=== PATIENT | male | born 1950 | race Caucasian/White ===

== ENCOUNTER 2018-02-01 22:50 | Inpatient (IN) | payer OTHER ==
[~2018-02-01] VITALS: Ht 185.4 cm; Wt 146.1 kg
[~2018-02-01 22:50] MED LIST: ACT/45 PO; ALLO100T57 PO; AMLO10TA3 PO; ATOR-24 PO; BTP80 PO; CLON0.3T PO; DABI150C3 PO; HYDR25TA4 PO; LISI40TA PO; LSX40 PO; LVMI SC; MAGN400T6 PO; METF1000 PO; NRN100 PO; PANT40TA PO; POTA-639 PO; REPA1TAB40 PO; TERA1CAP38 PO; ZOLP10TA PO
[2018-02-01 23:18] LABS: BASO % 0.3 %; BASO ABS # 0.02 K/uL (0-0.2); EOS % 2.6 %; EOS ABS # 0.18 K/uL (0-0.5); HEMATOCRIT 48.7 % (42-52); HEMOGLOBIN 16.2 g/dL (14.0-18.0); IG# 0.02 K/uL (0.00-0.02); LYMPH % 28.5 %; LYMPH ABS # 1.97 K/uL (1.2-3.4); MEAN CELL VOLUME 91.2 fL (80-100); MEAN CORPUSCULAR HEMOGLOBIN 30.3 pg (25-34); MEAN CORPUSCULAR HGB CONC 33.3 g/dl (32-36); MEAN PLATELET VOLUME 9.3 fL (7.4-10.4); MONO % 11.7 %; MONO ABS # 0.81 K/uL (0.11-0.59); NEUT % 56.6 %; NEUT ABS # 3.92 K/uL (1.4-6.5); PLATELET COUNT 168 K/uL (130-400); RED CELL DISTRIBUTION WIDTH CV 15.1 % (11.5-14.5); RED CELL DISTRIBUTION WIDTH SD 49.9 fL (36.4-46.3); WHITE BLOOD COUNT 6.92 K/uL (4.8-10.8)
[2018-02-01] MEDS ORDERED: SODIUM CHLORIDE 0.9% 500ML 500 ML IV STA (23:20)
--- NOTE | 2018-02-01 23:29 | EMERGENCY ROOM VISIT NOTE ---
History Report prepared by Nikolai: Franny Bella Under the Supervision of: Dr. Ja Kilgore M.D. First contact with patient: 22:56 Chief Complaint: CARDIAC ASSESSMENT Stated Complaint: A FIB History of Present Illness The patient is a 67 year old male who presents to the Emergency Room with complaints of an intermittent "racing" heart that began at 2200, one hour ago. He states that he did previously feel nauseous, but denies any vomiting. The patient also denies being lightheaded and being out in the heat today. He has been here several times before for afib and aflutter. He states that the first few times he came here for these symptoms he was given medication that took him out of his aflutter, but more recently, he goes out of this flutter on his own. He was admitted two years ago to be put on sotalol, which worked for his symptoms up until 2 months ago. He also reports being on perdaxa, but denies being on coumadin. The patient states that he follows with Dr. Blankenship who recently put him on a heart monitor for 2 weeks and got off of it on the 18 of January. He states that he has previously had low magnesium and takes 4 tablets to keep his magnesium regular. He denies any previous thyroid issues. 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 A total of 10 systems reviewed and were otherwise negative. Past Medical & Surgical Medical Problems: (1) AA (alcohol abuse) (2) Atrial fibrillation with rapid ventricular response (3) Cerebral aneurysm (4) DM (diabetes mellitus) (5) Encounter for monitoring anti-arrhythmic therapy (6) GERD (gastroesophageal reflux disease) (7) Gout (8) HTN (hypertension) (9) Hyperlipemia Surgical Problems: (1) H/O removal of cyst (2) History of inguinal hernia repair (3) History of repair of anterior cruciate ligament of right knee Family History Diabetes mellitus MOTHER FH: cancer FATHER (Liver) FH: heart disease MOTHER Social History Smoking Status: Never Smoker Drug Use: none Marital Status: Housing Status: lives with family Occupation Status: retired Current/Historical Medications Scheduled Amlodipine (Norvasc), 10 MG PO DAILY Atorvastatin (Lipitor), 40 MG PO DAILY Clonidine Hcl (Catapres), 0.3 MG PO BID Dabigatran Elexilate (Pradaxa), 150 MG PO BID Furosemide (Furosemide), 20 MG PO DAILY Gabapentin (Gabapentin), 100 MG PO TID Hydrochlorothiazide (Hctz), 12.5 MG PO DAILY Insulin Detemir (Levemir), 80 UNITS SC HS Lisinopril (Zestril), 40 MG PO QAM Magnesium Oxide (Mag-Ox), 800 MG PO BID Metformin Hcl (Glucophage), 1,000 MG PO BID Pantoprazole (Protonix), 40 MG PO BID Pioglitazone Hcl (Actos), 45 MG PO DAILY Potassium Ext Rel (Klor-Con), 20 MEQ PO DAILY Repaglinide (Prandin), 1 MG PO DAILY Sotalol HCl (Sotalol HCl), 80 MG PO BID Sucralfate (Sucralfate), 1 TAB PO ACHS Terazosin HCl (Terazosin HCl), 1 MG PO DAILY Scheduled PRN Allopurinol (Zyloprim), 200 MG PO DAILY PRN for GOUT Zolpidem Tartrate (Ambien), 10 MG PO HS PRN for Sleep Allergies Coded Allergies: Simvastatin (Verified Allergy, Intermediate, myalgias, 02/02/18) Sildenafil (Verified Allergy, Unknown, severe headache, 02/02/18) Physical Exam Vital Signs Date Time Temp Pulse Resp B/P (MAP) Pulse Ox O2 Delivery O2 Flow Rate FiO2 02/02/18 00:38 106 18 136/84 96 Room Air 02/01/18 23:49 101 18 136/81 95 Room Air 02/01/18 23:34 106 02/01/18 23:07 107 02/01/18 22:53 36.7 108 18 159/98 100 Room Air Physical Exam GENERAL: Patient is well appearing and in no acute distress. EYES: No scleral icterus, unremarkable pupils. ENT: Mucous membranes moist, no nasal congestion. NECK: No masses appreciated, no meningismus, trachea is midline. RESPIRATORY: No dyspnea. Clear to auscultation and equal bilaterally. No wheeze , no rhonchi. CARDIOVASCULAR: Tachycardic and steady. No murmurs, rubs, gallops appreciated. GASTROINTESTINAL: Abdomen soft, nontender, no peritonitis. Bowel sounds positive. No masses appreciated. BACK: No midline tenderness, no CVA tenderness EXTREMITIES: Normal motion all extremities, no cyanosis, no edema. NEUROLOGIC: Alert and oriented, no acute motor or sensory deficits, no focal weakness, cranial nerves grossly intact. SKIN: No rash, no jaundice, no diaphoresis. Medical Decision & Procedures Laboratory Results 02/01/18 23:05 Red Blood Count 5.34, Mean Corpuscular Volume 91.2, Mean Corpuscular Hemoglobin 30.3, Mean Corpuscular Hemoglobin Concent 33.3, Mean Platelet Volume 9.3, Neutrophils (%) (Auto) 56.6, Lymphocytes (%) (Auto) 28.5, Monocytes (%) (Auto) 11.7, Eosinophils (%) (Auto) 2.6, Basophils (%) (Auto) 0.3, Neutrophils # (Auto ) 3.92, Lymphocytes # (Auto) 1.97, Monocytes # (Auto) 0.81, Eosinophils # (Auto ) 0.18, Basophils # (Auto) 0.02 02/01/18 23:05 Test 02/01/18 23:05 02/02/18 00:58 White Blood Count 6.92 K/uL (4.8-10.8) Red Blood Count 5.34 M/uL (4.7-6.1) Hemoglobin 16.2 g/dL (14.0-18.0) Hematocrit 48.7 % (42-52) Mean Corpuscular Volume 91.2 fL (80-100) Mean Corpuscular Hemoglobin 30.3 pg (25-34) Mean Corpuscular Hemoglobin Concent 33.3 g/dl (32-36) Platelet Count 168 K/uL (130-400) Mean Platelet Volume 9.3 fL (7.4-10.4) Neutrophils (%) (Auto) 56.6 % Lymphocytes (%) (Auto) 28.5 % Monocytes (%) (Auto) 11.7 % Eosinophils (%) (Auto) 2.6 % Basophils (%) (Auto) 0.3 % Neutrophils # (Auto) 3.92 K/uL (1.4-6.5) Lymphocytes # (Auto) 1.97 K/uL (1.2-3.4) Monocytes # (Auto) 0.81 K/uL (0.11-0.59) Eosinophils # (Auto) 0.18 K/uL (0-0.5) Basophils # (Auto) 0.02 K/uL (0-0.2) RDW Standard Deviation 49.9 fL (36.4-46.3) RDW Coefficient of Variation 15.1 % (11.5-14.5) Immature Granulocyte % (Auto) 0.3 % Immature Granulocyte # (Auto) 0.02 K/uL (0.00-0.02) Anion Gap 6.0 mmol/L (3-11) Est Creatinine Clear Calc Drug Dose 76.7 ml/min Estimated GFR () 60.6 Estimated GFR (Non- 52.3 BUN/Creatinine Ratio 12.8 (10-20) Calcium Level 9.6 mg/dl (8.5-10.1) Magnesium Level 1.7 mg/dl (1.8-2.4) Total Creatine Kinase 235 U/L (39-308) Troponin I < 0.015 ng/ml (0-0.045) Bedside Glucose 146 mg/dl (70-99) Laboratory results as reviewed by me. Medications Administered Medications (Trade) Dose Ordered Sig/Abimael Route Start Time Stop Time Status Last Admin Dose Admin Sodium Chloride 500 ml @ 999 mls/hr Q31M STAT IV 02/01/18 23:20 02/01/18 23:50 DC 02/01/18 23:25 999 MLS/HR Magnesium Sulfate (Magnesium Sulfate 1gm / D5W) 1 gm NOW STAT IV 02/01/18 23:41 02/01/18 23:42 DC 02/01/18 23:49 1 GM Clonidine HCl (Catapres Tab) 0.2 mg NOW ONCE PO 02/02/18 01:00 02/02/18 01:01 DC 02/02/18 00:59 0.2 MG Lisinopril (Zestril Tab) 40 mg NOW PO 02/02/18 01:00 02/02/18 02:00 DC 02/02/18 01:36 40 MG Amlodipine Besylate (Norvasc Tab) 10 mg NOW ONCE PO 02/02/18 01:00 02/02/18 01:01 DC 02/02/18 00:59 10 MG ECG Per My Interpretation Indication: palpitations Rate (beats per minute): 106 Rhythm: atrial flutter (with RVR) Change: no significant change Change: Similar to ECG from 12/27/2017. ED Course 2257: The patient was evaluated in room A11B. A complete history and physical exam was performed. 2315: I spoke with Dr. Blankenship-Cardiology and he advises holding any IV medications. He also advises to give the patient fluids and monitor for a few hours. If the patient doesn't convert, Dr. Blankenship advises to admit the patient to the hospital for cardioversion. 2325: I checked on the patient. He is comfortable with a heart rate of 106 and agrees to monitoring. 2343: I checked on the patient and he is stable. 0047: The patient's heart rate is still at 106. He asked me to order his nighttime medications for him when I checked on him. 0052: The patient confirms his evening medications. He is still in aflutter. 0133: I checked on the patient and he is still in aflutter. 0139: I discussed the case with Dr. [facility] Hospitalist and he agreed to evaluate the patient further. Medical Decision Differential: NSR, SVT, PACs, PVCs, Cardiac Dysrhythmia, Endocrine Dysfunction, Electrolyte/Metabolic Abnormality, Pulmonary Embolism, Infectious, GI, amongst other pathologies entertained. Pleasant 67 yr old male with paroxysmal Aflutter with a few visits that last few months for it that always either break just prior or while here. Previously started on Sotalol and has never required electrocardioversion previously. Recently Holter monitor without catching this. Tonight sudden onset palpitations. EKG is consistent with Aflutter RVR at only 106 bpm similar to previous episodes. Hold on Lopressor/Cardizem as he goes very benita after this brakes. No cp, sob, nor hypotension nor other severe symptoms thus no emergent cardioversion. Reviewed with Cards who notes replete Mag and if HR doesn't normalize will need to be admitted to have Cardioversion in AM. Made NPO, given IV mag and IV Fluids. Watched over 3 hours without conversion. Hospitalists consulted for further management. Patient stable without complaints while in bed throughout. I did opt to give him some of his BP meds given he gets out of control quite quickly and he is currently stable. Medication Reconcilliation Current Medication List: was personally reviewed by me Blood Pressure Screening Patient's blood pressure: Elevated blood pressure Referred to Cardiology. Consults Time Called: 2314 Consulting Physician: Dr. Blankenship-Cardiology Returned Call: [phone] Blankenship-Cardiology and he advises holding any IV medications. He also advises to give the patient fluids and monitor for a few hours. If the patient doesn't convert, Dr. Blankenship advises to admit the patient to the hospital for cardioversion. Additional Consults: Time Called: 135 Consulted Physician: Dr. Lawrence Hospitalist Returned Call: 138 Additional Comments: I discussed the case with Dr. Lawrence Hospitalist and he agreed to evaluate the patient further. Impression Primary Impression: Atrial flutter with rapid ventricular response Additional Impression: Hypomagnesemia Scribe Attestation The scribe's documentation has been prepared under my direction and personally reviewed by me in its entirety. I confirm that the note above accurately reflects all work, treatment, procedures, and medical decision making performed by me. Departure Information Prescriptions Sucralfate (Sucralfate) 1 Gm Tab 1 TAB PO ACHS for 30 Days, TAB 3 Refills Prov: Magan Gray MD 02/02/18 Furosemide (Furosemide) 40 Mg Tab 20 MG PO DAILY, #14 Prov: Magan Gray MD 02/02/18 Magnesium Oxide (Mag-Ox) 400 Mg Tab 800 MG PO BID, #20 Prov: Magan Gray MD 02/02/18 Referrals Vishnu Allison M.D. (PCP) Patient Instructions My [facility] Problem Qualifiers
[2018-02-01 23:39] LABS: BLOOD UREA NITROGEN 18 mg/dl (7-18); CALCIUM 9.6 mg/dl (8.5-10.1); CARBON DIOXIDE 29 mmol/L (21-32); CREATININE 1.37 mg/dl (0.60-1.40); GLUCOSE 149 mg/dl (70-99); SODIUM 139 mmol/L (136-145)
[2018-02-01] MEDS ORDERED: MAGNESIUM SULFATE 1GM / D5W 1 GM BAG IV STA (23:41)
[2018-02-02] VITALS (14 sets, daily range): BP systolic 93–149; BP diastolic 62–91; PULSE 50–113; TEMP 36.4–36.7; O2SAT 93–98; Ht 185.4 cm; Wt 146.1 kg
[2018-02-02] MEDS ORDERED: LISINOPRIL 40 MG TAB PO SCH ×2 (01:00→09:00)
[2018-02-02] MEDS ORDERED: CLONIDINE HCL 0.1 MG TAB PO ONE (01:00)
[2018-02-02] MEDS ORDERED: AMLODIPINE BESYLATE 5 MG TAB PO ONE (01:00)
[2018-02-02] MEDS ORDERED: ACETAMINOPHEN 325 MG TAB PO PRN (02:30)
[2018-02-02] MEDS ORDERED: NITROGLYCERIN 0.4 MG SL PER TAB CHARGE SL PRN (02:30)
[2018-02-02] MEDS ORDERED: ZOLPIDEM TARTRATE 10 MG TAB PO PRN (02:30)
[2018-02-02] MEDS ORDERED: POLYETHYLENE (MIRALAX) 17 GM PACK PO PRN (02:30)
[2018-02-02] MEDS ORDERED: ONDANSETRON INJ 2 MG/ML 2 ML VIAL IV PRN (02:30)
[2018-02-02] MEDS ORDERED: ALLOPURINOL 100 MG TAB PO PRN (02:30)
[2018-02-02] MEDS ORDERED: ALUMINUM/MAGNESIUM/SIMETH (MAALOX MAX) 30 ML UDC PO PRN (02:30)
[2018-02-02] MEDS ORDERED: MAGN400T6 PO (02:40)
[2018-02-02] MEDS ORDERED: SUCR1TAB PO (02:40)
[2018-02-02] MEDS ORDERED: LSX40 PO (02:40)
[2018-02-02] MEDS ORDERED: CARBOHYDRATES FOR HYPOGLYCEMIA PO PRN (03:00)
[2018-02-02] MEDS ORDERED: GLUCAGON FOR INJ 1 MG VIAL IM PRN (03:00)
[2018-02-02] MEDS ORDERED: GLUCOSE 40% GEL 15 GM TUBE PO PRN (03:00)
[2018-02-02] MEDS ORDERED: DEXTROSE 50% 50 ML SYR IV PRN (03:00)
[2018-02-02] MEDS ORDERED: GLUCOSE 10 TABS/TUBE PO PRN (03:00)
--- NOTE | 2018-02-02 04:40 | HISTORY & PHYSICAL EXAMINATION ---
DATE OF ADMISSION: 02/02/2018 CHIEF COMPLAINT: Rapid atrial fibrillation, atrial flutter. HISTORY OF PRESENT ILLNESS: This is a 67-year-old male with past medical history significant for hyperlipidemia, diabetes, history of subarachnoid hemorrhage, history of GERD, hypertension, paroxysmal atrial fibrillation, obstructive sleep apnea, morbid obesity, gout. Presents with rapid AFib. The patient says last time he was in the ER with rapid atrial fibrillation, atrial flutter, and it spontaneously converted back to sinus rhythm. He is on sotalol since 2016. He was doing okay until the past few months. The patient is on Pradaxa for anticoagulation. Most of the times when he is in AFib and atrial flutter, when he checks his blood pressure his monitor notifies him, but today he was lying on the bed when he heard his heart was beating irregular and fast and checked his pulse, it was irregular and maximum it went was 109 and he came to the ER. In the ER, he was given his home medications and waited for 2-3 hours to see if he spontaneously converts back, but it did not happen. 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 if patient does not convert spontaneously meanwhile and not to give any IV medications at this time. Patient is currently resting comfortably and hemodynamically stable. No headaches, no dizziness, no blurred vision, no earache, no runny nose, no sore throat, no difficulty swallowing. No cough, no chest pain, no shortness of breath, no fever, no chills, no sweating, no nausea, no abdominal pain. He had a couple of episodes of blood in the stools couple of days ago probably from his hemorrhoids, but this is resolved now. Normal bladder movements. Has chronic lower extremity edema. ALLERGIES: VIAGRA AND ZOCOR. PAST MEDICAL HISTORY: As mentioned above. PAST SURGICAL HISTORY: Colonoscopy, catheter placement brachiocephalic third order branching, Inguinal hernia repair, removal of the Khan cyst, cruciate ligament repair, right eyelid surgery. MEDICATIONS: The patient is currently on Levemir 80 subcutaneously at bedtime, Ambien 10 mg at bedtime p.r.n., lisinopril 40 mg p.o. daily, metformin 1000 mg p.o. b.i.d., Protonix 40 mg p.o. b.i.d., Actos 45 mg p.o. daily, terazosin 1 mg p.o. at bedtime, magnesium oxide 800 mg p.o. b.i.d., hydrochlorothiazide 12.5 mg p.o. daily, clonidine 0.3 mg p.o. b.i.d., sotalol 80 mg p.o. b.i.d., amlodipine 10 mg p.o. daily, allopurinol 200 mg p.o. daily, Klor-Con 20 mEq p.o. daily, Prandin 1 mg p.o. daily 15 minutes before the largest meal, gabapentin 100 mg p.o. daily, Pradaxa 150 mg p.o. b.i.d., sucralfate 1 gram p.o. a.c. and at bedtime, Lipitor 40 mg p.o. daily, Flonase 2 sprays into each nostril daily, Lasix 20 mg p.o. daily, Imitrex p.r.n. FAMILY HISTORY: Significant for father had liver cancer, mother had diabetes and heart disorder. SOCIAL HISTORY: . No smoking history. History of alcoholism present. Currently, no drug use. REVIEW OF SYMPTOMS: As per HPI. Rest of review of symptoms negative. PHYSICAL EXAMINATION: GENERAL: Patient is morbidly obese, not in distress. VITAL SIGNS: Temperature 36.7, pulse 106, respiratory rate 18, blood pressure 136/84, oxygen 96% room air. HEENT: No pallor, no icterus. Pupils equal, round, reactive. NECK: No JVD, no neck masses, no carotid bruits. CARDIOVASCULAR: S1, S2 heard. Irregular rhythm, no murmur, no gallop. RESPIRATORY SYSTEM: Normal AP diameter. No accessory muscle use. No wheezing, no crackles. ABDOMEN: Soft, bowel sounds present. Nontender. No distention. CENTRAL NERVOUS SYSTEM: Cranial nerves II-XII grossly intact. Nonfocal. EXTREMITIES: Chronic lower extremity edema present. No erythema seen. LABORATORY DATA: WBC 6.9, hemoglobin 16.2, hematocrit 48.7, platelets 168. Sodium 139, potassium 4, chloride 104, bicarbonate 29, BUN 18, creatinine 1.3, serum glucose 149, calcium 9.6, magnesium 1.7, total creatine kinase 235. Troponin I less than 0.015. EKG: Shows sinus tachycardia with rate of 106, nonspecific ST changes. ASSESSMENT AND PLAN: This is a 67-year-old male who presents with atrial fibrillation and atrial flutter. 1. Atrial fibrillation and atrial flutter. EKG shows sinus tachycardia. On sotalol. We will monitor in tele floor. Plan for cardioversion in the a.m. if continue to be in a fib/flutter Not to give any IV medication currently. Currently the patient is hemodynamically stable. The patient says he is also noncompliant with CPAP machine for the last 2 months as he is trying to get new filters. Magnesium is low at 1.7. Received iv magnesium in ER. The patient is on magnesium supplements at home which will be continued. Potassium seems okay. We will update the echo. Cardiology was noted by the ER and plan for cardioversion in the a.m. if he is still in atrial fibrillation, atrial flutter. Continue Pradaxa and sotalol. 2. History of diabetes. Continue his Levemir 80 units at bedtime. If he still NPO, we will cut back to 40 at bedtime. Hold his home p.o. medications. Place him on insulin sliding scale. Follow HbA1c levels. 3. History of hypertension. Continue lisinopril, terazosin, hydrochlorothiazide, Lasix, amlodipine, clonidine. We will monitor the blood pressure. 4. History of hyperlipidemia, continue statin. 5. Chronic lower extremity edema. Continue his hydrochlorothiazide and Lasix. 6. Gastroesophageal reflux disease, continue his PPI. 7. Obstructive sleep apnea. The patient says not using CPAP for last 2 months . CPAP q hs in hospital. 8. Morbid obesity, needs counseling. 9. Deep venous thrombosis prophylaxis, on Pradaxa. DISPOSITION: Admit to tele floor. Expect to discharge home and follow with family doctor and cardiology. Level 1 full code. MTDD
[2018-02-02] MEDS: INSULIN ASPART 100 UNITS/ML 3 ML PEN SC SCH ×2 (06:00→13:00)
[2018-02-02] MEDS ORDERED: PERFLUTREN LIPID MICROSPHERE (DEFINITY) IV ONE (06:58)
[2018-02-02 07:44] LABS: CREATININE 1.05 mg/dl (0.60-1.40); POTASSIUM 3.7 mmol/L (3.5-5.1)
[2018-02-02] MEDS: SUCRALFATE 1 GM TAB PO SCH ×3 (08:01→15:51)
[2018-02-02 08:03] LABS: HEMOGLOBIN A1C 6.5 % (4.5-5.6)
[2018-02-02] MEDS: GABAPENTIN 100 MG CAP PO SCH ×2 (08:07→14:04)
--- NOTE | 2018-02-02 08:35 | ECHOCARDIOGRAM REPORT ---
*NOTICE TO RECEIVING CONSTITUTION PARTY AGENCY This information is strictly Confidential and protected under [place] law. [place] law prohibits you from making any further disclosure of this information unless further disclosure is expressly permitted by the written consent of the person to whom it pertains or is authorized by law. A general authorization for the release of medical or other information is not sufficient for this purpose. Hospital accepts no responsibility if the information is made available to any other person, INCLUDING THE PATIENT. Interpretation Summary * Name: DARLENE DUNNE Study Date: 02/02/2018 06:33 AM BP: 149/91 mmHg * Patient Location: C.2T\S\S241\S\2 HR: 107 * : 1950 (M/d/yyyy) Gender: Male Height: 73 in * Age: 67 yrs Ethnicity: CA Weight: 323 lb * Ordering Physician: Magan Gray * Referring Physician: Self, Referred * Performed By: Estephania Andrews RCS * * Reason For Study: A-FIB * BSA: 2.6 m2 * -- Conclusions -- * Normal LV chamber size with moderate concentric LVH. * Normal LV systolic function, EF 55-60%. * No segmental left ventricular wall motion abnormalities are noted. * No significant valvular pathology. Procedure Details * A complete two-dimensional transthoracic echocardiogram was performed (2D, M-mode, Doppler and color flow Doppler). * The study was technically difficult. * A contrast injection of Definity was performed to improve assessment of LV function. * Contrast was injected into an intravenous site in the right arm. * One vial of Definity ultrasound contrast was diluted in normal saline to a total volume of 10 ml. A total of '2' ml of solution was administered during imaging. * Lot # [id number] of Definity utilized for procedure. * Expiration date JAN 07. * The attending nurse who injected the contrast agent was TANMAY BRENNAN, [place]. Left Ventricle * The left ventricle is normal in size. * There is moderate concentric left ventricular hypertrophy. * Left ventricular systolic function is normal. * No segmental left ventricular wall motion abnormalities are noted. * Ejection Fraction = 55-60%. * The left ventricular wall motion is normal. Right Ventricle * The right ventricular cavity size is normal (basal dimension <4.2 cm in right ventricular apical 4-chamber view). * The right ventricular systolic function is normal as assessed by tricuspid annular plane systolic excursion (TAPSE) (normal >1.5 cm). Atria * The left atrial size is normal. * Right atrial size is normal. * No ASD detected; PFO is not assessed. Mitral Valve * The mitral valve is normal in structure and function. Tricuspid Valve * The tricuspid valve is normal in structure and function. Aortic Valve * The aortic valve is normal in structure and function. Pulmonic Valve * The pulmonary valve is not well seen, but the Doppler examination is normal without significant regurgitation or stenosis. Great Vessels * The aortic root is normal size. Pericardium/Pleural * There is no pericardial effusion. MMode 2D Measurements and Calculations IVSd 1.6 cm IVSs 1.5 cm LVIDd 3.3 cm LVIDs 2.5 cm LVPWd 1.5 cm LVPWs 1.6 cm IVS/LVPW 1.0 FS 22.4 % EDV(Teich) 43.6 ml ESV(Teich) 23.4 ml EF(Teich) 46.3 % EDV(cubed) 35.4 ml ESV(cubed) 16.5 ml EF(cubed) 53.2 % % IVS thick -5.84 % % LVPW thick 4.4 % LV mass(C)d 185.8 grams LV mass(C)dI 70.4 grams/m\S\2 LV mass(C)s 133.5 grams LV mass(C)sI 50.6 grams/m\S\2 SV(Teich) 20.2 ml SI(Teich) 7.6 ml/m\S\2 SV(cubed) 18.8 ml SI(cubed) 7.1 ml/m\S\2 Ao root diam 3.8 cm Ao root area 11.4 cm\S\2 ACS 2.5 cm LA dimension 3.2 cm LA/Ao 0.84 LVOT diam 2.0 cm LVOT area 3.2 cm\S\2 LVAd ap4 40.2 cm\S\2 LVLd ap4 8.6 cm EDV(MOD-sp4) 154.7 ml EDV(sp4-el) 160.0 ml LVAs ap4 29.2 cm\S\2 LVLs ap4 7.8 cm ESV(MOD-sp4) 92.0 ml ESV(sp4-el) 93.3 ml EF(MOD-sp4) 40.6 % EF(sp4-el) 41.7 % LVAd ap2 34.7 cm\S\2 LVLd ap2 8.5 cm EDV(MOD-sp2) 117.6 ml EDV(sp2-el) 119.8 ml LVAs ap2 21.4 cm\S\2 LVLs ap2 7.0 cm ESV(MOD-sp2) 57.0 ml ESV(sp2-el) 55.1 ml EF(MOD-sp2) 51.5 % EF(sp2-el) 54.0 % LVLd %diff -0.31 % EDV(MOD-bp) 135.2 ml LVLs %diff -10.65 % ESV(MOD-bp) 75.4 ml EF(MOD-bp) 44.2 % SV(MOD-sp4) 62.8 ml SI(MOD-sp4) 23.8 ml/m\S\2 SV(MOD-sp2) 60.5 ml SI(MOD-sp2) 23.0 ml/m\S\2 SV(MOD-bp) 59.7 ml SI(MOD-bp) 22.6 ml/m\S\2 SV(sp4-el) 66.7 ml SI(sp4-el) 25.3 ml/m\S\2 SV(sp2-el) 64.7 ml SI(sp2-el) 24.5 ml/m\S\2 Doppler Measurements and Calculations MV E max lorelei 88.3 cm/sec MV P1/2t max olrelei 97.7 cm/sec MV P1/2t 60.5 msec MVA(P1/2t) 3.6 cm\S\2 MV dec slope 473.4 cm/sec\S\2 MV dec time 0.20 sec Ao V2 max 122.2 cm/sec Ao max PG 6.0 mmHg Ao max PG (full) 3.2 mmHg GUALBERTO(V,A) 2.2 cm\S\2 GUALBERTO(V,D) 2.2 cm\S\2 AI max lorelei 352.9 cm/sec AI max PG 49.8 mmHg AI dec slope 127.4 cm/sec\S\2 AI P1/2t 811.5 msec LV V1 max PG 2.8 mmHg LV V1 max 83.9 cm/sec PA V2 max 97.7 cm/sec PA max PG 3.8 mmHg TR max lorelei 187.3 cm/sec
[2018-02-02] MEDS ORDERED: FENTANYL CITRATE INJ 50 MCG/1 ML 2 ML VIAL ONE ×2 (08:52)
[2018-02-02] MEDS ORDERED: MIDAZOLAM HCL 5 MG/ML 1 ML VIAL ONE (08:55)
--- NOTE | 2018-02-02 08:57 | Pre Sedation Assessment ---
Pre Sedation Assessment General Date of Sedation: Feb 02, 2018. Vital Signs Past 12 Hours Date Time Temp Pulse Resp B/P (MAP) Pulse Ox O2 Delivery O2 Flow Rate FiO2 02/02/18 07:50 36.7 90 18 120/82 (95) 94 Room Air 02/02/18 02:50 36.7 113 18 149/91 98 Room Air 02/02/18 02:40 102 18 128/84 95 02/02/18 00:38 106 18 136/84 96 Room Air 02/01/18 23:49 101 18 136/81 95 Room Air 02/01/18 23:34 106 02/01/18 23:07 107 02/01/18 22:53 36.7 108 18 159/98 100 Room Air Review Cardiovascular: no edema, no gallop, no JVD, no murmur, normal peripheral pulses, + irregularly irregular Lungs: chest non-tender, lungs clear, normal breath sounds, no respiratory distress, no accessory muscle use Pre-Sedation Airway Assessment Smoking Status: Never Smoker Hx of Sleep Apnea: Yes Short Thick Neck: Yes Thyro-mental Distance: < or =3 Finger Breadths Oral Cavity: WNL Mallampati Classification: Class III ASA Classification: Class II Procedure Planning Contraindications for Sedation: None Current Medications Reviewed: Yes Notes The planned sedation has been discussed with the patient. Informed Consent was obtained. I have identified the patient, determined the appropriateness of sedation and have assessed the patient immediately prior to the procedure. All medicine(s) and interventions are by my order.
--- NOTE | 2018-02-02 08:58 | History & Physical Bridge Note ---
H&P Re-Evaluation Bridge Note: I have examined the patient, reviewed the History & Physical and in the interval since the performance of the History & Physical I have noted the following changes of clinical significance: No changes noted
[2018-02-02] MEDS ORDERED: HYDROCHLOROTHIAZIDE 25 MG TAB PO SCH (09:00)
[2018-02-02] MEDS ORDERED: FUROSEMIDE 20 MG TAB PO SCH (09:00)
[2018-02-02] MEDS ORDERED: ATORVASTATIN 40 MG TAB PO SCH (09:00)
[2018-02-02] MEDS ORDERED: SOTALOL HCL 80 MG TAB PO SCH (09:00)
[2018-02-02] MEDS ORDERED: DABIGATRAN ELEXILATE 75 MG CAP PO SCH (09:00)
[2018-02-02] MEDS ORDERED: PANTOprazole SOD 40 MG TAB PO SCH (09:00)
[2018-02-02] MEDS ORDERED: MAGNESIUM OXIDE 400 MG TAB PO SCH (09:00)
[2018-02-02] MEDS ORDERED: AMLODIPINE BESYLATE 5 MG TAB PO SCH (09:00)
[2018-02-02] MEDS ORDERED: CLONIDINE HCL 0.3 MG TAB PO SCH (09:00)
[2018-02-02] MEDS ORDERED: POTASSIUM CHLORIDE 20 MEQ TABCR PO SCH (09:00)
--- NOTE | 2018-02-02 09:24 | Post Sedation Assessment ---
Post Sedation Assessment General Date of Sedation Feb 02, 2018. Vital Signs: Vital Signs Past 12 Hours Date Time Temp Pulse Resp B/P (MAP) Pulse Ox O2 Delivery O2 Flow Rate FiO2 02/02/18 07:50 36.7 90 18 120/82 (95) 94 Room Air 02/02/18 02:50 36.7 113 18 149/91 98 Room Air 02/02/18 02:40 102 18 128/84 95 02/02/18 00:38 106 18 136/84 96 Room Air 02/01/18 23:49 101 18 136/81 95 Room Air 02/01/18 23:34 106 02/01/18 23:07 107 02/01/18 22:53 36.7 108 18 159/98 100 Room Air Post Procedure Recovery Score Activity: (2) Moves 4 extremities * Respiration: (2) Deep breath/cough Circulation: (2) +/-20% PreAnes Value Consciousness: (2) Fully Awake Oxygen Saturation: (2) > 92% On Room Air Discharge Sedation Level of Care: Higher Level of Care Post Sedation Plan On clinical assessment, the patient appears to have tolerated the sedation without complications. Patient is recovering as anticipated. Patient will continue to be monitored by nursing and may be discharged when sedation discharge criteria are met per below protocol. Upon Completions of procedure and additional 15 minutes continue every 5 minute vital signs and the P.A.R. score; then discharge to a Phase I or Fast Track to Phase II per the following guidelines: * Discharge Patient to appropriate Phase II area if PAR is 8 or greater or return to pre- procedure baseline. The post - procedure orders will be as directed. * If PAR score is less than 8 or not return to pre-procedure baseline then patient will follow Phase I monitoring till PAR is reached for Phase II. The Phase I may be done in procedure room or may call to secure a Phase I area. * If naloxone or flumazenil are used for reversal, hold in Phase I for an additional 60 -120 minutes before discharge to Phase II. Please call the Sedation Physician to re-evaluate and complete post-note for discharge to Phase II area. Do NOT discharge from procedure sedation or Phase 1 until post- sedation evaluation note is complete by procedure /sedation MD Sedation Discharge Instructions to be given to the patient at discharge to home.
--- NOTE | 2018-02-02 09:26 | [facility] Post Operative Brief Note ---
Immediate Operative Summary Operative Date Feb 02, 2018. Pre-Operative Diagnosis paroxysmal atrial fibrillation Post-Operative Diagnosis same Procedure(s) Performed DC cardioversion Start time: 910 Stop time: 919 Surgeon Krzysztof Fire Protection Designer Surgeon(s) Sil WALLACE Estimated Blood Loss none Findings Consistent with Post-Op Diagnosis Specimens none Drains None Anesthesia Type IV Sedat Cons RN Only Complication(s) none Disposition Accompanied Pt To Recover: yes Disposition: PCU Overlapping Procedure I was present for: the critical portions of procedure. I was immediately available: during the entire case
--- NOTE | 2018-02-02 09:28 | Procedure Note ---
Procedure Note Date of Service Feb 02, 2018. Procedure Note Informed consent obtained. Benefits, risks and alternatives to cardioversion discussed with patient and , agree to proceed Pt prepped Conscious sedation achieved with a total of 3mg Versed and 50mcg of Fentanyl 360J of synchronized, direct current energy delivered with successful cardioversion to sinus bradycardia pt tolerated well no complications Plan: Recover in PCU cont sotalol and pradaxa uninterrupted ok for d/c this PM my office will call to arrange outpatient EP evaluation
[2018-02-02] MEDS ORDERED: POTASSIUM CHLORIDE 10 MEQ TABCR PO STA (09:30)
--- NOTE | 2018-02-02 09:36 | CARDIOLOGY CONSULTATION ---
DATE OF CONSULTATION: 02/02/2018 CONSULTATION REQUESTED BY: Dr. Kilgore. REASON FOR CONSULTATION: Recurrent atrial fibrillation with rapid ventricular response. HISTORY OF PRESENT ILLNESS: Mr. Harris is a very pleasant 67-year-old gentleman who follows with myself as an outpatient for his history of paroxysmal atrial fibrillation. The patient presented to [facility] late in the p.m. of 02/02/2018 with a recurrent episode of palpitations. The patient states that this is the normal presentation for his atrial fibrillation. He states it started last evening when he was sitting, watching television. Again, he just started feeling his heart racing in his chest. He denied any associated shortness of breath, chest pain, lightheadedness, dizziness, or syncope. He waited a few minutes, but the symptoms persisted, so he came into the Emergency Department. He states he has been compliant with medications and has not missed any doses of his Pradaxa or sotalol. In the past, the patient normally goes into atrial fibrillation in the setting of hypo-magnesium; however, we discontinue his hydrochlorothiazide as an outpatient and have him on copious magnesium supplementation; however, upon presentation in the ER, it was only 1.7. It was repleted. His magnesium level was 2.0 this a.m. However, he continued to be in atrial fibrillation. However, his rates have improved. He states currently at rest, he still feels his heart beating a little faster in his chest than normal, but not aggressively so. Otherwise, he states he has been fine lately. PAST SURGICAL HISTORY: 1. Knee surgery x2. 2. Hernia repair. 3. Eyelid surgery. 4. Colonoscopy. MEDICAL ILLNESSES: 1. Paroxysmal atrial fibrillation on chronic sotalol and Pradaxa therapy with a CHARLOTTE score of 2. 2. Hypertension. 3. Diabetes. 4. History of subarachnoid hemorrhage that was cleared for anticoagulation. 5. Obstructive sleep apnea, nocturnal CPAP. 6. Elevated BMI. 7. Remote history of alcohol dependence. 8. Dyslipidemia. FAMILY HISTORY: Noncontributory. SOCIAL HISTORY: The patient denies any tobacco use, has remote alcoholism history, does not drink in some time. Denies any recreational drug use. He is . He lives at home with his . 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 REVIEW OF SYSTEMS: As per HPI, all other review of systems reviewed and negative at this time. ALLERGIES: 1. VIAGRA. 2. ZOCOR. MEDICATIONS AN OUTPATIENT: 1. Sotalol 80 mg b.i.d. 2. Pradaxa 150 mg b.i.d. 3. Lisinopril 40 mg daily. 4. Terazosin 2 mg at bedtime. 5. Magnesium oxide 800 mg b.i.d. 6. Clonidine 0.3 mg b.i.d. 7. Amlodipine 10 mg daily. 8. Atorvastatin 40 mg daily. 9. Lasix 20 mg daily. 10. Insulin as directed. 11. Prandin daily. 12. Actos daily. 13. Protonix daily. PHYSICAL EXAMINATION: VITALS: Temperature 36.7, pulse 90, respiratory rate 12, blood pressure 120/82. GENERAL: Awake, alert, oriented x3, in no acute distress. HEENT: Normocephalic, atraumatic. Pupils equal, round, reactive to light and accommodation. Extraocular muscles intact. Anicteric sclerae. Moist mucous membranes. NECK: No JVD, no bruit. CARDIOVASCULAR: Irregularly irregular, unable to appreciate any murmurs, rubs or gallops. PULMONARY: Clear to auscultation bilaterally. No rales, rhonchi, or wheezing. ABDOMEN: Bowel sounds x4, soft. No rebound, guarding, tenderness. No organomegaly. EXTREMITIES: No clubbing, cyanosis or edema. +2 pedal pulses bilaterally. SKIN: Warm and dry. TEST RESULTS: A 2D echocardiogram performed today was read as normal LV chamber size, mild concentric LVH, normal LV systolic function, EF 55-60%, no segmental left ventricle wall motion abnormalities were noted. No significant valvular pathology. A 12-lead EKG performed in the Emergency Department independently reviewed at this time shows a narrow complex tachycardia 106 beats per minute with P waves before every QRS. Repeat EKG today at a higher speed shows atrial fibrillation. IMPRESSION: 1. Paroxysmal atrial fibrillation, symptomatic with rapid ventricular response. 2. History of obstructive sleep apnea. 3. Hypertension. 4. Dyslipidemia. RECOMMENDATIONS: It was my pleasure to see Mr. Harris in consultation today. Once again, the patient has gone in atrial fibrillation which is a recurring issue for him. Luckily, he has never needed cardioversion in the past and has always spontaneously converted to sinus rhythm with electrolyte replacement. Unfortunately, his electrolytes are not significantly off at this time and he has remained in atrial fibrillation, so we will proceed with discontinue cardioversion. The procedure along with the risks and alternative therapies were discussed with the patient and his . They both state that they understand, they agree with proceeding with a cardioversion and are accepting of the risks. My ultimate plan would be to continue him on sotalol and Pradaxa afterwards. Hopefully, discharge him to home later on today and then followup with electrophysiology as an outpatient to discuss candidacy for atrial fibrillation ablation and again the patient and his are in agreement with this plan.
[2018-02-02] MEDS ORDERED: NURSING VERBAL MED ORDER ONE (09:45)
[2018-02-02] MEDS ORDERED: FENTANYL CITRATE INJ 50 MCG/1 ML 2 ML VIAL IV SCH (10:00)
[2018-02-02] MEDS ORDERED: MIDAZOLAM HCL 5 MG/ML 1 ML VIAL IV SCH (10:00)
[2018-02-02] MEDS ORDERED: NURSING DECISION MEDICATION ORDER SCH (15:45)
--- NOTE | 2018-02-02 16:03 | Progress Note ---
Medicine Progress Note Date & Time of Visit: Feb 02, 2018 at 16:03 . Subjective Admitted last night with recurrent atrial fibrillation / flutter. Successful cardioversion performed by Dr. Blankenship this morning. Feels well. No CP or SOB. Ambulating. . Objective Last 8 Hrs Date Time Temp Pulse Resp B/P (MAP) Pulse Ox O2 Delivery O2 Flow Rate FiO2 02/02/18 16:00 36.4 56 18 95 Room Air 02/02/18 15:26 36.4 56 18 133/81 (98) 95 Room Air 02/02/18 11:40 36.7 51 18 101/64 (76) 93 Room Air 02/02/18 09:40 53 16 101/65 95 Room Air 02/02/18 09:35 54 16 93/62 96 Room Air 2.0 02/02/18 09:30 50 18 106/69 95 Room Air 2.0 02/02/18 09:25 36.7 52 16 108/69 95 Room Air 2.0 02/02/18 09:20 55 18 121/75 98 Nasal Cannula 2.0 02/02/18 09:18 105 16 125/88 95 Nasal Cannula 2.0 02/02/18 09:13 103 136/89 98 Nasal Cannula 2.0 02/02/18 09:11 103 18 128/68 97 Nasal Cannula 2.0 Physical Exam: General- no distress Lungs- clear to auscultation; no respiratory distress Cardiovascular- RRR; no murmur or gallop appreciated; no JVD; chronic-appearing 1+ pretibial edema Abdomen- + bowel sounds, soft, nontender Extremities- no cyanosis; no calf tenderness Neuro- alert, oriented Skin- warm & dry . Laboratory Results: Last 24 Hours Test 02/01/18 23:05 02/02/18 00:58 02/02/18 06:11 02/02/18 06:53 White Blood Count 6.92 K/uL Red Blood Count 5.34 M/uL Hemoglobin 16.2 g/dL Hematocrit 48.7 % Mean Corpuscular Volume 91.2 fL Mean Corpuscular Hemoglobin 30.3 pg Mean Corpuscular Hemoglobin Concent 33.3 g/dl Platelet Count 168 K/uL Mean Platelet Volume 9.3 fL Neutrophils (%) (Auto) 56.6 % Lymphocytes (%) (Auto) 28.5 % Monocytes (%) (Auto) 11.7 % Eosinophils (%) (Auto) 2.6 % Basophils (%) (Auto) 0.3 % Neutrophils # (Auto) 3.92 K/uL Lymphocytes # (Auto) 1.97 K/uL Monocytes # (Auto) 0.81 K/uL Eosinophils # (Auto) 0.18 K/uL Basophils # (Auto) 0.02 K/uL RDW Standard Deviation 49.9 fL RDW Coefficient of Variation 15.1 % Immature Granulocyte % (Auto) 0.3 % Immature Granulocyte # (Auto) 0.02 K/uL Sodium Level 139 mmol/L 139 mmol/L Potassium Level 4.0 mmol/L 3.7 mmol/L Chloride Level 104 mmol/L 105 mmol/L Carbon Dioxide Level 29 mmol/L 27 mmol/L Anion Gap 6.0 mmol/L 7.0 mmol/L Blood Urea Nitrogen 18 mg/dl 15 mg/dl Creatinine 1.37 mg/dl 1.05 mg/dl Est Creatinine Clear Calc Drug Dose 76.7 ml/min 99.9 ml/min Estimated GFR () 60.6 83.5 Estimated GFR (Non- 52.3 72.1 BUN/Creatinine Ratio 12.8 14.1 Random Glucose 149 mg/dl 114 mg/dl Calcium Level 9.6 mg/dl 9.0 mg/dl Magnesium Level 1.7 mg/dl 2.0 mg/dl Total Creatine Kinase 235 U/L Troponin I < 0.015 ng/ml 0.017 ng/ml Bedside Glucose 146 mg/dl 111 mg/dl Estimated Average Glucose 140 mg/dl Hemoglobin A1c 6.5 % Test 02/02/18 07:24 02/02/18 11:36 Bedside Glucose 113 mg/dl 180 mg/dl Assessment & Plan RECURRENT ATRIAL FIB / FLUTTER Prior history of PAF. Presented to ED with atrial flutter. Serum magnesium slightly low at 1.7, but in persistent atrial flutter after correction. Serum potassium was normal. Cardiology consulted. Successfully cardioverted. Continue sotalol and dabigatran. EP referral anticipated. HYPERTENSION Continue HCTZ, sotalol, amlodipine, clonidine. DM TYPE 2 Hgb A1C 6.5. FBS 113. Discharge on usual regimen. VTE PROPHYLAXIS Dabigatran. DISPOSITION Discharge to home. Family Medicine follow-up with Dr. Alilson. Cardiology follow-up with Dr. Blankenship. Current Inpatient Medications: Current Inpatient Medications Medications (Trade) Dose Ordered Sig/Abimael Route Start Time Stop Time Status Last Admin Dose Admin Acetaminophen (Tylenol Tab) 650 mg Q4H PRN PO 02/02/18 02:30 03/04/18 02:29 Al Hydrox/Mg Hydrox/Simethicone (Maalox Max Susp) 15 ml Q4H PRN PO 02/02/18 02:30 03/04/18 02:29 Ondansetron HCl (Zofran Inj) 4 mg Q6H PRN IV 02/02/18 02:30 03/04/18 02:29 Nitroglycerin (Nitrostat Tab) 0.4 mg UD PRN SL 02/02/18 02:30 03/04/18 02:29 Polyethylene (Miralax Powder Packet) 17 gm DAILY PRN PO 02/02/18 02:30 03/04/18 02:29 Allopurinol (Zyloprim Tab) 200 mg DAILY PRN PO 02/02/18 02:30 03/04/18 02:29 Amlodipine Besylate (Norvasc Tab) 10 mg DAILY PO 02/02/18 09:00 03/04/18 08:59 02/02/18 08:03 10 MG Atorvastatin Calcium (Lipitor Tab) 40 mg DAILY PO 02/02/18 09:00 03/04/18 08:59 02/02/18 08:05 40 MG Clonidine HCl (Catapres Tab) 0.3 mg BID PO 02/02/18 09:00 03/04/18 08:59 02/02/18 08:05 0.3 MG Gabapentin (Neurontin Cap) 100 mg TID PO 02/02/18 09:00 03/04/18 08:59 02/02/18 14:04 100 MG Lisinopril (Zestril Tab) 40 mg QAM PO 02/02/18 09:00 03/04/18 08:59 02/02/18 08:04 40 MG Pantoprazole Sodium (Protonix Tab) 40 mg BID PO 02/02/18 09:00 03/04/18 08:59 02/02/18 08:04 40 MG Potassium Chloride (Klor-Con Tab) 20 meq DAILY PO 02/02/18 09:00 9/13/18 08:59 02/02/18 08:04 20 MEQ Sotalol HCl (Betapace Tab) 80 mg BID PO 02/02/18 09:00 03/04/18 08:59 02/02/18 08:02 80 MG Zolpidem Tartrate (Ambien Tab) 10 mg HS PRN PO 02/02/18 02:30 03/04/18 02:29 Dabigatran (Pradaxa Cap) 150 mg BID PO 02/02/18 09:00 03/04/18 08:59 02/02/18 08:06 150 MG Insulin Detemir (Levemir Flexpen/ FlexTouch) 80 units HS SC 02/02/18 21:00 03/04/18 20:59 Furosemide (Lasix Tab) 20 mg DAILY PO 02/02/18 09:00 03/04/18 08:59 02/02/18 08:05 20 MG Magnesium Oxide (Mag-Ox Tab) 800 mg BID PO 02/02/18 09:00 03/04/18 08:59 02/02/18 08:06 800 MG Sucralfate (Carafate Tab) 1 gm ACHS PO 02/02/18 07:00 03/04/18 06:59 02/02/18 15:51 1 GM Terazosin HCl (Hytrin Cap) 1 mg DAILY PO 02/02/18 09:00 03/04/18 08:59 02/02/18 08:02 1 MG Glucose (Glucose 40% Gel) 15-30 GRAMS 15 GRAMS... UD PRN PO 02/02/18 03:00 03/04/18 02:59 Glucose (Glucose Chew Tab) 4-8 Tablets 4 Tabl... UD PRN PO 02/02/18 03:00 03/04/18 02:59 Dextrose (Dextrose 50% 50ML Syringe) 25-50ML 25ML FOR ... UD PRN IV 02/02/18 03:00 03/04/18 02:59 Glucagon (Glucagon Inj) 1 mg UD PRN IM 02/02/18 03:00 03/04/18 02:59 Carbohydrates (Carbohydrates For Hypoglycemia) 15-30 GRAMS 15 grams if BSG 54-69... UD PRN PO 02/02/18 03:00 03/04/18 02:59 Insulin Aspart (novoLOG ASPART) SLIDING SCALE G... MAYELINS PR 02/02/18 16:15 03/04/18 16:14
[2018-02-02] MEDS ORDERED: HYT/2 PO (16:09)
[2018-02-02] MEDS ORDERED: INSULIN ASPART 100 UNITS/ML 3 ML PEN SC SCH (16:15)
--- NOTE | 2018-02-02 16:15 | Discharge Instructions ---
Discharge Instructions Date of Service Feb 02, 2018. Admission Reason for Admission: recurrent atrial fibrillation (irregular heart rhythm) . Discharge Discharge Diagnosis / Problem: recurrent atrial fibrillation (irregular heart rhythm) Discharge Goals Goal(s): Decrease discomfort, Improve disease control Activity Recommendations Activity Limitations: resume your previous activity . Instructions / Follow-Up Instructions / Follow-Up APPOINTMENTS: FAMILY MEDICINE 02/08/2018 11:20 AM Oleg Campo DO (covering for Dr. Allison) Family Practice [facility] CARDIOLOGY 02/11/2018 9:00 AM Mery Crowe PA-C Cardiology, [facility] OTHER INSTRUCTIONS: Cardioversion (shocking the heart) by Dr. Blankenship was successful. Your heart rhythm is regular again. Continue your usual heart medications. Seek medical attention if you have: * temperature above 101 * chest pain or trouble breathing * abdominal pain, nausea, vomiting * diarrhea, dark stools or bloody stools * any unanswered questions or concerns Call 911 if symptoms are severe. Call if you have any questions or problems. My cell # is [phone]. You can also reach a [facility] hospitalist on duty at [facility] 24 hours a day by calling [phone]. Please take good care of yourself. Austin Bee . Current Hospital Diet Patient's current hospital diet: Diabetes Type 2 Diet Discharge Diet Recommended Diet: AHA Diet (Heart Healthy), Diabetes Type 2 Diet Procedures Procedures Performed: DC cardioversion Start time: 910 Stop time: 919 Pending Studies Studies pending at discharge: no Laboratory Results Hemoglobin A1c Test 02/02/18 06:53 Range/Units Estimated Average Glucose 140 mg/dl Hemoglobin A1c 6.5 H 4.5-5.6 % Medical Emergencies . Who to Call and When: Medical Emergencies: If at any time you feel your situation is an emergency, please call 911 immediately. . Non-Emergent Contact Non-Emergency issues call your: Primary Care Provider, [employer] . . "Provider Documentation" section prepared by Austin Bee. .
[2018-02-02] MEDS ORDERED: INSULIN DETEMIR FLEXPEN/FLEX TOUCH 100 UNITS/ML 3ML SC SCH (21:00)
--- NOTE | 2018-02-02 23:37 | Discharge Summary ---
Discharge Summary Date of Service Feb 02, 2018. Discharge Summary Admission Date: Feb 02, 2018 at 02:27 Discharge Date: Feb 02, 2018 Discharge Disposition: Home Principal Diagnosis: atrial fibrillation / flutter (paroxysmal) . Secondary Diagnoses/Problems: Chronic and Resolved Medical Problems: (1) AA (alcohol abuse) Permanent Comment: Last drink 1990 Status: Resolved (2) Cerebral aneurysm Permanent Comment: SAH Non-aneurysmal SAH ([place] 3, H&H, 1, WFNS 1). No f/u needed 2012 Status: Resolved (3) DM (diabetes mellitus) Status: Chronic (4) GERD (gastroesophageal reflux disease) Status: Chronic (5) Gout Status: Chronic (6) HTN (hypertension) Status: Chronic (7) Hyperlipemia Status: Chronic Surgical Problems: (1) H/O removal of cyst Permanent Comment: knee-bakers cyst Status: Resolved (2) History of inguinal hernia repair Status: Resolved (3) History of repair of anterior cruciate ligament of right knee Status: Resolved . Procedures: cardiac monitoring echo DC cardioversion . Consultations: Cardiology . Medication Reconciliation Continued Medications: Allopurinol (Zyloprim) 100 Mg Tab 200 MG PO DAILY Amlodipine (Norvasc) 10 Mg Tab 10 MG PO HS Atorvastatin (Lipitor) 40 Mg Tab 40 MG PO DAILY, TAB Clonidine Hcl (Catapres) 0.3 Mg Tab 0.3 MG PO BID Dabigatran Elexilate (Pradaxa) 150 Mg Cap 150 MG PO BID, #60 Furosemide (Furosemide) 40 Mg Tab 20 MG PO DAILY, #14 Gabapentin (Gabapentin) 100 Mg Cap 100 MG PO TID Hydrochlorothiazide (Hctz) 25 Mg Tab 12.5 MG PO DAILY, TAB Insulin Detemir (Levemir) 100 Units/Ml Inj 80 UNITS SC HS Lisinopril (Zestril) 40 Mg Tab 40 MG PO QAM, TAB Magnesium Oxide (Mag-Ox) 400 Mg Tab 800 MG PO BID, #20 Metformin Hcl (Glucophage) 1,000 Mg Tab 1000 MG PO BID Pantoprazole (Protonix) 40 Mg Tab 40 MG PO BID, #30 TAB Pioglitazone Hcl (Actos) 45 Mg Tab 45 MG PO DAILY, TAB Potassium Ext Rel (Klor-Con) 20 Meq Tabcr 20 MEQ PO DAILY Repaglinide (Prandin) 1 Mg Tab 1 MG PO DAILY, TAB Before the largest meal of the day Sotalol HCl (Sotalol HCl) 80 Mg Tab 80 MG PO BID for 30 Days, #60 TAB 5 Refills Sucralfate (Sucralfate) 1 Gm Tab 1 TAB PO ACHS for 30 Days, TAB 3 Refills Terazosin Hcl (Hytrin) 2 Mg Cap 2 MG PO HS, CAP Zolpidem Tartrate (Ambien) 10 Mg Tab 10 MG PO HS PRN for Sleep, TAB Admission Information HPI (per Admitting provider): This is a 67-year-old male with past medical history significant for hyperlipidemia, diabetes, history of subarachnoid hemorrhage, history of GERD, hypertension, paroxysmal atrial fibrillation, obstructive sleep apnea, morbid obesity, gout. Presents with rapid AFib. The patient says last time he was in the ER with rapid atrial fibrillation, atrial flutter, and it spontaneously converted back to sinus rhythm. He is on sotalol since 2016. He was doing okay until the past few months. The patient is on Pradaxa for anticoagulation. Most of the times when he is in AFib and atrial flutter, when he checks his blood pressure his monitor notifies him, but today he was lying on the bed when he heard his heart was beating irregular and fast and checked his pulse, it was irregular and maximum it went was 109 and he came to the ER. In the ER, he was given his home medications and waited for 2-3 hours to see if he spontaneously converts back, but it did not happen. Magnesium was 1.7 and it was also replaced.ER physician discussed with his child support specialist and he was advised to admit to hospital for possible cardioversion in a.m. if patient does not convert spontaneously meanwhile and not to give any IV medications at this time. Patient is currently resting comfortably and hemodynamically stable. No headaches, no dizziness, no blurred vision, no earache, no runny nose, no sore throat, no difficulty swallowing. No cough, no chest pain, no shortness of breath, no fever, no chills, no sweating, no nausea, no abdominal pain. He had a couple of episodes of blood in the stools couple of days ago probably from his hemorrhoids, but this is resolved now. Normal bladder movements. Has chronic lower extremity edema. . Physical Exam (per Admitting): GENERAL: Patient is morbidly obese, not in distress. VITAL SIGNS: Temperature 36.7, pulse 106, respiratory rate 18, blood pressure 136/84, oxygen 96% room air. HEENT: No pallor, no icterus. Pupils equal, round, reactive. NECK: No JVD, no neck masses, no carotid bruits. CARDIOVASCULAR: S1, S2 heard. Irregular rhythm, no murmur, no gallop. RESPIRATORY SYSTEM: Normal AP diameter. No accessory muscle use. No wheezing, no crackles. ABDOMEN: Soft, bowel sounds present. Nontender. No distention. CENTRAL NERVOUS SYSTEM: Cranial nerves II-XII grossly intact. Nonfocal. EXTREMITIES: Chronic lower extremity edema present. No erythema seen . Hospital Course RECURRENT ATRIAL FIB / FLUTTER Prior history of PAF. Presented to ED with atrial flutter. Serum magnesium slightly low at 1.7, but in persistent atrial flutter after correction. Serum potassium was normal. Cardiology consulted. Successfully cardioverted. Continue sotalol and dabigatran. EP referral anticipated. HYPERTENSION Continue HCTZ, sotalol, amlodipine, clonidine. DM TYPE 2 Hgb A1C 6.5. FBS 113. Discharge on usual regimen. VTE PROPHYLAXIS Dabigatran. DISPOSITION Discharge to home. Family Medicine follow-up with Dr. Allison. Cardiology follow-up with Dr. Blankenship. Total time spent on discharge = 25 min. This includes examination of the patient, discharge planning, medication reconciliation, and communication with other providers. . Discharge Instructions Discharge Instructions Date of Service Feb 02, 2018. Admission Reason for Admission: recurrent atrial fibrillation (irregular heart rhythm) . Discharge Discharge Diagnosis / Problem: recurrent atrial fibrillation (irregular heart rhythm) Discharge Goals Goal(s): Decrease discomfort, Improve disease control Activity Recommendations Activity Limitations: resume your previous activity . Instructions / Follow-Up Instructions / Follow-Up APPOINTMENTS: FAMILY MEDICINE 02/08/2018 11:20 AM Oleg Campo DO (covering for Dr. Allison) Family Practice [facility] CARDIOLOGY 02/11/2018 9:00 AM Mery Crowe PA-C Cardiology, [facility] OTHER INSTRUCTIONS: Cardioversion (shocking the heart) by Dr. Blankenship was successful. Your heart rhythm is regular again. Continue your usual heart medications. Seek medical attention if you have: * temperature above 101 * chest pain or trouble breathing * abdominal pain, nausea, vomiting * diarrhea, dark stools or bloody stools * any unanswered questions or concerns Call 911 if symptoms are severe. Call if you have any questions or problems. My cell # is [phone]. You can also reach a [facility] hospitalist on duty at [facility] 24 hours a day by calling [phone]. Please take good care of yourself. Austin Bee . Current Hospital Diet Patient's current hospital diet: Diabetes Type 2 Diet Discharge Diet Recommended Diet: AHA Diet (Heart Healthy), Diabetes Type 2 Diet Procedures Procedures Performed: DC cardioversion Start time: 910 Stop time: 919 Pending Studies Studies pending at discharge: no Laboratory Results Hemoglobin A1c Test 02/02/18 06:53 Range/Units Estimated Average Glucose 140 mg/dl Hemoglobin A1c 6.5 H 4.5-5.6 % Medical Emergencies . Who to Call and When: Medical Emergencies: If at any time you feel your situation is an emergency, please call 911 immediately. . Non-Emergent Contact Non-Emergency issues call your: Primary Care Provider, Junior Account Manager . . "Provider Documentation" section prepared by Austin Bee. ..
== END 2018-02-02 17:11 | disposition home or self-care (01) | DRG 310 ==
LOC: C.EDB 22:51 → C.2T 02-02 02:27 → ENRESERV 02-02 02:30
PROVIDERS: ADMIT Internal Medicine; ATTEND Hospitalist
PROC: 5A2204Z Restoration of Cardiac Rhythm, Single (ICD-10-PCS; principal; 2018-02-02)
DX: I48.0 Paroxysmal atrial fibrillation (principal); I48.92 Unspecified atrial flutter; F10.10 Alcohol abuse, uncomplicated; E11.9 Type 2 diabetes mellitus without complications; K21.9 Gastro-esophageal reflux disease without esophagitis; M10.9 Gout, unspecified; I10 Essential (primary) hypertension; E78.5 Hyperlipidemia, unspecified; Z83.3 Family history of diabetes mellitus; Z82.49 Family history of ischemic heart disease and other diseases of the circulatory system; G47.33 Obstructive sleep apnea (adult) (pediatric); E66.01 Morbid (severe) obesity due to excess calories

== ENCOUNTER 2023-12-02 10:37 | Inpatient (IN) ==
--- NOTE | 2023-12-02 11:10 | Emergency Department Note ---
Impression & Plan Syncope and collapse, Bleeding, Elevated lactic acid level ED Provider Note HISTORY OF PRESENT ILLNESS: Patient is a 73-year-old male presenting with presumed rectal bleeding. Patient reports he had a procedure at [facility] with Dr. Dias this morning. He does not remember the name of the procedure. He states that he was doing well and got home, but started having gross bright red blood trailed down his bilateral legs and it would not stop. was able to get him into the car and got into the emergency department. In the waiting room, the patient passed out prior to getting into triage. He states he is on Pradaxa but has not taken it in 48 hours. He denies any chest pain or shortness of breath. He is currently feeling lightheaded. ROS: as above PHYSICAL EXAM: Constitutional: Patient appears in no acute distress. HENT: Head: Normocephalic and atraumatic. Eyes: EOMI, PERRL Mouth/Throat: Mucous membranes moist. Neck: Trachea midline. Neck supple. Cardiovascular: RRR, No murmurs, rubs or gallops. Intact distal pulses. Pulmonary/Chest: No respiratory distress. Breath sounds clear and equal bilaterally. No wheezes or rales. Abdominal: Abdomen soft, no tenderness, rebound or guarding. Rectal: No appreciable bleeding from rectum. Noted to have 4 cm gaping incision to right medial gluteus just lateral to gluteal fold. Noted to have bleeding from this. Underlying hematoma appreciated. Musculoskeletal: No edema, tenderness or deformity noted. Skin: Warm and dry. No rash, erythema, pallor or cyanosis Psychiatric: Appropriate mood and affect for situation. Neurological: Alert and keenly responsive. CN II-XII grossly intact, moving all extremities equally and fully. MDM: - Vitals signs showed tachycardia. Patient brought back to ER resuscitation bay after being recovered from the waiting room. He is answering questions appropriately. He was cleaned up and noted to have bleeding from the incision of his right gluteus. No appreciable rectal bleeding. Incision on right buttock was covered with quick clot, gauze and tape. - History obtained via patient. History as above. - Chronic conditions affecting care: DM-2; HLD; HTN; gout; obesity; paroxysmal Afib - Differential diagnoses include, but are not limited to: hemorrhoidal bleeding; post-operative complication; diverticular bleed; anemia; dysrhythmia; ACS - Order placed for continuous cardiac monitoring. At this time, monitor showed rate of 85 bpm with normal sinus rhythm, per my interpretation. - External medical records reviewed. Progress note from [facility] dated 12/02/2023 was reviewed. Patient was noted to have a deep hematoma to the buttock and had an abscess to this area which required drainage. They drained 5 cc of fluid from the area. - EKG interpreted by myself showed normal sinus rhythm. Rate 100 bpm. QT 364. No acute ischemic changes. - Laboratory workup interpreted by myself showed normal WBC; stable hemoglobin (17.4); normal TP/INR; stable electrolytes; CKD (Cr 1.53); elevated lactate (4.9); normal lipase; normal troponin; normal procalcitonin - COVID negative - Type and screen obtained. - QuikClot was placed on patient's incision and bleeding slowed. - Discussed case with Katie Pearson PA-C with [facility] general surgery at 13:30. Plans to come see patient. - Repeat H&H showed hemoglobin down to 15.3 - Patient given 1L NS in ER and repeat lactate is improved. - CT head wo contrast negative for acute pathology. - CT pelvis with IV contrast showed mild skin thickening around right medial gluteal fold representing possible cellulitis. - Surgery re-packed patient's gluteal wound. - Orthostatic vitals were positive. Patient's syncope likely secondary to patient's significant blood loss. However, will admit for observation for further monitoring and further trending of H&H. - Discussion was had with hospice case manager about patient's case and need for admission - Hospitalist consulted for admission - Patient admitted to [facility] hospitalist service for further evaluation and management. ASSESSMENT AND PLAN: Diagnosis: syncope and collapse; elevated lactic acid level; bleeding Plan: admit Past Med/Surg History Problem List (Updated 12/02/23 @ 14:58 by Maranda Chairez MD) Elevated lactic acid level (Acute) Bleeding (Acute) Syncope and collapse (Acute) Encounter for pre-operative examination HTN (hypertension) (Chronic) DM (diabetes mellitus) (Chronic) Hyperlipemia (Chronic) Gout (Chronic) GERD (gastroesophageal reflux disease) (Chronic) Encounter for monitoring anti-arrhythmic therapy Atrial fibrillation Atrial fibrillation with rapid ventricular response Atrial flutter, paroxysmal (Chronic) Paroxysmal a-fib (Chronic) Medical History (Updated 12/02/23 @ 14:58 by Maranda Chairez MD) Morbid obesity Family History Other Family history non-contributory Social History (Updated 04/17/18 @ 05:01 by Genesis Patel PA-C) Smoking Status: Never smoker Do You Dip or Chew Tobacco: No; Hx Alcohol Use: No Hx Substance Use: No Preferred Language: Kuwaiti Beliefs That Will Affect Care: None Current Living Situation: Spouse Feels Safe at Home: Yes Assistive Devices: CPAP and Glasses Allergies Allergies Allergy/AdvReac Type Severity Reaction Status Date / Time simvastatin Allergy Intermediate myalgias Verified 12/02/23 13:10 sildenafil Allergy Unknown severe Verified 12/02/23 13:10 headache Home Meds Home Medications Medication Instructions Recorded Confirmed allopurinol 100 mg tablet 200 mg PO DAILY 03/18/18 04/28/18 clonidine HCl 0.3 mg tablet 0.3 mg PO BID 03/18/18 12/02/23 dabigatran etexilate 150 mg capsule 150 mg PO BID 03/18/18 12/02/23 gabapentin 100 mg capsule 100 mg PO TID 03/18/18 12/02/23 zolpidem 10 mg tablet 10 mg PO HS Sleep 03/18/18 12/02/23 terazosin 2 mg capsule 2 mg PO HS 04/28/18 12/02/23 allopurinol 300 mg tablet 300 mg PO QAM 12/02/23 12/02/23 cholecalciferol (vitamin D3) 50 50 mcg PO QAM 12/02/23 12/02/23 mcg (2,000 unit) capsule empagliflozin 10 mg tablet 10 mg PO QAM 12/02/23 12/02/23 (Jardiance) ergocalciferol (vitamin D2) 1,250 1,250 mcg PO WK 12/02/23 12/02/23 mcg (50,000 unit) capsule insulin glargine 100 unit/mL (3 75 unit subcut HS 12/02/23 12/02/23 mL) subcutaneous pen (Lantus Solostar U-100 Insulin) levothyroxine 75 mcg tablet 75 mcg PO QAM 12/02/23 12/02/23 liraglutide 0.6 mg/0.1 mL (18 mg/3 1.8 mg subcut QAM 12/02/23 12/02/23 mL) subcutaneous pen injector ([employer]toza 3-Jak) lisinopril 20 mg tablet 20 mg PO QAM 12/02/23 12/02/23 metoprolol succinate 100 mg 100 mg PO QAM 12/02/23 12/02/23 tablet,extended release 24 hr metoprolol succinate 25 mg 12.5 mg PO QPM 12/02/23 12/02/23 tablet,extended release 24 hr metoprolol succinate 50 mg 50 mg PO HS 12/02/23 12/02/23 tablet,extended release 24 hr spironolactone 25 mg tablet 12.5 mg PO QAM 12/02/23 12/02/23 Results & Data (ED) Vital Signs Vital Signs - 24 hr 12/02/23 10:49 12/02/23 11:10 12/02/23 11:10 Temperature Temperature Source Pulse Rate - Lying Pulse Rate - Sitting Pulse Rate - Standing Pulse Rate 99 H Pulse Rate [Apical] 91 H Pulse Rhythm Regular Pulse Strength Normal Respiratory Rate 18 20 Respiratory Effort / Characteristics Non-Labored Spontaneous Labored Non-Labored Respiratory Depth Normal Normal Respiratory Pattern Blood Pressure - Lying Blood Pressure - Sitting Blood Pressure- Standing Blood Pressure [Right Arm] 97/67 L Blood Pressure Mean [Right Arm] 77 Blood Pressure Position [Right Arm] Pulse Oximetry 92 92 93 Oxygen Delivery Method Room Air Room Air Room Air Sepsis Recent Fever Within 48 Hours No Sepsis New/Unexplained Change in Mental Status No Sepsis Action Taken by Nursing No Action Required 12/02/23 11:40 12/02/23 12:18 12/02/23 12:30 Temperature Temperature Source Pulse Rate - Lying Pulse Rate - Sitting Pulse Rate - Standing Pulse Rate 86 Pulse Rate [Apical] 85 85 Pulse Rhythm Pulse Strength Respiratory Rate 13 18 Respiratory Effort / Characteristics Non-Labored Spontaneous Non-Labored Spontaneous Respiratory Depth Normal Normal Respiratory Pattern Regular Blood Pressure - Lying Blood Pressure - Sitting Blood Pressure- Standing Blood Pressure [Right Arm] 115/75 135/93 Blood Pressure Mean [Right Arm] 88 107 Blood Pressure Position [Right Arm] Lying Pulse Oximetry 93 96 Oxygen Delivery Method Room Air Room Air Sepsis Recent Fever Within 48 Hours Sepsis New/Unexplained Change in Mental Status Sepsis Action Taken by Nursing 12/02/23 14:23 12/02/23 14:23 Temperature 36.6 C Temperature Source Oral Pulse Rate - Lying 84 Pulse Rate - Sitting 96 H Pulse Rate - Standing 103 H Pulse Rate Pulse Rate [Apical] 84 Pulse Rhythm Pulse Strength Respiratory Rate 18 Respiratory Effort / Characteristics Non-Labored Spontaneous Respiratory Depth Normal Respiratory Pattern Regular Blood Pressure - Lying 118/74 Blood Pressure - Sitting 143/97 H Blood Pressure- Standing 118/82 Blood Pressure [Right Arm] 118/74 Blood Pressure Mean [Right Arm] 88 Blood Pressure Position [Right Arm] Lying Pulse Oximetry 98 Oxygen Delivery Method Room Air Sepsis Recent Fever Within 48 Hours Sepsis New/Unexplained Change in Mental Status Sepsis Action Taken by Nursing Laboratory Data 12/02/23 12:50 12/02/23 10:58 Lab Results 12/02/23 12/02/23 12/02/23 Range/Units 10:58 11:12 11:32 WBC 11.66 H (4.8-10.8) K/ul RBC 5.74 (4.70-6.10) M/uL Hgb 17.4 (14.0-18.0) g/dl Hct 52.8 H (42.0-52.0) % MCV 92.0 (80.0-100.0) fL MCH 30.3 (25.0-34.0) pg MCHC 33.0 (32.0-36.0) g/dL RDW Std Deviation 50.5 H (36.4-46.3) fL RDW Coeff of Gabriela 15.1 H (11.5-14.5) % Plt Count 212 (130-400) K/uL MPV 9.7 (9.4-12.4) fL Immature Gran % (Auto) 1.6 % Neut % (Auto) 59.9 % Lymph % (Auto) 27.7 % Sandoval % (Auto) 8.6 % Eos % (Auto) 1.7 % Baso % (Auto) 0.5 % Neut # (Auto) 6.98 H (1.40-6.50) K/uL Lymph # (Auto) 3.23 (1.20-3.40) K/uL Sandoval # (Auto) 1.00 H (0.11-0.59) K/uL Eos # (Auto) 0.20 (0.00-0.50) K/uL Baso # (Auto) 0.06 (0.00-0.20) K/uL Immature Gran # (Auto) 0.19 (0.01-0.20) K/uL PT 11.6 (9.0-12.0) Seconds INR 1.1 (0.9-1.1) APTT 38 H (21-31) Seconds PTT Ratio 1.4 Sodium 142 (136-145) mmol/L Potassium 3.5 (3.5-5.1) mmol/L Chloride 105 (98-107) mmol/L Carbon Dioxide 27 (21-32) mmol/L Anion Gap 10 (3-11) BUN 24 H (6-23) mg/dl Creatinine 1.53 H (0.6-1.4) mg/dl Est Cr Clr Drug Dosing Not Reportable Est GFR ( Amer) 50.8 ml/min Est GFR (Non-Af Amer) 43.8 ml/min BUN/Creatinine Ratio 15.7 (10-20) Glucose 130 H (70-99(Fasting)) mg/dl Lactate 4.9 H* (0.4-2.0) mmol/L Calcium 9.6 (8.6-10.3) mg/dl Total Bilirubin 0.9 (0.2-1.0) mg/dl AST 22 (13-39) U/L ALT 21 (7-52) U/L Alkaline Phosphatase 69 (34-104) U/L Troponin I High Sens 16.4 (0-20) pg/ml Total Protein 7.3 (6.0-8.3) gm/dl Albumin 4.0 (3.4-5.0) gm/dl Globulin 3.3 (2.5-4.0) gm/dl Albumin/Globulin Ratio 1.2 (0.9-2) Lipase 12 (11-82) U/L Procalcitonin 0.04 (0-0.5) ng/ml POC Stool Occult Blood Positive A (Negative) SARS-CoV-2 (PCR) NEGATIVE (Negative) Blood Type A Positive Antibody Screen NEGATIVE 12/02/23 12/02/23 Range/Units 12:39 12:50 WBC (4.8-10.8) K/ul RBC (4.70-6.10) M/uL Hgb 15.3 (14.0-18.0) g/dl Hct 46.3 (42.0-52.0) % MCV (80.0-100.0) fL MCH (25.0-34.0) pg MCHC (32.0-36.0) g/dL RDW Std Deviation (36.4-46.3) fL RDW Coeff of Gabriela (11.5-14.5) % Plt Count (130-400) K/uL MPV (9.4-12.4) fL Immature Gran % (Auto) % Neut % (Auto) % Lymph % (Auto) % Sandoval % (Auto) % Eos % (Auto) % Baso % (Auto) % Neut # (Auto) (1.40-6.50) K/uL Lymph # (Auto) (1.20-3.40) K/uL Sandoval # (Auto) (0.11-0.59) K/uL Eos # (Auto) (0.00-0.50) K/uL Baso # (Auto) (0.00-0.20) K/uL Immature Gran # (Auto) (0.01-0.20) K/uL PT (9.0-12.0) Seconds INR (0.9-1.1) APTT (21-31) Seconds PTT Ratio Sodium (136-145) mmol/L Potassium (3.5-5.1) mmol/L Chloride (98-107) mmol/L Carbon Dioxide (21-32) mmol/L Anion Gap (3-11) BUN (6-23) mg/dl Creatinine (0.6-1.4) mg/dl Est Cr Clr Drug Dosing Est GFR ( Amer) ml/min Est GFR (Non-Af Amer) ml/min BUN/Creatinine Ratio (10-20) Glucose (70-99(Fasting)) mg/dl Lactate 2.0 (0.4-2.0) mmol/L Calcium (8.6-10.3) mg/dl Total Bilirubin (0.2-1.0) mg/dl AST (13-39) U/L ALT (7-52) U/L Alkaline Phosphatase (34-104) U/L Troponin I High Sens (0-20) pg/ml Total Protein (6.0-8.3) gm/dl Albumin (3.4-5.0) gm/dl Globulin (2.5-4.0) gm/dl Albumin/Globulin Ratio (0.9-2) Lipase (11-82) U/L Procalcitonin (0-0.5) ng/ml POC Stool Occult Blood (Negative) SARS-CoV-2 (PCR) (Negative) Blood Type Antibody Screen Administered Medications Discontinued Medications Sodium Chloride (Nss) 1,000 mls @ 999 mls/hr IV .[id number] ONE Stop: 12/02/23 12:15 Last Infusion: 12/02/23 12:36 Dose: Infused Documented By: Admin: 12/02/23 11:16 Dose: 999 mls/hr Documented By: BRENDA Ioversol (Optiray 320 100ml) 93 ml IV ONCE ONE Stop: 12/02/23 13:48 Last Admin: 12/02/23 13:48 Dose: 93 ml Documented By: MARYLOU Imaging Data Radiologist's Impression: Head CT 12/02/23 11:10 CT head/brain wo con CLINICAL HISTORY: fall from standing; on thinner Technique: Contiguous axial CT images of the head were acquired from the base of the skull to the vertex without intravenous contrast administration. Images were viewed in brain, subdural and bone windows. Automated dose lowering techniques and/or adjustment according to patient size were utilized for this exam. Comparison: Comparison is made to CT head 10/26/2013 Findings: There is a chronic appearing lacunar infarct in the left internal capsule. No intracranial hemorrhage. Imaged portions of the paranasal sinuses and mastoid air cells are clear. The orbits appear normal. There are no acute fractures of the calvaria or scalp swelling. Impression: No acute intracranial hemorrhage, no evidence of acute territorial infarction or other acute intracranial disease process. ACT 112: Negative or not required by law. Electronically signed by: Mahesh Aguilar M.D. 12/02/2023 11:[address] 12/02/23 13:12 CT pelvis w/IV con only HISTORY: 73 years-old Male recent procedure to right glute with active hemorr acute right gluteal pain with recent procedure COMPARISON: None TECHNIQUE: Multiple axial CT images of the pelvis were obtained with IV contrast. A dose lowering technique was used consistent with the principals of AYAN. FINDINGS: Atherosclerosis of the abdominal aorta. There is uniform ectasia of the infrarenal abdominal aorta measuring 2.8 cm. Partially imaged probable cysts of the right kidney. Colonic diverticulosis. No bowel obstruction or bowel wall thickening identified. No intrapelvic fluid collections. Left inguinal surgical clips. Small fat filled umbilical hernia with diastases of 2.7 cm. Unremarkable appearance of the bilateral gluteal and upper thigh musculature. Nonenlarged bilateral inguinal chain lymph nodes. There is mild nonspecific skin thickening within the right medial gluteal fold tissues. No drainable fluid collections. No perianal fistulas identified. No acute fracture or destructive bone lesion. Mild osteoarthritis of the hips. IMPRESSION: 1. Mild nonspecific skin thickening within the right medial gluteal fold may represent a mild cellulitis. No abscess or fistula. 2. No acute intrapelvic abnormality. 3. Colonic diverticulosis. ACT 112: Negative or not required by law. The above report was generated using voice recognition software. It may contain grammatical, syntax or spelling errors. Electronically signed by: Pancho Lozada M.D. 12/02/2023 2:23 PM Discharge Plan Visit Data Chief Complaint: Rectal Bleed Stated Complaint: BLEEDING AFTER PROCEDURE ED Provider: Maranda Chairez Discharge Problem: Syncope and collapse, Bleeding, Elevated lactic acid level Forms Stand Alone Forms: My [facility] [place] [employer] Prescriptions Prescriptions: No Action terazosin 2 mg Capsule 2 mg PO HS clonidine HCl 0.3 mg tablet 0.3 mg PO BID allopurinol 100 mg tablet 200 mg PO DAILY gabapentin 100 mg capsule 100 mg PO TID zolpidem 10 mg tablet 10 mg PO HS dabigatran etexilate 150 mg capsule 150 mg PO BID metoprolol succinate 50 mg tablet extended release 24 hr 50 mg PO HS lisinopril 20 mg tablet 20 mg PO QAM metoprolol succinate 100 mg tablet extended release 24 hr 100 mg PO QAM Rx Instructions: 100qam, 50mg spironolactone 25 mg tablet 12.5 mg PO QAM levothyroxine 75 mcg tablet 75 mcg PO QAM allopurinol 300 mg tablet 300 mg PO QAM metoprolol succinate 25 mg tablet extended release 24 hr 12.5 mg PO QPM ergocalciferol (vitamin D2) 1,250 mcg (50,000 unit) capsule 1,250 mcg PO WK Rx Instructions: insulin glargine [Lantus Solostar U-100 Insulin] 100 unit/mL (3 mL) insulin pen 75 unit SUBCUT HS cholecalciferol (vitamin D3) 50 mcg (2,000 unit) capsule 50 mcg PO QAM Victoza 3-Jak 0.6 mg/0.1 mL (18 mg/3 mL) pen injector 1.8 mg SUBCUT QAM Jardiance 10 mg tablet 10 mg PO QAM Referrals Referrals: Vishnu Allison MD [Primary Care Provider] -
[2023-12-02] MEDS: SODIUM CHLORIDE 0.9% 1,000 ML IV ONE (11:16)
[2023-12-02 11:24] LABS: Basophils # (auto) 0.06 K/uL (0.00-0.20); Basophils % (auto) 0.5 %; Eosinophils % (auto) 1.7 %; Hematocrit (blood only) 52.8 % (42.0-52.0); Hemoglobin 17.4 g/dl (14.0-18.0); Immature Granulocytes # (auto) 0.19 K/uL (0.01-0.20); Immature Granulocytes % (auto) 1.6 %; Lymphocytes # (auto) 3.23 K/uL (1.20-3.40); Lymphocytes % (auto) 27.7 %; Mean Corpuscular Hemoglobin 30.3 pg (25.0-34.0); Mean Platelet Volume 9.7 fL (9.4-12.4); Monocytes % (auto) 8.6 %; Neutrophils # (auto) 6.98 K/uL (1.40-6.50); Neutrophils % (auto) 59.9 %; Platelet Count 212 K/uL (130-400); RDW Coefficient of Variation 15.1 % (11.5-14.5); RDW Standard Deviation 50.5 fL (36.4-46.3); Red Blood Count 5.74 M/uL (4.70-6.10); White Blood Count 11.66 K/ul (4.8-10.8)
[2023-12-02 11:30] LABS: Alanine Aminotransferase 21 U/L (7-52); Albumin Globulin Ratio 1.2 (0.9-2); Alkaline Phosphatase 69 U/L (34-104); Anion Gap 10 (3-11); Aspartate Aminotransferase 22 U/L (13-39); BUN Creatinine Ratio 15.7 (10-20); Bilirubin,Total 0.9 mg/dl (0.2-1.0); Blood Urea Nitrogen 24 mg/dl (6-23); Calcium 9.6 mg/dl (8.6-10.3); Carbon Dioxide 27 mmol/L (21-32); Chloride 105 mmol/L (98-107); Est GFR (African American) 50.8 ml/min; Est GFR (Non-African American) 43.8 ml/min; Globulin 3.3 gm/dl (2.5-4.0); Glucose 130 mg/dl (70-99(Fasting)); Lipase 12 U/L (11-82); Potassium 3.5 mmol/L (3.5-5.1); Sodium 142 mmol/L (136-145); Total Protein 7.3 gm/dl (6.0-8.3)
[2023-12-02 11:35] LABS: Troponin I High Sensitivity 16.4 pg/ml (0-20)
[2023-12-02 11:40] LABS: INR 1.1 (0.9-1.1); Partial Thromboplastin Ratio 1.4; Partial Thromboplastin Time 38 Seconds (21-31); Prothrombin Time 11.6 Seconds (9.0-12.0)
--- NOTE | 2023-12-02 11:55 | CT Scan Report ---
CT head/brain wo con CLINICAL HISTORY: fall from standing; on thinner Technique: Contiguous axial CT images of the head were acquired from the base of the skull to the joe nan without intravenous contrast administration. Images were viewed in brain, subdural and [facility]. Automated dose lowering techniques and/or adjustment according to patient size were utilized for this exam. Comparison: Comparison is made to CT head 10/26/2013 Findings: There is a chronic appearing lacunar infarct in the left internal capsule. No intracranial hemorrhage . Imaged portions of the paranasal sinuses and mastoid air cells are clear. The orbits appear normal. There are no acute fractures of the calvaria or scalp swelling. Impression: No acute intracranial hemorrhage, no evidence of acute territorial infarction or other acute intracra nial disease process. ACT 112: Negative or not required by law. Electronically signed by: Mahesh Aguilar M.D. 12/02/2023 11:53 AM
[2023-12-02 13:13] LABS: Hematocrit (blood only) 46.3 % (42.0-52.0); Hemoglobin 15.3 g/dl (14.0-18.0)
[2023-12-02] MEDS: OPTIRAY 320 100ml IV ONE (13:48)
--- NOTE | 2023-12-02 14:24 | CT Scan Report ---
CT pelvis w/IV con only HISTORY: 73 years-old Male recent procedure to right glute with active hemorr acute right gluteal pa in with recent procedure COMPARISON: None TECHNIQUE: Multiple axial CT images of the pelvis were obtained with IV contrast. A dose lowering nitish hnique was used consistent with the principals of AYAN. FINDINGS: Atherosclerosis of the abdominal aorta. There is uniform ectasia of the infrarenal abdominal aorta me asuring 2.8 cm. Partially imaged probable cysts of the right kidney. Colonic diverticulosis. No bowel obstruction or bowel wall thickening identified. No intrapelvic fluid collections. Left inguinal carmenza gical clips. Small fat filled umbilical hernia with diastases of 2.7 cm. Unremarkable appearance of the bilateral gluteal and upper thigh musculature. Nonenlarged bilateral i nguinal chain lymph nodes. There is mild nonspecific skin thickening within the right medial gluteal fold tissues. No drainable fluid collections. No perianal fistulas identified. No acute fracture or d estructive bone lesion. Mild osteoarthritis of the hips. IMPRESSION: 1. Mild nonspecific skin thickening within the right medial gluteal fold may represent a mild celluli tis. No abscess or fistula. 2. No acute intrapelvic abnormality. 3. Colonic diverticulosis. ACT 112: Negative or not required by law. The above report was generated using voice recognition software. It may contain grammatical, syntax o r spelling errors. Electronically signed by: Pancho Lozada M.D. 12/02/2023 2:23 PM
--- NOTE | 2023-12-02 15:40 | Surgery Consultation ---
Date of Consultation December 02, 2023 Assessment & Plan (1) Elevated lactic acid level: (2) Bleeding: (3) Syncope and collapse: 3 year-old male on Pradaxa underwent I&D of bilateral buttock hematomas in clinic today under local anesthesia with DR. iNño. Presented to ED with bleeding and had syncopal episode in ED triage. CT of pelvis showing no signs of fluid collection or cellulitis. Exam with an open bleeding wound of the right buttock about 4 cm in length and 0.5 cm in depth. Bleeding is coming from wound edges. Left buttock with small 0.5 cm incision from I&D, no packing present and almost healed but there is venous bleeding from the wound as well. Would recommend admit to hospital for observation, pressure dressings to bilateral buttocks with reinforcement as needed (unfortunately area of wounds are hard to keep dressings intact), hold anticoagulation, monitor labs. May need to consider hemostatic dressing to wound if bleeding not controlled with pressure dressings. consider consulting wound care. If bleeding becomes uncontrollable or hgb drops may need to consider CTA. Discussed with Dr. Rodriguez who agrees with above. Supervising Physician Co-Signing Physician Notes I have seen and examined the patient personally and agree with the above assessment and plan. In brief this 73-year-old gentleman on Pradaxa who presented to the outside clinic with hematoma of his buttock. This was incised and drained. He is continued to bleed, passed out, and was seen in the emergency department. I removed his dressing and looked at the wound. He has continuous oozing of venous blood from the skin edge. I refashioned a pressure dressing and held pressure for 5 minutes. We will continue with the pressure dressing and observe. He will be admitted to the hospital to the medicine service. Repeat labs. We will continue to follow. History of Present Illness Reason for Consultation: bleeding from wound Requesting Physician: Maranda Carpenter MD Attending Physician: Black Ratliff MD History of Present Illness Mr. Harris is a 73 year-old male who underwent I&D under local anesthetic of bilateral buttocks at [facility] with Dr. Niño this morning and then presented to emergency department due to bleeding from both wounds. He unfortunately became lightheaded in triage and passed out. He said there was not a lot of bleeding during the procedure. He denies of any significant pain. Has been holding is Pradaxa for 2 days as directed for the procedure today. labs showed initial hemoglobin of 17 down to 15 and lactic acid was elevated at 4.9 down to 2.0 on repeat. He is afebrile, hemodynamically stable. CT of pelvis showed no abscess or fluid collection. Allergies Allergy/AdvReac Type Severity Reaction Status Date / Time simvastatin Allergy Intermediate myalgias Verified 12/02/23 13:10 sildenafil Allergy Unknown severe Verified 12/02/23 13:10 headache Home Medications Medication Instructions Recorded Confirmed Type clonidine HCl 0.3 mg tablet 0.3 mg PO BID 03/18/18 12/02/23 History dabigatran etexilate 150 mg capsule 150 mg PO BID 03/18/18 12/02/23 History gabapentin 100 mg capsule 100 mg PO DAILY 03/18/18 12/02/23 History zolpidem 10 mg tablet 10 mg PO HS Sleep 03/18/18 12/02/23 History terazosin 2 mg capsule 2 mg PO HS 04/28/18 12/02/23 History atorvastatin 40 mg PO DAILY 12/02/23 12/02/23 History cholecalciferol (vitamin D3) 50 50 mcg PO DAILY 12/02/23 12/02/23 History mcg (2,000 unit) capsule empagliflozin 10 mg tablet 10 mg PO QAM 12/02/23 12/02/23 History (Jardiance) ergocalciferol (vitamin D2) 1,250 1,250 mcg PO WK 12/02/23 12/02/23 History mcg (50,000 unit) capsule insulin glargine 100 unit/mL (3 75 unit subcut HS 12/02/23 12/02/23 History mL) subcutaneous pen (Lantus Solostar U-100 Insulin) levothyroxine 75 mcg tablet 75 mcg PO QAM 12/02/23 12/02/23 History liraglutide 0.6 mg/0.1 mL (18 mg/3 1.8 mg subcut QAM 12/02/23 12/02/23 History mL) subcutaneous pen injector (Victoza 3-Jak) lisinopril 20 mg tablet 20 mg PO QAM 12/02/23 12/02/23 History magnesium oxide 750 mg PO DAILY 12/02/23 12/02/23 History metformin 500 mg PO BID 12/02/23 12/02/23 History metoprolol succinate 100 mg 100 mg PO QAM 12/02/23 12/02/23 History tablet,extended release 24 hr metoprolol succinate 25 mg 12.5 mg PO QPM 12/02/23 12/02/23 History tablet,extended release 24 hr metoprolol succinate 50 mg 50 mg PO HS 12/02/23 12/02/23 History tablet,extended release 24 hr pantoprazole 40 mg tablet,delayed 40 mg PO BID 12/02/23 12/02/23 History release spironolactone 25 mg tablet 12.5 mg PO QAM 12/02/23 12/02/23 History torsemide 20 mg tablet 40 mg PO BID 12/02/23 12/02/23 History Patient History Medical History Morbid obesity Family History Other Family history non-contributory Social History Smoking Status: Never smoker Do You Dip or Chew Tobacco: No; Hx Alcohol Use: No Hx Substance Use: No Preferred Language: Bruneian Beliefs That Will Affect Care: None Current Living Situation: Spouse Feels Safe at Home: Yes Assistive Devices: CPAP and Glasses Physical Exam Constitutional: WD/WN, vitals as above + obese, cooperative and comfortable; no acute distress and not ill appearing Respiratory: normal respiratory effort; no respiratory distress, no labored breathing and no retractions Gastrointestinal (Abdomen): External examination of bilateral buttocks. There is a 4 cm open wound of the right medial buttocks with active venous bleeding. Upon examination of wound, wound is only about 0.5 cm in depth , bleeding is from the wound edges with saline flushes. No active arterial bleeding noticed. The left buttocks as a small incision 0.5 cm with venous bleeding and ecchymosis present. There is no induration. No purulence. Minimal tenderness to palpation. Skin: no rashes, warm and dry Psychiatric: Orientation: alert and oriented x 3 Results & Data Vital Signs (Past 12 Hours) Vital Signs Temp Pulse Pulse Resp BP Pulse Ox O2 Del Method 12/02/23 14:23 36.6 C 84 18 118/74 98 Room Air 12/02/23 12:30 85 18 135/93 96 Room Air 12/02/23 12:18 86 12/02/23 11:40 85 13 115/75 93 Room Air 12/02/23 11:10 93 Room Air 12/02/23 11:10 91 H 20 97/67 L 92 Room Air 12/02/23 10:49 99 H 18 92 Room Air Laboratory Results 12/02/23 12/02/23 12/02/23 Range/Units 12:50 12:39 11:32 WBC (4.8-10.8) K/ul RBC (4.70-6.10) M/uL Hgb 15.3 (14.0-18.0) g/dl Hct 46.3 (42.0-52.0) % MCV (80.0-100.0) fL MCH (25.0-34.0) pg MCHC (32.0-36.0) g/dL RDW Std Deviation (36.4-46.3) fL RDW Coeff of Gabriela (11.5-14.5) % Plt Count (130-400) K/uL MPV (9.4-12.4) fL Immature Gran % (Auto) % Neut % (Auto) % Lymph % (Auto) % Sanborn % (Auto) % Eos % (Auto) % Baso % (Auto) % Neut # (Auto) (1.40-6.50) K/uL Lymph # (Auto) (1.20-3.40) K/uL Sanborn # (Auto) (0.11-0.59) K/uL Eos # (Auto) (0.00-0.50) K/uL Baso # (Auto) (0.00-0.20) K/uL Immature Gran # (Auto) (0.01-0.20) K/uL PT (9.0-12.0) Seconds INR (0.9-1.1) APTT (21-31) Seconds PTT Ratio Sodium (136-145) mmol/L Potassium (3.5-5.1) mmol/L Chloride (98-107) mmol/L Carbon Dioxide (21-32) mmol/L Anion Gap (3-11) BUN (6-23) mg/dl Creatinine (0.6-1.4) mg/dl Est Cr Clr Drug Dosing Est GFR ( Amer) ml/min Est GFR (Non-Af Amer) ml/min BUN/Creatinine Ratio (10-20) Glucose (70-99(Fasting)) mg/dl Lactate 2.0 (0.4-2.0) mmol/L Calcium (8.6-10.3) mg/dl Total Bilirubin (0.2-1.0) mg/dl AST (13-39) U/L ALT (7-52) U/L Alkaline Phosphatase (34-104) U/L Troponin I High Sens (0-20) pg/ml Total Protein (6.0-8.3) gm/dl Albumin (3.4-5.0) gm/dl Globulin (2.5-4.0) gm/dl Albumin/Globulin Ratio (0.9-2) Lipase (11-82) U/L Procalcitonin (0-0.5) ng/ml POC Stool Occult Blood (Negative) SARS-CoV-2 (PCR) NEGATIVE (Negative) Blood Type Antibody Screen 12/02/23 12/02/23 Range/Units 11:12 10:58 WBC 11.66 H (4.8-10.8) K/ul RBC 5.74 (4.70-6.10) M/uL Hgb 17.4 (14.0-18.0) g/dl Hct 52.8 H (42.0-52.0) % MCV 92.0 (80.0-100.0) fL MCH 30.3 (25.0-34.0) pg MCHC 33.0 (32.0-36.0) g/dL RDW Std Deviation 50.5 H (36.4-46.3) fL RDW Coeff of Gabriela 15.1 H (11.5-14.5) % Plt Count 212 (130-400) K/uL MPV 9.7 (9.4-12.4) fL Immature Gran % (Auto) 1.6 % Neut % (Auto) 59.9 % Lymph % (Auto) 27.7 % Sanborn % (Auto) 8.6 % Eos % (Auto) 1.7 % Baso % (Auto) 0.5 % Neut # (Auto) 6.98 H (1.40-6.50) K/uL Lymph # (Auto) 3.23 (1.20-3.40) K/uL Sanborn # (Auto) 1.00 H (0.11-0.59) K/uL Eos # (Auto) 0.20 (0.00-0.50) K/uL Baso # (Auto) 0.06 (0.00-0.20) K/uL Immature Gran # (Auto) 0.19 (0.01-0.20) K/uL PT 11.6 (9.0-12.0) Seconds INR 1.1 (0.9-1.1) APTT 38 H (21-31) Seconds PTT Ratio 1.4 Sodium 142 (136-145) mmol/L Potassium 3.5 (3.5-5.1) mmol/L Chloride 105 (98-107) mmol/L Carbon Dioxide 27 (21-32) mmol/L Anion Gap 10 (3-11) BUN 24 H (6-23) mg/dl Creatinine 1.53 H (0.6-1.4) mg/dl Est Cr Clr Drug Dosing Not Reportable Est GFR ( Amer) 50.8 ml/min Est GFR (Non-Af Amer) 43.8 ml/min BUN/Creatinine Ratio 15.7 (10-20) Glucose 130 H (70-99(Fasting)) mg/dl Lactate 4.9 H* (0.4-2.0) mmol/L Calcium 9.6 (8.6-10.3) mg/dl Total Bilirubin 0.9 (0.2-1.0) mg/dl AST 22 (13-39) U/L ALT 21 (7-52) U/L Alkaline Phosphatase 69 (34-104) U/L Troponin I High Sens 16.4 (0-20) pg/ml Total Protein 7.3 (6.0-8.3) gm/dl Albumin 4.0 (3.4-5.0) gm/dl Globulin 3.3 (2.5-4.0) gm/dl Albumin/Globulin Ratio 1.2 (0.9-2) Lipase 12 (11-82) U/L Procalcitonin 0.04 (0-0.5) ng/ml POC Stool Occult Blood Positive A (Negative) SARS-CoV-2 (PCR) (Negative) Blood Type A Positive Antibody Screen NEGATIVE Diagnostic Findings CT pelvis w/IV con only HISTORY: 73 years-old Male recent procedure to right glute with active hemorr acute right gluteal pain with recent procedure COMPARISON: None TECHNIQUE: Multiple axial CT images of the pelvis were obtained with IV contrast. A dose lowering technique was used consistent with the principals of AYAN. FINDINGS: Atherosclerosis of the abdominal aorta. There is uniform ectasia of the infrarenal abdominal aorta measuring 2.8 cm. Partially imaged probable cysts of the right kidney. Colonic diverticulosis. No bowel obstruction or bowel wall thickening identified. No intrapelvic fluid collections. Left inguinal surgical clips. Small fat filled umbilical hernia with diastases of 2.7 cm. Unremarkable appearance of the bilateral gluteal and upper thigh musculature. Nonenlarged bilateral inguinal chain lymph nodes. There is mild nonspecific skin thickening within the right medial gluteal fold tissues. No drainable fluid collections. No perianal fistulas identified. No acute fracture or destructive bone lesion. Mild osteoarthritis of the hips. IMPRESSION: 1. Mild nonspecific skin thickening within the right medial gluteal fold may represent a mild cellulitis. No abscess or fistula. 2. No acute intrapelvic abnormality. 3. Colonic diverticulosis.
--- NOTE | 2023-12-02 15:57 | History & Physical Report ---
Date of Service December 02, 2023 Assessment & Plan (1) Bleeding from wound: (2) Syncope and collapse: (3) Elevated lactic acid level: (4) Cellulitis of gluteal region: Plan Renan Harris is a 73y/o M with PMHx of DM type II [on basal insulin], peripheral neuropathy, dyslipidemia, gout, idiopathic hypothyroidism, HTN, permanent atrial fibrillation, venous stasis dermatitis of both lower extremities, non-ischemic cardiomyopathy, morbid obesity, GERD without esophagitis, CKD stage III, history of alcohol dependence [in remission], KARUNA and other problems listed below who presented to the ED for evaluation of incessant bleeding from his buttock region s/p I&D of b/l buttock hematomas by Dr. Niño at [facility]. Bleeding from wound Syncope and collapse Hx of persistent afib on chronic anticoagulation -Hgb 17.4 --> 15.3 on admission -Hemodynamically stable on admission -CT pelvis negative for any acute intrapelvic abnormality -Head CT negative -H/H Q6H, trend Hgb -Continuous cardiac monitoring, pulse ox -Fall precautions -Orthostatic BPs QS -Last took dabigatran Thursday morning -Hold dabigatran -Transfuse as needed -Blood consent obtained -Wound care consulted -General surgery consulted -Continue w/ pressure dressings --> Consider hemostatic dressings if bleeding not controlled -Monitor dressing -BMP, CBC in AM -Per surgery --> May need CTA pelvis if Hgb continues to drop and unable to stop the bleeding Elevated lactic acid --> ? more than likely d/t acute episode of bleeding ? -Lactate 4.9 on admission -Repeat normalized --> 2.0 Cellulitis of R gluteal region --> CT pelvis showed some potential mild cellulitis in R gluteal region. -WBC 11.66, elevated lactate on admission -Will start IV cefazolin -Repeat CBC in AM Skin tears --> Sustained skin tears to b/l dorsal forearm regions during fall. 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 --> 75 units insulin glargine HS -Hold NURSING SECRETARY insulin, Victoza, metformin and Jardiance -SSI and basal regimen ordered -Glycemic pharmacy consulted -Appreciate further recommendations/input -BSG checks ACHS -Carb consistent, HH diet -Continue gabapentin Hypertension (HTN) Hx of non-ischemic cardiomyopathy -Hemodynamically stable on admission -Echo done 07/23/23 --> EF=55-59%, was previously 45-49% (improved) -Continue metoprolol succinate regimen, lisinopril, clonidine -Continue torsemide, spironolactone -Follows w/ [facility] -Monitor I&O's -Daily weights -EKG as needed w/ chest pain Other chronic medical conditions/problems: Hyperlipidemia, GERD w/out es ophagitis, insomnia, BPH and hypothyroidism --> Can continue NURSING SECRETARY medications while admitted. * Can also continue magnesium and vit D supplementation, will get mag/phos in AM. DVT Prophylaxis: SCDs Code Status: Full Code PCP: Vishnu Allison MD Dispo: Admit to Med/Surg w/ Telemetry Patient seen in collaboration with Dr. Ratliff. Please see addendum. I spent a total of 75 minutes coordinating, documenting, and providing care for this patient excluding time spent in the performance of separately billed services. This included personally reviewing all current laboratories and imaging studies, medical reconciliation, outpatient chart review and discussion with specialists. This chart was completed in part utilizing Speech Voice Recognition Software. Grammatical errors, random word insertions, pronoun errors, and incomplete sentences are an occasional consequence of this system due to software limitations, ambient noise, and hardware issues. Any formal questions or concerns about the content, text, or information contained within the body of this dictation should be directly addressed to the provider for clarification. History of Present Illness Chief Complaint: Bleeding s/p I&D procedure of buttock hematomas, syncope/collapse Primary Care Provider: Vishnu Allison MD Renan Harris is a 73y/o M with PMHx of DM type II [on basal insulin], peripheral neuropathy, dyslipidemia, gout, idiopathic hypothyroidism, HTN, permanent atrial fibrillation, venous stasis dermatitis of both lower extremities, non-ischemic cardiomyopathy, morbid obesity, GERD without esophagitis, CKD stage III, history of alcohol dependence [in remission], KARUNA on CPAP and other problems listed below who presented to the ED for evaluation of incessant bleeding from his buttock region s/p I&D of b/l buttock hematomas. History obtained from patient, at bedside and chart review. Patient underwent I&D of b/l buttock hematomas this morning with Dr. Niño at [facility]. Patient states the bleeding from the I&D site started s ometime between leaving [facility] and returning home. He has not been able to stop the bleeding and subsequently came to the ED with his . Patient did have an episode in the waiting room where he collapsed/passed out. Patient states that before collapsing he suddenly came lightheaded and his vision went dark. states he never became unresponsive, and mentions the episode lasted only around 3 to 4 seconds. He did fall forward and hit his face off of the ground. He remembers doing so. He sustained two skin tears from the fall, one on each dorsal forearm region. Patient currently denies any headache, lightheadedness/dizziness or visual changes. States those symptoms have resolved. Denies any chest pain or SOB. No palpitations. Does report a bruise on his right knee from the fall. Not currently having a lot of pain. Last took his Pradaxa Thursday morning. No changes in bowel or urinary habits, denies any hematuria or blood in stool. Allergies Allergy/AdvReac Type Severity Reaction Status Date / Time simvastatin Allergy Intermediate myalgias Verified 12/02/23 13:10 sildenafil Allergy Unknown severe Verified 12/02/23 13:10 headache Home Medications Medication Instructions Recorded Confirmed Type clonidine HCl 0.3 mg tablet 0.3 mg PO BID 03/18/18 12/02/23 History dabigatran etexilate 150 mg capsule 150 mg PO BID 03/18/18 12/02/23 History gabapentin 100 mg capsule 100 mg PO DAILY 03/18/18 12/02/23 History zolpidem 10 mg tablet 10 mg PO HS Sleep 03/18/18 12/02/23 History terazosin 2 mg capsule 2 mg PO HS 04/28/18 12/02/23 History atorvastatin 40 mg PO DAILY 12/02/23 12/02/23 History cholecalciferol (vitamin D3) 50 50 mcg PO DAILY 12/02/23 12/02/23 History mcg (2,000 unit) capsule empagliflozin 10 mg tablet 10 mg PO QAM 12/02/23 12/02/23 History (Jardiance) ergocalciferol (vitamin D2) 1,250 1,250 mcg PO WK 12/02/23 12/02/23 History mcg (50,000 unit) capsule insulin glargine 100 unit/mL (3 75 unit subcut HS 12/02/23 12/02/23 History mL) subcutaneous pen (Lantus Solostar U-100 Insulin) levothyroxine 75 mcg tablet 75 mcg PO QAM 12/02/23 12/02/23 History liraglutide 0.6 mg/0.1 mL (18 mg/3 1.8 mg subcut QAM 12/02/23 12/02/23 History mL) subcutaneous pen injector (Victoza 3-Jak) lisinopril 20 mg tablet 20 mg PO QAM 12/02/23 12/02/23 History magnesium oxide 750 mg PO DAILY 12/02/23 12/02/23 History metformin 500 mg PO BID 12/02/23 12/02/23 History metoprolol succinate 100 mg 100 mg PO QAM 12/02/23 12/02/23 History tablet,extended release 24 hr metoprolol succinate 25 mg 12.5 mg PO QPM 12/02/23 12/02/23 History tablet,extended release 24 hr metoprolol succinate 50 mg 50 mg PO HS 12/02/23 12/02/23 History tablet,extended release 24 hr pantoprazole 40 mg tablet,delayed 40 mg PO BID 12/02/23 12/02/23 History release spironolactone 25 mg tablet 12.5 mg PO QAM 12/02/23 12/02/23 History torsemide 20 mg tablet 40 mg PO BID 12/02/23 12/02/23 History Past Med/Surg History Problem List Hyperlipidemia HTN (hypertension) DM (diabetes mellitus) Cellulitis of gluteal region Bleeding from wound Elevated lactic acid level (Acute) Syncope and collapse (Acute) GERD (gastroesophageal reflux disease) (Chronic) Paroxysmal a-fib (Chronic) Medical History Atrial flutter, paroxysmal Atrial fibrillation with rapid ventricular response Atrial fibrillation AA (alcohol abuse) "Last drink 1990 " Gout Cerebral aneurysm "SAH Non-aneurysmal SAH ([place] 3, H&H, 1, WFNS 1). No f/u needed 2012" On 09/17/15 12:09 Jennifer Falcon wrote "SAH" BPH (benign prostatic hyperplasia) Morbid obesity Surgical History (Updated 12/02/23 @ 18:46 by Vaishali Parkinson PA-C) H/O removal of cyst "knee-bakers cyst" History of repair of anterior cruciate ligament of right knee History of inguinal hernia repair Family History Other Family history non-contributory Social History Smoking Status: Never smoker Do You Dip or Chew Tobacco: No; Hx Alcohol Use: No Hx Substance Use: No Preferred Language: Divehi Communication Ability: Effective Movie Extra Required: No Beliefs That Will Affect Care: None Current Living Situation: Spouse Other Information That Helps Us Care for You: No Feels Safe at Home: Yes Safety Concerns: Feels Safe At This Time Assistive Devices: None Review of Systems Review of Systems: At least ten systems reviewed and negative, except as noted in the HPI. Physical Exam Physical Exam: General Appearance: Vitals as above. Resting comfortably in bed, no acute distress. Conversing appropriately. Head: Normocephalic, atraumatic. Eyes: Normal inspection, PERRL, conjunctivae normal, anicteric sclerae ENT: External ear and nose normal, oropharynx normal Neck: Normal visual inspection, trachea midline, no thyromegaly Respiratory: Normal respiratory effort, lungs clear to auscultation, no wheeze, rales, rhonchi. No accessory muscle use. Cardiovascular: Regular rate, rhythm, no murmur, normal peripheral pulses, no BLE edema. Vessels: No JVD. Chest: Normal inspection of chest. Abdomen/GI: Normal bowel sounds, soft, nontender, no hepatosplenomegaly. Extremities/Musculoskeletal: No cyanosis or clubbing, extremities motor strength 5/5. Neurologic: PERRL, EOMI, accommodation nl, no face palsy, no dysarthria, CN's II-XI not formally tested but appear grossly intact bilaterally. Moves all extremities w/o issue. Psychiatric: A+Ox3, euthymic affect. Skin: Chronic venous status changes of b/l LE, multiple calluses on both feet. Bandaging intact over buttock wounds, no blood is seeping through. Bandaging present on both forearms, skin tears from fall. Multiple firm, raised yellowish waxy-appearing lesions on b/l LE. Results & Data Results & Data Vital Signs (Past 12 Hours) Vital Signs Temp Pulse Pulse Resp BP Pulse Ox O2 Del Method 12/02/23 14:23 36.6 C 84 18 118/74 98 Room Air 12/02/23 12:30 85 18 135/93 96 Room Air 12/02/23 12:18 86 12/02/23 11:40 85 13 115/75 93 Room Air 12/02/23 11:10 93 Room Air 12/02/23 11:10 91 H 20 97/67 L 92 Room Air 12/02/23 10:49 99 H 18 92 Room Air Laboratory Results Short CBC 12/02/23 12/02/23 Range/Units 10:58 12:50 WBC 11.66 H (4.8-10.8) K/ul Hgb 17.4 15.3 (14.0-18.0) g/dl Hct 52.8 H 46.3 (42.0-52.0) % Plt Count 212 (130-400) K/uL BMP 12/02/23 10:58 Sodium 142 Potassium 3.5 Chloride 105 Carbon Dioxide 27 BUN 24 H Creatinine 1.53 H Glucose 130 H Calcium 9.6 Liver Function 12/02/23 Range/Units 10:58 Total Bilirubin 0.9 (0.2-1.0) mg/dl AST 22 (13-39) U/L ALT 21 (7-52) U/L Alkaline Phosphatase 69 (34-104) U/L Albumin 4.0 (3.4-5.0) gm/dl Diagnostic Findings Head CT 12/02/23 11:10 CT head/brain wo con CLINICAL HISTORY: fall from standing; on thinner Technique: Contiguous axial CT images of the head were acquired from the base of the skull to the vertex without intravenous contrast administration. Images were viewed in brain, subdural and bone windows. Automated dose lowering techniques and/or adjustment according to patient size were utilized for this exam. Comparison: Comparison is made to CT head 10/26/2013 Findings: There is a chronic appearing lacunar infarct in the left internal capsule. No intracranial hemorrhage. Imaged portions of the paranasal sinuses and mastoid air cells are clear. The orbits appear normal. There are no acute fractures of the calvaria or scalp swelling. Impression: No acute intracranial hemorrhage, no evidence of acute territorial infarction or other acute intracranial disease process. ACT 112: Negative or not required by law. Electronically signed by: Mahesh Aguilar M.D. 12/02/2023 11:[address] 12/02/23 13:12 CT pelvis w/IV con only HISTORY: 73 years-old Male recent procedure to right glute with active hemorr acute right gluteal pain with recent procedure COMPARISON: None TECHNIQUE: Multiple axial CT images of the pelvis were obtained with IV contrast. A dose lowering technique was used consistent with the principals of AYAN. FINDINGS: Atherosclerosis of the abdominal aorta. There is uniform ectasia of the infrarenal abdominal aorta measuring 2.8 cm. Partially imaged probable cysts of the right kidney. Colonic diverticulosis. No bowel obstruction or bowel wall thickening identified. No intrapelvic fluid collections. Left inguinal surgical clips. Small fat filled umbilical hernia with diastases of 2.7 cm. Unremarkable appearance of the bilateral gluteal and upper thigh musculature. Nonenlarged bilateral inguinal chain lymph nodes. There is mild nonspecific skin thickening within the right medial gluteal fold tissues. No drainable fluid collections. No perianal fistulas identified. No acute fracture or destructive bone lesion. Mild osteoarthritis of the hips. IMPRESSION: 1. Mild nonspecific skin thickening within the right medial gluteal fold may represent a mild cellulitis. No abscess or fistula. 2. No acute intrapelvic abnormality. 3. Colonic diverticulosis. ACT 112: Negative or not required by law. The above report was generated using voice recognition software. It may contain grammatical, syntax or spelling errors. Electronically signed by: Pancho Lozada M.D. 12/02/2023 2:23 PM Medications Administered Discontinued Medications Sodium Chloride (Nss) 1,000 mls @ 999 mls/hr IV .Q1H1M ONE Stop: 12/02/23 12:15 Last Infusion: 12/02/23 12:36 Dose: Infused Documented By: Admin: 12/02/23 11:16 Dose: 999 mls/hr Documented By: Ioversol (Optiray 320 100ml) 93 ml IV ONCE ONE Stop: 12/02/23 13:48 Last Admin: 12/02/23 13:48 Dose: 93 ml Documented By: MARYLOU ECG Additional Comments: EKG revealed sinus rhythm with first-degree AV block and PACs, HR 100bpm, poor R wave progression and QTc Int 469ms. Code Status & VTE Plan Code Status FULL CODE VTE Prophylaxis Plan VTE Prophylaxis will be ordered: Yes Supervising Physician Co-Signing Physician Notes 73-year-old with PMH of T2DM, HLD, CAD, idiopathic hypothyroidism, HTN, permanent A-fib, venous stasis dermatitis of BLE, nonischemic CM, morbid obesity, GERD, CKD stage III, alcohol dependence/in remission who had I&D of bilateral buttock hematoma today presented to the ED for evaluation of continued bleeding from the I&D site. Bleeding from wound: Status post I&D of bilateral buttock hematoma. Monitor H&H every 6 hours. Blood transfusion consent obtained, transfuse for hemoglobin less than 10 w/ active bleeding or for symptomatic anemia.General surgery consult, recommends CTA pelvis if hemoglobin continues to drop and unable to stop the bleeding. General surgery applied pressure dressing. WOCN consult. Hold blood thinner - last dose of dabigatran Thursday, SCDs only for dvt px. Syncope and collapse: Brief LOC while waiting at ED triage area, troponin negative, EKG with first-degree AV block. Orthostatic vitals positive. Telemetry monitoring, Zio patch monitor as an outpatient if no arrhythmia detected on lunchroom monitor. Concern cellulitis of right gluteal region on CT pelvis, IV antibiotic, transition to p.o. in next few days. On examination: GENERAL: Alert and oriented x3. NAD, on RA. HEENT: No pallor, no icterus. Pupils equal, round and reactive to light. Oral mucosa moist. NECK: No JVD, no neck masses. HEART: S1 and S2 heard. Regular rate and rhythm. No murmur, no gallop. RESPIRATORY SYSTEM: Normal AP diameter. No accessory muscle use. No wheezing, no crackles. ABDOMEN: Soft, bowel sounds present, nontender, no distention. CENTRAL NERVOUS SYSTEM: No facial droop. Speech is clear. Obeys simple commands. Moves extremities. EXTREMITIES: No edema, ble chronic venous stasis changes noted. gluteal pressure dressing noted. I have seen and examined the patient and have discussed the case with the provider above. I agree with the assessment and plan as stated.
[2023-12-02] MEDS: SILVER NITR/POTASSIUM NITRATE APPLICATOR ONE (17:25)
--- NOTE | 2023-12-02 17:42 | Electrocardiogram Report ---
Test Reason : Blood Pressure : / mmHG Vent. Rate : 100 BPM Atrial Rate : 258 BPM P-R Int : 000 ms QRS Dur : 098 ms QT Int : 364 ms P-R-T Axes : 000 014 083 degrees QTc Int : 469 ms Sinus rhythm with 1st degree AV block and PACs Poor R wave progression, consider anterior PR vs. lead placement vs. LVH Cannot rule out Inferior infarct , age undetermined Abnormal ECG When compared with ECG of 28-APR-2018 08:28, Nonspecific T wave abnormality no longer evident in Inferior leads Nonspecific T wave abnormality, improved in Lateral leads Confirmed by Moisés Condon ([id number]) on 12/02/2023 5:42:04 PM Referred By: Confirmed By:Marciano Condon
[2023-12-02] MEDS ORDERED: ALUMINUM/MAGNESIUM SUSP 30 ML UDC PO PRN (19:05)
[2023-12-02] MEDS ORDERED: GLUCOSE 10 TAB/TUBE PO PRN (19:05)
[2023-12-02] MEDS ORDERED: DEXTROSE 50% 50 ML SYRINGE IV PRN (19:05)
[2023-12-02] MEDS ORDERED: MAGNESIUM HYDROXIDE SUSP 30 ML UDC PO PRN (19:05)
[2023-12-02] MEDS ORDERED: ONDANSETRON INJ 2 MG/ML 2 ML VIAL IV PRN (19:05)
[2023-12-02] MEDS ORDERED: GLUCOSE 40% GEL 15 GM TUBE PO PRN (19:05)
[2023-12-02] MEDS ORDERED: PHARMACY GLYCEMIC MGMT CONSULT PRN (19:05)
[2023-12-02] MEDS ORDERED: GLUCAGON FOR INJ 1 MG VIAL SQ PRN (19:05)
[2023-12-02] MEDS ORDERED: CARBOHYDRATES FOR HYPOGLYCEMIA PO PRN (19:05)
[2023-12-02] MEDS ORDERED: POLYETHYLENE (MIRALAX) 17 GM PACK PO PRN (19:05)
[2023-12-02] MEDS ORDERED: ACETAMINOPHEN 325 MG TAB PO PRN (19:05)
[2023-12-02] MEDS: ceFAZolin 1000MG 1,000 MG/7.5 ML SYR IV SCH (20:33)
[2023-12-02] MEDS: TORSEMIDE 20 MG TAB PO SCH (20:49)
[2023-12-02] MEDS: PANTOprazole 40 MG TAB PO SCH (20:49)
[2023-12-02] MEDS: TERAZOSIN HCL 1 MG CAP PO SCH (20:50)
[2023-12-02] MEDS: METOPROLOL SUCC 50MG EXT REL TAB PO SCH (20:50)
[2023-12-02 20:51] LABS: Hematocrit (blood only) 45.1 % (42.0-52.0); Hemoglobin 15.3 g/dl (14.0-18.0)
[2023-12-02] MEDS: METOPROLOL SUCC 25MG EXT REL TAB PO SCH (20:51)
[2023-12-02] MEDS: cloNIDine HCL 0.3 MG TAB PO SCH (20:52)
[2023-12-02] MEDS: ZOLPIDEM TARTRATE 5 MG TAB PO SCH (22:34)
[2023-12-02] MEDS: INSULIN ASPART PER UNIT CHARGE SC SCH (22:51)
[2023-12-02] MEDS: LANTUS PER UNIT CHARGE SQ SCH (22:54)
[2023-12-03 01:22] LABS: Hematocrit (blood only) 44.4 % (42.0-52.0); Hemoglobin 14.9 g/dl (14.0-18.0)
[2023-12-03] MEDS: LEVOTHYROXINE SODIUM 75 MCG TABLET PO SCH (06:04)
[2023-12-03 07:28] LABS: Hemoglobin 14.3 g/dl (14.0-18.0); Mean Corpuscular Hemoglobin 30.8 pg (25.0-34.0); Mean Corpuscular Hgb Conc 33.3 g/dL (32.0-36.0); Mean Corpuscular Volume 92.5 fL (80.0-100.0); Mean Platelet Volume 9.7 fL (9.4-12.4); Platelet Count 152 K/uL (130-400); RDW Coefficient of Variation 15.2 % (11.5-14.5); RDW Standard Deviation 51.3 fL (36.4-46.3); Red Blood Count 4.65 M/uL (4.70-6.10); White Blood Count 10.02 K/ul (4.8-10.8)
[2023-12-03 07:37] LABS: Estimated Average Glucose 151 mg/dl; Hemoglobin A1C 6.9 % (4.5-5.6)
[2023-12-03 07:45] LABS: BUN Creatinine Ratio 17.9 (10-20); Calcium 8.9 mg/dl (8.6-10.3); Creatinine Clr Calc Pharmacy 67.7 ml/min; Est GFR (African American) 66.1 ml/min; Est GFR (Non-African American) 57.1 ml/min; Magnesium 1.9 mg/dl (1.7-2.4); Phosphorus 3.1 mg/dl (2.5-4.9); Potassium 3.6 mmol/L (3.5-5.1)
[2023-12-03] MEDS: METOPROLOL SUCC 50MG EXT REL TAB PO SCH (08:16)
[2023-12-03] MEDS: ERGOCALCIFEROL 1250 MCG (50,000 UNITS) CAP PO ONE (08:16)
[2023-12-03] MEDS: ATORVASTATIN 40 MG TAB PO SCH (08:17)
[2023-12-03] MEDS: GABAPENTIN 100 MG CAP PO SCH (08:17)
[2023-12-03] MEDS: lisinopril 20 MG TAB PO SCH (08:17)
[2023-12-03] MEDS: MAGNESIUM OXIDE 400 MG TAB PO SCH (08:17)
[2023-12-03] MEDS: SPIRONOLACTONE 12.5 MG TAB PO SCH (08:17)
[2023-12-03] MEDS: CHOLECALCIFEROL 25 MCG (1000 UNITS) TAB PO SCH (08:18)
--- NOTE | 2023-12-03 10:40 | Pharmacy Report ---
Pharmacy Glycemic Short Note 2 - Date of Service December 03, 2023 - Glycemic Short BSG Results (Last 24 hours): 12/02/23 12/02/23 12/03/23 10:58 22:50 06:57 Glucose 130 H 108 H POC Glucose 121 H 12/03/23 08:07 Glucose POC Glucose 102 H OUTPATIENT ANTIDIABETIC REGIMEN: * Lantus 75 units SC HS * Victoza 1. ASSESSMENT: * 73 y/o M admitted for cellulitis and hematomas on b/l buttocks. He has history of Type 2 diabetes managed on basal insulin, Jardiance and SC Victoza at home. * Last night, the home basal dose was reduced slightly and split up into BID doses. Patient received 35 units last night and this AM. * Today, Lantus BID dose reduced slightly again starting at HS to prevent fasting BSG from trending down further. * Novolog parameters based on stress of 2 started last night. Continued the same today. PLAN FOR INPATIENT GLYCEMIC CONTROL: * Hold outpatient oral diabetes medications * Basal insulin * Lantus 30 units SQ BID * Bolus insulin * NovoLog per scale ACHS or Q6hrs while NPO * Goal Range: Low 110 mg/dL - High 140 mg/dL * Correction Factor: 20 mg/dL/unit * Nutritional / Prandial insulin per carb ratio of 1 unit per 7 grams CHO consumed
--- OUTSIDE RECORDS SUMMARY | 2023-12-03 10:48 | External Medical Summary | Summary of Care ---
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 * Evaluate & Treat - Unlimited Visits (Within 10 days (routine)) - Pending Review Specialty Diagnoses / Procedures Referred By Lori norton Referred To Contact General Surgery Diagnoses AVM (arteriovenous malformation) Skin infection Tesfaye Solitario MD [address] [place] [id number] Referral ID Status Reason Start Date Expiration Date Visits Requested Visits Authorized [id number] Pending Review Specialty Services Required 11/20/[phone] Encounter Details Date Type Department Care Team (Late st Contact Info) Description 11/25/2023 9:15 AM EDT Office Visit General Surgery, [facility] [address] [place] [id number] David Niño MD [address] [place] [id number] Subcutaneous hematoma* Allergies Active Allergy Reactions Criticality Noted Date Comments Amiodarone Rash 10/08/2018 Sildenafil Citrate 06/20/2014 Severe SPAULDING, flushed feeling Simvastatin 12/05/2005 Myalgias arthralgias documented as of this encounter (statuses as of 11/25/2023) Medications Medication Sig Dispensed Refills Start Date End Date Status Insulin Syringe-Needle U-100 (BD INSULIN SYRINGE ULTRAFINE) 30G X 1/2" 1 ML MISC USE DIRECTED 1 Box Dosing Unit 5 7 Active Magnesium Oxide 400 MG TabletIndications: Paroxysmal atrial fibrillation (HCC) Take 750 mg by mouth daily. 180 Tab 1 8 Active Insulin Syringe-Needle U-100 (RELION INSULIN SYRINGE) 31G X 5/16" 1 ML MISCIndications:Ty pe 2 diabetes mellitus with hemoglobin A1c goal of less than 8.0% (HCC) Use daily with insulin. E11.9 100 Box Dosing Unit 3 9 Active diphenhydrAMINE HCl (BENADRYL ITCH STOPPING) 2 % GELIndications:Gael matitis due to drug reaction Apply topically to affected area 2 times a day as needed for Itching. Apply to arms. 1 Tube 1 9 Active SURGICAL COMPRESSION STOCKING Dispense velcro tightening compression wraps for knee to ankle. Please fit to patient. 2 Each 2 9 Active SUMAtriptan (IMITREX) 50 MG TabletIndications: Migraine variant Take 2 tablets at onset of migraine and one tablet every 2 hours as needed, not more than 4 tablets in 24 hours 12 Tab 5 0 Active Blood Glucose Monitoring Suppl (ACCU-CHEK JASKARAN PLUS) w/Device KIT TEST BLOOD SUGAR EVERY DAY 1 Kit 0 Active Glucose Blood (ACCU-CHEK JASKARAN PLUS) STRP Ck FS daily E 11.9 100 Strip 3 0 Active Prodigy Twist Top Lancets 28G CHECK FINGERSTICK BLOOD SUGAR THREE TIMES DAILY BEFORE MEALS 300 Each 3 0 Active Hydrocortisone Acetate 25 MG Rectal Suppository (Anusol-HC) Administer into the rectum 2 times a day in the morning and at bedtime as needed for Hemorrhoids. Up to 2 weeks. 24 Suppository 1 1 Active Additional Information Patient not taking.Reported on 08/18/2023 Triamcinolone Acetonide 0.1 % External Cream (Aristocort) APPLY CREAM EXTERNALLY TO AFFECTED AREA TWICE DAILY TO LEGS 80 g 1 Active Additional Information Patient not taking.Reported on 08/05/2023 Nystatin-Triamcino lone 161168-4.1 UNIT/GM-% External Cream (Mycolog)Indicatio ns:Cutaneous candidiasis APPLY CREAM TOPICALLY TO AFFECTED AREA TWICE DAILY FOR 2 WEEKS 60 g 2 1 Active Additional Information Patient not taking.Reported on 08/18/2023 Sucralfate 1 GM Oral Tablet (Carafate)Indicati ons:Dyspepsia,Ayaz roesophageal reflux disease with esophagitis TAKE 1 TABLET BY MOUTH 4 TIMES DAILY 30 MINUTES BEFORE MEALS AND AT BEDTIME 360 Tablet 1 1 Active Fluticasone Propionate 50 MCG/ACT Nasal SuspensionIndicati ons:Chronic rhinitis,Dysfuncti on of left eustachian tube Administer into each nostril 2 Sprays in the morning. 18 mL 11 2 Active Atorvastatin Calcium 40 MG Oral Tablet (Lipitor) Take 1 tablet by mouth once daily 90 Tablet 1 2 Active metFORMIN HCl 500 MG Oral Tablet (Glucophage) TAKE 1 TABLET BY MOUTH TWICE DAILY WITH MORNING MEAL AND WITH EVENING MEAL 180 Tablet 2 Active Gabapentin 100 MG Oral Capsule (Neurontin)Indicat ions:DM type 2 with diabetic peripheral neuropathy (HCC) TAKE 1 CAPSULE BY MOUTH THREE TIMES DAILY 270 Capsule 3 3 Active Lisinopril 20 MG Oral Tablet (Prinivil) Take 1 tablet by mouth once daily 90 Tablet 3 3 Active Additional Information Patient taking differently: Takes in evening, Reported on 08/18/2023 Jardiance 10 MG Oral Tablet (Empagliflozin) Take 1 tablet by mouth once daily 90 Tablet 3 3 Active Terazosin HCl 2 MG Oral CapsuleIndications :Paroxysmal atrial fibrillation (HCC),Atrial flutter (HCC),HTN, goal below 140/90 Take 1 capsule by mouth once daily at bedtime 90 Capsule 3 3 Active cloNIDine HCl 0.3 MG Oral TabletIndications: HTN, goal below 140/90,Essential hypertension, benign Take 1 tablet by mouth twice daily 180 Tablet 3 3 Active Additional Information Patient taking differently: Takes at 1200 at in evening, Reported on 08/18/2023 Dabigatran Etexilate Mesylate 150 MG Oral Capsule (Pradaxa)Indicatio ns:Paroxysmal atrial fibrillation (HCC) Take 1 capsule by mouth twice daily 180 Capsule 1 3 Active Victoza 18 MG/3ML Subcutaneous Solution Pen-injector (Liraglutide)Indic ations:Type 2 diabetes mellitus with hemoglobin A1c goal of less than 8.0% (HCC) INJECT 1.8 MG SUBCUTANEOUSLY ONCE DAILY 9 mL 3 3 Active Levothyroxine Sodium 75 MCG Oral Tablet (Levoxyl)Indicatio ns:Hypothyroidism, unspecified type TAKE 1 TABLET BY MOUTH IN THE MORNING (AT LEAST 30 MINUTES PRIOR TO BREAKFAST OR OTHER MEDS) 90 Tablet 3 4 Active Metoprolol Succinate ER 25 MG Oral Tablet Extended Release 24 Hour (toPROL XL)Indications:HTN , goal below 140/90,Permanent atrial fibrillation (HCC) Take 0.5 Tablets by mouth every evening. 90 Tablet 3 4 Active Metoprolol Succinate ER 100 MG Oral Tablet Extended Release 24 Hour (toPROL XL) TAKE 1 TABLET BY MOUTH ONCE DAILY IN THE MORNING 90 Tablet 3 4 Active Metoprolol Succinate ER 50 MG Oral Tablet Extended Release 24 Hour (toPROL XL) TAKE 1 TABLET BY MOUTH ONCE DAILY IN THE EVENING 90 Tablet 3 4 Active Vitamin D 50 MCG (2000 UT) Oral CapsuleIndications :Vitamin D deficiency Take 2,000 Units by mouth in the morning. 90 Capsule 4 Active Torsemide 20 MG Oral Tablet (Demadex)Indicatio ns:HTN, goal below 140/90,Permanent atrial fibrillation (HCC) Take 2 tablets by mouth twice daily 360 Tablet 3 4 Active Zolpidem Tartrate 10 MG Oral Tablet (Ambien) TAKE 1 TABLET BY MOUTH ONCE DAILY AT BEDTIME NEEDED FOR SLEEP 30 Tablet 5 4 Active Pantoprazole Sodium 40 MG Oral Tablet Delayed Release (Protonix) TAKE 1 TABLET BY MOUTH TWICE DAILY . DO NOT CUT, CRUSH OR CHEW 180 Tablet 2 4 Active Insulin Glargine Solostar 100 UNIT/ML Subcutaneous Solution Pen-injectorIndica tions:Type 2 diabetes mellitus with hemoglobin A1c goal of less than 8.0% (HCC) Inject 75 Units under the skin every night at bedtime. E11.9 60 mL 5 4 Active Zoster Vac Recomb Adjuvanted 50 MCG/0.5ML Intramuscular Suspension Reconstituted (Shingrix)Indicati ons:Need for vaccination for zoster Inject 0.5 mL into a large muscle now and repeat dose in 60 to 180 days 1 Each 1 4 Active Allopurinol 300 MG Oral Tablet (Zyloprim)Indicati ons:Chronic gout without tophus, unspecified cause, unspecified site Take 1 Tablet by mouth in the morning. 30 Tablet 1 4 Active Vitamin D (Ergocalciferol) 1.25 MG (81543 UT) Oral Capsule (Drisdol) Take 1 Capsule by mouth once a week. 6 Capsule 4 Active Spironolactone 25 MG Oral Tablet (Aldactone)Indicat ions:HTN, goal below 140/90 TAKE 1/2 (ONE-HALF) TABLET BY MOUTH IN THE MORNING 45 Tablet 3 4 Active Cephalexin 500 MG Oral Capsule (Keflex) Take 1 Capsule by mouth in the morning and 1 Capsule before bedtime. Do all this for 10 days. 20 Capsule 4 11/30/19 24 Active documented as of this encounter (statuses as of 11/25/2023) Active Problems Problem Noted Date Diagnosed Date Dyslipidemia, goal LDL below 70 01/20/2023 Other persistent atrial fibrillation 10/14/2022 Heart failure 09/09/2021 Chronic kidney disease, stage 3b 12/31/2020 Overview: Per CKD protocol Chronic insomnia 12/17/2020 Hypertensive kidney disease with stage 3b chronic kidney disease 12/04/2020 Overview: Per CKD protocol Idiopathic hypothyroidism 01/03/2020 Chronic edema 01/03/2020 Venous stasis dermatitis of both lower extremiti es 01/03/2020 Gastroesophageal reflux disease without esophagi tis 07/07/2019 DM type 2 with diabetic peripheral neuropathy Morbid obesity due to excess calories 2017 KARUNA (obstructive sleep apnea) 02/21/2016 Overview: 02/12/16 PSG: AHI 11.5/RDI 15.7, <89% 55 mins [facility] Permanent atrial fibrillation 09/17/2015 TMJ pain dysfunction syndrome 03/01/2014 HTN, goal below 130/80 06/10/2013 Routine general medical exam ination at a health care facility 01/12/2013 Overview: --Liz Need decrease dose ambien. 11/12 cologuard WNL sherly 3y 01/07 nuclear stress. Normal EF. 09/07 stop amiodarone. 11/07 TSH up, start synthroid 04/05 carotids WNL 08/05 inc atorvastatin to 40mg, add prandin. Repeat A1c & LDL at goal 04/03 colonoscopy-6mm tubular adenoma--sherly 5y 01/01 CV[facility] notes scanned. Gout 01/12/2013 Alcohol dependence in remission 09/17/2012 History of subarachnoid hemorrhage 09/14/2012 Overview: Non-aneurysmal SAH ([place] 3, H&H, 1, WFNS 1). No f/u needed Dyslipidemia 07/06/2002 Type 2 diabetes mellitus wit h hemoglobin A1c goal of less than 8.0% 07/06/2002 Overview: 6 <7. 2 a1c 8.2 06/03 a1c 7.7 02/01 a1c 7.5 on insulin ICD-10 update of inactive term documented as of this encounter (statuses as of 11/25/2023) Resolved Problems Problem Noted Date Diagnosed Date Resolved Date Body mass index (BMI) of 40. 0 to 44.9 in adult 10/01/2020 12/17/2020 Overview: Per Obesity protocol - Per Obesity protocol - Per Obesity protocol - Per Obesity protocol - Body mass index (BMI) of 45. 0 to 49.9 in adult 04/02/2020 10/04/2020 Overview: Per Obesity protocol - Per Obesity protocol - Per Obesity protocol - Body mass index (BMI) of 40. 0 to 44.9 in adult 02/28/2020 04/05/2020 Overview: Per Obesity protocol - Per Obesity protocol - Body mass index (BMI) of 45. 0 to 49.9 in adult 08/02/2019 03/01/2020 Overview: Per Obesity protocol - Hypertensive kidney disease with chronic kidney disease stage III 07/07/2019 07/07/2019 History of shingles 07/07/2019 12/18/19 Gastroesophageal reflux dise ase without esophagitis 07/01/2019 12/17/2020 Hypertensive kidney disease with chronic kidney disease stage III 07/01/2019 12/06/2020 Overview: Per CKD protocol Kidney disease, chronic, sta ge III (GFR 30-59 ml/min) 01/31/2019 07/07/2019 Overview: Per CKD protocol Body mass index (BMI) of 40. 0 to 44.9 in adult 09/29/2017 08/03/2019 Overview: Per Obesity protocol #1 Body mass index (BMI) of 45. 0 to 49.9 in adult 08/04/2017 10/02/2017 Overview: Per Obesity protocol #1 Body mass index (BMI) of 40. 0 to 44.9 in adult 03/23/2017 08/12/2017 Overview: Per Obesity protocol #1 Acute sinusitis 10/26/2013 10/23/2016 Overview: 11/02 CT sinus/brain at [facility] shows left maxillary sinusitis. S/p amox, given levaquin Lymphadenopathy 07/28/2013 01/03/2020 Otitis externa of left ear 07/28/2013 0 10/23/2016 GERD (gastroesophageal reflux disease) 05/06/2013 07/01/2019 Wrist pain, right 01/28/2013 10/23/2016 SAH (subarachnoid hemorrhage) 10/04/2012 01/28/2013 ADVANCE DIRECTIVE INFORMATION 02/14/2005 12/17/2020 Overview: No, Advance Directive brochure offered , patient declined. FAMILY HISTORY OF CORONARY DISEASE 07/06/2002 12/17/2020 documented as of this encounter (statuses as of 11/25/2023) Immunizations Name Administration Dates Next Due COVID-19 mRNA, LNP-s, No Pre serve, 2-Dose Series ([employer]) 10/10/2021,02/26/2021,09/10/2020,08/15 Covid-19, Mrna, Lnp-s, Pf, B ivalent, 30 Mcg, IM, 12 yrs and above (Pfizer) 03/13/2022 Hepatitis B, 20+ yrs 07/05/2015,01/16/2014,12/13 Pneumococcal Conjugate Vacc, 13 Valent (Prevnar) 09/27/2015 Pneumococcal Polysaccharide PPV23 (Pneumovax) 10/23/2016,12/05/2005 Seasonal Influenza, PF, 6 M & above, IM , (FluLaval or Fluzone) 05/06/2019,03/18/2018,03/12/2017 Seasonal Influenza, Quad, Na belinda (Flumist) 02/29/2020 Seasonal Influenza, Quadriva lent Hd (Fluzone Hd) 04/29/2023,02/21/2021 Seasonal Influenza, Quadriva lent Hd, 65+ Yrs 03/08/2022,02/29/2020 Seasonal Influenza, Quadriva lent, No Preserve, IM 04/01/2016 Seasonal Influenza, Split, I IV3, With Preserve, Inj 02/24/2015,03/01/2014,03/11/2013,03/21 Seasonal Influenza, Trivalen t, High Dose, No Preserve, IM 05/16/2019 TDAP (age 10 and older)(Boostrix) 03/11/2013 Varicella Zoster Vaccine (Adult) 05/30/2013 documented as of this encounter Social History Tobacco Use Types Packs/Day Years Used Date Smoking Tobacco: Never Smokeless Tobacco: Never Alcohol Use Standard Drinks/Week Comments No 0 (1 standard drink = 0.6 oz pur e alcohol) hx alcoholism PHQ-2 Answer Date Recorded PHQ Adult Total Score 0 10/14/2022 Hunger Vital Sign Answer Date Recorded Within the past 12 months, y ou worried that your food would run out before you got the money to buy more. Never true 10/15/19 23 Within the past 12 months, t he food you bought just didn't last and you didn't have money to get more. Never true 10/14/2022 Sex and Gender Information Value Date Recorded Sex Assigned at Male 01/03/2020 3:25 PM EDT Gender Identity Male 01/03/2020 3:25 PM EDT Sexual Orientation Straight 01/03/2020 3: 25 PM EDT Job Start Date Occupation Industry Not on file Not on file Not on file documented as of this encounter Last Filed Vital Signs Vital Sign Reading Time Taken Comments Blood Pressure 135/82 11/25/2023 8:54 AM EDT Pulse 125 11/25/2023 8:54 AM EDT Temperature - - Respiratory Rate - - Oxygen Saturation - - Inhaled Oxygen Concentration - - Weight 117.8 kg (259 lb 9.6 oz) 11/25/2023 8:54 AM EDT Height - - Body Mass Index 34.72 11/20/2023 10:01 AM EDT documented in this encounter Progress Notes * Davdi Niño MD - 11/25/2023 9:04 AM EDT [facility] [address] [place] [address] [facility] Chief Complaint: Pt. c/o HPI: Patient is seen in request of Tesfaye Solitario MD. Renan Harris is a 73 year old male who presents with buttock mass, hematoma, draining and painful. Past Surgical History: Procedure Laterality Date COLONOSCOPY, DIAGNOSTIC (RECTUM) 03/28/2013 hyperplastic, adenomatous polyps, and inflammatory polyps, repeat colonoscopy in 5 years EGD, FLEXIBLE, DIAGNOSTIC 09/17/2015 ESOPHAGOGASTRODUODENOSCOPY (EGD), FLEXIBLE, TRANSORAL, DIAGNOSTIC performed by Michael Emmanuel MD at ENDOSCOPY [facility] CATHETER IN ARTERIES 09/14/2012 CATHETER PLACEMENT, BRACHIOCEPHALIC, THIRD ORDER BRANCH performed by Dilip Feilz MD at OR [facility] CATHETER IN ARTERIES 09/23/2012 CATHETER PLACEMENT, BRACHIOCEPHALIC, THIRD ORDER BRANCH performed by Rola Escobedo MD at OR [facility] REMOVAL OF KNEE CYST (MARS'S) 1997 REPAIR INITIAL INGUINAL HERNIA REDUCIBLE AGE 5 OR MORE 1999 Inguinal Hernia Repair,5+Y/O,Reducibl REPAIR OF KNEE LIGAMENT/CAPSULE 1987 Knee Repair Cruciate Ligament REVISE UPPER EYELID/EXCESS SKIN Right 11/08/2014 Dr. Melvin Past Medical History: Diagnosis Date Benign neoplasm of colon 03/28/13 hyperplastic, adenomatous polyps, and inflammatory polyps, repeat colonoscopy in 5 years Chronic edema 01/03/2020 Chronic insomnia 12/17/2020 DM type 2, goal A1c below 7 Dyslipidemia 07/06/2002 Family history of premature CAD Gout 01/12/2013 History of shingles 07/07/2019 HTN, goal below 130/80 06/10/2013 HTN, goal below 140/90 Idiopathic hypothyroidism 01/03/2020 Mixed dyslipidemia Morbid obesity due to excess calories (HCC) 2017 Paroxysmal atrial fibrillation (HCC) 09/17/2015 Subarachnoid hemorrhage (HCC) 09/14/2012 Non-aneurysmal SAH (De [place] 3, H&H, 1, WFNS 1). No f/u needed TMJ pain dysfunction syndrome 03/01/2014 Venous stasis dermatitis of both lower extremities 01/03/2020 Current Outpatient Medications Medication Sig Dispense Refill Cephalexin 500 MG Oral Capsule (Keflex) Take 1 Capsule by mouth in the morning and 1 Capsule beforebedtime. Do all this for 10 days. 20 Capsule 0 Insulin Syringe-Needle U-100 (BD INSULIN SYRINGE ULTRAFINE) 30G X 1/2" 1 ML MISC USE DIRECTED 1 Box Dosing Unit 5 Magnesium Oxide 400 MG Tablet Take 750 mg by mouth daily. 180 Tab 1 Insulin Syringe-Needle U-100 (RELION INSULIN SYRINGE) 31G X 5/16" 1 ML MISC Use daily with insulin.E11.9 100 Box Dosing Unit 3 diphenhydrAMINE HCl (BENADRYL ITCH STOPPING) 2 % GEL Apply topically to affected area 2 times a dayas needed for Itching. Apply to arms. 1 Tube 1 SURGICAL COMPRESSION STOCKING Dispense velcro tightening compression wraps for knee to ankle. Please fit to patient. 2 Each 2 SUMAtriptan (IMITREX) 50 MG Tablet Take 2 tablets at onset of migraine and one tablet every 2 hoursas needed, not more than 4 tablets in 24 hours 12 Tab 5 Blood Glucose Monitoring Suppl (ACCU-CHEK JASKARAN PLUS) w/Device KIT TEST BLOOD SUGAR EVERY DAY 1 Kit0 Glucose Blood (ACCU-CHEK JASKARAN PLUS) STRP Ck FS daily E 11.9 100 Strip 3 Prodigy Twist Top Lancets 28G CHECK FINGERSTICK BLOOD SUGAR THREE TIMES DAILY BEFORE MEALS 300 Each3 Hydrocortisone Acetate 25 MG Rectal Suppository (Anusol-HC) Administer into the rectum 2 times a day in the morning and at bedtime as needed for Hemorrhoids. Up to 2 weeks. (Patient not taking: Reported on 08/18/2023) 24 Suppository 1 Triamcinolone Acetonide 0.1 % External Cream (Aristocort) APPLY CREAM EXTERNALLY TO AFFECTED AREA TWICE DAILY TO LEGS (Patient not taking: Reported on 08/05/2023) 80 g 0 Nystatin-Triamcinolone 415007-9.1 UNIT/GM-% External Cream (Mycolog) APPLY CREAM TOPICALLY TO AFFECTED AREA TWICE DAILY FOR 2 WEEKS (Patient not taking: Reported on 08/18/2023) 60 g 2 Sucralfate 1 GM Oral Tablet (Carafate) TAKE 1 TABLET BY MOUTH 4 TIMES DAILY 30 MINUTES BEFORE MEALSAND AT BEDTIME 360 Tablet 1 Fluticasone Propionate 50 MCG/ACT Nasal Suspension Administer into each nostril 2 Sprays in the morning. 18 mL 11 Atorvastatin Calcium 40 MG Oral Tablet (Lipitor) Take 1 tablet by mouth once daily 90 Tablet 1 metFORMIN HCl 500 MG Oral Tablet (Glucophage) TAKE 1 TABLET BY MOUTH TWICE DAILY WITH MORNING MEAL AND WITH EVENING MEAL 180 Tablet 0 Gabapentin 100 MG Oral Capsule (Neurontin) TAKE 1 CAPSULE BY MOUTH THREE TIMES DAILY 270 Capsule 3 Lisinopril 20 MG Oral Tablet (Prinivil) Take 1 tablet by mouth once daily (Patient taking differently: Takes in evening) 90 Tablet 3 Jardiance 10 MG Oral Tablet (Empagliflozin) Take 1 tablet by mouth once daily 90 Tablet 3 Terazosin HCl 2 MG Oral Capsule Take 1 capsule by mouth once daily at bedtime 90 Capsule 3 cloNIDine HCl 0.3 MG Oral Tablet Take 1 tablet by mouth twice daily (Patient taking differently: Takes at 1200 at in evening) 180 Tablet 3 Dabigatran Etexilate Mesylate 150 MG Oral Capsule (Pradaxa) Take 1 capsule by mouth twice daily 180Capsule 1 Victoza 18 MG/3ML Subcutaneous Solution Pen-injector (Liraglutide) INJECT 1.8 MG SUBCUTANEOUSLY ONCE DAILY 9 mL 3 Levothyroxine Sodium 75 MCG Oral Tablet (Levoxyl) TAKE 1 TABLET BY MOUTH IN THE MORNING (AT LEAST 30 MINUTES PRIOR TO BREAKFAST OR OTHER MEDS) 90 Tablet 3 Metoprolol Succinate ER 25 MG Oral Tablet Extended Release 24 Hour (toPROL XL) Take 0.5 Tablets by mouth every evening. 90 Tablet 3 Metoprolol Succinate ER 100 MG Oral Tablet Extended Release 24 Hour (toPROL XL) TAKE 1 TABLET BY MOUTH ONCE DAILY IN THE MORNING 90 Tablet 3 Metoprolol Succinate ER 50 MG Oral Tablet Extended Release 24 Hour (toPROL XL) TAKE 1 TABLET BY MOUTH ONCE DAILY IN THE EVENING 90 Tablet 3 Vitamin D 50 MCG (2000 UT) Oral Capsule Take 2,000 Units by mouth in the morning. 90 Capsule 0 Torsemide 20 MG Oral Tablet (Demadex) Take 2 tablets by mouth twice daily 360 Tablet 3 Zolpidem Tartrate 10 MG Oral Tablet (Ambien) TAKE 1 TABLET BY MOUTH ONCE DAILY AT BEDTIME NEEDEDFOR SLEEP 30 Tablet 5 Pantoprazole Sodium 40 MG Oral Tablet Delayed Release (Protonix) TAKE 1 TABLET BY MOUTH TWICE DAILY. DO NOT CUT, CRUSH OR CHEW 180 Tablet 2 Insulin Glargine Solostar 100 UNIT/ML Subcutaneous Solution Pen-injector Inject 75 Units under the skin every night at bedtime. E11.9 60 mL 5 Zoster Vac Recomb Adjuvanted 50 MCG/0.5ML Intramuscular Suspension Reconstituted (Shingrix) Inject 0.5 mL into a large muscle now and repeat dose in 60 to 180 days 1 Each 1 Allopurinol 300 MG Oral Tablet (Zyloprim) Take 1 Tablet by mouth in the morning. 30 Tablet 1 Vitamin D (Ergocalciferol) 1.25 MG (04886 UT) Oral Capsule (Drisdol) Take 1 Capsule by mouth once aweek. 6 Capsule 0 Spironolactone 25 MG Oral Tablet (Aldactone) TAKE 1/2 (ONE-HALF) TABLET BY MOUTH IN THE MORNING 45 Tablet 3 No current facility-administered medications for this visit. 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 ROS EXAM: CONSTITUTIONAL: No change in weight, No weakness, No fatigue, and No fevers, sweats, or chills NECK: No lumps or masses, No swollen glands, No recent swelling in thyroid area, No significant pain in neck, and No h/o goiter or thyroid disease PULMONARY: No cough, sputum, or hemoptysis, No wheezing, No rales, No shortness of breath, and No recent change in breathing CARDIOVASCULAR: No chest pain, No shortness of breath, No dyspnea on exertion, No orthopnea, No paroxysmal nocturnal dyspnea, No edema, No palpitations, and No syncope GASTROINTESTINAL: No abdominal pain, No change in bowel habits, No significant heartburn, No significant change in appetite, No nausea, vomiting, diarrhea, or constipation, No hematemesis, No blood in stools or black tarry stools, No abdominal bloating or early satiety, and No dysphagia HEMATOLOGIC: No anemia, No chills, No HIV risk factors, No night sweats, No swollen nodes, No weight loss, and No history of transfusion EXTREMITIES: No pain, redness or swelling on the joints SKIN/INTEGUMENTARY: No edema, No rash, and No itching NEUROLOGIC: Normal balance, No headaches, No seizures, and No weakness PSYCHIATRIC: No depression, No anxiety, and No psychosis Physical Exam: BP 135/82 | Pulse 125 | Wt 117.8 kg (259 lb 9.6 oz) | BMI 34.72 kg/m | BSA 2.46 m Constitutional: alert,healthy,well nourished Head: normocephalic,atraumatic Eyes: conjunctiva non-injected,sclera white,EOMI Ears: pinna normal shape and color Nose: no mucosal erythema,no mucosal edema,no purulent discharge Mouth: no exudate,no erythema,lips, mucosa, and tongue normal Neck: supple Lungs: clear to auscultation,breath sounds are equal and symmetric,no crepitus Heart: regular rate & rhythm,no murmur, gallops or rubs Abdomen: soft, non-tender, normal bowel sounds, + hernia (umbilical, reducible)Back: normal curvature,normal ROM,no CVA tenderness Extremities: no joint deformities, effusion, or inflammation,no edema,no skin discoloration Neuro: alert,gait normal,motor normal Skin: bilateral buttock masses, R >L hematomas, R draining and painful no obvious rashes or significant lesions,warm and dry with good turgor IMPRESSION: Bilateral buttock masses, R >L hematomas PLAN: Will drain right symptomatic hematoma in office next week, stop Pradaxa for 2 days. David Niño MD 11/25/2023 9:09 AM documented in this encounter Nursing Notes * Jim Jurado MED ASSIST - 11/25/2023 8:55 AM EDT Chief Complaint Patient presents with NEW PATIENT Patient with AV malformation occupying space in right buttock with bleeding. Verified patient. documented in this encounter Plan of Treatment Upcoming Encounters Date Type Department Care Team (Late st Contact Info) Description 12/02/2023 9:00 AM EDT Office Visit General Surgery, [facility] [address] [place] [address] David Niño MD [address] [facility] [place] [address] 02/29/2024 10:45 AM EDT Office Visit Dermatology [facility] [address] [facility] [place] [address] Adonis Kilgore MD [address] [facility] [place] [address] 04/22/2024 10:20 AM EDT Office Visit Family Practice [facility] [address] [place] [address] Yo Paulino CRNP [address] [place] [address] 10/26/2024 10:00 AM EDT Office Visit Family Practice [facility] [address] [place] [address] Vishnu Allison MD [address] [place] [id number] Scheduled Procedures Name Priority Associated Diagnoses Date/Ti me COLONOSCOPY FLEXIBLE PROXIMA L DIAGNOSTIC Recall History of colonic polyps Scheduled Referrals Name Type Priority Associated Diagnoses Orde r Schedule SURGERY REFERRAL OP Referral Within 10 da ys (routine) AVM (arteriovenous malformation) Skin infection Ordered: 11/20/2023 Health Maintenance Due Date Last Done Comments DXA Scan 1950 Zoster Vaccines (2 of 3) 07/25/2013 05/30/2013 COVID-19 Vaccine ( season) 2023 03/13/2022, 10/10/2021, 02/26/2021, Additional history exists DTaP,Tdap,and Td Vaccines (2 - Td or Tdap) 03/11/2023 03/11/2013 GFR 04/19/2024 10/19/2023, 07/24, 05/21/2023, Additional history exists HbA1c 04/19/2024 10/19/2023, 03/22, 09/12/2022, Additional history exists Diabetic Eye Exam 04/29/2024 04/29/2023, , 01/03/2020, Additional history exists Diabetic Foot Exam 04/29/2024 04/29/2023, 0 01/06/2022, 07/29/2017, Additional history exists CKD HGB USE SMARTSET 38282 05/21/202405/21, 09/12/2022, 02/06/2022, Additional history exists Albumin/Creatinine Ratio 10/18/2024 024, 09/12/2022, 02/06/2022, Additional history exists B-12 10/18/2024 10/19/2023, 08/21, 09/23/2021, Additional history exists CKD PHOS USE SMARTSET 47236 10/18/202409/21, 08/18/2023, 04/09/2023, Additional history exists TSH 10/18/2024 10/19/2023, 04/24, 09/12/2022, Additional history exists Depression Screening 11/19/2024 11/20/2023 Colonoscopy Discontinued 03/28/2013, 03/28/2013 RETIRED - COLONOSCOPY-EVERY 5 YRS AGES 18-100 Discontinued 03/29/2013, 03/28/2013, 03/28/2013 Hepatitis B Completed 07/05/2015, 12/21, 12/13/2013 Pneumococcal Vaccine: 65+ Years Completed 10/23/2016, 09/27/2015, 12/05/2005 Influenza Vaccine (FLU shot) Completed 04/29/2023, 03/08/2022, 02/21/2021, Additional history exists GARDASIL-HPV IMMUNIZATION SERIES Aged Out No longer eligible based on patient's age to complete this topic MENINGOCOCCAL (MENACTRA/MENVEO) Aged Out No longer eligible based on patient's age to complete this topic documented as of this encounter Medical Devices Not on filedocumented as of this encounter Visit Diagnoses Diagnosis Subcutaneous hematoma- Primary Contusion of unspecified site documented in this encounter Advance Directives * Full Code (Latest Code Status on File) Date Activated Date Inactivated Comments 09/14/2012 2:56 AM 09/24/2012 6:32 PM This order re flects the patients wishes and were consensually agreed upon. Question Answer Comments Discussion of Advance Directives occurred with: Not Discussed Does the patient have a Living Will? No Does the patient have Health Care Power of Attor neetu? No Care Teams Air Press Operator Relationship Specialty Start Date End Date Vishnu Allison MD [address] [place] [address] PCP - General Family Medicine 06/02/14 documented as of this encounter
--- OUTSIDE RECORDS SUMMARY | 2023-12-03 10:48 | External Medical Summary | Summary of Care ---
Author Name Unknown Organization [facility] Address [address] [place] [address] Phone [phone] Care Team Providers Care Cycle Touring Guide Name Role Phone Vishnu Allison MD Primary Care Provider + Reason for Referral * Evaluate & Treat - Unlimited Visits (Within 10 days (routine)) - Pending Review Specialty Diagnoses / Procedures Referred By Lori norton Referred To Contact General Surgery Diagnoses AVM (arteriovenous malformation) Skin infection Tesfaye Solitario MD [address] [employer] [place] [address] Referral ID Status Reason Start Date Expiration Date Visits Requested Visits Authorized [id number] Pending Review Specialty Services Required 11/20/[phone] Question Answer Referral Priority Within 10 days (routine) Where should this appointment be scheduled? [facility] What condition is the patient being seen for? General Surgery Conditions What condition is the patient being seen for? 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 Pt states that it has been there for about 30-45 days. Area was getting better but then got worse again. Pt states that it can be painful at times. Encounter Details Date Type Department Care Team (Late st Contact Info) Description 11/20/2023 10:20 AM EDT Office Visit Family [facility] [address] [facility] [address] Tesfaye Solitario MD [address] [place] [address] AVM (arteriovenous malformation)*; Skin infection; Permanent atrial fibrillation (HCC); Alcohol dependence in remission (HCC); Morbid obesity due to excess calories (HCC); Stage 3b chronic kidney disease (HCC) Allergies Active Allergy Reactions Criticality Noted Date Comments Amiodarone Rash 10/08/2018 Sildenafil Citrate 06/20/2014 Severe [place], flushed feeling Simvastatin 12/05/2005 Myalgias arthralgias documented as of this encounter (statuses as of 11/20/2023) Medications Medication Sig Dispensed Refills Start Date [...] hemoglobin A1c goal of less than 8.0% ([facility]) Use daily with insulin. E11.9 100 Box [...] Patient not taking.Reported on 08/05/2023 Nystatin-Triamcino lone 873599-4.1 UNIT/GM-% External Cream (Mycolog)Indicatio ns:Cutaneous candidiasis APPLY [...] 4 Active Vitamin D (Ergocalciferol) 1.25 MG (85993 UT) Oral Capsule (Drisdol) Take 1 Capsule [...] as of this encounter (statuses as of 11/20/2023) Active Problems Problem Noted Date Diagnosed Date [...] as of this encounter (statuses as of 11/20/2023) Resolved Problems Problem Noted Date Diagnosed Date [...] 10/26/2013 10/23/2016 Overview: 11/02 CT [facility] at [facility] shows left maxillary sinusitis. S/p amox, [...] as of this encounter (statuses as of 11/20/2023) Immunizations Name Administration Dates Next Due COVID-19 mRNA, LNP-s, No Pre serve, 2-Dose Series ([facility]) 10/10/2021,02/26/2021,09/10/2020,08/15 Covid-19, Mrna, Lnp-s, Pf, B ivalent, 30 Mcg, IM, 12 yrs and above ([facility]) 03/13/2022 Hepatitis B, 20+ yrs 07/05/2015,01/16/2014,12/13 Pneumococcal [...] Sign Reading Time Taken Comments Blood Pressure 118/72 11/20/2023 10:01 AM EDT Pulse 88 11/20/2023 10:01 AM EDT Temperature 36.3 C (97.4 F) 11/20/2023 1 0:01 AM EDT Respiratory Rate 16 11/20/2023 10:0 1 AM EDT Oxygen Saturation 98% 11/20/2023 10: 01 AM EDT Inhaled Oxygen Concentration - - Weight 116.7 kg (257 lb 3.2 oz) 024 10:01 AM EDT Height 184.2 cm (6' 0.5") 11/20/2023 10 :01 AM EDT Body Mass Index 34.4 11/20/2023 10:01 AM EDT documented in this encounter Progress Notes * Tesfaye Solitario MD - 11/20/2023 10:08 AM EDT Images from the original note were not included. History of Present Illness Renan Harris is a 73 year old male that presents for Acute (Pt here for a sore on his right buttocks. Pt states that it has been there for about 30-45 days. Area was getting better but then got worse again. Pt states that it can be painful at times. ) Physical Exam BP 118/72 (BP Site: Left Arm, BP Position: Sitting, BP Cuff Size: Large) | Pulse 88 | Temp 36.3 C(97.4 F) (Tympanic) | Resp 16 | Ht 1.842 m (6' 0.5") | Wt 116.7 kg (257 lb 3.2 oz) | SpO2 98% | BMI 34.40 kg/m | BSA 2.44 m AAOx3 Normal affect NCAT/ PERRL Neck supple Throat clear Irregularly irregular rhythm Lungs CTABL Abd soft +BS, obese Ext warm and well perfused No gross neuro deficits Slow and antalgic gait His left buttock has a large and protuberant ovoid discolored lesion with dried eschar on the superior aspect. It is non tender. The color of the lower, non eschar aspect has the appearance of varicosity/collection of blood vessels. There is dried blood at the top portion. There is so focal inflamma tion/irritation with scant drainage at the top portion. There is some pressure related skin thickening/scale of the left buttocks where the lesion has been rubbing against the buttock. I have reviewed most recent labs None Assessment and Plan AV malformation w/ infection - - there is some mild component of infection as well. I explained to the patient this is going to need to be removed or intervened upon. Will give a course of PO abx and he needs to pad/dress this daily to limit the rubbing - given a box of dressings. Referred to gen surg - this may be able to be done with laser or ablatively. I do not think he needs to see a colorectal surgeon at this is nowhere near the rectum. Permanent atrial fibrillation (HCC) - same, rate controlled, only bleeding is from this site. Alcohol dependence in remission (HCC) - same Morbid obesity due to excess calories (HCC) - unchanged Stage 3b chronic kidney disease (HCC) - reviewed recent labs and still in this range. Wrap-Up Prn/as needed after seeing surgery Time: I spent a total of 30-39 minutes (exact time 33 mins) on the date of service in preparation, delivery, and documentation of the care provided to Renan Harris excluding any time spent in the performance of separately billed services. documented in this encounter Plan of Treatment Upcoming Encounters Date Type Department Care Team (Late st Contact Info) Description 11/25/2023 9:15 AM EDT Office Visit General Surgery, [facility] [address] [place] [address] David Niño MD [address] [place] [address] 02/29/2024 10:45 AM EDT Office Visit Dermatology [facility] [address] [place] [address] Adonis Kilgore MD [address] [place] [address] 04/22/2024 10:20 AM EDT Office Visit [facility] [address] [place] [address] Yo Paulino CRNP [address] [place] [address] 10/26/2024 10:00 AM EDT Office Visit [facility] [address] [place] [address] Vishnu Allison MD [address] [place] [address] Scheduled Procedures Name Priority Associated Diagnoses Date/Ti me COLONOSCOPY FLEXIBLE PROXIMA L DIAGNOSTIC Recall History of colonic polyps Scheduled Referrals Name Type Priority Associated Diagnoses Orde r Schedule SURGERY REFERRAL OP Referral Within 10 da ys (routine) AVM (arteriovenous malformation) Skin infection Ordered: 11/20/2023 Health Maintenance Due Date Last Done Comments Zoster Vaccines (2 of 3) 07/25/2013 05/30/2013 COVID-19 Vaccine ( season) 2023 03/13/2022, 10/10/2021, 02/26/2021, Additional history exists Postponed from 02/20/2023 (Patient Declined After Education) DTaP,Tdap,and Td Vaccines (2 - Td or Tdap) 11/23/2023 03/11/2013 Postponed from 03/11/2023 (Other) DXA Scan 11/23/2023 Postponed from 1950 (Other) GFR 04/19/2024 10/19/2023, 07/24, 05/21/2023, Additional history exists HbA1c 04/19/2024 10/19/2023, 03/22, 09/12/2022, Additional history exists Diabetic Eye Exam 04/29/2024 04/29/2023, , 01/03/2020, Additional history exists Diabetic Foot Exam 04/29/2024 04/29/2023, 0 01/06/2022, 07/29/2017, Additional history exists CKD HGB USE SMARTSET 30832 05/21/202405/21, 09/12/2022, 02/06/2022, Additional history exists Albumin/Creatinine Ratio 10/18/2024 024, 09/12/2022, 02/06/2022, Additional history exists B-12 10/18/2024 10/19/2023, 08/21, 09/23/2021, Additional history exists CKD PHOS USE SMARTSET 14067 10/18/202409/21, 08/18/2023, 04/09/2023, Additional history exists TSH [...] as of this encounter Visit Diagnoses Diagnosis 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 No Care Teams Cycle Touring Guide Relationship Specialty Start Date End Date Vishnu Allison MD [address] [place] [address] PCP - General Family Medicine 06/02/14 documented as of this encounter
--- OUTSIDE RECORDS SUMMARY | 2023-12-03 10:49 | External Medical Summary | Summary of Care ---
Author Name Unknown Organization [facility] [address] [facility] [address] Phone [phone] Care Team Providers Care Director Of Construction Name Role Phone Vishnu Allison MD Primary Care Provider + Reason for Visit * Reason Onset Date Comments Test Results 08/21/2023 Encounter Details Date Type Department Care Team (Late st Contact Info) Description 08/21/2023 Telephone Nephrology, Guillermina Duque [address] [place] [address] ZemaitisNaomi PA-C [address] [place] [address] Test Results Allergies Active Allergy Reactions Criticality Noted Date Comments Amiodarone Rash 10/08/2018 Sildenafil Citrate 06/20/2014 Severe SPAULDING, flushed feeling Simvastatin 12/05/2005 Myalgias arthralgias documented as of this encounter (statuses as of 11/04/2023) Medications Medication Sig Dispensed Refills Start Date End Date Status Insulin Syringe-Needle U-100 (BD INSULIN SYRINGE ULTRAFINE) 30G X 1/2" 1 ML MISC USE DIRECTED 1 Box Dosing Unit 5 11/29/19 17 Active Magnesium Oxide 400 MG TabletIndication s:Paroxysmal atrial fibrillation (HCC) Take 750 mg by mouth daily. 180 Tab 1 12/15/19 18 Active Insulin Syringe-Needle U-100 (RELION INSULIN SYRINGE) 31G X 5/16" 1 ML MISCIndications: Type 2 diabetes mellitus with hemoglobin A1c goal of less than 8.0% (HCC) Use daily with insulin. E11.9 100 Box Dosing Unit 3 08/11/19 19 Active diphenhydrAMINE HCl (BENADRYL ITCH STOPPING) 2 % GELIndications:D ermatitis due to drug reaction Apply topically to affected area 2 times a day as needed for Itching. Apply to arms. 1 Tube 1 09/04/19 19 Active SURGICAL COMPRESSION STOCKING Dispense velcro tightening compression wraps for knee to ankle. Please fit to patient. 2 Each 2 09/30/19 19 Active SUMAtriptan (IMITREX) 50 MG TabletIndication s:Migraine variant Take 2 tablets at onset of migraine and one tablet every 2 hours as needed, not more than 4 tablets in 24 hours 12 Tab 5 07/04/19 20 Active Additional Information Patient not taking.Reported on 08/18/2023 Blood Glucose Monitoring Suppl (ACCU-CHEK JASKARAN PLUS) w/Device KIT TEST BLOOD SUGAR EVERY DAY 1 Kit 0 07/14/19 Active Glucose Blood (ACCU-CHEK JASKARAN PLUS) STRP Ck FS daily E 11.9 100 Strip 3 02/21/20 Active Prodigy Twist Top Lancets 28G CHECK FINGERSTICK BLOOD SUGAR THREE TIMES DAILY BEFORE MEALS 300 Each 3 05/11/20 20 Active Hydrocortisone Acetate 25 MG Rectal Suppository (Anusol-HC) Administer into the rectum 2 times a day in the morning and at bedtime as needed for Hemorrhoids. Up to 2 weeks. 24 Suppository 1 12/19/19 21 Active Additional Information Patient not taking.Reported on 08/18/2023 Triamcinolone Acetonide 0.1 % External Cream (Aristocort) APPLY CREAM EXTERNALLY TO AFFECTED AREA TWICE DAILY TO LEGS 80 g 0 02/01/20 21 Active Additional Information Patient not taking.Reported on 08/05/2023 Nystatin-Triamci nolone 781901-3.1 UNIT/GM-% External Cream (Mycolog)Indicat ions:Cutaneous candidiasis APPLY CREAM TOPICALLY TO AFFECTED AREA TWICE DAILY FOR 2 WEEKS 60 g 2 03/09/20 21 Active Additional Information Patient not taking.Reported on 08/18/2023 Sucralfate 1 GM Oral Tablet (Carafate)Indica tions:Dyspepsia, Gastroesophageal reflux disease with esophagitis TAKE 1 TABLET BY MOUTH 4 TIMES DAILY 30 MINUTES BEFORE MEALS AND AT BEDTIME 360 Tablet 1 06/12/20 21 Active Fluticasone Propionate 50 MCG/ACT Nasal SuspensionIndica tions:Chronic rhinitis,Dysfunc tion of left eustachian tube Administer into each nostril 2 Sprays in the morning. 18 mL 11 04/10/20 22 Active Atorvastatin Calcium 40 MG Oral Tablet (Lipitor) Take 1 tablet by mouth once daily 90 Tablet 1 05/30/20 22 Active metFORMIN HCl 500 MG Oral Tablet (Glucophage) TAKE 1 TABLET BY MOUTH TWICE DAILY WITH MORNING MEAL AND WITH EVENING MEAL 180 Tablet 0 05/30/20 22 Active Gabapentin 100 MG Oral Capsule (Neurontin)Indic ations:DM type 2 with diabetic peripheral neuropathy (HCC) TAKE 1 CAPSULE BY MOUTH THREE TIMES DAILY 270 Capsule 3 08/22/19 23 Active Lisinopril 20 MG Oral Tablet (Prinivil) Take 1 tablet by mouth once daily 90 Tablet 3 10/31/19 23 Active Additional Information Patient taking differently: Takes in evening, Reported on 08/18/2023 Spironolactone 25 MG Oral Tablet (Aldactone)Indic ations:HTN, goal below 140/90 Take 0.5 Tablets by mouth in the morning. 45 Tablet 3 11/26/19 23 Active Jardiance 10 MG Oral Tablet (Empagliflozin) Take 1 tablet by mouth once daily 90 Tablet 3 03/31/20 23 Active Terazosin HCl 2 MG Oral CapsuleIndicatio ns:Paroxysmal atrial fibrillation (HCC),Atrial flutter (HCC),HTN, goal below 140/90 Take 1 capsule by mouth once daily at bedtime 90 Capsule 3 05/22/20 23 Active cloNIDine HCl 0.3 MG Oral TabletIndication s:HTN, goal below 140/90,Essential hypertension, benign Take 1 tablet by mouth twice daily 180 Tablet 3 05/22/20 23 Active Additional Information Patient taking differently: Takes at 1200 at in evening, Reported on 08/18/2023 Dabigatran Etexilate Mesylate 150 MG Oral Capsule (Pradaxa)Indicat ions:Paroxysmal atrial fibrillation (HCC) Take 1 capsule by mouth twice daily 180 Capsule 1 06/01/20 23 Active Victoza 18 MG/3ML Subcutaneous Solution Pen-injector (Liraglutide)Ind ications:Type 2 diabetes mellitus with hemoglobin A1c goal of less than 8.0% (HCC) INJECT 1.8 MG SUBCUTANEOUSLY ONCE DAILY 9 mL 3 05/30/20 23 Active Levothyroxine Sodium 75 MCG Oral Tablet (Levoxyl)Indicat ions:Hypothyroid ism, unspecified type TAKE 1 TABLET BY MOUTH IN THE MORNING (AT LEAST 30 MINUTES PRIOR TO BREAKFAST OR OTHER MEDS) 90 Tablet 3 06/24/19 24 Active Metoprolol Succinate ER 25 MG Oral Tablet Extended Release 24 Hour (toPROL XL)Indications:H TN, goal below 140/90,Permanent atrial fibrillation (HCC) Take 0.5 Tablets by mouth every evening. 90 Tablet 3 08/05/19 24 Active Metoprolol Succinate ER 100 MG Oral Tablet Extended Release 24 Hour (toPROL XL) TAKE 1 TABLET BY MOUTH ONCE DAILY IN THE MORNING 90 Tablet 3 08/05/19 24 Active Metoprolol Succinate ER 50 MG Oral Tablet Extended Release 24 Hour (toPROL XL) TAKE 1 TABLET BY MOUTH ONCE DAILY IN THE EVENING 90 Tablet 3 08/05/19 24 Active Vitamin D 50 MCG (2000 UT) Oral CapsuleIndicatio ns:Vitamin D deficiency Take 2,000 Units by mouth in the morning. 90 Capsule 0 08/21/19 24 Active Vitamin D (Ergocalciferol) 1.25 MG (17023 UT) Oral Capsule (Drisdol) Take 1 Capsule by mouth once a week. 6 Capsule 0 11/04/19 24 Active Torsemide 20 MG Oral Tablet (Demadex) Take 2 tablets by mouth twice daily 360 Tablet 11 12/11/19 22 024 Discontinued(Re fill) Levemir 100 UNIT/ML Subcutaneous Solution (insulin Detemir)Indicati ons:Type 2 diabetes mellitus with hemoglobin A1c goal of less than 8.0% ([facility]) Inject 75 Units under the skin at bedtime. 80 mL 3 07/18/19 23 024 Discontinued Zolpidem Tartrate 10 MG Oral Tablet (Ambien) TAKE 1 TABLET BY MOUTH ONCE DAILY AT BEDTIME NEEDED FOR SLEEP 30 Tablet 5 03/17/20 23 024 Discontinued(Re fill) Pantoprazole Sodium 40 MG Oral Tablet Delayed Release (Protonix) TAKE 1 TABLET BY MOUTH TWICE DAILY DO NOT CUT, CRUSH OR CHEW 180 Tablet 1 03/16/20 23 024 Discontinued Allopurinol 300 MG Oral Tablet (Zyloprim)Indica tions:Gout Take 1 tablet by mouth once daily 30 Tablet 0 08/17/19 24 024 Discontinued documented as of this encounter (statuses as of 11/04/2023) Active Problems Problem Noted Date Diagnosed Date [...] Need decrease dose ambien. 11/12 cologuard WNL hserly 3y 01/07 nuclear stress. Normal EF. 09/07 [...] goal of less than 8.0% 07/06/2002 Overview: 6/14 <7. 2/14 a1c 8.2 06/03 a1c 7.7 02/01 a1c 7.5 on insulin ICD-10 update of inactive term documented as of this encounter (statuses as of 11/04/2023) Resolved Problems Problem Noted Date Diagnosed Date [...] 07/07/2019 07/07/2019 History of shingles 07/07/2019 12/18/19 21 Gastroesophageal reflux dise ase without esophagitis 07/01/2019 [...] 10/26/2013 10/23/2016 Overview: 11/02 CT sinus[facility] at [facility] shows left maxillary sinusitis. S/p amox, given [...] as of this encounter (statuses as of 11/04/2023) Immunizations Name Administration Dates Next Due COVID-19 mRNA, LNP-s, No Pre serve, 2-Dose Series (Besstech) 10/10/2021,02/26/2021,09/10/2020,08/15 Covid-19, Mrna, Lnp-s, Pf, B ivalent, 30 Mcg, IM, 12 yrs and above (Besstech) 03/13/2022 Hepatitis B, 20+ yrs 07/05/2015,01/16/2014,12/13 Pneumococcal [...] Influenza, Split, I IV3, With Preserve, Inj 02/24/2015,03/01/2014,03/11/2013,03/21,05/25/2001 Seasonal Influenza, Trivalen t, High Dose, No [...] on file documented as of this encounter Miscellaneous Notes * Addendum Note - Naomi Arcos PA-C - 11/04/2023 12:32 PM EDTAddended by: NAOMI ARCOS on: 11/04/2023 12:32 PM Modules accepted: Orders * Telephone Encounter - Naomi Arcos PA-C - 11/04/2023 12:31 PM EDT Please let patient know new script for weekly Vit D placed - repeat after 6 wks use Naomi Arcos PA-C * Telephone Encounter - Aurora Scales RN - 08/21/2023 11:01 AM EST Te with pt regarding lab results. He states he was briefly out of the Allopurinol but has resumed it at this time. Aware to restart Vitamin D and repeat lab tests in 3 months. Orders placed by provider. * Telephone Encounter - Naomi Arcos PA-C - 08/21/2023 1:11 AM EST Patient with continue Vit D deficiency Will restart Vit D and reassess labs in 3 months Please inquire if patient is taking allopurinol for gout Any recent gout flares-uric acid levels recently elevated Naomi Arcos PA-C documented in this encounter Plan of Treatment Upcoming Encounters Date Type Department Care Team (Late st Contact Info) Description 02/29/2024 10:45 AM EDT Office [facility] [address] [facility] [address] Adonis Kilgore [facility] [address] [facility] [address] 04/22/2024 10:20 AM EDT Office Visit [facility] [address] [place] [address] Yo Paulino CRNP [address] [place] [address] 10/26/2024 10:00 AM EDT Office Visit [facility] [address] [place] [address] Vishnu Allison MD [address] [place] [address] Scheduled Orders Name Type Priority Associated Diagnoses Orde r Schedule 25-HYDROXY VITAMIN D Lab Routine Vitamin D deficiency Expected: 12/17/2023, Expires: 08/20/2024 Scheduled Procedures Name Priority Associated Diagnoses Date/Ti me COLONOSCOPY FLEXIBLE PROXIMA L DIAGNOSTIC Recall History of colonic polyps Health Maintenance Due Date Last Done Comments DXA Scan 1950 Zoster Vaccines (2 of 3) 07/25/2013 05/30/2013 COVID-19 Vaccine ( season) 2023 03/13/2022, 10/10/2021, 02/26/2021, Additional history exists DTaP,Tdap,and Td Vaccines (2 - Td or Tdap) 03/11/2023 03/11/2013 Depression Screening 10/15/2023 10/14/2022 GFR 04/19/2024 10/19/2023, 07/24, 05/21/2023, Additional history exists HbA1c 04/19/2024 10/19/2023, 03/22, 09/12/2022, Additional history exists Diabetic Eye Exam 04/29/2024 04/29/2023, , 01/03/2020, Additional history exists Diabetic Foot Exam 04/29/2024 04/29/2023, 0 01/06/2022, 07/29/2017, Additional history exists CKD HGB USE SMARTSET 79502 05/21/202405/21, 09/12/2022, 02/06/2022, Additional history exists Albumin/Creatinine Ratio 10/18/2024 024, 09/12/2022, 02/06/2022, Additional history exists B-12 10/18/2024 10/19/2023, 08/21, 09/23/2021, Additional history exists CKD PHOS USE SMARTSET 39615 10/18/202409/21, 08/18/2023, 04/09/2023, Additional history exists TSH 10/18/2024 10/19/2023, 04/24, 09/12/2022, Additional history exists Colonoscopy Discontinued 03/28/2013, 03/28/2013 RETIRED - COLONOSCOPY-EVERY [...] as of this encounter Visit Diagnoses Diagnosis Vitamin D deficiency- Primary Unspecified vitamin D deficiency documented in this encounter Advance Directives Latest Code Status on File Code Status Date Activated Date Inactivated Comments Full Code 09/14/2012 2:56 AM 09/24/2012 6:32 PM This o rder reflects the patients wishes and were consensually agreed upon. Question Answer Comments Discussion of Advance Directives occurred with: Not Discussed Does the patient have a Living Will? No Does the patient have Health Care Power of Engine Turner? No Care Teams Director Of Construction Relationship Specialty Start Date End Date Vishnu Allison MD [address] [place] [address] PCP - General Family Medicine 06/02/14 documented as of this encounter
--- OUTSIDE RECORDS SUMMARY | 2023-12-03 10:49 | External Medical Summary ---
Author Name Unknown Address Unknown Organization [id number]:[facility] [place] [address] [place] [address] Laboratory Report Ordering Provider Test Date Status SRINIVAS ALVA 10/19/2023 11:31:30 Final Observation Date Value Abnormality Reference (Units ) Status MYCODE SPECIMEN-SST 10/19/2023 11:31:30 Freezing of extracted DNA, whole blood and/or serum. Final Performing Location [facility] - [address] [place] [address]
--- OUTSIDE RECORDS SUMMARY | 2023-12-03 10:49 | External Medical Summary | Summary of Care ---
Author Name Unknown Organization [facility] Address [address] [place] [address] Phone [phone] Care Team Providers Care Private Detective Name Role Phone Vishnu Allison MD Primary Care Provider + Reason for Visit * Reason Comments eRx-Medication Refill Encounter Details Date Type Department Care Team (Late st Contact Info) Description 11/18/2023 Refill Cardiology, [facility] [address] [place] [address] Farrukh Eric PA-C [address] [place] [address] HTN, goal below 140/90 Allergies Active Allergy Reactions Criticality Noted Date Comments Amiodarone Rash 10/08/2018 Sildenafil Citrate 06/20/2014 Severe SPAULDING, flushed feeling Simvastatin 12/05/2005 Myalgias arthralgias documented as of this encounter (statuses as of 11/18/2023) Medications Medication Sig Dispensed Refills Start Date End Date Status Insulin Syringe-Needle U-100 (BD INSULIN SYRINGE ULTRAFINE) 30G X 1/2" 1 ML MISC USE DIRECTED 1 Box Dosing Unit 5 11/29/19 17 Active Magnesium Oxide 400 MG TabletIndications :Paroxysmal atrial fibrillation (HCC) Take 750 mg by mouth daily. 180 Tab 1 12/15/19 18 Active Insulin Syringe-Needle U-100 (RELION INSULIN SYRINGE) 31G X 5/16" 1 ML MISCIndications:T ype 2 diabetes mellitus with hemoglobin A1c goal of less than 8.0% ([facility]) Use daily with insulin. E11.9 100 Box Dosing Unit 3 08/11/19 19 Active diphenhydrAMINE HCl (BENADRYL ITCH STOPPING) 2 % GELIndications:De rmatitis due to drug reaction Apply topically to affected area 2 times a day as needed for Itching. Apply to arms. 1 Tube 1 09/04/19 Active SURGICAL COMPRESSION STOCKING Dispense velcro tightening compression wraps for knee to ankle. Please fit to patient. 2 Each 2 09/30/19 19 Active SUMAtriptan (IMITREX) 50 MG TabletIndications :Migraine variant Take 2 tablets at onset of migraine and one tablet every 2 hours as needed, not more than 4 tablets in 24 hours 12 Tab 5 07/04/19 20 Active Additional Information Patient not taking.Reported on 08/18/2023 Blood Glucose Monitoring Suppl (ACCU-CHEK JASKARAN PLUS) w/Device KIT TEST BLOOD SUGAR EVERY DAY 1 Kit 07/14/19 20 Active Glucose Blood (ACCU-CHEK JASKARAN PLUS) STRP Ck FS daily E 11.9 100 Strip 3 02/21/20 20 Active Prodigy Twist Top Lancets 28G CHECK [...] AREA TWICE DAILY TO LEGS 80 g 02/01/20 21 Active Additional Information Patient not taking.Reported on 08/05/2023 Nystatin-Triamcin olone 453603-9.1 UNIT/GM-% External Cream (Mycolog)Indicati ons:Cutaneous candidiasis APPLY CREAM TOPICALLY TO AFFECTED AREA TWICE DAILY FOR 2 WEEKS 60 g 2 03/09/20 21 Active Additional Information Patient not taking.Reported on 08/18/2023 Sucralfate 1 GM Oral Tablet (Carafate)Indicat ions:Dyspepsia,Ga stroesophageal reflux disease with esophagitis TAKE 1 TABLET BY MOUTH 4 TIMES DAILY 30 MINUTES BEFORE MEALS AND AT BEDTIME 360 Tablet 1 06/12/20 21 Active Fluticasone Propionate 50 MCG/ACT Nasal SuspensionIndicat ions:Chronic rhinitis,Dysfunct ion of left eustachian tube Administer into each nostril 2 Sprays in the morning. 18 mL 11 04/10/20 22 Active Atorvastatin Calcium 40 MG Oral Tablet (Lipitor) Take 1 tablet by mouth once daily 90 Tablet 1 05/30/20 22 Active metFORMIN HCl 500 MG Oral Tablet (Glucophage) TAKE 1 TABLET BY MOUTH TWICE DAILY WITH MORNING MEAL AND WITH EVENING MEAL 180 Tablet 05/30/20 22 Active Gabapentin 100 MG Oral Capsule (Neurontin)Indica tions:DM type 2 with diabetic peripheral neuropathy (HCC) [...] 23 Active Terazosin HCl 2 MG Oral CapsuleIndication s:Paroxysmal atrial fibrillation (HCC),Atrial flutter (HCC),HTN, goal below 140/90 Take 1 capsule by mouth once daily at bedtime 90 Capsule 3 05/22/20 23 Active cloNIDine HCl 0.3 MG Oral TabletIndications :HTN, goal below 140/90,Essential hypertension, benign Take 1 tablet by mouth twice daily 180 Tablet 3 05/22/20 23 Active Additional Information Patient taking differently: Takes at 1200 at in evening, Reported on 08/18/2023 Dabigatran Etexilate Mesylate 150 MG Oral Capsule (Pradaxa)Indicati ons:Paroxysmal atrial fibrillation (HCC) Take 1 capsule by mouth twice daily 180 Capsule 1 06/01/20 23 Active Victoza 18 MG/3ML Subcutaneous Solution Pen-injector (Liraglutide)Barb cations:Type 2 diabetes mellitus with hemoglobin A1c goal of less than 8.0% (HCC) INJECT 1.8 MG SUBCUTANEOUSLY ONCE DAILY 9 mL 3 05/30/20 23 Active Levothyroxine Sodium 75 MCG Oral Tablet (Levoxyl)Indicati ons:Hypothyroidis m, unspecified type TAKE 1 TABLET BY MOUTH IN THE MORNING (AT LEAST 30 MINUTES PRIOR TO BREAKFAST OR OTHER MEDS) 90 Tablet 3 06/24/19 24 Active Metoprolol Succinate ER 25 MG Oral Tablet Extended Release 24 Hour (toPROL XL)Indications:HT N, goal below 140/90,Permanent atrial fibrillation (HCC) Take [...] 08/05/19 24 Active Vitamin D 50 MCG (1999 UT) Oral CapsuleIndication s:Vitamin D deficiency Take 2,000 Units by mouth in the morning. 90 Capsule 08/21/19 24 Active Torsemide 20 MG Oral Tablet (Demadex)Indicati ons:HTN, goal below 140/90,Permanent atrial fibrillation (HCC) Take 2 tablets by mouth twice daily 360 Tablet 3 08/25/19 24 Active Zolpidem Tartrate 10 MG Oral Tablet (Ambien) TAKE 1 TABLET BY MOUTH ONCE DAILY AT BEDTIME NEEDED FOR SLEEP 30 Tablet 5 09/08/19 24 Active Pantoprazole Sodium 40 MG Oral Tablet Delayed Release (Protonix) TAKE 1 TABLET BY MOUTH TWICE DAILY . DO NOT CUT, CRUSH OR CHEW 180 Tablet 2 09/24/19 24 Active Insulin Glargine Solostar 100 UNIT/ML Subcutaneous Solution Pen-injectorIndic ations:Type 2 diabetes mellitus with hemoglobin A1c goal of less than 8.0% ([facility]) Inject 75 Units under the skin every night at bedtime. E11.9 60 mL 5 10/01/19 24 Active Zoster Vac Recomb Adjuvanted 50 MCG/0.5ML Intramuscular Suspension Reconstituted (Shingrix)Indicat ions:Need for vaccination for zoster Inject 0.5 mL into a large muscle now and repeat dose in 60 to 180 days 1 Each 10/19/19 24 Active Allopurinol 300 MG Oral Tablet (Zyloprim)Indicat ions:Chronic gout without tophus, unspecified cause, unspecified site Take 1 Tablet by mouth in the morning. 30 Tablet 1 10/19/19 24 Active Vitamin D (Ergocalciferol) 1.25 MG (42883 UT) Oral Capsule (Drisdol) Take 1 Capsule by mouth once a week. 6 Capsule 11/04/19 24 Active Spironolactone 25 MG Oral Tablet (Aldactone)Indica tions:HTN, goal below 140/90 TAKE 1/2 (ONE-HALF) TABLET BY MOUTH IN THE MORNING 45 Tablet 3 11/18/19 24 Active Spironolactone 25 MG Oral Tablet (Aldactone)Indica tions:HTN, goal below 140/90 Take 0.5 Tablets by mouth in the morning. 45 Tablet 3 11/26/19 23 024 Discontinued documented as of this encounter (statuses as of 11/18/2023) Active Problems Problem Noted Date Diagnosed Date [...] less than 8.0% 07/06/2002 Overview: 6 <7. 214 a1c 8.2 06/03 a1c 7.7 02/01 a1c 7.5 on insulin ICD-10 update of inactive term documented as of this encounter (statuses as of 11/18/2023) Resolved Problems Problem Noted Date Diagnosed Date [...] 10/26/2013 10/23/2016 Overview: 11/02 CT sinus/brain at [facility] shows left maxillary sinusitis. S/p [...] as of this encounter (statuses as of 11/18/2023) Immunizations Name Administration Dates Next Due COVID-19 mRNA, LNP-s, No Pre serve, 2-Dose Series ([employer]) 10/10/2021,02/26/2021,09/10/2020,08/15 Covid-19, Mrna, Lnp-s, Pf, B ivalent, 30 Mcg, IM, 12 yrs and above ([employer]) 03/13/2022 Hepatitis B, 20+ yrs 07/05/2015,01/16/2014,12/13 Pneumococcal [...] as of this encounter Miscellaneous Notes * Telephone Encounter - Farrukh Eric PA-C - 11/18/2023 1:45 PM EDT Signed Prescriptions: Disp Refills Spironolactone 25 MG Oral Tablet (Aldacton*45 Tab*3 Sig: TAKE 1/2 (ONE-HALF) TABLET BY MOUTH IN THE MORNING Authorizing Provider: FARRUKH ERIC * Telephone Encounter - Yadira Goldsmith CMA - 11/18/2023 10:47 AM EDTPending Prescriptions: Disp Refills Spironolactone 25 MG Oral Tablet (Aldacton*45 Tab*3 Sig: TAKE 1/2 (ONE-HALF) TABLET BY MOUTH IN THE MORNING * Telephone Encounter - Yadira Goldsmith CMA - 11/18/2023 10:47 AM EDT Did you pend patient's preferred pharmacy and medication before forwarding?yes Pharmacy: [facility] [address] [place] [address] Pending Prescriptions: Disp Refills Spironolactone 25 MG Oral Tablet (Aldacto*45 Tab*3 Sig: TAKE 1/2 (ONE-HALF) TABLET BY MOUTH IN THE MORNING Last Visit: 08/05/2023 (in office), Visit date not found (telemedicine) Next Visit: Visit date not found If no future appointments scheduled, and last appointment is greater than a year ago, please schedule patient for a follow-up appointment Last date the medication was ordered: 11-25-2022 Is this request for a controlled substance?No Urine Drug Screen:No results found. However, due to the size of the patient record, not all encounters were searched. Please check Results Review for a complete set of results. Patient Phone Numbers Labs: Lab Results Component Value Date/Time CREAT 1.5 (H) 10/19/2023 11:31 AM CREAT 1.6 (H) 04/24/2020 10:16 AM POTASSIUM 4.3 10/19/2023 11:31 AM POTASSIUM 4.6 04/24/2020 10:16 AM TSH 1.50 10/19/2023 11:31 AM TSH 2.25 12/26/2019 09:17 AM LDLCALC 82 05/21/2023 08:27 AM LDLCALC 72 12/26/2019 09:17 AM LDLDIRECT NOT APPLICABLE 12/26/2019 09:17 AM LDLDIRECT 128 12/05/2005 01:22 PM ALT 23 05/21/2023 08:27 AM ALT 30 03/09/2020 03:40 PM HGBA1C 8.3 (H) 10/19/2023 11:31 AM HGBA1C 6.5 (H) 12/26/2019 09:17 AM documented in this encounter Plan of Treatment Upcoming Encounters Date Type Department Care Team (Late st Contact Info) Description 02/29/2024 10:45 AM EDT Office Visit Dermatology [facility] [address] [facility] [place] [address] Adonis Kilgore MD [address] [facility] [place] [address] 04/22/2024 10:20 AM EDT Office Visit [facility] [address] [place] [address] Yo Paulino CRNP [address] [place] [address] 10/26/2024 10:00 AM EDT Office Visit [facility] [address] [place] [address] Vishnu Allison MD [address] [place] [address] Scheduled Procedures Name Priority Associated Diagnoses Date/Ti me COLONOSCOPY FLEXIBLE PROXIMA L DIAGNOSTIC Recall History of colonic polyps Health Maintenance Due Date Last Done Comments DXA Scan 1948 Zoster Vaccines (2 of 3) 07/25/2013 05/30/2013 COVID-19 Vaccine (6 - season) 2023 03/13/2022, 10/10/2021, 02/26/2021, Additional history exists DTaP,Tdap,and Td Vaccines (2 - Td or Tdap) 03/11/2023 03/11/2013 Depression Screening 10/15/2023 10/14/2022 GFR 04/19/2024 10/19/2023, 07/24, 05/21/2023, Additional history exists HbA1c 04/19/2024 10/19/2023, 03/22, 09/12/2022, Additional history exists Diabetic Eye Exam 04/29/2024 04/29/2023, , 01/03/2020, Additional history exists Diabetic Foot Exam 04/29/2024 04/29/2023, 0 01/06/2022, 07/29/2017, Additional history exists CKD HGB USE SMARTSET 53708 05/21/202405/21, 09/12/2022, 02/06/2022, Additional history exists Albumin/Creatinine Ratio 10/18/2024 024, 09/12/2022, 02/06/2022, Additional history exists B-12 10/18/2024 10/19/2023, 08/21, 09/23/2021, Additional history exists CKD PHOS USE SMARTSET 75783 10/18/202409/21, 08/18/2023, 04/09/2023, Additional history exists TSH [...] as of this encounter Visit Diagnoses Diagnosis HTN, goal below 140/90 Unspecified essential hypertension documented in this encounter Advance Directives * [...] Power of Attor neetu? No Care Teams Private Detective Relationship Specialty Start Date End Date Vishnu Allison MD [address] [place] [address] PCP - General Family Medicine 06/02/14 documented as of this encounter
--- OUTSIDE RECORDS SUMMARY | 2023-12-03 10:49 | External Medical Summary | Summary of Care ---
Author Name Unknown Organization [facility] Address [address] [place] [address] Phone [phone] Care Team Providers Care Operations Superintendent Name Role Phone Vishnu Allison MD Primary Care Provider + Reason for Visit * Reason Comments Outpatient Testing Encounter Details Date Type Department Care Team (Late st Contact Info) Description 10/19/2023 11:50 AM EDT Laboratory Laboratory, [facility] [address] [place] [address] [facility] [address] [place] [address] [employer] Other*[id number]; Type 2 diabetes mellitus with hemoglobin A1c goal of less than 8.0% (HCC); Encounter for long-term (current) use of medications; Idiopathic hypothyroidism; Chronic kidney disease, unspecified CKD stage; DM type 2 with diabetic peripheral neuropathy ([facility]); Elevated ferritin; Chronic gout without tophus, unspecified cause, unspecified site; Hyperparathyroidism ([facility]) Allergies Active Allergy Reactions Criticality Noted Date Comments Amiodarone Rash 10/08/2018 Sildenafil Citrate 06/20/2014 Severe SPAULDING, flushed feeling Simvastatin 12/05/2005 Myalgias arthralgias documented as of this encounter (statuses as of 10/19/2023) Medications Medication Sig Dispensed Refills Start Date [...] 24 hours 12 Tab 5 0 Active Additional Information Patient not taking.Reported on 08/18/2023 Blood Glucose Monitoring Suppl (ACCU-CHEK JASKARAN PLUS) w/Device KIT TEST BLOOD SUGAR EVERY DAY 1 Kit 0 0 Active Glucose Blood (ACCU-CHEK JASKARAN PLUS) [...] TWICE DAILY TO LEGS 80 g 0 1 Active Additional Information Patient not taking.Reported on 08/05/2023 Nystatin-Triamcino lone 323646-7.1 UNIT/GM-% External Cream (Mycolog)Indicatio ns:Cutaneous candidiasis APPLY [...] AND WITH EVENING MEAL 180 Tablet 0 2 Active Gabapentin 100 MG Oral Capsule (Neurontin)Indicat ions:DM type 2 with diabetic peripheral neuropathy (HCC) TAKE 1 CAPSULE BY MOUTH THREE TIMES DAILY 270 Capsule 3 3 Active Lisinopril 20 MG Oral Tablet (Prinivil) Take 1 tablet by mouth once daily 90 Tablet 3 3 Active Additional Information Patient taking differently: Takes in evening, Reported on 08/18/2023 Spironolactone 25 MG Oral Tablet (Aldactone)Indicat ions:HTN, goal below 140/90 Take 0.5 Tablets by mouth in the morning. 45 Tablet 3 3 Active Jardiance 10 MG Oral Tablet (Empagliflozin) [...] mouth in the morning. 90 Capsule 0 4 Active Torsemide 20 MG Oral Tablet [...] 180 days 1 Each 1 4 Active Pfcwotg-Wwnhcs-Lcy ll Pertussis 5-2.5-18.5 LF-MCG/0.5 Suspension Prefilled Syringe (Boostrix)Indicati ons:Need for diphtheria-tetanus -pertussis (Tdap) vaccine Inject 0.5 mL into a large muscle once for 1 dose. 0.5 mL 0 4 10/19/19 24 Active Allopurinol 300 MG Oral Tablet (Zyloprim)Indicati ons:Chronic gout without tophus, unspecified cause, unspecified site Take 1 Tablet by mouth in the morning. 30 Tablet 1 4 Active documented as of this encounter (statuses as of 10/19/2023) Active Problems Problem Noted Date Diagnosed Date [...] 01/12/2013 Overview: --Liz Need decrease dose ambien. 01/07 nuclear stress. Normal EF. 09/07 stop [...] goal of less than 8.0% 07/06/2002 Overview: 12/03 <7. 2 a1c 8.2 06/03 a1c 7.7 02/01 a1c 7.5 on insulin ICD-10 update of inactive term documented as of this encounter (statuses as of 10/19/2023) Resolved Problems Problem Noted Date Diagnosed Date [...] 10/26/2013 10/23/2016 Overview: 11/02 CT sinus[facility] shows left maxillary sinusitis. [...] as of this encounter (statuses as of 10/19/2023) Immunizations Name Administration Dates Next Due COVID-19 mRNA, LNP-s, No Pre serve, 2-Dose Series ([employer]) 10/10/2021,02/26/2021,09/10/2020,08/15 Covid-19, Mrna, Lnp-s, Pf, B ivalent, 30 Mcg, IM, 12 yrs and above ([employer]) 03/13/2022 Hepatitis B, 20+ yrs 07/05/2015,01/16/2014,12/13 Pneumococcal [...] on file documented as of this encounter Plan of Treatment Upcoming Encounters Date Type Department Care Team (Late st Contact Info) Description 02/29/2024 10:45 AM EDT [facility] [address] [facility] [place] [address] Adonis Kilgore MD [address] [facility] [place] [address] 04/22/2024 10:20 AM EDT Office Visit [facility] [address] [place] [address] Yo Paulino CRNP [address] [place] [address] 10/26/2024 10:00 AM EDT Office Visit [facility] [address] [place] [address] Vishnu Allison MD [address] [facility] [place] [address] Pending Results Name Type Priority Associated Diagnoses Date /Time MYCODE SUBSEQUENT ADULT Lab Routine MyCode Research Other*[id number] 10/19/2023 11:31 AM EDT BASIC METABOLIC PANEL Lab Routine Type 2 diabetes mellitus with hemoglobin A1c goal of less than 8.0% ([facility]) 10/19/2023 11:31 AM EDT VITAMIN B12 Lab Routine Encounter for long-term (current) use of medications 10/19/2023 11:31 AM EDT MAGNESIUM Lab Routine Encounter for long-term (current) use of medications 10/19/2023 11:31 AM EDT TSH WITH FREE T4 IF INDICATED Lab Routine Idiopathic hypothyroidism 10/19/2023 11:31 AM EDT PHOSPHORUS Lab Routine Chronic kidney disease, unspecified CKD stage 10/19/2023 11:31 AM EDT HEMOGLOBIN A1C Lab Routine DM type 2 with diabetic peripheral neuropathy ([facility]) 10/19/2023 11:31 AM EDT FERRITIN Lab Routine Elevated ferritin 10/19/2023 11:31 AM EDT URIC ACID Lab Routine Chronic gout without tophus, unspecified cause, unspecified site 10/19/2023 11:31 AM EDT PTH Lab Routine Hyperparathyroidism ([facility]) 10/19/2023 11:31 AM EDT MYCODE SST1 Lab Routine [employer] Other*[id number] 10/19/2023 11:31 AM EDT MYCODE SST2 Lab Routine [employer] Other*[id number] 10/19/2023 11:31 AM EDT ALBUMIN / CREATININE RATIO, URINE Lab Routine DM type 2 with diabetic peripheral neuropathy (HCC) 10/19/2023 11:36 AM EDT Scheduled Procedures Name Priority Associated Diagnoses Date/Ti me COLONOSCOPY FLEXIBLE PROXIMA L DIAGNOSTIC Recall History of colonic polyps Health Maintenance Due Date Last Done Comments DXA Scan 1948 Zoster Vaccines (2 of 3) 07/25/2013 05/30/2013 COVID-19 Vaccine ( season) 2023 03/13/2022, 10/10/2021, 02/26/2021, Additional history exists DTaP,Tdap,and Td Vaccines (2 - Td or Tdap) 03/11/2023 03/11/2013 Albumin/Creatinine Ratio 09/13/2023 023, 02/06/2022, 11/09/2020, Additional history exists B-12 09/13/2023 09/12/2022, 04/0 09/2021, 12/18/2020, Additional history exists HbA1c 10/09/2023 04/09/2023, 08/21, 02/06/2022, Additional history exists Depression Screening 10/15/2023 10/14/2022 GFR 02/16/2024 08/18/2023, 04/24, 04/09/2023, Additional history exists Diabetic Eye Exam 04/29/2024 04/29/2023, , 01/03/2020, Additional history exists Diabetic Foot Exam 04/29/2024 04/29/2023, 0 01/06/2022, 07/29/2017, Additional history exists CKD HGB USE SMARTSET 28778 05/21/202405/21, 09/12/2022, 02/06/2022, Additional history exists TSH 05/21/2024 05/21/2023, 2 09/2022, 02/06/2022, Additional history exists CKD PHOS USE SMARTSET 66644 08/18/202407/24, 04/09/2023, 02/06/2022, Additional history exists Colonoscopy Discontinued 03/28/2013, 03/28/2013 [...] as of this encounter Visit Diagnoses Diagnosis [employer] Other*[id number] Type 2 diabetes mellitus with hemoglobin A1c goal of less than 8.0% (HCC) Encounter for long-term (current) use of medications Encounter for long-term (current) use of other medications Idiopathic hypothyroidism Chronic kidney disease, unspecified CKD stage DM type 2 with diabetic peripheral neuropathy (HCC) Type II or unspecified type diabetes mellitus with neurological manifestations, not stated as uncontrolled Elevated ferritin Other abnormal blood chemistry Chronic gout without tophus, unspecified cause, unspecified site Hyperparathyroidism (HCC) Hyperparathyroidism, unspecified documented in this encounter Advance Directives Latest [...] the patient have Health Care Power of Certified Dialysis Technician? No Care Teams Operations Superintendent Relationship Specialty Start Date End Date Vishnu Allison MD [address] [place] [address] PCP - General Family Medicine 06/02/14 documented as of this encounter
--- OUTSIDE RECORDS SUMMARY | 2023-12-03 10:49 | External Medical Summary | Summary of Care ---
Author Name Unknown Organization [facility] Address [address] [place] [address] Phone [phone] Care Team Providers Care Pmo Lead Name Role Phone Vishnu Allison MD Primary Care Provider + Reason for Visit * Reason Onset Date Comments Physical-Exam CPE Immunizations 10/19/2023 Shingrix Immunizations 10/19/2023 Encounter Details Date Type Department Care Team (Late st Contact Info) Description 10/19/2023 10:40 AM EDT Office Visit Family Practice [facility] [address] [place] [address] Vishnu Allison MD [address] [place] [address] DM type 2 with diabetic peripheral neuropathy (HCC)*; Need for vaccination for zoster; Need for bqsowcgran-ucobxuj-tp rtussis (Tdap) vaccine; Elevated ferritin; Chronic gout without tophus, unspecified cause, unspecified site; Hyperparathyroidism (HCC); Screening for malignant neoplasm of colon; Screen for colon cancer; Chronic systolic heart failure (HCC) Allergies Active Allergy Reactions Criticality Noted Date Comments Amiodarone Rash 10/08/2018 Sildenafil Citrate 06/20/2014 Severe SPAULDING, flushed feeling Simvastatin 12/05/2005 Myalgias arthralgias documented as of this encounter (statuses as of 10/31/2023) Medications Medication Sig Dispensed Refills Start Date End Date Status Insulin Syringe-Needle U-100 (BD INSULIN SYRINGE ULTRAFINE) 30G X 1/2" 1 ML MISC USE DIRECTED 1 Box Dosing Unit 5 7 Active Magnesium Oxide 400 MG TabletIndications :Paroxysmal [...] 2 9 Active SUMAtriptan (IMITREX) 50 MG TabletIndications :Migraine [...] Patient not taking.Reported on 08/05/2023 Nystatin-Triamcin olone 590267-8.1 UNIT/GM-% External Cream (Mycolog)Indicati ons:Cutaneous candidiasis APPLY [...] 1 Active Fluticasone Propionate 50 MCG/ACT Nasal SuspensionIndicat [...] 2 Active Gabapentin 100 MG Oral Capsule (Neurontin)Indica tions:DM type 2 with diabetic peripheral neuropathy (HCC) TAKE 1 CAPSULE BY MOUTH THREE TIMES DAILY 270 Capsule 3 3 Active Lisinopril 20 MG Oral Tablet (Prinivil) Take 1 tablet by mouth once daily 90 Tablet 3 3 Active Additional Information Patient taking differently: Takes in evening, Reported on 08/18/2023 Spironolactone 25 MG Oral Tablet (Aldactone)Indica tions:HTN, goal below 140/90 Take 0.5 Tablets by mouth in the morning. 45 Tablet 3 3 Active Jardiance 10 MG Oral Tablet (Empagliflozin) Take 1 tablet by mouth once daily 90 Tablet 3 3 Active Terazosin HCl 2 MG Oral CapsuleIndication s:Paroxysmal atrial fibrillation (HCC),Atrial flutter (HCC),HTN, goal below 140/90 Take 1 capsule by mouth once daily at bedtime 90 Capsule 3 3 Active cloNIDine HCl 0.3 MG Oral TabletIndications [...] Vitamin D 50 MCG (2000 UT) Oral CapsuleIndication s:Vitamin D deficiency Take 2,000 Units by mouth in the morning. 90 Capsule 0 4 Active Torsemide 20 MG Oral Tablet (Demadex)Indicati [...] 4 Active Allopurinol 300 MG Oral Tablet (Zyloprim)Indicat ions:Chronic gout without tophus, unspecified cause, unspecified site Take 1 Tablet by mouth in the morning. 30 Tablet 1 4 Active Allopurinol 300 MG Oral Tablet (Zyloprim)Indicat ions:Gout Take 1 tablet by mouth once daily 30 Tablet 0 4 10/19/19 24 Discontinu ed(Refill) Hnonfqp-Bvegqe-Zf ell Pertussis 5-2.5-18.5 LF-MCG/0.5 Suspension Prefilled Syringe (Boostrix)Indicat ions:Need for diphtheria-tetanu s-pertussis (Tdap) vaccine Inject 0.5 mL into a large muscle once for 1 dose. 0.5 mL 0 4 10/19/19 24 documented as of this encounter (statuses as of 10/31/2023) Active Problems Problem Noted Date Diagnosed Date [...] as of this encounter (statuses as of 10/31/2023) Resolved Problems Problem Noted Date Diagnosed Date [...] 10/26/2013 10/23/2016 Overview: 11/02 CT sinus/brain at [facility] shows left maxillary sinusitis. S/p amox, given [...] as of this encounter (statuses as of 10/31/2023) Immunizations Name Administration Dates Next Due COVID-19 mRNA, LNP-s, No Pre serve, 2-Dose Series ([employer]) 10/10/2021,02/26/2021,09/10/2020,08/15 Covid-19, Mrna, Lnp-s, Pf, B ivalent, [...] Sign Reading Time Taken Comments Blood Pressure 118/82 10/19/2023 10:50 AM EDT Pulse 120 10/19/2023 10:50 AM EDT Temperature 37.1 C (98.8 F) 10/19/2023 1 0:50 AM EDT Respiratory Rate - - Oxygen Saturation 96% 10/19/2023 10: 50 AM EDT Inhaled Oxygen Concentration - - Weight 117.4 kg (258 lb 12.8 oz) 2023 10:50 AM EDT Height - - Body Mass Index 34.62 04/29/2023 10:46 AM EST documented in this encounter Patient Instructions * Patient Instructions* Radha Vazquez LPN - 10/19/2023 10:49 AM EDT ~~PATIENT INSTRUCTIONS FOR SHINGRIX VACCINE~~ Possible side effects of Shingrix vaccine, (shingles), are usually mild and can include: 1. Soreness or redness at injection site 2. Low grade fever 3. Body aches You may use a fever / pain reducing medication as needed for these symptoms. LET YOUR DOCTOR KNOW IMMEDIATELY IF YOU HAVE DIFFICULTY BREATHING OR SWALLOWING, EXPERIENCE ITCHINGOF FEET OR HANDS, HAVE SWELLING OF EYES, FACE OR INSIDE OF NOSE. ~~PATIENT INSTRUCTIONS FOR TDAP VACCINE~~ Possible side effects of TDAP vaccine, (tetanus shot), are usually mild and can include: 1. Soreness or redness at injection site 2. Low grade fever 3. Body aches You may use a fever / pain reducing medication as needed for these symptoms. LET YOUR DOCTOR KNOW IMMEDIATELY IF YOU HAVE DIFFICULTY BREATHING OR SWALLOWING, EXPERIENCE ITCHINGOF FEET OR HANDS, HAVE SWELLING OF EYES, FACE OR INSIDE OF NOSE. documented in this encounter Progress Notes * Vishnu Allison MD - 10/19/2023 11:26 AM EDT SUBJECTIVE: Renan Harris is a 73 year old male here for Physical-Exam (CPE ), Immunizations (Shingrix), and Immunizations . Here for annual Doing well overall No fever, chills, chest pain, shortness of breath, headache, nausea, vomit, diarrhea, constipation or vision changes Apprec renal, cards consults. Recently restart allopurinol & vit D. Physical: BP 118/82 | Pulse 120 | Temp 37.1 C (98.8 F) | Wt 117.4 kg (258 lb 12.8 oz) | SpO2 96% | BMI 34.62 kg/m | BSA 2.45 m General-No apparent Distress Head, Eyes, Ears, Nose, Throat--Normocephalic, atraumatic Neck-Supple Lymph-no lymphadenopathy Lungs-Clear to Auscultation bilaterally Cardiovascular--Regular rate & Rhythm, +s1, s2, no murmur Abdomen-soft, nontender, nondistended + bowel sounds Extremities--non pitting edema b/l legs, venous stasis dermatitis Neuro-alert & oriented x3 (E11.42) DM type 2 with diabetic peripheral neuropathy (HCC) (primary encounter diagnosis) Plan: HEMOGLOBIN A1C, VITAMIN B12, ALBUMIN / CREATININE RATIO, URINE, BASIC METABOLIC PANEL, HEMOGLOBIN A1C, LIPID PANEL WITH DIRECT LDL IF TG IS HIGH Labs reviewed at goal Cont mgmt (Z23) Need for vaccination for zoster Plan: Zoster Vac Recomb Adjuvanted 50 MCG/0.5ML Intramuscular Suspension Reconstituted (Shingrix) (Z23) Need for rbyiaymhbw-exiwvfe-jqktedfsn (Tdap) vaccine Plan: Sfxxzps-Luluph-Oxasg Pertussis 5-2.5-18.5 LF-MCG/0.5 Suspension Prefilled Syringe (Boostrix) (R79.89) Elevated ferritin Plan: FERRITIN, CBC WITH WBC DIFFERENTIAL AND ANEMIA REFLEX WORKUP Monitor with elev hgb. Suspect likely 2ary KARUNA on CPAP (M1A.9XX0) Chronic gout without tophus, unspecified cause, unspecified site Plan: Allopurinol 300 MG Oral Tablet (Zyloprim), URIC ACID Cont Rx (E21.3) Hyperparathyroidism (HCC) Plan: PTH If remains high with normal Vit D, need Parathyroid scan (Z12.11) Screening for malignant neoplasm of colon Plan: COLOGUARD Declines scope (Z12.11) Screen for colon cancer Plan: (I50.22) Chronic systolic heart failure (HCC) Plan: improved EF. F/u cards. I spent a total of 40-54 minutes (exact time 44 mins) on the date of service in preparation, delivery, and documentation of the care provided to Renan Harris excluding any time spent in the performance of separately billed services. (This note was completed using the dictation program Fluency Direct. As such, there may be misspellings, word substitutions, or other variations that should not change the essence of the clinical content of this encounter note.If there is need for further clarification, please direct questions to the provider listed above.) Vishnu Allison MD * Radha Vazquez LPN - 10/19/2023 10:49 AM EDT Radha Vazquez LPN documented in this encounter Nursing Notes * Radha Vazquez LPN - 10/19/2023 10:47 AM EDT The patient has been properly identified by confirmation of name and date of . Chief Complaint Patient presents with Physical-Exam CPE Glucose averaging 90-150s. Pt is overall doing well. Last colonoscopy at [facility] close to 5 yrs ago. documented in this encounter Plan of Treatment Upcoming Encounters Date Type Department Care Team (Late st Contact Info) Description 02/29/2024 10:45 AM EDT Office Visit Dermatology [facility] [address] [place] [address] Adonis Kilgore MD [address] [place] [address] 04/22/2024 10:20 AM EDT Office Visit Family [facility] [address] [facility] [place] [address] Yo Paulino CRNP [address] [place] [address] 10/26/2024 10:00 AM EDT Office Visit Family Practice [facility] [address] [place] [address] Vishnu Allison MD [address] [place] [address] Scheduled Orders Name Type Priority Associated Diagnoses Orde r Schedule BASIC METABOLIC PANEL Lab Routine DM type 2 with diabetic peripheral neuropathy (HCC) Expected: 04/19/2024 (Approximate), Expires: 10/18/2024 HEMOGLOBIN A1C Lab Routine DM type 2 with diabetic peripheral neuropathy (HCC) Expected: 04/19/2024 (Approximate), Expires: 10/18/2024 LIPID PANEL WITH DIRECT LDL IF TG IS HIGH Lab Routine DM type 2 with diabetic peripheral neuropathy (HCC) Expected: 04/19/2024 (Approximate), Expires: 10/18/2024 CBC WITH WBC DIFFERENTIAL AND ANEMIA REFLEX WORKUP Lab Routine Elevated ferritin Expected: 04/19/2024 (Approximate), Expires: 10/18/2024 Scheduled Procedures Name Priority Associated Diagnoses Date/Ti [...] Additional history exists CKD HGB USE SMARTSET 81293 05/21/202405/21, 09/12/2022, 02/06/2022, Additional history exists Albumin/Creatinine Ratio 10/18/2024 024, 09/12/2022, 02/06/2022, Additional history exists B-12 10/18/2024 10/19/2023, 08/21, 09/23/2021, Additional history exists CKD PHOS USE SMARTSET 02303 10/18/202409/21, 08/18/2023, 04/09/2023, Additional history exists TSH [...] Not on filedocumented as of this encounter Procedures Procedure Name Priority Date/Time Associated Diagnosis Comments COLOGUARD Unrestricted Lab 10/21/2023 4:00 PM EDT Screening for malignant neoplasm of colon documented in this encounter Results * COLOGUARD (10/21/2023 4:00 PM EDT) COLOGUARD Negative Negative [facility] [employer] [facility] (CLIA #:[id number]) Comment: NEGATIVE TEST RESULT. A negative Cologuard result indicates a low likelihood that a colorectal cancer (CRC) or advanced adenoma (adenomatous polyps with more advanced pre-malignant features) is present. The chance that a person with a negative Cologuard test has a colorectal cancer is less than 1 in 1500 (negative predictive value >99.9%) or has an advanced adenoma is less than 5.3% (negative predictive value 94.7%). These data are based on a prospective cross-sectional study of 10,000 individuals at average risk for colorectal cancer who were screened with both Cologuard and colonoscopy. (Belen Carias et al, N Engl J Med 2014;370(14):1286- 1297) The normal value (reference range) for this assay is negative. COLOGUARD RE-SCREENING RECOMMENDATION: Periodic colorectal cancer screening is an important part of preventive healthcare for asymptomatic individuals at average risk for colorectal cancer. Following a negative Cologuard result, the British Cancer Society and U.S. Multi-Society Task Force screening guidelines recommend a Cologuard re-screening interval of 3 years. References: British Cancer Society Guideline for Colorectal Cancer Screening: https://www.cancer.org/cancer/ikvop-ymdihq-moobzp/bzmavowfl-dyhbdpnaa-aqxufeb/ac s-rec ommendations.html.; Eddie ALCANTARA, Ze COE, Debbie MurilloK, Colorectal Cancer Screening: Recommendations for Physicians and Patients from the U.S. Multi-Society Task Force on Colorectal Cancer Screening , Am J Gastroenterology 2017; 112:6822-9744. TEST DESCRIPTION: Composite algorithmic analysis of stool DNA-biomarkers with hemoglobin immunoassay. Quantitative values of individual biomarkers are not reportable and are not associated with individual biomarker result reference ranges. Cologuard is intended for colorectal cancer screening of adults of either sex, 45 years or older, who are at average-risk for colorectal cancer (CRC). Cologuard has been approved for use by the U.S. FDA. The performance of Cologuard was established in a cross sectional study of average-risk adults aged 50-84. Cologuard performance in patients ages 45 to 49 years was estimated by sub-group analysis of near-age groups. Colonoscopies performed for a positive result may find as the most clinically significant lesion: colorectal cancer [4.0%], advanced adenoma (including sessile serrated polyps greater than or equal to 1cm diameter) [20%] or non- advanced adenoma [31%]; or no colorectal neoplasia [45%]. These estimates are derived from a prospective cross-sectional screening study of 10,000 individuals at average risk for colorectal cancer who were screened with both Cologuard and colonoscopy. (Belen Malloy al, N Engl J Med 2014;370(14):4840-3665.) Cologuard may produce a false negative or false positive result (no colorectal cancer or precancerous polyp present at colonoscopy follow up). A negative Cologuard test result does not guarantee the absence of CRC or advanced adenoma (pre-cancer). The current Cologuard screening interval is every 3 years. (British Cancer Society and U.S. Multi-Society Task Force). Cologuard performance data in a 10,000 patient pivotal study using colonoscopy as the reference method can be accessed at the following location: www.[employer]/results. Additional description of the Cologuard test process, warnings and precautions can be found at www.[employer].com. Stool 10/21/2023 4:00 PM EDT 10/23/2023 11:09 AM EDT Vishnu Allison MD LAB FLUID AND ST O ORDERABLES Performing Organization Address City/State/[facility] Co de Phone Number [employer] [address], [address] [place], [place] [address] [employer] (CLIA #:[id number]) [address] [place] [address] * (ABNORMAL) ALBUMIN / CREATININE RATIO, URINE (10/19/2023 11:36 AM EDT) Albumin, Random Urine 2.43 mg/dL 10/19/2023 5:[address] [facility] Creatinine, Random Urine 64 mg/dL 10/19/2023 5:[address] [facility] Albumin / Creatinine Ratio, Urine 38(H) <30 mg/g Creat 10/19/2023 5:[address] [facility] Urine Urine specimen obtained by clean catch procedure / Unknown Non-blood Collection / Unknown 10/19/2023 11:36 AM EDT 10/19/2023 11:36 AM EDT Narrative [facility]ATORY [facility] - 10/19/2023 5:39 PM EDT Normal: <30 mg/g creatinine High: 30-300 mg/g creatinine Very High: >300 mg/g creatinine Nephrotic: >2200 mg/g creatinine Vishnu Allison MD LAB URINE ORDERA BLES Performing Organization Address City/[facility]/ZIP Co de Phone Number LABORATORY [facility] [address] [place] [address] * (ABNORMAL) PTH (10/19/2023 11:31 AM EDT) PTH 85(H) 15 - 65 pg/mL 10/19/2023 8:[address] [facility] Blood Venous blood specimen / Unknown Venipuncture / Unknown 10/19/2023 11:31 AM EDT 10/19/2023 11:31 AM EDT Vishnu Allison MD LAB BLOOD ORDERA BLES Performing Organization Address [facility] Co de Phone Number LABORATORY [facility] [address] [place] [address] * URIC ACID (10/19/2023 11:31 AM EDT) Uric Acid 5.5 3.4 - 7.0 mg/dL 10/19/2023 8:[address] [facility] Blood Venous blood specimen / Unknown Venipuncture / Unknown 10/19/2023 11:31 AM EDT 10/19/2023 11:31 AM EDT Vishnu Allison MD LAB BLOOD ORDERA BLES Performing Organization Address City/[facility]/ZIP Co de Phone Number LABORATORY [facility] [address] [place] [address] * FERRITIN (10/19/2023 11:31 AM EDT) Ferritin 250 30 - 400 ng/mL 10/19/2023 8:[address] [facility] Blood Venous blood specimen / Unknown Venipuncture / Unknown 10/19/2023 11:31 AM EDT 10/19/2023 11:31 AM EDT Vishnu Allison MD LAB BLOOD ORDERA BLES Performing Organization Address [facility] de Phone Number LABORATORY [facility] [address] [place] [address] * (ABNORMAL) HEMOGLOBIN A1C (10/19/2023 11:31 AM EDT) Pathologist [facility] Hemoglobin A1C 8.3(H) 4.0 - 5.6 % 10/19/2023 7:[address] [facility] Comment:The use of HbA1c to monitor glycemic status is based on normal hemoglobin and HbA composition. This test should not be used in patients with abnormal hemoglobin that affects the half life of the red blood cell or the in vivo glycation rates. Estimated Average Glucose 192(H) <126 mg/dL 10/19/2023 7:[address] [facility] Blood Venous blood specimen / Unknown Venipuncture / Unknown 10/19/2023 11:31 AM EDT 10/19/2023 11:31 AM EDT Vishnu Allison MD LAB BLOOD ORDERA BLES Performing Organization Address [facility] de Phone Number LABORATORY [address] [address] documented in this encounter Visit Diagnoses Diagnosis DM type 2 with diabetic peripheral neuropathy (HCC)- Primary Type II or unspecified type diabetes mellitus with neurological manifestations, not stated as uncontrolled Need for vaccination for zoster Need for prophylactic vaccination and inoculation against other viral diseases Need for qieajsddfi-fmaokxj-nbagkjwyx (Tdap) vaccine Need for prophylactic vaccination with combined lxjgeytljc-pufzwxt-ovohxcori (DTP) vaccine Elevated ferritin Other abnormal blood chemistry Chronic gout without tophus, unspecified cause, unspecified site Hyperparathyroidism (HCC) Hyperparathyroidism, unspecified Screening for malignant neoplasm of colon Screen for colon cancer Special screening for malignant neoplasms, colon Chronic systolic heart failure (HCC) Chronic systolic heart failure documented in this encounter Advance Directives Latest [...] the patient have Health Care Power of Clean Up Helper Banquet? No Care Teams Pmo Lead Relationship Specialty Start Date End Date Vishnu Allison MD [address] [facility] [place] [address] PCP - General Family Medicine 06/02/14 documented as of this encounter
--- OUTSIDE RECORDS SUMMARY | 2023-12-03 10:49 | External Medical Summary | Summary of Care ---
Author Name Unknown Organization [facility] Address [address] [facility] [place] [address] Phone [phone] Care Team Providers Care Farm Tractor Mechanic Name Role Phone Vishnu Allison MD Primary Care Provider + Reason for Visit * Reason Onset Date Comments Test Results 08/21/2023 Encounter Details Date Type Department Care Team (Late st Contact Info) Description 08/21/2023 Telephone Nephrology, [facility] [address] [place] [address] ZemaitisNaomi PA-C [address] [place] [address] Test Results Allergies Active Allergy Reactions Criticality [...] Patient not taking.Reported on 08/05/2023 Nystatin-Triamci nolone 453155-2.1 UNIT/GM-% External Cream (Mycolog)Indicat ions:Cutaneous candidiasis APPLY [...] 24 Active Vitamin D (Ergocalciferol) 1.25 MG (60059 UT) Oral Capsule (Drisdol) Take 1 Capsule by mouth once a week. 6 Capsule 0 11/04/19 24 Active Torsemide 20 MG Oral Tablet (Demadex) Take 2 tablets by mouth twice daily 360 Tablet 11 12/11/19 22 024 Discontinued(Re fill) Levemir 100 UNIT/ML Subcutaneous Solution (insulin Detemir)Indicati ons:Type 2 diabetes mellitus with hemoglobin A1c goal of less than 8.0% ([facility]) Inject 75 Units under the skin at [...] 10/26/2013 10/23/2016 Overview: 11/02 CT sinus/brain at [facility] shows left maxillary sinusitis. S/p [...] mRNA, LNP-s, No Pre serve, 2-Dose Series ([id number]) 10/10/2021,02/26/2021,09/10/2020,08/15 Covid-19, Mrna, Lnp-s, Pf, B ivalent, 30 Mcg, IM, 12 yrs and above ([id number]) 03/13/2022 Hepatitis B, 20+ yrs 07/05/2015,01/16/2014,12/13 Pneumococcal [...] encounter Miscellaneous Notes * Telephone Encounter - Giovanna Mahan LPN - 11/04/2023 12:36 PM EDT [employer] message sent advising of such * Addendum Note - Naomi Arcos PA-C [...] 02/29/2024 10:45 AM EDT Office Visit Dermatology [facility] [address] [place] [address] Adonis Kilgore MD [address] [place] [address] 04/22/2024 10:20 AM EDT Office Visit [facility] [address] [place] [address] Yo Paulino CRNP [address] [place] [address] 10/26/2024 10:00 AM EDT Office Visit Family Practice [facility] [address] [place] [address] Vishnu Allison MD [address] [place] [address] Scheduled Orders Name Type Priority Associated Diagnoses [...] Additional history exists CKD HGB USE SMARTSET 68111 05/21/202405/21, 09/12/2022, 02/06/2022, Additional history exists Albumin/Creatinine Ratio 10/18/2024 024, 09/12/2022, 02/06/2022, Additional history exists B-12 10/18/2024 10/19/2023, 08/21, 09/23/2021, Additional history exists CKD PHOS USE SMARTSET 60144 10/18/202409/21, 08/18/2023, 04/09/2023, Additional history exists TSH [...] the patient have Health Care Power of Vinyl Top Installer? No Care Teams Farm Tractor Mechanic Relationship Specialty Start Date End Date Vishnu Allison MD [address] [place] [address] PCP - General Family Medicine 06/02/14 documented as of this encounter
--- OUTSIDE RECORDS SUMMARY | 2023-12-03 10:50 | External Medical Summary ---
Author Name Unknown Address Unknown Organization [id number]:[facility]ATORY [facility] [address] [place] [address] Laboratory Report Ordering Provider Test Date Status TYRONE FRANCIS 10/19/2023 11:31:30 Final Observation Date Value Abnormality Reference (Units ) Status Ferritin 10/19/2023 11:31:30 250 30-400 (ng /mL) Final Performing Location LABORATORY [facility] - [address] [place] [address]
--- OUTSIDE RECORDS SUMMARY | 2023-12-03 10:50 | External Medical Summary ---
Author Name Unknown Address Unknown Organization [id number]:LABORATORY [facility] [place] [address] [place] [address] Laboratory Report Ordering Provider Test Date Status MERLINE IBARRA 10/19/2023 11:31:30 Final Observation Date Value Abnormality Reference (Units ) Status BUN 10/19/2023 11:31:30 25 Above high normal 6-20 (mg/dL) Final Creatinine 10/19/2023 11:31:30 1.5 Above high normal 0.6-1.2 (mg/dL) Final Glomerular filtration rate/1.73 sq M.predicted [Volume Rate/Area] in Serum, Plasma or Blood by Creatinine-based formula (CKD-EPI) 10/19/2023 11:31:30 50 Below low normal >=60 (mL/min) Final eGFR is calculated based on the CKD-EPI 2020 equation Sodium 10/19/2023 11:31:30 141 135-146 (m mol/L) Final Potassium 10/19/2023 11:31:30 4.3 3.5-5.1 (m mol/L) Final Cl 10/19/2023 11:31:30 103 98-107 (mm ol/L) Final CO2 10/19/2023 11:31:30 24 22-32 (mmo l/L) Final Anion gap 10/19/2023 11:31:30 14 7-15 (mmol /L) Final Glucose 10/19/2023 11:31:30 222 Above high normal 70 -120 (mg/dL) Final Calcium 10/19/2023 11:31:30 10.2 8.4-10.2 ( mg/dL) Final Performing Location LABORATORY [facility] [place] [address] [place] [address]
--- OUTSIDE RECORDS SUMMARY | 2023-12-03 10:50 | External Medical Summary ---
Author Name Unknown Address Unknown Organization K01:LABORATORY [facility] [place] - [address] [place] [address] Laboratory Report Ordering Provider Test Date Status SRINIVAS ALVA 10/19/2023 11:31:30 Final Observation Date Value Abnormality Reference (Units ) Status MYCODE SPECIMEN-SST 10/19/2023 11:31:30 Freezing of extracted DNA, whole blood and/or serum. Final Performing Location LABORATORY C - [address] [place] [address]
--- OUTSIDE RECORDS SUMMARY | 2023-12-03 10:50 | External Medical Summary | Summary of Care ---
Author Name Unknown Organization [facility] Address [address] [place] [address] Phone [phone] Care Team Providers Care Yarn Dry Room Worker Name Role Phone Vishnu Hansen MD Primary Care Provider + Reason for Visit * Reason Onset Date Comments Advice 09/28/2023 Levemir alternat yris Encounter Details Date Type Department Care Team (Late st Contact Info) Description 09/28/2023 Telephone Family Practice [facility] [address] [place] [address] Vishnu Hansen MD [address] [facility] [phone] Advice (Levemir alternative ) Allergies Active Allergy Reactions Criticality Noted Date Comments Amiodarone Rash 10/08/2018 Sildenafil Citrate 06/20/2014 Severe SPAULDING, flushed feeling Simvastatin 12/05/2005 Myalgias arthralgias documented as of this encounter (statuses as of 09/30/2023) Medications Medication Sig Dispensed Refills Start Date [...] hemoglobin A1c goal of less than 8.0% ([facility]) Use daily with insulin. E11.9 100 Box [...] SUGAR EVERY DAY 1 Kit 0 07/14/19 20 Active Glucose Blood (ACCU-CHEK JASKARAN [...] Patient not taking.Reported on 08/05/2023 Nystatin-Triamci nolone 748218-4.1 UNIT/GM-% External Cream (Mycolog)Indicat ions:Cutaneous candidiasis APPLY [...] morning. 90 Capsule 0 08/21/19 24 Active Torsemide 20 MG Oral Tablet (Demadex)Indicat ions:HTN, goal below 140/90,Permanent atrial fibrillation (HCC) Take 2 tablets by mouth twice daily 360 Tablet 3 08/25/19 24 Active Zolpidem Tartrate 10 MG Oral Tablet (Ambien) TAKE 1 TABLET BY MOUTH ONCE DAILY AT BEDTIME NEEDED FOR SLEEP 30 Tablet 5 09/08/19 24 Active Allopurinol 300 MG Oral Tablet (Zyloprim)Indica tions:Gout Take 1 tablet by mouth once daily 30 Tablet 0 09/16/19 24 Active Pantoprazole Sodium 40 MG Oral Tablet Delayed Release (Protonix) TAKE 1 TABLET BY MOUTH TWICE DAILY . DO NOT CUT, CRUSH OR CHEW 180 Tablet 2 09/24/19 24 Active Insulin Glargine Solostar 100 UNIT/ML Subcutaneous Solution Pen-injectorIndi cations:Type 2 diabetes mellitus with hemoglobin A1c goal of less than 8.0% (HCC) Inject 75 Units under the skin every night at bedtime. E11.9 60 mL 5 09/30/19 24 Active Levemir 100 UNIT/ML Subcutaneous Solution (insulin Detemir)Indicati ons:Type 2 diabetes mellitus with hemoglobin A1c goal of less than 8.0% (HCC) INJECT 75 UNITS SUBCUTANEOUSLY AT BEDTIME 20 mL 0 09/17/19 24 024 Discontinued(Fo rmulary/Cost) Insulin Glargine Solostar 100 UNIT/ML Subcutaneous Solution Pen-injectorIndi cations:Type 2 diabetes mellitus with hemoglobin A1c goal of less than 8.0% (HCC) Inject 75 Units under the skin every night at bedtime. 9 mL 5 09/29/19 24 024 Discontinued documented as of this encounter (statuses as of 09/30/2023) Active Problems Problem Noted Date Diagnosed Date [...] goal of less than 8.0% 07/06/2002 Overview: 6/ <7. 214 a1c 8.2 06/03 a1c 7.7 02/01 a1c 7.5 on insulin ICD-10 update of inactive term documented as of this encounter (statuses as of 09/30/2023) Resolved Problems Problem Noted Date Diagnosed Date [...] 10/26/2013 10/23/2016 Overview: 11/02 CT sinus/brain at [facility] shows left maxillary sinusitis. S/p amox, given [...] as of this encounter (statuses as of 09/30/2023) Immunizations Name Administration Dates Next Due COVID-19 mRNA, LNP-s, No Pre serve, 2-Dose Series ([employer]) 10/10/2021,02/26/2021,09/10/2020,08/15 Covid-19, Mrna, Lnp-s, Pf, B ivalent, 30 Mcg, IM, 12 yrs and above ([employer]) 03/13/2022 Hepatitis B, 20+ yrs 07/05/2015,01/16/2014,12/13 Pneumococcal [...] encounter Miscellaneous Notes * Telephone Encounter - Latosha Mahmood CPhT - 09/30/2023 1:06 PM EDT Pharmacy asking for 4 boxes or 60ml for a 90 ds with a diagnosis code , Insurance will only pay forLantus (brand) pharmacy is requesting this be changed to a 90 day supply . Please approve the following modified prescription if appropriate. Did you pend patient's preferred pharmacy and medication before forwarding?yes Pharmacy: [facility] [id number] Signed Prescriptions: Disp Refills Insulin Glargine Solostar 100 UNIT/ML Subc*9 mL 5 Sig: Inject 75 Units under the skin every night at bedtime. Authorizing Provider: VISHNU HANSEN Last Visit: 04/29/2023 (in office), Visit date not found (telemedicine) Next Visit: 10/19/2023 If no future appointments scheduled, and last appointment is greater than a year ago, please schedule patient for a follow-up appointment Last date the medication was ordered: 09/29/23 Is this request for a controlled substance?No Urine Drug Screen:No results found. However, due to the size of the patient record, not all encounters were searched. Please check Results Review for a complete set of results. Patient Phone Numbers Labs: Lab Results Component Value Date/Time CREAT 1.2 08/18/2023 10:58 AM CREAT 1.6 (H) 04/24/2020 10:16 AM POTASSIUM 4.6 08/18/2023 10:58 AM POTASSIUM 4.6 04/24/2020 10:16 AM TSH 3.12 05/21/2023 08:27 AM TSH 2.25 12/26/2019 09:17 AM LDLCALC 82 05/21/2023 08:27 AM LDLCALC 72 12/26/2019 09:17 AM LDLDIRECT NOT APPLICABLE 12/26/2019 09:17 AM LDLDIRECT 128 12/05/2005 01:22 PM ALT 23 05/21/2023 08:27 AM ALT 30 03/09/2020 03:40 PM HGBA1C 6.4 (H) 04/09/2023 09:25 AM HGBA1C 6.5 (H) 12/26/2019 09:17 AM * Telephone Encounter - Vishnu Hansen MD - 09/29/2023 9:29 PM EDT Rx sent, notify patient If pharmacy unable to get to go through, he'll need to call insurance to see what alternative is toLevemir * Telephone Encounter - Apoorva Guzmán LPN - 09/29/2023 2:17 PM EDT No mention, please try lantus solostar please. * Telephone Encounter - Vishnu Hansen MD - 09/29/2023 1:40 PM EDT Did his letter say what are the alternatives? If not, I can send the generic lantus solostar, very similar to Levemir. Or he can call his insurance to find out the preferred alternative * Telephone Encounter - Katherine Newton LPN - 09/28/2023 3:59 PM EDT Called and spoke with Charlie Pt picked up on 09/17/23 and pt paid $15. Called and spoke with pt. Pt received a letter in the mail today that insurance will no longer cover levemir. Letter recommends that pt reach out to PCP office for alternative, prior auth or exemption. Do you want to change to a different medication or have our office submit prior auth? If you want to continue on current medication a new script will need to be sent in * Telephone Encounter - Devyn Robert OSA - 09/28/2023 1:59 PM EDT Pt requesting to speak to a nurse. He stated his insurance will no longer cover Levemir and needs to discuss what he can take as an alternative. Please advise. documented in this encounter Plan of Treatment Upcoming Encounters Date Type Department Care Team (Late st Contact Info) Description 10/19/2023 10:40 AM EDT Office Visit Family Practice [facility] [address] [place] [address] Vishnu Hansen MD [address] [place] [address] 02/29/2024 10:45 AM EDT Office Visit Dermatology [facility] [address] [address] [place] [address] Adonis Kilgore MD [address] [facility] [place] [address] Scheduled Procedures Name Priority Associated Diagnoses Date/Ti me COLONOSCOPY FLEXIBLE PROXIMA L DIAGNOSTIC Recall History of colonic polyps Health Maintenance Due Date Last Done Comments DXA Scan 1950 Zoster Vaccines (2 of 3) 07/25/2013 05/30/2013 COLONOSCOPY-EVERY 5 YRS AGES 18-100 03/29/2018 03/29/2013, 03/28/2013, 03/28/2013 COVID-19 Vaccine ( season) 2023 03/13/2022, 10/10/2021, 02/26/2021, Additional history exists DTaP,Tdap,and Td Vaccines (2 - Td or Tdap) 03/11/2023 03/11/2013 Albumin/Creatinine Ratio 09/13/2023 023, 02/06/2022, 11/09/2020, Additional history exists B-12 09/13/2023 09/12/2022, 04/0 09/2021, 12/18/2020, Additional history exists HbA1c 10/09/2023 04/09/2023, 03/09/2022, 02/06/2022, Additional history exists Depression Screening 10/15/2023 10/14/2022 GFR 02/16/2024 08/18/2023, 04/24, 04/09/2023, Additional history exists Diabetic Eye Exam 04/29/2024 04/29/2023, , 01/03/2020, Additional history exists Diabetic Foot Exam 04/29/2024 04/29/2023, 0 01/06/2022, 07/29/2017, Additional history exists CKD HGB USE SMARTSET 11610 05/21/202405/21, 09/12/2022, 02/06/2022, Additional history exists TSH 05/21/2024 05/21/2023, 08/21, 02/06/2022, Additional history exists CKD PHOS USE SMARTSET 89938 08/18/202407/24, 04/09/2023, 02/06/2022, Additional history exists Hepatitis B Completed 07/05/2015, 12/21, 12/13/2013 Pneumococcal Vaccine: 65+ Years Completed 10/23/2016, 09/27/2015, 12/05/2005 Influenza Vaccine (FLU shot) Completed 01/2023, 03/08/2022, 02/21/2021, Additional history exists GARDASIL-HPV IMMUNIZATION SERIES Aged Out No longer eligible based on patient's age to complete this topic MENINGOCOCCAL (MENACTRA/MENVEO) Aged Out No longer eligible based on patient's age to complete this topic documented as of this encounter Medical Devices Not on filedocumented as of this encounter Visit Diagnoses Diagnosis Type 2 diabetes mellitus with hemoglobin A1c goal of less than 8.0% ([facility])- Primary documented in this encounter Advance Directives Latest [...] the patient have Health Care Power of Field Artillery Basic? No Care Teams Yarn Dry Room Worker Relationship Specialty Start Date End Date Vishnu Hansen MD [address] [place] [address] PCP - General Family Medicine 06/02/14 documented as of this encounter
--- OUTSIDE RECORDS SUMMARY | 2023-12-03 10:50 | External Medical Summary ---
Author Name Unknown Address Unknown Organization K01:[facility] [place] [address] [place] [address] Laboratory Report Ordering Provider Test Date Status TYRONE FRANCIS 10/19/2023 11:31:30 Final Observation Date Value Abnormality Reference (Units ) Status Uric Acid 10/19/2023 11:31:30 5.5 3.4-7.0 (m g/dL) Final Performing Location LABORATORY C - [address] [facility] [address]
--- OUTSIDE RECORDS SUMMARY | 2023-12-03 10:50 | External Medical Summary ---
Author Name Unknown Address Unknown Organization K01:LABORATORY C - [address] [facility] [place] [address] Laboratory Report Ordering Provider Test Date Status MERLINE IBARRA 10/19/2023 11:31:30 Final Observation Date Value Abnormality Reference (Units ) Status Magnesium 10/19/2023 11:31:30 1.8 1.5-2.6 (m g/dL) Final Performing Location [facility] - [address] [place] [address]
--- OUTSIDE RECORDS SUMMARY | 2023-12-03 10:50 | External Medical Summary | Summary of Care ---
Author Name Unknown Organization [facility] Address [address] [place] [address] Phone [phone] Care Team Providers Care Fitness And Wellness Director Name Role Phone Vishnu Hansen MD Primary Care Provider + Reason for Visit * Reason Onset Date Comments Advice 09/28/2023 Levemir alternat yris Encounter Details Date Type Department Care Team (Late st Contact Info) Description 09/28/2023 Telephone Family Practice [facility] [address] [place] [address] Vishnu Hansen MD [address] [facility] [place] [phone] Advice (Levemir alternative ) Allergies Active Allergy Reactions Criticality Noted Date Comments Amiodarone Rash 10/08/2018 Sildenafil Citrate 06/20/2014 Severe [place]ULD[place], flushed feeling Simvastatin 12/05/2005 Myalgias arthralgias documented as of this encounter (statuses as of 10/01/2023) Medications Medication Sig Dispensed Refills Start Date [...] goal of less than 8.0% ([facility]) Use daily with insulin. E11.9 100 Box [...] Patient not taking.Reported on 08/05/2023 Nystatin-Triamci nolone 046041-0.1 UNIT/GM-% External Cream (Mycolog)Indicat ions:Cutaneous candidiasis APPLY [...] E11.9 60 mL 5 10/01/19 24 Active Levemir 100 UNIT/ML Subcutaneous Solution [...] 9 mL 5 09/29/19 24 024 Discontinued Insulin Glargine Solostar 100 UNIT/ML Subcutaneous Solution Pen-injectorIndi cations:Type 2 diabetes mellitus with hemoglobin A1c goal of less than 8.0% (HCC) Inject 75 Units under the skin every night at bedtime. E11.9 60 mL 5 09/30/19 24 024 Discontinued(Re fill) documented as of this encounter (statuses as of 10/01/2023) Active Problems Problem Noted Date Diagnosed Date [...] as of this encounter (statuses as of 10/01/2023) Resolved Problems Problem Noted Date Diagnosed Date [...] 10/26/2013 10/23/2016 Overview: 11/02 CT sinus/brain at [facility] shows left maxillary sinusitis. S/p [...] as of this encounter (statuses as of 10/01/2023) Immunizations Name Administration Dates Next Due COVID-19 mRNA, LNP-s, No Pre serve, 2-Dose Series ([employer]) 10/10/2021,02/26/2021,09/10/2020,08/15 Covid-19, Mrna, Lnp-s, Pf, B ivalent, 30 Mcg, IM, 12 yrs and above ([employer]) 03/13/2022 Hepatitis B, 20+ yrs 07/05/2015,01/16/2014,12/13 Pneumococcal [...] encounter Miscellaneous Notes * Addendum Note - Vishnu Hansen MD - 10/01/2023 2:13 PM EDTAddended by: VISHNU HANSEN on: 10/01/2023 02:13 PM Modules accepted: Orders * Telephone Encounter - Vishnu Hansen MD - 10/01/2023 2:13 PM EDT Resent. * Telephone Encounter - Rodriguezmary jo Latoshaeladio West CPhT - 09/30/2023 1:06 PM EDT Pharmacy asking for 4 boxes or 60ml for a 90 ds with a diagnosis code , Insurance will only pay forLantus (brand) pharmacy is requesting this be changed to a 90 day supply . Please approve the following modified prescription if appropriate. Did you pend patient's preferred pharmacy and medication before forwarding?yes Pharmacy: [facility] [address] [place] [address] Signed Prescriptions: Disp Refills Insulin Glargine Solostar [...] 10:40 AM EDT Office Visit Family Practice [facility] [address] [place] [address] Vishnu Hansen MD [address] [facility] [place] [address] 02/29/2024 10:45 AM EDT Office Visit Dermatology [facility] [address] [place] [address] Adonis Kilgore MD [address] [place] [address] Scheduled Procedures Name Priority Associated Diagnoses Date/Ti me COLONOSCOPY FLEXIBLE PROXIMA L DIAGNOSTIC Recall History of colonic polyps Health Maintenance Due Date Last Done Comments DXA Scan 1950 Zoster Vaccines (2 of 3) 07/25/2013 05/30/2013 COLONOSCOPY-EVERY 5 YRS AGES 18-100 03/29/2018 03/29/2013, 03/28/2013, 03/28/2013 COVID-19 Vaccine (2022- season) 2023 03/13/2022, 10/10/2021, 02/26/2021, Additional history [...] Additional history exists CKD HGB USE SMARTSET 16208 05/21/202405/21, 09/12/2022, 02/06/2022, Additional history exists TSH 05/21/2024 05/21/2023, 08/21, 02/06/2022, Additional history exists CKD PHOS USE SMARTSET 81668 08/18/202407/24, 04/09/2023, 02/06/2022, Additional history exists Hepatitis [...] hemoglobin A1c goal of less than 8.0% (HCC)- Primary documented in this encounter Advance Directives [...] the patient have Health Care Power of Delivery Tech? No Care Teams Fitness And Wellness Director Relationship Specialty Start Date End Date Vishnu Hansen MD [address] [place] [address] PCP - General Family Medicine 06/02/14 documented as of this encounter
--- OUTSIDE RECORDS SUMMARY | 2023-12-03 10:50 | External Medical Summary ---
Author Name Unknown Address Unknown Organization K01:LABORATORY [facility] [place] - [address] [place] [address] Laboratory Report Ordering Provider Test Date Status MERLINE IBARRA 10/19/2023 11:31:30 Final Observation Date Value Abnormality Reference (Units ) Status Vitamin B12 10/19/2023 11:31:30 156 [id number] (pg/mL) Final Performing Location LAB[facility]ORY [facility] - [address] [place] [address]
--- OUTSIDE RECORDS SUMMARY | 2023-12-03 10:50 | External Medical Summary | Summary of Care ---
Author Name Unknown Organization [facility] Address [address] [place] [address] Phone [phone] Care Team Providers Care Medical Biller Coder Name Role Phone Vishnu Allison MD Primary Care Provider + Reason for Visit * Reason Comments eRx-Medication Refill Encounter Details Date Type Department Care Team (Late st Contact Info) Description 09/16/2023 Refill Nephrology, [facility]erm[facility] Duque [address] [place] [address] Neno Braun MD [address] [place] [address] Gout Allergies Active Allergy Reactions Criticality Noted Date Comments Amiodarone Rash 10/08/2018 Sildenafil Citrate 06/20/2014 Severe SPAULDING, flushed feeling Simvastatin 12/05/2005 Myalgias arthralgias documented as of this encounter (statuses as of 09/16/2023) Medications Medication Sig Dispensed Refills Start Date [...] E11.9 100 Box Dosing Unit 3 08/11/19 Active diphenhydrAMINE HCl (BENADRYL ITCH STOPPING) 2 [...] in 24 hours 12 Tab 5 07/04/19 Active Additional Information Patient not taking.Reported on [...] to 2 weeks. 24 Suppository 1 12/19/19 Active Additional Information Patient not taking.Reported on 08/18/2023 Triamcinolone Acetonide 0.1 % External Cream (Aristocort) APPLY CREAM EXTERNALLY TO AFFECTED AREA TWICE DAILY TO LEGS 80 g 0 02/01/20 Active Additional Information Patient not taking.Reported on 08/05/2023 Nystatin-Triamci nolone 486151-0.1 UNIT/GM-% External Cream (Mycolog)Indicat ions:Cutaneous candidiasis APPLY CREAM TOPICALLY TO AFFECTED AREA TWICE DAILY FOR 2 WEEKS 60 g 2 03/09/20 Active Additional Information Patient not taking.Reported on [...] MEAL 180 Tablet 0 05/30/20 22 Active Levemir 100 UNIT/ML Subcutaneous Solution (insulin Detemir)Indicati ons:Type 2 diabetes mellitus with hemoglobin A1c goal of less than 8.0% (HCC) Inject 75 Units under the skin at bedtime. 80 mL 3 07/18/19 23 Active Gabapentin 100 MG Oral Capsule (Neurontin)Indic [...] morning. 45 Tablet 3 11/26/19 23 Active Pantoprazole Sodium 40 MG Oral Tablet Delayed Release (Protonix) TAKE 1 TABLET BY MOUTH TWICE DAILY DO NOT CUT, CRUSH OR CHEW 180 Tablet 1 03/16/20 23 Active Jardiance 10 MG Oral Tablet [...] Vitamin D 50 MCG (1999 [place]) Oral CapsuleIndicatio ns:Vitamin D deficiency Take [...] daily 30 Tablet 0 09/16/19 24 Active Allopurinol 300 MG Oral Tablet (Zyloprim)Indica tions:Gout Take 1 tablet by mouth once daily 30 Tablet 0 08/17/19 24 024 Discontinued documented as of this encounter (statuses as of 09/16/2023) Active Problems Problem Noted Date Diagnosed Date [...] <7. 2 a1c 8.2 06/03 a1c 7.7 8/13 a1c 7.5 on insulin ICD-10 update of inactive term documented as of this encounter (statuses as of 09/16/2023) Resolved Problems Problem Noted Date Diagnosed Date [...] 10/26/2013 10/23/2016 Overview: 11/02 CT sinus/brain at [facility] shows left maxillary sinusitis. S/p amox, [...] as of this encounter (statuses as of 09/16/2023) Immunizations Name Administration Dates Next Due COVID-19 mRNA, LNP-s, No Pre serve, 2-Dose Series ([employer]) 10/10/2021,02/26/2021,09/10/2020,08/15 Covid-19, Mrna, Lnp-s, Pf, B ivalent, 30 Mcg, IM, 12 yrs and above ([employer]) 03/13/2022 Hepatitis B, 20+ yrs 07/05/2015,01/16/2014,12/13 Pneumococcal [...] encounter Miscellaneous Notes * Telephone Encounter - Neno Braun MD - 09/16/2023 10:31 AM EDTSigned Prescriptions: Disp Refills Allopurinol 300 MG Oral Tablet (Zyloprim) 30 Tab*0 Sig: Take 1 tablet by mouth once daily Authorizing Provider: NENO BRAUN * Telephone Encounter - Giovanna Mahan LPN - 09/16/2023 9:34 AM EDTPending Prescriptions: Disp Refills Allopurinol 300 MG Oral Tablet 30 Tab*0 Sig: Take 1 tablet by mouth once daily * Telephone Encounter - Giovanna Mahan LPN - 09/16/2023 9:32 AM EDT Rx pended Message sent to provider for approval Last OV 08/18/23 Next OV No future apt scheduled documented in this encounter Plan of Treatment Upcoming Encounters Date Type Department Care Team (Late st Contact Info) Description 10/19/2023 10:40 AM EDT Office Visit Family Practice [facility] [address] [place] [address] Vishnu Allison MD [address] [facility] [place] [address] 02/29/2024 10:45 AM EDT Office Visit Dermatology [facility] [address] [facility] [address] Adonis Kilgore MD [address] [place] [address] Scheduled Procedures Name Priority Associated Diagnoses Date/Ti me COLONOSCOPY FLEXIBLE PROXIMA L DIAGNOSTIC Recall History of colonic polyps Health Maintenance Due Date Last Done Comments DXA Scan 1950 Zoster Vaccines (2 of 3) 07/25/2013 05/30/2013 COLONOSCOPY-EVERY 5 YRS AGES 18-100 03/29/2018 03/29/2013, 03/28/2013, 03/28/2013 COVID-19 Vaccine ( - 2022- season) 2023 03/13/2022, 10/10/2021, 02/26/2021, Additional history [...] Additional history exists CKD HGB USE SMARTSET 17818 05/21/202405/21, 09/12/2022, 02/06/2022, Additional history exists TSH 05/21/2024 05/21/2023, 08/21, 02/06/2022, Additional history exists CKD PHOS USE SMARTSET 27387 08/18/202407/24, 04/09/2023, 02/06/2022, Additional history exists Hepatitis [...] as of this encounter Visit Diagnoses Diagnosis Gout Gout, unspecified documented in this encounter Advance Directives [...] the patient have Health Care Power of Chief Deputy Sheriff? No Care Teams Medical Biller Coder Relationship Specialty Start Date End Date Vishnu Allison MD [address] [place] [address] PCP - General Family Medicine 06/02/14 documented as of this encounter
--- OUTSIDE RECORDS SUMMARY | 2023-12-03 10:50 | External Medical Summary ---
Author Name Unknown Address Unknown Organization K01:LABORATORY [facility] [place] - [address] [place] [address] Laboratory Report Ordering Provider Test Date Status JENNFIERBrettMERLINE 10/19/2023 11:31:30 Final Observation Date Value Abnormality Reference (Units ) Status TSH 10/19/2023 11:31:30 1.50 0.27-4.20 (uIU/mL) Final Performing Location LABORATORY [facility] [place] - [address] [place] [address]
--- OUTSIDE RECORDS SUMMARY | 2023-12-03 10:50 | External Medical Summary | Summary of Care ---
Author Name Unknown Organization [facility] Address [address] [place] [address] Phone [phone] Care Team Providers Care Assistant Project Manager Name Role Phone Vishnu Hansen MD Primary Care Provider + Reason for Visit * Reason Comments eRx-Medication Refill Encounter Details Date Type Department Care Team (Late st Contact Info) Description 09/23/2023 Refill Family Practice [facility] [address] [place] [address] Vishnu Hansen MD [address] [place] [address] Allergies Active Allergy Reactions Criticality Noted Date Comments Amiodarone Rash 10/08/2018 Sildenafil Citrate 06/20/2014 Severe SPAULDING, flushed feeling Simvastatin 12/05/2005 Myalgias arthralgias documented as of this encounter (statuses as of 09/24/2023) Medications Medication Sig Dispensed Refills Start Date [...] Patient not taking.Reported on 08/05/2023 Nystatin-Triamci nolone 816395-9.1 UNIT/GM-% External Cream (Mycolog)Indicat ions:Cutaneous candidiasis APPLY [...] daily 30 Tablet 0 09/16/19 24 Active Levemir 100 UNIT/ML Subcutaneous Solution (insulin Detemir)Indicati ons:Type 2 diabetes mellitus with hemoglobin A1c goal of less than 8.0% ([facility]) INJECT 75 UNITS SUBCUTANEOUSLY AT BEDTIME 20 mL 0 09/17/19 24 Active Pantoprazole Sodium 40 MG Oral Tablet Delayed Release (Protonix) TAKE 1 TABLET BY MOUTH TWICE DAILY . DO NOT CUT, CRUSH OR CHEW 180 Tablet 2 09/24/19 24 Active Pantoprazole Sodium 40 MG Oral Tablet Delayed Release (Protonix) TAKE 1 TABLET BY MOUTH TWICE DAILY DO NOT CUT, CRUSH OR CHEW 180 Tablet 1 03/16/20 23 024 Discontinued documented as of this encounter (statuses as of 09/24/2023) Active Problems Problem Noted Date Diagnosed Date [...] as of this encounter (statuses as of 09/24/2023) Resolved Problems Problem Noted Date Diagnosed Date [...] 10/26/2013 10/23/2016 Overview: 11/02 CT sinus/brain at [facility] shows left maxillary sinusitis. S/p amox, [...] as of this encounter (statuses as of 09/24/2023) Immunizations Name Administration Dates Next Due COVID-19 mRNA, LNP-s, No Pre serve, 2-Dose Series ([place]) 10/10/2021,02/26/2021,09/10/2020,08/15 Covid-19, Mrna, Lnp-s, Pf, B ivalent, 30 Mcg, IM, 12 yrs and above ([place]) 03/13/2022 Hepatitis B, 20+ yrs 07/05/2015,01/16/2014,12/13 Pneumococcal [...] encounter Miscellaneous Notes * Telephone Encounter - Ja Astudillo RPh - 09/24/2023 1:43 PM EDT Signed Prescriptions: Disp Refills Pantoprazole Sodium 40 MG Oral Tablet Alissa*180 Ta*2 Sig: TAKE 1 TABLET BY MOUTH TWICE DAILY . DO NOT CUT, CRUSH OR CHEWAuthorizing Provider: VISHNU HANSEN User: JA ASTUDILLO documented in this encounter Plan of Treatment Upcoming Encounters Date Type Department Care Team (Late st Contact Info) Description 10/19/2023 10:40 AM EDT Office Visit Family Practice [facility] [address] [place] [address] Vishnu Hansen MD [address] [place] [address] 02/29/2024 10:45 AM EDT Office Visit Dermatology [facility] [address] [facility] [place] [address] Adonis Kilgore MD [address] [facility] [place] [address] Scheduled Procedures Name Priority Associated Diagnoses Date/Ti [...] Additional history exists CKD HGB USE SMARTSET 93309 05/21/202405/21, 09/12/2022, 02/06/2022, Additional history exists TSH 05/21/2024 05/21/2023, 08/21, 02/06/2022, Additional history exists CKD PHOS USE SMARTSET 52543 08/18/202407/24, 04/09/2023, 02/06/2022, Additional history exists Hepatitis [...] Not on filedocumented as of this encounter Advance Directives Latest Code Status on File Code Status Date Activated Date Inactivated Comments Full Code 09/14/2012 2:56 AM 09/24/2012 6:32 PM This o rder reflects the patients wishes and were consensually agreed upon. Question Answer Comments Discussion of Advance Directives occurred with: Not Discussed Does the patient have a Living Will? No Does the patient have Health Care Power of Systems Integration Advisor? No Care Teams Assistant Project Manager Relationship Specialty Start Date End Date Vishnu Hansen MD [address] [place] [address] PCP - General Family Medicine 06/02/14 documented as of this encounter
--- OUTSIDE RECORDS SUMMARY | 2023-12-03 10:50 | External Medical Summary | Summary of Care ---
Author Name Unknown Organization [facility] Address [address] [place] [address] Phone [phone] Care Team Providers Care Clinical Quality Manager Name Role Phone Vishnu Hansen MD Primary Care Provider + Reason for Visit * Reason Onset Date Comments Advice 09/28/2023 Levemir alternat yris Encounter Details Date Type Department Care Team (Late st Contact Info) Description 09/28/2023 Telephone Family Practice [facility] [address] [place] [address] Vishnu Hansen MD [address] [facility] [place] [place] [id number] Advice (Levemir alternative ) Allergies Active Allergy [...] hemoglobin A1c goal of less than 8.0% ([facility]) Use daily with insulin. E11.9 100 [...] Patient not taking.Reported on 08/05/2023 Nystatin-Triamci nolone 155415-0.1 UNIT/GM-% External Cream (Mycolog)Indicat ions:Cutaneous candidiasis APPLY [...] less than 8.0% 07/06/2002 Overview: 6/ <7. 2/14 a1c 8.2 06/03 a1c 7.7 [...] 10/26/2013 10/23/2016 Overview: 11/02 CT sinus/brain at [facility] shows left maxillary sinusitis. S/p [...] mRNA, LNP-s, No Pre serve, 2-Dose Series ([place]) 10/10/2021,02/26/2021,09/10/2020,08/15 Covid-19, Mrna, Lnp-s, Pf, B ivalent, 30 Mcg, IM, 12 yrs and above ([place]) 03/13/2022 Hepatitis B, 20+ yrs 07/05/2015,01/16/2014,12/13 Pneumococcal [...] medication before forwarding?yes Pharmacy: [facility] [address] [facility] Signed Prescriptions: Disp Refills Insulin Glargine Solostar [...] 10:40 AM EDT Office Visit Family Practice [facility] [address] [place] [address] Vishnu Hansen MD [address] [place] [address] 02/29/2024 10:45 AM EDT Office Visit Dermatology [facility] [address] [facility] [place] [address] Adonis Kilgore MD [address] [facility] [place] [address] Scheduled Procedures Name Priority Associated Diagnoses Date/Ti [...] Additional history exists CKD HGB USE SMARTSET 22419 05/21/202405/21, 09/12/2022, 02/06/2022, Additional history exists TSH 05/21/2024 05/21/2023, 08/21, 02/06/2022, Additional history exists CKD PHOS USE SMARTSET 66956 08/18/202407/24, 04/09/2023, 02/06/2022, Additional history exists Hepatitis [...] hemoglobin A1c goal of less than 8.0% ([facility])- Primary documented in this encounter Advance Directives [...] the patient have Health Care Power of Piece [place]? No Care Teams Clinical Quality Manager Relationship Specialty Start Date End Date Vishnu Hansen MD [address] [place] [address] PCP - General Family Medicine 06/02/14 documented as of this encounter
--- OUTSIDE RECORDS SUMMARY | 2023-12-03 10:50 | External Medical Summary | Summary of Care ---
Author Name Unknown Organization [facility] Address [address] [place] [address] Phone [phone] Care Team Providers Care Instructional Facilitator Name Role Phone Vishnu Allison MD Primary Care Provider + Reason for Visit * Reason Comments eRx-Medication Refill Encounter Details Date Type Department Care Team (Late st Contact Info) Description 09/16/2023 Refill Pharmacy, [facility] [address] [place] [address] Vishnu Allison MD [address] [place] [address] Type 2 diabetes mellitus with hemoglobin A1c goal of less than 8.0% ([facility]) Allergies Active Allergy Reactions Criticality Noted Date Comments Amiodarone Rash 10/08/2018 Sildenafil Citrate 06/20/2014 Severe SPAULDING, flushed feeling Simvastatin 12/05/2005 Myalgias arthralgias documented as of this encounter (statuses as of 09/17/2023) Medications Medication Sig Dispensed Refills Start Date [...] hemoglobin A1c goal of less than 8.0% ([facility]) Use daily with insulin. E11.9 [address] [...] Patient not taking.Reported on 08/05/2023 Nystatin-Triamci nolone 252475-4.1 UNIT/GM-% External Cream (Mycolog)Indicat ions:Cutaneous candidiasis APPLY [...] SLEEP 30 Tablet 5 09/08/19 24 Active Levemir 100 UNIT/ML Subcutaneous Solution (insulin Detemir)Indicati ons:Type 2 diabetes mellitus with hemoglobin A1c goal of less than 8.0% ([facility]) INJECT 75 UNITS SUBCUTANEOUSLY AT BEDTIME 20 mL 0 09/17/19 24 Active Levemir 100 UNIT/ML Subcutaneous Solution (insulin Detemir)Indicati ons:Type 2 diabetes mellitus with hemoglobin A1c goal of less than 8.0% ([facility]) Inject 75 Units under the skin at bedtime. 80 mL 3 07/18/19 23 024 Discontinued documented as of this encounter (statuses as of 09/17/2023) Active Problems Problem Noted Date Diagnosed Date [...] as of this encounter (statuses as of 09/17/2023) Resolved Problems Problem Noted Date Diagnosed Date [...] 10/26/2013 10/23/2016 Overview: 11/02 CT sinus/brain at [facility] shows left maxillary sinusitis. S/p [...] as of this encounter (statuses as of 09/17/2023) Immunizations Name Administration Dates Next Due COVID-19 mRNA, LNP-s, No Pre serve, 2-Dose Series ([place]) 10/10/2021,02/26/2021,09/10/2020,08/15 Covid-19, Mrna, Lnp-s, Pf, B ivalent, [...] encounter Miscellaneous Notes * Telephone Encounter - Jose Nagel MD - 09/17/2023 8:01 AM EDT Signed Prescriptions: Disp Refills Levemir 100 UNIT/ML Subcutaneous Solution *20 mL 0 Sig: INJECT 75 UNITS SUBCUTANEOUSLY AT BEDTIME Authorizing Provider: JOSE NAGEL * Telephone Encounter - Risa Mcclure LPN - 09/16/2023 10:23 AM EDTPending Prescriptions: Disp Refills Levemir 100 UNIT/ML Subcutaneous Solution 20 mL 0 Sig: INJECT 75 UNITS SUBCUTANEOUSLY AT BEDTIME * Telephone Encounter - Risa Mcclure LPN - 09/16/2023 10:22 AM EDT Pending Prescriptions: Disp Refills Levemir 100 UNIT/ML Subcutaneous Solution*20 mL 0 Sig: INJECT 75 UNITS SUBCUTANEOUSLY AT BEDTIME Last Visit: 10/14/2022 (in office), 03/06/2022 (telemedicine) Next Visit: Visit date not found Last date the medication was ordered: 07/18/22 Patient Active Problem List Diagnosis Code Dyslipidemia E78.5 Type 2 diabetes mellitus with hemoglobin A1c goal of less than 8.0% ([facility]) E11.9 History of subarachnoid hemorrhage Z86.79 Alcohol dependence in remission ([facility]) F10.21 Routine general medical examination at a health care facility Z00.00 Gout M10.9 HTN, goal below 130/80 I10 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 Permanent atrial fibrillation ([facility]) I48.21 KARUNA (obstructive sleep apnea) G47.33 Morbid obesity due to excess calories ([facility]) E66.01 DM type 2 with diabetic peripheral neuropathy ([facility]) E11.42 Gastroesophageal reflux disease without esophagitis K21.9 Idiopathic hypothyroidism E03.9 Chronic edema R60.9 Venous stasis dermatitis of both lower extremities I87.2 Hypertensive kidney disease with stage 3b chronic kidney disease (HCC) I12.9, N18.32 Chronic insomnia F51.04 Chronic kidney disease, stage 3b ([facility]) N18.32 Heart failure ([facility]) I50.9 Other persistent atrial fibrillation ([facility]) I48.19 Dyslipidemia, goal LDL below 70 E78.5 Labs: Lab Results Component Value Date/Time CREATININE - [facility] 1.2 08/18/2023 10:58 AM CREATININE - [facility] 1.6 (H) 04/24/2020 10:16 AM CREATININE, RANDOM URINE - [facility] 29 09/12/2022 09:41 AM CREATININE, RANDOM URINE - [facility] 43 04/24/2020 10:16 AM CREATININE-OUTSIDE LAB 1.39 04/17/2018 12:00 AM Lab Results Component Value Date/Time POTASSIUM - [facility] 4.6 08/18/2023 10:58 AM POTASSIUM - [facility] 4.6 04/24/2020 10:16 AM POTASSIUM-OUTSIDE LAB 4.1 04/17/2018 12:00 AM Lab Results Component Value Date/Time TSH - [facility] 3.12 05/21/2023 08:27 AM TSH - [facility] 2.25 12/26/2019 09:17 AM TSH - OUTSIDE LAB 3.150 12/03/2017 12:00 AM Lab Results Component Value Date/Time LDL (CALCULATED)-[facility] 113 09/18/2015 12:00 AM LDL CHOLESTEROL (CALCULATED) - [facility] 82 05/21/2023 08:27 AM LDL CHOLESTEROL (CALCULATED) - [facility] 71 09/12/2022 09:40 AM LDL CHOLESTEROL (CALCULATED) - [facility] 72 12/26/2019 09:17 AM LDL CHOLESTEROL (CALCULATED) - [facility] 86 08/06/2018 10:41 AM LDL CHOLESTEROL (DIRECT MEASURE) - [facility] NOT APPLICABLE 12/26/2019 09:17 AM LDL CHOLESTEROL (DIRECT MEASURE) - [facility] NOT APPLICABLE 08/06/2018 10:41 AM LDL CHOLESTEROL (DIRECT MEASURE) - [facility] 128 12/05/2005 01:22 PM Lab Results Component Value Date/Time ALT - [facility] 23 05/21/2023 08:27 AM ALT - [facility] 30 03/09/2020 03:40 PM ALT-OUTSIDE LAB 64 12/09/2015 12:00 AM Hemoglobin AIC Results: Lab Results Component Value Date/Time HEMOGLOBIN A1C - [facility] 6.4 (H) 04/09/2023 09:25 AM HEMOGLOBIN A1C - [facility] 6.9 (H) 09/12/2022 09:40 AM HEMOGLOBIN A1C - [facility] 6.4 (H) 02/06/2022 08:42 AM HEMOGLOBIN A1C - [facility] 6.5 (H) 12/26/2019 09:17 AM HEMOGLOBIN A1C - [facility] 6.8 (H) 04/14/2019 09:34 AM HEMOGLOBIN A1C - [facility] 6.4 (H) 11/16/2018 02:21 PM documented in this encounter Plan of Treatment Upcoming Encounters Date Type Department Care Team (Late st Contact Info) Description 10/19/2023 10:40 AM EDT Office Visit Family Practice [facility] [address] [place] [address] Vishnu Allison MD [address] [place] [address] 02/29/2024 10:45 AM EDT Office Visit Dermatology [facility] [address] [facility] [place] [address] Adonis Kilgore MD [address] [facility] [place] [address] Scheduled Procedures Name Priority Associated Diagnoses Date/Ti me COLONOSCOPY FLEXIBLE PROXIMA L DIAGNOSTIC Recall History of colonic polyps Health Maintenance Due Date Last Done Comments DXA Scan 1950 Zoster Vaccines (2 of 3) 07/25/2013 05/30/2013 COLONOSCOPY-EVERY 5 YRS AGES 18-100 03/29/2018 03/29/2013, 03/28/2013, 03/28/2013 COVID-19 Vaccine ( - season) 2023 03/13/2022, 10/10/2021, 02/26/2021, Additional history exists DTaP,Tdap,and Td Vaccines (2 - Td or Tdap) 03/11/2023 03/11/2013 Albumin/Creatinine Ratio 09/13/2023 023, 02/06/2022, 11/09/2020, Additional history exists B-12 09/13/2023 09/12/2022, 04/0 09/2021, 12/18/2020, Additional history exists HbA1c 10/09/2023 04/09/2023, 03/2 09/2022, 02/06/2022, Additional history exists Depression Screening 10/15/2023 10/14/2022 GFR 02/16/2024 08/18/2023, 04/24, 04/09/2023, Additional history exists Diabetic Eye Exam 04/29/2024 04/29/2023, , 01/03/2020, Additional history exists Diabetic Foot Exam 04/29/2024 04/29/2023, 0 01/06/2022, 07/29/2017, Additional history exists CKD HGB USE SMARTSET 83888 05/21/202405/21, 09/12/2022, 02/06/2022, Additional history exists TSH 05/21/2024 05/21/2023, 08/21, 02/06/2022, Additional history exists CKD PHOS USE SMARTSET 07469 08/18/202407/24, 04/09/2023, 02/06/2022, Additional history exists Hepatitis [...] A1c goal of less than 8.0% ([facility]) documented in this encounter Advance Directives Latest [...] patient have Health Care Power of Delivery Representative? No Care Teams Instructional Facilitator Relationship Specialty Start Date End Date Vishnu Allison MD [address] [place] [address] PCP - General Family Medicine 06/02/14 documented as of this encounter
--- OUTSIDE RECORDS SUMMARY | 2023-12-03 10:50 | External Medical Summary ---
Author Name Unknown Address Unknown Organization K01:[facility] - [address] [place] [address] Laboratory Report Ordering Provider Test Date Status MERLINE IBARRA 10/19/2023 11:31:30 Final Observation Date Value Abnormality Reference (Units ) Status Phosphate 10/19/2023 11:31:30 3.6 2.5-4.8 (m g/dL) Final Performing Location [facility] - [address] [place] [address]
--- OUTSIDE RECORDS SUMMARY | 2023-12-03 10:50 | External Medical Summary ---
Author Name Unknown Address Unknown Organization K01:[facility] [place] [address] [place] [address] Laboratory Report Ordering Provider Test Date Status TYRONE FRANCIS 10/19/2023 11:31:30 Final Observation Date Value Abnormality Reference (Units ) Status Parathyrin.intact [Mass/volume] in Serum or Plasma 10/19/2023 11:31:30 85 Above high normal 15-65 (pg/mL) Final Performing Location [facility] [place] [address] [place] [address]
--- OUTSIDE RECORDS SUMMARY | 2023-12-03 10:50 | External Medical Summary ---
Author Name Unknown Address Unknown Organization K01:[facility] [place] [facility] [address] [facility] [address] Laboratory Report Ordering Provider Test Date Status TYRONE FRANCIS 10/19/2023 11:31:30 Final Observation Date Value Abnormality Reference (Units ) Status HbA1C 10/19/2023 11:31:30 8.3 Above high normal 4. 0-5.6 (%) Final The use of HbA1c to monitor glycemic status is based on normal hemoglobin and HbA composition. This test should not be used in patients with abnormal hemoglobin that affects the half life of the red blood cell or the in vivo glycation rates. Glucose, estimated average 10/19/2023 11:31:30 192 Above high normal <126 (mg/dL) Kade thakur Performing Location [facility] [place] [facility] [address] [facility] [address]
--- OUTSIDE RECORDS SUMMARY | 2023-12-03 10:51 | External Medical Summary | Summary of Care ---
Author Name Unknown Organization [facility] Address [address] [facility] [place] [address] Phone [phone] Care Team Providers Care Registered Route Associate Name Role Phone Vishnu Allison MD Primary Care Provider + Reason for Visit * Reason Onset Date Comments Medication Refill 08/24/2023 Encounter Details Date Type Department Care Team (Late st Contact Info) Description 08/24/2023 Refill Cardiology [facility] [address] [place] [phone] Claire Contreras PA-C [address] [place] [phone] HTN, goal below 140/90*; Permanent atrial fibrillation (HCC) Allergies Active Allergy Reactions Criticality Noted Date Comments Amiodarone Rash 10/08/2018 Sildenafil Citrate 06/20/2014 Severe SPAULDING, flushed feeling Simvastatin 12/05/2005 Myalgias arthralgias documented as of this encounter (statuses as of 08/28/2023) Medications Medication Sig Dispensed Refills Start Date [...] hemoglobin A1c goal of less than 8.0% ([facility]) Use daily with insulin. E11.9 100 Box [...] Patient not taking.Reported on 08/05/2023 Nystatin-Triamcin olone 449804-9.1 UNIT/GM-% External Cream (Mycolog)Indicati ons:Cutaneous candidiasis APPLY [...] EVENING MEAL 180 Tablet 0 2 Active Levemir 100 UNIT/ML Subcutaneous Solution (insulin Detemir)Indicatio ns:Type 2 diabetes mellitus with hemoglobin A1c goal of less than 8.0% (HCC) Inject 75 Units under the skin at bedtime. 80 mL 3 3 Active Gabapentin 100 MG Oral Capsule (Neurontin)Indica [...] the morning. 45 Tablet 3 3 Active Zolpidem Tartrate 10 MG Oral Tablet (Ambien) TAKE 1 TABLET BY MOUTH ONCE DAILY AT BEDTIME NEEDED FOR SLEEP 30 Tablet 5 3 Active Pantoprazole Sodium 40 MG Oral Tablet Delayed Release (Protonix) TAKE 1 TABLET BY MOUTH TWICE DAILY DO NOT CUT, CRUSH OR CHEW 180 Tablet 1 3 Active Jardiance 10 MG Oral Tablet [...] THE EVENING 90 Tablet 3 4 Active Allopurinol 300 MG Oral Tablet (Zyloprim)Indicat ions:Gout Take 1 tablet by mouth once daily 30 Tablet 0 4 Active Vitamin D 50 MCG (1999 UT) Oral CapsuleIndication s:Vitamin D deficiency Take 2,000 Units by mouth in the morning. 90 Capsule 0 4 Active Torsemide 20 MG Oral Tablet (Demadex)Indicati ons:HTN, goal below 140/90,Permanent atrial fibrillation (HCC) Take 2 tablets by mouth twice daily 360 Tablet 3 4 Active Torsemide 20 MG Oral Tablet (Demadex) Take 2 tablets by mouth twice daily 360 Tablet 11 2 08/24/19 24 Discontinu ed(Refill) documented as of this encounter (statuses as of 08/28/2023) Active Problems Problem Noted Date Diagnosed Date [...] less than 8.0% 07/06/2002 Overview: 12/03 <7. 214 a1c 8.2 06/03 a1c 7.7 02/01 a1c 7.5 on insulin ICD-10 update of inactive term documented as of this encounter (statuses as of 08/28/2023) Resolved Problems Problem Noted Date Diagnosed Date [...] 10/23/2016 Overview: 11/02 CT sinus/brain at [facility] shows left maxillary sinusitis. S/p amox, [...] as of this encounter (statuses as of 08/28/2023) Immunizations Name Administration Dates Next Due COVID-19 mRNA, LNP-s, No Pre serve, 2-Dose Series ([employer]) 10/10/2021,02/26/2021,09/10/2020,08/15 Covid-19, Mrna, Lnp-s, Pf, B ivalent, [...] encounter Miscellaneous Notes * Telephone Encounter - Claire Adams CPhT - 08/28/2023 10:38 AM EST Patient calling to check status, transferred to speciality line. Thank you, Claire Adams Assistant Professor Surgical Technology Centralized Clinical Pharmacy Services (CCPS) (Formerly Telepharmacy) 08/28/2023,10:38 AM * Telephone Encounter - Claire Contreras PA-C - 08/25/2023 10:26 AM EST Signed Prescriptions: Disp Refills Torsemide 20 MG Oral Tablet (Demadex) 360 Ta*3 Sig: Take 2 tablets by mouth twice dailyAuthorizing Provider: CLAIRE CONTRERAS * Telephone Encounter - Yadira Goldsmith COT - 08/25/2023 9:18 AM ESTPending Prescriptions: Disp Refills Torsemide 20 MG Oral Tablet (Demadex) 360 Ta*3 Sig: Take 2 tablets by mouth twice daily * Telephone Encounter - Bell Bee, revenue collector - 08/24/2023 10:23 AM EST Patient is up to date for office visits. Out of medications, zee Moctezuma was supposed to contactoffice for refill Pending Prescriptions: Disp Refills Torsemide 20 MG Oral Tablet (Demadex) 360 Ta*11 Sig: Take 2 tablets by mouth twice daily Last Visit: Visit date not found (in office), Visit date not found (telemedicine) Next Visit: Visit date not found If no future appointments scheduled, and last appointment is greater than a year ago, please schedule patient for a follow-up appointment Last date the medication was ordered: 12/10/2021 Pharmacy: [facility] [address] [place] [address] Is this request for a controlled substance?No it is not controlled. Urine Drug Screen:No results found. However, due [...] 12/26/2019 09:17 AM * Telephone Encounter - Maranda Guevara CPhT - 08/24/2023 10:14 AM EST Pt calling for specialty line transfer Pt to specialty line. Thank you, Maranda Guevara CPhT Assistant Professor Surgical Technology II Centralized Clinical Pharmacy Services (CCPS) (Formerly Telepharmacy) 08/24/2023,10:15 AM documented in this encounter Plan of Treatment Upcoming Encounters Date Type Department Care Team (Late st Contact Info) Description 10/19/2023 10:40 AM EDT Office Visit Family Practice [facility] [address] [place] [address] Vishnu Allison MD [address] [place] [address] 02/29/2024 10:45 AM EDT Office Visit Dermatology [facility] [address] [place] [address] Adonis Kilgore MD [address] [place] [address] Scheduled Procedures Name Priority Associated Diagnoses Date/Ti me COLONOSCOPY FLEXIBLE PROXIMA L DIAGNOSTIC Recall History of colonic polyps Health Maintenance Due Date Last Done Comments DXA Scan 1950 Zoster Vaccines (2 of 3) 07/25/2013 05/30/2013 COLONOSCOPY-EVERY 5 YRS AGES 18-100 03/29/2018 03/29/2013, 03/28/2013, 03/28/2013 COVID-19 Vaccine (6 - season) 2023 03/13/2022, [...] Additional history exists CKD HGB USE SMARTSET 99238 05/21/202405/21, 09/12/2022, 02/06/2022, Additional history exists TSH 05/21/2024 05/21/2023, 08/21, 02/06/2022, Additional history exists CKD PHOS USE SMARTSET 59856 08/18/202407/24, 04/09/2023, 02/06/2022, Additional history exists Hepatitis [...] encounter Visit Diagnoses Diagnosis HTN, goal below 140/90- Primary Unspecified essential hypertension Permanent atrial fibrillation (HCC) Atrial fibrillation documented in this encounter Advance Directives Latest [...] the patient have Health Care Power of Biological Science Technician? No Care Teams Registered Route Associate Relationship Specialty Start Date End Date Vishnu Allison MD [address] [place] [address] PCP - General Family Medicine 06/02/14 documented as of this encounter
--- OUTSIDE RECORDS SUMMARY | 2023-12-03 10:51 | External Medical Summary | Summary of Care ---
Author Name Unknown Organization [facility] Address [address] [place] [address] Phone [phone] Care Team Providers Care Product Communications Manager Name Role Phone Vishnu Hansen MD Primary Care Provider + Reason for Visit * Reason Onset Date Comments Medication Refill 09/07/2023 Encounter Details Date Type Department Care Team (Late st Contact Info) Description 09/07/2023 Refill Family Practice [facility] [address] [facility] [place] [address] Vishnu Hansen MD [address] [place] [address] DM type 2 with diabetic peripheral neuropathy (HCC) Allergies Active Allergy Reactions Criticality Noted Date Comments Amiodarone Rash 10/08/2018 Sildenafil Citrate 06/20/2014 Severe [place], flushed feeling Simvastatin 12/05/2005 Myalgias arthralgias documented as of this encounter (statuses as of 09/08/2023) Medications Medication Sig Dispensed Refills Start Date [...] less than 8.0% ([facility]) Use daily with insulin. E11.9 100 Box [...] Patient not taking.Reported on 08/05/2023 Nystatin-Triamcin olone 338610-7.1 UNIT/GM-% External Cream (Mycolog)Indicati ons:Cutaneous candidiasis APPLY [...] the morning. 45 Tablet 3 3 Active Pantoprazole Sodium 40 MG Oral [...] 0 4 Active Vitamin D 50 MCG (2000 [...] FOR SLEEP 30 Tablet 5 4 Active Zolpidem Tartrate 10 MG Oral Tablet (Ambien) TAKE 1 TABLET BY MOUTH ONCE DAILY AT BEDTIME NEEDED FOR SLEEP 30 Tablet 5 3 09/07/19 24 Discontinu ed(Refill) documented as of this encounter (statuses as of 09/08/2023) Active Problems Problem Noted Date Diagnosed Date [...] goal of less than 8.0% 07/06/2002 Overview: 14 <7. 2/14 a1c 8.2 06/03 a1c 7.7 02/01 a1c 7.5 on insulin ICD-10 update of inactive term documented as of this encounter (statuses as of 09/08/2023) Resolved Problems Problem Noted Date Diagnosed Date [...] 10/23/2016 Overview: 11/02 CT sinus/brain at [facility] shows left maxillary sinusitis. S/p amox, given [...] as of this encounter (statuses as of 09/08/2023) Immunizations Name Administration Dates Next Due COVID-19 mRNA, LNP-s, No Pre serve, 2-Dose Series (1bib) 10/10/2021,02/26/2021,09/10/2020,08/15 Covid-19, Mrna, Lnp-s, Pf, B ivalent, [...] encounter Miscellaneous Notes * Telephone Encounter - Vishnu Hansen MD - 09/08/2023 12:39 PM EDT Signed Prescriptions: Disp Refills Zolpidem Tartrate 10 MG Oral Tablet (Ambie*30 Tab*5 Sig: TAKE 1 TABLET BY MOUTH ONCE DAILY AT BEDTIME NEEDED FOR SLEEP Authorizing Provider: VISHNU HANSEN * Telephone Encounter - Rosendo Crespo [facility] - 09/08/2023 10:08 AM EDT Pending Prescriptions: Disp Refills Zolpidem Tartrate 10 MG Oral Tablet (Ambie*30 Tab*5 Sig: TAKE 1 TABLET BY MOUTH ONCE DAILY AT BEDTIME NEEDED FOR SLEEP * Telephone Encounter - Rosendo Crespo RPh - 09/08/2023 10:07 AM EDT I have reviewed the patients controlled substance dispensing history in the Prescription Drug Monitoring Program in compliance with the [facility] regulations before prescribing a controlled substance. PDMP checked on 09/08/2023. Pending Prescriptions: Disp Refills Zolpidem Tartrate 10 MG Oral Tablet (Ambi*30 Tab*5 Sig: TAKE 1 TABLET BY MOUTH ONCE DAILY AT BEDTIME NEEDED FOR SLEEP Last Visit: 04/29/2023 (in office), Visit date not found (telemedicine) Next Visit: 10/19/2023 Date medication was last filled: 08/12 Date medication is due for refill: 09/09 Pharmacy: [facility] [address] [place] [address] Is this request for a controlled substance? Yes and Urine Drug Screen Not completed Toxicology results: No results found. However, due to the size of the patient record, not all encounters were searched.Please check Results Review for a complete set of results. Please approve if appropriate. Thanks, Rosendo Crespo PharmD Clinical Pharmacist Centralized Clinical Pharmacy Services (CCPS) (formerly Telepharmacy) [phone] 09/08/2023,10:07 AM * Telephone Encounter - Jagruti De La Rosa PHARM Tech - 09/07/2023 9:27 AM EDT Did you pend patient's preferred pharmacy and medication before forwarding?yes Pharmacy: [facility] [address] [address] [facility] Pending Prescriptions: Disp Refills Zolpidem Tartrate 10 MG Oral Tablet (Ambi*30 Tab*5 Sig: TAKE 1 TABLET BY MOUTH ONCE DAILY AT BEDTIME NEEDED FOR SLEEP Last Visit: 04/29/2023 (in office), Visit date not found (telemedicine) Next Visit: 10/19/2023 If no future appointments scheduled, and last appointment is greater than a year ago, please schedule patient for a follow-up appointment Last date the medication was ordered: 03/17/23 Is this request for a controlled substance?Yes, What was the last refill date 03/17/23 w/ quantity 30 and dosage 1 daily hs and Urine Drug Screen Not completed Urine Drug Screen:No results found. However, due [...] 10/19/2023 10:40 AM EDT Office Visit Family [facility] [address] [place] [address] Vishnu Hansen MD [address] [place] [address] 02/29/2024 10:45 AM EDT Office Visit Dermatology [facility] [place]ia [place] [address] [facility] [place] [address] Adonis Kilgore MD [address] [facility] [place] [address] Scheduled Orders Name Type Priority Associated Diagnoses Orde r Schedule ALBUMIN / CREATININE RATIO, URINE Lab Routine DM type 2 with diabetic peripheral neuropathy (HCC) Expected: 09/08/2023, Expires: 09/07/2024 Scheduled Procedures Name Priority Associated Diagnoses Date/Ti [...] Additional history exists CKD HGB USE SMARTSET 95243 05/21/202405/21, 09/12/2022, 02/06/2022, Additional history exists TSH 05/21/2024 05/21/2023, 08/21, 02/06/2022, Additional history exists CKD PHOS USE SMARTSET 27128 08/18/202407/24, 04/09/2023, 02/06/2022, Additional history exists Hepatitis [...] as of this encounter Visit Diagnoses Diagnosis DM type 2 with diabetic peripheral neuropathy (HCC) Type II or unspecified type diabetes mellitus with neurological manifestations, not stated as uncontrolled documented in this encounter Advance Directives Latest [...] the patient have Health Care Power of Quality Assurance Monitor Body? No Care Teams Product Communications Manager Relationship Specialty Start Date End Date Vishnu Hansen MD [address] [place] [address] PCP - General Family Medicine 06/02/14 documented as of this encounter
--- OUTSIDE RECORDS SUMMARY | 2023-12-03 10:51 | External Medical Summary | Summary of Care ---
Author Name Unknown Organization [facility] Address [address] [facility] [place] [address] Phone [phone] Care Team Providers Care Accounts Receivable Administrator Name Role Phone Vishnu Allison MD Primary Care Provider + Reason for Visit * Reason Onset Date Comments Medication Refill 08/24/2023 Encounter Details Date Type Department Care Team (Late st Contact Info) Description 08/24/2023 Refill Cardiology [facility] [address] [place] [address] Claire Contreras PA-C [address] [place] [phone] HTN, goal below 140/90*; Permanent atrial fibrillation [...] goal of less than 8.0% ([facility]) Use daily with insulin. E11.9 100 [...] Patient not taking.Reported on 08/05/2023 Nystatin-Triamcin olone 704677-6.1 UNIT/GM-% External Cream (Mycolog)Indicati ons:Cutaneous candidiasis APPLY [...] 10/26/2013 10/23/2016 Overview: 11/02 CT sinus/brain at [facility] shows left maxillary sinusitis. S/p [...] mRNA, LNP-s, No Pre serve, 2-Dose Series ([employer]) 10/10/2021,02/26/2021,09/10/2020,08/15 Covid-19, Mrna, Lnp-s, Pf, B ivalent, [...] encounter Miscellaneous Notes * Telephone Encounter - Mckenna Abraham PHARM Tech - 08/28/2023 10:42 AM EST Pt calling to request torsemide. Informed pt that RX is available at their pharmacy. Pt verbalized understanding and stated they will check with their pharmacy regarding this medication. Thank You, Mckenna Abraham Cpht Senior Support Analyst III Centralized Clinical Pharmacy Services (CCPS) (Formerly Telepharmacy) 08/28/2023, 10:42 AM * Telephone Encounter - Claire Adams CPhT - 08/28/2023 10:38 AM EST Patient calling to check status, transferred to speciality line. Thank you, Claire Adams High Pressure Operator Centralized Clinical Pharmacy Services (CCPS) (Formerly Telepharmacy) [...] daily * Telephone Encounter - Bell Bee, deputy sheriff court services - 08/24/2023 10:23 AM EST Patient is up to date for office visits. Out of medications, stated Yueerrol was supposed to contactoffice for refill Pending [...] the medication was ordered: 12/10/2021 Pharmacy: [facility] [address] [place] [address] Is this request for a controlled substance?No [...] specialty line. Thank you, Maranda Guevara CPhT High Pressure Operator II Centralized Clinical Pharmacy Services (CCPS) (Formerly Telepharmacy) 08/24/2023,10:15 AM documented in this encounter Plan of Treatment Upcoming Encounters Date Type Department Care Team (Late st Contact Info) Description 10/19/2023 10:40 AM EDT Office Visit Family Practice [facility] [address] [place] [address] Vishnu Allison MD [address] [place] [id number] 02/29/2024 10:45 AM EDT Office Visit Dermatology [facility] [address] [place] [address] Adonis Kilgore MD [address] [facility] [place], [place] [address] Scheduled Procedures Name Priority Associated Diagnoses Date/Ti [...] 12/18/2020, Additional history exists HbA1c 10/09/2023 04/09/2023, 032 09/2022, 02/06/2022, Additional history exists Depression Screening 10/15/2023 10/14/2022 GFR 02/16/2024 08/18/2023, 04/24, 04/09/2023, Additional history exists Diabetic Eye Exam 04/29/2024 04/29/2023, , 01/03/2020, Additional history exists Diabetic Foot Exam 04/29/2024 04/29/2023, 0 01/06/2022, 07/29/2017, Additional history exists CKD HGB USE SMARTSET 76788 05/21/202405/21, 09/12/2022, 02/06/2022, Additional history exists TSH 05/21/2024 05/21/2023, 08/21, 02/06/2022, Additional history exists CKD PHOS USE SMARTSET 35748 08/18/202407/24, 04/09/2023, 02/06/2022, Additional history exists Hepatitis [...] the patient have Health Care Power of Assignment Manager? No Care Teams Accounts Receivable Administrator Relationship Specialty Start Date End Date Vishnu Allison MD [address] [place] [address] PCP - General Family Medicine 06/02/14 documented as of this encounter
--- OUTSIDE RECORDS SUMMARY | 2023-12-03 10:51 | External Medical Summary | Summary of Care ---
Author Name Unknown Organization [facility] Address [address] [facility] [address] Phone [phone] Care Team Providers Care Plant Controller Name Role Phone Vishnu Allison MD Primary Care Provider + Reason for Visit * Reason Comments Return Visit Chronic Kidney Disease (CKD) Hypertension Encounter Details Date Type Department Care Team (Late st Contact Info) Description 08/18/2023 10:30 AM EST Office Visit Nephrology, [facility] [address] [place] [address] ZeNaomi bee PA-C [address] [place] [address] Hypertension goal BP (blood pressure) < 130/80*; Stage 3b chronic kidney disease (HCC); Idiopathic gout, unspecified chronicity, unspecified site; Vitamin D deficiency Allergies Active Allergy Reactions Criticality Noted Date Comments Amiodarone Rash 10/08/2018 Sildenafil Citrate 06/20/2014 Severe SPAULDING, flushed feeling Simvastatin 12/05/2005 Myalgias arthralgias documented as of this encounter (statuses as of 08/21/2023) Medications Medication Sig Dispensed Refills Start Date End Date Status Insulin Syringe-Needle U-100 (BD INSULIN SYRINGE ULTRAFINE) 30G X 1/2" 1 ML MISC USE DIRECTED 1 Box Dosing Unit 5 11/28/2016 Active Magnesium Oxide 400 MG TabletIndications :Paroxysmal atrial fibrillation (HCC) Take 750 mg by mouth daily. 180 Tab 1 12/14/2017 Active Insulin Syringe-Needle U-100 (RELION INSULIN SYRINGE) 31G X 5/16" 1 ML MISCIndications:T ype 2 diabetes mellitus with hemoglobin A1c goal of less than 8.0% ([facility]) Use daily with insulin. E11.9 100 Box Dosing Unit 3 08/11/2018 Active diphenhydrAMINE HCl (BENADRYL ITCH STOPPING) 2 % GELIndications:De rmatitis due to drug reaction Apply topically to affected area 2 times a day as needed for Itching. Apply to arms. 1 Tube 1 09/03/2018 Active SURGICAL COMPRESSION STOCKING Dispense velcro tightening compression wraps for knee to ankle. Please fit to patient. 2 Each 2 09/29/2018 Active SUMAtriptan (IMITREX) 50 MG TabletIndications :Migraine variant Take 2 tablets at onset of migraine and one tablet every 2 hours as needed, not more than 4 tablets in 24 hours 12 Tab 5 07/04/2019 Active Additional Information Patient not taking.Reported on 08/18/2023 Blood Glucose Monitoring Suppl (ACCU-CHEK JASKARAN PLUS) w/Device KIT TEST BLOOD SUGAR EVERY DAY 1 Kit 0 07/14/2019 Active Glucose Blood (ACCU-CHEK JASKARAN PLUS) STRP Ck FS daily E 11.9 100 Strip 3 02/21/2020 Active Prodigy Twist Top Lancets 28G CHECK FINGERSTICK BLOOD SUGAR THREE TIMES DAILY BEFORE MEALS 300 Each 3 05/11/2020 Active Hydrocortisone Acetate 25 MG Rectal Suppository (Anusol-HC) Administer into the rectum 2 times a day in the morning and at bedtime as needed for Hemorrhoids. Up to 2 weeks. 24 Suppository 1 12/18/2020 Active Additional Information Patient not taking.Reported on 08/18/2023 Triamcinolone Acetonide 0.1 % External Cream (Aristocort) APPLY CREAM EXTERNALLY TO AFFECTED AREA TWICE DAILY TO LEGS 80 g 0 01/31/2021 Active Additional Information Patient not taking.Reported on 08/05/2023 Nystatin-Triamcin olone 640488-3.1 UNIT/GM-% External Cream (Mycolog)Indicati ons:Cutaneous candidiasis APPLY CREAM TOPICALLY TO AFFECTED AREA TWICE DAILY FOR 2 WEEKS 60 g 2 03/09/2021 Active Additional Information Patient not taking.Reported on 08/18/2023 Sucralfate 1 GM Oral Tablet (Carafate)Indicat ions:Dyspepsia,Ga stroesophageal reflux disease with esophagitis TAKE 1 TABLET BY MOUTH 4 TIMES DAILY 30 MINUTES BEFORE MEALS AND AT BEDTIME 360 Tablet 1 06/12/2021 Active Torsemide 20 MG Oral Tablet (Demadex) Take 2 tablets by mouth twice daily 360 Tablet 11 12/10/2021 Active Additional Information Patient taking differently: Take 2 tablets by mouth twice daily08/18/23 Pt states 2 tablets in AM 1 tablet in evening, Reported on 08/18/2023 Fluticasone Propionate 50 MCG/ACT Nasal SuspensionIndicat ions:Chronic rhinitis,Dysfunct ion of left eustachian tube Administer into each nostril 2 Sprays in the morning. 18 mL 11 04/10/2022 Active Atorvastatin Calcium 40 MG Oral Tablet (Lipitor) Take 1 tablet by mouth once daily 90 Tablet 1 05/30/2022 Active metFORMIN HCl 500 MG Oral Tablet (Glucophage) TAKE 1 TABLET BY MOUTH TWICE DAILY WITH MORNING MEAL AND WITH EVENING MEAL 180 Tablet 0 05/30/2022 Active Levemir 100 UNIT/ML Subcutaneous Solution (insulin Detemir)Indicatio ns:Type 2 diabetes mellitus with hemoglobin A1c goal of less than 8.0% (HCC) Inject 75 Units under the skin at bedtime. 80 mL 3 07/18/2022 Active Gabapentin 100 MG Oral Capsule (Neurontin)Indica tions:DM type 2 with diabetic peripheral neuropathy (HCC) TAKE 1 CAPSULE BY MOUTH THREE TIMES DAILY 270 Capsule 3 08/21/2022 Active Lisinopril 20 MG Oral Tablet (Prinivil) Take 1 tablet by mouth once daily 90 Tablet 3 10/30/2022 Active Additional Information Patient taking differently: Takes in evening, Reported on 08/18/2023 Spironolactone 25 MG Oral Tablet (Aldactone)Indica tions:HTN, goal below 140/90 Take 0.5 Tablets by mouth in the morning. 45 Tablet 3 11/25/2022 Active Zolpidem Tartrate 10 MG Oral Tablet (Ambien) TAKE 1 TABLET BY MOUTH ONCE DAILY AT BEDTIME NEEDED FOR SLEEP 30 Tablet 5 03/17/2023 Active Pantoprazole Sodium 40 MG Oral Tablet Delayed Release (Protonix) TAKE 1 TABLET BY MOUTH TWICE DAILY DO NOT CUT, CRUSH OR CHEW 180 Tablet 1 03/16/2023 Active Jardiance 10 MG Oral Tablet (Empagliflozin) Take 1 tablet by mouth once daily 90 Tablet 3 03/31/2023 Active Terazosin HCl 2 MG Oral CapsuleIndication s:Paroxysmal atrial fibrillation (HCC),Atrial flutter (HCC),HTN, goal below 140/90 Take 1 capsule by mouth once daily at bedtime 90 Capsule 3 05/22/2023 Active cloNIDine HCl 0.3 MG Oral TabletIndications :HTN, goal below 140/90,Essential hypertension, benign Take 1 tablet by mouth twice daily 180 Tablet 3 05/22/2023 Active Additional Information Patient taking differently: Takes at 1200 at in evening, Reported on 08/18/2023 Dabigatran Etexilate Mesylate 150 MG Oral Capsule (Pradaxa)Indicati ons:Paroxysmal atrial fibrillation (HCC) Take 1 capsule by mouth twice daily 180 Capsule 1 06/01/2023 Active Victoza 18 MG/3ML Subcutaneous Solution Pen-injector (Liraglutide)Barb cations:Type 2 diabetes mellitus with hemoglobin A1c goal of less than 8.0% (HCC) INJECT 1.8 MG SUBCUTANEOUSLY ONCE DAILY 9 mL 3 05/30/2023 Active Levothyroxine Sodium 75 MCG Oral Tablet (Levoxyl)Indicati ons:Hypothyroidis m, unspecified type TAKE 1 TABLET BY MOUTH IN THE MORNING (AT LEAST 30 MINUTES PRIOR TO BREAKFAST OR OTHER MEDS) 90 Tablet 3 06/24/2023 Active Metoprolol Succinate ER 25 MG Oral Tablet Extended Release 24 Hour (toPROL XL)Indications:HT N, goal below 140/90,Permanent atrial fibrillation (HCC) Take 0.5 Tablets by mouth every evening. 90 Tablet 3 08/05/2023 Active Metoprolol Succinate ER 100 MG Oral Tablet Extended Release 24 Hour (toPROL XL) TAKE 1 TABLET BY MOUTH ONCE DAILY IN THE MORNING 90 Tablet 3 08/05/2023 Active Metoprolol Succinate ER 50 MG Oral Tablet Extended Release 24 Hour (toPROL XL) TAKE 1 TABLET BY MOUTH ONCE DAILY IN THE EVENING 90 Tablet 3 08/05/2023 Active Allopurinol 300 MG Oral Tablet (Zyloprim)Indicat ions:Gout Take 1 tablet by mouth once daily 30 Tablet 0 08/17/2023 Active documented as of this encounter (statuses as of 08/21/2023) Active Problems Problem Noted Date Diagnosed Date [...] as of this encounter (statuses as of 08/21/2023) Resolved Problems Problem Noted Date Diagnosed Date [...] as of this encounter (statuses as of 08/21/2023) Immunizations Name Administration Dates Next Due COVID-19 mRNA, LNP-s, No Pre serve, 2-Dose Series ([employer]) 10/10/2021,02/26/2021,09/10/2020,08/15 Covid-19, Mrna, Lnp-s, Pf, B ivalent, [...] Sign Reading Time Taken Comments Blood Pressure 109/74 08/18/2023 10:23 AM EST Pulse 87 08/18/2023 10:23 AM EST Temperature 36.6 C (97.9 F) 08/18/2023 1 0:18 AM EST Respiratory Rate 20 08/18/2023 10:1 8 AM EST Oxygen Saturation 94% 08/18/2023 10: 18 AM EST Inhaled Oxygen Concentration - - Weight 119.6 kg (263 lb 11.2 oz) 2023 10:18 AM EST Height - - Body Mass Index 35.27 04/29/2023 10:46 AM EST documented in this encounter Progress Notes * Naomi Sneed PA-C - 08/18/2023 10:30 AM EST NEPHROLOGY CLINIC NOTE Nephrology, [facility] [address] [place] [address] Patient Name: Renan Harris Patient Active Problem List Diagnosis Code Dyslipidemia E78.5 Type 2 diabetes mellitus with hemoglobin A1c goal of less than 8.0% ([facility]) E11.9 History of subarachnoid hemorrhage Z86.79 Alcohol dependence in remission ([facility]) F10.21 Routine general medical examination at a health care facility Z00.00 Gout M10.9 HTN, goal below 130/80 I10 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 Permanent atrial fibrillation ([facility]) I48.21 KARUNA (obstructive sleep apnea) G47.33 Morbid obesity due to excess calories ([facility]) E66.01 DM type 2 with diabetic peripheral neuropathy ([facility]) E11.42 Gastroesophageal reflux disease without esophagitis K21.9 Idiopathic hypothyroidism E03.9 Chronic edema R60.9 Venous stasis dermatitis of both lower extremities I87.2 Hypertensive kidney disease with stage 3b chronic kidney disease (HCC) I12.9, N18.32 Chronic insomnia F51.04 Chronic kidney disease, stage 3b ([facility]) N18.32 Heart failure ([facility]) I50.9 Other persistent atrial fibrillation ([facility]) I48.19 Dyslipidemia, goal LDL below 70 E78.5 BACKGROUND: 73 year old male presents for f/u of nonproteinuric CKD 3B. Medical history includes diabetes since his 20s and on insulin and metformin, hypertension since since his 20s with chronic volume overload since his 50s, paroxysmal atrial fibrillation, class 3 obesity, sleep apnea sleeps in recliner to tolerate CPAP -- stops 7-10 days at least once monthly b/c can't tolerate dryness, hyperlipidemia, migraines. Remote SAH; past hx of EtOH use. Fluid intake in a day: 3 x 12-16 oz diet tea and little else.Limits sodium intake. 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 using compression hose to control edema. Home blood pressure checks: has both upper arm and wrist. Reports just using the wrist cuff History of stones: no Family history of CKD or ESRD: no NSAID use: No Herbals/supplements: Magnesium Today 08/18/23 Denies any recent hospitalizations, procedures or infections. Denies any changes to medication No recent gout flares Stats using compression stocking everyday which has helped with edema Patient reports drinking 8 oz of water daily. Drinks mainly diet tea approx 24 oz REVIEW OF SYSTEMS General: No fatigue, Head: No significant headache Respiratory: No cough,No wheezing, No shortness of breath Cardiovascular:No chest pain, No palpitations, and No syncope, No falls Gastrointestinal: No nausea, vomiting, diarrhea No blood in stools Urinary: No dysuira, No hematuria. No flank pain Musculoskeletal: No edema but coninues with compression socks Skin: No itching All other systems were reviewed and were negative. Current Outpatient Medications Medication Sig Dispense Refill Insulin Syringe-Needle U-100 (BD INSULIN SYRINGE ULTRAFINE) [...] Please fit to patient. 2 Each 2 Blood Glucose Monitoring Suppl (ACCU-CHEK JASKARAN PLUS) w/Device KIT TEST BLOOD SUGAR EVERY DAY 1 Kit0 Glucose Blood (ACCU-CHEK JASKARAN PLUS) STRP Ck FS daily E 11.9 100 Strip 3 Prodigy Twist Top Lancets 28G CHECK FINGERSTICK BLOOD SUGAR THREE TIMES DAILY BEFORE MEALS 300 Each3 Sucralfate 1 GM Oral Tablet (Carafate) TAKE 1 TABLET BY MOUTH 4 TIMES DAILY 30 MINUTES BEFORE MEALSAND AT BEDTIME 360 Tablet 1 Torsemide 20 MG Oral Tablet (Demadex) Take 2 tablets by mouth twice daily (Patient taking differently: Take 2 tablets by mouth twice daily 08/18/23 Pt states 2 tablets in AM 1 tablet in evening) 360 Tablet 11 Fluticasone Propionate 50 MCG/ACT Nasal Suspension Administer into each nostril 2 Sprays in the morning. 18 mL 11 Atorvastatin Calcium 40 MG Oral Tablet (Lipitor) Take 1 tablet by mouth once daily 90 Tablet 1 metFORMIN HCl 500 MG Oral Tablet (Glucophage) TAKE 1 TABLET BY MOUTH TWICE DAILY WITH MORNING MEAL AND WITH EVENING MEAL 180 Tablet 0 Levemir 100 UNIT/ML Subcutaneous Solution (insulin Detemir) Inject 75 Units under the skin at bedtime. 80 mL 3 Gabapentin 100 MG Oral Capsule (Neurontin) TAKE 1 CAPSULE BY MOUTH THREE TIMES DAILY 270 Capsule 3 Lisinopril 20 MG Oral Tablet (Prinivil) Take 1 tablet by mouth once daily (Patient taking differently: Takes in evening) 90 Tablet 3 Spironolactone 25 MG Oral Tablet (Aldactone) Take 0.5 Tablets by mouth in the morning. 45 Tablet 3 Zolpidem Tartrate 10 MG Oral Tablet (Ambien) TAKE 1 TABLET BY MOUTH ONCE DAILY AT BEDTIME NEEDEDFOR SLEEP 30 Tablet 5 Pantoprazole Sodium 40 MG Oral Tablet Delayed Release (Protonix) TAKE 1 TABLET BY MOUTH TWICE DAILYDO NOT CUT, CRUSH OR CHEW 180 Tablet 1 Jardiance 10 MG Oral Tablet (Empagliflozin) Take [...] DAILY IN THE EVENING 90 Tablet 3 Allopurinol 300 MG Oral Tablet (Zyloprim) Take 1 tablet by mouth once daily 30 Tablet 0 SUMAtriptan (IMITREX) 50 MG Tablet Take 2 tablets at onset of migraine and one tablet every 2 hoursas needed, not more than 4 tablets in 24 hours (Patient not taking: Reported on 08/18/2023) 12 Tab 5 Hydrocortisone Acetate 25 MG Rectal Suppository (Anusol-HC) [...] Reported on 08/05/2023) 80 g 0 Nystatin-Triamcinolone 241433-7.1 UNIT/GM-% External Cream (Mycolog) APPLY CREAM TOPICALLY TO AFFECTED AREA TWICE DAILY FOR 2 WEEKS (Patient not taking: Reported on 08/18/2023) 60 g 2 No current facility-administered medications for this visit. PHYSICAL EXAMINATION Last 4 BP Readings: BP Readings from Last 4 Encounters: 08/18/23 109/74 08/05/23 114/72 05/21/23 100/62 04/29/23 108/64 Last 3 Weights: Wt Readings from Last 3 Encounters: 08/18/23 119.6 kg (263 lb 11.2 oz) 08/05/23 118.4 kg (261 lb) 05/21/23 118.8 kg (262 lb) BP 109/74 (BP Site: Right Arm, BP Position: Sitting, BP Cuff Size: Large) | Pulse 87 | Temp 36.6 C (97.9 F) (Tympanic) | Resp 20 | Wt 119.6 kg (263 lb 11.2 oz) | SpO2 94% | BMI 35.27 kg/m | BSA2.47 m Wt Readings from Last 1 Encounters: 08/18/23 119.6 kg (263 lb 11.2 oz) General appearance: alert, no apparent distress. Ambulatory without HEAD: Normocephalic, No masses, lesions, tenderness Respiratory: clear to auscultation and no wheezes Heart: regular rate and regular rhythm Abdomen: abdomen soft, non-tender, and no CVA tenderness EXTREMITIES: No edema, No cyanosis or clubbing Skin: skin color, texture, turgor are normal NEURO: alert & oriented x 3 with fluent speech, no focal motor/sensory deficits No tremor Patient is a reliable historian of events LABS: Latest Reference Range & Units 09/23/21 08:42 02/06/22 08:42 09/12/22 09:40 10/14/22 16:13 04/09/23 09:25 05/21/23 08:27 Sodium 135 - 146 mmol/L 141 141 141 142 143 Potassium 3.5 - 5.1 mmol/L 4.7 4.6 4.2 4.2 4.1 Chloride 98 - 107 mmol/L 100 102 104 100 102 CO2 22 - 32 mmol/L 28 28 26 28 30 BUN 6 - 20 mg/dL 26 (H) 29 (H) 32 (H) 26 (H) 23 (H) Creatinine 0.6 - 1.2 mg/dL 1.7 (H) 1.6 (H) 1.5 (H) 1.7 (H) 1.4 (H) 1.6 (H) Estimated Glomerular Filtration Rate >=60 mL/min 44 (L) 46 (L) 50 (L) 42 (L) 51 (L) 45 (L) Anion Gap 7 - 15 mmol/L 13 11 11 14 11 Glucose 70 - 120 mg/dL 116 110 150 (H) 83 105 Calcium 8.4 - 10.2 mg/dL 10.1 10.0 9.7 9.9 10.0 Magnesium 1.5 - 2.6 mg/dL 2.4 2.0 Phosphorus 2.5 - 4.8 mg/dL 4.0 3.7 (H): Data is abnormally high (L): Data is abnormally low Latest Reference Range & Units 01/03/20 15:42 04/24/20 10:16 11/09/20 15:14 02/06/22 08:43 09/12/22 09:41 Albumin / Creatinine Ratio, Urine <30 mg/g Creat 33 (H) <14 PROTEIN/CREAT RATIO <150 mg/g <93 Albumin, Random Urine mg/dL 4.82 <1.20 <1.20 <1.20 Protein, Random Urine mg/dL <4 (H): Data is abnormally high IMAGING: ASSESSMENT/PLAN: The patient's most recent labs (from 3 months ago) were reviewed and the assessment/plan is as follows: Stable CKD 3B with no proteinuria and acceptable chemistries. low ESRD risk Hypertension goal BP (blood pressure) < 130/80 (Primary) Blood pressure at goal-lifestyle measures encouraged particularly getting back to walking - URIC ACID; Future; Expected date: 08/18/2023 - MAGNESIUM; Future; Expected date: 08/18/2023 - PTH; Future; Expected date: 08/18/2023 - PHOSPHORUS; Future; Expected date: 08/18/2023 Stage 3b chronic kidney disease (HCC) Idiopathic gout, unspecified chronicity, unspecified site No interval attacks on allopurinol. Continue current dose and update labs Vitamin D deficiency Ongoing no longer taking Vit D Will update labs before considering whether to restart - PTH; Future; Expected date: 08/18/2023 - 25-HYDROXY VITAMIN D; Future; Expected date: 08/18/2023 Labs placed No changes to medications-continue SGLT 2 inhibitor though he is not proteinuric Avoid medicines like aleve, advil, ibuprofen, aspirin more than 81 mg daily and other NSAIDS which are not good for kidney patients. Take only tylenol (acetaminophen) up to 2000 mg daily as needed for pain or as directed by your primary care provider. Reviewed previous status of kidney function and goals of care. All questions were answered. Follow-up: Return in about 6 months (around 02/16/2024). | Check-out note: With Renay Sneed PA-C Nephrology, [address] [address] documented in this encounter Nursing Notes * Giovanna Mahan LPN - 08/18/2023 10:20 AM EST Patient identified by verbal name and date of . Return visit Pt has had no recent inpatient hospital stays or ED visits MOHS surgery 6 months ago denies SOB or lower extremity edema Pt does monitor BP at home Last labs 06/13 documented in this encounter Plan of Treatment Upcoming Encounters Date Type Department Care Team (Late st Contact Info) Description 10/19/2023 10:40 AM EDT Office Visit Family [facility] [address] [place] [address] Vishnu Allison MD [address] [place] [address] 02/29/2024 10:45 AM EDT Office Visit Dermatology [facility] [address] [facility] [place] [address] Adonis Kilgore MD [address] [facility] [place] [address] Scheduled Procedures Name Priority Associated Diagnoses Date/Ti [...] 12/18/2020, Additional history exists HbA1c 10/09/2023 04/09/2023, 0309/2022, 02/06/2022, Additional history exists Depression Screening 10/15/2023 10/14/2022 GFR 02/16/2024 08/18/2023, 11/3 , 04/09/2023, Additional history exists Diabetic Eye Exam 04/29/2024 04/29/2023, , 01/03/2020, Additional history exists Diabetic Foot Exam 04/29/2024 04/29/2023, 0 01/06/2022, 07/29/2017, Additional history exists CKD HGB USE SMARTSET 70007 05/21/202405/21, 09/12/2022, 02/06/2022, Additional history exists TSH 05/21/2024 05/21/2023, 08/21, 02/06/2022, Additional history exists CKD PHOS USE SMARTSET 96918 08/18/202407/24, 04/09/2023, 02/06/2022, Additional history exists Hepatitis [...] Not on filedocumented as of this encounter Results * PHOSPHORUS (08/18/2023 10:58 AM EST) Phosphorus 3.0 2.5 - 4.8 mg/dL 08/18/2023 11:54 AM EST [facility] 56-02 Blood Venous blood specimen / Unknown Venipuncture / Unknown 08/18/2023 10:58 AM EST 08/18/2023 10:58 AM EST Naomi Sneed PA-C LAB BLOOD ORD ERABLES [facility] [address] [place] [address] * (ABNORMAL) 25-HYDROXY VITAMIN D (08/18/2023 10:58 AM EST) 25-Hydroxy Vitamin D 13(L) >19 ng/mL 08/18/2023 8:33 PM EST [facility] [place] Blood Venous blood specimen / Unknown Venipuncture / Unknown 08/18/2023 10:58 AM EST 08/18/2023 10:58 AM EST Narrative [facility] - 08/18/2023 8:33 PM EST Deficient: <20 ng/mL Insufficient: 20-29 ng/mL Recommended/Optimum:30-50 ng/mL Vitamin D intoxication is rare. If suspicious of Vitamin D toxicity, evaluation of serum Calcium and PTH is recommended. Naomi Sneed PA-C LAB BLOOD ORD ERABLES [facility] [address] [place] [address] * (ABNORMAL) PTH (08/18/2023 10:58 AM EST) PTH 93(H) 15 - 65 pg/mL 08/18/2023 8:33 PM EST [facility] Blood Venous blood specimen / Unknown Venipuncture / Unknown 08/18/2023 10:58 AM EST 08/18/2023 10:58 AM EST Naomi Sneed PA-C LAB BLOOD ORD ERABLES Performing Organization Address City/[facility]/ZIP Co de Phone Number LAB[facility]AT[facility] [place] [address] [place] [address] * MAGNESIUM (08/18/2023 10:58 AM EST) Magnesium 2.0 1.5 - 2.6 mg/dL 08/18/2023 11:54 AM EST [facility] [place] 56-02 Blood Venous blood specimen / Unknown Venipuncture / Unknown 08/18/2023 10:58 AM EST 08/18/2023 10:58 AM EST Naomi Sneed PA-C LAB BLOOD ORD ERABLES [facility] [place] [address] [place] [address] * (ABNORMAL) URIC ACID (08/18/2023 10:58 AM EST) Uric Acid 7.1(H) 3.4 - 7.0 mg/dL 08/18/2023 7:53 PM EST [facility] Blood Venous blood specimen / Unknown Venipuncture / Unknown 08/18/2023 10:58 AM EST 08/18/2023 10:58 AM EST Naomi Sneed PA-C LAB BLOOD ORD ERABLES [facility] [address] [facility] [address] documented in this encounter Visit Diagnoses Diagnosis Hypertension goal BP (blood pressure) < 130/80- Primary Unspecified essential hypertension Stage 3b chronic kidney disease (HCC) Idiopathic gout, unspecified chronicity, unspecified site Vitamin D deficiency Unspecified vitamin D deficiency documented in this [...] the patient have Health Care Power of Territory Outside Sales Manager? No Care Teams Plant Controller Relationship Specialty Start Date End Date Vishnu Allison MD [address] [place] [id number] PCP - General Family Medicine 06/02/14 documented as of this encounter
--- OUTSIDE RECORDS SUMMARY | 2023-12-03 10:51 | External Medical Summary | Summary of Care ---
Author Name Unknown Organization [facility] Address [address] [facility] [place] [address] Phone [phone] Care Team Providers Care Reuse Technician Name Role Phone Vishnu Allison MD Primary Care Provider + Reason for Visit * Reason Onset Date Comments Medication Refill 08/24/2023 Encounter Details Date Type Department Care Team (Late st Contact Info) Description 08/24/2023 Refill Cardiology [facility] [address] [place] [address] Claire Ureña PA-C [address] [place] [phone] HTN, goal below 140/90*; Permanent atrial fibrillation (HCC) Allergies Active Allergy Reactions Criticality Noted Date Comments Amiodarone Rash 10/08/2018 Sildenafil Citrate 06/20/2014 Severe SPAULDING, flushed feeling Simvastatin 12/05/2005 Myalgias arthralgias documented as of this encounter (statuses as of 08/25/2023) Medications Medication Sig Dispensed Refills Start Date [...] Patient not taking.Reported on 08/05/2023 Nystatin-Triamcin olone 239532-3.1 UNIT/GM-% External Cream (Mycolog)Indicati ons:Cutaneous candidiasis APPLY [...] as of this encounter (statuses as of 08/25/2023) Active Problems Problem Noted Date Diagnosed Date [...] as of this encounter (statuses as of 08/25/2023) Resolved Problems Problem Noted Date Diagnosed Date [...] 10/23/2016 Overview: 11/02 CT sinus/brain at [facility] shows left maxillary sinusitis. S/p amox, [...] as of this encounter (statuses as of 08/25/2023) Immunizations Name Administration Dates Next Due COVID-19 mRNA, LNP-s, No Pre serve, 2-Dose Series (Stro[employer]) 10/10/2021,02/26/2021,09/10/2020,08/15 Covid-19, Mrna, Lnp-s, Pf, B ivalent, [...] Miscellaneous Notes * Telephone Encounter - Claire Ureña PA-C - 08/25/2023 10:26 AM EST Signed Prescriptions: Disp Refills Torsemide 20 MG Oral Tablet (Demadex) 360 Ta*3 Sig: Take 2 tablets by mouth twice dailyAuthorizing Provider: CLAIRE UREÑA * Telephone Encounter - Yadira Goldsmith COT - 08/25/2023 9:18 AM ESTPending Prescriptions: Disp Refills Torsemide 20 MG Oral Tablet (Demadex) 360 Ta*3 Sig: Take 2 tablets by mouth twice daily * Telephone Encounter - Bell Bee, sas programmer - 08/24/2023 10:23 AM EST Patient is [...] was ordered: 12/10/2021 Pharmacy: [facility] [address] [place] [address] Is this request for a controlled substance?No [...] specialty line. Thank you, Maranda Guevara CPhT Theater Projectionist II [facility] ([facility] (Formerly [facility]) 08/24/2023,10:15 AM documented in this encounter Plan of Treatment Upcoming Encounters Date Type Department Care Team (Late st Contact Info) Description 10/19/2023 10:40 AM EDT Office Visit Family Practice [facility] [address] [facility] [place] [address] Vishnu Allison MD [address] [facility] [place] [address] 02/29/2024 10:45 AM EDT Office Visit Dermatology [facility] [address] [facility] [place] [address] Adonis Kilgore MD 200 [facility] [place] [address] Scheduled Procedures Name Priority Associated Diagnoses Date/Ti [...] 12/18/2020, Additional history exists HbA1c 10/09/2023 04/09/2023, 2 09/2022, 02/06/2022, Additional history exists Depression Screening 10/15/2023 10/14/2022 GFR 02/16/2024 08/18/2023, 04/24, 04/09/2023, Additional history exists Diabetic Eye Exam 04/29/2024 04/29/2023, , 01/03/2020, Additional history exists Diabetic Foot Exam 04/29/2024 04/29/2023, 0 01/06/2022, 07/29/2017, Additional history exists CKD HGB USE SMARTSET 63625 05/21/202405/21, 09/12/2022, 02/06/2022, Additional history exists TSH 05/21/2024 05/21/2023, 08/21, 02/06/2022, Additional history exists CKD PHOS USE SMARTSET 03743 08/18/202407/24, 04/09/2023, 02/06/2022, Additional history exists Hepatitis [...] the patient have Health Care Power of Food Writer? No Care Teams Reuse Technician Relationship Specialty Start Date End Date Vishnu Allison MD [address] [place] [address] PCP - General Family Medicine 06/02/14 documented as of this encounter
--- OUTSIDE RECORDS SUMMARY | 2023-12-03 10:51 | External Medical Summary | Summary of Care ---
Author Name Unknown Organization [facility] Address [address] [facility] [address] Phone [phone] Care Team Providers Care Offal Separator Name Role Phone Vishnu Allison MD Primary Care Provider + Reason for Visit * Reason Onset Date Comments Test Results 08/21/2023 Encounter Details Date Type Department Care Team (Late st Contact Info) Description 08/21/2023 Telephone Nephrology, Guillermina Duque [address] [place] [address] ZemaitisNaomi PA-C [address] [place] [address] Test Results Allergies Active Allergy Reactions Criticality [...] Patient not taking.Reported on 08/05/2023 Nystatin-Triamcin olone 368818-0.1 UNIT/GM-% External Cream (Mycolog)Indicati ons:Cutaneous candidiasis APPLY [...] once daily 30 Tablet 0 08/17/2023 Active Vitamin D 50 MCG (1999) Oral CapsuleIndication s:Vitamin D deficiency Take 2,000 Units by mouth in the morning. 90 Capsule 0 08/21/2023 Active documented as of this encounter (statuses [...] 10/26/2013 10/23/2016 Overview: 11/02 CT sinus/brain at [facility] shows left maxillary sinusitis. S/p [...] mRNA, LNP-s, No Pre serve, 2-Dose Series ([employer]) 10/10/2021,02/26/2021,09/10/2020,08/15 Covid-19, Mrna, Lnp-s, Pf, B ivalent, [...] encounter Miscellaneous Notes * Telephone Encounter - Aurora Scales RN - 08/21/2023 11:01 AM EST Te with pt regarding lab results. He states he was briefly out of the Allopurinol but has resumed it at this time. Aware to restart Vitamin D and repeat lab tests in 3 months. Orders placed by provider. * Telephone Encounter - Naomi Sneed PA-C - 08/21/2023 1:11 AM EST Patient with continue Vit D deficiency Will restart Vit D and reassess labs in 3 months Please inquire if patient is taking allopurinol for gout Any recent gout flares-uric acid levels recently elevated Naomi Sneed PA-C documented in this encounter Plan of Treatment Upcoming Encounters Date Type Department Care Team (Late st Contact Info) Description 10/19/2023 10:40 AM EDT Office Visit Family Practice [facility] [address] [place] [address] Vishnu Allison MD [address] [place] [address] 02/29/2024 10:45 AM EDT Office Visit Dermatology [facility] [address] [facility] [place] [address] Adonis Kilgore MD [address] [facility] [place] [address] Scheduled Orders Name Type Priority Associated Diagnoses Orde r Schedule 25-HYDROXY VITAMIN D Lab Routine Vitamin D deficiency Expected: 11/21/2023, Expires: 08/20/2024 Scheduled Procedures Name Priority Associated [...] Additional history exists CKD HGB USE SMARTSET 18405 05/21/202405/21, 09/12/2022, 02/06/2022, Additional history exists TSH 05/21/2024 05/21/2023, 08/21, 02/06/2022, Additional history exists CKD PHOS USE SMARTSET 88916 08/18/202407/24, 04/09/2023, 02/06/2022, Additional history exists Hepatitis [...] patient have Health Care Power of Food Server? No Care Teams Offal Separator Relationship Specialty Start Date End Date Vishnu Allison MD [address] [place] [address] PCP - General Family Medicine 06/02/14 documented as of this encounter
--- OUTSIDE RECORDS SUMMARY | 2023-12-03 10:51 | External Medical Summary | Summary of Care ---
Author Name Unknown Organization [facility] Address [address] [place] [address] Phone [phone] Care Team Providers Care Food And Nutrition Services Assistant Name Role Phone Vishnu Allison MD Primary Care Provider + Encounter Details Date Type Department Care Team (Late st Contact Info) Description 09/10/2023 Orders Only PATIENT PORTAL DO NOT DELETE THIS DEPT USED BY [place] [id number] Allergies Active Allergy Reactions Criticality Noted Date Comments Amiodarone Rash 10/08/2018 Sildenafil Citrate 06/20/2014 Severe SPAULDING, flushed feeling Simvastatin 12/05/2005 Myalgias arthralgias documented as of this encounter (statuses as of 09/10/2023) Medications Medication Sig Dispensed Refills Start Date [...] Patient not taking.Reported on 08/05/2023 Nystatin-Triamcin olone 625984-1.1 UNIT/GM-% External Cream (Mycolog)Indicati ons:Cutaneous candidiasis APPLY CREAM TOPICALLY TO AFFECTED AREA TWICE DAILY FOR 2 WEEKS 60 g 2 03/09/2021 Active Additional Information Patient not taking.Reported on 08/18/2023 Sucralfate 1 GM Oral Tablet (Carafate)Indicat ions:Dyspepsia,Ga stroesophageal reflux disease with esophagitis TAKE 1 TABLET BY MOUTH 4 TIMES DAILY 30 MINUTES BEFORE MEALS AND AT BEDTIME 360 Tablet 1 06/12/2021 Active Fluticasone Propionate 50 MCG/ACT Nasal SuspensionIndicat [...] hemoglobin A1c goal of less than 8.0% ([facility]) Inject 75 Units under the skin at [...] the morning. 45 Tablet 3 11/25/2022 Active Pantoprazole Sodium 40 MG Oral Tablet [...] 0 08/17/2023 Active Vitamin D 50 MCG (2000 UT) Oral CapsuleIndication s:Vitamin D deficiency Take 2,000 Units by mouth in the morning. 90 Capsule 0 08/21/2023 Active Torsemide 20 MG Oral Tablet (Demadex)Indicati ons:HTN, goal below 140/90,Permanent atrial fibrillation (HCC) Take 2 tablets by mouth twice daily 360 Tablet 3 08/25/2023 Active Zolpidem Tartrate 10 MG Oral Tablet (Ambien) TAKE 1 TABLET BY MOUTH ONCE DAILY AT BEDTIME NEEDED FOR SLEEP 30 Tablet 5 09/08/2023 Active documented as of this encounter (statuses as of 09/10/2023) Active Problems Problem Noted Date Diagnosed Date [...] as of this encounter (statuses as of 09/10/2023) Resolved Problems Problem Noted Date Diagnosed Date [...] Overview: 11/02 CT sinus/brain at [facility] shows left maxillary sinusitis. S/p amox, given [...] as of this encounter (statuses as of 09/10/2023) Immunizations Name Administration Dates Next Due COVID-19 mRNA, LNP-s, No Pre serve, 2-Dose Series ([employer]) 10/10/2021,02/26/2021,09/10/2020,08/15 Covid-19, Mrna, Lnp-s, Pf, B ivalent, [...] 10:40 AM EDT Office Visit Family Practice [facility] [address] [place] [address] Vishnu Allison MD [address] [place] [address] 02/29/2024 10:45 AM EDT Office [facility] [address] [place] [address] Adonis Kilgore MD [address] [place] [address] Scheduled Procedures Name Priority Associated Diagnoses Date/Ti [...] Additional history exists CKD HGB USE SMARTSET 53641 05/21/202405/21, 09/12/2022, 02/06/2022, Additional history exists TSH 05/21/2024 05/21/2023, 08/21, 02/06/2022, Additional history exists CKD PHOS USE SMARTSET 41933 08/18/202407/24, 04/09/2023, 02/06/2022, Additional history exists Hepatitis [...] the patient have Health Care Power of Senior Sales Engineer? No Care Teams Food And Nutrition Services Assistant Relationship Specialty Start Date End Date Vishnu Allison MD [address] [place] [address] PCP - General Family Medicine 06/02/14 documented as of this encounter
--- OUTSIDE RECORDS SUMMARY | 2023-12-03 10:52 | External Medical Summary | Summary of Care ---
Author Name Unknown Organization [facility] Address [address] [place] [address] Phone [phone] Care Team Providers Care Financial Engineer Name Role Phone Vishnu Allison MD Primary Care Provider + Reason for Visit * Reason Onset Date Comments Appointment 08/17/2023 Encounter Details Date Type Department Care Team (Late st Contact Info) Description 08/17/2023 Telephone Nephrology, Guillermina Duque [address] [place] [address] Santa Niño MD [address] [place] [address] Appointment Allergies Active Allergy Reactions Criticality Noted Date Comments Amiodarone Rash 10/08/2018 Sildenafil Citrate 06/20/2014 Severe SPAULDING, flushed feeling Simvastatin 12/05/2005 Myalgias arthralgias documented as of this encounter (statuses as of 08/17/2023) Medications Medication Sig Dispensed Refills Start Date [...] 24 hours 12 Tab 5 07/04/2019 Active Blood Glucose Monitoring Suppl (ACCU-CHEK JASKARAN [...] 2 weeks. 24 Suppository 1 12/18/2020 Active Triamcinolone Acetonide 0.1 % External Cream (Aristocort) APPLY CREAM EXTERNALLY TO AFFECTED AREA TWICE DAILY TO LEGS 80 g 0 01/31/2021 Active Additional Information Patient not taking.Reported on 08/05/2023 Nystatin-Triamcin olone 554503-1.1 UNIT/GM-% External Cream (Mycolog)Indicati ons:Cutaneous candidiasis APPLY CREAM TOPICALLY TO AFFECTED AREA TWICE DAILY FOR 2 WEEKS 60 g 2 03/09/2021 Active Sucralfate 1 GM Oral Tablet (Carafate)Indicat ions:Dyspepsia,Ga stroesophageal reflux disease with esophagitis TAKE 1 TABLET BY MOUTH 4 TIMES DAILY 30 MINUTES BEFORE MEALS AND AT BEDTIME 360 Tablet 1 06/12/2021 Active Torsemide 20 MG Oral Tablet (Demadex) Take 2 tablets by mouth twice daily 360 Tablet 11 12/10/2021 Active Fluticasone Propionate 50 MCG/ACT Nasal SuspensionIndicat [...] once daily 90 Tablet 3 10/30/2022 Active Spironolactone 25 MG Oral Tablet (Aldactone)Indica [...] once daily 90 Tablet 3 03/31/2023 Active Allopurinol 300 MG Oral Tablet (Zyloprim) Take 1 tablet by mouth once daily 90 Tablet 0 04/06/2023 Active Terazosin HCl 2 MG Oral CapsuleIndication s:Paroxysmal atrial fibrillation (HCC),Atrial flutter (HCC),HTN, goal below 140/90 Take 1 capsule by mouth once daily at bedtime 90 Capsule 3 05/22/2023 Active cloNIDine HCl 0.3 MG Oral TabletIndications :HTN, goal below 140/90,Essential hypertension, benign Take 1 tablet by mouth twice daily 180 Tablet 3 05/22/2023 Active Dabigatran Etexilate Mesylate 150 MG Oral Capsule [...] THE EVENING 90 Tablet 3 08/05/2023 Active documented as of this encounter (statuses as of 08/17/2023) Active Problems Problem Noted Date Diagnosed Date [...] 2017 KARUNA (obstructive sleep apnea) 02/21/2016 Overview: 8/23/16 PSG: AHI 11.5/RDI 15.7, <89% 55 mins [...] as of this encounter (statuses as of 08/17/2023) Resolved Problems Problem Noted Date Diagnosed Date [...] 10/26/2013 10/23/2016 Overview: 11/02 CT sinus/brain at [facility] shows left maxillary sinusitis. S/p amox, [...] as of this encounter (statuses as of 08/17/2023) Immunizations Name Administration Dates Next Due COVID-19 mRNA, LNP-s, No Pre serve, 2-Dose Series ([employer]) 10/10/2021,02/26/2021,09/10/2020,08/15 Covid-19, Mrna, Lnp-s, Pf, B ivalent, [...] Telephone Encounter - Aurora Scales RN - 08/17/2023 8:20 AM EST Cell Operation Supervisor-Please reach out to pt to reschedule with Dr Niño. Has not been seen x 1 year. documented in this encounter Plan of Treatment Upcoming Encounters Date Type Department Care Team (Late st Contact Info) Description 10/19/2023 10:40 AM EDT Office Visit Family Practice [facility] [address] [place] [address] Vishnu Allison MD [address] [facility] [address] 02/29/2024 10:45 AM EDT Office Visit Dermatology [facility] [address] [facility] [place] [address] Adonis Kilgore MD [address] [facility] [place] [address] Scheduled Procedures Name Priority Associated Diagnoses Date/Ti [...] history exists Depression Screening 10/15/2023 10/14/2022 GFR 11/19/2023 05/21/2023, 03/22, 10/14/2022, Additional history exists CKD PHOS USE SMARTSET 72947 04/09/202403/22, 02/06/2022, 06/19/2021, Additional history exists Diabetic Eye Exam 04/29/2024 04/29/2023, , 01/03/2020, Additional history exists Diabetic Foot Exam 04/29/2024 04/29/2023, 0 01/06/2022, 07/29/2017, Additional history exists CKD HGB USE SMARTSET 17625 05/21/202405/21, 09/12/2022, 02/06/2022, Additional history exists TSH 05/21/2024 05/21/2023, 08/21, 02/06/2022, Additional history exists Hepatitis B Completed [...] the patient have Health Care Power of Air Conditioning Manager? No Care Teams Financial Engineer Relationship Specialty Start Date End Date Vishnu Allison MD [address] [place] [address] PCP - General Family Medicine 06/02/14 documented as of this encounter
--- OUTSIDE RECORDS SUMMARY | 2023-12-03 10:52 | External Medical Summary ---
Author Name Unknown Address Unknown Organization [facility] [place] [address] Laboratory Report Ordering Provider Test Date Status JOSSELYN TRUJILLO 08/18/2023 10:58:37 Final Observation Date Value Abnormality Reference (Units ) Status Magnesium 08/18/2023 10:58:37 2.0 1.5-2.6 (m g/dL) Final Performing Location [facility] [place] [address]
--- OUTSIDE RECORDS SUMMARY | 2023-12-03 10:52 | External Medical Summary ---
Author Name Unknown Address Unknown Organization [facility] [place] [address] Laboratory Report Ordering Provider Test Date Status KELY TRUJILLOITIS 08/18/2023 10:58:37 Final Observation Date Value Abnormality Reference (Units ) Status Phosphate 08/18/2023 10:58:37 3.0 2.5-4.8 (m g/dL) Final Performing Location [facility] [place] [address]
--- OUTSIDE RECORDS SUMMARY | 2023-12-03 10:52 | External Medical Summary | Summary of Care ---
Author Name Unknown Organization [facility] Address [address] [facility] [place] [address] Phone [phone] Care Team Providers Care Nail Feeder Name Role Phone Vishnu Allison MD Primary Care Provider + Reason for Visit * Reason Onset Date Comments Test Results 08/18/2023 Encounter Details Date Type Department Care Team (Late st Contact Info) Description 08/18/2023 Telephone Cardiology [facility] [address] [place] [phone] Claire Ureña PA-C [address] [place] [id number] Test Results Allergies Active Allergy Reactions Criticality Noted Date Comments Amiodarone Rash 10/08/2018 Sildenafil Citrate 06/20/2014 Severe SPAULDING, flushed feeling Simvastatin 12/05/2005 Myalgias arthralgias documented as of this encounter (statuses as of 08/18/2023) Medications Medication Sig Dispensed Refills Start Date [...] Patient not taking.Reported on 08/05/2023 Nystatin-Triamcin olone 708756-5.1 UNIT/GM-% External Cream (Mycolog)Indicati ons:Cutaneous candidiasis APPLY [...] as of this encounter (statuses as of 08/18/2023) Active Problems Problem Noted Date Diagnosed Date [...] as of this encounter (statuses as of 08/18/2023) Resolved Problems Problem Noted Date Diagnosed Date [...] 10/26/2013 10/23/2016 Overview: 11/02 CT sinus/brain at [facility] shows left maxillary sinusitis. S/p [...] as of this encounter (statuses as of 08/18/2023) Immunizations Name Administration Dates Next Due COVID-19 mRNA, LNP-s, No Pre serve, 2-Dose Series ([employer]) 10/10/2021,02/26/2021,09/10/2020,08/15 Covid-19, Mrna, Lnp-s, Pf, B ivalent, 30 Mcg, IM, 12 yrs and above ([employer]) 03/13/2022 Hepatitis B, 20+ yrs 07/05/2015,01/16/2014,12/13 Pneumococcal [...] encounter Miscellaneous Notes * Telephone Encounter - Valeria Ricardo CMA - 08/18/2023 3:56 PM EST Letter mailed. * Telephone Encounter - Valeria Ricardo CMA - 08/18/2023 3:55 PM EST ----- Message from Claire Ureña PA-C sent at 08/18/2023 12:26 PM EST ----- Kidney function improved, normal electrolytes. No changes. documented in this encounter Plan of Treatment Upcoming Encounters Date Type Department Care Team (Late st Contact Info) Description 10/19/2023 10:40 AM EDT Office Visit Family [facility] [address] [place] [address] Vishnu Allison MD [address] [place] [address] 02/29/2024 10:45 AM EDT Office Visit D[facility]atology [facility] [address] [place], [place] [address] Adonis Kilgore MD [address] [facility] [place] [address] Scheduled Procedures Name Priority Associated Diagnoses Date/Ti [...] 02/16/2024 08/18/2023, 04/24, 04/09/2023, Additional history exists CKD PHOS USE SMARTSET 08423 04/09/20242 12/2023, 04/09/2023, 02/06/2022, Additional history exists Diabetic Eye Exam 04/29/2024 04/29/2023, , 01/03/2020, Additional history exists Diabetic Foot Exam 04/29/2024 04/29/2023, 0 01/06/2022, 07/29/2017, Additional history exists CKD HGB USE SMARTSET 63891 05/21/202405/21, 09/12/2022, 02/06/2022, Additional history exists TSH [...] the patient have Health Care Power of Media Coordinator? No Care Teams Nail Feeder Relationship Specialty Start Date End Date Vishnu Allison MD [address] [place] [address] PCP - General Family Medicine 06/02/14 documented as of this encounter
--- OUTSIDE RECORDS SUMMARY | 2023-12-03 10:52 | External Medical Summary ---
Author Name Unknown Address Unknown Organization [facility] [place] [address] Laboratory Report Ordering Provider Test Date Status DIANE LI 08/18/2023 10:58:37 Final Observation Date Value Abnormality Reference (Units ) Status BUN 08/18/2023 10:58:37 19 6-20 (mg/dL) Final Creatinine 08/18/2023 10:58:37 1.2 0.6-1.2 (mg/dL) Final Glomerular filtration rate/1.73 sq M.predicted [Volume Rate/Area] in Serum, Plasma or Blood by Creatinine-based formula (CKD-EPI) 08/18/2023 10:58:37 64 >=60 (mL/min) Final eGFR is calculated based on the CKD-EPI 2020 equation SODIUM 08/18/2023 10:58:37 141 135-146 (m mol/L) Final Potassium 08/18/2023 10:58:37 4.6 3.5-5.1 (m mol/L) Final Cl 08/18/2023 10:58:37 104 98-107 (mm ol/L) Final CO2 08/18/2023 10:58:37 25 22-32 (mmo l/L) Final Anion gap 08/18/2023 10:58:37 12 7-15 (mmol /L) Final Glucose 08/18/2023 10:58:37 180 Above high normal 70 -120 (mg/dL) Final Calcium 08/18/2023 10:58:37 10.2 8.4-10.2 ( mg/dL) Final Performing Location [facility] [place] [address]
--- OUTSIDE RECORDS SUMMARY | 2023-12-03 10:52 | External Medical Summary | Summary of Care ---
Author Name Unknown Organization [facility] Address [address] [place] [address] Phone [phone] Care Team Providers Care Steamfitter Supervisor Name Role Phone Vishnu Allison MD Primary Care Provider + Reason for Visit * Reason Comments Follow Up Encounter Details Date Type Department Care Team (Late st Contact Info) Description 08/05/2023 1:30 PM EST Office Visit Cardiology, [facility] [address] [facility] [place] [id number] Claire Ureña PA-C [address] [place] [address] Permanent atrial fibrillation (HCC)*; Palpitations; HTN, goal below 140/90; Non-ischemic cardiomyopathy (HCC) Allergies Active Allergy Reactions Criticality Noted Date Comments Amiodarone Rash 10/08/2018 Sildenafil Citrate 06/20/2014 Severe SPAULDING, flushed feeling Simvastatin 12/05/2005 Myalgias arthralgias documented as of this encounter (statuses as of 08/05/2023) Medications Medication Sig Dispensed Refills Start Date [...] hours 12 Tab 5 07/04/19 20 Active Blood Glucose Monitoring Suppl (ACCU-CHEK JASKARAN [...] weeks. 24 Suppository 1 12/19/19 21 Active Triamcinolone Acetonide 0.1 % External Cream (Aristocort) APPLY CREAM EXTERNALLY TO AFFECTED AREA TWICE DAILY TO LEGS 80 g 0 02/01/20 21 Active Additional Information Patient not taking.Reported on 08/05/2023 Nystatin-Triamci nolone 316994-2.1 UNIT/GM-% External Cream (Mycolog)Indicat ions:Cutaneous candidiasis APPLY CREAM TOPICALLY TO AFFECTED AREA TWICE DAILY FOR 2 WEEKS 60 g 2 03/09/20 21 Active Sucralfate 1 GM Oral Tablet (Carafate)Indica tions:Dyspepsia, Gastroesophageal reflux disease with esophagitis TAKE 1 TABLET BY MOUTH 4 TIMES DAILY 30 MINUTES BEFORE MEALS AND AT BEDTIME 360 Tablet 1 06/12/20 21 Active Torsemide 20 MG Oral Tablet (Demadex) Take 2 tablets by mouth twice daily 360 Tablet 11 12/11/19 22 Active Fluticasone Propionate 50 MCG/ACT Nasal SuspensionIndica [...] daily 90 Tablet 3 10/31/19 23 Active Spironolactone 25 MG Oral Tablet (Aldactone)Indic ations:HTN, goal below 140/90 Take 0.5 Tablets by mouth in the morning. 45 Tablet 3 11/26/19 23 Active Zolpidem Tartrate 10 MG Oral Tablet (Ambien) TAKE 1 TABLET BY MOUTH ONCE DAILY AT BEDTIME NEEDED FOR SLEEP 30 Tablet 5 03/17/20 23 Active Pantoprazole Sodium 40 MG Oral Tablet Delayed Release (Protonix) TAKE 1 TABLET BY MOUTH TWICE DAILY DO NOT CUT, CRUSH OR CHEW 180 Tablet 1 03/16/20 23 Active Jardiance 10 MG Oral Tablet (Empagliflozin) Take 1 tablet by mouth once daily 90 Tablet 3 03/31/20 23 Active Allopurinol 300 MG Oral Tablet (Zyloprim) Take 1 tablet by mouth once daily 90 Tablet 0 04/06/20 23 Active Terazosin HCl 2 MG Oral CapsuleIndicatio ns:Paroxysmal atrial fibrillation (HCC),Atrial flutter (HCC),HTN, goal below 140/90 Take 1 capsule by mouth once daily at bedtime 90 Capsule 3 05/22/20 23 Active cloNIDine HCl 0.3 MG Oral TabletIndication s:HTN, goal below 140/90,Essential hypertension, benign Take 1 tablet by mouth twice daily 180 Tablet 3 05/22/20 23 Active Dabigatran Etexilate Mesylate 150 MG Oral [...] EVENING 90 Tablet 3 08/05/19 24 Active Ketoconazole 2 % External Shampoo (Nizoral)Indicat ions:Seborrheic dermatitis of scalp Lather into scalp for 5 minutes in the shower then rinse. Do this 3 times per week 120 mL 11 02/21/20 23 024 Discontinued Metoprolol Succinate ER 100 MG Oral Tablet Extended Release 24 Hour (toPROL XL) TAKE 1 TABLET BY MOUTH ONCE DAILY IN THE MORNING 90 Tablet 3 05/21/20 23 024 Discontinued(Re fill) Metoprolol Succinate ER 50 MG Oral Tablet Extended Release 24 Hour (toPROL XL) TAKE 1 TABLET BY MOUTH ONCE DAILY IN THE EVENING 90 Tablet 3 05/21/20 23 024 Discontinued(Re fill) Metoprolol Succinate ER 25 MG Oral Tablet Extended Release 24 Hour (toPROL XL)Indications:H TN, goal below 140/90,Permanent atrial fibrillation (HCC) TAKE 1 TABLET BY MOUTH ONCE DAILY IN THE EVENING 90 Tablet 3 05/21/20 23 024 Discontinued documented as of this encounter (statuses as of 08/05/2023) Active Problems Problem Noted Date Diagnosed Date [...] as of this encounter (statuses as of 08/05/2023) Resolved Problems Problem Noted Date Diagnosed Date [...] 10/23/2016 Overview: 11/02 CT sinus/brain at [facility] shows left maxillary sinusitis. S/p amox, [...] as of this encounter (statuses as of 08/05/2023) Immunizations Name Administration Dates Next Due COVID-19 mRNA, LNP-s, No Pre serve, 2-Dose Series ([employer]) 10/10/2021,02/26/2021,09/10/2020,08/15 Covid-19, Mrna, Lnp-s, Pf, B ivalent, 30 Mcg, IM, 12 yrs and above ([employer]) 03/13/2022 Hepatitis B, 20+ yrs 07/05/2015,01/16/2014,12/13 Pneumococcal [...] Date Smoking Tobacco: Never Smokeless Tobacco: Never Tobacco Cessation:Counseling Given: Not Answered Alcohol Use Standard Drinks/Week Comments No 0 [...] Sign Reading Time Taken Comments Blood Pressure 114/72 08/05/2023 11:44 AM EST Pulse 92 08/05/2023 11:44 AM EST Temperature - - Respiratory Rate - - Oxygen Saturation 94% 08/05/2023 11:44 AM EST Inhaled Oxygen Concentration - - Weight 118.4 kg (261 lb) 08/05/2023 11:44 AM EST Height - - Body Mass Index 34.91 04/29/2023 10:46 AM EST documented in this encounter Progress Notes * Claire Ureña PA-C - 08/05/2023 11:38 AM EST 08/05/2023 Cardiology Follow Up Past Medical History: 1. PAF initially diagnosed around 2014; on sotalol about 6-8 episodes requiring DCCV x2 02/12/2018 & 02/02/2018 digoxin was added; on Pradaxa [id number] 3 (age, HTN, DM); recurrent episode 04/2018 had DCCV but reoccurred about 10 minutes later so started on amiodarone 04/2018, amiodarone discontinued due to significant rash September 2018. At that time continued on metoprolol alone. 3. 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 HTN 5. HLD 6. DM 7. KARUNA on CPAP 8. Obesity 9. H/O ETOH dependence in remission 10. 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 HPI: Renan Harris is a 73 year old male who presents for cardiology follow up. Presents today overall feeling well. Palpitations still occurring, but not frequent or bothersome. Denies chest pain, shortness of breath, edema, PND, orthopnea, lightheadedness, syncope. Compliant with all medications. Staying well hydrated, always has a cup of water near him. Denies recent illness or hospitalizations. REVIEW OF SYSTEMS: See HPI for pertinent positives. All others negative other than those noted in the HPI. CONSTITUTIONAL: No change in weight, No weakness, No fatigue and No fevers, No sweats or chills. PULMONARY: No cough, sputum, or hemoptysis, No wheezing, No shortness of breath and No recent change in breathing. CARDIOVASCULAR: No chest pain, No dyspnea on exertion, No edema, + palpitations and No syncope. GASTROINTESTINAL: No abdominal pain, No change in bowel habits, No significant heartburn, No nausea, No vomiting, No diarrhea, No constipation, No blood in stools or black tarry stools. No dysphagia. HEMATOLOGIC: No abnormal bleeding and No bruising. NEUROLOGICAL: Normal balance, No headaches and No weakness. Review of patient's allergies indicates: Allergen Reactions Amiodarone Rash Viagra [Sildenafil Citrate] Severe SPAULDING, flushed feeling Zocor [Simvastatin] Myalgias arthralgias Current Outpatient Medications Medication Sig Dispense Refill [...] Up to 2 weeks. 24 Suppository 1 Nystatin-Triamcinolone 639132-9.1 UNIT/GM-% External Cream (Mycolog) APPLY CREAM TOPICALLY TO AFFECTED AREA TWICE DAILY FOR 2 WEEKS 60 g 2 Sucralfate 1 GM Oral Tablet (Carafate) TAKE 1 TABLET BY MOUTH 4 TIMES DAILY 30 MINUTES BEFORE MEALSAND AT BEDTIME 360 Tablet 1 Torsemide 20 MG Oral Tablet (Demadex) Take 2 tablets by mouth twice daily 360 Tablet 11 Fluticasone Propionate 50 MCG/ACT [...] by mouth once daily 90 Tablet 3 Spironolactone 25 MG Oral [...] by mouth once daily 90 Tablet 3 Allopurinol 300 MG Oral Tablet (Zyloprim) Take 1 tablet by mouth once daily 90 Tablet 0 Terazosin HCl 2 MG Oral Capsule Take 1 capsule by mouth once daily at bedtime 90 Capsule 3 cloNIDine HCl 0.3 MG Oral Tablet Take 1 tablet by mouth twice daily 180 Tablet 3 Dabigatran Etexilate Mesylate 150 [...] DAILY IN THE EVENING 90 Tablet 3 Triamcinolone Acetonide 0.1 % External Cream (Aristocort) APPLY CREAM EXTERNALLY TO AFFECTED AREA TWICE DAILY TO LEGS (Patient not taking: Reported on 08/05/2023) 80 g 0 No current facility-administered medications for this visit. 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: @[employer] Tobacco Use Smoking status: Never Smokeless tobacco: Never Vaping Use Vaping Use: Never used Substance and Sexual Activity Alcohol use: No Comment: hx alcoholism Drug use: No Sexual activity: Yes Partners: Female Comment: , granddaughter 22yO lives w/them Social Determinants of Health Food Insecurity: No Food Insecurity (10/14/2022) Hunger Vital Sign Worried About Running Out of Food in the Last Year: Never true Ran Out of Food in the Last Year: Never true OBJECTIVE/PHYSICAL EXAMINATION: BP 114/72 | Pulse 92 | Wt 118.4 kg (261 lb) | SpO2 94% | BMI 34.91 kg/m | BSA 2.46 m General: No acute distress. A+Ox3. HEENT: Normocephalic. Atraumatic. PERRL. EOMI. Conjunctiva and sclera clear. NECK: No carotid bruits. No JVD. Carotid upstrokes are brisk. Heart: irregular rhythm. S1 and S2 noted. No murmur. No rubs or gallops. PMI non displaced. Lungs: Clear to auscultation. No wheezes. No rhonchi. No rales. Abdomen: Normal bowel sounds. Soft. Nontender. No masses or organomegaly. No abdominal bruits. Extremities: No edema. No clubbing or cyanosis. Pulses: radial=2/4, posterior tibial=2/4, dorsalis pedis = 2/4. NEURO: No focal deficits. PSYCH: Appropriate affect and insight. DATA Labs & Imaging Reviewed Below: Echo 07/23/23 The examination is adequate to evaluate the referral indication. There was atrial fibrillation during the examination. The left ventricular cavity size is normal. The LV wall thickness is moderately increased (concentric). The left ventricular wall motion is normal. The qualitative LV ejection fraction is 55-59% (normal). Mild aortic valve sclerosis is present. Mild aortic valve regurgitation is present. Moderate tricuspid regurgitation is present. The aortic root is mildly enlarged. Zio 04/2023 Indications: Palpitations Duration: 5 days, 19 hours Atrial Flutter occurred continuously (100% burden), ranging from 48-139 bpm (avg of 80 bpm). Isolated VEs were rare (<1.0%), and no VE Couplets or VE Triplets were present. The patient recorded 2 event markers correlating with atrial flutter, baseline rhythm, with controlled rate. Impression: Atrial flutter, atypical with variable conduction (100%) Echo 03/09/20 The examination is adequate to evaluate the referral indication. Study was performed with patient in atrial fibrillation with rapid ventricular response. The left ventricular cavity size is normal. The LV wall thickness is mildly increased (concentric). There is mild diffuse left ventricular hypokinesis. The qualitative LV ejection fraction is 45-49% (mildly reduced). Dilated IVC with reduced collapsability with sniff indicates an elevated right atrial pressure of 15mmHg. The estimated pulmonary artery systolic pressure is 40-45mm Hg. ASSESSMENT/PLAN: 73 year old male 1. Permanent atrial fibrillation (HCC) 2. Palpitations - Zio with 100% atypical atrial flutter with variable conduction - mild palpitations, not bothersome - discussed increasing metoprolol to 100 mg twice daily, but he states metoprolol 100 mg in morning, 50 mg in evening, and 12.5 mg at bedtime control symptoms well, continue - continue pradaxa for stroke prophylaxis 3. HTN, goal below 140/90 - blood pressure controlled - continue lisinopril, clonidine, spironolactone 4. Non-ischemic cardiomyopathy (HCC) - EF improved to 55-59%, echo reviewed - euvolemic on exam - continue GDMT with torsemide, lisinopril, metoprolol succinate, spironolactone, Jardiance DISPOSITION: Follow up 6 months or sooner if symptoms worsen/fail to improve. All questions were answered to the patients satisfaction. Patient advised to report to ED with any and all emergencies. The patient agrees to the above plan and will call with additional questions or concerns. Claire Ureña PA-C Cardiology, [facility] [address] [facility] [place] [address] I spent a total of 30 minutes on the date of service in preparation, delivery, and documentation ofthe care provided to Renan Harris excluding any time spent in the performance of separately billedservices. This chart was completed in part utilizing [employer] Speech Voice Recognition Software. Grammatical errors, random word insertions, pronoun errors, and incomplete sentences are an occasional consequence of this system due to software limitations, ambient noise, and hardware issues. Any formal questions or concerns about the content, text, or information contained within the body of this dictation should be directly addressed to the provider for clarification. documented in this encounter Nursing Notes * Valeria Ricardo CMA - 08/05/2023 11:43 AM EST Examination Room: 2 Name: Renan Harris Date of : (1950) Reason for Visit: f/u from echo Interim Hospitalization(s): none Problems/Concerns: denied Chest Pain/SOB: denied My [facility] is a way you can talk to your provider online through e-mail. Would you like to sign up? I can activate it for you? ALREADY ACTIVE Patient was instructed to not get up on the exam table until directed and assisted by their provider; patient is to remain seated in the chair/ wheelchair/ exam table for fall prevention and safety reasons. Patient is aware to have assistance to step down off exam table with personnel. Patient voiced full comprehension of instructions. documented in this encounter Plan of Treatment Upcoming Encounters Date Type Department Care Team (Late st Contact Info) Description 10/19/2023 10:40 AM EDT Office Visit Family Practice [facility] [address] [place] [address] Vishnu Allison MD [address] [place] [address] 02/29/2024 10:45 AM EDT Office Visit [facility]ology [facility] [place] [address] [place] [address] Adonis Kilgore MD [address] [facility] [place] [address] Scheduled Procedures Name Priority Associated Diagnoses Date/Ti [...] Additional history exists CKD PHOS USE SMARTSET 94356 04/09/202403/22, 02/06/2022, 06/19/2021, Additional history exists Diabetic Eye Exam 04/29/2024 04/29/2023, , 01/03/2020, Additional history exists Diabetic Foot Exam 04/29/2024 04/29/2023, 0 01/06/2022, 07/29/2017, Additional history exists CKD HGB USE SMARTSET 02646 05/21/202405/21, 09/12/2022, 02/06/2022, Additional history exists TSH [...] as of this encounter Visit Diagnoses Diagnosis Permanent atrial fibrillation (HCC)- Primary Atrial fibrillation Palpitations HTN, goal below 140/90 Unspecified essential hypertension Non-ischemic cardiomyopathy (HCC) Other primary cardiomyopathies documented in this encounter Advance Directives Latest [...] the patient have Health Care Power of [place] Programmer? No Care Teams Steamfitter Supervisor Relationship Specialty Start Date End Date Vishnu Allison MD [address] [place] [address] PCP - General Family Medicine 06/02/14 documented as of this encounter
--- OUTSIDE RECORDS SUMMARY | 2023-12-03 10:52 | External Medical Summary | Summary of Care ---
Author Name Unknown Organization [facility] Address [address] [place] [address] Phone [phone] Care Team Providers Care Gaming Floor Supervisor Name Role Phone Vishnu Allison MD Primary Care Provider + Reason for Visit * Reason Onset Date Comments Advice 07/28/2023 Encounter Details Date Type Department Care Team (Late st Contact Info) Description 07/28/2023 Telephone Access Center, [place] [address] [facility] *DO NOT REMOVE THIS DEPARTMENT* [place] [address] Services, Scheduling [address] [place] [address] Advice Allergies Active Allergy Reactions Criticality Noted Date Comments Amiodarone Rash 10/08/2018 Sildenafil Citrate 06/20/2014 Severe SPAULDING, flushed feeling Simvastatin 12/05/2005 Myalgias arthralgias documented as of this encounter (statuses as of 08/03/2023) Medications Medication Sig Dispensed Refills Start Date [...] TO LEGS 80 g 0 01/31/2021 Active Nystatin-Triamcin olone 416006-8.1 UNIT/GM-% External Cream (Mycolog)Indicati ons:Cutaneous candidiasis APPLY [...] the morning. 45 Tablet 3 11/25/2022 Active Ketoconazole 2 % External Shampoo (Nizoral)Indicati ons:Seborrheic dermatitis of scalp Lather into scalp for 5 minutes in the shower then rinse. Do this 3 times per week 120 mL 11 02/20/2023 Active Zolpidem Tartrate 10 MG Oral Tablet [...] once daily 90 Tablet 0 04/06/2023 Active Metoprolol Succinate ER 100 MG Oral Tablet Extended Release 24 Hour (toPROL XL) TAKE 1 TABLET BY MOUTH ONCE DAILY IN THE MORNING 90 Tablet 3 05/21/2023 Active Metoprolol Succinate ER 50 MG Oral Tablet Extended Release 24 Hour (toPROL XL) TAKE 1 TABLET BY MOUTH ONCE DAILY IN THE EVENING 90 Tablet 3 05/21/2023 Active Metoprolol Succinate ER 25 MG Oral Tablet Extended Release 24 Hour (toPROL XL)Indications:HT N, goal below 140/90,Permanent atrial fibrillation (HCC) TAKE 1 TABLET BY MOUTH ONCE DAILY IN THE EVENING 90 Tablet 3 05/21/2023 Active Terazosin HCl 2 MG Oral CapsuleIndication [...] OTHER MEDS) 90 Tablet 3 06/24/2023 Active documented as of this encounter (statuses as of 08/03/2023) Active Problems Problem Noted Date Diagnosed Date [...] as of this encounter (statuses as of 08/03/2023) Resolved Problems Problem Noted Date Diagnosed Date [...] 10/26/2013 10/23/2016 Overview: 11/02 CT sinus/brain at [facility] shows left maxillary sinusitis. S/p amox, [...] as of this encounter (statuses as of 08/03/2023) Immunizations Name Administration Dates Next Due COVID-19 mRNA, LNP-s, No Pre serve, 2-Dose Series ([employer]) 10/10/2021,02/26/2021,09/10/2020,08/15 Covid-19, Mrna, Lnp-s, Pf, B ivalent, [...] encounter Miscellaneous Notes * Telephone Encounter - Iveth Del Rio OSA - 07/28/2023 9:13 AM EST Pt called asking for the results from his Endoscopy, but I believe he was talking about his Echo that was done on 07/23/23.. I'm not seeing an EGD done. documented in this encounter Plan of Treatment Upcoming Encounters Date Type Department Care Team (Late st Contact Info) Description 08/05/2023 1:30 PM EST Office Visit Cardiology, [facility] [address] [facility] [place] [address] Claire Ureña PA-C [address] [place] [address] [place] [address] 10/19/2023 10:40 AM EDT Office Visit Family Practice [facility] [address] [facility] [place] [address] Vishnu Allison MD 132 [facility] [place] [address] 02/29/2024 10:45 AM EDT Office Visit Dermatology [facility] [place] [address] [place] [address] Adonis Kilgore MD [address] [place] [address] Scheduled Procedures Name Priority Associated Diagnoses Date/Ti me COLONOSCOPY FLEXIBLE PROXIMA L DIAGNOSTIC Recall History of colonic polyps Health Maintenance Due Date Last Done Comments DXA Scan 1950 Zoster Vaccines (2 of 3) 07/25/2013 05/30/2013 COLONOSCOPY-EVERY 5 YRS AGES 18-100 03/29/2018 03/29/2013, 03/28/2013, 03/28/2013 COVID-19 Vaccine (6 - 2022- season) 2023 03/13/2022, 10/10/2021, 02/26/2021, Additional history exists DTaP,Tdap,and Td Vaccines (2 - Td or Tdap) 03/11/2023 03/11/2013 Albumin/Creatinine Ratio 09/13/2023 023, 02/06/2022, 11/09/2020, Additional history exists B-12 09/13/2023 09/12/2022, 04/0 09/2021, 12/18/2020, Additional history exists HbA1c 10/09/2023 04/09/2023, 08/21, 02/06/2022, Additional history exists Depression Screening 10/15/2023 10/14/2022 GFR 11/19/2023 05/21/2023, 03/22, 10/14/2022, Additional history exists CKD PHOS USE SMARTSET 34822 04/09/202403/22, 02/06/2022, 06/19/2021, Additional history exists Diabetic Eye Exam 04/29/2024 04/29/2023, , 01/03/2020, Additional history exists Diabetic Foot Exam 04/29/2024 04/29/2023, 0 01/06/2022, 07/29/2017, Additional history exists CKD HGB USE SMARTSET 11659 05/21/202405/21, 09/12/2022, 02/06/2022, Additional history exists TSH [...] the patient have Health Care Power of Agent Contract Clerk? No Care Teams Gaming Floor Supervisor Relationship Specialty Start Date End Date Vishnu Allison MD [address] [facility] [place] [address] PCP - General Family Medicine 06/02/14 documented as of this encounter
--- OUTSIDE RECORDS SUMMARY | 2023-12-03 10:52 | External Medical Summary | Summary of Care ---
Author Name Unknown Organization [facility] Address [address] [facility] [place] [address] Phone [phone] Care Team Providers Care Spare Parts Clerk Name Role Phone Vishnu Allison MD Primary Care Provider + Reason for Visit * Reason Comments Outpatient Testing Encounter Details Date Type Department Care Team (Late st Contact Info) Description 08/18/2023 11:00 AM EST Laboratory Laboratory [facility] [address] [place] [address] [facility] Lab [facility] [address] [place] [address] Chronic kidney disease, stage 3b (HCC); Hypertension goal BP (blood pressure) < 130/80; Vitamin D deficiency Allergies Active Allergy Reactions [...] hemoglobin A1c goal of less than 8.0% ([facility]) Use daily with insulin. E11.9 [address] [...] Patient not taking.Reported on 08/05/2023 Nystatin-Triamcin olone 445251-9.1 UNIT/GM-% External Cream (Mycolog)Indicati ons:Cutaneous candidiasis APPLY [...] 10/23/2016 Overview: 11/02 CT sinus/brain at [facility] shows left maxillary sinusitis. S/p amox, given [...] mRNA, LNP-s, No Pre serve, 2-Dose Series ([employer]) 10/10/2021,02/26/2021,09/10/2020,08/15 Covid-19, Mrna, Lnp-s, Pf, B ivalent, [...] 10:40 AM EDT Office Visit Family Practice [facility] [address] [place] [address] Vishnu Allison MD [address] [place] [address] 02/29/2024 10:45 AM EDT Office Visit Dermatology [facility] [place] [address] [facility] [place] [address] Adonis Kilgore MD [address] [place] [address] Pending Results Name Type Priority Associated Diagnoses Date /Time BASIC METABOLIC PANEL Lab Routine Chronic kidney disease, stage 3b (HCC) 08/18/2023 10:58 AM EST URIC ACID Lab Routine Hypertension goal BP (blood pressure) < 130/80 08/18/2023 10:58 AM EST MAGNESIUM Lab Routine Hypertension goal BP (blood pressure) < 130/80 08/18/2023 10:58 AM EST PTH Lab Routine Hypertension goal BP (blood pressure) < 130/80 Vitamin D deficiency 08/18/2023 10:58 AM EST 25-HYDROXY VITAMIN D Lab Routine Vitamin D deficiency 08/18/2023 10:58 AM EST PHOSPHORUS Lab Routine Hypertension goal BP (blood pressure) < 130/80 08/18/2023 10:58 AM EST Scheduled Procedures Name Priority Associated Diagnoses Date/Ti [...] Additional history exists CKD PHOS USE SMARTSET 83144 04/09/202403/22, 02/06/2022, 06/19/2021, Additional history exists Diabetic Eye Exam 04/29/2024 04/29/2023, , 01/03/2020, Additional history exists Diabetic Foot Exam 04/29/2024 04/29/2023, 0 01/06/2022, 07/29/2017, Additional history exists CKD HGB USE SMARTSET 26153 05/21/202405/21, 09/12/2022, 02/06/2022, Additional history exists TSH [...] as of this encounter Visit Diagnoses Diagnosis Chronic kidney disease, stage 3b (HCC) Hypertension goal BP (blood pressure) < 130/80 Unspecified essential hypertension Vitamin D deficiency Unspecified vitamin D deficiency [...] the patient have Health Care Power of Past Due Accounts Clerk? No Care Teams Spare Parts Clerk Relationship Specialty Start Date End Date Vishnu Allison MD [address] [place] [address] PCP - General Family Medicine 06/02/14 documented as of this encounter
--- OUTSIDE RECORDS SUMMARY | 2023-12-03 10:52 | External Medical Summary ---
Author Name Unknown Address Unknown Organization K01:[facility] [place] [address] [place] [address] Laboratory Report Ordering Provider Test Date Status JOSSELYN TRUJILLO 08/18/2023 10:58:37 Final Observation Date Value Abnormality Reference (Units ) Status Parathyrin.intact [Mass/volume] in Serum or Plasma 08/18/2023 10:58:37 93 Above high normal 15-65 (pg/mL) Final Performing Location [facility] [place] [address] [place] [address]
--- OUTSIDE RECORDS SUMMARY | 2023-12-03 10:52 | External Medical Summary ---
Author Name Unknown Address Unknown Organization K01:[facility] [place] [address] [place] [address] Laboratory Report Ordering Provider Test Date Status JOSSELYN TRUJILLO 08/18/2023 10:58:37 Final Deficient: <20 ng/mL
Ins ufficient: 20-29 ng/mL
Recommended/Optimum:30-50 ng/mL

Vitamin D intoxication is rare. If suspicious of Vitamin D toxicity, evaluation of serum Calcium and PTH is recommended. Observation Date Value Abnormality Reference (Units ) Status 25-OH Vitamin D total 08/18/2023 10:58:37 13 Below low normal >19 (ng/mL) Final Performing Location [facility] [place] [address] [place] [address]
--- OUTSIDE RECORDS SUMMARY | 2023-12-03 10:52 | External Medical Summary | Summary of Care ---
Author Name Unknown Organization [facility] Address [address] [facility] [address] Phone [phone] Care Team Providers Care Automobile Designer Name Role Phone Vishnu Allison MD Primary Care Provider + Reason for Visit * Reason Onset Date Comments Test Results 07/28/2023 Encounter Details Date Type Department Care Team (Late st Contact Info) Description 07/28/2023 Telephone Cardiology, [facility] [address] [place] [address] Mery Crowe PA-C [address] [place] [address] Test Results Allergies Active Allergy Reactions Criticality Noted Date Comments Amiodarone Rash 10/08/2018 Sildenafil Citrate 06/20/2014 Severe SPAULDING, flushed feeling Simvastatin 12/05/2005 Myalgias arthralgias documented as of this encounter (statuses as of 07/28/2023) Medications Medication Sig Dispensed Refills Start Date [...] A1c goal of less than 8.0% ([facility]) Use daily with insulin. E11.9 [...] 80 g 0 01/31/2021 Active Nystatin-Triamcin olone 874173-3.1 UNIT/GM-% External Cream (Mycolog)Indicati ons:Cutaneous candidiasis APPLY [...] as of this encounter (statuses as of 07/28/2023) Active Problems Problem Noted Date Diagnosed Date [...] as of this encounter (statuses as of 07/28/2023) Resolved Problems Problem Noted Date Diagnosed Date [...] as of this encounter (statuses as of 07/28/2023) Immunizations Name Administration Dates Next Due COVID-19 mRNA, LNP-s, No Pre serve, 2-Dose Series (EyeLock) 10/10/2021,02/26/2021,09/10/2020,08/15 Covid-19, Mrna, Lnp-s, Pf, B ivalent, [...] encounter Miscellaneous Notes * Telephone Encounter - Farshad Strange LPN - 07/28/2023 3:42 PM EST Called patient and informed of Mery's message. Patient verbalized understanding. ----- Message from Mery Crowe PA-C sent at 07/24/2023 3:44 PM EST ----- Echo results reviewed LVEF improved and now normal at 55-59%, previously 45-49% Afib was present during study with controlled rates (known) Mild aortic sclerosis without stenosis Mild Aortic regurg Moderate tricuspid regurg Aortic root is mildly enlarged at 4.4 and ascending aorta measuring 4.0 cms Compared with prior echo in 2019 LVEF has improved. Good news! Aortic root measuring slightly larger. Would consider repeat echo in 1 year. Keep appt as scheduled with Ms. Niranjan PA-C in 2 weeks documented in this encounter Plan of Treatment Upcoming Encounters Date Type Department Care Team (Late st Contact Info) Description 08/05/2023 1:30 PM EST Office Visit Cardiology, [address] [place] [address] Claire Ureña PA-C [address] [place] [address] [place] [address] 10/19/2023 10:40 AM EDT Office Visit Family Practice [facility] [address] [facility] [place] [address] Vishnu Allison MD [address] [place] [address] 02/29/2024 10:45 AM EDT Office Visit Dermatology [facility] [address] [facility] [place] [address] Adonis Kilgore MD [address] [facility] [place] [address] Scheduled Procedures Name Priority Associated Diagnoses Date/Ti [...] Additional history exists CKD PHOS USE SMARTSET 06260 04/09/202403/22, 02/06/2022, 06/19/2021, Additional history exists Diabetic Eye Exam 04/29/2024 04/29/2023, , 01/03/2020, Additional history exists Diabetic Foot Exam 04/29/2024 04/29/2023, 0 01/06/2022, 07/29/2017, Additional history exists CKD HGB USE SMARTSET 03910 05/21/202405/21, 09/12/2022, 02/06/2022, Additional history exists TSH [...] the patient have Health Care Power of Corduroy Cutter Operator? No Care Teams Automobile Designer Relationship Specialty Start Date End Date Vishnu Allison MD [address] [place] [address] PCP - General Family Medicine 06/02/14 documented as of this encounter
--- OUTSIDE RECORDS SUMMARY | 2023-12-03 10:52 | External Medical Summary | Summary of Care ---
Author Name Unknown Organization [facility] Address [address] [place] [address] Phone [phone] Care Team Providers Care Carpenter Rough Name Role Phone Vishnu Allison MD Primary Care Provider + Reason for Visit * Reason Comments eRx-Medication Refill Encounter Details Date Type Department Care Team (Late st Contact Info) Description 08/15/2023 [place] [facility] [place] [address] [place] [address] Neno Braun MD [address] [place] [address] Gout* Allergies Active Allergy Reactions Criticality Noted Date [...] Patient not taking.Reported on 08/05/2023 Nystatin-Triamci nolone 187268-2.1 UNIT/GM-% External Cream (Mycolog)Indicat ions:Cutaneous candidiasis APPLY [...] EVENING 90 Tablet 3 08/05/19 24 Active Allopurinol 300 MG Oral Tablet (Zyloprim)Indica tions:Gout Take 1 tablet by mouth once daily 30 Tablet 0 08/17/19 24 Active Allopurinol 300 MG Oral Tablet (Zyloprim) Take 1 tablet by mouth once daily 90 Tablet 0 04/06/20 23 024 Discontinued documented as of this [...] 10/23/2016 Overview: 11/02 CT sinus/brain at [facility] shows left maxillary sinusitis. S/p [...] mRNA, LNP-s, No Pre serve, 2-Dose Series (Cloudsnap) 10/10/2021,02/26/2021,09/10/2020,08/15 Covid-19, Mrna, Lnp-s, Pf, B ivalent, [...] Telephone Encounter - Neno Braun MD - 08/17/2023 10:13 AM ESTSigned Prescriptions: Disp Refills Allopurinol 300 MG Oral Tablet (Zyloprim) 30 Tab*0 Sig: Take 1 tablet by mouth once daily Authorizing Provider: NENO BRAUN * Telephone Encounter - Aurora Scales RN - 08/17/2023 8:20 AM ESTPending Prescriptions: Disp Refills Allopurinol 300 MG Oral Tablet (Zyloprim) 30 Tab*0 Sig: Take 1 tablet by mouth once daily * Telephone Encounter - Aurora Scales RN - 08/17/2023 8:18 AM EST Prescription request received from pharmacy pending. Please authorize. Last OV 08/19/22 Letter sent to reschedule appt in March. documented in this encounter Plan of Treatment Upcoming Encounters Date Type Department Care Team (Late st Contact Info) Description 08/18/2023 10:30 AM EST Office Visit Nephrology, [facility] [address] [facility] [place] [address] Naomi Sneed PA-C [address] [facility] [place] [address] 10/19/2023 10:40 AM EDT Office Visit Family Practice [facility] [address] [place] [address] Vishnu Allison MD [address] [place] [address] 02/29/2024 10:45 AM EDT Office Visit Dermatology [facility] [address] [facility] [place] [address] Adonis Kilgore MD [address] [facility] [place] [address] Scheduled Procedures Name Priority Associated Diagnoses Date/Ti [...] Additional history exists CKD PHOS USE SMARTSET 94195 04/09/202403/22, 02/06/2022, 06/19/2021, Additional history exists Diabetic Eye Exam 04/29/2024 04/29/2023, , 01/03/2020, Additional history exists Diabetic Foot Exam 04/29/2024 04/29/2023, 0 01/06/2022, 07/29/2017, Additional history exists CKD HGB USE SMARTSET 98031 05/21/202405/21, 09/12/2022, 02/06/2022, Additional history exists TSH [...] as of this encounter Visit Diagnoses Diagnosis Gout- Primary Gout, unspecified documented in this encounter Advance [...] the patient have Health Care Power of Glassblower? No Care Teams Carpenter Rough Relationship Specialty Start Date End Date Vishnu Allison MD [address] [place] [address] PCP - General Family Medicine 06/02/14 documented as of this encounter
--- OUTSIDE RECORDS SUMMARY | 2023-12-03 10:52 | External Medical Summary ---
Author Name Unknown Address Unknown Organization K01:[facility] [place] - [address] [place] [address] Laboratory Report Ordering Provider Test Date Status KELY TRUJILLOITIS 08/18/2023 10:58:37 Final Observation Date Value Abnormality Reference (Units ) Status Uric Acid 08/18/2023 10:58:37 7.1 Above high normal 3. 4-7.0 (mg/dL) Final Performing Location [facility] [place] - [address] [place] [address]
--- OUTSIDE RECORDS SUMMARY | 2023-12-03 10:53 | External Medical Summary | Summary of Care ---
Author Name Unknown Organization [facility] Address [address] [place] [address] Phone [phone] Care Team Providers Care Ski Topper Name Role Phone Vishnu Hansen MD Primary Care Provider + Reason for Visit * Reason Comments eRx-Medication Refill Encounter Details Date Type Department Care Team (Late st Contact Info) Description 06/23/2023 Refill Family Practice [facility] [address] [place] [address] Vishnu Hansen MD [address] [place] [address] Hypothyroidism, unspecified type Allergies Active Allergy Reactions Criticality Noted Date Comments Amiodarone Rash 10/08/2018 Sildenafil Citrate 06/20/2014 Severe SPAULDING, flushed feeling Simvastatin 12/05/2005 Myalgias arthralgias documented as of this encounter (statuses as of 06/24/2023) Medications Medication Sig Dispensed Refills Start Date [...] of less than 8.0% ([facility]) Use daily with insulin. E11.9 100 [...] LEGS 80 g 0 02/01/20 21 Active Nystatin-Triamci nolone 143796-7.1 UNIT/GM-% External Cream (Mycolog)Indicat ions:Cutaneous candidiasis APPLY [...] morning. 45 Tablet 3 11/26/19 23 Active Ketoconazole 2 % External Shampoo (Nizoral)Indicat ions:Seborrheic dermatitis of scalp Lather into scalp for 5 minutes in the shower then rinse. Do this 3 times per week 120 mL 11 02/21/20 23 Active Zolpidem Tartrate 10 MG Oral [...] daily 90 Tablet 0 04/06/20 23 Active Metoprolol Succinate ER 100 MG Oral Tablet Extended Release 24 Hour (toPROL XL) TAKE 1 TABLET BY MOUTH ONCE DAILY IN THE MORNING 90 Tablet 3 05/21/20 23 Active Metoprolol Succinate ER 50 MG Oral Tablet Extended Release 24 Hour (toPROL XL) TAKE 1 TABLET BY MOUTH ONCE DAILY IN THE EVENING 90 Tablet 3 05/21/20 23 Active Metoprolol Succinate ER 25 MG Oral Tablet Extended Release 24 Hour (toPROL XL)Indications:H TN, goal below 140/90,Permanent atrial fibrillation (HCC) TAKE 1 TABLET BY MOUTH ONCE DAILY IN THE EVENING 90 Tablet 3 05/21/20 23 Active Terazosin HCl 2 MG Oral [...] of less than 8.0% ([facility]) INJECT 1.8 MG SUBCUTANEOUSLY ONCE DAILY 9 mL 3 05/30/20 23 Active Levothyroxine Sodium 75 MCG Oral Tablet (Levoxyl)Indicat ions:Hypothyroid ism, unspecified type TAKE 1 TABLET BY MOUTH IN THE MORNING (AT LEAST 30 MINUTES PRIOR TO BREAKFAST OR OTHER MEDS) 90 Tablet 3 06/24/19 24 Active Levothyroxine Sodium 75 MCG Oral Tablet (Levoxyl)Indicat ions:Hypothyroid ism, unspecified type TAKE 1 TABLET BY MOUTH IN THE MORNING (AT LEAST 30 MINUTES PRIOR TO BREAKFAST OR OTHER MEDS) 90 Tablet 1 12/29/19 23 024 Discontinued documented as of this encounter (statuses as of 06/24/2023) Active Problems Problem Noted Date Diagnosed Date [...] as of this encounter (statuses as of 06/24/2023) Resolved Problems Problem Noted Date Diagnosed Date [...] 10/23/2016 Overview: 11/02 CT sinus[facility]brain at [facility] shows left maxillary sinusitis. S/p amox, [...] as of this encounter (statuses as of 06/24/2023) Immunizations Name Administration Dates Next Due COVID-19 mRNA, LNP-s, No Pre serve, 2-Dose Series (Smarty Ring) 10/10/2021,02/26/2021,09/10/2020,08/15 Covid-19, Mrna, Lnp-s, Pf, B ivalent, 30 Mcg, IM, 12 yrs and above (Smarty Ring) 03/13/2022 Hepatitis B, 20+ yrs 07/05/2015,01/16/2014,12/13 Pneumococcal [...] encounter Miscellaneous Notes * Telephone Encounter - Ryan Mao RP - 06/24/2023 3:17 PM ESTSigned Prescriptions: Disp Refills Levothyroxine Sodium 75 MCG Oral Tablet (L*90 Tab*3 Sig: TAKE 1 TABLET BY MOUTH IN THE MORNING (AT LEAST 30 MINUTES PRIOR TO BREAKFAST OR OTHER MEDS)Authorizing Provider: VISHNU HANSEN User: RYAN MAO documented in this encounter Plan of Treatment Upcoming Encounters Date Type Department Care Team (Late st Contact Info) Description 07/23/2023 1:00 PM EST Cardiac Studies Cardiac Studies, [address] [place] [address] 08/05/2023 1:30 PM EST Office Visit Cardiology, [address] [place] [address] Claire Ureña PA-C [address] [facility] [place] [address] 10/19/2023 10:40 AM EDT Office Visit Family Practice [facility] [address] [place] [address] Vishnu Hansen MD [address] [place] [address] 02/29/2024 10:45 AM EDT Office Visit Dermatology [facility] [address] [facility] [place] [address] Adonis Kilgore MD [address] [facility] [place] [address] Scheduled Procedures Name Priority Associated Diagnoses Date/Ti [...] Additional history exists CKD PHOS USE SMARTSET 75008 04/09/202403/22, 02/06/2022, 06/19/2021, Additional history exists Diabetic Eye Exam 04/29/2024 04/29/2023, , 01/03/2020, Additional history exists Diabetic Foot Exam 04/29/2024 04/29/2023, 0 01/06/2022, 07/29/2017, Additional history exists CKD HGB USE SMARTSET 38678 05/21/202405/21, 09/12/2022, 02/06/2022, Additional history exists TSH [...] as of this encounter Visit Diagnoses Diagnosis Hypothyroidism, unspecified type documented in this encounter Advance Directives Latest [...] the patient have Health Care Power of Obstetrics Gynecology Md? No Care Teams Ski Topper Relationship Specialty Start Date End Date Vishnu Hansen MD [address] [place] [address] PCP - General Family Medicine 06/02/14 documented as of this encounter
--- NOTE | 2023-12-03 11:51 | Surgery Progress Note ---
Date of Service December 03, 2023 Assessment & Plan (1) Elevated lactic acid level: (2) Syncope and collapse: Plan: 73 year-old male on Pradaxa underwent I&D of bilateral buttock hematomas in clinic today under local anesthesia with DR. Niño. Presented to ED with bleeding and had syncopal episode in ED triage. CT of pelvis showing no signs of fluid collection or cellulitis. 12/03/2023: hemodynamically stable, hgb down to 14.3 (17) bleeding is slowing down with pressure dressing Plan: Applied hemostatic gauze (surgicel) to right buttock wound and reapplied pressure dressing. Pressure dressing to left buttock, did not probe wound to prevent reactivating bleeding. Will consult case management for home health nursing and will need wound clinic follow-up. Continue to monitor until home health nursing set up and wound still bleeding. Hold Pradaxa continue medical management Discussed with Dr. escobedo who agrees with above. (3) Bleeding from wound: Admission and Anticipated Discharge Date Admission Date: December 02, 2023 Supervising Physician Co-Signing Physician Notes I seen and examined the patient personally and agree with the above assessment and plan. In brief he is status post an incision and drainage in the outpatient setting but has continued to bleed from the skin edges. The wound was packed with Surgicel and a pressure dressing today. Will continue to monitor his hemoglobin. Continue to hold the Pradaxa. Subjective feeling okay, no significant pain in buttocks has not needed dressing change overnight Physical Exam Constitutional: WD/WN, vitals as above + obese, cooperative and comfortable; no acute distress and not ill appearing Respiratory: normal respiratory effort; no respiratory distress Gastrointestinal (Abdomen): External examination: Left buttock with 1.5 cm incision , bleeding has stopped. There is ecchymosis present. Right buttock with 3.5 cm wound with venous bleeding at wound edges but this is slowing down. There is no active arterial bleeding. Surrounding erythema of the buttocks is present but no induration. Skin: no rashes, warm and dry Psychiatric: Orientation: alert and oriented x 3 Results & Data Vital Signs (Past 12 Hours) Vital Signs Temp Pulse Pulse Resp BP Pulse Ox O2 Del Method 12/03/23 11:40 36.6 C 88 20 98/54 L 94 Room Air 12/03/23 07:43 36.8 C 85 18 113/74 95 Room Air 12/03/23 04:46 36.6 C 84 18 106/69 96 Room Air Laboratory Results 12/03/23 12/03/23 12/03/23 Range/Units 08:07 06:57 00:40 WBC 10.02 (4.8-10.8) K/ul RBC 4.65 L (4.70-6.10) M/uL Hgb 14.3 14.9 (14.0-18.0) g/dl Hct 43.0 44.4 (42.0-52.0) % MCV 92.5 (80.0-100.0) fL MCH 30.8 (25.0-34.0) pg MCHC 33.3 (32.0-36.0) g/dL RDW Std Deviation 51.3 H (36.4-46.3) fL RDW Coeff of Gabriela 15.2 H (11.5-14.5) % Plt Count 152 (130-400) K/uL MPV 9.7 (9.4-12.4) fL Sodium 143 (136-145) mmol/L Potassium 3.6 (3.5-5.1) mmol/L Chloride 108 H (98-107) mmol/L Carbon Dioxide 30 (21-32) mmol/L Anion Gap 5 (3-11) BUN 22 (6-23) mg/dl Creatinine 1.23 D (0.6-1.4) mg/dl Est Cr Clr Drug Dosing 67.7 ml/min Est GFR ( Amer) 66.1 ml/min Est GFR (Non-Af Amer) 57.1 ml/min BUN/Creatinine Ratio 17.9 (10-20) Glucose 108 H (70-99(Fasting)) mg/dl POC Glucose 102 H (70-99) mg/dl Estimat Average Glucose 151 mg/dl Hemoglobin A1c 6.9 H (4.5-5.6) % Lactate (0.4-2.0) mmol/L Calcium 8.9 (8.6-10.3) mg/dl Phosphorus 3.1 (2.5-4.9) mg/dl Magnesium 1.9 (1.7-2.4) mg/dl Procalcitonin (0-0.5) ng/ml SARS-CoV-2 (PCR) (Negative) Blood Type Antibody Screen 12/02/23 12/02/23 12/02/23 Range/Units 22:50 20:19 12:50 WBC (4.8-10.8) K/ul RBC (4.70-6.10) M/uL Hgb 15.3 15.3 (14.0-18.0) g/dl Hct 45.1 46.3 (42.0-52.0) % MCV (80.0-100.0) fL MCH (25.0-34.0) pg MCHC (32.0-36.0) g/dL RDW Std Deviation (36.4-46.3) fL RDW Coeff of Gabriela (11.5-14.5) % Plt Count (130-400) K/uL MPV (9.4-12.4) fL Sodium (136-145) mmol/L Potassium (3.5-5.1) mmol/L Chloride (98-107) mmol/L Carbon Dioxide (21-32) mmol/L Anion Gap (3-11) BUN (6-23) mg/dl Creatinine (0.6-1.4) mg/dl Est Cr Clr Drug Dosing ml/min Est GFR ( Amer) ml/min Est GFR (Non-Af Amer) ml/min BUN/Creatinine Ratio (10-20) Glucose (70-99(Fasting)) mg/dl POC Glucose 121 H (70-99) mg/dl Estimat Average Glucose mg/dl Hemoglobin A1c (4.5-5.6) % Lactate (0.4-2.0) mmol/L Calcium (8.6-10.3) mg/dl Phosphorus (2.5-4.9) mg/dl Magnesium (1.7-2.4) mg/dl Procalcitonin (0-0.5) ng/ml SARS-CoV-2 (PCR) (Negative) Blood Type Antibody Screen 12/02/23 12/02/23 12/02/23 Range/Units 12:39 11:32 10:58 WBC (4.8-10.8) K/ul RBC (4.70-6.10) M/uL Hgb (14.0-18.0) g/dl Hct (42.0-52.0) % MCV (80.0-100.0) fL MCH (25.0-34.0) pg MCHC (32.0-36.0) g/dL RDW Std Deviation (36.4-46.3) fL RDW Coeff of Gabriela (11.5-14.5) % Plt Count (130-400) K/uL MPV (9.4-12.4) fL Sodium (136-145) mmol/L Potassium (3.5-5.1) mmol/L Chloride (98-107) mmol/L Carbon Dioxide (21-32) mmol/L Anion Gap (3-11) BUN (6-23) mg/dl Creatinine (0.6-1.4) mg/dl Est Cr Clr Drug Dosing ml/min Est GFR ( Amer) ml/min Est GFR (Non-Af Amer) ml/min BUN/Creatinine Ratio (10-20) Glucose (70-99(Fasting)) mg/dl POC Glucose (70-99) mg/dl Estimat Average Glucose mg/dl Hemoglobin A1c (4.5-5.6) % Lactate 2.0 (0.4-2.0) mmol/L Calcium (8.6-10.3) mg/dl Phosphorus (2.5-4.9) mg/dl Magnesium (1.7-2.4) mg/dl Procalcitonin 0.04 (0-0.5) ng/ml SARS-CoV-2 (PCR) NEGATIVE (Negative) Blood Type A Positive Antibody Screen NEGATIVE
[2023-12-03 12:35] LABS: Hematocrit (blood only) 45.3 % (42.0-52.0); Hemoglobin 15.2 g/dl (14.0-18.0)
--- NOTE | 2023-12-03 14:44 | Hospitalist Progress Note ---
Date of Service December 03, 2023 Assessment & Plan (1) Postprocedural hemorrhage and hematoma of skin and subcutaneous tissue following dermatologic procedure: (2) Syncope and collapse: (3) Cellulitis of gluteal region: (4) Atrial flutter, paroxysmal: (5) DM (diabetes mellitus): Plan Patient with acute blood loss due to incision and drainage of gluteal hematoma. Due to the rapid blood loss patient had acute syncopal event. Hemoglobin is now stabilized. Continue with wound care as directed by surgery Empiric antibiotics for possible cellulitis, patient high risk for infection of open wound with his diabetes Continue to give insulin both basal and sliding scale to control his glucose Continue to hold anticoagulation until hemorrhage has been controlled at bedside Anticipate probable discharge home tomorrow with home health and wound care provided his hemoglobin remained stable and hemorrhage is controlled Admission and Anticipated Discharge Date Admission Date: December 02, 2023 Subjective Patient is feeling better. No lightheadedness or dizziness with getting up and going to the bathroom. Reports that bleeding is decreasing. Nursing reports that bleeding is noticeably decreased as well. Physical Exam Physical Exam: Constitutional: Alert HEENT: Mucous membranes moist. Lungs: Clear to auscultation, decreased, no wheezes rales or rhonchi CV: S1-S2, regular Abdomen: Soft, nontender, nondistended Extremities: No significant edema Neuro: No focal deficits Psych: Cooperative, normal mood Results & Data Results & Data Vital Signs (Past 12 Hours) Vital Signs Temp Pulse Pulse Pulse Resp BP Pulse Ox 12/03/23 11:40 36.6 C 88 20 98/54 L 94 12/03/23 07:43 36.8 C 85 18 113/74 95 12/03/23 07:30 76 12/03/23 04:46 36.6 C 84 18 106/69 96 O2 Del Method 12/03/23 11:40 Room Air 12/03/23 07:43 Room Air 12/03/23 07:30 12/03/23 04:46 Room Air Diagnostic Findings Reviewed imaging, laboratory and diagnostic studies. Pertinent findings as below. Hemoglobin 15.2, stabilized
[2023-12-03] MEDS: cephALEXin 500 MG CAP PO SCH (17:37)
[2023-12-03] MEDS: LANTUS PER UNIT CHARGE SQ SCH (22:23)
--- OUTSIDE RECORDS SUMMARY | 2023-12-03 23:41 | External Medical Summary | Summary of Care ---
Author Name Unknown Organization [facility] Address [address] [place] [address] Phone [phone] Care Team Providers Care Java Tech Name Role Phone Vishnu Allison MD Primary Care Provider + Reason for Visit * Reason Comments Office Procedure Incision and drainag e from hematoma Encounter Details Date Type Department Care Team (Late st Contact Info) Description 12/02/2023 9:00 AM EDT Office Visit General Surgery, [facility] [address] [place] [address] David Niño MD [address] [place] [address] Subcutaneous hematoma* Allergies Active Allergy Reactions Criticality Noted Date Comments Amiodarone Rash 10/08/2018 Sildenafil Citrate 06/20/2014 Severe SPAULDING, flushed feeling Simvastatin 12/05/2005 Myalgias arthralgias documented as of this encounter (statuses as of 12/02/2023) Medications Medication Sig Dispensed Refills Start Date [...] Patient not taking.Reported on 08/05/2023 Nystatin-Triamcino lone 290630-6.1 UNIT/GM-% External Cream (Mycolog)Indicatio ns:Cutaneous candidiasis APPLY [...] of less than 8.0% ([facility]) Inject 75 Units under the skin [...] 4 Active Vitamin D (Ergocalciferol) 1.25 MG (12139 UT) Oral Capsule (Drisdol) Take 1 Capsule by mouth once a week. 6 Capsule 05/15/202 4 Active Spironolactone 25 MG Oral Tablet (Aldactone)Indicat ions:HTN, goal below 140/90 TAKE 1/2 (ONE-HALF) TABLET BY MOUTH IN THE MORNING 45 Tablet 3 4 Active documented as of this encounter (statuses as of 12/02/2023) Active Problems Problem Noted Date Diagnosed Date [...] goal of less than 8.0% 07/06/2002 Overview: 614 <7. 2/14 a1c 8.2 06/03 a1c 7.7 02/01 a1c 7.5 on insulin ICD-10 update of inactive term documented as of this encounter (statuses as of 12/02/2023) Resolved Problems Problem Noted Date Diagnosed Date [...] as of this encounter (statuses as of 12/02/2023) Immunizations Name Administration Dates Next Due COVID-19 mRNA, LNP-s, No Pre serve, 2-Dose Series ([employer]Gro) 10/10/2021,02/26/2021,09/10/2020,08/15 Covid-19, Mrna, Lnp-s, Pf, B ivalent, [...] on file documented as of this encounter Progress Notes * David Niño MD - 12/02/2023 9:11 AM EDT Operative note Date: 12/02/2023 Pre-op diagnosis: Deep hematoma buttock Post-op diagnosis: Same Procedure: Incision and drainage of a buttock hematoma Surgeon: David Niño MD Sales And Events Coordinator: none Anesthesia: local 1% lidocaine with epi, 5cc EBL: 5 cc Specimens: Wound culture Indications: This patient has an abscess on their buttock hematoma which requires drainage. The risks of bleeding and possible further procedures were discussed, they know there will be an open woundwhich will require packing. The consent was signed. Procedure: The buttock area was prepped with betadine and draped. The area was anesthetized with 1%lidocaine with epinephrine. An incision was made overlying the hematoma which resulted in copious clot was being evacuated. Loculations were broken down and the wound was irrigated and then packed. Asterile dressing was applied. The patient tolerated the procedure well and was discharged home in stable condition. David Niño MD 12/02/2023 9:12 AM documented in this encounter Plan of Treatment Upcoming Encounters Date Type Department Care Team (Late st Contact Info) Description 12/11/2023 10:00 AM EDT Nurse Only General Surgery, [facility] 132 [facility] [place] [address] WhitakerNurse tobias Gen Surg [facility] 132 [facility] [place] [address] 02/29/2024 10:45 AM EDT Office Visit Dermatology [facility] 200 [facility] [place] [address] Adonis Kilgore MD [facility] [address] 04/22/2024 10:20 AM EDT Office Visit [facility] 132 [facility] [place] [address] Yo Paulino CRNP 132 [facility] [place] [address] 10/26/2024 10:00 AM EDT Office Visit [facility] 132 [facility] [place] [address] Vishnu Allison MD [address] [place] [address] Scheduled Procedures Name Priority Associated Diagnoses Date/Ti [...] Additional history exists CKD HGB USE SMARTSET 80264 05/21/202405/21, 09/12/2022, 02/06/2022, Additional history exists Albumin/Creatinine Ratio 10/18/2024 024, 09/12/2022, 02/06/2022, Additional history exists B-12 10/18/2024 10/19/2023, 08/21, 09/23/2021, Additional history exists CKD PHOS USE SMARTSET 43815 10/18/202409/21, 08/18/2023, 04/09/2023, Additional history exists TSH [...] Power of Attor neetu? No Care Teams Java Tech Relationship Specialty Start Date End Date Vishnu Allison MD [address] [place] [address] PCP - General Family Medicine 06/02/14 documented as of this encounter
--- OUTSIDE RECORDS SUMMARY | 2023-12-03 23:41 | External Medical Summary | Summary of Care ---
Author Name Unknown Organization [facility] Address [address] [place] [address] Phone [phone] Care Team Providers Care Fur Stylist Name Role Phone Vishnu Allison MD Primary Care Provider + Reason for Visit * Reason Comments Office Procedure Incision and drainag e from hematoma Encounter Details Date Type Department Care Team (Late st Contact Info) Description 12/02/2023 9:00 AM EDT Office Visit General Surgery, [facility] [address] [place] [address] David Niño MD [address] [place] [address] Subcutaneous hematoma* Allergies Active Allergy Reactions Criticality [...] Patient not taking.Reported on 08/05/2023 Nystatin-Triamcino lone 570524-8.1 UNIT/GM-% External Cream (Mycolog)Indicatio ns:Cutaneous candidiasis APPLY [...] hemoglobin A1c goal of less than 8.0% ([facility]) Inject 75 Units under the skin [...] 4 Active Vitamin D (Ergocalciferol) 1.25 MG (67378 UT) Oral Capsule (Drisdol) Take 1 Capsule [...] Overview: 11/02 CT sinus/brain at [facility] shows left maxillary sinusitis. S/p amox, [...] mRNA, LNP-s, No Pre serve, 2-Dose Series (ThetaRay) 10/10/2021,02/26/2021,09/10/2020,08/15 Covid-19, Mrna, Lnp-s, Pf, B ivalent, [...] a buttock hematoma Surgeon: David Niño MD Cafe Assistant: none Anesthesia: local 1% lidocaine with epi, [...] 02/29/2024 10:45 AM EDT Office Visit Dermatology [facility] 200 [facility] [place] [address] Adonis Kilgore MD 200 [facility] [place] [address] 04/22/2024 10:20 AM EDT Office Visit [facility] [address] [place] [address] Yo Paulino CRNP [address] [place] [address] 10/26/2024 10:00 AM EDT Office Visit [facility] [address] [place] [address] Vishnu Allison MD [address] [place] [address] Scheduled Procedures Name Priority Associated Diagnoses Date/Ti [...] Additional history exists CKD HGB USE SMARTSET 90759 05/21/202405/21, 09/12/2022, 02/06/2022, Additional history exists Albumin/Creatinine Ratio 10/18/2024 024, 09/12/2022, 02/06/2022, Additional history exists B-12 10/18/2024 10/19/2023, 08/21, 09/23/2021, Additional history exists CKD PHOS USE SMARTSET 16617 10/18/202409/21, 08/18/2023, 04/09/2023, Additional history exists TSH [...] Power of Attor neetu? No Care Teams Fur Stylist Relationship Specialty Start Date End Date Vishnu Allison MD [address] [place] [address] PCP - General Family Medicine 06/02/14 documented as of this encounter
--- OUTSIDE RECORDS SUMMARY | 2023-12-03 23:41 | External Medical Summary | Summary of Care ---
Author Name Unknown Organization [facility] Address [address] [place] [address] Phone [phone] Care Team Providers Care Consumer Insight Manager Name Role Phone Vishnu Allison MD Primary Care Provider + Reason for Visit * Reason Comments Office Procedure Incision and drainag e from hematoma Encounter Details Date Type Department Care Team (Late st Contact Info) Description 12/02/2023 9:00 AM EDT Office Visit General Surgery, [facility] [address] [place] [address] Everardo Vega MD [address] [place] [address] Subcutaneous hematoma* Allergies Active Allergy Reactions Criticality [...] Patient not taking.Reported on 08/05/2023 Nystatin-Triamcino lone 648889-8.1 UNIT/GM-% External Cream (Mycolog)Indicatio ns:Cutaneous candidiasis APPLY [...] [place]) Inject 75 Units under the skin every [...] 4 Active Vitamin D (Ergocalciferol) 1.25 MG (71888 UT) Oral Capsule (Drisdol) Take 1 Capsule by mouth once a week. 6 Capsule 05/15/202 4 Active Spironolactone 25 MG Oral Tablet (Aldactone)Indicat ions:HTN, goal below 140/90 TAKE 1/2 (ONE-HALF) TABLET BY MOUTH IN THE MORNING 45 Tablet 3 4 Active Hospital, Clinic, or Other Facility Administered Medication Ordered Dose Route Frequency Start Date End Date Status lidocaine 1 % inj 10 mgIndications:Subcutaneous hematoma 10 mg PC ONCE 12/02/2023 12/02/2023 Active documented as of this encounter (statuses [...] mRNA, LNP-s, No Pre serve, 2-Dose Series (InnoCC) 10/10/2021,02/26/2021,09/10/2020,08/15 Covid-19, Mrna, Lnp-s, Pf, B ivalent, [...] as of this encounter Progress Notes * Mica Staley LPN - 12/02/2023 10:10 AM EDT Patient identified by name and date of . Chief Complaint Patient presents with Office Procedure Incision and drainage from hematoma Pt drsg applied and pt had gotten up to get changed and continued to bleed. Pt was repositioned back on the table, pressure applied to area for another 5-10 minutes, than pt dressing re-applied, cleaned up patient, helped pt out of the bed, helped him get cloths on and walked him to check out. Pt reminded that if he has SOB, headaches, fever, chills, night sweats, bleeding that doesn't stop with the use of pressure when trying to take dressing off ( was told to take off and apply new drsg tomorrow). That they should call us. Pt is to come back for a nurse visit in 10 days * Everardo Vega MD - 12/02/2023 9:11 AM EDT Operative note Date: 12/02/2023 Pre-op diagnosis: Deep hematoma buttock Post-op diagnosis: Same Procedure: Incision and drainage of a buttock hematoma Surgeon: Everardo Vega MD Data Base Design Analyst: none Anesthesia: local 1% lidocaine with epi, [...] and was discharged home in stable condition. Everardo Vega MD 12/02/2023 9:12 AM documented in this encounter Miscellaneous Notes * Addendum Note - Everardo Vega MD - 12/02/2023 10:14 AM EDT Addended by: EVERARDO VEGA on: 12/02/2023 10:14 AM Modules accepted: Orders * Addendum Note - Mica Staley LPN - 12/02/2023 10:14 AM EDTAddended by: MICA STALEY on: 12/02/2023 10:14 AM Modules accepted: Orders documented in this encounter Plan of Treatment Upcoming Encounters Date Type Department Care Team (Late st Contact Info) Description 12/11/2023 10:00 AM EDT Nurse Only General Surgery, [facility] [place] [address] [facility] 132 [facility] [place] [address] 02/29/2024 10:45 AM EDT Office Visit Dermatology [facility] 200 [facility] [place] [address] Adonis Kilgore MD [address] [facility] [address] [place] [address] 04/22/2024 10:20 AM EDT Office Visit [facility] [address] [place] [address] Yo Paulino CRNP [address] [place] [address] 10/26/2024 10:00 AM EDT Office Visit [facility] [address] [place] [address] Vishnu Allison MD [address] [place] [address] Scheduled Procedures Name Priority Associated Diagnoses Date/Ti [...] Additional history exists CKD HGB USE SMARTSET 97339 05/21/202405/21, 09/12/2022, 02/06/2022, Additional history exists Albumin/Creatinine Ratio 10/18/2024 024, 09/12/2022, 02/06/2022, Additional history exists B-12 10/18/2024 10/19/2023, 08/21, 09/23/2021, Additional history exists CKD PHOS USE SMARTSET 47789 10/18/202409/21, 08/18/2023, 04/09/2023, Additional history exists TSH [...] Power of Attor neetu? No Care Teams Consumer Insight Manager Relationship Specialty Start Date End Date Vishnu Allison MD [address] [place] [address] PCP - General Family Medicine 06/02/14 documented as of this encounter
--- OUTSIDE RECORDS SUMMARY | 2023-12-03 23:41 | External Medical Summary | Summary of Care ---
Author Name Unknown Organization [facility] Address [address] [place] [address] Phone [phone] Care Team Providers Care Backshoe Person Name Role Phone Vishnu Allison MD Primary Care Provider + Reason for Visit * Reason Comments Office Procedure Incision and drainag e from hematoma Encounter Details Date Type Department Care Team (Late st Contact Info) Description 12/02/2023 9:00 AM EDT Office Visit General Surgery, [facility] [address] [place] [address] David Niño MD [address] [place] [address] Subcutaneous hematoma* Allergies Active Allergy Reactions Criticality [...] Patient not taking.Reported on 08/05/2023 Nystatin-Triamcino lone 958532-8.1 UNIT/GM-% External Cream (Mycolog)Indicatio ns:Cutaneous candidiasis APPLY [...] A1c goal of less than 8.0% ([facility]) Inject 75 Units under the skin every [...] 4 Active Vitamin D (Ergocalciferol) 1.25 MG (07510 UT) Oral Capsule (Drisdol) Take 1 Capsule [...] 10/26/2013 10/23/2016 Overview: 11/02 CT sinus/brain at [facility] shows left maxillary sinusitis. S/p [...] mRNA, LNP-s, No Pre serve, 2-Dose Series (Catapulter) 10/10/2021,02/26/2021,09/10/2020,08/15 Covid-19, Mrna, Lnp-s, Pf, B ivalent, [...] a buttock hematoma Surgeon: David Niño MD Staff Genetic Counselor: none Anesthesia: local 1% lidocaine with epi, [...] 10:00 AM EDT Nurse Only General Surgery, [facility] 132 [facility] [place] [address] WhitakerNurse tobias Gen Surg [facility] 132 [facility] [place] [address] 02/29/2024 10:45 AM EDT Office Visit Dermatology [facility] [place] [place] [address] Adonis Kilgore MD [address] [facility] [place] [address] 04/22/2024 10:20 AM EDT Office Visit [facility] 132 [facility] [place] [address] Yo Paulino CRNP [facility] [place] [address] 10/26/2024 10:00 AM EDT Office Visit [facility] [address] [place] [address] Vishnu Allison MD [address] [place] [address] Scheduled Procedures Name Priority Associated Diagnoses Date/Ti [...] Additional history exists CKD HGB USE SMARTSET 57961 05/21/202405/21, 09/12/2022, 02/06/2022, Additional history exists Albumin/Creatinine Ratio 10/18/2024 024, 09/12/2022, 02/06/2022, Additional history exists B-12 10/18/2024 10/19/2023, 08/21, 09/23/2021, Additional history exists CKD PHOS USE SMARTSET 51247 10/18/202409/21, 08/18/2023, 04/09/2023, Additional history exists TSH [...] Power of Attor neetu? No Care Teams Backshoe Person Relationship Specialty Start Date End Date Vishnu Allison MD [address] [place] [address] PCP - General Family Medicine 06/02/14 documented as of this encounter
--- OUTSIDE RECORDS SUMMARY | 2023-12-03 23:41 | External Medical Summary | Summary of Care ---
Author Name Unknown Organization [facility] Address [address] [place] [address] Phone [phone] Care Team Providers Care Agricultural Pilot Name Role Phone Vishnu Allison MD Primary Care Provider + Reason for Visit * Reason Comments Office Procedure Incision and drainag e from hematoma Encounter Details Date Type Department Care Team (Late st Contact Info) Description 12/02/2023 9:00 AM EDT Office Visit General Surgery, [facility] [address] [place] [address] David Niño MD [address] [place] [address] Subcutaneous hematoma* Allergies Active Allergy Reactions Criticality [...] diphenhydrAMINE HCl (BENADRYL ITCH STOPPING) 2 % GELIndications:Agel matitis due to drug reaction Apply topically [...] Patient not taking.Reported on 08/05/2023 Nystatin-Triamcino lone 967859-7.1 UNIT/GM-% External Cream (Mycolog)Indicatio ns:Cutaneous candidiasis APPLY [...] hemoglobin A1c goal of less than 8.0% ([facility]) Inject 75 Units under the skin [...] 4 Active Vitamin D (Ergocalciferol) 1.25 MG (00365 UT) Oral Capsule (Drisdol) Take 1 Capsule [...] 10/26/2013 10/23/2016 Overview: 11/02 CT sinus/brain at [facility] shows left maxillary sinusitis. S/p [...] mRNA, LNP-s, No Pre serve, 2-Dose Series (PulseOn) 10/10/2021,02/26/2021,09/10/2020,08/15 Covid-19, Mrna, Lnp-s, Pf, B ivalent, [...] a nurse visit in 10 days * David Niño MD - 12/02/2023 9:11 AM EDT Operative note Date: 12/02/2023 Pre-op diagnosis: Deep hematoma buttock Post-op diagnosis: Same Procedure: Incision and drainage of a buttock hematoma Surgeon: David Niño MD Translator: none Anesthesia: local 1% lidocaine with epi, [...] encounter Miscellaneous Notes * Addendum Note - Mica Staley LPN - 12/02/2023 10:14 AM EDTAddended by: MICA STALEY on: 12/02/2023 10:14 AM Modules accepted: Orders documented in this encounter Plan of Treatment Upcoming Encounters Date Type Department Care Team (Late st Contact Info) Description 12/11/2023 10:00 AM EDT Nurse Only General Surgery, [facility] [address] [place] [address] [facility], Nurse Gen Surg [facility] [address] [place] [address] 02/29/2024 10:45 AM EDT Office Visit Dermatology [facility] 200 [facility] [place] [address] Adonis Kilgore MD 200 [facility] [place] [address] 04/22/2024 10:20 AM EDT Office Visit [facility] [address] [place] [address] Yo Paulino CRNP [address] [place] [address] 10/26/2024 10:00 AM EDT Office [facility] [address] [place] [address] Vishnu Allison MD [address] [place] [address] [place] [address] Scheduled Procedures Name Priority Associated Diagnoses Date/Ti me COLONOSCOPY FLEXIBLE PROXIMA L DIAGNOSTIC Recall History of colonic polyps Health Maintenance Due Date Last Done Comments DXA Scan 1950 Zoster Vaccines (2 of 3) 07/25/2013 05/30/2013 COVID-19 Vaccine (2022- season) 2023 03/13/2022, 10/10/2021, 02/26/2021, Additional history exists DTaP,Tdap,and Td Vaccines (2 - Td or Tdap) 03/11/2023 03/11/2013 GFR 04/19/2024 10/19/2023, 07/24, 05/21/2023, Additional history exists HbA1c 04/19/2024 10/19/2023, 03/22, 09/12/2022, Additional history exists Diabetic Eye Exam 04/29/2024 04/29/2023, , 01/03/2020, Additional history exists Diabetic Foot Exam 04/29/2024 04/29/2023, 0 01/06/2022, 07/29/2017, Additional history exists CKD HGB USE SMARTSET 00735 05/21/202405/21, 09/12/2022, 02/06/2022, Additional history exists Albumin/Creatinine Ratio 10/18/2024 024, 09/12/2022, 02/06/2022, Additional history exists B-12 10/18/2024 10/19/2023, 08/21, 09/23/2021, Additional history exists CKD PHOS USE SMARTSET 01176 10/18/202409/21, 08/18/2023, 04/09/2023, Additional history exists TSH [...] Power of Attor neetu? No Care Teams Agricultural Pilot Relationship Specialty Start Date End Date Vishnu Allison MD [address] [place] [address] PCP - General Family Medicine 06/02/14 documented as of this encounter
--- OUTSIDE RECORDS SUMMARY | 2023-12-03 23:41 | External Medical Summary | Summary of Care ---
Author Name Unknown Organization [facility] Address [address] [place] [address] Phone [phone] Care Team Providers Care Customs Opener Verifier Packer Name Role Phone Vishnu Allison MD Primary Care Provider + Reason for Visit * Reason Comments Office Procedure Incision and drainag e from hematoma Encounter Details Date Type Department Care Team (Late st Contact Info) Description 12/02/2023 9:00 AM EDT Office Visit General Surgery, [facility] [address] [place] [address] David Niño MD [address] [place] [address] Subcutaneous hematoma* Allergies Active Allergy Reactions Criticality [...] Patient not taking.Reported on 08/05/2023 Nystatin-Triamcino lone 240912-2.1 UNIT/GM-% External Cream (Mycolog)Indicatio ns:Cutaneous candidiasis APPLY [...] 4 Active Vitamin D (Ergocalciferol) 1.25 MG (50507 UT) Oral Capsule (Drisdol) Take 1 Capsule [...] 10/26/2013 10/23/2016 Overview: 11/02 CT sinus[facility]brain at [facility] shows left maxillary sinusitis. [...] mRNA, LNP-s, No Pre serve, 2-Dose Series (NextDigest) 10/10/2021,02/26/2021,09/10/2020,08/15 Covid-19, Mrna, Lnp-s, Pf, B ivalent, [...] a buttock hematoma Surgeon: David Niño MD Zone Maintenance Technician: none Anesthesia: local 1% lidocaine with epi, [...] 10:00 AM EDT Nurse Only General Surgery, [facility] 132 [facility] [place] [address] WhitakerNurse tobias Gen Surg [facility] 132 [facility] [place] [address] 02/29/2024 10:45 AM EDT Office Visit Dermatology [facility] 200 [facility] [place] [address] Adonis Kilgore MD 200 [facility] [place] [address] 04/22/2024 10:20 AM EDT Office Visit [facility] [address] [facility] [place] [address] Yo Paulino CRNP [facility] [place] [address] 10/26/2024 10:00 AM EDT Office Visit [facility] [address] [place] [address] Vishnu Allison MD [address] [place] [address] Scheduled Procedures Name Priority Associated Diagnoses Date/Ti [...] Additional history exists CKD HGB USE SMARTSET 09184 05/21/202405/21, 09/12/2022, 02/06/2022, Additional history exists Albumin/Creatinine Ratio 10/18/2024 024, 09/12/2022, 02/06/2022, Additional history exists B-12 10/18/2024 10/19/2023, 08/21, 09/23/2021, Additional history exists CKD PHOS USE SMARTSET 62415 10/18/202409/21, 08/18/2023, 04/09/2023, Additional history exists TSH [...] Power of Attor neetu? No Care Teams Customs Opener Verifier Packer Relationship Specialty Start Date End Date Vishnu Allison MD [address] [place] [address] PCP - General Family Medicine 06/02/14 documented as of this encounter
--- OUTSIDE RECORDS SUMMARY | 2023-12-03 23:41 | External Medical Summary | Summary of Care ---
Author Name Unknown Organization [facility] Address [address] [place] [address] Phone [phone] Care Team Providers Care Meteorological Engineer Name Role Phone Vishnu Allison MD Primary Care Provider + Reason for Visit * Reason Comments Office Procedure Incision and drainag e from hematoma Encounter Details Date Type Department Care Team (Late st Contact Info) Description 12/02/2023 9:00 AM EDT Office Visit General Surgery, [facility] [address] [place] [id number] Everardo Vega MD [address] [place] [address] Subcutaneous hematoma* Allergies Active Allergy Reactions Criticality [...] Patient not taking.Reported on 08/05/2023 Nystatin-Triamcino lone 445820-4.1 UNIT/GM-% External Cream (Mycolog)Indicatio ns:Cutaneous candidiasis APPLY [...] than 8.0% ([facility]) Inject 75 Units under the [...] 4 Active Vitamin D (Ergocalciferol) 1.25 MG (61348 UT) Oral Capsule (Drisdol) Take 1 Capsule [...] 10/26/2013 10/23/2016 Overview: 11/02 CT sinus/brain at [facility] shows left maxillary sinusitis. S/p amox, [...] mRNA, LNP-s, No Pre serve, 2-Dose Series ([employer]) 10/10/2021,02/26/2021,09/10/2020,08/15 Covid-19, Mrna, Lnp-s, Pf, B ivalent, [...] a buttock hematoma Surgeon: Everardo Vega MD Soda Jerker: none Anesthesia: local 1% lidocaine with epi, [...] 10:00 AM EDT Nurse Only General Surgery, [facility] [address] [facility] [place] [address] [facility] [address] [facility] [place] [address] 02/29/2024 10:45 AM EDT Office Visit Dermatology [facility] [address] [place] [address] Adonis Kilgore MD [address] [place] [address] 04/22/2024 10:20 AM EDT Office Visit [facility] [address] [place] [address] Yo Paulino CRNP [address] [place] [address] 10/26/2024 10:00 AM EDT Office Visit [facility] [address] [place] [address] Vishnu Allison MD [address] [place] [address] Scheduled Procedures Name Priority Associated Diagnoses Date/Ti [...] Additional history exists CKD HGB USE SMARTSET 96373 05/21/202405/21, 09/12/2022, 02/06/2022, Additional history exists Albumin/Creatinine Ratio 10/18/2024 024, 09/12/2022, 02/06/2022, Additional history exists B-12 10/18/2024 10/19/2023, 08/21, 09/23/2021, Additional history exists CKD PHOS USE SMARTSET 25268 10/18/202409/21, 08/18/2023, 04/09/2023, Additional history exists TSH [...] Power of Attor neetu? No Care Teams Meteorological Engineer Relationship Specialty Start Date End Date Vishnu Allison MD [address] [place] [address] PCP - General Family Medicine 06/02/14 documented as of this encounter
[2023-12-04 07:05] LABS: Hematocrit (blood only) 41.4 % (42.0-52.0); Hemoglobin 13.9 g/dl (14.0-18.0); Mean Corpuscular Hemoglobin 30.7 pg (25.0-34.0); Mean Corpuscular Hgb Conc 33.6 g/dL (32.0-36.0); Mean Corpuscular Volume 91.4 fL (80.0-100.0); Mean Platelet Volume 9.7 fL (9.4-12.4); Platelet Count 144 K/uL (130-400); RDW Standard Deviation 49.8 fL (36.4-46.3); Red Blood Count 4.53 M/uL (4.70-6.10); White Blood Count 8.47 K/ul (4.8-10.8)
[2023-12-04 07:23] LABS: BUN Creatinine Ratio 21.3 (10-20); Calcium 8.6 mg/dl (8.6-10.3); Creatinine Clr Calc Pharmacy 66.3 ml/min; Est GFR (African American) 63.6 ml/min; Est GFR (Non-African American) 54.9 ml/min; Potassium 3.7 mmol/L (3.5-5.1)
--- NOTE | 2023-12-04 09:51 | Pharmacy Report ---
Pharmacy Glycemic Short Note 2 - Date of Service December 04, 2023 - Glycemic Short BSG Results (Last 24 hours): 12/03/23 12/03/23 12/03/23 12:06 17:07 20:44 Glucose POC Glucose 165 H 110 H 132 H 12/04/23 12/04/23 06:38 08:25 Glucose 158 H POC Glucose 131 H OUTPATIENT ANTIDIABETIC REGIMEN: * Lantus 75 units SC HS * Victoza 1.8 mg SC QAM ASSESSMENT: 12/03: * Patient received total 86 units of insulin yesterday: 65 units basal and 21 units bolus. * BSGs yesterday were [id number] mg/dl. Fasting BSG today was 131 mg/dl. * Current basal and bolus regimens providing good glycemic control. Continued the same. 12/03/23: * 73 y/o M admitted for cellulitis and hematomas on b/l buttocks. He has history of Type 2 diabetes managed on basal insulin, Jardiance and SC Victoza at home. * Last night, the home basal dose was reduced slightly and split up into BID doses. Patient received 35 units last night and this AM. * Today, Lantus BID dose reduced slightly again starting at HS to prevent fasting BSG from trending down further. * Novolog parameters based on stress of 2 started last night. Continued the same today. PLAN FOR INPATIENT GLYCEMIC CONTROL: * Hold outpatient oral diabetes medications * Basal insulin * Lantus 30 units SQ BID * Bolus insulin * NovoLog per scale ACHS or Q6hrs while NPO * Goal Range: Low 110 mg/dL - High 140 mg/dL * Correction Factor: 20 mg/dL/unit * Nutritional / Prandial insulin per carb ratio of 1 unit per 7 grams CHO consumed
--- NOTE | 2023-12-04 09:59 | Surgery Progress Note ---
Date of Service December 04, 2023 Assessment & Plan (1) Elevated lactic acid level: (2) Syncope and collapse: Plan: 73 year-old male on Pradaxa underwent I&D of bilateral buttock hematomas in clinic today under local anesthesia with DR. Niño. Presented to ED with bleeding and had syncopal episode in ED triage. CT of pelvis showing no signs of fluid collection or cellulitis. 12/04/2023: hemodynamically stable, hgb 13.9 minimal bleeding at wound edge on right buttock wound after compression dressing and Surgicel dressing. Plan: re-applied hemostatic gauze (surgicel) to right buttock wound and reapplied pressure dressing. Pressure dressing to left buttock. okay from surgical standpoint for discharge once home health set up for dressing changes , wound care follow-up scheduled 12/14/23 at 8:00 am can start wet to dry dressing of the right buttock wound on discharge, change every other day Pressure dressing to left buttock, change daily Dr. Rodriguez has seen and examined pt, agrees with above. (3) Bleeding from wound: Admission and Anticipated Discharge Date Admission Date: December 02, 2023 Supervising Physician Co-Signing Physician Notes I Haveseen and examined the patient personally and agree with the above assessment and plan. In brief he is status post an incision and drainage in the outpatient setting but has continued to bleed from the skin edges. the dressing was taken down today, and there does not appear to be any further bleeding. Good granulation tissue without fibrinous exudate.The wound was again packed with Surgicel and a pressure dressing today. Will continue to monitor his hemoglobin. Continue to hold the Pradaxa. He will need home health set up for taking care of the wound at home. Subjective feeling okay this morning nursing had to change dressing around 4 am Physical Exam Constitutional: WD/WN, vitals as above + obese, cooperative and comfortable; no acute distress and not ill appearing Respiratory: normal respiratory effort; no respiratory distress and no labored breathing Gastrointestinal (Abdomen): External exam: Right buttock with open wound present surrounding ecchymosis is present. The wound bleeding is very minimal at the wound edge . Left buttock with no active bleeding. Skin: no rashes, warm and dry Psychiatric: Orientation: alert and oriented x 3 Results & Data Vital Signs (Past 12 Hours) Vital Signs Temp Pulse Pulse Resp BP BP Pulse Ox 12/04/23 08:52 36.6 C 85 18 112/75 94 12/04/23 06:16 12/04/23 02:50 36.6 C 88 16 94/61 L 94 12/03/23 23:47 90 93 12/03/23 23:43 97/63 L 12/03/23 23:37 36.6 C 95 H 18 96/61 L 92 12/03/23 22:00 96 H O2 Del Method 12/04/23 08:52 Room Air 12/04/23 06:16 Room Air 12/04/23 02:50 Room Air 12/03/23 23:47 Room Air 12/03/23 23:43 12/03/23 23:37 Room Air 12/03/23 22:00 Laboratory Results 12/04/23 12/04/23 12/03/23 Range/Units 08:25 06:38 20:44 WBC 8.47 (4.8-10.8) K/ul RBC 4.53 L (4.70-6.10) M/uL Hgb 13.9 L (14.0-18.0) g/dl Hct 41.4 L (42.0-52.0) % MCV 91.4 (80.0-100.0) fL MCH 30.7 (25.0-34.0) pg MCHC 33.6 (32.0-36.0) g/dL RDW Std Deviation 49.8 H (36.4-46.3) fL RDW Coeff of Gabriela 15.0 H (11.5-14.5) % Plt Count 144 (130-400) K/uL MPV 9.7 (9.4-12.4) fL Sodium 138 (136-145) mmol/L Potassium 3.7 (3.5-5.1) mmol/L Chloride 106 (98-107) mmol/L Carbon Dioxide 27 (21-32) mmol/L Anion Gap 5 (3-11) BUN 27 H (6-23) mg/dl Creatinine 1.27 (0.6-1.4) mg/dl Est Cr Clr Drug Dosing 66.3 ml/min Est GFR ( Amer) 63.6 ml/min Est GFR (Non-Af Amer) 54.9 ml/min BUN/Creatinine Ratio 21.3 H (10-20) Glucose 158 H (70-99(Fasting)) mg/dl POC Glucose 131 H 132 H (70-99) mg/dl Calcium 8.6 (8.6-10.3) mg/dl 12/03/23 12/03/23 12/03/23 Range/Units 17:07 12:13 12:06 WBC (4.8-10.8) K/ul RBC (4.70-6.10) M/uL Hgb 15.2 (14.0-18.0) g/dl Hct 45.3 (42.0-52.0) % MCV (80.0-100.0) fL MCH (25.0-34.0) pg MCHC (32.0-36.0) g/dL RDW Std Deviation (36.4-46.3) fL RDW Coeff of Gabriela (11.5-14.5) % Plt Count (130-400) K/uL MPV (9.4-12.4) fL Sodium (136-145) mmol/L Potassium (3.5-5.1) mmol/L Chloride (98-107) mmol/L Carbon Dioxide (21-32) mmol/L Anion Gap (3-11) BUN (6-23) mg/dl Creatinine (0.6-1.4) mg/dl Est Cr Clr Drug Dosing ml/min Est GFR ( Amer) ml/min Est GFR (Non-Af Amer) ml/min BUN/Creatinine Ratio (10-20) Glucose (70-99(Fasting)) mg/dl POC Glucose 110 H 165 H (70-99) mg/dl Calcium (8.6-10.3) mg/dl
--- NOTE | 2023-12-04 12:57 | Discharge Summary ---
Date of Service December 04, 2023 Admission HPI Per Admitting Provider Renan Harris is a 73y/o M with PMHx of DM type II [on basal insulin], peripheral neuropathy, dyslipidemia, gout, idiopathic hypothyroidism, HTN, permanent atrial fibrillation, venous stasis dermatitis of both lower extremities, non-ischemic cardiomyopathy, morbid obesity, GERD without esophagitis, CKD stage III, history of alcohol dependence [in remission], KARUNA on CPAP and other problems listed below who presented to the ED for evaluation of incessant bleeding from his buttock region s/p I&D of b/l buttock hematomas. History obtained from patient, at bedside and chart review. Patient underwent I&D of b/l buttock hematomas this morning with Dr. Niño at [facility]. Patient states the bleeding from the I&D site started sometime between leaving [facility] and returning home. He has not been able to stop the bleeding and subsequently came to the ED with his . Patient did have an episode in the waiting room where he collapsed/passed out. Patient states that before collapsing he suddenly came lightheaded and his vision went dark. states he never became unresponsive, and mentions the episode lasted only around 3 to 4 seconds. He did fall forward and hit his face off of the grou nd. He remembers doing so. He sustained two skin tears from the fall, one on each dorsal forearm region. Patient currently denies any headache, lightheadedness/dizziness or visual changes. States those symptoms have resolved. Denies any chest pain or SOB. No palpitations. Does report a bruise on his right knee from the fall. Not currently having a lot of pain. Last took his Pradaxa Thursday morning. No changes in bowel or urinary habits, denies any hematuria or blood in stool. Admission Exam Per Admitting Provider See H&P Principal Diagnosis Acute hemorrhage from hematoma post incision and drainage Syncope due to acute blood loss Discharge Exam Constitutional: Alert HEENT: Mucous membranes moist. Lungs: Clear to auscultation, decreased, no wheezes rales or rhonchi CV: S1-S2, regular Abdomen: Soft, nontender, nondistended Extremities: No significant edema Dressings on both hands Surgical dressing on wounds, dry Neuro: No focal deficits Psych: Cooperative, normal mood Discharge Data Allergies Allergy/AdvReac Type Severity Reaction Status Date / Time simvastatin Allergy Intermediate myalgias Verified 12/02/23 13:10 sildenafil Allergy Unknown severe Verified 12/02/23 13:10 headache Consultations 12/02/23 14:34 ED Decision to Admit Stat 12/02/23 15:38 Consult General Surgery Routine 12/02/23 16:03 Consult General Surgery Routine Ordered Studies 12/02/23 11:10 CT head/brain wo con Stat 12/02/23 13:12 CT pelvis w/IV con only Urgent Reviewed imaging, laboratory and diagnostic studies. Pertinent findings as below. CT of the pelvis did not show any increasing or new hematoma. Hemoglobin 13.9 Creatinine 1.27 Hospital Course (1) Postprocedural hemorrhage and hematoma of skin and subcutaneous tissue following dermatologic procedure: (2) Syncope and collapse: (3) Cellulitis of gluteal region: (4) Atrial flutter, paroxysmal: (5) DM (diabetes mellitus): (6) Transient acute renal failure: Plan Patient was admitted to the hospital. His hemoglobin was closely monitored. He was given some IV fluid resuscitation in the setting of his acute kidney injury. Patient was also monitored on telemetry. There is no significant arrhythmias. Surgical consultation was obtained for his bleeding from the site of his incision and drainage. Wound was evaluated and was packed with Surgicel and dressings were changed as needed. Through the course of his hospitalization his hemoglobin ultimately remained overall fairly stable. His lightheadedness and dizziness resolved and he had no further syncopal episodes. He did not require any blood transfusion. On the day of discharge bleeding had essentially resolved. Continue to hold his Pradaxa. His other vital signs are electrolytes were stable. His acute kidney injury completely resolved with hydration. Care management was involved in his care and has coordinated home health care and wound care. He will be instructed to continue to hold his Pradaxa through the weekend and then can be resumed after he is followed up with wound care on Thursday or Thursday. He will continue his other medications as previously prescribed. He will follow-up with surgery and his PCP as coordinated. His at bedside agreeable to plan of care and agreeable to helping with wound care. Home Health Attestation I certify that this patient is under my care and that I, or a physicians physical laboratory assistant working with me, had a face to-face encounter that meets the home health [id number] encounter requirements with this patient. The encounter with the patient was in whole, or in part, for the following medical condition, which is the primary reason for home health care (list medical condition): wound care and teaching; QOD dsg; f/u surgery clinic 12/06 I certify that, based on my findings, the following services are medically necessary home health services: My clinical findings support the need for the above services because: Skilled Nsg Assessment Skilled Nsg Assessment Surgical Incision / Wound Skilled Nsg Assess Pt Illness, Disease and Sx Monitoring Skilled Nsg to Assess, Perform and Teach Wound Care S/S to Report to Provider Further, I certify that my clinical findings support that this patient is homebound (i.e. absences from home require considerable and taxing effort and are for medical reasons or taoism services or infrequently or of short duration when for other reasons) because: Transportation Assistance/Unable to Leave Home Unassisted Certification for Home Health Services: Based on the above findings, I certify that this patient is confined to the home and needs intermittent care home care, physical therapy and/or speech therapy or continues to need occupational therapy. The patient is under my care, and I have initiated the establishment of the plan of care. This patient will be followed by a physician who will periodically review the plan of care. Total Time Total Time Spent Total Time Spent (In Minutes): 26 Discharge Plan Discharge Items Patient Disposition: Home - Home Health Services Reason For Visit: ONGOING BLEEDING S/P I&D OF BUTTOCK HEMATOMAS Discharge Diagnosis: Acute blood loss anemia from incision and drainage of hematoma Activity: As commented below Activity Comment: Gradually increase activity as tolerated Non-emergency contact: Primary Care Provider and Surgeon Call non-emergency contact if: you have any medication questions, your symptoms worsen and your pain is concerning for you Follow-up/Referrals: Vishnu Allison MD [Primary Care Provider] - David Niño MD [Physician] - 12/07/23 10:00 am Diet: Carb Consistent or DM2 Addtl Attending Provider Instructions: Continue with wound care as directed by surgery below Addtl Podiatry Teacher Provider Instructions: Surgical instructions: Scheduled you for a nurse visit in [facility] general surgery office on Wednesday 12/06 at 10 am. Right buttock wound apply wet to dry dressing change every other day Left Buttock apply a pressure dressing and change daily Monitor for bleeding and report back to emergency department if bleeding is uncontrolled Pending Studies at Discharge: No Stand-Alone Forms: My [facility], Smoking Cessation Medications and DC Order Prescriptions: New cephalexin 500 mg Capsule 500 mg PO QID 5 Days Qty: 20 0RF Continued terazosin 2 mg Capsule 2 mg PO HS clonidine HCl 0.3 mg tablet 0.3 mg PO BID gabapentin 100 mg capsule 100 mg PO DAILY zolpidem 10 mg tablet 10 mg PO HS metoprolol succinate 50 mg tablet extended release 24 hr 50 mg PO HS lisinopril 20 mg tablet 20 mg PO QAM metoprolol succinate 100 mg tablet extended release 24 hr 100 mg PO QAM spironolactone 25 mg tablet 12.5 mg PO QAM levothyroxine 75 mcg tablet 75 mcg PO QAM metoprolol succinate 25 mg tablet extended release 24 hr 12.5 mg PO QPM ergocalciferol (vitamin D2) 1,250 mcg (50,000 unit) capsule 1,250 mcg PO WK Rx Instructions: Takes on - will need tomorrow. insulin glargine [Lantus Solostar U-100 Insulin] 100 unit/mL (3 mL) insulin pen 75 unit SUBCUT HS cholecalciferol (vitamin D3) 50 mcg (2,000 unit) capsule 50 mcg PO DAILY Victoza 3-Jak 0.6 mg/0.1 mL (18 mg/3 mL) pen injector 1.8 mg SUBCUT QAM Jardiance 10 mg tablet 10 mg PO QAM torsemide 20 mg tablet 40 mg PO BID pantoprazole 40 mg tablet,delayed release (DR/EC) 40 mg PO BID magnesium oxide 400 mg tablet 750 mg PO DAILY atorvastatin 40 mg tablet 40 mg PO DAILY metformin 500 mg tablet 500 mg PO BID Held dabigatran etexilate 150 mg capsule 150 mg PO BID Hold Instructions: Resume on 12/08/23. Or as directed by surgery or PCP Discharge Orders: Discharge Order (Routine); Ordered 12/04/23 Ordered By: Jose Alberto Anderson Admission Data Admit Date/Time: 12/02/23 15:50 Attending Provider: Jose Alberto Anderson Admit Provider: Black Ratliff Primary Care Provider: Vishnu Allison Other Providers: Nikita Rodriguez; Black Ratliff; [facility]; [place]
== END 2023-12-04 16:21 | disposition home health service (06) | DRG 920 ==
LOC: ED 10:37 → 2N 15:50 → SUATTDRO 15:50 → 2N 17:59

== ENCOUNTER 2025-01-07 18:15 | Observation (INO) ==
[2025-01-07] MEDS: SODIUM CHLORIDE 0.9% 1,000 ML IV ONE ×2 (18:33→19:06)
--- NOTE | 2025-01-07 18:33 | Emergency Department Note ---
Impression & Plan Atrial fibrillation with rapid ventricular response, Hematoma, Bleeding, Acute hypotension ED Provider Note NAME: DARLENE DUNNE AGE: 74 SEX: M : 1950 ARRIVES VIA: Walk-In INFORMANT: Patient ED PROVIDER(S): Amor Oconnor DO CHIEF COMPLAINT: Bleeding wound HPI: Patient is a 74-year-old male with a past medical history of renal failure, hyperlipidemia, hypertension, bleeding hematoma who presents to the ER for bleeding from the wound on his buttocks. He notes he has a hematoma present and intermittently this will bleed the notes. This has been present and they are following with this. They note they are normally able to get it to stop bleeding but have been unsuccessful today. It has been bleeding persistently for the past hour. He denies any blood thinners. No headache or change in vision. No chest pain or shortness of breath. No nausea, vomiting, or diarrhea. No dysuria, urgency, or frequency. No other exacerbating or remitting factors. ADDITIONAL HISTORY OBTAINED: Per HPI Chronic Medical/Social Conditions Affecting Care: Per HPI PAST MEDICAL HISTORY:See Below PAST SURGICAL HISTORY:See Below FAMILY HISTORY:See Below SOCIAL HISTORY:See Below HOME MEDICATIONS:See Below ALLERGIES:See Below VITALS:See Below PHYSICAL EXAMINATION: GENERAL: Sitting up in bed, alert, well appearing, well nourished, no distress, non-toxic EYE EXAM: normal conjunctiva. OROPHARYNX: mucous membranes are moist NECK: supple, no nuchal rigidity, no adenopathy, non-tender LUNGS: Clear to auscultation. Normal chest wall mechanics HEART: no murmurs, S1 normal and S2 normal ABDOMEN: abdomen soft, non-tender, normo-active bowel sounds, no masses, no rebound or guarding. BACK: Back is symmetrical on inspection and there is no deformity, no midline tenderness, no CVA tenderness. SKIN: Hemangioma over bilateral gluteal muscles. Right side UPPER EXTREMITIES: upper extremities are grossly normal. LOWER EXTREMITIES: No pitting edema. NEURO EXAM: Normal sensorium, cranial nerves II-XII grossly intact, normal speech, no gross weakness of arms, no gross weakness of legs. MEDICAL DECISION MAKING: Patient is a 74-year-old male who presents ER for bleeding from hematoma on his butt. He notes and provides additional history that this has been present for over a year. Has been worked on by [facility] and attempt to remove the hematoma unsuccessfully. They note that tonight for the past hour has been persistently bleeding and they have been unable to get it stopped. They deny any blood thinners. IV was established and blood work was obtained. Upon presentation patient is found to be tachycardic with a heart rate in the 130s and his systolic pressures in the 80s. Labs show leukocytosis of 12,000. No significant anemia. INR at 1.1. BMP with a CO2 of 18. Glucose was elevated 221. LFTs bilirubin was unremarkable. Patient was typed and screened. Patient was given 2 L of IV fluids and heart rate trended down to 100 and systolic pressures trended up from the 80s to low 100s. Case was discussed with the hospitalist for further observation management and treatment with the hypertension tachycardia and concern for rebleed. No additional imaging was obtained as and patient note that this has been unchanged. Consults/Care Managements Discussions: Per [facility] Triage Nursing notes reviewed. Limited review of prior medical records performed Vital Signs: reviewed and remarkable for tachy and hypotension Differential diagnosis: Infection, dehydration, metabolic abnormality, hypo/hyperglycemia, electrolyte disturbance, anemia, hypoxia, cardiac sources, intracerebral event, toxicologic, neurologic, as well as other pathologies. ER treatment provided: See below Diagnostics interpreted by me include EKG and cardiac monitoring as listed below: -Cardiac Monitoring: An order was placed for continuous cardiac monitoring. The monitor shows a rate of 123 with Atrial tachy rhythm. -ECG: A-fib rate of 102 Normal axis No PVCs QTc 450 EKG #1 A-fib RVR rate of 138 Normal axis No PVCs Nonspecific ST changes in the lateral leads ST depressions in the inferior leads QTc 469 -Laboratory studies:Interpreted by me as stated above in MDM and shown below. Imaging studies: Xrays: As interpreted by me:none CTs show: none Procedures:none Critical Care: I have personally spent 33 minutes of critical care time in the direct management of this patient. This includes bedside care, interpretation of diagnostic studies, and testing, discussion with consultants, patient, and family members, and other required patient management activities. This 33 minutes is in excess of all separately billable procedures. Past Med/Surg History Problem List (Updated 01/07/25 @ 23:39 by Amor Oconnor DO) Acute hypotension (Acute) Bleeding (Acute) Hematoma (Acute) Atrial fibrillation with rapid ventricular response (Acute) Skin tear of right hand without complication (Acute) Surgical wound, non healing (Acute) Transient acute renal failure Postprocedural hemorrhage and hematoma of skin and subcutaneous tissue following dermatologic procedure Hyperlipidemia HTN (hypertension) DM (diabetes mellitus) Cellulitis of gluteal region Bleeding from wound Elevated lactic acid level (Acute) Syncope and collapse (Acute) GERD (gastroesophageal reflux disease) (Chronic) Paroxysmal a-fib (Chronic) Medical History Atrial flutter, paroxysmal Atrial fibrillation with rapid ventricular response Atrial fibrillation AA (alcohol abuse) "Last drink 1990 " Gout Cerebral aneurysm "SAH Non-aneurysmal SAH ([place] 3, H&H, 1, WFNS 1). No f/u needed 2012" On 09/17/15 12:09 Jennifer Falcon wrote "SAH" BPH (benign prostatic hyperplasia) Morbid obesity Surgical History H/O removal of cyst "knee-bakers cyst" History of repair of anterior cruciate ligament of right knee History of inguinal hernia repair Family History Other Family history non-contributory Social History Smoking Status: Never smoker Second Hand Exposure: No; Do You Dip or Chew Tobacco: No; Tobacco Cessation Education Requested by Patient: No Hx Alcohol Use: No Hx Substance Use: No Preferred Language: Fijian Communication Ability: Effective Procurement Specialist Required: No Beliefs That Will Affect Care: None marital status: Current Living Situation: Spouse Other Information That Helps Us Care for You: No Feels Safe at Home: Yes Safety Concerns: Feels Safe At This Time Diet: regular caffeine: Yes during the past year weight has: decreased > 10 lbs Dental Care, Regularly: No Physical Activity Frequency: Does not Exercise Assistive Devices: Glasses Allergies Allergies Allergy/AdvReac Type Severity Reaction Status Date / Time simvastatin Allergy Intermediate myalgias Verified 01/07/25 19:41 sildenafil Allergy Unknown severe Verified 01/07/25 19:41 headache amiodarone Allergy Rash Verified 01/07/25 19:41 Home Meds Home Medications Medication Instructions Recorded Confirmed clonidine HCl 0.3 mg tablet 0.3 mg PO BID 03/18/18 01/07/25 gabapentin 100 mg capsule 100 mg PO DAILY 03/18/18 01/07/25 terazosin 2 mg capsule 2 mg PO HS 04/28/18 01/07/25 empagliflozin 10 mg tablet 10 mg PO QAM 12/02/23 01/07/25 (Jardiance) insulin glargine 100 unit/mL (3 75 unit subcut HS 12/02/23 01/07/25 mL) subcutaneous pen (Lantus Solostar U-100 Insulin) liraglutide 0.6 mg/0.1 mL (18 mg/3 1.8 mg subcut QAM 12/02/23 01/07/25 mL) subcutaneous pen injector ([employer] 3-Jak) lisinopril 20 mg tablet 20 mg PO PM 12/02/23 01/07/25 metoprolol succinate 100 mg 100 mg PO QAM 12/02/23 01/07/25 tablet,extended release 24 hr metoprolol succinate 25 mg 12.5 mg PO QPM 12/02/23 01/07/25 tablet,extended release 24 hr metoprolol succinate 50 mg 50 mg PO HS 12/02/23 01/07/25 tablet,extended release 24 hr pantoprazole 40 mg tablet,delayed 40 mg PO BID 12/02/23 01/07/25 release spironolactone 25 mg tablet 12.5 mg PO QAM 12/02/23 01/07/25 torsemide 20 mg tablet 40 mg PO BID 12/02/23 01/07/25 zolpidem 10 mg tablet 10 mg PO HS PRN Sleep 12/25/23 01/07/25 allopurinol 300 mg tablet 300 mg PO QAM 01/07/25 01/07/25 atorvastatin 40 mg tablet 40 mg PO QAM 01/07/25 01/07/25 levothyroxine 75 mcg tablet 75 mcg PO DAILYBB 01/07/25 01/07/25 metformin 500 mg tablet 500 mg PO BIDM 01/07/25 01/07/25 Results & Data (ED) Vital Signs Vital Signs - 24 hr 01/07/25 18:15 01/07/25 18:15 01/07/25 18:27 Temperature 36.6 C Temperature Source Temporal Artery Scan Pulse Rate 141 H 139 H Pulse Rate [Left Finger] Pulse Rate from SpO2 Sensor Pulse Rhythm [Left Finger] Pulse Strength [Left Finger] Respiratory Rate 18 18 Respiratory Effort / Characteristics Respiratory Depth Respiratory Pattern Blood Pressure 124/73 Blood Pressure [Left Arm] Blood Pressure Mean 90 Blood Pressure Mean [Left Arm] Blood Pressure Position [Left Arm] Pulse Oximetry 95 Oxygen Delivery Method Sepsis Recent Fever Within 48 Hours No Sepsis New/Unexplained Change in Mental Status N/A Sepsis Action Taken by Nursing No Action Required 01/07/25 18:29 01/07/25 19:04 01/07/25 19:04 Temperature Temperature Source Pulse Rate Pulse Rate [Left Finger] Pulse Rate from SpO2 Sensor Pulse Rhythm [Left Finger] Pulse Strength [Left Finger] Respiratory Rate Respiratory Effort / Characteristics Respiratory Depth Respiratory Pattern Blood Pressure 80/51 L 80/51 L Blood Pressure [Left Arm] Blood Pressure Mean 58 58 Blood Pressure Mean [Left Arm] Blood Pressure Position [Left Arm] Pulse Oximetry 95 Oxygen Delivery Method Room Air Sepsis Recent Fever Within 48 Hours Sepsis New/Unexplained Change in Mental Status Sepsis Action Taken by Nursing 01/07/25 19:06 01/07/25 19:08 01/07/25 19:08 Temperature Temperature Source Pulse Rate 107 H Pulse Rate [Left Finger] Pulse Rate from SpO2 Sensor 105 H Pulse Rhythm [Left Finger] Pulse Strength [Left Finger] Respiratory Rate Respiratory Effort / Characteristics Respiratory Depth Respiratory Pattern Blood Pressure 82/50 L Blood Pressure [Left Arm] Blood Pressure Mean 59 Blood Pressure Mean [Left Arm] Blood Pressure Position [Left Arm] Pulse Oximetry 93 Oxygen Delivery Method Room Air Sepsis Recent Fever Within 48 Hours Sepsis New/Unexplained Change in Mental Status Sepsis Action Taken by Nursing 01/07/25 19:08 01/07/25 19:09 01/07/25 19:10 Temperature Temperature Source Pulse Rate 101 H Pulse Rate [Left Finger] Pulse Rate from SpO2 Sensor 102 H Pulse Rhythm [Left Finger] Pulse Strength [Left Finger] Respiratory Rate Respiratory Effort / Characteristics Respiratory Depth Respiratory Pattern Blood Pressure 82/50 L 90/52 L Blood Pressure [Left Arm] Blood Pressure Mean 59 66 Blood Pressure Mean [Left Arm] Blood Pressure Position [Left Arm] Pulse Oximetry 93 Oxygen Delivery Method Sepsis Recent Fever Within 48 Hours Sepsis New/Unexplained Change in Mental Status Sepsis Action Taken by Nursing 01/07/25 19:15 01/07/25 19:20 01/07/25 19:20 Temperature Temperature Source Pulse Rate Pulse Rate [Left Finger] Pulse Rate from SpO2 Sensor Pulse Rhythm [Left Finger] Pulse Strength [Left Finger] Respiratory Rate Respiratory Effort / Characteristics Respiratory Depth Respiratory Pattern Blood Pressure 81/54 L 87/55 L 87/55 L Blood Pressure [Left Arm] Blood Pressure Mean 61 59 59 Blood Pressure Mean [Left Arm] Blood Pressure Position [Left Arm] Pulse Oximetry Oxygen Delivery Method Sepsis Recent Fever Within 48 Hours Sepsis New/Unexplained Change in Mental Status Sepsis Action Taken by Nursing 01/07/25 19:24 01/07/25 19:25 01/07/25 19:30 Temperature Temperature Source Pulse Rate 102 H Pulse Rate [Left Finger] Pulse Rate from SpO2 Sensor 104 H Pulse Rhythm [Left Finger] Pulse Strength [Left Finger] Respiratory Rate Respiratory Effort / Characteristics Respiratory Depth Respiratory Pattern Blood Pressure 84/47 L 87/48 L Blood Pressure [Left Arm] Blood Pressure Mean 56 59 Blood Pressure Mean [Left Arm] Blood Pressure Position [Left Arm] Pulse Oximetry 93 Oxygen Delivery Method Sepsis Recent Fever Within 48 Hours Sepsis New/Unexplained Change in Mental Status Sepsis Action Taken by Nursing 01/07/25 19:30 01/07/25 19:41 01/07/25 19:49 Temperature Temperature Source Pulse Rate 100 H Pulse Rate [Left Finger] 102 H Pulse Rate from SpO2 Sensor Pulse Rhythm [Left Finger] Irregular Pulse Strength [Left Finger] Normal Respiratory Rate 17 17 Respiratory Effort / Characteristics Non-Labored Spontaneous Respiratory Depth Normal Respiratory Pattern Regular Blood Pressure 87/48 L 92/62 L Blood Pressure [Left Arm] 102/61 Blood Pressure Mean 59 73 Blood Pressure Mean [Left Arm] 74 Blood Pressure Position [Left Arm] Lying Pulse Oximetry 96 Oxygen Delivery Method Room Air Sepsis Recent Fever Within 48 Hours Sepsis New/Unexplained Change in Mental Status Sepsis Action Taken by Nursing 01/07/25 19:50 01/07/25 19:50 01/07/25 19:51 Temperature Temperature Source Pulse Rate 100 H Pulse Rate [Left Finger] Pulse Rate from SpO2 Sensor 100 H Pulse Rhythm [Left Finger] Pulse Strength [Left Finger] Respiratory Rate 12 Respiratory Effort / Characteristics Respiratory Depth Respiratory Pattern Blood Pressure 91/57 L 91/57 L Blood Pressure [Left Arm] Blood Pressure Mean 67 67 Blood Pressure Mean [Left Arm] Blood Pressure Position [Left Arm] Pulse Oximetry 96 Oxygen Delivery Method Sepsis Recent Fever Within 48 Hours Sepsis New/Unexplained Change in Mental Status Sepsis Action Taken by Nursing 01/07/25 19:55 01/07/25 20:00 01/07/25 20:00 Temperature Temperature Source Pulse Rate 105 H Pulse Rate [Left Finger] 101 H Pulse Rate from SpO2 Sensor 105 H Pulse Rhythm [Left Finger] Irregular Pulse Strength [Left Finger] Normal Respiratory Rate 16 21 Respiratory Effort / Characteristics Non-Labored Spontaneous Respiratory Depth Normal Respiratory Pattern Regular Blood Pressure 98/72 L Blood Pressure [Left Arm] 95/61 L Blood Pressure Mean 74 Blood Pressure Mean [Left Arm] 72 Blood Pressure Position [Left Arm] Lying Pulse Oximetry 95 96 Oxygen Delivery Method Room Air Sepsis Recent Fever Within 48 Hours Sepsis New/Unexplained Change in Mental Status Sepsis Action Taken by Nursing 01/07/25 20:00 01/07/25 20:00 01/07/25 20:00 Temperature Temperature Source Pulse Rate Pulse Rate [Left Finger] Pulse Rate from SpO2 Sensor Pulse Rhythm [Left Finger] Pulse Strength [Left Finger] Respiratory Rate Respiratory Effort / Characteristics Respiratory Depth Respiratory Pattern Blood Pressure 95/61 L 95/61 L 95/61 L Blood Pressure [Left Arm] Blood Pressure Mean 76 76 76 Blood Pressure Mean [Left Arm] Blood Pressure Position [Left Arm] Pulse Oximetry Oxygen Delivery Method Sepsis Recent Fever Within 48 Hours Sepsis New/Unexplained Change in Mental Status Sepsis Action Taken by Nursing 01/07/25 20:05 01/07/25 20:05 01/07/25 20:09 Temperature Temperature Source Pulse Rate 106 H Pulse Rate [Left Finger] Pulse Rate from SpO2 Sensor 105 H Pulse Rhythm [Left Finger] Pulse Strength [Left Finger] Respiratory Rate 15 Respiratory Effort / Characteristics Respiratory Depth Respiratory Pattern Blood Pressure 96/67 L 96/67 L Blood Pressure [Left Arm] Blood Pressure Mean 80 80 Blood Pressure Mean [Left Arm] Blood Pressure Position [Left Arm] Pulse Oximetry 95 Oxygen Delivery Method Sepsis Recent Fever Within 48 Hours Sepsis New/Unexplained Change in Mental Status Sepsis Action Taken by Nursing 01/07/25 20:10 01/07/25 20:10 01/07/25 20:12 Temperature Temperature Source Pulse Rate 99 H Pulse Rate [Left Finger] Pulse Rate from SpO2 Sensor 98 H Pulse Rhythm [Left Finger] Pulse Strength [Left Finger] Respiratory Rate 14 Respiratory Effort / Characteristics Respiratory Depth Respiratory Pattern Blood Pressure 98/64 L 98/64 L Blood Pressure [Left Arm] Blood Pressure Mean 73 73 Blood Pressure Mean [Left Arm] Blood Pressure Position [Left Arm] Pulse Oximetry 96 Oxygen Delivery Method Sepsis Recent Fever Within 48 Hours Sepsis New/Unexplained Change in Mental Status Sepsis Action Taken by Nursing 01/07/25 20:20 01/07/25 20:20 01/07/25 20:21 Temperature Temperature Source Pulse Rate 100 H Pulse Rate [Left Finger] Pulse Rate from SpO2 Sensor 100 H Pulse Rhythm [Left Finger] Pulse Strength [Left Finger] Respiratory Rate 18 Respiratory Effort / Characteristics Respiratory Depth Respiratory Pattern Blood Pressure 99/64 L 99/64 L Blood Pressure [Left Arm] Blood Pressure Mean 68 68 Blood Pressure Mean [Left Arm] Blood Pressure Position [Left Arm] Pulse Oximetry 95 Oxygen Delivery Method Sepsis Recent Fever Within 48 Hours Sepsis New/Unexplained Change in Mental Status Sepsis Action Taken by Nursing 01/07/25 20:25 01/07/25 20:30 01/07/25 20:30 Temperature Temperature Source Pulse Rate 100 H Pulse Rate [Left Finger] Pulse Rate from SpO2 Sensor 97 H Pulse Rhythm [Left Finger] Pulse Strength [Left Finger] Respiratory Rate 20 Respiratory Effort / Characteristics Respiratory Depth Respiratory Pattern Blood Pressure 98/64 L 111/59 L Blood Pressure [Left Arm] Blood Pressure Mean 78 72 Blood Pressure Mean [Left Arm] Blood Pressure Position [Left Arm] Pulse Oximetry 95 Oxygen Delivery Method Sepsis Recent Fever Within 48 Hours Sepsis New/Unexplained Change in Mental Status Sepsis Action Taken by Nursing 01/07/25 20:30 01/07/25 20:30 01/07/25 20:35 Temperature Temperature Source Pulse Rate Pulse Rate [Left Finger] Pulse Rate from SpO2 Sensor Pulse Rhythm [Left Finger] Pulse Strength [Left Finger] Respiratory Rate Respiratory Effort / Characteristics Respiratory Depth Respiratory Pattern Blood Pressure 111/59 L 111/59 L 112/65 Blood Pressure [Left Arm] Blood Pressure Mean 72 72 80 Blood Pressure Mean [Left Arm] Blood Pressure Position [Left Arm] Pulse Oximetry Oxygen Delivery Method Sepsis Recent Fever Within 48 Hours Sepsis New/Unexplained Change in Mental Status Sepsis Action Taken by Nursing 01/07/25 20:40 01/07/25 20:40 01/07/25 20:42 Temperature Temperature Source Pulse Rate 105 H Pulse Rate [Left Finger] Pulse Rate from SpO2 Sensor 103 H Pulse Rhythm [Left Finger] Pulse Strength [Left Finger] Respiratory Rate 20 Respiratory Effort / Characteristics Respiratory Depth Respiratory Pattern Blood Pressure 93/70 L 93/70 L Blood Pressure [Left Arm] Blood Pressure Mean 82 82 Blood Pressure Mean [Left Arm] Blood Pressure Position [Left Arm] Pulse Oximetry 97 Oxygen Delivery Method Sepsis Recent Fever Within 48 Hours Sepsis New/Unexplained Change in Mental Status Sepsis Action Taken by Nursing 01/07/25 20:45 01/07/25 20:45 01/07/25 20:45 Temperature Temperature Source Pulse Rate 96 H Pulse Rate [Left Finger] Pulse Rate from SpO2 Sensor 95 H Pulse Rhythm [Left Finger] Pulse Strength [Left Finger] Respiratory Rate 20 Respiratory Effort / Characteristics Respiratory Depth Respiratory Pattern Blood Pressure 117/64 117/64 Blood Pressure [Left Arm] Blood Pressure Mean 68 68 Blood Pressure Mean [Left Arm] Blood Pressure Position [Left Arm] Pulse Oximetry 97 Oxygen Delivery Method Sepsis Recent Fever Within 48 Hours Sepsis New/Unexplained Change in Mental Status Sepsis Action Taken by Nursing 01/07/25 20:50 01/07/25 20:50 01/07/25 20:50 Temperature Temperature Source Pulse Rate Pulse Rate [Left Finger] Pulse Rate from SpO2 Sensor Pulse Rhythm [Left Finger] Pulse Strength [Left Finger] Respiratory Rate Respiratory Effort / Characteristics Respiratory Depth Respiratory Pattern Blood Pressure 121/68 121/68 121/68 Blood Pressure [Left Arm] Blood Pressure Mean 81 81 81 Blood Pressure Mean [Left Arm] Blood Pressure Position [Left Arm] Pulse Oximetry Oxygen Delivery Method Sepsis Recent Fever Within 48 Hours Sepsis New/Unexplained Change in Mental Status Sepsis Action Taken by Nursing 01/07/25 20:51 01/07/25 20:54 Temperature Temperature Source Pulse Rate 99 H 96 H Pulse Rate [Left Finger] Pulse Rate from SpO2 Sensor 95 H 98 H Pulse Rhythm [Left Finger] Pulse Strength [Left Finger] Respiratory Rate 19 18 Respiratory Effort / Characteristics Respiratory Depth Respiratory Pattern Blood Pressure Blood Pressure [Left Arm] Blood Pressure Mean Blood Pressure Mean [Left Arm] Blood Pressure Position [Left Arm] Pulse Oximetry 96 96 Oxygen Delivery Method Sepsis Recent Fever Within 48 Hours Sepsis New/Unexplained Change in Mental Status Sepsis Action Taken by Nursing Laboratory Data 01/07/25 18:25 01/07/25 18:25 Lab Results 01/07/25 01/07/25 01/07/25 Range/Units 18:25 18:29 19:28 WBC 12.72 H (4.8-10.8) K/ul RBC 4.88 (4.70-6.10) M/uL Hgb 13.8 L (14.0-18.0) g/dl POC Hgb 14.6 (14.0-18.0) g/dl Hct 42.7 (42.0-52.0) % POC Hct 43 (42-52) % MCV 87.5 (80.0-100.0) fL MCH 28.3 (25.0-34.0) pg MCHC 32.3 (32.0-36.0) g/dL RDW Std Deviation 50.1 H (36.4-46.3) fL RDW Coeff of Gabriela 15.8 H (11.5-14.5) % Plt Count 185 (130-400) K/uL MPV 9.3 L (9.4-12.4) fL Immature Gran % (Auto) 0.4 % Neut % (Auto) 46.6 % Lymph % (Auto) 36.5 % Frederick % (Auto) 12.6 % Eos % (Auto) 3.5 % Baso % (Auto) 0.4 % Neut # (Auto) 5.94 (1.40-6.50) K/uL Lymph # (Auto) 4.64 H (1.20-3.40) K/uL Frederick # (Auto) 1.60 H (0.11-0.59) K/uL Eos # (Auto) 0.44 (0.00-0.50) K/uL Baso # (Auto) 0.05 (0.00-0.20) K/uL Immature Gran # (Auto) 0.05 (0.01-0.20) K/uL PT 11.6 (9.0-12.0) Seconds INR 1.1 (0.9-1.1) APTT 32 H (21-31) Seconds PTT Ratio 1.2 VBG pH (7.36-7.41) VBG pCO2 (38-50) mmHg VBG pO2 mmHg VBG HCO3 mmol/L VBG O2 Saturation % VBG Base Excess mEq/L POC Sodium 141 (135-144) mmol/L Sodium 139 (136-145) mmol/L POC Potassium 3.9 (3.3-5.0) mmol/L Potassium 3.8 (3.5-5.1) mmol/L POC Chloride 106 (101-112) mmol/L Chloride 105 (98-107) mmol/L Carbon Dioxide 18 L (21-32) mmol/L POC Total CO2 17 L (24-31) mmol/L Anion Gap 16 H (3-11) POC Anion Gap 22.0 (16-25) mmol/L POC BUN 18 (7-18) mg/dl BUN 18 (6-23) mg/dl Creatinine 1.37 (0.6-1.4) mg/dl POC Creatinine 1.4 H (0.6-1.3) mg/dl Est Cr Clr Drug Dosing 62.6 ml/min eGFR 53.46 BUN/Creatinine Ratio 13.1 (10-20) Glucose 221 H (70-99(Fasting)) mg/dl POC Glucose 168 H (70-99) mg/dl POC Glucose (other) 211 H (70-99) mg/dl Calcium 9.3 (8.6-10.3) mg/dl POC Ioniz Calcium Nancy 1.18 (1.12-1.32) mmol/l Total Bilirubin 0.7 (0.2-1.0) mg/dl AST 17 (13-39) U/L ALT 12 (7-52) U/L Alkaline Phosphatase 76 (34-104) U/L Total Protein 7.1 (6.0-8.3) gm/dl Albumin 3.5 (3.4-5.0) gm/dl Globulin 3.6 (2.5-4.0) gm/dl Albumin/Globulin Ratio 1.0 (0.9-2) Blood Type A Positive Antibody Screen NEGATIVE 01/07/25 Range/Units 19:55 WBC (4.8-10.8) K/ul RBC (4.70-6.10) M/uL Hgb (14.0-18.0) g/dl POC Hgb (14.0-18.0) g/dl Hct (42.0-52.0) % POC Hct (42-52) % MCV (80.0-100.0) fL MCH (25.0-34.0) pg MCHC (32.0-36.0) g/dL RDW Std Deviation (36.4-46.3) fL RDW Coeff of Gabriela (11.5-14.5) % Plt Count (130-400) K/uL MPV (9.4-12.4) fL Immature Gran % (Auto) % Neut % (Auto) % Lymph % (Auto) % Frederick % (Auto) % Eos % (Auto) % Baso % (Auto) % Neut # (Auto) (1.40-6.50) K/uL Lymph # (Auto) (1.20-3.40) K/uL Frederick # (Auto) (0.11-0.59) K/uL Eos # (Auto) (0.00-0.50) K/uL Baso # (Auto) (0.00-0.20) K/uL Immature Gran # (Auto) (0.01-0.20) K/uL PT (9.0-12.0) Seconds INR (0.9-1.1) APTT (21-31) Seconds PTT Ratio VBG pH 7.40 (7.36-7.41) VBG pCO2 40 (38-50) mmHg VBG pO2 32 mmHg VBG HCO3 25 mmol/L VBG O2 Saturation < 60.0 % VBG Base Excess 0 mEq/L POC Sodium (135-144) mmol/L Sodium (136-145) mmol/L POC Potassium (3.3-5.0) mmol/L Potassium (3.5-5.1) mmol/L POC Chloride (101-112) mmol/L Chloride (98-107) mmol/L Carbon Dioxide (21-32) mmol/L POC Total CO2 (24-31) mmol/L Anion Gap (3-11) POC Anion Gap (16-25) mmol/L POC BUN (7-18) mg/dl BUN (6-23) mg/dl Creatinine (0.6-1.4) mg/dl POC Creatinine (0.6-1.3) mg/dl Est Cr Clr Drug Dosing ml/min eGFR BUN/Creatinine Ratio (10-20) Glucose (70-99(Fasting)) mg/dl POC Glucose (70-99) mg/dl POC Glucose (other) (70-99) mg/dl Calcium (8.6-10.3) mg/dl POC Ioniz Calcium Nancy (1.12-1.32) mmol/l Total Bilirubin (0.2-1.0) mg/dl AST (13-39) U/L ALT (7-52) U/L Alkaline Phosphatase (34-104) U/L Total Protein (6.0-8.3) gm/dl Albumin (3.4-5.0) gm/dl Globulin (2.5-4.0) gm/dl Albumin/Globulin Ratio (0.9-2) Blood Type Antibody Screen Administered Medications Sodium Chloride (Nss) 1,000 mls @ 100 mls/hr IV .Q10H FRANCY Stop: 01/10/25 22:38 Last Admin: 01/07/25 23:11 Dose: 100 mls/hr Documented By: BOBBY Pantoprazole Sodium (Pantoprazole 40 Mg Tab) 40 mg PO BID FRANCY Stop: 02/06/25 22:38 Last Admin: 01/07/25 23:11 Dose: 40 mg Documented By: BOBBY Zolpidem Tartrate (Zolpidem Tartrate 5 Mg Tab) 10 mg PO HS PRN PRN Reason: Sleep Stop: 02/06/25 22:38 Last Admin: 01/07/25 23:15 Dose: 10 mg Documented By: BOBBY Discontinued Medications Sodium Chloride (Nss) 1,000 mls @ 999 mls/hr IV .Q1H1M ONE Stop: 01/07/25 19:27 Last Infusion: 01/07/25 19:05 Dose: Infused Documented By: Admin: 01/07/25 18:33 Dose: 999 mls/hr Documented By: DHARA Sodium Chloride (Nss) 1,000 mls @ 999 mls/hr IV .Q1H1M ONE Stop: 01/07/25 19:34 Last Infusion: 01/07/25 23:18 Dose: Infused Documented By: Admin: 01/07/25 19:06 Dose: 999 mls/hr Documented By: PAG Discharge Plan Visit Data Chief Complaint: Bleeding Stated Complaint: HEMATURIA ED Provider: Amor Oconnor Discharge Problem: Atrial fibrillation with rapid ventricular response, Hematoma, Bleeding, Acute hypotension Patient Disposition: Admitted As Inpatient Condition: Serious Discharge Instructions Interventions: ED Discharge Assessment Last Done: 01/07/25 22:18
[2025-01-07 18:56] LABS: Hematocrit (blood only) 42.7 % (42.0-52.0); Hemoglobin 13.8 g/dl (14.0-18.0); INR 1.1 (0.9-1.1); Immature Granulocytes # (auto) 0.05 K/uL (0.01-0.20); Immature Granulocytes % (auto) 0.4 %; Mean Corpuscular Hemoglobin 28.3 pg (25.0-34.0); Mean Corpuscular Volume 87.5 fL (80.0-100.0); Partial Thromboplastin Time 32 Seconds (21-31); Platelet Count 185 K/uL (130-400); Prothrombin Time 11.6 Seconds (9.0-12.0); RDW Standard Deviation 50.1 fL (36.4-46.3); Red Blood Count 4.88 M/uL (4.70-6.10); White Blood Count 12.72 K/ul (4.8-10.8)
[2025-01-07 19:05] LABS: Alanine Aminotransferase 12.0 U/L (7-52); Albumin Globulin Ratio 1.0 (0.9-2); Alkaline Phosphatase 76.0 U/L (34-104); Anion Gap 16.0 (3-11); Bilirubin,Total 0.7 mg/dl (0.2-1.0); Blood Urea Nitrogen 18.0 mg/dl (6-23); Calcium 9.3 mg/dl (8.6-10.3); Carbon Dioxide 18.0 mmol/L (21-32); Chloride 105.0 mmol/L (98-107); Creatinine Clr Calc Pharmacy 62.6 ml/min; Globulin 3.6 gm/dl (2.5-4.0); Glucose 221.0 mg/dl (70-99(Fasting)); Potassium 3.8 mmol/L (3.5-5.1); Sodium 139.0 mmol/L (136-145); Total Protein 7.1 gm/dl (6.0-8.3)
[2025-01-07 20:11] LABS: Base Excess VBG 0 mEq/L; HCO3 VBG 25 mmol/L; Oxygen Saturation VBG < 60.0 %; PCO2 VBG 40 mmHg (38-50); PO2 VBG 32 mmHg; pH VBG 7.40 (7.36-7.41)
--- NOTE | 2025-01-07 21:19 | History & Physical Report ---
Date of Service January 07, 2025 Assessment & Plan (1) Bleeding from wound: Plan: 74-year-old male with past medical history significant for type 2 diabetes, dyslipidemia, gout, idiopathic hypothyroidism, obstructive sleep apnea, aortic root enlargement, hypertension, permanent atrial fibrillation, venous stasis dermatitis, heart failure, persistent atrial fibrillation, morbid obesity, CKD stage III, alcohol dependence in remission, history of subarachnoid hemorrhage in 2013, chronic edema, who lives at home comes because of bleeding from his gluteal wounds. Patient had I&D of buttocks hematomas on 12/02/2023. After that wound healed up and the skin around became friable and bleeds on and off. Last month saw colorectal surgery. The sacrococcygeal region is very soft friable but no drainable fluid collection was found at that time and recommend wound care. states patient bleeds couple of times a month and with some pressure the bleeding stops. But today the bleeding did not stop so came to the ER. In the ER initial presentation heart rates were in 140s and systolic blood pressure in the 80s. There a where 2 small spots which were bleeding from the gluteal friable mass. With minimal pressure the bleeding stopped. And no more bleeding in the ER so far. Heart rate and blood pressure improved with the fluids. Currently resting comfortably. Denies any pain. Says micturating okay. No hematuria. No abdominal pain. No chest pain or shortness of breath. No nausea. No headache. No runny nose or sore throat or cough. Afebrile. Bleeding from the wound The sacrococcygeal region Patient seems to have large friable mass in the sacrococcygeal region which bleeds on and offbut today bleeding was not stopping. In the ER with some pressure bleeding stopped Initial presentation tachycardia and hypotension which improved with the fluids Hemoglobin 13.8 Blood consent obtained Will keep him n.p.o. IV fluids Close monitor hemodynamics Follow repeat labs Telemetry Surgery consult in a.m. Diabetes Will hold his metformin and Jardiance and Victoza Cut back on Lantus to 35 units as patient is currently n.p.o. Sliding scale Closely monitor Hypothyroidism Continue Synthyroid Hypertension Holding lisinopril, metoprolol succinate spironolactone and torsemide and terazosin and clonidine as currently blood pressure soft Restart as soon as possible Gout Allopurinol Hyperlipidemia On statin GERD On Protonix Obstructive sleep apnea CPAP nightly Paroxysmal atrial fibrillation Tachybradycardia early evidence nonsymptomatic Patient states not taking Pradaxa since about a year On metoprolol succinate which is held currently IV Lopressor as needed for now Chronic systolic CHF EF 45 to 49% in 2020) with rapid A-fib EF improved to 55 to 15% echo in 07/23/2023 Holding diuretics Monitor for volume overload Abdominal aortic aneurysm 3.4 x 3.2 cm Follow-up DVT prophylaxis SCDs Disposition Telemetry Full code. History of Present Illness Chief Complaint: Bleeding from gluteal wound Primary Care Provider: Vishnu Allison MD 74-year-old male with past medical history significant for type 2 diabetes, dyslipidemia, gout, idiopathic hypothyroidism, obstructive sleep apnea, aortic root enlargement, hypertension, permanent atrial fibrillation, venous stasis dermatitis, heart failure, persistent atrial fibrillation, morbid obesity, CKD stage III, alcohol dependence in remission, history of subarachnoid hemorrhage in 2012, chronic edema, who lives at home comes because of bleeding from his gluteal wounds. Patient had I&D of buttocks hematomas on 12/02/2023. After that wound healed up and the skin around became friable and bleeds on and off. Last month saw colorectal surgery. The sacrococcygeal region is very soft friable but no drainable fluid collection was found at that time and recommend wound care. states patient bleeds couple of times a month and with some pressure the bleeding stops. But today the bleeding did not stop so came to the ER. In the ER initial presentation heart rates were in 140s and systolic blood pressure in the 80s. There a where 2 small spots which were bleeding from the gluteal friable mass. With minimal pressure the bleeding stopped. And no more bleeding in the ER so far. Heart rate and blood pressure improved with the fluids. Currently resting comfortably. Denies any pain. Says micturating okay. No hematuria. No abdominal pain. No chest pain or shortness of breath. No nausea. No headache. No runny nose or sore throat or cough. Afebrile. Past medical history. As mentioned above. Past surgical history. Colonoscopy and EGD. Inguinal hernia repair. Repair of knee ligament. Social history. . No smoking. No currently no alcohol use. No drug use. Family history. Father had liver cancer. Mother had diabetes. Heart disorder. Allergies Allergy/AdvReac Type Severity Reaction Status Date / Time simvastatin Allergy Intermediate myalgias Verified 01/07/25 19:41 sildenafil Allergy Unknown severe Verified 01/07/25 19:41 headache amiodarone Allergy Rash Verified 01/07/25 19:41 Home Medications Medication Instructions Recorded Confirmed Type clonidine HCl 0.3 mg tablet 0.3 mg PO BID 03/18/18 01/07/25 History gabapentin 100 mg capsule 100 mg PO DAILY 03/18/18 01/07/25 History terazosin 2 mg capsule 2 mg PO HS 04/28/18 01/07/25 History empagliflozin 10 mg tablet 10 mg PO QAM 12/02/23 01/07/25 History (Jardiance) insulin glargine 100 unit/mL (3 75 unit subcut HS 12/02/23 01/07/25 History mL) subcutaneous pen (Lantus Solostar U-100 Insulin) liraglutide 0.6 mg/0.1 mL (18 mg/3 1.8 mg subcut QAM 12/02/23 01/07/25 History mL) subcutaneous pen injector (Envox Group 3-Jak) lisinopril 20 mg tablet 20 mg PO PM 12/02/23 01/07/25 History metoprolol succinate 100 mg 100 mg PO QAM 12/02/23 01/07/25 History tablet,extended release 24 hr metoprolol succinate 25 mg 12.5 mg PO QPM 12/02/23 01/07/25 History tablet,extended release 24 hr metoprolol succinate 50 mg 50 mg PO HS 12/02/23 01/07/25 History tablet,extended release 24 hr pantoprazole 40 mg tablet,delayed 40 mg PO BID 12/02/23 01/07/25 History release spironolactone 25 mg tablet 12.5 mg PO QAM 12/02/23 01/07/25 History torsemide 20 mg tablet 40 mg PO BID 12/02/23 01/07/25 History zolpidem 10 mg tablet 10 mg PO HS PRN Sleep 12/25/23 01/07/25 History allopurinol 300 mg tablet 300 mg PO QAM 01/07/25 01/07/25 History atorvastatin 40 mg tablet 40 mg PO QAM 01/07/25 01/07/25 History levothyroxine 75 mcg tablet 75 mcg PO DAILYBB 01/07/25 01/07/25 History metformin 500 mg tablet 500 mg PO BIDM 01/07/25 01/07/25 History Past Med/Surg History Problem List (Updated 01/07/25 @ 23:39 by Amor Oconnor DO) Acute hypotension (Acute) Bleeding (Acute) Hematoma (Acute) Atrial fibrillation with rapid ventricular response (Acute) Skin tear of right hand without complication (Acute) Surgical wound, non healing (Acute) Transient acute renal failure Postprocedural hemorrhage and hematoma of skin and subcutaneous tissue following dermatologic procedure Hyperlipidemia HTN (hypertension) DM (diabetes mellitus) Cellulitis of gluteal region Bleeding from wound Elevated lactic acid level (Acute) Syncope and collapse (Acute) GERD (gastroesophageal reflux disease) (Chronic) Paroxysmal a-fib (Chronic) Medical History Atrial flutter, paroxysmal Atrial fibrillation with rapid ventricular response Atrial fibrillation AA (alcohol abuse) "Last drink 1990 " Gout Cerebral aneurysm "SAH Non-aneurysmal SAH ([place] 3, H&H, 1, WFNS 1). No f/u needed 2012" On 09/17/15 12:09 Jennifer Ezekiel wrote "SAH" BPH (benign prostatic hyperplasia) Morbid obesity Surgical History H/O removal of cyst "knee-bakers cyst" History of repair of anterior cruciate ligament of right knee History of inguinal hernia repair Family History Other Family history non-contributory Social History Smoking Status: Never smoker Second Hand Exposure: No; Do You Dip or Chew Tobacco: No; Tobacco Cessation Education Requested by Patient: No Hx Alcohol Use: No Hx Substance Use: No Preferred Language: Turkmen Communication Ability: Effective Software Systems Analyst Required: No Beliefs That Will Affect Care: None marital status: Current Living Situation: Spouse Other Information That Helps Us Care for You: No Feels Safe at Home: Yes Safety Concerns: Feels Safe At This Time Diet: regular caffeine: Yes during the past year weight has: decreased > 10 lbs Dental Care, Regularly: No Physical Activity Frequency: Does not Exercise Assistive Devices: Glasses Review of Systems Review of Systems: All systems reviewed & are unremarkable except as noted in HPI & below Physical Exam Physical Exam: General- Not in distress Head- atraumatic Eyes- PERRL. ENT- oropharynx clear Neck- supple, no JVD. Lungs- clear to auscultation no wheezing or crackles Heart- regular rhythm; no murmur, no gallop. Abdomen- normal bowel sounds, soft, nontender, no distension Extremities- no pretibial edema, no erythema seen Neuro- alert, oriented PERRL, no facial palsy; no dysarthria. Skin- Large friable mass seen in sacrococcygeal region- No bleeding seen Results & Data Results & Data Vital Signs (Past 12 Hours) Vital Signs Temp Pulse Pulse Resp BP BP Pulse Ox 01/07/25 20:00 101 H 16 95/61 L 95 01/07/25 19:49 102 H 17 102/61 96 01/07/25 19:41 100 H 17 92/62 L 01/07/25 19:30 87/48 L 01/07/25 19:30 87/48 L 01/07/25 19:25 84/47 L 01/07/25 19:24 102 H 93 01/07/25 19:20 87/55 L 01/07/25 19:20 87/55 L 01/07/25 19:15 81/54 L 01/07/25 19:10 90/52 L 01/07/25 19:09 101 H 93 01/07/25 19:08 82/50 L 01/07/25 19:08 82/50 L 01/07/25 19:08 01/07/25 19:06 107 H 93 01/07/25 19:04 80/51 L 01/07/25 19:04 80/51 L 01/07/25 18:29 95 01/07/25 18:27 139 H 01/07/25 18:15 18 01/07/25 18:15 36.6 C 141 H 18 124/73 95 O2 Del Method 01/07/25 20:00 Room Air 01/07/25 19:49 Room Air 01/07/25 19:41 01/07/25 19:30 01/07/25 19:30 01/07/25 19:25 01/07/25 19:24 01/07/25 19:20 01/07/25 19:20 01/07/25 19:15 01/07/25 19:10 01/07/25 19:09 01/07/25 19:08 01/07/25 19:08 01/07/25 19:08 Room Air 01/07/25 19:06 01/07/25 19:04 01/07/25 19:04 01/07/25 18:29 Room Air 01/07/25 18:27 01/07/25 18:15 01/07/25 18:15 Diagnostic Findings Laboratory Results WBC 12.72 K/ul (4.8-10.8) H 01/07/25 18:25 RBC 4.88 M/uL (4.70-6.10) 01/07/25 18:25 Hgb 13.8 g/dl (14.0-18.0) L 01/07/25 18:25 POC Hgb 14.6 g/dl (14.0-18.0) 01/07/25 18:29 Hct 42.7 % (42.0-52.0) 01/07/25 18:25 POC Hct 43 % (42-52) 01/07/25 18:29 MCV 87.5 fL (80.0-100.0) 01/07/25 18:25 MCH 28.3 pg (25.0-34.0) 01/07/25 18:25 MCHC 32.3 g/dL (32.0-36.0) 01/07/25 18:25 RDW Std Deviation 50.1 fL (36.4-46.3) H 01/07/25 18:25 RDW Coeff of Gabriela 15.8 % (11.5-14.5) H 01/07/25 18:25 Plt Count 185 K/uL (130-400) 01/07/25 18:25 MPV 9.3 fL (9.4-12.4) L 01/07/25 18:25 Immature Gran % (Auto) 0.4 % 01/07/25 18:25 Neut % (Auto) 46.6 % 01/07/25 18:25 Lymph % (Auto) 36.5 % 01/07/25 18:25 Shannon % (Auto) 12.6 % 01/07/25 18:25 Eos % (Auto) 3.5 % 01/07/25 18:25 Baso % (Auto) 0.4 % 01/07/25 18:25 Neut # (Auto) 5.94 K/uL (1.40-6.50) 01/07/25 18:25 Lymph # (Auto) 4.64 K/uL (1.20-3.40) H 01/07/25 18:25 Shannon # (Auto) 1.60 K/uL (0.11-0.59) H 01/07/25 18:25 Eos # (Auto) 0.44 K/uL (0.00-0.50) 01/07/25 18: Baso # (Auto) 0.05 K/uL (0.00-0.20) 01/07/25 18: Immature Gran # (Auto) 0.05 K/uL (0.01-0.20) 01/07/25 18: PT 11.6 Seconds (9.0-12.0) 01/07/25 18: INR 1.1 (0.9-1.1) 01/07/25 18: APTT 32 Seconds (21-31) H 01/07/25 18: PTT Ratio 1.2 01/07/25 18:25 VBG pH 7.40 (7.36-7.41) 01/07/25 19:55 VBG pCO2 40 mmHg (38-50) 01/07/25 19:55 VBG pO2 32 mmHg 01/07/25 19:55 VBG HCO3 25 mmol/L 01/07/25 19:55 VBG O2 Saturation < 60.0 % 01/07/25 19:55 VBG Base Excess 0 mEq/L 01/07/25 19:55 POC Sodium 141 mmol/L (135-144) 01/07/25 18:29 Sodium 139 mmol/L (136-145) 01/07/25 18:25 POC Potassium 3.9 mmol/L (3.3-5.0) 01/07/25 18:29 Potassium 3.8 mmol/L (3.5-5.1) 01/07/25 18:25 POC Chloride 106 mmol/L (101-112) 01/07/25 18:29 Chloride 105 mmol/L (98-107) 01/07/25 18:25 Carbon Dioxide 18 mmol/L (21-32) L 01/07/25 18:25 POC Total CO2 17 mmol/L (24-31) L 01/07/25 18: Anion Gap 16 (3-11) H 01/07/25 18:25 POC Anion Gap 22.0 mmol/L (16-25) 01/07/25 18:29 POC BUN 18 mg/dl (7-18) 01/07/25 18: BUN 18 mg/dl (6-23) 01/07/25 18: Creatinine 1.37 mg/dl (0.6-1.4) 01/07/25 18: POC Creatinine 1.4 mg/dl (0.6-1.3) H 01/07/25 18: Est Cr Clr Drug Dosing 62.6 ml/min 01/07/25 18: eGFR 53.46 01/07/25 18: BUN/Creatinine Ratio 13.1 (10-20) 01/07/25 18: Glucose 221 mg/dl (70-99(Fasting)) H 01/07/25 18:25 POC Glucose 168 mg/dl (70-99) H 01/07/25 19:28 POC Glucose (other) 211 mg/dl (70-99) H 01/07/25 18:29 Calcium 9.3 mg/dl (8.6-10.3) 01/07/25 18: POC Ioniz Calcium Nancy 1.18 mmol/l (1.12-1.32) 01/07/25 18: Total Bilirubin 0.7 mg/dl (0.2-1.0) 01/07/25 18:25 AST 17 U/L (13-39) 01/07/25 18: ALT 12 U/L (7-52) 01/07/25 18: Alkaline Phosphatase 76 U/L (34-104) 01/07/25 18: Total Protein 7.1 gm/dl (6.0-8.3) 01/07/25 18:25 Albumin 3.5 gm/dl (3.4-5.0) 01/07/25 18: Globulin 3.6 gm/dl (2.5-4.0) 01/07/25 18: Albumin/Globulin Ratio 1.0 (0.9-2) 01/07/25 18:25 Blood Type A Positive 01/07/25 18:29 Antibody Screen NEGATIVE 01/07/25 18:29 ECG Additional Comments: ECG. SVT rate of 113. ST depression lateral leads. T wave inversion seen inferior leads. QTc 469 Code Status & VTE Plan VTE Prophylaxis Plan VTE Prophylaxis will be ordered: Yes
[2025-01-07] MEDS ORDERED: ACETAMINOPHEN 325 MG TAB PO PRN (22:39)
[2025-01-07] MEDS ORDERED: GLUCOSE 10 TAB/TUBE PO PRN (22:39)
[2025-01-07] MEDS ORDERED: GLUCAGON FOR INJ 1 MG VIAL SQ PRN (22:39)
[2025-01-07] MEDS ORDERED: POLYETHYLENE (MIRALAX) 17 GM PACK PO PRN (22:39)
[2025-01-07] MEDS ORDERED: GLUCOSE 40% GEL 15 GM TUBE PO PRN (22:39)
[2025-01-07] MEDS ORDERED: NITROGLYCERIN SL 0.4 MG/TAB TAB SL PRN (22:39)
[2025-01-07] MEDS ORDERED: METOPROLOL TARTRATE 1 MG/ML VIAL IV PRN (22:39)
[2025-01-07] MEDS ORDERED: DEXTROSE 50% 50 ML SYRINGE IV PRN (22:39)
[2025-01-07] MEDS ORDERED: ACETAMINOPHEN 1,000 MG/100 ML VIAL IV PRN (22:39)
[2025-01-07] MEDS ORDERED: CARBOHYDRATES FOR HYPOGLYCEMIA PO PRN (22:39)
[2025-01-07] MEDS ORDERED: Nursing to Pharmacy Communication SCH (23:00)
[2025-01-07] MEDS: SODIUM CHLORIDE 0.9% 1,000 ML IV SCH (23:11)
[2025-01-07] MEDS: ZOLPIDEM TARTRATE 5 MG TAB PO PRN (23:15)
[2025-01-08] MEDS: INSULIN ASPART PER UNIT CHARGE SC SCH ×2 (00:35→21:19)
[2025-01-08] MEDS: LEVOTHYROXINE SODIUM 75 MCG TABLET PO SCH (05:55)
[2025-01-08 07:48] LABS: Hematocrit (blood only) 33.4 % (42.0-52.0); Hemoglobin 10.8 g/dl (14.0-18.0); Immature Granulocytes # (auto) 0.04 K/uL (0.01-0.20); Immature Granulocytes % (auto) 0.5 %; Mean Corpuscular Hemoglobin 28.4 pg (25.0-34.0); Mean Corpuscular Volume 87.9 fL (80.0-100.0); Platelet Count 115 K/uL (130-400); RDW Standard Deviation 50.6 fL (36.4-46.3); Red Blood Count 3.80 M/uL (4.70-6.10); White Blood Count 8.28 K/ul (4.8-10.8)
[2025-01-08 07:53] LABS: Anion Gap 4.0 (3-11); Blood Urea Nitrogen 17.0 mg/dl (6-23); Calcium 8.2 mg/dl (8.6-10.3); Carbon Dioxide 27.0 mmol/L (21-32); Chloride 112.0 mmol/L (98-107); Creatinine Clr Calc Pharmacy 76.6 ml/min; Glucose 122.0 mg/dl (70-99(Fasting)); Magnesium 1.6 mg/dl (1.7-2.4); Potassium 4.0 mmol/L (3.5-5.1); Sodium 143.0 mmol/L (136-145)
[2025-01-08] MEDS: ATORVASTATIN 40 MG TAB PO SCH (08:17)
[2025-01-08] MEDS: GABAPENTIN 100 MG CAP PO SCH (08:17)
[2025-01-08 10:56] LABS: Hematocrit (blood only) 33.5 % (42.0-52.0); Hemoglobin 10.4 g/dl (14.0-18.0)
--- NOTE | 2025-01-08 12:34 | Hospitalist Progress Note ---
Date of Service January 08, 2025 Assessment & Plan (1) Bleeding from wound: Plan: 74-year-old male with past medical history significant for type 2 diabetes, dyslipidemia, gout, idiopathic hypothyroidism, obstructive sleep apnea, aortic root enlargement, hypertension, permanent atrial fibrillation, venous stasis dermatitis, heart failure, persistent atrial fibrillation, morbid obesity, CKD stage III, alcohol dependence in remission, history of subarachnoid hemorrhage in 2013, chronic edema, who lives at home comes because of bleeding from his gluteal wounds. Patient had I&D of buttocks hematomas on 12/02/2023. After that wound healed up and the skin around became friable and bleeds on and off. Last month saw colorectal surgery. The sacrococcygeal region is very soft friable but no drainable fluid collection was found at that time and recommend wound care. states patient bleeds couple of times a month and with some pressure the bleeding stops. The bleeding did not stop which prompted him to come to the ED Bleeding from the wound from the sacrococcygeal region Acute blood loss anemia Patient seems to have large friable mass in the sacrococcygeal region which bleeds on and off; presented with bleeding from the wound Hemoglobin down trended from 13.8 to 10.4 Bleeding has spontaneously stopped for now; will obtain CT of pelvis with contrast to evaluate the site of the bleeding. Monitor for rebleeding Wound care consulted. Surgery also consulted for comanagement Type 2 Diabetes Will hold his metformin and Jardiance and Victoza on lantus and novolog Hypothyroidism Continue Synthroid Hypertension Holding lisinopril, metoprolol succinate spironolactone and torsemide and terazosin and clonidine as currently blood pressure soft Restart as soon as possible Gout Continue Allopurinol Hyperlipidemia On statin,continue GERD On Protonix, continue Obstructive sleep apnea CPAP nightly Paroxysmal atrial fibrillation Tachybradycardia early evidence nonsymptomatic Patient states not taking Pradaxa since about a year On metoprolol succinate which is held currently IV Lopressor as needed for now Chronic systolic CHF EF 45 to 49% in 2019) with rapid A-fib EF improved to 55 to 15% echo in 07/23/2023 Holding diuretics Monitor for volume overload Abdominal aortic aneurysm 3.4 x 3.2 cm Follow-up DVT prophylaxis SCDs Disposition Telemetry Full code. Time spent evaluating patient, direct bedside care, chart review, placing orders, interpretation of diagnostic studies, discussion with consultants, patient, and family members, as well as other required patient management activities is 50 minutes Please note the above document was generated using voice recognition software. It may contain grammatical, syntax or spelling errors. Any formal questions or c oncerns about the content, text or information contained within the body of this dictation should be directly addressed to the provider for clarification Admission and Anticipated Discharge Date Admission Date: January 07, 2025 Subjective Patient seen and examined at bedside. He is lying comfortably on the bed; not in any distress. He reports that bleeding has stopped for the time being. Review of Systems Review of Systems: All systems reviewed & are unremarkable except as noted in Subjective Physical Exam Physical Exam: General- Not in distress Lungs- clear to auscultation no wheezing or crackles Heart- regular rhythm; no murmur, no gallop. Abdomen- normal bowel sounds, soft, nontender, no distension Extremities- no pretibial edema, no erythema seen Neuro- alert, oriented PERRL, no facial palsy; no dysarthria. Skin- Large friable mass seen in sacrococcygeal region; not currently bleeding Results & Data Results & Data Vital Signs (Past 12 Hours) Vital Signs Temp Pulse Pulse Resp BP Pulse Ox O2 Del Method 01/08/25 11:02 36.6 C 75 19 143/88 H 97 Room Air 01/08/25 08:45 Room Air 01/08/25 07:55 83 01/08/25 07:16 36.7 C 62 19 143/84 H 96 Room Air 01/08/25 03:57 36.7 C 83 14 153/82 H 96 Room Air
[2025-01-08] MEDS: OPTIRAY 320 100ml IV ONE (12:57)
--- NOTE | 2025-01-08 12:57 | Surgery Consultation ---
Date of Consultation January 08, 2025 Assessment & Plan (1) Venous malformation: bilateral gluteal venous malformations local treatment of bleeding will need these excised possibly by vascular surgery and plastics eventually at tertiary center History of Present Illness Attending Physician: Tiago Bang MD History of Present Illness This is a 74-year-old white male with bilateral venous malformations in his buttock areas. These have been drained in the past and bleed intermittently. He was seen by wound care to heal the wounds which have healed. These venous malformations likely need to be excised. Allergies Allergy/AdvReac Type Severity Reaction Status Date / Time simvastatin Allergy Intermediate myalgias Verified 01/07/25 19:41 sildenafil Allergy Unknown severe Verified 01/07/25 19:41 headache amiodarone Allergy Rash Verified 01/07/25 19:41 Home Medications Medication Instructions Recorded Confirmed Type clonidine HCl 0.3 mg tablet 0.3 mg PO BID 03/18/18 01/07/25 History gabapentin 100 mg capsule 100 mg PO DAILY 03/18/18 01/07/25 History terazosin 2 mg capsule 2 mg PO HS 04/28/18 01/07/25 History empagliflozin 10 mg tablet 10 mg PO QAM 12/02/23 01/07/25 History (Jardiance) insulin glargine 100 unit/mL (3 75 unit subcut HS 12/02/23 01/07/25 History mL) subcutaneous pen (Lantus Solostar U-100 Insulin) liraglutide 0.6 mg/0.1 mL (18 mg/3 1.8 mg subcut QAM 12/02/23 01/07/25 History mL) subcutaneous pen injector (Victoza 3-Jak) lisinopril 20 mg tablet 20 mg PO PM 12/02/23 01/07/25 History metoprolol succinate 100 mg 100 mg PO QAM 12/02/23 01/07/25 History tablet,extended release 24 hr metoprolol succinate 25 mg 12.5 mg PO QPM 12/02/23 01/07/25 History tablet,extended release 24 hr metoprolol succinate 50 mg 50 mg PO HS 12/02/23 01/07/25 History tablet,extended release 24 hr pantoprazole 40 mg tablet,delayed 40 mg PO BID 12/02/23 01/07/25 History release spironolactone 25 mg tablet 12.5 mg PO QAM 12/02/23 01/07/25 History torsemide 20 mg tablet 40 mg PO BID 12/02/23 01/07/25 History zolpidem 10 mg tablet 10 mg PO HS PRN Sleep 12/25/23 01/07/25 History allopurinol 300 mg tablet 300 mg PO QAM 01/07/25 01/07/25 History atorvastatin 40 mg tablet 40 mg PO QAM 01/07/25 01/07/25 History levothyroxine 75 mcg tablet 75 mcg PO DAILYBB 01/07/25 01/07/25 History metformin 500 mg tablet 500 mg PO BIDM 01/07/25 01/07/25 History Patient History Medical History Atrial flutter, paroxysmal Atrial fibrillation with rapid ventricular response Atrial fibrillation AA (alcohol abuse) "Last drink 1990 " Gout Cerebral aneurysm "SAH Non-aneurysmal SAH ([place] 3, H&H, 1, WFNS 1). No f/u needed 2012" On 09/17/15 12:09 Jennifer Falcon wrote "SAH" BPH (benign prostatic hyperplasia) Morbid obesity Surgical History H/O removal of cyst "knee-bakers cyst" History of repair of anterior cruciate ligament of right knee History of inguinal hernia repair Family History Other Family history non-contributory Social History Smoking Status: Never smoker Second Hand Exposure: No; Do You Dip or Chew Tobacco: No; Tobacco Cessation Education Requested by Patient: No Hx Alcohol Use: No Hx Substance Use: No Preferred Language: Persian Communication Ability: Effective Systems Specialist Required: No Beliefs That Will Affect Care: None marital status: Current Living Situation: Spouse Other Information That Helps Us Care for You: No Feels Safe at Home: Yes Safety Concerns: Feels Safe At This Time Diet: regular caffeine: Yes during the past year weight has: decreased > 10 lbs Dental Care, Regularly: No Physical Activity Frequency: Does not Exercise Assistive Devices: Glasses Review of Systems Constitutional: no fever and no chills Eyes: no problem reported Ear, Nose, Mouth, Throat: no problem reported Respiratory: no cough and no dyspnea Cardiovascular: no chest pain Gastrointestinal: no abdominal pain, no nausea and no vomiting Genitourinary: no dysuria Musculoskeletal: no problem reported Integumentary: + bleeding lesions Neurologic: no localized weakness and no generalized weakness Psychiatric: no behavioral changes Physical Exam Constitutional: WD/WN, vitals as above Eyes: no scleral abnormality ENMT: external ear and nose normal, oropharynx normal Neck: trachea midline Respiratory: normal respiratory effort Cardiovascular: Rate/Rhythm: regular rate and regular rhythm Gastrointestinal (Abdomen): Inspection/Auscultation: abdomen normal to inspection; abdomen not distended Percussion/Palpation: abdomen soft Musculoskeletal: Head/Neck/Chest: normocephalic and head atraumatic Skin: 5 bilateral venous malformations in his gluteal region with small area of bleeding Results & Data Vital Signs (Past 12 Hours) Vital Signs Temp Pulse Pulse Resp BP Pulse Ox O2 Del Method 01/08/25 11:02 36.6 C 75 19 143/88 H 97 Room Air 01/08/25 08:45 Room Air 01/08/25 07:55 83 01/08/25 07:16 36.7 C 62 19 143/84 H 96 Room Air 01/08/25 03:57 36.7 C 83 14 153/82 H 96 Room Air Diagnostic Findings [place] [phone] CT Scan Report Patient: DARLENE DUNNE Admit Date: 12/02/23 MR#: [id number] Address1: [address] [place] [address] Acct ID:[id number] Address2: Date: 1950 [facility] Zip: [place] [address] Age: 73 Location: ED Sex: M Room/Bed: Att Phy: Diagnosis: BLEEDING AFTER PROCEDURE Patience Phy: Vishnu Allison MD Service Date: 12/02/23 Fam Phy: Interpreting Phy: Pancho LozadaAdmit Phy: Ordering Phy: Maranda Chairez MD cc: ~ CT pelvis w/IV con only HISTORY: 73 years-old Male recent procedure to right glute with active hemorr acute right gluteal pain with recent procedure COMPARISON: None TECHNIQUE: Multiple axial CT images of the pelvis were obtained with IV contra st. A dose lowering technique was used consistent with the principals of AYAN. FINDINGS: Atherosclerosis of the abdominal aorta. There is uniform ectasia of the infrarenal abdominal aorta measuring 2.8 cm. Partially imaged probable cysts of the right kidney. Colonic diverticulosis. No bowel obstruction or bowel wall thickening identified. No intrapelvic fluid collections. Left inguinal surgical clips. Small fat filled umbilical hernia with diastases of 2.7 cm. Unremarkable appearance of the bilateral gluteal and upper thigh musculature. Nonenlarged bilateral inguinal chain lymph nodes. There is mild nonspecific skin thickening within the right medial gluteal fold tissues. No drainable fluid collections. No perianal fistulas identified. No acute fracture or destructive bone lesion. Mild osteoarthritis of the hips. IMPRESSION: 1. Mild nonspecific skin thickening within the right medial gluteal fold may represent a mild cellulitis. No abscess or fistula. 2. No acute intrapelvic abnormality. 3. Colonic diverticulosis.
--- NOTE | 2025-01-08 13:53 | CT Scan Report ---
Clinical history: Bleeding Technique: Axial computed tomography images were obtained of the pelvis after the administration of intravenous contrast Findings: No fracture is identified. No focal osseous lesion is seen. The sacroiliac joints appear unremarkable. There is no sign of osteomyelitis The visualized musculature appears unremarkable. There is a partially visualized 1 cm right renal cyst. There is a partially visualized abdominal aortic aneurysm, measuring 3.9 cm. The common iliac arteries are borderline aneurysmal, measuring 1.5 cm. There is a small umbilical hernia containing only fat There is subcutaneous edema of the right buttock. No clear abscess, hematoma, or other focal fluid collection is seen The iliac arteries are of normal caliber. No adenopathy is noted. There is sigmoid diverticulosis without definite diverticulitis. There are small bilateral inguinal hernias containing only fat. No free intraperitoneal fluid or air is seen. No definite pathology of the urinary bladder is noted Impression: 1. Subcutaneous edema of the right buttock that could be due to cellulitis 2. No definite abscess, hematoma, or foreign body 3. Partially visualized abdominal aortic aneurysm 4. Diverticulosis without definite diverticulitis 5. Partially visualized small right renal cyst 6. Small umbilical and bilateral inguinal hernias containing only fat Electronically signed by Pedro Beal 01-08-2025 13:53 PM
--- NOTE | 2025-01-08 16:46 | Electrocardiogram Report ---
Test Reason : Blood Pressure : */* mmHG Vent. Rate : 138 BPM Atrial Rate : * BPM P-R Int : * ms QRS Dur : 98 ms QT Int : 310 ms P-R-T Axes : * 62 241 degrees QTcB Int : 469 ms Suspect atrial flutter with 2:1 AV conduction Abnormal ECG When compared with ECG of 02-Dec-2023 11:07, Criteria for Septal infarct are no longer Present Minimal criteria for Inferior infarct are no longer Present ST now depressed in Lateral leads T wave inversion now evident in Inferior leads Confirmed by Johnny Torres ([id number]) on 01/08/2025 4:45:39 PM Referred By: REFERRED SELF Confirmed By: Johnny Torres
--- NOTE | 2025-01-08 16:52 | Electrocardiogram Report ---
Test Reason : Blood Pressure : */* mmHG Vent. Rate : 102 BPM Atrial Rate : * BPM P-R Int : * ms QRS Dur : 88 ms QT Int : 346 ms P-R-T Axes : * 39 18 degrees QTcB Int : 450 ms Atrial fibrillation with rapid ventricular response Low voltage QRS Cannot rule out Anterior infarct , age undetermined Abnormal ECG When compared with ECG of 07-Jan-2025 18:30, (unconfirmed) Atrial fibrillation has replaced Atrial flutter QRS voltage has decreased Confirmed by Johnny Torres ([id number]) on 01/08/2025 4:52:04 PM Referred By: REFERRED SELF Confirmed By: Johnny Torres
[2025-01-08 17:13] LABS: Hematocrit (blood only) 34.9 % (42.0-52.0); Hemoglobin 10.9 g/dl (14.0-18.0)
[2025-01-08] MEDS: LANTUS PER UNIT CHARGE SQ SCH (21:18)
[2025-01-09 03:07] VITALS: RESP 18
[2025-01-09 06:37] LABS: Hematocrit (blood only) 33.2 % (42.0-52.0); Hemoglobin 10.4 g/dl (14.0-18.0); Immature Granulocytes # (auto) 0.04 K/uL (0.01-0.20); Immature Granulocytes % (auto) 0.5 %; Mean Corpuscular Hemoglobin 28.0 pg (25.0-34.0); Mean Corpuscular Volume 89.2 fL (80.0-100.0); Platelet Count 125 K/uL (130-400); RDW Standard Deviation 51.1 fL (36.4-46.3); Red Blood Count 3.72 M/uL (4.70-6.10); White Blood Count 8.57 K/ul (4.8-10.8)
[2025-01-09 06:52] LABS: Anion Gap 3.0 (3-11); Blood Urea Nitrogen 16.0 mg/dl (6-23); Calcium 8.5 mg/dl (8.6-10.3); Carbon Dioxide 26.0 mmol/L (21-32); Chloride 112.0 mmol/L (98-107); Creatinine Clr Calc Pharmacy 75.2 ml/min; Glucose 141.0 mg/dl (70-99(Fasting)); Potassium 4.2 mmol/L (3.5-5.1); Sodium 141.0 mmol/L (136-145)
[2025-01-09 08:20] LABS: Hemoglobin A1C 6.7 % (4.5-5.6)
[2025-01-09 09:57] VITALS: PULSE 95
[2025-01-09 10:51] VITALS: BP 129/71; TEMP 98.8; O2SAT 96
--- NOTE | 2025-01-09 12:24 | Hospitalist Progress Note ---
Date of Service January 09, 2025 Assessment & Plan (1) Bleeding from wound: Plan: 74-year-old male with past medical history significant for type 2 diabetes, dyslipidemia, gout, idiopathic hypothyroidism, obstructive sleep apnea, aortic root enlargement, hypertension, permanent atrial fibrillation, venous stasis dermatitis, heart failure, persistent atrial fibrillation, morbid obesity, CKD stage III, alcohol dependence in remission, history of subarachnoid hemorrhage in 2013, chronic edema, who lives at home comes because of bleeding from his gluteal wounds. Patient had I&D of buttocks hematomas on 12/02/2023. After that wound healed up and the skin around became friable and bleeds on and off. Last month saw colorectal surgery. The sacrococcygeal region is very soft friable but no drainable fluid collection was found at that time and recommend wound care. states patient bleeds couple of times a month and with some pressure the bleeding stops. The bleeding did not stop which prompted him to come to the ED Bleeding from the wound from the sacrococcygeal region Venous malformation Acute blood loss anemia Patient seems to have large friable mass in the sacrococcygeal region which bleeds on and off; presented with bleeding from the wound Hemoglobin down trended from 13.8 to 10.4 Bleeding has spontaneously stopped for now; Pelvic CT with contrast showed subcutaneous edema of right buttocks; no definite abscess, hematoma or foreign body. Surgery consulted; recommend excision by vascular surgery and plastics eventually at tertiary care center as outpatient. Type 2 Diabetes Will hold his metformin and Jardiance and Victoza on lantus and novolog Hypothyroidism Continue Synthroid Hypertension Holding lisinopril, metoprolol succinate spironolactone and torsemide and terazosin and clonidine as currently blood pressure soft Restart as soon as possible Gout Continue Allopurinol Hyperlipidemia On statin,continue GERD On Protonix, continue Obstructive sleep apnea CPAP nightly Paroxysmal atrial fibrillation Tachybradycardia early evidence nonsymptomatic Patient states not taking Pradaxa since about a year On metoprolol succinate which is held currently IV Lopressor as needed for now Chronic systolic CHF EF 45 to 49% in 2019) with rapid A-fib EF improved to 55 to 15% echo in 07/23/2023 Holding diuretics Monitor for volume overload Abdominal aortic aneurysm 3.4 x 3.2 cm Follow-up DVT prophylaxis SCDs Disposition Telemetry Full code. Time spent evaluating patient, direct bedside care, chart review, placing orders, interpretation of diagnostic studies, discussion with consultants, patient, and family members, as well as other required patient management activities is 50 minutes Please note the above document was generated using voice recognition software. It may contain grammatical, syntax or spelling errors. Any formal questions or concerns about the content, text or information contained within the body of this dictation should be directly addressed to the provider for clarification Admission and Anticipated Discharge Date Admission Date: January 07, 2025 Subjective Patient seen and examined at bedside. He reports that he has pain in his buttocks; had minimal bleeding yesterday with stopped Review of Systems Review of Systems: All systems reviewed & are unremarkable except as noted in Subjective Physical Exam Physical Exam: General- Not in distress Lungs- clear to auscultation no wheezing or crackles Heart- regular rhythm; no murmur, no gallop. Abdomen- normal bowel sounds, soft, nontender, no distension Extremities- no pretibial edema, no erythema seen Neuro- alert, oriented PERRL, no facial palsy; no dysarthria. Skin- friable mass seen in sacrococcygeal region; not currently bleeding Results & Data Results & Data Vital Signs (Past 12 Hours) Vital Signs Temp Pulse Pulse Resp BP Pulse Ox O2 Del Method 01/09/25 10:50 37.1 C 95 H 18 129/71 96 Room Air 01/09/25 10:12 Room Air 01/09/25 09:57 95 H 01/09/25 06:59 36.8 C 93 H 18 169/72 H 94 Room Air 01/09/25 03:06 36.7 C 86 18 154/84 H 96 Room Air
--- NOTE | 2025-01-09 12:27 | Discharge Summary ---
Date of Service January 09, 2025 Admission HPI Per Admitting Provider 74-year-old male with past medical history significant for type 2 diabetes, dyslipidemia, gout, idiopathic hypothyroidism, obstructive sleep apnea, aortic root enlargement, hypertension, permanent atrial fibrillation, venous stasis dermatitis, heart failure, persistent atrial fibrillation, morbid obesity, CKD stage III, alcohol dependence in remission, history of subarachnoid hemorrhage in 2013, chronic edema, who lives at home comes because of bleeding from his gluteal wounds. Patient had I&D of buttocks hematomas on 12/02/2023. After that wound healed up and the skin around became friable and bleeds on and off. Last month saw colorectal surgery. The sacrococcygeal region is very soft friable but no drainable fluid collection was found at that time and recommend wound care. states patient bleeds couple of times a month and with some pressure the bleeding stops. But today the bleeding did not stop so came to the ER. In the ER initial presentation heart rates were in 140s and systolic blood pressure in the 80s. There a where 2 small spots which were bleeding from the gluteal friable mass. With minimal pressure the bleeding stopped. And no more bleeding in the ER so far. Heart rate and blood pressure improved with the fluids. Currently resting comfortably. Denies any pain. Says micturating okay. No hematuria. No abdominal pain. No chest pain or shortness of breath. No nausea. No headache. No runny nose or sore throat or cough. Afebrile. Past medical history. As mentioned above. Past surgical history. Colonoscopy and EGD. Inguinal hernia repair. Repair of knee ligament. Social history. . No smoking. No currently no alcohol use. No drug use. Family history. Father had liver cancer. Mother had diabetes. Heart disorder. Admission Exam Per Admitting Provider General- Not in distress Head- atraumatic Eyes- PERRL. ENT- oropharynx clear Neck- supple, no JVD. Lungs- clear to auscultation no wheezing or crackles Heart- regular rhythm; no murmur, no gallop. Abdomen- normal bowel sounds, soft, nontender, no distension Extremities- no pretibial edema, no erythema seen Neuro- alert, oriented PERRL, no facial palsy; no dysarthria. Skin- Large friable mass seen in sacrococcygeal region- No bleeding seen Principal Diagnosis Bleeding from the wound from the sacrococcygeal region Acute blood loss anemia Discharge Exam General- Not in distress Lungs- clear to auscultation no wheezing or crackles Heart- regular rhythm; no murmur, no gallop. Abdomen- normal bowel sounds, soft, nontender, no distension Extremities- no pretibial edema, no erythema seen Neuro- alert, oriented PERRL, no facial palsy; no dysarthria. Skin- friable mass seen in sacrococcygeal region; not currently bleeding Discharge Data Allergies Allergy/AdvReac Type Severity Reaction Status Date / Time simvastatin Allergy Intermediate myalgias Verified 01/07/25 19:41 sildenafil Allergy Unknown severe Verified 01/07/25 19:41 headache amiodarone Allergy Rash Verified 01/07/25 19:41 Consultations 01/07/25 19:38 ED Decision to Admit Stat 01/08/25 08:00 Consult General Surgery Routine Ordered Studies 01/08/25 12:25 CT pelvis w/IV con only Urgent Hospital Course (1) Bleeding from wound: 74-year-old male with past medical history significant for type 2 diabetes, dyslipidemia, gout, idiopathic hypothyroidism, obstructive sleep apnea, aortic root enlargement, hypertension, permanent atrial fibrillation, venous stasis dermatitis, heart failure, persistent atrial fibrillation, morbid obesity, CKD stage III, alcohol dependence in remission, history of subarachnoid hemorrhage in 2012, chronic edema, who lives at home comes because of bleeding from his gluteal wounds. Patient had I&D of buttocks hematomas on 12/02/2023. After that wound healed up and the skin around became friable and bleeds on and off. Last month saw colorectal surgery. The sacrococcygeal region is very soft friable but no drainable fluid collection was found at that time and recommend wound care. states patient bleeds couple of times a month and with some pressure the bleeding stops. The bleeding did not stop which prompted him to come to the ED Bleeding from the wound from the sacrococcygeal region Venous malformation Acute blood loss anemia Patient seems to have large friable mass in the sacrococcygeal region which bleeds on and off; presented with bleeding from the wound Hemoglobin down trended from 13.8 to 10.4; stable after it Patient was admitted to medical floor for close observation for recurrence of the bleeding. Pelvic CT with contrast was done which did not show hematoma. Surgery was consulted for comanagement; they recommend excision by vascular surgery and plastic surgery eventually [facility] as outpatient. Patient did not have any recurrence of bleeding. He was discharged home with instructions to follow-up with PCP and obtain referral for vascular surgery and plastic surgery for definitive management Please note the above document was generated using voice recognition software. It may contain grammatical, syntax or spelling errors. Any formal questions or concerns about the content, text or information contained within the body of this dictation should be directly addressed to the provider for clarification Total Time Total Time Spent Total Time Spent (In Minutes): 45 Total Time Includes: Examination of the Patient, Discharge Planning, Medication Reconciliation, Communication With Other Providers and Other Discharge Plan Discharge Items Reason For Visit: BLEEDING FROM GLUTEAL WOUND Condition on Discharge: Serious Follow-up/Referrals: Vishnu Allison MD [Primary Care Provider] - (Date & Time 01/16/2025 9:00 AM Provider: Vishnu Allison MD [facility] ) Medications and DC Order Prescriptions: No Action terazosin 2 mg Capsule 2 mg PO HS clonidine HCl 0.3 mg tablet 0.3 mg PO BID gabapentin 100 mg capsule 100 mg PO DAILY zolpidem 10 mg tablet 10 mg PO HS PRN (Reason: Sleep) metoprolol succinate 50 mg tablet extended release 24 hr 50 mg PO HS lisinopril 20 mg tablet 20 mg PO PM metoprolol succinate 100 mg tablet extended release 24 hr 100 mg PO QAM spironolactone 25 mg tablet 12.5 mg PO QAM metoprolol succinate 25 mg tablet extended release 24 hr 12.5 mg PO QPM insulin glargine [Lantus Solostar U-100 Insulin] 100 unit/mL (3 mL) insulin pen 75 unit SUBCUT HS liraglutide [Victoza 3-Ajk] 0.6 mg/0.1 mL (18 mg/3 mL) pen injector 1.8 mg SUBCUT QAM Jardiance 10 mg tablet 10 mg PO QAM torsemide 20 mg tablet 40 mg PO BID pantoprazole 40 mg tablet,delayed release (DR/EC) 40 mg PO BID atorvastatin 40 mg tablet 40 mg PO QAM metformin 500 mg tablet 500 mg PO BIDM Rx Instructions: take with morning and evening meal allopurinol 300 mg tablet 300 mg PO QAM levothyroxine 75 mcg tablet 75 mcg PO DAILYBB Rx Instructions: take 30 minutes before breakfast or other meds Krames/Other Patient Handouts: Nutrition for Wound Healing, Managing Type 2 Diabetes Admission Data Admit Date/Time: 01/07/25 20:55 Attending Provider: Tiago Bagn Admit Provider: Magan Gray Primary Care Provider: Vishnu Allison Other Providers: Magan Gray; David Niño
== END 2025-01-09 13:38 | disposition home or self-care (01) | DRG 300 ==
LOC: ED 18:15 → 2S 20:55 → INTOOBSV 20:55 → 2S 22:18

== ENCOUNTER 2025-01-24 18:23 | Inpatient (IN) ==
[2025-01-24] MEDS: DEXTROSE 50% 50 ML SYRINGE IV ONE (18:30)
[2025-01-24 18:49] LABS: Hematocrit (blood only) 32.9 % (42.0-52.0); Hemoglobin 10.6 g/dl (14.0-18.0); Immature Granulocytes # (auto) 0.04 K/uL (0.01-0.20); Immature Granulocytes % (auto) 0.4 %; Mean Corpuscular Hemoglobin 27.0 pg (25.0-34.0); Mean Corpuscular Volume 83.9 fL (80.0-100.0); Platelet Count 200 K/uL (130-400); RDW Standard Deviation 47.0 fL (36.4-46.3); Red Blood Count 3.92 M/uL (4.70-6.10); White Blood Count 11.23 K/ul (4.8-10.8)
[2025-01-24] MEDS: RAPID SEQUENCE INDUCTION BAG ONE (18:59)
[2025-01-24 19:09] LABS: Acetaminophen < 3 ug/ml (10-30); Salicylate < 3.0 mg/dl (3.0-30)
[2025-01-24 19:10] LABS: Alanine Aminotransferase 11 U/L (7-52); Alkaline Phosphatase 77 U/L (34-104); Anion Gap 7 (3-11); Bilirubin,Total 0.9 mg/dl (0.2-1.0); Blood Urea Nitrogen 10 mg/dl (6-23); Calcium 9.0 mg/dl (8.6-10.3); Carbon Dioxide 26 mmol/L (21-32); Chloride 105 mmol/L (98-107); Glucose 82 mg/dl (70-99(Fasting)); Lipase 4 U/L (11-82); Sodium 138 mmol/L (136-145); Total Protein 6.3 gm/dl (6.0-8.3)
[2025-01-24] MEDS: OPTIRAY 320 125ml IV ONE ×2 (19:27→21:12)
[2025-01-24] MEDS ORDERED: ETOMIDATE 2 MG/ML 20 ML VIAL IV ONE (19:32)
[2025-01-24] MEDS ORDERED: ROCURONIUM BROMIDE 10 MG/ML 5 ML VIAL IV ONE (19:32)
--- NOTE | 2025-01-24 19:34 | XRay Report ---
Clinical History: Unresponsive Technique: A frontal view of the chest was obtained Findings: There are interstitial and alveolar opacities throughout the left lung, most likely due to pneumonia. The heart is mildly enlarged. No right pleural effusion or pneumothorax is seen. There is a small left pleural effusion There is an endotracheal tube with its tip 5.7 cm above the katja, in satisfactory position. There is thoracic scoliosis Impression: 1. Endotracheal tube in expected position 2. Left lung pneumonia 3. Small left pleural effusion Electronically signed by Pedro Beal 01-24-2025 7:33 PM
[2025-01-24] MEDS ORDERED: PROPOFOL BOLUS FROM BAG IV PRN ×2 (19:50→23:38)
--- NOTE | 2025-01-24 19:55 | CT Scan Report ---
Clinical History: Unresponsive Technique: Axial computed tomography images were obtained of the brain without intravenous contrast. Findings: There is diffuse cerebral atrophy, within expected limits for the patient's age. Areas of decreased attenuation are seen within the periventricular white matter, likely representing chronic small vessel ischemic disease. 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 No intracranial hemorrhage is evident. No definite mass lesion is seen on this noncontrast examination. There is no midline shift or other form of herniation. No hydrocephalus is seen. No fracture is identified. There is complete opacification of the left maxillary sinus. There is mucosal thickening in the frontal and ethmoid sinuses. The mastoid air cells appear clear. Impression: 1. Cerebral atrophy, old infarct, and chronic small vessel ischemic disease 2. Sinusitis Electronically signed by Pedro Beal 01-24-2025 7:55 PM
[2025-01-24] MEDS: PROPOFOL IV EMULSION 10 MG/ML 100 ML VIAL IV ONE (19:56)
[2025-01-24 19:57] LABS: Base Excess VBG 0.4 mEq/L; HCO3 VBG 28 mmol/L; Oxygen Saturation VBG 68.8 %; PCO2 VBG 55 mmHg (38-50); PO2 VBG 45 mmHg; pH VBG 7.31 (7.36-7.41)
--- NOTE | 2025-01-24 19:58 | CT Scan Report ---
Clinical history: Unresponsive Technique: Axial computed tomography images were obtained of the brain after the administration of intravenous contrast according to the CT angiogram protocol Findings: No definite stenosis or aneurysm is seen of the anterior, middle, or posterior cerebral artery circulations. The visualized vertebral arteries and the basilar artery appear unremarkable Impression: No definite stenosis or aneurysm of the intracranial arteries Electronically signed by Pedro Beal 01-24-2025 7:57 PM
[2025-01-24] MEDS: STAT IV Infusion **Titration per Protocol STA (20:00)
--- NOTE | 2025-01-24 20:01 | CT Scan Report ---
Clinical history: Unresponsive Technique: Axial computed tomography images were obtained of the neck after the administration of intravenous contrast according to the CT angiogram protocol Findings: No stenosis is seen of the common carotid arteries bilaterally. The carotid bulbs are patent. There is tortuosity of the mid internal carotid arteries bilaterally. No stenosis of the external carotid arteries is seen The vertebral arteries are patent bilaterally with no significant stenosis seen. The visualized thoracic aorta appears unremarkable There is multilevel degenerative disc disease and osteoarthritis of the cervical spine. There are partially calcified thyroid nodules bilaterally Impression: 1. No definite stenosis of the neck arteries 2. Indeterminate thyroid nodules. A follow-up thyroid ultrasound could be obtained ACT 112: Positive. There are findings on this exam that require communication between the performing entity and the patient following Patient Test Result Information Act ([place] ACT 112) guidelines. Electronically signed by Pedro Beal 01-24-2025 8:00 PM
[2025-01-24] MEDS: ACETAMINOPHEN 1,000 MG/100 ML VIAL IV STA (20:03)
[2025-01-24] MEDS: ACETAMINOPHEN 1000 MG/100 ML IV IV ONE (20:10)
--- NOTE | 2025-01-24 20:10 | CT Scan Report ---
CT of the chest with contrast Technique: Postcontrast axial images of the chest. Coronal and sagittal reformatted images made available for review No comparison Findings: Endotracheal tube is present with its tip above the katja. 2.2 cm calcified right thyroid lobe nodule. Irregular thickening of the thyroid isthmus. Although this study is suboptimal for the evaluation of pulmonary emboli there is suggestion of a filling defect within the right upper and lower lobe pulmonary arteries. Similar-appearing though not as conspicuous filling defects are noted within the left main pulmonary artery. Recommend repeat CT scan utilizing pulmonary artery embolus protocol for further evaluation. There is subtle flattening of the interventricular septum which suggests right heart strain. Trace pericardial effusion. Coronary artery calcifications. Left upper lobe infiltrate with left basilar atelectasis. No mediastinal, hilar, or axillary lymphadenopathy. Bone windows demonstrate no focal abnormality. Please see separate dictation for details of the intra-abdominal contents. Impression Although the study is suboptimal for the evaluation of the pulmonary arteries there is suggestion of filling defects within the right upper and lower lobe pulmonary arteries as well as within the left main pulmonary artery. Findings are highly suspicious for pulmonary embolus. Recommend repeat CT angiogram, PE protocol. Evidence of right heart strain. Electronically signed by Amor Marte 01-24-2025 8:09 PM
[2025-01-24 20:17] LABS: Potassium 3.5 mmol/L (3.5-5.1)
--- NOTE | 2025-01-24 20:17 | CT Scan Report ---
CT ABDOMEN and PELVIS with INTRAVENOUS CONTRAST HISTORY: Abdominal pain TECHNIQUE: CT abdomen and pelvis with contrast. IV CONTRAST: 100 mL of OMNIPAQUE 300 ENTERIC CONTRAST: Not Given COMPARISON: CT of the pelvis January 08, 2025 FINDINGS: LIVER: No focal lesion identified. Mild hepatomegaly. GALLBLADDER/BILIARY: Unremarkable gallbladder. No abnormal biliary dilatation. SPLEEN: Unremarkable. PANCREAS: Unremarkable. ADRENALS: Unremarkable. KIDNEYS: Cortical cysts. No stones or hydronephrosis identified. PERITONEUM/RETROPERITONEUM. No lymphadenopathy by size criteria. Infrarenal abdominal aortic aneurysm measuring up to 3.4 cm. GASTROINTESTINAL: No obstruction. Colonic diverticulosis without evidence of diverticulitis. REPRODUCTIVE: Unremarkable URINARY BLADDER: Mild inflammatory changes with wall thickening. ABDOMINAL WALL: Small right larger than left fat-containing hernias. Small fat-containing umbilical hernia. Redemonstrated subcutaneous phlegmonous changes in the buttocks bilaterally, right more than involved than the left. When compared to the pelvic CT examination from January 08, 2025, the visualized inflammatory changes appear improved. No well-formed/drainable fluid collection is identified. BONES: No acute findings. IMPRESSION: Redemonstrated subcutaneous phlegmonous changes in the buttocks bilaterally, right more than involved than the left. When compared to the pelvic CT examination from January 08, 2025, the visualized inflammatory changes appear improved. No well-formed/drainable fluid collection is identified. Mild inflammatory changes of the urinary bladder may be due to cystitis. Electronically signed by Joon Damon 01-24-2025 8:17 PM
[2025-01-24 20:29] LABS: Appearance Urine Clear (Clear); Bacteria Urine Automated None Seen (None Seen); Glucose Urine UA 3+ (Negative); RBC Urine Automated 0-2 /hpf (0-2); WBC Urine Automated 0-5 /hpf (0-5)
[2025-01-24] MEDS ORDERED: HEPARIN SOD (PORCINE) 1000 UNIT/ML IV ONE (20:37)
[2025-01-24] MEDS ORDERED: HEPARIN 25000 UNIT/500 ML D5W 25,000 UNITS/500 ML BAG IV SCH (20:45)
--- NOTE | 2025-01-24 20:51 | History & Physical Report ---
Date of Service January 24, 2025 Assessment & Plan (1) Acute hypoxemic respiratory failure: Plan: Assessment and plan below following discussion of case with ED provider and reviewing patient history/pertinent normal/abnormal diagnostic test results. Acute hypoxemic, hypercapnic respiratory failure Status post intubation at the ER Multifactorial: Aspiration pneumonia secondary to unresponsiveness from hypoglycemia of unknown duration, possible sepsis PE with strain, initial occurrence, rule out LE DVT as source Rapid A-fib secondary to illness, currently off anticoagulation secondary to intermittently bleeding buttock varicosities chronic diastolic heart failure (EF 55%, TTE 2023), patient on the dry side valvular heart disease (moderate TR/mild AR) hypertension, elevated secondary to illness hyperlipidemia, on statin Rx hx PVD history non-aneurysmal subarachnoid hemorrhage as per records DM 2 insulin requiring, hypoglycemia at home, well-controlled as of recent hemoglobin A1c of 6.7 last month hypothyroidism, recent outpatient TSH from last month slightly elevated at 4.5 chronic anemia, hemoglobin stable from discharge last month GERD on PPI past alcohol abuse Admit to ICU Vent management Recheck ABG CS, Unasyn Follow CT angio chest dedicated PE study LE venous Dopplers rule out DVT IV heparin if imaging study positive (Patient not ideal candidate for full dose with bolus given recent bleeding buttock wounds resulting in hemoglobin drop and history of nonaneurysmal subarachnoid hemorrhage.) IV Lopressor RTC while n.p.o. Appropriate to hold basal insulin for now given hypoglycemic episodes. BSG checks; ISS BG goal 140-180 once BSG consistently above 180 DVT prophylaxis. Heparin GI prophylaxis. Patient PPI Full code Attempted to contact patient's family (Miss Liz Harris, , contact #[phone]/Mr. Zackery Rico/son, contact #[phone]) over the phone to obtain additional history and to discuss plan of care. No answer. Total critical care time was 40 minutes. Text document was generated using [employer] voice recognition software. It may contain grammatical or spelling errors. Kindly contact undersigned for clarification of any documentation item in question. History of Present Illness Chief Complaint: Unresponsiveness, hypoglycemia as per records Primary Care Provider: Vishnu Allison MD History obtained from ED provider and records. Unable to obtain history from patient secondary to unresponsive/intubated state. 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 Recent confinement last month for intermittently bleeding sacrococcygeal wounds. Outpatient vascular and plastic surgery consultations recommended by surgery. Hemoglobin down to 10 from 13 at time of discharge. No recurrence of bleeding since discharge as per outpatient PCP follow-up note from 2 weeks ago. [facility] [place] vascular surgery later recommended IR referral for management of buttock venous malformation upon correspondence with PCP. Patient noted to be unresponsive on welfare check today. BSG 30s. Patient brought to ER for evaluation. Concern for aspiration with gasping/gurgling respiration as per ED provider. Lowest O2 sats of 60s documented. Subsequent intubation done at the ER. 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 Allergies Allergy/AdvReac Type Severity Reaction Status Date / Time simvastatin Allergy Intermediate myalgias Verified 01/07/25 19:41 sildenafil Allergy Unknown severe Verified 01/07/25 19:41 headache amiodarone Allergy Rash Verified 01/07/25 19:41 Home Medications Medication Instructions Recorded Confirmed Type clonidine HCl 0.3 mg tablet 0.3 mg PO BID 03/18/18 01/24/25 History terazosin 2 mg capsule 2 mg PO HS 04/28/18 01/24/25 History empagliflozin 10 mg tablet 10 mg PO QAM 12/02/23 01/24/25 History (Jardiance) insulin glargine 100 unit/mL (3 75 unit subcut HS 12/02/23 01/24/25 History mL) subcutaneous pen (Lantus Solostar U-100 Insulin) liraglutide 0.6 mg/0.1 mL (18 mg/3 1.2 mg subcut QAM 12/02/23 01/24/25 History mL) subcutaneous pen injector (Victoza 3-Jak) lisinopril 20 mg tablet 20 mg PO PM 12/02/23 01/24/25 History metoprolol succinate 100 mg 100 mg PO QAM 12/02/23 01/24/25 History tablet,extended release 24 hr metoprolol succinate 25 mg 12.5 mg PO QPM 12/02/23 01/24/25 History tablet,extended release 24 hr metoprolol succinate 50 mg 50 mg PO HS 12/02/23 01/24/25 History tablet,extended release 24 hr spironolactone 25 mg tablet 12.5 mg PO QAM 12/02/23 01/24/25 History torsemide 20 mg tablet 40 mg PO BID 12/02/23 01/24/25 History zolpidem 10 mg tablet 10 mg PO HS PRN Sleep 12/25/23 01/24/25 History allopurinol 300 mg tablet 300 mg PO QAM 01/07/25 01/24/25 History atorvastatin 40 mg tablet 40 mg PO QAM 01/07/25 01/24/25 History levothyroxine 75 mcg tablet 75 mcg PO DAILYBB 01/07/25 01/24/25 History metformin 500 mg tablet 500 mg PO BIDM 01/07/25 01/24/25 History gabapentin 100 mg capsule 100 mg PO DAILY 01/24/25 01/24/25 History pantoprazole 40 mg tablet,delayed 40 mg PO BID 01/24/25 01/24/25 History release Past Med/Surg History Problem List (Updated 01/25/25 @ 10:41 by David Ponce MD) Acute hypoxemic respiratory failure Aspiration into airway Pericardial effusion Bilateral pulmonary embolism Acute encephalopathy Venous malformation Acute hypotension (Acute) Bleeding (Acute) Hematoma (Acute) Atrial fibrillation with rapid ventricular response (Acute) Skin tear of right hand without complication (Acute) Surgical wound, non healing (Acute) Transient acute renal failure Postprocedural hemorrhage and hematoma of skin and subcutaneous tissue following dermatologic procedure Hyperlipidemia HTN (hypertension) DM (diabetes mellitus) Cellulitis of gluteal region Bleeding from wound Elevated lactic acid level (Acute) Syncope and collapse (Acute) GERD (gastroesophageal reflux disease) (Chronic) Paroxysmal a-fib (Chronic) Medical History Atrial flutter, paroxysmal Atrial fibrillation with rapid ventricular response Atrial fibrillation AA (alcohol abuse) "Last drink 1990 " Gout Cerebral aneurysm "SAH Non-aneurysmal SAH ([place] 3, H&H, 1, WFNS 1). No f/u needed 2012" On 09/17/15 12:09 Jennifer Falcon wrote "SAH" BPH (benign prostatic hyperplasia) Morbid obesity Surgical History H/O removal of cyst "knee-bakers cyst" History of repair of anterior cruciate ligament of right knee History of inguinal hernia repair Family History Other Family history non-contributory Social History Smoking Status: Unknown if ever smoked Second Hand Exposure: No; Do You Dip or Chew Tobacco: No; Hx Alcohol Use: No Hx Substance Use: No Preferred Language: Yoruba Communication Ability: Effective Brood Station Manager Required: No Beliefs That Will Affect Care: None marital status: Current Living Situation: Spouse Other Information That Helps Us Care for You: No Feels Safe at Home: Yes Diet: regular caffeine: Yes during the past year weight has: decreased > 10 lbs Dental Care, Regularly: No Physical Activity Frequency: Does not Exercise Assistive Devices: Glasses Review of Systems Review of Systems: Could not be reliably obtained secondary to intubated state Physical Exam Physical Exam: GENERAL: Sedated, intubated, obese SKIN: Pallor, warm HEENT: Pale palpebral conjunctivae, no ptosis, dry buccal mucosa, ET in place NECK : Supple, short neck, no tenderness CHEST : Decreased breath sounds, no tenderness HEART : Irregular, no obvious murmurs ABDOMEN: Some distention, nontender EXTREMITIES : Bilateral LE venous stasis without tenderness, palpable pulses, no other conspicuous deformities noted NEUROLOGIC : Sedated, no facial asymmetry, gait and stance not assessed Results & Data Results & Data Vital Signs (Past 12 Hours) Vital Signs Temp Pulse Pulse Resp BP BP Pulse Ox 01/24/25 20:03 39.0 C H 137 H 18 97 01/24/25 20:00 156/98 H 01/24/25 19:58 39.0 C H 01/24/25 19:57 39.0 C H 137 H 18 97 01/24/25 19:54 38.9 C H 137 H 18 97 01/24/25 19:33 130 H 14 99 01/24/25 19:32 170/80 H 01/24/25 19:06 136 H 72 L 01/24/25 19:00 134 H 184/97 H 67 L 01/24/25 18:55 121 H 01/24/25 18:46 93 H 01/24/25 18:31 100 H 28 H 144/91 H 98 01/24/25 18:31 98 01/24/25 18:31 100 H 28 H 144/91 H 98 O2 Del Method O2 Flow Rate 01/24/25 20:03 Mechanical Vent 01/24/25 20:00 01/24/25 19:58 01/24/25 19:57 Mechanical Vent 01/24/25 19:54 Mechanical Vent 01/24/25 19:33 Mechanical Vent 01/24/25 19:32 01/24/25 19:06 Ambu-Bag 01/24/25 19:00 Ambu-Bag 01/24/25 18:55 01/24/25 18:46 01/24/25 18:31 Non-rebreather 15 01/24/25 18:31 Non-rebreather 15 01/24/25 18:31 Non-rebreather 15 Laboratory Results Laboratory Results WBC 11.23 K/ul (4.8-10.8) H 01/24/25 18:30 RBC 3.92 M/uL (4.70-6.10) L 01/24/25 18:30 Hgb 10.6 g/dl (14.0-18.0) L 01/24/25 18:30 POC Hgb 10.9 g/dl (14.0-18.0) L 01/24/25 18:36 Hct 32.9 % (42.0-52.0) L 01/24/25 18:30 POC Hct 32 % (42-52) L 01/24/25 18:36 MCV 83.9 fL (80.0-100.0) 01/24/25 18:30 MCH 27.0 pg (25.0-34.0) 01/24/25 18:30 MCHC 32.2 g/dL (32.0-36.0) 01/24/25 18:30 RDW Std Deviation 47.0 fL (36.4-46.3) H 01/24/25 18:30 RDW Coeff of Gabriela 15.5 % (11.5-14.5) H 01/24/25 18:30 Plt Count 200 K/uL (130-400) 01/24/25 18:30 MPV 9.1 fL (9.4-12.4) L 01/24/25 18:30 Immature Gran % (Auto) 0.4 % 01/24/25 18:30 Neut % (Auto) 84.7 % 01/24/25 18:30 Lymph % (Auto) 7.0 % 01/24/25 18:30 [place] % (Auto) 7.8 % 01/24/25 18:30 Eos % (Auto) 0.0 % 01/24/25 18:30 Baso % (Auto) 0.1 % 01/24/25 18:30 Neut # (Auto) 9.51 K/uL (1.40-6.50) H 01/24/25 18:30 Lymph # (Auto) 0.79 K/uL (1.20-3.40) L 01/24/25 18:30 Hays # (Auto) 0.88 K/uL (0.11-0.59) H 01/24/25 18:30 Eos # (Auto) 0.00 K/uL (0.00-0.50) 01/24/25 18:30 Baso # (Auto) 0.01 K/uL (0.00-0.20) 01/24/25 18:30 Immature Gran # (Auto) 0.04 K/uL (0.01-0.20) 01/24/25 18:30 VBG pH 7.31 (7.36-7.41) L 01/24/25 19:40 VBG pCO2 55 mmHg (38-50) H 01/24/25 19:40 VBG pO2 45 mmHg 01/24/25 19:40 VBG HCO3 28 mmol/L 01/24/25 19:40 VBG O2 Saturation 68.8 % 01/24/25 19:40 VBG Base Excess 0.4 mEq/L 01/24/25 19:40 POC Sodium 139 mmol/L (135-144) 01/24/25 18:36 Sodium 138 mmol/L (136-145) 01/24/25 18:30 POC Potassium 3.6 mmol/L (3.3-5.0) 01/24/25 18:36 Potassium 3.5 mmol/L (3.5-5.1) 01/24/25 19:40 POC Chloride 104 mmol/L (101-112) 01/24/25 18:36 Chloride 105 mmol/L (98-107) 01/24/25 18:30 Carbon Dioxide 26 mmol/L (21-32) 01/24/25 18:30 POC Total CO2 25 mmol/L (24-31) 01/24/25 18:36 Anion Gap 7 (3-11) 01/24/25 18:30 POC Anion Gap 14.0 mmol/L (16-25) L 01/24/25 18:36 POC BUN 9 mg/dl (7-18) 01/24/25 18:36 BUN 10 mg/dl (6-23) 01/24/25 18:30 Creatinine 0.98 mg/dl (0.6-1.4) 01/24/25 18:30 POC Creatinine 1.1 mg/dl (0.6-1.3) 01/24/25 18:36 Est Cr Clr Drug Dosing Not Reportable 01/24/25 18:30 eGFR 79.92 01/24/25 18:30 BUN/Creatinine Ratio 10.2 (10-20) 01/24/25 18:30 Glucose 82 mg/dl (70-99(Fasting)) 01/24/25 18:30 POC Glucose 132 mg/dl (70-99) H 01/24/25 18:56 POC Glucose (other) 82 mg/dl (70-99) 01/24/25 18:36 Lactate 1.1 mmol/L (0.4-2.0) 01/24/25 20:32 Calcium 9.0 mg/dl (8.6-10.3) 01/24/25 18:30 POC Ioniz Calcium Nancy 1.16 mmol/l (1.12-1.32) 01/24/25 18:36 Total Bilirubin 0.9 mg/dl (0.2-1.0) 01/24/25 18:30 Direct Bilirubin 0.3 mg/dl (0-0.2) H 01/24/25 19:40 AST 21 U/L (13-39) 01/24/25 19:40 ALT 11 U/L (7-52) 01/24/25 18:30 Alkaline Phosphatase 77 U/L (34-104) 01/24/25 18:30 Troponin I High Sens 30.0 pg/ml (0-20) H 01/24/25 19:40 Total Protein 6.3 gm/dl (6.0-8.3) 01/24/25 18:30 Albumin 3.0 gm/dl (3.4-5.0) L 01/24/25 18:30 Lipase 4 U/L (11-82) L 01/24/25 18:30 Urine Color Yellow 01/24/25 19:39 Urine Appearance Clear (Clear) 01/24/25 19:39 Urine pH 5.5 (4.5-7.5) 01/24/25 19:39 Ur Specific Gary > 1.045 (1.000-1.030) H 01/24/25 19:39 Urine Protein 2+ (Negative) H 01/24/25 19:39 Urine Glucose (UA) 3+ (Negative) H 01/24/25 19:39 Urine Ketones Trace (Negative) H 01/24/25 19:39 Urine Blood 1+ (Negative) H 01/24/25 19:39 Urine Nitrite Negative (Negative) 01/24/25 19:39 Urine Bilirubin Negative (Negative) 01/24/25 19:39 Urine Urobilinogen Negative (Negative) 01/24/25 19:39 Ur Leukocyte Esterase Negative (Negative) 01/24/25 19:39 Urine WBC (Auto) 0-5 /hpf (0-5) 01/24/25 19:39 Urine RBC (Auto) 0-2 /hpf (0-2) 01/24/25 19:39 U Hyaline Cast (Auto) 6-10 /lpf (0-2) H 01/24/25 19:39 U Epithel Cells (Auto) 3-5 /hpf (0-2) H 01/24/25 19:39 Urine Bacteria (Auto) None Seen (None Seen) 01/24/25 19:39 Granular Casts Present /lpf (None Prsent) A 01/24/25 19:39 Urine Comment 01/24/25 19:39 Salicylates < 3.0 mg/dl (3.0-30) L 01/24/25 18:30 Acetaminophen < 3 ug/ml (10-30) L 01/24/25 18:30 Ethyl Alcohol mg/dL < 10.0 mg/dl (<10.0) 01/24/25 19:40 Impressions Chest X-Ray 01/24/25 18:34 Clinical History: Unresponsive Technique: A frontal view of the chest was obtained Findings: There are interstitial and alveolar opacities throughout the left lung, most likely due to pneumonia. The heart is mildly enlarged. No right pleural effusion or pneumothorax is seen. There is a small left pleural effusion There is an endotracheal tube with its tip 5.7 cm above the katja, in satisfactory position. There is thoracic scoliosis Impression: 1. Endotracheal tube in expected position 2. Left lung pneumonia 3. Small left pleural effusion Electronically signed by Pedro Beal 01-24-2025 7:[address] 01/24/25 18:34 Clinical History: Unresponsive Technique: Axial computed tomography images were obtained of the brain without intravenous contrast. Findings: There is diffuse cerebral atrophy, within expected limits for the patient's age. Areas of decreased attenuation are seen within the periventricular white matter, likely representing chronic small vessel ischemic disease. 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 No intracranial hemorrhage is evident. No definite mass lesion is seen on this noncontrast examination. There is no midline shift or other form of herniation. No hydrocephalus is seen. No fracture is identified. There is complete opacification of the left maxillary sinus. There is mucosal thickening in the frontal and ethmoid sinuses. The mastoid air cells appear clear. Impression: 1. Cerebral atrophy, old infarct, and chronic small vessel ischemic disease 2. Sinusitis Electronically signed by Pedro Beal 01-24-2025 7:55 PM Abdomen/Pelvis CT 01/24/25 19:09 CT ABDOMEN and PELVIS with INTRAVENOUS CONTRAST HISTORY: Abdominal pain TECHNIQUE: CT abdomen and pelvis with contrast. IV CONTRAST: 100 mL of OMNIPAQUE 300 ENTERIC CONTRAST: Not Given COMPARISON: CT of the pelvis January 08, 2025 FINDINGS: LIVER: No focal lesion identified. Mild hepatomegaly. GALLBLADDER/BILIARY: Unremarkable gallbladder. No abnormal biliary dilatation. SPLEEN: Unremarkable. PANCREAS: Unremarkable. ADRENALS: Unremarkable. KIDNEYS: Cortical cysts. No stones or hydronephrosis identified. PERITONEUM/RETROPERITONEUM. No lymphadenopathy by size criteria. Infrarenal abdominal aortic aneurysm measuring up to 3.4 cm. GASTROINTESTINAL: No obstruction. Colonic diverticulosis without evidence of diverticulitis. REPRODUCTIVE: Unremarkable URINARY BLADDER: Mild inflammatory changes with wall thickening. ABDOMINAL WALL: Small right larger than left fat-containing hernias. Small fat-containing umbilical hernia. Redemonstrated subcutaneous phlegmonous changes in the buttocks bilaterally, right more than involved than the left. When compared to the pelvic CT examination from January 08, 2025, the visualized inflammatory changes appear improved. No well-formed/drainable fluid collection is identified. BONES: No acute findings. IMPRESSION: Redemonstrated subcutaneous phlegmonous changes in the buttocks bilaterally, right more than involved than the left. When compared to the pelvic CT examination from January 08, 2025, the visualized inflammatory changes appear improved. No well-formed/drainable fluid collection is identified. Mild inflammatory changes of the urinary bladder may be due to cystitis. Electronically signed by Joon Damon 01-24-2025 8:[address] 01/24/25 19:09 CT of the chest with contrast Technique: Postcontrast axial images of the chest. Coronal and sagittal reformatted images made available for review No comparison Findings: Endotracheal tube is present with its tip above the katja. 2.2 cm calcified right thyroid lobe nodule. Irregular thickening of the thyroid isthmus. Although this study is suboptimal for the evaluation of pulmonary emboli there is suggestion of a filling defect within the right upper and lower lobe pulmonary arteries. Similar-appearing though not as conspicuous filling defects are noted within the left main pulmonary artery. Recommend repeat CT scan utilizing pulmonary artery embolus protocol for further evaluation. There is subtle flattening of the interventricular septum which suggests right heart strain. Trace pericardial effusion. Coronary artery calcifications. Left upper lobe infiltrate with left basilar atelectasis. No mediastinal, hilar, or axillary lymphadenopathy. Bone windows demonstrate no focal abnormality. Please see separate dictation for details of the intra-abdominal contents. Impression Although the study is suboptimal for the evaluation of the pulmonary arteries there is suggestion of filling defects within the right upper and lower lobe pulmonary arteries as well as within the left main pulmonary artery. Findings are highly suspicious for pulmonary embolus. Recommend repeat CT angiogram, PE protocol. Evidence of right heart strain. Electronically signed by Amor Marte 01-24-2025 8:09 PM Head CTA 01/24/25 19:09 Clinical history: Unresponsive Technique: Axial computed tomography images were obtained of the brain after the administration of intravenous contrast according to the CT angiogram protocol Findings: No definite stenosis or aneurysm is seen of the anterior, middle, or posterior cerebral artery circulations. The visualized vertebral arteries and the basilar artery appear unremarkable Impression: No definite stenosis or aneurysm of the intracranial arteries Electronically signed by Pedro Beal 01-24-2025 7:57 PM Neck CTA 01/24/25 19:09 Clinical history: Unresponsive Technique: Axial computed tomography images were obtained of the neck after the administration of intravenous contrast according to the CT angiogram protocol Findings: No stenosis is seen of the common carotid arteries bilaterally. The carotid bulbs are patent. There is tortuosity of the mid internal carotid arteries bilaterally. No stenosis of the external carotid arteries is seen The vertebral arteries are patent bilaterally with no significant stenosis seen. The visualized thoracic aorta appears unremarkable There is multilevel degenerative disc disease and osteoarthritis of the cervical spine. There are partially calcified thyroid nodules bilaterally Impression: 1. No definite stenosis of the neck arteries 2. Indeterminate thyroid nodules. A follow-up thyroid ultrasound could be obtained ACT 112: Positive. There are findings on this exam that require communication between the performing entity and the patient following Patient Test Result Information Act ([place] ACT 112) guidelines. Electronically signed by Pedro Beal 01-24-2025 8:00 PM Diagnostic Findings EKG as per my interpretation :Rate 105, A-fib, normal axis, T wave abnormalities inferolateral leads
[2025-01-24 20:59] LABS: Magnesium 1.7 mg/dl (1.7-2.4)
[2025-01-24 21:00] LABS: Amphetamines+Metham, Urine Neg (Neg); MDMA (Ecstacy), Urine Neg (Neg); Marijuana, Urine Neg (Neg)
[2025-01-24] MEDS: METOPROLOL TARTRATE 1 MG/ML VIAL IV STA (21:08)
--- NOTE | 2025-01-24 21:08 | Critical Care Consultation ---
Date of Consultation January 24, 2025 Assessment & Plan (1) Acute encephalopathy: (2) Bilateral pulmonary embolism: (3) Pericardial effusion: (4) Venous malformation: (5) Atrial fibrillation with rapid ventricular response: (6) DM (diabetes mellitus): (7) Aspiration into airway: (8) GERD (gastroesophageal reflux disease): Plan Reason Critically Ill: 74 YOM presents to the ER unresponsive and intubated on arrival, found to have bilateral pulmonary embolisms on CT and CTA of chest. Pending clinical course of anticoagulation and bleeding risk from sacral venous malformation consideration for transfer may be warranted. Neuro - Encephalopathy, Hx- of SAH in 2013 [facility] ICU: [facility] - Unknown down time and unknown preface to his current situation which raises concern for anoxic injury- CT head currently with preserved thomas/white matter differentiation- continue supportive care and prognostication at 72 hours, consider advanced imaging with MRI if no change within next 24-48 hours. - Maintain euglycemia, normal oxygenation, normal acid base, normal temperature - Currently without sedation - will provide fentanyl PRN - he is overbreathing the ventilator - UDS - negative - Tylenol and ASA negative, ETOH negative - CTA of head without aneurysm and no acute bleed noted or LVO/stenosis Cardiac - Afib with RVR, Pulmonary embolism bilateral without shock, pericardial effusion - Afib with RVR - previously on metoprolol and sotalol as well as cardioversion in 2018- currently maintained on Metoprolol succinate 100 in am, 12.5 in PM- hold for now until hemodynamics are proven stable- rate at this time may be physiologic in light of PE. - PE bilateral- currently without evidence of shock and hemodynamics favorable- PESI - class V, shock index- 0.9 , possibly cause of his collapse is likely- Hemodynamics favorable and without ultrasound evidence of RV failure or other organ dysfunction. Pending clinical course for further evaluation or need of possible thrombectomy vs. standard treatment. - At this time risk of not anticoagulating is higher than bleeding risk as these are noted to be venous in nature and have responded to direct pressure. - Lactate negative - HsCTNI- 30 - BNP 227 - POCUS- RV without obvious D sign or dilation, small pericardial effusion, IVC collapsing and hyperdynamic - Heparin infusion - follow bleeding from gluteal wound Respiratory - Required urgent intubation secondary to unresponsiveness and inability to protect airway - Follow respiratory mechanics with PE and hemodynamics- currently PIP 28- adjust rate/VT and PEEP for minimal over distention - ABG- 7.//- - R- 18, VT 480, PEEP 10- will decrease VT, PEEP, and increase RR at this time and see how he is tolerates oxygenation - he did get hypoxic with decreasing PEEP to 8- so we will remain at 10cm H20- his PIPS are decreased to 17 - With his hypoxia and amount of support will hold on bronchoscopy at this time GI - Hx GERD - PPI IV BID RENAL/LYTES - no acute needs - ICU electrolyte protocol - No acute needs - Miranda to gravity ENDO - DMII - ICU hyperglycemic protocol HEME - Anemia - type and screen transfuse for HGB level <7, active bleeding. ID - aspiration into airways, sinusitis - no clear source of other infectious cause at this time- has currently received Rocephin and Unasyn for abx therapy- follow fever curve and cultures if worsening add pseudomonal coverage - follow fever curve and cultures LINES/IV ACCESS - PIV x3, miranda, ETT, OGT Continue use of these lines DVT PROPHYLAXIS - SCDS, heparin infusion DISPO: ICU while intubated and sedated- may need further evaluation pending bleeding risk with anticoagulation I have personally spent 48 minutes of critical care time in the direct management of this patient. This is a life/limb threatening event. This includes time spent evaluating patient, direct bedside care, chart review, placing orders, interpretation of diagnostic studies, discussion with consultants, patient, and family members, as well as other required patient management activities. This time is exclusive of all separately billable procedures, and teaching time and separate from and in addition to any other critical care service time. Thank you for allowing us to participate in the care of this patient. Please refer to my attending physician's documentation for any further recommendations. 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 Patient presented to the ER via EMS secondary to welfare check. He was found unresponsive, hypoglycemic, and ineffective respiratory pattern. He is with a GCS 6T with withdrawal to bilateral upper ext only at this time. Patient was subsequently intubated in the ER with aspiration on intubation, he had imaging performed with CTA of the head and neck, non con head ct, CXR, CT non con chest, and CT abd/pelvis with IV contrast. He was noted on CT chest to have filling defects in right upper and lower lobe pulmonary arteries and left main pulmonary artery, he is awaiting formal CTA of the chest. He has been initiated on heparin infusion. Toxicology screen is pending, blood cultures are pending. He has been given Rocephin. Patient will be admitted to the ICU for continued pulmonary and hemodynamic support. Await imaging on CTA of chest to eval extensiveness of clots, lactate, BNP, and Troponin are pending. He is currently with adequate HR and adequate BP. Will need to closely monitor his anticoagulation in regards to his venous malformations of his buttocks, which he appears to have had multiple admissions for bleeding with, and most recent surgical evaluation in January 13 recommended vascular consultation at tertiary center. Son arrived to ICU at 2219 and was able to provide the following information- He saw his Dad on Thursday and he was reportedly doing ok with no complaints or appearing ill. His Mom (Renan's ) is admitted to the hospital currently in room 317- and she talks to him every day, however she was unable to get a hold of him today. She reported this to her Son and he called the police to perform a check on his dad and that is where they found him as above. CODE: FULL Allergies Allergy/AdvReac Type Severity Reaction Status Date / Time simvastatin Allergy Intermediate myalgias Verified 01/07/25 19:41 sildenafil Allergy Unknown severe Verified 01/07/25 19:41 headache amiodarone Allergy Rash Verified 01/07/25 19:41 Home Medications Medication Instructions Recorded Confirmed Type clonidine HCl 0.3 mg tablet 0.3 mg PO BID 03/18/18 01/24/25 History terazosin 2 mg capsule 2 mg PO HS 04/28/18 01/24/25 History empagliflozin 10 mg tablet 10 mg PO QAM 12/02/23 01/24/25 History (Jardiance) insulin glargine 100 unit/mL (3 75 unit subcut HS 12/02/23 01/24/25 History mL) subcutaneous pen (Lantus Solostar U-100 Insulin) liraglutide 0.6 mg/0.1 mL (18 mg/3 1.2 mg subcut QAM 12/02/23 01/24/25 History mL) subcutaneous pen injector (Victoza 3-Jak) lisinopril 20 mg tablet 20 mg PO PM 12/02/23 01/24/25 History metoprolol succinate 100 mg 100 mg PO QAM 12/02/23 01/24/25 History tablet,extended release 24 hr metoprolol succinate 25 mg 12.5 mg PO QPM 12/02/23 01/24/25 History tablet,extended release 24 hr metoprolol succinate 50 mg 50 mg PO HS 12/02/23 01/24/25 History tablet,extended release 24 hr spironolactone 25 mg tablet 12.5 mg PO QAM 12/02/23 01/24/25 History torsemide 20 mg tablet 40 mg PO BID 12/02/23 01/24/25 History zolpidem 10 mg tablet 10 mg PO HS PRN Sleep 12/25/23 01/24/25 History allopurinol 300 mg tablet 300 mg PO QAM 01/07/25 01/24/25 History atorvastatin 40 mg tablet 40 mg PO QAM 01/07/25 01/24/25 History levothyroxine 75 mcg tablet 75 mcg PO DAILYBB 01/07/25 01/24/25 History metformin 500 mg tablet 500 mg PO BIDM 01/07/25 01/24/25 History gabapentin 100 mg capsule 100 mg PO DAILY 01/24/25 01/24/25 History pantoprazole 40 mg tablet,delayed 40 mg PO BID 01/24/25 01/24/25 History release Patient History Medical History Atrial flutter, paroxysmal Atrial fibrillation with rapid ventricular response Atrial fibrillation AA (alcohol abuse) "Last drink 1990 " Gout Cerebral aneurysm "SAH Non-aneurysmal SAH ([place] 3, H&H, 1, [facility] 1). 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 Beliefs That Will Affect Care: None marital status: Current Living Situation: Spouse Other Information That Helps Us Care for You: No Feels Safe at Home: Yes Diet: regular caffeine: Yes during the past year weight has: decreased > 10 lbs Dental Care, Regularly: No Physical Activity Frequency: Does not Exercise Assistive Devices: Glasses Review of Systems Review of Systems: unable to obtain secondary to patient being intubated Physical Exam Physical Exam: PHYSICAL EXAM: General: intubated and with no spontaneous movements without sedation currently Neuro: Pupils 3 sluggish, no spontaneous movements, withdrawals to pain in upper extremities, Babinski normal, GCS 6T, Chest: equal rise and fall of the chest, no accessory muscle use, no heaves or thrills, Clear to auscultation, on room air, Cardiac: irregular rate and rhythm- afib RVR, systolic murmur grade II, peripheral pulses 2+, venous ulcerations, pericardial rub GI: NABS x 4 quadrants, soft, : miranda to gravity draining shannan urine Skin: thick scaly skin to lower extremities and feet, excoriations to bilateral groin folds and under breast tissue, bruising to extremities. Results & Data Results & Data Vital Signs (Past 12 Hours) Vital Signs Temp Pulse Pulse Resp BP BP Pulse Ox 01/24/25 20:03 39.0 C H 137 H 18 97 01/24/25 20:00 156/98 H 01/24/25 19:58 39.0 C H 01/24/25 19:57 39.0 C H 137 H 18 97 01/24/25 19:54 38.9 C H 137 H 18 97 01/24/25 19:33 130 H 14 99 01/24/25 19:32 170/80 H 01/24/25 19:06 136 H 72 L 01/24/25 19:00 134 H 184/97 H 67 L 01/24/25 18:55 121 H 01/24/25 18:46 93 H 01/24/25 18:31 100 H 28 H 144/91 H 98 01/24/25 18:31 98 01/24/25 18:31 100 H 28 H 144/91 H 98 O2 Del Method O2 Flow Rate 01/24/25 20:03 Mechanical Vent 01/24/25 20:00 01/24/25 19:58 01/24/25 19:57 Mechanical Vent 01/24/25 19:54 Mechanical Vent 01/24/25 19:33 Mechanical Vent 01/24/25 19:32 01/24/25 19:06 Ambu-Bag 01/24/25 19:00 Ambu-Bag 01/24/25 18:55 01/24/25 18:46 01/24/25 18:31 Non-rebreather 15 01/24/25 18:31 Non-rebreather 15 01/24/25 18:31 Non-rebreather 15 Laboratory Results Abnormal lab results 01/24/25 01/24/25 01/24/25 Range/Units 18:30 18:36 18:56 WBC 11.23 H (4.8-10.8) K/ul RBC 3.92 L (4.70-6.10) M/uL Hgb 10.6 L (14.0-18.0) g/dl POC Hgb 10.9 L (14.0-18.0) g/dl Hct 32.9 L (42.0-52.0) % POC Hct 32 L (42-52) % RDW Std Deviation 47.0 H (36.4-46.3) fL RDW Coeff of Gabriela 15.5 H (11.5-14.5) % MPV 9.1 L (9.4-12.4) fL Neut # (Auto) 9.51 H (1.40-6.50) K/uL Lymph # (Auto) 0.79 L (1.20-3.40) K/uL [place] # (Auto) 0.88 H (0.11-0.59) K/uL VBG pH (7.36-7.41) VBG pCO2 (38-50) mmHg POC Anion Gap 14.0 L (16-25) mmol/L POC Glucose 132 H (70-99) mg/dl Direct Bilirubin (0-0.2) mg/dl Troponin I High Sens 27.5 H (0-20) pg/ml B-Natriuretic Peptide (0-100) pg/ml Albumin 3.0 L (3.4-5.0) gm/dl Lipase 4 L (11-82) U/L Ur Specific [place] (1.000-1.030) Urine Protein (Negative) Urine Glucose (UA) (Negative) Urine Ketones (Negative) Urine Blood (Negative) U Hyaline Cast (Auto) (0-2) /lpf U Epithel Cells (Auto) (0-2) /hpf Granular Casts (None Prsent) /lpf Salicylates < 3.0 L (3.0-30) mg/dl Acetaminophen < 3 L (10-30) ug/ml 01/24/25 01/24/25 01/24/25 Range/Units 19:39 19:40 20:32 WBC (4.8-10.8) K/ul RBC (4.70-6.10) M/uL Hgb (14.0-18.0) g/dl POC Hgb (14.0-18.0) g/dl Hct (42.0-52.0) % POC Hct (42-52) % RDW Std Deviation (36.4-46.3) fL RDW Coeff of Gabriela (11.5-14.5) % MPV (9.4-12.4) fL Neut # (Auto) (1.40-6.50) K/uL Lymph # (Auto) (1.20-3.40) K/uL [place] # (Auto) (0.11-0.59) K/uL VBG pH 7.31 L (7.36-7.41) VBG pCO2 55 H (38-50) mmHg POC Anion Gap (16-25) mmol/L POC Glucose (70-99) mg/dl Direct Bilirubin 0.3 H (0-0.2) mg/dl Troponin I High Sens 30.0 H (0-20) pg/ml B-Natriuretic Peptide 227 H (0-100) pg/ml Albumin (3.4-5.0) gm/dl Lipase (11-82) U/L Ur Specific [place] > 1.045 H (1.000-1.030) Urine Protein 2+ H (Negative) Urine Glucose (UA) 3+ H (Negative) Urine Ketones Trace H (Negative) Urine Blood 1+ H (Negative) U Hyaline Cast (Auto) 6-10 H (0-2) /lpf U Epithel Cells (Auto) 3-5 H (0-2) /hpf Granular Casts Present A (None Prsent) /lpf Salicylates (3.0-30) mg/dl Acetaminophen (10-30) ug/ml ECG Additional Comments: Atrial fibrillationwith rapid ventricular response ST &T wave abnormality, consider inferolateral ischemia Abnormal ECG When compared with ECG [id number] 19:39, ST now depressed inLateral leads Inverted T waves have replaced nonspecific T wave abnormality inLateral leads Coding Level of Care Code 61480 CRITICAL CARE 1ST 30-74M Diagnoses Acute encephalopathy G93.40 Bilateral pulmonary embolism I26.99 Pericardial effusion I31.39 Venous malformation Q27.9 Atrial fibrillation with rapid ventricular response I48.91 DM (diabetes mellitus) E11.9 Aspiration into airway T17.908A GERD (gastroesophageal reflux disease) K21.9
[2025-01-24] MEDS: cefTRIAXone SODIUM 2,000 MG/50 ML BAG IV STA (21:10)
--- NOTE | 2025-01-24 21:10 | Emergency Department Note ---
Impression & Plan Episode of unresponsiveness, Aspiration into airway, Pulmonary embolism ED Provider Note NAME: DARLENE DUNNE AGE: 74 SEX: M : 1950 ARRIVES VIA: Ambulance INFORMANT: Patient, ED PROVIDER(S): Dora Guallpa MD CHIEF COMPLAINT: Unresponsive HPI: This is a 74-year-old male presenting for unresponsive episode. Patient was found after a welfare check. Reportedly not talk to his family today so family is concerned and called 911. Upon arrival of EMS, patient was found unresponsive with a glucose of 32. Patient given 250 mg of D10 with increase in blood sugar to 160. Then downtrended to 89 by time he arrived to the ER. Patient still unresponsive in the ER. Does not respond to any stimuli. Patient is a known diabetic with a history of a buttocks wound previously. ROS: Unable to obtain PHYSICAL EXAMINATION: General: Unresponsive, GCS 3 Head: Normocephalic, Eyes: Normal inspection, minimally reactive, 3 mm Ear, nose, throat: Normal external exam Neck: Normal range of motion Respiratory: lungs clear to auscultation bilaterally Cardiovascular: Regular rate/rhythm, no murmur Back: Large upper gluteal discolored/swelling GI: soft, nontender, no guarding or rebound Extremities: Dry, chronic venous skin changes Neuro: GCS 3, no spontaneous response Skin: Warm, dry, and intact MEDICAL DECISION MAKING: This is a 74-year-old male presents for unresponsive episode. Patient unresponsive on arrival, after multiple doses of glucose, no significant improvement despite increasing glucose. At this time he is significant airway concern his GCS is 3. He is gasping respirations, gurgling as well. Concern for possible aspiration. - Please see procedure after note for intubation. - RSI performed with etomidate and rocuronium. After giving medications, patient had an episode of emesis. Patient suctioned. Able to pass 2. Patient oxygen saturation downtrended to about 60% transiently with immediate return back up to 100%. -Patient had episode of desaturation after intubation. He desatted to the 60s persistently for a few minutes. Used glide scope to check positioning, ET tube is still in place. Bilateral lung sounds. Patient take off ventilator and manually bagged up to 100% again. -Chest x-ray reveals left-sided pneumonia, likely aspiration. ET tube in good appropriate position -I accompanied the patient to radiology for CT head, CTA head neck, CT chest abdomen pelvis -Blood work revealed a WBC of 11.23. Otherwise anemia 10.6, stable. VBG is 7.31/55. Fanny is within normal limits. Troponin minimally elevated at 27. UDS negative. Acetaminophen, salicylates negative EtOH negative. -CT of the head, neck reveals no acute process. CT abdomen/pelvis reveals this mass that appears to be improved. CT chest reveals possible PE. Did recommend repeat scan with CT angiogram. - Care discussed with ICU Daryl CAMPOS, inpatient hospitalist, Dr. Roach for admission Endotracheal Intubation Indication protection The patient was on 100% oxygen via NRB prior to the procedure. Suction, airway equipment, RSI drugs, respiratory equipment, and appropriate personnel were prepared prior to the initiation of the procedure. A time out was taken. Induction was performed with etomidate and rocuronium. After observing the clinical benefit of the medications, the airway was easily visualized utilizing a video laryngoscopy. A 8.0 size ETT tube was placed atraumatically to 24 cm using standard technique. The cuff inflated without signs of malfunction. There were bilateral breath sounds, positive colormetric change, no gastric sounds, a good capnography waveform, and post procedure pulse oximetry was 97%. Post intubation sedation and paralysis was administered using propofol. There were no complications. Differential diagnosis: Anoxic brain injury, hypoglycemia, pneumonia, aspiration, drug overdose, stroke, sepsis Independent History obtained from: EMS Diagnostics interpreted by me: ECG: ECG independently interpreted by me with atrial fibrillation with RVR, rate of 104, T wave inversions in lateral leads, normal QRS, normal QTc, no ST segment elevations consistent with STEMI criteria Cardiac Monitoring: An order was placed for continuous cardiac monitoring. The monitor shows a rate of 135 with an atrial fibrillation rhythm. Critical Care Note: I have personally spent 64 minutes of critical care time in the direct management of this patient. This includes bedside care, interpretation of diagnostic studies, and testing, discussion with consultants, patient, and family members, and other required patient management activities. This 64 minutes is in excess of all separately billable procedures. Past Med/Surg History Problem List (Updated 01/26/25 @ 01:46 by Dora Guallpa MD) Pulmonary embolism (Acute) Aspiration into airway (Acute) Episode of unresponsiveness (Acute) Acute hypoxemic respiratory failure Aspiration into airway Pericardial effusion Bilateral pulmonary embolism Acute encephalopathy Venous malformation Acute hypotension (Acute) Bleeding (Acute) Hematoma (Acute) Atrial fibrillation with rapid ventricular response (Acute) Skin tear of right hand without complication (Acute) Surgical wound, non healing (Acute) Transient acute renal failure Postprocedural hemorrhage and hematoma of skin and subcutaneous tissue following dermatologic procedure Hyperlipidemia HTN (hypertension) DM (diabetes mellitus) Cellulitis of gluteal region Bleeding from wound Elevated lactic acid level (Acute) Syncope and collapse (Acute) GERD (gastroesophageal reflux disease) (Chronic) Paroxysmal a-fib (Chronic) Medical History Atrial flutter, paroxysmal Atrial fibrillation with rapid ventricular response Atrial fibrillation AA (alcohol abuse) "Last drink 1990 " Gout Cerebral aneurysm "SAH Non-aneurysmal SAH ([place] 3, H&H, 1, WFNS 1). No f/u needed 2012" On 09/17/15 12:09 Jennifer Falcon wrote "SAH" BPH (benign prostatic hyperplasia) Morbid obesity Surgical History H/O removal of cyst "knee-bakers cyst" History of repair of anterior cruciate ligament of right knee History of inguinal hernia repair Family History Other Family history non-contributory Social History Smoking Status: Unknown if ever smoked Second Hand Exposure: No; Do You Dip or Chew Tobacco: No; Hx Alcohol Use: No Hx Substance Use: No Preferred Language: Citizen Of [place] Communication Ability: Impaired Psychiatric Np Required: No Beliefs That Will Affect Care: None marital status: Current Living Situation: Spouse Other Information That Helps Us Care for You: No Feels Safe at Home: Yes Diet: regular caffeine: Yes during the past year weight has: decreased > 10 lbs Dental Care, Regularly: No Physical Activity Frequency: Does not Exercise Assistive Devices: None Allergies Allergies Allergy/AdvReac Type Severity Reaction Status Date / Time simvastatin Allergy Intermediate myalgias Verified 01/07/25 19:41 sildenafil Allergy Unknown severe Verified 01/07/25 19:41 headache amiodarone Allergy Rash Verified 01/07/25 19:41 Home Meds Home Medications Medication Instructions Recorded Confirmed clonidine HCl 0.3 mg tablet 0.3 mg PO BID 03/18/18 01/24/25 terazosin 2 mg capsule 2 mg PO HS 04/28/18 01/24/25 empagliflozin 10 mg tablet 10 mg PO QA 12/02/23 01/24/25 (Jardiance) insulin glargine 100 unit/mL (3 75 unit subcut HS 12/02/23 01/24/25 mL) subcutaneous pen (Lantus Solostar U-100 Insulin) liraglutide 0.6 mg/0.1 mL (18 mg/3 1.2 mg subcut [facility] 12/02/23 01/24/25 mL) subcutaneous pen injector ([employer] 3-Jak) lisinopril 20 mg tablet 20 mg PO PM 12/02/23 01/24/25 metoprolol succinate 100 mg 100 mg PO [facility] 12/02/23 01/24/25 tablet,extended release 24 hr metoprolol succinate 25 mg 12.5 mg PO QPM 12/02/23 01/24/25 tablet,extended release 24 hr metoprolol succinate 50 mg 50 mg PO HS 12/02/23 01/24/25 tablet,extended release 24 hr spironolactone 25 mg tablet 12.5 mg PO [facility] 12/02/23 01/24/25 torsemide 20 mg tablet 40 mg PO BID 12/02/23 01/24/25 zolpidem 10 mg tablet 10 mg PO HS PRN Sleep 12/25/23 01/24/25 allopurinol 300 mg tablet 300 mg PO [facility] 01/07/25 01/24/25 atorvastatin 40 mg tablet 40 mg PO [facility] 01/07/25 01/24/25 levothyroxine 75 mcg tablet 75 mcg PO DAILYBB 01/07/25 01/24/25 metformin 500 mg tablet 500 mg PO BIDM 01/07/25 01/24/25 gabapentin 100 mg capsule 100 mg PO DAILY 01/24/25 01/24/25 pantoprazole 40 mg tablet,delayed 40 mg PO BID 01/24/25 01/24/25 release Results & Data (ED) Vital Signs Vital Signs - 24 hr 01/24/25 18:31 01/24/25 18:31 01/24/25 18:31 Temperature Temperature Source Pulse Rate 100 H Pulse Rate [Apical] 100 H Pulse Rate from SpO2 Sensor Respiratory Rate 28 H 28 H Blood Pressure 144/91 H Blood Pressure [Right Arm] 144/91 H Blood Pressure Mean 108 Blood Pressure Mean [Right Arm] 108 Pulse Oximetry 98 98 98 Oxygen Delivery Method Non-rebreather Non-rebreather Non-rebreather Oxygen Flow Rate 15 15 15 Sepsis New/Unexplained Change in Mental Status Yes Sepsis Action Taken by Nursing Physician Notified End-Tidal CO2 01/24/25 18:46 01/24/25 18:55 01/24/25 19:00 Temperature Temperature Source Pulse Rate 93 H 121 H 134 H Pulse Rate [Apical] Pulse Rate from SpO2 Sensor 67 Respiratory Rate Blood Pressure 184/97 H Blood Pressure [Right Arm] Blood Pressure Mean 126 Blood Pressure Mean [Right Arm] Pulse Oximetry 67 L Oxygen Delivery Method Ambu-Bag Oxygen Flow Rate Sepsis New/Unexplained Change in Mental Status Sepsis Action Taken by Nursing End-Tidal CO2 01/24/25 19:06 01/24/25 19:32 01/24/25 19:33 Temperature Temperature Source Pulse Rate 136 H 130 H Pulse Rate [Apical] Pulse Rate from SpO2 Sensor 126 H 66 Respiratory Rate 14 Blood Pressure 170/80 H Blood Pressure [Right Arm] Blood Pressure Mean 109 Blood Pressure Mean [Right Arm] Pulse Oximetry 72 L 99 Oxygen Delivery Method Ambu-Bag Mechanical Vent Oxygen Flow Rate Sepsis New/Unexplained Change in Mental Status Sepsis Action Taken by Nursing End-Tidal CO2 35 01/24/25 19:54 01/24/25 19:57 01/24/25 19:58 Temperature 38.9 C H 39.0 C H 39.0 C H Temperature Source Temporal Artery Scan Pulse Rate 137 H 137 H Pulse Rate [Apical] Pulse Rate from SpO2 Sensor 137 H 137 H Respiratory Rate 18 18 Blood Pressure Blood Pressure [Right Arm] Blood Pressure Mean Blood Pressure Mean [Right Arm] Pulse Oximetry 97 97 Oxygen Delivery Method Mechanical Vent Mechanical Vent Oxygen Flow Rate Sepsis New/Unexplained Change in Mental Status Sepsis Action Taken by Nursing End-Tidal CO2 41 41 01/24/25 20:00 01/24/25 20:03 Temperature 39.0 C H Temperature Source Pulse Rate 137 H Pulse Rate [Apical] Pulse Rate from SpO2 Sensor 138 H Respiratory Rate 18 Blood Pressure 156/98 H Blood Pressure [Right Arm] Blood Pressure Mean 107 Blood Pressure Mean [Right Arm] Pulse Oximetry 97 Oxygen Delivery Method Mechanical Vent Oxygen Flow Rate Sepsis New/Unexplained Change in Mental Status Sepsis Action Taken by Nursing End-Tidal CO2 42 Laboratory Data 01/25/25 04:38 01/25/25 04:38 Lab Results 01/24/25 01/24/25 01/24/25 Range/Units 18:27 18:30 18:36 WBC 11.23 H (4.8-10.8) K/ul RBC 3.92 L (4.70-6.10) M/uL Hgb 10.6 L (14.0-18.0) g/dl POC Hgb 10.9 L (14.0-18.0) g/dl Hct 32.9 L (42.0-52.0) % POC Hct 32 L (42-52) % MCV 83.9 (80.0-100.0) fL MCH 27.0 (25.0-34.0) pg MCHC 32.2 (32.0-36.0) g/dL RDW Std Deviation 47.0 H (36.4-46.3) fL RDW Coeff of Gabriela 15.5 H (11.5-14.5) % Plt Count 200 (130-400) K/uL MPV 9.1 L (9.4-12.4) fL Immature Gran % (Auto) 0.4 % Neut % (Auto) 84.7 % Lymph % (Auto) 7.0 % Otero % (Auto) 7.8 % Eos % (Auto) 0.0 % Baso % (Auto) 0.1 % Neut # (Auto) 9.51 H (1.40-6.50) K/uL Lymph # (Auto) 0.79 L (1.20-3.40) K/uL [place] # (Auto) 0.88 H (0.11-0.59) K/uL Eos # (Auto) 0.00 (0.00-0.50) K/uL Baso # (Auto) 0.01 (0.00-0.20) K/uL Immature Gran # (Auto) 0.04 (0.01-0.20) K/uL POC pH (7.35-7.45) POC pCO2 (35-46) mmHg POC pO2 (80-95) mmHg POC HCO3 (19-24) moncho/L POC Base Excess (-9-1.8) moncho/L POC ABG O2 Sat (90-95) % VBG pH (7.36-7.41) VBG pCO2 (38-50) mmHg VBG pO2 mmHg VBG HCO3 mmol/L VBG O2 Saturation % VBG Base Excess mEq/L POC Sodium 139 (135-144) mmol/L Sodium 138 (136-145) mmol/L POC Potassium 3.6 (3.3-5.0) mmol/L Potassium TNP POC Chloride 104 (101-112) mmol/L Chloride 105 (98-107) mmol/L Carbon Dioxide 26 (21-32) mmol/L POC Total CO2 25 (24-31) mmol/L Anion Gap 7 (3-11) POC Anion Gap 14.0 L (16-25) mmol/L POC BUN 9 (7-18) mg/dl BUN 10 (6-23) mg/dl Creatinine 0.98 (0.6-1.4) mg/dl POC Creatinine 1.1 (0.6-1.3) mg/dl Est Cr Clr Drug Dosing Not Reportable eGFR 79.92 BUN/Creatinine Ratio 10.2 (10-20) Glucose 82 (70-99(Fasting)) mg/dl POC Glucose 84 (70-99) mg/dl POC Glucose (other) 82 (70-99) mg/dl Lactate (0.4-2.0) mmol/L Calcium 9.0 (8.6-10.3) mg/dl POC Ioniz Calcium Nancy 1.16 (1.12-1.32) mmol/l Magnesium (1.7-2.4) mg/dl Total Bilirubin 0.9 (0.2-1.0) mg/dl Direct Bilirubin TNP AST TNP ALT 11 (7-52) U/L Alkaline Phosphatase 77 (34-104) U/L Troponin I High Sens 27.5 H (0-20) pg/ml B-Natriuretic Peptide (0-100) pg/ml Total Protein 6.3 (6.0-8.3) gm/dl Albumin 3.0 L (3.4-5.0) gm/dl Lipase 4 L (11-82) U/L Urine Color Urine Appearance (Clear) Urine pH (4.5-7.5) Ur Specific [place] (1.000-1.030) Urine Protein (Negative) Urine Glucose (UA) (Negative) Urine Ketones (Negative) Urine Blood (Negative) Urine Nitrite (Negative) Urine Bilirubin (Negative) Urine Urobilinogen (Negative) Ur Leukocyte Esterase (Negative) Urine WBC (Auto) (0-5) /hpf Urine RBC (Auto) (0-2) /hpf U Hyaline Cast (Auto) (0-2) /lpf U Epithel Cells (Auto) (0-2) /hpf Urine Bacteria (Auto) (None Seen) Granular Casts (None Prsent) /lpf Urine Comment Salicylates < 3.0 L (3.0-30) mg/dl Urine Opiates Screen (Neg) Ur Methadone, Qual (Neg) Urine Fentanyl Screen (Neg) Acetaminophen < 3 L (10-30) ug/ml Urine Barbiturates (Neg) Ur Phencyclidine (PCP) (Neg) U Amphetamin/Meth Scrn (Neg) MDMA (Ecstasy) Screen (Neg) U Benzodiazepines Scrn (Neg) Ur Cocaine Metabolite (Neg) U Marijuana (THC) Screen (Neg) Ethyl Alcohol mg/dL (<10.0) mg/dl Blood Type Antibody Screen 01/24/25 01/24/25 01/24/25 Range/Units 18:37 18:56 19:39 WBC (4.8-10.8) K/ul RBC (4.70-6.10) M/uL Hgb (14.0-18.0) g/dl POC Hgb 10.5 L (14.0-18.0) g/dl Hct (42.0-52.0) % POC Hct 31 L (42-52) % MCV (80.0-100.0) fL MCH (25.0-34.0) pg MCHC (32.0-36.0) g/dL RDW Std Deviation (36.4-46.3) fL RDW Coeff of Gabriela (11.5-14.5) % Plt Count (130-400) K/uL MPV (9.4-12.4) fL Immature Gran % (Auto) % Neut % (Auto) % Lymph % (Auto) % Otero % (Auto) % Eos % (Auto) % Baso % (Auto) % Neut # (Auto) (1.40-6.50) K/uL Lymph # (Auto) (1.20-3.40) K/uL [place] # (Auto) (0.11-0.59) K/uL Eos # (Auto) (0.00-0.50) K/uL Baso # (Auto) (0.00-0.20) K/uL Immature Gran # (Auto) (0.01-0.20) K/uL POC pH 7.49 H (7.35-7.45) POC pCO2 36 (35-46) mmHg POC pO2 37 L (80-95) mmHg POC HCO3 27 H (19-24) moncho/L POC Base Excess 4.0 H (-9-1.8) moncho/L POC ABG O2 Sat 76.0 L (90-95) % VBG pH (7.36-7.41) VBG pCO2 (38-50) mmHg VBG pO2 mmHg VBG HCO3 mmol/L VBG O2 Saturation % VBG Base Excess mEq/L POC Sodium 138 (135-144) mmol/L Sodium (136-145) mmol/L POC Potassium 3.5 (3.3-5.0) mmol/L Potassium POC Chloride (101-112) mmol/L Chloride (98-107) mmol/L Carbon Dioxide (21-32) mmol/L POC Total CO2 28 (24-31) mmol/L Anion Gap (3-11) POC Anion Gap (16-25) mmol/L POC BUN (7-18) mg/dl BUN (6-23) mg/dl Creatinine (0.6-1.4) mg/dl POC Creatinine (0.6-1.3) mg/dl Est Cr Clr Drug Dosing eGFR BUN/Creatinine Ratio (10-20) Glucose (70-99(Fasting)) mg/dl POC Glucose 132 H (70-99) mg/dl POC Glucose (other) (70-99) mg/dl Lactate (0.4-2.0) mmol/L Calcium (8.6-10.3) mg/dl POC Ioniz Calcium Nancy (1.12-1.32) mmol/l Magnesium (1.7-2.4) mg/dl Total Bilirubin (0.2-1.0) mg/dl Direct Bilirubin AST ALT (7-52) U/L Alkaline Phosphatase (34-104) U/L Troponin I High Sens (0-20) pg/ml B-Natriuretic Peptide (0-100) pg/ml Total Protein (6.0-8.3) gm/dl Albumin (3.4-5.0) gm/dl Lipase (11-82) U/L Urine Color Yellow Urine Appearance Clear (Clear) Urine pH 5.5 (4.5-7.5) Ur Specific [place] > 1.045 H (1.000-1.030) Urine Protein 2+ H (Negative) Urine Glucose (UA) 3+ H (Negative) Urine Ketones Trace H (Negative) Urine Blood 1+ H (Negative) Urine Nitrite Negative (Negative) Urine Bilirubin Negative (Negative) Urine Urobilinogen Negative (Negative) Ur Leukocyte Esterase Negative (Negative) Urine WBC (Auto) 0-5 (0-5) /hpf Urine RBC (Auto) 0-2 (0-2) /hpf U Hyaline Cast (Auto) 6-10 H (0-2) /lpf U Epithel Cells (Auto) 3-5 H (0-2) /hpf Urine Bacteria (Auto) None Seen (None Seen) Granular Casts Present A (None Prsent) /lpf Urine Comment Salicylates (3.0-30) mg/dl Urine Opiates Screen Neg (Neg) Ur Methadone, Qual Neg (Neg) Urine Fentanyl Screen Neg (Neg) Acetaminophen (10-30) ug/ml Urine Barbiturates Neg (Neg) Ur Phencyclidine (PCP) Neg (Neg) U Amphetamin/Meth Scrn Neg (Neg) MDMA (Ecstasy) Screen Neg (Neg) U Benzodiazepines Scrn Neg (Neg) Ur Cocaine Metabolite Neg (Neg) U Marijuana (THC) Screen Neg (Neg) Ethyl Alcohol mg/dL (<10.0) mg/dl Blood Type Antibody Screen 01/24/25 01/24/25 01/24/25 Range/Units 19:40 20:32 20:41 WBC (4.8-10.8) K/ul RBC (4.70-6.10) M/uL Hgb (14.0-18.0) g/dl POC Hgb (14.0-18.0) g/dl Hct (42.0-52.0) % POC Hct (42-52) % MCV (80.0-100.0) fL MCH (25.0-34.0) pg MCHC (32.0-36.0) g/dL RDW Std Deviation (36.4-46.3) fL RDW Coeff of Gabriela (11.5-14.5) % Plt Count (130-400) K/uL MPV (9.4-12.4) fL Immature Gran % (Auto) % Neut % (Auto) % Lymph % (Auto) % Oter[place] % (Auto) % Eos % (Auto) % Baso % (Auto) % Neut # (Auto) (1.40-6.50) K/uL Lymph # (Auto) (1.20-3.40) K/uL [place] # (Auto) (0.11-0.59) K/uL Eos # (Auto) (0.00-0.50) K/uL Baso # (Auto) (0.00-0.20) K/uL Immature Gran # (Auto) (0.01-0.20) K/uL POC pH (7.35-7.45) POC pCO2 (35-46) mmHg POC pO2 (80-95) mmHg POC HCO3 (19-24) moncho/L POC Base Excess (-9-1.8) moncho/L POC ABG O2 Sat (90-95) % VBG pH 7.31 L (7.36-7.41) VBG pCO2 55 H (38-50) mmHg VBG pO2 45 mmHg VBG HCO3 28 mmol/L VBG O2 Saturation 68.8 % VBG Base Excess 0.4 mEq/L POC Sodium (135-144) mmol/L Sodium (136-145) mmol/L POC Potassium (3.3-5.0) mmol/L Potassium 3.5 POC Chloride (101-112) mmol/L Chloride (98-107) mmol/L Carbon Dioxide (21-32) mmol/L POC Total CO2 (24-31) mmol/L Anion Gap (3-11) POC Anion Gap (16-25) mmol/L POC BUN (7-18) mg/dl BUN (6-23) mg/dl Creatinine (0.6-1.4) mg/dl POC Creatinine (0.6-1.3) mg/dl Est Cr Clr Drug Dosing eGFR BUN/Creatinine Ratio (10-20) Glucose (70-99(Fasting)) mg/dl POC Glucose (70-99) mg/dl POC Glucose (other) (70-99) mg/dl Lactate 1.1 (0.4-2.0) mmol/L Calcium (8.6-10.3) mg/dl POC Ioniz Calcium Nancy (1.12-1.32) mmol/l Magnesium 1.7 (1.7-2.4) mg/dl Total Bilirubin (0.2-1.0) mg/dl Direct Bilirubin 0.3 H AST 21 ALT (7-52) U/L Alkaline Phosphatase (34-104) U/L Troponin I High Sens 30.0 H (0-20) pg/ml B-Natriuretic Peptide 227 H (0-100) pg/ml Total Protein (6.0-8.3) gm/dl Albumin (3.4-5.0) gm/dl Lipase (11-82) U/L Urine Color Urine Appearance (Clear) Urine pH (4.5-7.5) Ur Specific [place] (1.000-1.030) Urine Protein (Negative) Urine Glucose (UA) (Negative) Urine Ketones (Negative) Urine Blood (Negative) Urine Nitrite (Negative) Urine Bilirubin (Negative) Urine Urobilinogen (Negative) Ur Leukocyte Esterase (Negative) Urine WBC (Auto) (0-5) /hpf Urine RBC (Auto) (0-2) /hpf U Hyaline Cast (Auto) (0-2) /lpf U Epithel Cells (Auto) (0-2) /hpf Urine Bacteria (Auto) (None Seen) Granular Casts (None Prsent) /lpf Urine Comment Salicylates (3.0-30) mg/dl Urine Opiates Screen (Neg) Ur Methadone, Qual (Neg) Urine Fentanyl Screen (Neg) Acetaminophen (10-30) ug/ml Urine Barbiturates (Neg) Ur Phencyclidine (PCP) (Neg) U Amphetamin/Meth Scrn (Neg) MDMA (Ecstasy) Screen (Neg) U Benzodiazepines Scrn (Neg) Ur Cocaine Metabolite (Neg) U Marijuana (THC) Screen (Neg) Ethyl Alcohol mg/dL < 10.0 (<10.0) mg/dl Blood Type A Positive Antibody Screen NEGATIVE Administered Medications Allopurinol (Allopurinol 300 Mg Tab) 300 mg NG [facility] Stop: 02/24/25 08:59 Last Admin: 01/25/25 09:07 Dose: 300 mg Documented By: BYRONK Atorvastatin Calcium (Atorvastatin 40 Mg Tab) 40 mg NG [facility] Stop: 02/24/25 08:59 Last Admin: 01/25/25 09:07 Dose: 40 mg Documented By: BYRONK Fentanyl Citrate (Fentanyl Citrate Pf 100 Mcg/2 Ml Vial) 25 mcg IV Q1H PRN PRN Reason: Moderate Pain (4,5,6) on NRS Stop: 02/07/25 21:59 Last Admin: 01/26/25 00:15 Dose: 25 mcg Documented By: Admin: 01/25/25 22:34 Dose: 25 mcg Documented By: Admin: 01/25/25 20:40 Dose: 25 mcg Documented By: Admin: 01/25/25 17:29 Dose: 25 mcg Documented By: Admin: 01/25/25 14:52 Dose: 25 mcg Documented By: Admin: 01/25/25 11:57 Dose: 25 mcg Documented By: DIAMOND Heparin Sodium/Dextrose (Heparin 05479 Unit/500 Ml D5w) 25,000 units in 500 mls @ 22 mls/hr IV .[id number] [facility]; Protocol Stop: 02/23/25 22:29 Last Admin: 01/25/25 20:33 Dose: 1,100 units/hr, 22 mls/hr Documented By: NIKOLAS Co-signed By: [id number] Titration: 01/25/25 20:33 Dose: Infused Documented By: NIKOLAS Co-signed By: [id number] Titration: 01/25/25 19:05 Dose: 1,100 units/hr, 22 mls/hr Documented By: NIKOLAS Co-signed By: DIAMOND Titration: 01/25/25 06:57 Dose: 1,100 units/hr, 22 mls/hr Documented By: BOBBY Co-signed By: DIAMOND Titration: 01/25/25 05:49 Dose: 1,100 units/hr, 22 mls/hr Documented By: BOBBY Co-signed By: CIRO Admin: 01/24/25 22:50 Dose: 1,000 units/hr, 20 mls/hr Documented By: BOBBY Co-signed By: CIRO Parenteral Electrolytes (Plasma-Lyte A Ph 7.4) 1,000 mls @ 90 mls/hr IV .[id number] FRANCY Stop: 01/27/25 22:14 Last Admin: 01/25/25 17:28 Dose: 90 mls/hr Documented By: Infusion: 01/25/25 17:19 Dose: Infused Documented By: Admin: 01/25/25 06:12 Dose: 90 mls/hr Documented By: Infusion: 01/25/25 06:12 Dose: Infused Documented By: Admin: 01/24/25 22:24 Dose: 90 mls/hr Documented By: BOBBY Propofol (Diprivan) 1,000 mg in 100 mls @ 0 mls/hr IV .Q0M FRANCY; Protocol Stop: 01/27/25 23:44 Last Titration: 01/25/25 17:52 Dose: Infused Documented By: Titration: 01/25/25 06:57 Dose: 0 mcg/kg/min, 0 mls/hr Documented By: BOBBY Co-signed By: DIAMOND Titration: 01/25/25 05:09 Dose: 0 mcg/kg/min, 0 mls/hr Documented By: Titration: 01/25/25 04:02 Dose: 10 mcg/kg/min, 6.9 mls/hr Documented By: Titration: 01/25/25 02:20 Dose: 15 mcg/kg/min, 10.3 mls/hr Documented By: Admin: 01/24/25 23:52 Dose: 20 mcg/kg/min, 13.8 mls/hr Documented By: BOBBY Co-signed By: CIRO Piperacillin Sod/Tazobactam Sod (Zosyn) 4.5 gm in 100 mls @ 25 mls/hr IV Q8H [facility]; Protocol Stop: 01/30/25 12:59 Last Infusion: 01/26/25 00:25 Dose: Infused Documented By: Admin: 01/25/25 20:24 Dose: 25 mls/hr Documented By: Infusion: 01/25/25 17:10 Dose: Infused Documented By: Admin: 01/25/25 13:10 Dose: 25 mls/hr Documented By: DIAMOND Pantoprazole Sodium (Protonix) 40 mg in 10 mls @ 5 mls/min IV QPM FRANCY Stop: 02/24/25 20:59 Last Admin: 01/25/25 20:24 Dose: 5 mls/min Documented By: NIKOLAS Insulin Aspart (Insulin Aspart Per Unit Charge) 0 units SC Q6 FRANCY Stop: 02/25/25 00:00 Last Admin: 01/26/25 00:22 Dose: 3 units Documented By: NIKOLAS Co-signed By: CIRO Levothyroxine Sodium (Levothyroxine Sodium 75 Mcg Tablet) 75 mcg NG DAILYBB FRANCY Stop: 02/24/25 06:29 Last Admin: 01/25/25 05:49 Dose: 75 mcg Documented By: BBOBY Miconazole Nitrate (Miconazole Nitrate Powder 85 Gm) 1 appln EXT BID [facility] Stop: 02/24/25 20:59 Last Admin: 01/25/25 20:25 Dose: 1 appln Documented By: NIKOLAS Miscellaneous (Icu Electrolyte Replacement Protocol) 1 each N/A BID@06,18 [facility]; Protocol Stop: 02/01/25 05:59 Last Admin: 01/25/25 17:28 Dose: Not Given Documented By: Admin: 01/25/25 05:52 Dose: 1 each Documented By: BOBBY Multi-Ingredient Cream (Eucerin Cr 120 Gm Jar) 1 appln EXT BID [facility] Stop: 02/24/25 20:59 Last Admin: 01/25/25 20:24 Dose: 1 appln Documented By: NIKOLAS Nutritional Formula (Peptamen Intense Vhp 1.0 True 1,000 Ml Bag) 1,000 ml OG .See Protocol FRANCY; Protocol Stop: 02/24/25 10:29 Last Admin: 01/25/25 13:06 Dose: 1,000 ml Documented By: DIAMOND Sterile Water (Tube Feeding Water Flush) 100 ml OG Q4H [facility] Stop: 02/24/25 10:29 Last Admin: 01/25/25 22:10 Dose: 100 ml Documented By: Admin: 01/25/25 17:28 Dose: 100 ml Documented By: Admin: 01/25/25 14:51 Dose: 100 ml Documented By: Admin: 01/25/25 11:56 Dose: 100 ml Documented By: DIAMOND Discontinued Medications Acetaminophen (Acetaminophen 1000 Mg/100 Ml Iv) Confirm Administered Dose 1,000 mg IV .STK-MED ONE Stop: 01/24/25 20:02 Last Admin: 01/24/25 20:10 Dose: Not Given Documented By: ROHIT Dextrose (Dextrose 50% 50 Ml Syringe) Confirm Administered Dose 50 ml IV .STK- MED ONE Stop: 01/24/25 18:30 Last Admin: 01/24/25 18:30 Dose: 50 ml Documented By: ALBA Fentanyl Citrate (Fentanyl Citrate Pf 100 Mcg/2 Ml Vial) 25 mcg IV Q2H PRN PRN Reason: Moderate Pain (4,5,6) on NRS Stop: 02/07/25 21:59 Last Admin: 01/25/25 07:26 Dose: 25 mcg Documented By: Admin: 01/24/25 22:36 Dose: 25 mcg Documented By: BOBBY Heparin Sodium/Dextrose (Heparin Iv Adult Wt-Based Standard W/ Initial Bolus Protocol) 1 each IV NOW STA; Protocol Stop: 01/24/25 20:23 Last Admin: 01/24/25 21:12 Dose: Not Given Documented By: ROHIT Heparin Sodium/Dextrose (Heparin Iv Adult Wt-Based Low-Dose *No* Initial Bolus Protocol) 1 each IV ONE STA; Protocol Stop: 01/24/25 22:07 Last Admin: 01/24/25 22:50 Dose: 1 each Documented By: BOBBY Propofol (Diprivan) 1,000 mg in 100 mls @ 14.508 mls/hr IV .Q6H54M [facility]; Protocol Stop: 01/24/25 22:00 Last Titration: 01/24/25 22:05 Dose: Infused Documented By: Admin: 01/24/25 19:00 Dose: 20 mcg/kg/min, 14.5 mls/hr Documented By: ROHIT Co-signed By: MARCELO Acetaminophen (Ofirmev) 1,000 mg in 100 mls @ 400 mls/hr IV NOW STA Stop: 01/24/25 20:14 Last Infusion: 01/24/25 20:23 Dose: Infused Documented By: Admin: 01/24/25 20:03 Dose: 400 mls/hr Documented By: ROHIT Ceftriaxone Sodium (Rocephin) 2,000 mg in 50 mls @ 100 mls/hr IV NOW STA Stop: 01/24/25 20:52 Last Admin: 01/24/25 21:10 Dose: Not Given Documented By: KMS Ampicillin Sodium/Sulbactam Sodium (Unasyn) 3,000 mg in 100 mls @ 200 mls/hr IV NOW STA Stop: 01/24/25 21:05 Last Infusion: 01/25/25 00:03 Dose: Infused Documented By: Admin: 01/24/25 21:35 Dose: 200 mls/hr Documented By: BOBBY Potassium Chloride (K eDrian / Wtr) 10 meq in 100 mls @ 100 mls/hr IV Q1H FRANCY Stop: 01/25/25 01:44 Last Infusion: 01/25/25 03:54 Dose: Infused Documented By: Admin: 01/25/25 02:25 Dose: 100 mls/hr Documented By: Infusion: 01/25/25 02:25 Dose: Infused Documented By: Admin: 01/25/25 01:50 Dose: 100 mls/hr Documented By: Infusion: 01/25/25 01:00 Dose: Infused Documented By: Admin: 01/25/25 00:00 Dose: 100 mls/hr Documented By: Infusion: 01/25/25 00:00 Dose: Infused Documented By: Admin: 01/24/25 23:30 Dose: 100 mls/hr Documented By: Infusion: 01/24/25 23:21 Dose: Infused Documented By: Admin: 01/24/25 22:21 Dose: 100 mls/hr Documented By: BOBBY Magnesium Sulfate/Dextrose (Magnesium Sulfate / D5w) 1 gm in 100 mls @ 50 mls/hr IV Q2H FRANCY Stop: 01/25/25 01:59 Last Infusion: 01/25/25 02:09 Dose: Infused Documented By: Admin: 01/24/25 23:53 Dose: 50 mls/hr Documented By: Infusion: 01/24/25 23:53 Dose: Infused Documented By: Admin: 01/24/25 22:22 Dose: 50 mls/hr Documented By: BOBBY Parenteral Electrolytes (Plasma-Lyte A Ph 7.4) 250 mls @ 999 mls/hr IV .Q16M ONE Stop: 01/25/25 03:52 Last Infusion: 01/25/25 04:10 Dose: Infused Documented By: Admin: 01/25/25 03:50 Dose: 999 mls/hr Documented By: BOBBY Magnesium Sulfate/Dextrose (Magnesium Sulfate / D5w) 1 gm in 100 mls @ 50 mls/hr IV Q2H FRANCY Stop: 01/25/25 07:59 Last Admin: 01/25/25 05:55 Dose: Not Given Documented By: Infusion: 01/25/25 05:52 Dose: Infused Documented By: Admin: 01/25/25 03:50 Dose: 50 mls/hr Documented By: BOBBY Piperacillin Sod/Tazobactam Sod (Zosyn) 4.5 gm in 100 mls @ 200 mls/hr IV NOW STA; Protocol Stop: 01/25/25 08:49 Last Infusion: 01/25/25 09:55 Dose: Infused Documented By: Admin: 01/25/25 09:06 Dose: 200 mls/hr Documented By: DIAMOND Ioversol (Optiray 320 125ml) 115 ml IV ONCE ONE Stop: 01/24/25 19:28 Last Admin: 01/24/25 19:27 Dose: 115 ml Documented By: KIMBERLY Ioversol (Optiray 320 125ml) 118 ml IV ONCE ONE Stop: 01/24/25 21:13 Last Admin: 01/24/25 21:12 Dose: 118 ml Documented By: KECIA Metoprolol Tartrate (Metoprolol Tartrate 1 Mg/Ml Vial) 2.5 mg IV NOW STA Stop: 01/24/25 20:31 Last Admin: 01/24/25 21:08 Dose: 2.5 mg Documented By: ROHIT Metoprolol Tartrate (Metoprolol Tartrate 1 Mg/Ml Vial) 2.5 mg IV Q6 FRANCY Stop: 02/24/25 00:00 Last Admin: 01/24/25 23:54 Dose: 2.5 mg Documented By: BOBBY Midazolam HCl (Midazolam Hcl 1 Mg/Ml 2ml Vial) 2 mg IV NOW STA Stop: 01/25/25 22:51 Last Admin: 01/25/25 22:55 Dose: 2 mg Documented By: NIKOLAS Miscellaneous (Rapid Sequence Induction Bag) Confirm Administered Dose 1 each N/A .STK-MED ONE Stop: 01/24/25 18:34 Last Admin: 01/24/25 18:59 Dose: Not Given Documented By: MPD Miscellaneous (Stat Iv Infusion Titration Per Protocol) 1 each N/A NOW STA Stop: 01/24/25 19:51 Last Admin: 01/24/25 20:00 Dose: 1 each Documented By: ROHIT Miscellaneous (Icu Protocol For Hyperglycemia) 1 each N/A Q6 FRANCY Stop: 01/27/25 00:00 Last Admin: 01/25/25 23:53 Dose: 1 each Documented By: Admin: 01/25/25 17:52 Dose: Not Given Documented By: Admin: 01/25/25 12:46 Dose: Not Given Documented By: Admin: 01/25/25 05:52 Dose: 1 each Documented By: Admin: 01/24/25 23:51 Dose: 1 each Documented By: BOBBY Propofol (Propofol Iv Emulsion 10 Mg/Ml 100 Ml Vial) Confirm Administered Dose 1,000 mg IV .STK-MED ONE Stop: 01/24/25 18:35 Last Admin: 01/24/25 19:56 Dose: Not Given Documented By: ROHIT Imaging Data Radiologist's Impression: Chest X-Ray 01/24/25 18:34 Clinical History: Unresponsive Technique: A frontal view of the chest was obtained Findings: There are interstitial and alveolar opacities throughout the left lung, most likely due to pneumonia. The heart is mildly enlarged. No right pleural effusion or pneumothorax is seen. There is a small left pleural effusion There is an endotracheal tube with its tip 5.7 cm above the katja, in satisfactory position. There is thoracic scoliosis Impression: 1. Endotracheal tube in expected position 2. Left lung pneumonia 3. Small left pleural effusion Electronically signed by Pedro Beal 01-24-2025 7:[address] 01/24/25 18:34 Clinical History: Unresponsive Technique: Axial computed tomography images were obtained of the brain without intravenous contrast. Findings: There is diffuse cerebral atrophy, within expected limits for the patient's age. Areas of decreased attenuation are seen within the periventricular white matter, likely representing chronic small vessel ischemic disease. 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 No intracranial hemorrhage is evident. No definite mass lesion is seen on this noncontrast examination. There is no midline shift or other form of herniation. No hydrocephalus is seen. No fracture is identified. There is complete opacification of the left maxillary sinus. There is mucosal thickening in the frontal and ethmoid sinuses. The mastoid air cells appear clear. Impression: 1. Cerebral atrophy, old infarct, and chronic small vessel ischemic disease 2. Sinusitis Electronically signed by Pedro Beal 01-24-2025 7:55 PM Abdomen/Pelvis CT 01/24/25 19:09 CT ABDOMEN and PELVIS with INTRAVENOUS CONTRAST HISTORY: Abdominal pain TECHNIQUE: CT abdomen and pelvis with contrast. IV CONTRAST: 100 mL of OMNIPAQUE 300 ENTERIC CONTRAST: Not Given COMPARISON: CT of the pelvis January 08, 2025 FINDINGS: LIVER: No focal lesion identified. Mild hepatomegaly. GALLBLADDER/BILIARY: Unremarkable gallbladder. No abnormal biliary dilatation. SPLEEN: Unremarkable. PANCREAS: Unremarkable. ADRENALS: Unremarkable. KIDNEYS: Cortical cysts. No stones or hydronephrosis identified. PERITONEUM/RETROPERITONEUM. No lymphadenopathy by size criteria. Infrarenal abdominal aortic aneurysm measuring up to 3.4 cm. GASTROINTESTINAL: No obstruction. Colonic diverticulosis without evidence of diverticulitis. REPRODUCTIVE: Unremarkable URINARY BLADDER: Mild inflammatory changes with wall thickening. ABDOMINAL WALL: Small right larger than left fat-containing hernias. Small fat-containing umbilical hernia. Redemonstrated subcutaneous phlegmonous changes in the buttocks bilaterally, right more than involved than the left. When compared to the pelvic CT examination from January 08, 2025, the visualized inflammatory changes appear improved. No well-formed/drainable fluid collection is identified. BONES: No acute findings. IMPRESSION: Redemonstrated subcutaneous phlegmonous changes in the buttocks bilaterally, right more than involved than the left. When compared to the pelvic CT examination from January 08, 2025, the visualized inflammatory changes appear improved. No well-formed/drainable fluid collection is identified. Mild inflammatory changes of the urinary bladder may be due to cystitis. Electronically signed by Joon Damon 01-24-2025 8:[address] 01/24/25 19:09 CT of the chest with contrast Technique: Postcontrast axial images of the chest. Coronal and sagittal reformatted images made available for review No comparison Findings: Endotracheal tube is present with its tip above the katja. 2.2 cm calcified right thyroid lobe nodule. Irregular thickening of the thyroid isthmus. Although this study is suboptimal for the evaluation of pulmonary emboli there is suggestion of a filling defect within the right upper and lower lobe pulmonary arteries. Similar-appearing though not as conspicuous filling defects are noted within the left main pulmonary artery. Recommend repeat CT scan utilizing pulmonary artery embolus protocol for further evaluation. There is subtle flattening of the interventricular septum which suggests right heart strain. Trace pericardial effusion. Coronary artery calcifications. Left upper lobe infiltrate with left basilar atelectasis. No mediastinal, hilar, or axillary lymphadenopathy. Bone windows demonstrate no focal abnormality. Please see separate dictation for details of the intra-abdominal contents. Impression Although the study is suboptimal for the evaluation of the pulmonary arteries there is suggestion of filling defects within the right upper and lower lobe pulmonary arteries as well as within the left main pulmonary artery. Findings are highly suspicious for pulmonary embolus. Recommend repeat CT angiogram, PE protocol. Evidence of right heart strain. Electronically signed by Amor Marte 01-24-2025 8:09 PM Head CTA 01/24/25 19:09 Clinical history: Unresponsive Technique: Axial computed tomography images were obtained of the brain after the administration of intravenous contrast according to the CT angiogram protocol Findings: No definite stenosis or aneurysm is seen of the anterior, middle, or posterior cerebral artery circulations. The visualized vertebral arteries and the basilar artery appear unremarkable Impression: No definite stenosis or aneurysm of the intracranial arteries Electronically signed by Pedro Beal 01-24-2025 7:57 PM Neck CTA 01/24/25 19:09 Clinical history: Unresponsive Technique: Axial computed tomography images were obtained of the neck after the administration of intravenous contrast according to the CT angiogram protocol Findings: No stenosis is seen of the common carotid arteries bilaterally. The carotid bulbs are patent. There is tortuosity of the mid internal carotid arteries bilaterally. No stenosis of the external carotid arteries is seen The vertebral arteries are patent bilaterally with no significant stenosis seen. The visualized thoracic aorta appears unremarkable There is multilevel degenerative disc disease and osteoarthritis of the cervical spine. There are partially calcified thyroid nodules bilaterally Impression: 1. No definite stenosis of the neck arteries 2. Indeterminate thyroid nodules. A follow-up thyroid ultrasound could be obtained ACT 112: Positive. There are findings on this exam that require communication between the performing entity and the patient following Patient Test Result Information Act ([place] ACT 112) guidelines. Electronically signed by Pedro Beal 01-24-2025 8:00 PM Discharge Plan Visit Data Chief Complaint: Unresponsive ED Provider: Dora Guallpa Discharge Problem: Episode of unresponsiveness, Aspiration into airway, Pulmonary embolism Patient Disposition: Admitted As Inpatient Condition: Fair Discharge Instructions Interventions: ED Discharge Assessment Last Done: 01/24/25 21:24
[2025-01-24] MEDS: Heparin IV Adult Wt-Based Standard w/ INITIAL Bolus Protocol IV STA (21:12)
[2025-01-24 21:30] LABS: iSTAT Art Bld Gas Base Excess -1.0 meg/L (-9-1.8)
[2025-01-24] MEDS ORDERED: DEXTROSE 50% 50 ML SYRINGE IV PRN ×2 (21:31→22:07)
[2025-01-24] MEDS ORDERED: GLUCAGON FOR INJ 1 MG VIAL SQ PRN ×2 (21:31→22:07)
[2025-01-24] MEDS ORDERED: GLUCOSE 10 TAB/TUBE PO PRN ×2 (21:31→22:07)
[2025-01-24] MEDS ORDERED: CARBOHYDRATES FOR HYPOGLYCEMIA PO PRN ×2 (21:31→22:07)
[2025-01-24] MEDS ORDERED: GLUCOSE 40% GEL 15 GM TUBE PO PRN ×2 (21:31→22:07)
[2025-01-24] MEDS: AMPICILLIN/SULBACTAM SOD 3,000 MG/100 ML BAG IV STA (21:35)
[2025-01-24 22:10] LABS: iSTAT Art Bld Gas Base Excess 4.0 meg/L (-9-1.8)
[2025-01-24] MEDS: POTASSIUM CHLORIDE / WTR 10 MEQ/100 ML PLCT IV SCH (22:21)
[2025-01-24] MEDS: MAGNESIUM SULFATE / D5W 1 GM/100 ML BAG IV SCH (22:22)
[2025-01-24] MEDS: PLASMA-LYTE A 1,000 ML IV SCH (22:24)
--- NOTE | 2025-01-24 22:35 | CT Scan Report ---
Exam(s): CTA CHEST IV Amt: 118 cc opti 320 EXAM: CT Angiography Chest With Intravenous Contrast CLINICAL HISTORY: Reason for exam: PE. TECHNIQUE: Axial computed tomographic angiography images of the chest with intravenous contrast. CTDI is 28 mGy and DLP is 870 mGy-cm. Automated exposure control was utilized for the study. A dose lowering technique was utilized adhering to the principles of ALARA. MIP reconstructed images were created and reviewed. COMPARISON: No relevant prior studies available. FINDINGS: Pulmonary arteries: Acute PE involving all lobes bilaterally. Moderate to large clot burden. Aorta: No acute findings. Normal caliber. No dissection. Lungs: Dependent consolidation in the lower lobes and lingula. Pleural space: No pleural effusion. No pneumothorax. Heart: RV to LV ratio greater than 1.1 concerning for right heart strain. Bones/joints: No acute fracture. Soft tissues: Unremarkable. Lymph nodes: Unremarkable. IMPRESSION: 1. Acute PE involving all lobes bilaterally. Moderate to large clot burden. 2. RV to LV ratio greater than 1.1 concerning for right heart strain. 3. Dependent consolidation in the lower lobes and lingula. Infection and/or atelectasis more likely than pulmonary infarct. Communications: Call Doctor Pulmonary Embolism Electronically signed by: Mike Damon MD 01/24/25 22:34 PM
[2025-01-24] MEDS: HEPARIN 25000 UNIT/500 ML D5W 25,000 UNITS/500 ML BAG IV SCH (22:50)
[2025-01-24] MEDS: Heparin IV Adult Wt-Based Low-Dose *NO* INITIAL Bolus Protocol IV STA (22:50)
[2025-01-24] MEDS ORDERED: STAT IV Infusion **Titration per Protocol STA (23:38)
[2025-01-24] MEDS ORDERED: Nursing to Pharmacy Communication SCH (23:45)
[2025-01-24] MEDS: METOPROLOL TARTRATE 1 MG/ML VIAL IV SCH (23:54)
[2025-01-25 01:56] LABS: iSTAT Art Bld Gas Base Excess -1.0 meg/L (-9-1.8)
[2025-01-25] MEDS: PLASMA-LYTE A 250 ML IV ONE (03:50)
[2025-01-25] MEDS: MAGNESIUM SULFATE / D5W 1 GM/100 ML BAG IV SCH (03:50)
[2025-01-25] MEDS ORDERED: AMPICILLIN/SULBACTAM SOD 3,000 MG/100 ML BAG IV SCH (04:00)
[2025-01-25 05:20] LABS: Anion Gap 9.0 (3-11); Blood Urea Nitrogen 13.0 mg/dl (6-23); Calcium 8.6 mg/dl (8.6-10.3); Carbon Dioxide 25.0 mmol/L (21-32); Chloride 103.0 mmol/L (98-107); Creatinine Clr Calc Pharmacy 59.5 ml/min; Glucose 97.0 mg/dl (70-99(Fasting)); Magnesium 2.2 mg/dl (1.7-2.4); Potassium 4.0 mmol/L (3.5-5.1); Sodium 137.0 mmol/L (136-145)
[2025-01-25 05:23] LABS: Hematocrit (blood only) 33.1 % (42.0-52.0); Hemoglobin 10.5 g/dl (14.0-18.0); Mean Corpuscular Hemoglobin 26.8 pg (25.0-34.0); Mean Corpuscular Volume 84.4 fL (80.0-100.0); Platelet Count 201 K/uL (130-400); RDW Standard Deviation 47.3 fL (36.4-46.3); Red Blood Count 3.92 M/uL (4.70-6.10); White Blood Count 23.55 K/ul (4.8-10.8)
[2025-01-25 05:29] LABS: ANTI-Xa, UFH(UnfractionatedHep 0.21 IU/ml (0.3-0.7)
[2025-01-25 05:41] LABS: Immature Granulocytes # (auto) 0.14 K/uL (0.01-0.20); Immature Granulocytes % (auto) 0.6 %
[2025-01-25] MEDS: LEVOTHYROXINE SODIUM 75 MCG TABLET NG SCH (05:49)
[2025-01-25] MEDS: ICU ELECTROLYTE REPLACEMENT PROTOCOL SCH (05:52)
--- NOTE | 2025-01-25 07:41 | Critical Care Progress Note ---
Date of Service January 25, 2025 Assessment & Plan (1) Acute encephalopathy: (2) Bilateral pulmonary embolism: (3) Pericardial effusion: (4) Venous malformation: (5) Atrial fibrillation with rapid ventricular response: (6) DM (diabetes mellitus): (7) Aspiration into airway: (8) GERD (gastroesophageal reflux disease): Plan Reason Critically Ill: 74 YOM presents to the ER unresponsive and intubated on arrival, found to have bilateral pulmonary embolisms on CT and CTA of chest. Pending clinical course of anticoagulation and bleeding risk from sacral venous malformation consideration for transfer may be warranted. Neuro - Encephalopathy, Hx- of SAH in 2012 [facility] ICU: [facility] --Encephalopathy Unknown downtime with hypoglycemia Unsure if the patient had hypoglycemic or anoxic brain injury UDS negative, alcohol negative Follow-up EEG CT head 01/24/2025: Cerebral atrophy, old infarct, chronic small vessel ischemic disease Cardiac - Afib with RVR, Pulmonary embolism bilateral without shock, pericardial effusion -- Afib with RVR - previously on sotalol as well as cardioversion in 2017- Currently on Metoprolol succinate 100 in am, 12.5 in PM, blood pressure medications on hold - PE bilateral- BNP 227, troponin mildly elevated Moderate high risk 2D echo 01/25/2025: EF 50-55%, moderate septal hypokinesis, RV normal in size with normal function, RVSP 50-60 mmHg, RA moderately dilated, borderline left atrial enlargement Heparin infusion - follow bleeding from gluteal wound Oxygen requirement has stabilized. If there is any worsening then EKOS could be thought of Respiratory - Required urgent intubation secondary to unresponsiveness and inability to protect airway CTA chest 01/24/2025 personally reviewed: Consolidative changes appreciated in the inferior lobe of the lingula as well as left lower lobe Minimal left-sided pleural effusion Cardiomegaly Pulmonary emboli in the right main pulmonary artery as well as left lower lobe subsegmental pulmonary arteries No significant mediastinal lymphadenopathy -- VDRF Due to unresponsiveness for reproduction Continue with ventilatory support Keep RASS -1 Daily sedation holidays and SBT's Chlorhexidine mouthwash --Multifocal pneumonia More pronounced on the left side Likely aspiration better continue with antibiotics GI - -- GERD Continue with PPI RENAL/LYTES - -- JERSON Monitor BUN/creatinine Avoid nephrotoxic medications Strict ins and outs - No acute needs - Daniels to gravity ENDO - -- DMII - ICU hyperglycemic protocol HEME - -- Normocytic anemia Monitor H&H ID - -- Aspiration pneumonia Continue with antibiotics Procalcitonin 0.13, nasal MRSA negative --Prophylaxis VTE: Heparin drip GI:None Lines: Peripheral, Daniels Diet: N.p.o. Plan: In/out: +1.5 L, urine output 525 Tmax 39.1 There is a bump in creatinine. Could be because of borderline hypotension. Will consider vasopressors if it blood pressure persistently stays low. Continue with antibiotics to cover for aspiration pneumonia Continue with heparin drip for pulmonary emboli Will start the patient on tube feeds Follow-up EEG report Patient unfortunately is not following any commands. He opens his eyes and is breathing over the vent. Will keep him out of pressure support during the day and when support at night Will be able to figure out the mental status in 72 hours. He is very labile to propofol. Continue with fentanyl pushes. Midazolam drip could be thought of if needed I have personally spent 39 minutes of critical care time in the direct management of this patient. This is a life/limb threatening event. This includes time spent evaluating patient, direct bedside care, chart review, placing orders, interpretation of diagnostic studies, discussion with consultants, patient, and family members, as well as other required patient management activities. This time is exclusive of all separately billable procedures, and teaching time and separate from and in addition to any other critical care service time. Thank you for allowing us to participate in the care of this patient. Please refer to my attending physician's documentation for any further recommendations. Admission and Anticipated Discharge Date Admission Date: January 24, 2025 Subjective Patient seen and examined at bedside. No acute distress, no adverse events overnight Tmax 39.1 Patient was not on any sedation His systolic blood pressure was in the low 100s. He was breathing over the went and double stacking. I put him to pressure support that helped decrease his respiratory rate. He opens his eyes but does not follow any commands Review of Systems 2 Review of Systems: All systems reviewed & are unremarkable except as noted in Subjective Physical Exam 2 Physical Exam: Constitutional: No acute distress HEENT: PERRLA Respiratory system: Decreased air entry bilaterally, no wheeze, no rhonchi, positive crackles bilateral lower lobe CVS: S1-S2 positive, no murmurs or gallops Abdomen: Soft, nontender, nondistended, positive bowel sounds x4, obese Extremities: +1 pulses bilaterally radialis/ dorsalis pedis, no cyanosis, +1 pitting edema bilateral lower extremity, chronic venous stasis Neuro: Opens his eyes but does not follow any commands, breathing over the vent Psych: Unable to assess G/U: Positive Daniels Skin: no rashes, warm and dry Lymphatic: no cervical or axillary lymphadenopathy Results & Data Results & Data Vital Signs (Past 12 Hours) Vital Signs Temp Pulse Pulse Resp BP BP Pulse Ox 01/25/25 07:21 114 H 24 97 01/25/25 06:30 37.5 C 141 H 26 H 97 01/25/25 06:00 121/89 01/25/25 05:54 37.7 C H 130 H 26 H 97 01/25/25 05:18 37.8 C H 123 H 23 97 01/25/25 05:13 102/75 01/25/25 05:08 83/58 L 01/25/25 05:00 83/67 L 01/25/25 05:00 01/25/25 04:57 37.9 C H 141 H 23 97 01/25/25 04:12 38.0 C H 120 H 25 H 97 01/25/25 04:11 92/57 L 01/25/25 04:01 82/59 L 01/25/25 04:00 78/57 L 01/25/25 04:00 01/25/25 03:54 38.0 C H 122 H 24 97 01/25/25 03:36 91/68 L 01/25/25 03:33 38.0 C H 136 H 25 H 96 01/25/25 03:18 96/78 L 01/25/25 03:18 96/78 L 01/25/25 03:12 38.0 C H 131 H 26 H 97 01/25/25 02:31 140 H 27 H 96 01/25/25 02:17 126/87 01/25/25 02:17 126/87 01/25/25 02:06 38.2 C H 135 H 26 H 96 01/25/25 02:03 92/67 L 01/25/25 02:03 38.2 C H 130 H 28 H 94 01/25/25 02:00 38.2 C H 123 H 24 95 01/25/25 02:00 78/56 L 01/25/25 02:00 78/56 L 01/25/25 01:56 24 01/25/25 01:00 38.3 C H 135 H 24 96 01/25/25 01:00 111/73 01/25/25 01:00 111/73 01/25/25 01:00 111/73 01/25/25 00:06 38.4 C H 129 H 24 95 01/25/25 00:01 139 H 114/79 01/25/25 00:00 01/25/25 00:00 139 H 01/24/25 23:54 141 H 160/91 H 01/24/25 23:13 01/24/25 23:09 38.6 C H 140 H 23 94 01/24/25 23:00 160/91 H 01/24/25 23:00 160/91 H 01/24/25 22:45 38.7 C H 139 H 22 95 01/24/25 22:27 38.7 C H 139 H 23 96 01/24/25 22:23 158/90 H 01/24/25 22:22 138 H 159/90 H 01/24/25 22:09 38.8 C H 138 H 23 96 01/24/25 22:06 38.8 C H 137 H 22 96 01/24/25 22:00 158/96 H 01/24/25 22:00 158/96 H 01/24/25 21:48 38.8 C H 137 H 22 93 01/24/25 21:45 22 01/24/25 21:40 137 H 24 98 01/24/25 21:40 38.7 C H 137 H 30 H 145/101 H 92 01/24/25 21:36 145/101 H 01/24/25 21:36 145/101 H 01/24/25 21:36 145/101 H 01/24/25 21:36 145/101 H 01/24/25 21:36 137 H 10 L 97 01/24/25 21:31 01/24/25 21:31 137 H 01/24/25 21:24 01/24/25 21:20 20 01/24/25 21:15 39.0 C H 137 H 22 97 01/24/25 21:11 151/94 H 01/24/25 20:42 39.1 C H 140 H 18 97 01/24/25 20:30 39.1 C H 139 H 18 155/100 H 97 01/24/25 20:15 39.1 C H 138 H 18 156/96 H 97 01/24/25 20:12 39.1 C H 138 H 18 97 01/24/25 20:03 39.0 C H 137 H 18 97 01/24/25 20:00 156/98 H 01/24/25 19:58 39.0 C H 01/24/25 19:57 39.0 C H 137 H 18 97 01/24/25 19:54 38.9 C H 137 H 18 97 Pulse Ox O2 Del Method O2 Del Method O2 Flow Rate FiO2 01/25/25 07:21 50 01/25/25 06:30 01/25/25 06:00 01/25/25 05:54 01/25/25 05:18 01/25/25 05:13 01/25/25 05:08 01/25/25 05:00 01/25/25 05:00 50 01/25/25 04:57 01/25/25 04:12 01/25/25 04:11 01/25/25 04:01 01/25/25 04:00 01/25/25 04:00 50 01/25/25 03:54 01/25/25 03:36 01/25/25 03:33 01/25/25 03:18 01/25/25 03:18 01/25/25 03:12 01/25/25 02:31 60 01/25/25 02:17 01/25/25 02:17 01/25/25 02:06 01/25/25 02:03 01/25/25 02:03 01/25/25 02:00 01/25/25 02:00 01/25/25 02:00 01/25/25 01:56 60 01/25/25 01:00 01/25/25 01:00 01/25/25 01:00 01/25/25 01:00 01/25/25 00:06 01/25/25 00:01 01/25/25 00:00 70 01/25/25 00:00 01/24/25 23:54 01/24/25 23:13 Mechanical Vent 70 01/24/25 23:09 01/24/25 23:00 01/24/25 23:00 01/24/25 22:45 01/24/25 22:27 01/24/25 22:23 01/24/25 22:22 01/24/25 22:09 01/24/25 22:06 01/24/25 22:00 01/24/25 22:00 01/24/25 21:48 01/24/25 21:45 01/24/25 21:40 70 01/24/25 21:40 Mechanical Vent 70 01/24/25 21:36 01/24/25 21:36 01/24/25 21:36 01/24/25 21:36 01/24/25 21:36 01/24/25 21:31 94 Mechanical Vent 01/24/25 21:31 01/24/25 21:24 Mechanical Vent 01/24/25 21:20 01/24/25 21:15 Mechanical Vent 01/24/25 21:11 01/24/25 20:42 Mechanical Vent 01/24/25 20:30 Mechanical Vent 01/24/25 20:15 Mechanical Vent 01/24/25 20:12 Mechanical Vent 01/24/25 20:03 Mechanical Vent 01/24/25 20:00 01/24/25 19:58 01/24/25 19:57 Mechanical Vent 01/24/25 19:54 Mechanical Vent Laboratory Results 01/25/25 04:38 01/25/25 04:38 Coding Level of Care Code 03391 CRITICAL CARE 1ST 30-74M Diagnoses Acute encephalopathy G93.40 Bilateral pulmonary embolism I26.99 Pericardial effusion I31.39 Venous malformation Q27.9 Atrial fibrillation with rapid ventricular response I48.91 DM (diabetes mellitus) E11.9 Aspiration into airway T17.908A GERD (gastroesophageal reflux disease) K21.9
--- NOTE | 2025-01-25 08:43 | XRay Report ---
EXAM: XR chest 1V portable CLINICAL HISTORY: While intubated- eval lines/tubes/lung hunt TECHNIQUE: X-ray image of the chest was obtained in AP portable projection. COMPARISON: 01/24/2025 FINDINGS: Pulmonary Parenchyma: The left lung shows near resolution of the previously noted patchy nonhomogeneous diffuse opacities with less obscured left costophrenic angle Prominent lung markings bilaterally No evidence of right pleural effusion or pleural thickening. The endotracheal tube is 4 cm above the katja, compared to 5.7 cm in the prior study. Heart and Mediastinum: Stable moderate cardiomegaly. No mediastinal widening or masses. No hilar or mediastinal lymphadenopathy. Bony Thorax: Bony thorax appears intact without fractures or deformities. Soft Tissues: Soft tissues overlying the chest wall are unremarkable. The NG tube is seen below the left hemidiaphragm with its tip not seen. IMPRESSION: Left lung shows near resolution of the previously noted patchy nonhomogeneous diffuse opacities with less obscured left costophrenic angle Prominent lung markings bilaterally, endotracheal tube is 4 cm above the katja, compared to 5.7 cm in the prior study Stable moderate cardiomegaly. NG tube is seen below the left hemidiaphragm with its tip not seen. Electronically signed by Hi Guzman 01-25-2025 08:42 AM
[2025-01-25] MEDS: PIPERACILLIN/TAZOBACTAM 4.5 GM/100 ML BAG IV STA (09:06)
[2025-01-25] MEDS: ATORVASTATIN 40 MG TAB NG SCH (09:07)
[2025-01-25 10:41] LABS: Thyroid Stimulating Hormone 0.524 uIu/ml (0.300-4.500)
--- NOTE | 2025-01-25 10:56 | Electrocardiogram Report ---
Test Reason : Blood Pressure : */* mmHG Vent. Rate : 104 BPM Atrial Rate : * BPM P-R Int : * ms QRS Dur : 102 ms QT Int : 310 ms P-R-T Axes : * 61 250 degrees QTcB Int : 407 ms Atrial fibrillation with rapid ventricular response Abnormal ECG When compared with ECG of 07-Jan-2025 19:39, ST now depressed in Lateral leads Inverted T waves have replaced nonspecific T wave abnormality in Lateral leads Confirmed by Moisés Condon ([id number]) on 01/25/2025 10:56:07 AM Referred By: REFERRED SELF Confirmed By: Moisés Condon
--- NOTE | 2025-01-25 10:57 | XCELERA ---
[id number]
--- NOTE | 2025-01-25 11:52 | Ultrasound Report ---
BILATERAL LOWER EXTREMITY VENOUS DOPPLER HISTORY: Screening study. Patient with pulmonary embolus PE- eval for DVT and extent COMPARISON STUDY: None. FINDINGS: RIGHT-There is normal compressibility, flow, and augmentation within the right lower extremity deep v enous system. LEFT-Thrombus is noted within the popliteal vein which is partially occlusive and is age-indeterminat e measuring approximately 3 cm in length. No additional deep or superficial venous thrombus. IMPRESSION: 1. Left lower extremity DVT. 2. No right-sided DVT. ACT 112: Negative or not required by law. Electronically signed by: Pancho Lozada M.D. 01/25/2025 11:51 AM
[2025-01-25] MEDS: TUBE FEEDING WATER FLUSH OG SCH (11:56)
[2025-01-25] MEDS: PEPTAMEN INTENSE VHP 1.0 CAL 1,000 ML BAG OG SCH (13:06)
[2025-01-25] MEDS: PIPERACILLIN/TAZOBACTAM 4.5 GM/100 ML BAG IV SCH (13:10)
[2025-01-25 13:44] LABS: ANTI-Xa, UFH(UnfractionatedHep 0.30 IU/ml (0.3-0.7)
--- NOTE | 2025-01-25 14:38 | Hospitalist Progress Note ---
Date of Service January 25, 2025 Assessment & Plan (1) Acute hypoxemic respiratory failure: Plan: Acute hypoxemic, hypercapnic respiratory failure Acute pulmonary embolism--POA Acute metabolic encephalopathy--POA Suspected multifocal pneumonia secondary to aspiration H/O KARUNA on CPAP H/O SAH --Chest CTA:Acute PE involving all lobes bilaterally. Moderate to large clot burden. RV to LV ratio greater than 1.1 concerning for right heart strain. Dependent consolidation in the lower lobes and lingula. Infection and/or atelectasis more likely than pulmonary infarct. --Venous Doppler:Left lower extremity DVT. No right-sided DVT. --ECHO: Left ventricular EF is normal. Right ventricle systolic function is normal. Borderline left atrial enlargement. Right atrium is moderately dilated. Right ventricular systolic pressure is elevated 50 to 60 mmHg. Mild aortic root dilatation. Inferior vena cava is mildly dilated. Moderate septal hypokinesis. Trace tricuspid regurgitation. --CT Head:Cerebral atrophy, old infarct, and chronic small vessel ischemic disease --Toxicology screen negative -Normal procalcitonin --Blood cultures pending --Sputum culture pending --Continue vent management per critical care team --Appreciate gold charmer help --Continue IV heparin --Empirically on Zosyn -- Consideration for MRI brain if mental status shows no improvement Atrial fibrillation with RVR H/O SAH Given benefits > risks for anticoagulation, continue IV heparin for now Consider resuming beta-arlin if blood pressure tolerates Monitor and replete electrolytes as needed B/L buttock varicosities/vascular malformations Monitor for any bleeding issues while on anticoagulation Hypothyroidism Thyroid nodules Incidental finding on CT --Neck CT:No definite stenosis of the neck arteries. Indeterminate thyroid nodules. A follow-up thyroid ultrasound could be obtained -- Normal TSH Continue levothyroxine Follow-up as outpatient Microscopic hematuria Monitor CBC May need further evaluation as outpatient Chronic diastolic heart failure Valvular heart disease (moderate TR/mild AR) Echo as above Monitor volume status closely Lisinopril, Jardiance, beta-arlin, diuretics on hold DM II HbA1c 6.7 Hold p.o. medications Monitor blood glucose levels Consider adding insulin if blood glucose levels uncontrolled Other chronic conditions: Hypertension Hyperlipidemia PVD GERD Chronic anemia Past alcohol abuse Resume home medications as able DVT Px: IV Heparin Code Status Full code Admission and Anticipated Discharge Date Admission Date: January 24, 2025 Subjective Patient is seen and examined at bedside Intubated Off sedation today Tachycardic on monitor No apparent distress on exam No bleeding issues while on IV heparin Review of Systems Review of Systems: Unobtainable due to endotracheal tube Physical Exam Physical Exam: Physical Exam: Vitals signs as noted above General Appearance:Overweight, no apparent distress, Intubated Head: normocephalic, Atraumatic Eyes: normal inspection Neck: supple, Trachea midline Respiratory/Chest: Decreased breath sounds, CTA, No accessory muscle use Cardiovascular: Irregularly irregular, tachycardic, No murmur Abdomen/GI:Soft, Non tender, protuberant, Bowel sounds present Extremities/Musculoskeletal:normal inspection, + B/L chronic venous stasis changes Neurologic/Psych: Intubated, unable to perform complete neurological exam Skin: normal color, warm Results & Data Results & Data Vital Signs (Past 12 Hours) Vital Signs Temp Pulse Resp BP Pulse Ox O2 Del Method FiO2 01/25/25 11:56 124 H 22 97 40 01/25/25 07:45 Mechanical Vent 01/25/25 07:21 114 H 24 97 50 01/25/25 06:30 37.5 C 141 H 26 H 97 01/25/25 06:00 121/89 01/25/25 05:54 37.7 C H 130 H 26 H 97 01/25/25 05:18 37.8 C H 123 H 23 97 01/25/25 05:13 102/75 01/25/25 05:08 83/58 L 01/25/25 05:00 83/67 L 01/25/25 05:00 50 01/25/25 04:57 37.9 C H 141 H 23 97 01/25/25 04:12 38.0 C H 120 H 25 H 97 01/25/25 04:11 92/57 L 01/25/25 04:01 82/59 L 01/25/25 04:00 78/57 L 01/25/25 04:00 50 01/25/25 03:54 38.0 C H 122 H 24 97 01/25/25 03:36 91/68 L 01/25/25 03:33 38.0 C H 136 H 25 H 96 01/25/25 03:18 96/78 L 01/25/25 03:18 96/78 L 01/25/25 03:12 38.0 C H 131 H 26 H 97 01/25/25 02:31 140 H 27 H 96 60 Laboratory Results Short CBC 01/24/25 01/25/25 Range/Units 18:30 04:38 WBC 11.23 H 23.55 H D (4.8-10.8) K/ul Hgb 10.6 L 10.5 L (14.0-18.0) g/dl Hct 32.9 L 33.1 L (42.0-52.0) % Plt Count 200 201 (130-400) K/uL BMP 01/24/25 01/24/25 01/25/25 18:30 19:40 04:38 Sodium 138 137 Potassium TNP 3.5 4.0 Chloride 105 103 Carbon Dioxide 26 25 BUN 10 13 Creatinine 0.98 1.30 D Glucose 82 97 Calcium 9.0 8.6 Liver Function 01/24/25 01/24/25 Range/Units 18:30 19:40 Total Bilirubin 0.9 (0.2-1.0) mg/dl Direct Bilirubin TNP 0.3 H AST TNP 21 ALT 11 (7-52) U/L Alkaline Phosphatase 77 (34-104) U/L Albumin 3.0 L (3.4-5.0) gm/dl Urine 01/24/25 Range/Units 19:39 Urine Color Yellow Urine Appearance Clear (Clear) Urine pH 5.5 (4.5-7.5) Ur Specific [place] > 1.045 H (1.000-1.030) Urine Protein 2+ H (Negative) Urine Glucose (UA) 3+ H (Negative)
[2025-01-25] MEDS: PANTOprazole 40 MG/10 ML SYR IV SCH (20:24)
[2025-01-25] MEDS: EUCERIN CR 120 GM JAR EXT SCH (20:24)
[2025-01-25] MEDS: MICONAZOLE NITRATE POWDER 85 GM EXT SCH (20:25)
[2025-01-25] MEDS: MIDAZOLAM HCL 1 MG/ML 2ML VIAL IV STA (22:55)
[2025-01-25] MEDS ORDERED: GLUCOSE 10 TAB/TUBE PO PRN (23:54)
[2025-01-25] MEDS ORDERED: CARBOHYDRATES FOR HYPOGLYCEMIA PO PRN (23:54)
[2025-01-25] MEDS ORDERED: GLUCAGON FOR INJ 1 MG VIAL SQ PRN (23:54)
[2025-01-25] MEDS ORDERED: GLUCOSE 40% GEL 15 GM TUBE PO PRN (23:54)
[2025-01-25] MEDS ORDERED: DEXTROSE 50% 50 ML SYRINGE IV PRN (23:54)
[2025-01-26] MEDS: INSULIN ASPART PER UNIT CHARGE SC SCH (00:22)
[2025-01-26] MEDS ORDERED: STAT IV Infusion **Titration per Protocol STA ×2 (03:40→17:58)
[2025-01-26] MEDS: dexMEDEtomidine 200 MCG/50 ML BAG IV SCH (03:52)
[2025-01-26 05:18] LABS: Anion Gap 8.0 (3-11); Blood Urea Nitrogen 18.0 mg/dl (6-23); Calcium 8.7 mg/dl (8.6-10.3); Carbon Dioxide 25.0 mmol/L (21-32); Chloride 102.0 mmol/L (98-107); Creatinine Clr Calc Pharmacy 69.2 ml/min; Glucose 213.0 mg/dl (70-99(Fasting)); Magnesium 2.3 mg/dl (1.7-2.4); Potassium 3.7 mmol/L (3.5-5.1); Sodium 135.0 mmol/L (136-145)
[2025-01-26 05:23] LABS: ANTI-Xa, UFH(UnfractionatedHep 0.14 IU/ml (0.3-0.7)
[2025-01-26 05:25] LABS: Hematocrit (blood only) 30.5 % (42.0-52.0); Hemoglobin 9.8 g/dl (14.0-18.0); Immature Granulocytes # (auto) 0.04 K/uL (0.01-0.20); Immature Granulocytes % (auto) 0.4 %; Mean Corpuscular Hemoglobin 27.3 pg (25.0-34.0); Mean Corpuscular Volume 85.0 fL (80.0-100.0); Platelet Count 187 K/uL (130-400); RDW Standard Deviation 47.9 fL (36.4-46.3); Red Blood Count 3.59 M/uL (4.70-6.10); White Blood Count 10.71 K/ul (4.8-10.8)
[2025-01-26] MEDS: POTASSIUM CHLORIDE 20 MEQ/15 ML UDC NG SCH (05:55)
[2025-01-26] MEDS: POT PHOSPHATE MONOBASIC W/ SOD TAB NG SCH (05:55)
[2025-01-26] MEDS: HEPARIN SOD (PORCINE) 1000 UNIT/ML IV ONE ×2 (06:48→21:20)
--- NOTE | 2025-01-26 07:37 | Critical Care Progress Note ---
Date of Service January 26, 2025 Assessment & Plan (1) Acute encephalopathy: (2) Bilateral pulmonary embolism: (3) Pericardial effusion: (4) Venous malformation: (5) Atrial fibrillation with rapid ventricular response: (6) DM (diabetes mellitus): (7) Aspiration into airway: (8) GERD (gastroesophageal reflux disease): Plan Reason Critically Ill: 74 YOM presents to the ER unresponsive and intubated on arrival, found to have bilateral pulmonary embolisms on CT and CTA of chest. Pending clinical course of anticoagulation and bleeding risk from sacral venous malformation consideration for transfer may be warranted. Neuro - Encephalopathy, Hx- of SAH in 2012 [facility] ICU: [facility] --Encephalopathy Unknown downtime with hypoglycemia Unsure if the patient had hypoglycemic or anoxic brain injury UDS negative, alcohol negative Follow-up EEG CT head 01/24/2025: Cerebral atrophy, old infarct, chronic small vessel ischemic disease Cardiac - Afib with RVR, Pulmonary embolism bilateral without shock, pericardial effusion -- Afib with RVR with runs of SVT- previously on sotalol as well as cardioversion in 2017- Currently on Metoprolol succinate 100 in am, 12.5 in PM, blood pressure medications on hold - PE bilateral- BNP 227, troponin mildly elevated Moderate high risk 2D echo 01/25/2025: EF 50-55%, moderate septal hypokinesis, RV normal in size with normal function, RVSP 50-60 mmHg, RA moderately dilated, borderline left atrial enlargement Heparin infusion - follow bleeding from gluteal wound Oxygen requirement has stabilized. If there is any worsening then EKOS could be thought of Respiratory - Required urgent intubation secondary to unresponsiveness and inability to protect airway CTA chest 01/24/2025 personally reviewed: Consolidative changes appreciated in the inferior lobe of the lingula as well as left lower lobe Minimal left-sided pleural effusion Cardiomegaly Pulmonary emboli in the right main pulmonary artery as well as left lower lobe subsegmental pulmonary arteries No significant mediastinal lymphadenopathy -- VDRF Due to unresponsiveness for reproduction Continue with ventilatory support Keep RASS -1 Daily sedation holidays and SBT's Chlorhexidine mouthwash --Multifocal pneumonia More pronounced on the left side Likely aspiration better continue with antibiotics GI - -- GERD Continue with PPI RENAL/LYTES - -- JERSON --> improving Monitor BUN/creatinine Avoid nephrotoxic medications Strict ins and outs - No acute needs - Daniels to gravity ENDO - -- DMII - ICU hyperglycemic protocol HEME - -- Normocytic anemia Monitor H&H ID - -- Aspiration pneumonia Continue with antibiotics Procalcitonin 0.13, nasal MRSA negative --Prophylaxis VTE: Heparin drip GI:None Lines: Peripheral, Daniels Diet: N.p.o. Plan: In/out: +1.4 L, urine output 1626 Potassium being replaced Will repeat BMP later today Discontinue Precedex if extubated. Trial of SBT with extubation to BiPAP I have personally spent 37 minutes of critical care time in the direct management of this patient. This is a life/limb threatening event. This includes time spent evaluating patient, direct bedside care, chart review, placing orders, interpretation of diagnostic studies, discussion with consultants, patient, and family members, as well as other required patient management activities. This time is exclusive of all separately billable procedures, and teaching time and separate from and in addition to any other critical care service time. Thank you for allowing us to participate in the care of this patient. Please refer to my attending physician's documentation for any further recommendations. Admission and Anticipated Discharge Date Admission Date: January 24, 2025 Subjective Patient seen and examined at bedside. No acute distress. Overnight patient has started to follow some simple commands When I was in the room he was already on pressure support. Blood pressure was in the 120s with MAP in the high 70s. He was tracking but not clearly following any commands. Has been afebrile Was on Precedex 0.3 at the time of examination Review of Systems 2 Review of Systems: Unobtainable due to endotracheal tube Physical Exam 2 Physical Exam: Constitutional: No acute distress HEENT: PERRLA Respiratory system: Decreased air entry bilaterally, no wheeze, no rhonchi, positive crackles bilateral lower lobe CVS: S1-S2 positive, tachycardia Abdomen: Soft, nontender, nondistended, positive bowel sounds x4, obese Extremities: +1 pulses bilaterally radialis/ dorsalis pedis, no cyanosis, +1 pitting edema bilateral lower extremity, chronic venous stasis Neuro: Opens his eyes and tracks but does not follow any commands, breathing over the vent Psych: Unable to assess G/U: Positive Daniels Skin: no rashes, warm and dry Lymphatic: no cervical or axillary lymphadenopathy Results & Data Results & Data Vital Signs (Past 12 Hours) Vital Signs Temp Pulse Resp BP Pulse Ox O2 Del Method FiO2 01/26/25 06:00 36.8 C 91 H 20 89/53 L 98 Mechanical Vent 35 01/26/25 05:06 36.9 C 96 H 20 94/63 L 95 Mechanical Vent 35 01/26/25 04:00 36.8 C 115 H 20 128/76 95 Mechanical Vent 35 01/26/25 04:00 30 01/26/25 03:00 36.9 C 137 H 17 147/86 H 98 Mechanical Vent 35 01/26/25 02:36 132 H 23 97 35 01/26/25 02:00 37 C 126 H 20 153/86 H 97 Mechanical Vent 35 01/26/25 01:00 37 C 117 H 21 129/70 99 Mechanical Vent 35 01/26/25 00:00 37 C 136 H 20 131/81 100 Mechanical Vent 35 01/26/25 00:00 30 01/25/25 23:03 145 H 01/25/25 23:00 36.9 C 144 H 20 113/70 97 Mechanical Vent 30 01/25/25 22:53 144 H 25 H 96 35 01/25/25 22:00 37.1 C 145 H 18 125/84 97 Mechanical Vent 35 01/25/25 21:15 Mechanical Vent 01/25/25 21:03 37.2 C 126 H 17 139/74 96 Mechanical Vent 35 01/25/25 20:00 36.6 C 123 H 20 129/75 97 Mechanical Vent 35 01/25/25 20:00 30 01/25/25 19:45 122 H 20 99 40 Laboratory Results 01/26/25 04:38 01/26/25 04:38 Coding Level of Care Code 94637 CRITICAL CARE 1ST 30-74M Diagnoses Acute encephalopathy G93.40 Bilateral pulmonary embolism I26.99 Pericardial effusion I31.39 Venous malformation Q27.9 Atrial fibrillation with rapid ventricular response I48.91 DM (diabetes mellitus) E11.9 Aspiration into airway T17.908A GERD (gastroesophageal reflux disease) K21.9
--- NOTE | 2025-01-26 07:59 | XRay Report ---
EXAM: XR chest 1V portable CLINICAL HISTORY: while intubated- eval lines/tubes/lung hunt TECHNIQUE: An X-ray image of the chest is obtained in AP projection. COMPARISON: [facility] 01/25/2025, 01/24/2025 FINDINGS: Lines and tubes: The endotracheal tube is 2.5 cm above the katja, compared to 4 cm in the prior study for retraction. The NG tube is seen below the left hemidiaphragm with its tip not seen. Pulmonary Parenchyma: Still seen mildly obscured left costophrenic angle. Fine left lower zone atelectatic bands ( stable) No pulmonary nodules are identified. No evidence of right pleural effusion or pleural thickening. Heart and Mediastinum: Cardiomegaly is seen (stable) . No mediastinal widening or masses. No hilar or mediastinal lymphadenopathy. Bony Thorax: Bony thorax appears intact without fractures or deformities. Soft Tissues: Soft tissues overlying the chest wall are unremarkable. IMPRESSION: 1. The endotracheal tube is 2.5 cm above the katja, compared to 4 cm in the prior study for retraction. 2. Mildly obscured left costophrenic angle likely by pleural effusion/thickening. 3. Fine left lower zone atelectatic bands ( stable) 4. Stable cardiomegaly. 5. NG tube is seen below the left hemidiaphragm with its tip not seen. 6. Improved the Left previously noted patchy nonhomogeneous diffuse opacities. Electronically signed by Hi Guzman 01-26-2025 07:59 AM
[2025-01-26] MEDS: MULTI VIT W/MINERALS LIQUID 15 ML UDC NG SCH (08:11)
[2025-01-26] MEDS: METOPROLOL TARTRATE 1 MG/ML VIAL IV STA (11:42)
[2025-01-26] MEDS: METOPROLOL TARTRATE 1 MG/ML VIAL IV ONE (12:31)
[2025-01-26 13:20] LABS: Anion Gap 6.0 (3-11); Blood Urea Nitrogen 20.0 mg/dl (6-23); Calcium 8.8 mg/dl (8.6-10.3); Carbon Dioxide 28.0 mmol/L (21-32); Chloride 102.0 mmol/L (98-107); Creatinine Clr Calc Pharmacy 72.2 ml/min; Glucose 189.0 mg/dl (70-99(Fasting)); Potassium 3.8 mmol/L (3.5-5.1); Sodium 136.0 mmol/L (136-145)
[2025-01-26 13:24] LABS: ANTI-Xa, UFH(UnfractionatedHep 0.28 IU/ml (0.3-0.7)
--- NOTE | 2025-01-26 14:18 | Hospitalist Progress Note ---
Date of Service January 26, 2025 Assessment & Plan (1) Acute hypoxemic respiratory failure: Plan: Acute hypoxemic, hypercapnic respiratory failure Acute pulmonary embolism--POA Acute metabolic encephalopathy--POA Suspected multifocal pneumonia secondary to aspiration H/O KARUNA on CPAP H/O SAH --Chest CTA:Acute PE involving all lobes bilaterally. Moderate to large clot burden. RV to LV ratio greater than 1.1 concerning for right heart strain. Dependent consolidation in the lower lobes and lingula. Infection and/or atelectasis more likely than pulmonary infarct. --Venous Doppler:Left lower extremity DVT. No right-sided DVT. --ECHO: Left ventricular EF is normal. Right ventricle systolic function is normal. Borderline left atrial enlargement. Right atrium is moderately dilated. Right ventricular systolic pressure is elevated 50 to 60 mmHg. Mild aortic root dilatation. Inferior vena cava is mildly dilated. Moderate septal hypokinesis. Trace tricuspid regurgitation. --CT Head:Cerebral atrophy, old infarct, and chronic small vessel ischemic disease --Toxicology screen negative -Normal procalcitonin --Blood cultures: Negative to date --Sputum culture: Preliminary--light normal ferny --Extubated on 01/26/2025 --Appreciate box fabricator help --Continue IV heparin --Continue Zosyn Zosyn Leukocytosis resolved Atrial fibrillation with RVR SVTs H/O SAH Given benefits > risks for anticoagulation, continue IV heparin for anticoagulation Consider resuming beta-arlin if blood pressure tolerates Monitor and replete electrolytes as needed Heart rate is better today Acute kidney injury Creatinine levels improved Avoid nephrotoxic agents as able Monitor renal function B/L buttock varicosities/vascular malformations Monitor for any bleeding issues while on anticoagulation Hypothyroidism Thyroid nodules Incidental finding on CT --Neck CT:No definite stenosis of the neck arteries. Indeterminate thyroid nodules. A follow-up thyroid ultrasound could be obtained -- Normal TSH Continue levothyroxine Follow-up as outpatient Microscopic hematuria Monitor CBC May need further evaluation as outpatient Chronic diastolic heart failure Valvular heart disease (moderate TR/mild AR) Echo as above Monitor volume status closely Lisinopril, Jardiance, beta-arlin, diuretics on hold DM II HbA1c 6.7 Hold p.o. medications Monitor blood glucose levels Continue insulin per protocol Other chronic conditions: Hypertension Hyperlipidemia PVD GERD Chronic anemia Past alcohol abuse Resume home medications as able DVT Px: IV Heparin Code Status Full code Admission and Anticipated Discharge Date Admission Date: January 24, 2025 Subjective Patient is seen and examined at bedside Drowsy, lethargic during my encounter Patient was extubated to BiPAP this morning Patient denies any chest pain, dyspnea but unable to obtain much history secondary to drowsiness No distress on exam Review of Systems Review of Systems: Other Physical Exam Physical Exam: Physical Exam: Vitals signs as noted above General Appearance:Overweight, no apparent distress, Intubated Head: normocephalic, Atraumatic Eyes: normal inspection, EOMI Neck: supple, Trachea midline Respiratory/Chest: Decreased breath sounds, CTA, No accessory muscle use Cardiovascular: Irregularly irregular, tachycardic, No murmur Abdomen/GI:Soft, Non tender, protuberant, Bowel sounds present Extremities/Musculoskeletal:normal inspection, + B/L chronic venous stasis changes Neurologic/Psych: On BiPAP, lethargic, does not follow simple commands, unable to perform complete neurological exam Skin: normal color, warm Results & Data Results & Data Vital Signs (Past 12 Hours) Vital Signs Temp Pulse Resp BP Pulse Ox O2 Del Method FiO2 01/26/25 12:00 105 H 124/83 01/26/25 12:00 124/83 01/26/25 12:00 105 H 19 98 01/26/25 11:42 126/84 01/26/25 11:42 144 H 126/84 01/26/25 11:39 35.7 C L 144 H 15 99 01/26/25 11:08 129 H 26 H 98 35 01/26/25 11:00 135/89 01/26/25 11:00 35.7 C L 139 H 18 100 01/26/25 10:06 35.7 C L 124 H 18 97 01/26/25 09:06 35.8 C L 108 H 16 96 01/26/25 09:00 103/75 01/26/25 09:00 103/75 01/26/25 08:45 35.8 C L 123 H 16 96 01/26/25 08:42 115 H 29 H 95 35 01/26/25 08:00 36.7 C 105 H 18 96 01/26/25 08:00 Mechanical Vent 01/26/25 07:50 95 H 17 95 35 01/26/25 07:03 36.8 C 90 25 H 91 01/26/25 07:00 101/61 01/26/25 06:00 36.8 C 91 H 20 89/53 L 98 Mechanical Vent 35 01/26/25 05:06 36.9 C 96 H 20 94/63 L 95 Mechanical Vent 35 01/26/25 04:00 36.8 C 115 H 20 128/76 95 Mechanical Vent 35 01/26/25 04:00 30 01/26/25 03:00 36.9 C 137 H 17 147/86 H 98 Mechanical Vent 35 01/26/25 02:36 132 H 23 97 35
[2025-01-26] MEDS: METOPROLOL TARTRATE 1 MG/ML VIAL IV PRN (15:49)
[2025-01-26] MEDS ORDERED: METOPROLOL TARTRATE 1 MG/ML VIAL IV SCH (16:00)
[2025-01-26] MEDS: ADENOSINE IV SOLN 3 MG/ML 2 ML VIAL IV ONE (16:59)
[2025-01-26] MEDS ORDERED: POTASSIUM PHOS 3 MMOL/1 ML INFUSION IV STA (19:10)
[2025-01-26] MEDS: POTASSIUM PHOSPHATE 15 MMOL in SODIUM CHLORIDE 0.9% 250 ML IV ONE (19:31)
[2025-01-26 20:54] LABS: ANTI-Xa, UFH(UnfractionatedHep 0.18 IU/ml (0.3-0.7)
[2025-01-27 04:00] LABS: Hematocrit (blood only) 30.0 % (42.0-52.0); Hemoglobin 9.4 g/dl (14.0-18.0); Immature Granulocytes # (auto) 0.05 K/uL (0.01-0.20); Immature Granulocytes % (auto) 0.5 %; Mean Corpuscular Hemoglobin 26.6 pg (25.0-34.0); Mean Corpuscular Volume 84.7 fL (80.0-100.0); Platelet Count 213 K/uL (130-400); RDW Standard Deviation 47.2 fL (36.4-46.3); Red Blood Count 3.54 M/uL (4.70-6.10); White Blood Count 10.97 K/ul (4.8-10.8)
[2025-01-27 04:15] LABS: Anion Gap 6.0 (3-11); Blood Urea Nitrogen 18.0 mg/dl (6-23); Calcium 8.6 mg/dl (8.6-10.3); Carbon Dioxide 28.0 mmol/L (21-32); Chloride 105.0 mmol/L (98-107); Creatinine Clr Calc Pharmacy 78.7 ml/min; Glucose 177.0 mg/dl (70-99(Fasting)); Magnesium 2.3 mg/dl (1.7-2.4); Potassium 3.7 mmol/L (3.5-5.1); Sodium 139.0 mmol/L (136-145)
[2025-01-27 04:23] LABS: ANTI-Xa, UFH(UnfractionatedHep 0.31 IU/ml (0.3-0.7)
[2025-01-27] MEDS: POTASSIUM CHLORIDE / WTR 10 MEQ/100 ML PLCT IV SCH (04:58)
[2025-01-27] MEDS ORDERED: PHARMACY GLYCEMIC MGMT CONSULT PRN (05:13)
--- NOTE | 2025-01-27 07:51 | XRay Report ---
EXAM: XR chest 1V portable CLINICAL HISTORY: While intubated- eval lines/tubes/lung hunt TECHNIQUE: X-ray image of the chest obtained in AP portable projection. COMPARISON: Prior X-ray dated 01/26/2025 for comparison. FINDINGS: Interval removal of ETT and NGT. Pulmonary Parenchyma: Unchanged atelectatic bands in left lower zone. Unchanged mildly obscured left CP angle likely pleural thickening vs effusion. No pulmonary nodules identified. Heart and Mediastinum: Cardiomegaly. No mediastinal widening or masses. No hilar or mediastinal lymphadenopathy. Bony Thorax: Spondylotic changes in thoracic spine. Bony thorax appears intact without fractures or deformities. Soft Tissues: Soft tissues overlying the chest wall are unremarkable. IMPRESSION: 1. Interval removal of ETT and NGT. 2. Unchanged atelectatic bands in left lower zone. 3. Unchanged mildly obscured left CP angle likely pleural thickening vs effusion. 4. Cardiomegaly. Electronically signed by Hi Guzman 01-27-2025 07:50 AM
--- NOTE | 2025-01-27 08:07 | Critical Care Progress Note ---
Date of Service January 27, 2025 Assessment & Plan (1) Acute encephalopathy: (2) Bilateral pulmonary embolism: (3) Pericardial effusion: (4) Venous malformation: (5) Atrial fibrillation with rapid ventricular response: (6) DM (diabetes mellitus): (7) Aspiration into airway: (8) GERD (gastroesophageal reflux disease): Plan Reason Critically Ill: 74 YOM presents to the ER unresponsive and intubated on arrival, found to have bilateral pulmonary embolisms on CT and CTA of chest. Pending clinical course of anticoagulation and bleeding risk from sacral venous malformation consideration for transfer may be warranted. Neuro - Encephalopathy, Hx- of SAH in 2012 [facility] ICU: [facility] --Encephalopathy Unknown downtime with hypoglycemia Patient seems to have some hypoglycemic injury. It is improving gradually. Closely monitor the trend UDS negative, alcohol negative Follow-up EEG CT head 01/24/2025: Cerebral atrophy, old infarct, chronic small vessel ischemic disease Cardiac - Afib with RVR, Pulmonary embolism bilateral without shock, pericardial effusion -- Afib with RVR with runs of SVT- previously on sotalol as well as cardioversion in 2018- At home on metoprolol succinate 100 in am, 12.5 in PM Diltiazem drip started 01/26/2025 - PE bilateral- BNP 227, troponin mildly elevated Moderate high risk 2D echo 01/25/2025: EF 50-55%, moderate septal hypokinesis, RV normal in size with normal function, RVSP 50-60 mmHg, RA moderately dilated, borderline left atrial enlargement Heparin infusion - follow bleeding from gluteal wound Oxygen requirement has stabilized. If there is any worsening then EKOS could be thought of Respiratory - Required urgent intubation secondary to unresponsiveness and inability to protect airway CTA chest 01/24/2025 personally reviewed: Consolidative changes appreciated in the inferior lobe of the lingula as well as left lower lobe Minimal left-sided pleural effusion Cardiomegaly Pulmonary emboli in the right main pulmonary artery as well as left lower lobe subsegmental pulmonary arteries No significant mediastinal lymphadenopathy --S/p VDRF Due to unresponsiveness for reproduction Extubated 01/26/2025 --Multifocal pneumonia More pronounced on the left side Likely aspiration better continue with antibiotics GI - -- GERD Continue with PPI RENAL/LYTES - -- JERSON --> improving Monitor BUN/creatinine Avoid nephrotoxic medications Strict ins and outs - No acute needs - Daniels to gravity ENDO - -- DMII - ICU hyperglycemic protocol HEME - -- Normocytic anemia Monitor H&H ID - -- Aspiration pneumonia Continue with antibiotics Procalcitonin 0.13, nasal MRSA negative --Prophylaxis VTE: Heparin drip GI:None Lines: Peripheral, Daniels Diet: N.p.o. Plan: In/out: + 227, urine output 2345 Will do swallow eval on the patient today. If the patient is able to swallow then we will resume his home metoprolol succinate at a lower dose If he is not able to swallow then we will continue with diltiazem drip which he is on right now. Complete the course of antibiotics. Potassium being replaced. Case discussed with primary team Okay to downgrade to a telemetry floor With still recommend BiPAP nightly Given the history of AV malformation around the buttock area as well as history of subarachnoid bleed. Transitioning to p.o. DOACs need to be considered in multidisciplinary approach. Continue with heparin drip for the time being Patient's case was discussed with patient's son at bedside on 01/26/2025 I spent more than 50 minutes looking in the chart, images, discussing the plan of care with the patient, RN as well as primary team This includes time spent evaluating patient, direct bedside care, chart review, placing orders, interpretation of diagnostic studies, discussion with consultants, patient, and family members, as well as other required patient management activities. This time is exclusive of all separately billable procedures, and teaching time and separate from and in addition to any other critical care service time. Thank you for allowing us to participate in the care of this patient. Please refer to my attending physician's documentation for any further recommendations. Admission and Anticipated Discharge Date Admission Date: January 24, 2025 Subjective Patient seen and examined at bedside. No acute distress, no adverse events overnight He was oriented to self He did use his BiPAP overnight He was slow to respond. Does follow commands and moves extremities to the same. Has been afebrile Was saturating 94-95% on 1 L nasal cannula. Is having bowel movement Review of Systems 2 Review of Systems: Unobtainable due to mental health condition Physical Exam 2 Physical Exam: Constitutional: No acute distress HEENT: PERRLA Respiratory system: Decreased air entry bilaterally, no wheeze, no rhonchi, positive crackles bilateral lower lobe CVS: S1-S2 positive, tachycardia Abdomen: Soft, nontender, nondistended, positive bowel sounds x4, obese Extremities: +1 pulses bilaterally radialis/ dorsalis pedis, no cyanosis, +1 pitting edema bilateral lower extremity, chronic venous stasis Neuro: Opens his eyes and tracks but does not follow any commands, breathing over the vent Psych: Unable to assess G/U: Positive Daniels Skin: no rashes, warm and dry Lymphatic: no cervical or axillary lymphadenopathy Results & Data Results & Data Vital Signs (Past 12 Hours) Vital Signs Temp Pulse Resp BP Pulse Ox O2 Del Method FiO2 01/27/25 07:00 91 H 18 158/71 H 99 BiPAP 01/27/25 07:00 37.1 C 01/27/25 06:00 37.2 C 142/78 H 01/27/25 06:00 103 H 19 89 L 01/27/25 05:00 137/74 01/27/25 05:00 108 H 19 93 01/27/25 04:09 103 H 17 99 01/27/25 04:00 37.2 C 129/77 01/27/25 04:00 129/77 01/27/25 03:57 106 H 17 99 01/27/25 03:06 137/79 01/27/25 03:03 95 H 19 100 01/27/25 03:00 141/101 H 01/27/25 02:57 95 H 19 01/27/25 02:15 101 H 30 H 96 35 01/27/25 02:00 140/78 01/27/25 02:00 108 H 20 01/27/25 01:30 112 H 21 97 01/27/25 01:00 133/81 01/27/25 00:57 108 H 21 99 01/27/25 00:03 109 H 20 98 01/27/25 00:00 132/72 01/27/25 00:00 109 H 01/26/25 23:57 113 H 22 98 01/26/25 23:00 129/69 01/26/25 22:57 113 H 23 97 01/26/25 22:00 109 H 24 133/87 98 01/26/25 21:53 114 H 27 H 97 35 01/26/25 21:06 118 H 24 149/70 H 92 01/26/25 20:18 113 H 23 127/80 92 Laboratory Results 01/27/25 03:34 01/27/25 03:34 Coding Level of Care Code 77659 SUB INP/OBS CARE 3/50MIN Diagnoses Acute encephalopathy G93.40 Bilateral pulmonary embolism I26.99 Pericardial effusion I31.39 Venous malformation Q27.9 Atrial fibrillation with rapid ventricular response I48.91 DM (diabetes mellitus) E11.9 Aspiration into airway T17.908A GERD (gastroesophageal reflux disease) K21.9
--- NOTE | 2025-01-27 14:35 | Hospitalist Progress Note ---
Date of Service January 27, 2025 Assessment & Plan (1) Acute hypoxemic respiratory failure: Plan: Acute hypoxemic, hypercapnic respiratory failure Acute pulmonary embolism--POA Acute metabolic encephalopathy--POA Suspected multifocal pneumonia secondary to aspiration H/O KARUNA on CPAP H/O SAH --Chest CTA:Acute PE involving all lobes bilaterally. Moderate to large clot burden. RV to LV ratio greater than 1.1 concerning for right heart strain. Dependent consolidation in the lower lobes and lingula. Infection and/or atelectasis more likely than pulmonary infarct. --Venous Doppler:Left lower extremity DVT. No right-sided DVT. --ECHO: Left ventricular EF is normal. Right ventricle systolic function is normal. Borderline left atrial enlargement. Right atrium is moderately dilated. Right ventricular systolic pressure is elevated 50 to 60 mmHg. Mild aortic root dilatation. Inferior vena cava is mildly dilated. Moderate septal hypokinesis. Trace tricuspid regurgitation. 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 --Continue IV heparin --Continue Zosyn Plan for swallow eval today, speech therapy consulted Aspiration precautions Continue BiPAP at bedtime Will downgrade to PCU today Atrial fibrillation with RVR SVTs H/O SAH Given benefits > risks for anticoagulation, continue IV heparin for anticoagulation Continue IV Cardizem drip Home beta-blockers on hold Monitor and replete electrolytes as needed Cardiology consulted Acute kidney injury Avoid nephrotoxic agents as able Monitor renal function Creatinine levels better B/L buttock varicosities/vascular malformations Monitor for any bleeding issues while on anticoagulation Hypothyroidism Thyroid nodules Incidental finding on CT --Neck CT:No definite stenosis of the neck arteries. Indeterminate thyroid nod ules. A follow-up thyroid ultrasound could be obtained -- Normal TSH Continue levothyroxine Follow-up as outpatient Microscopic hematuria Monitor CBC May need further evaluation as outpatient Chronic diastolic heart failure Valvular heart disease (moderate TR/mild AR) Echo as above Monitor volume status closely Lisinopril, Jardiance, beta-arlin, diuretics on hold DM II HbA1c 6.7 Hold p.o. medications Monitor blood glucose levels Continue insulin per protocol Other chronic conditions: Hypertension Hyperlipidemia PVD GERD Chronic anemia Past alcohol abuse Resume home medications as able DVT Px: IV Heparin Code Status Full code Disposition PT OT prior to discharge Admission and Anticipated Discharge Date Admission Date: January 24, 2025 Subjective Patient is seen and examined at bedside More alert, awake today Following simple commands Offers no specific complaints Intermittently confused per RN On Cardizem, IV heparin Saturating well on room air Will downgrade out of ICU today He denies any chest pain, dyspnea, abdominal pain, dizziness Review of Systems Review of Systems: All systems reviewed & are unremarkable except as noted in Subjective Physical Exam Physical Exam: Physical Exam: Vitals signs as noted above General Appearance:Obese, no apparent distress Head: normocephalic, Atraumatic Eyes: normal inspection, EOMI Neck: supple, Trachea midline Respiratory/Chest: Decreased breath sounds, CTA, No accessory muscle use Cardiovascular: Irregularly irregular, tachycardic, No murmur Abdomen/GI:Soft, Non tender, protuberant, Bowel sounds present Extremities/Musculoskeletal:normal inspection, + B/L chronic venous stasis changes Neurologic/Psych: Alert, awake, oriented x 2, follows simple commands, grossly no focal deficits Skin: normal color, warm Results & Data Results & Data Vital Signs (Past 12 Hours) Vital Signs Temp Pulse Pulse Resp BP BP Pulse Ox 01/27/25 13:01 106 H 21 151/85 H 93 01/27/25 12:00 37.0 C 102 H 20 145/83 H 93 01/27/25 11:04 106 H 20 142/80 H 93 01/27/25 10:00 106 H 21 136/75 95 01/27/25 08:00 93 H 22 139/80 93 01/27/25 07:50 01/27/25 07:00 91 H 18 158/71 H 99 01/27/25 07:00 37.1 C 01/27/25 06:00 37.2 C 142/78 H 01/27/25 06:00 103 H 19 89 L 01/27/25 05:00 137/74 01/27/25 05:00 108 H 19 93 01/27/25 04:09 103 H 17 99 01/27/25 04:00 37.2 C 129/77 01/27/25 04:00 129/77 01/27/25 03:57 106 H 17 99 01/27/25 03:06 137/79 01/27/25 03:03 95 H 19 100 01/27/25 03:00 141/101 H 01/27/25 02:57 95 H 19 O2 Del Method O2 Flow Rate 01/27/25 13:01 Room Air 01/27/25 12:00 Nasal Cannula 2 01/27/25 11:04 Nasal Cannula 1 01/27/25 10:00 Nasal Cannula 2 01/27/25 08:00 Nasal Cannula 2 01/27/25 07:50 Nasal Cannula 2 01/27/25 07:00 BiPAP 01/27/25 07:00 01/27/25 06:00 01/27/25 06:00 01/27/25 05:00 01/27/25 05:00 01/27/25 04:09 01/27/25 04:00 01/27/25 04:00 01/27/25 03:57 01/27/25 03:06 01/27/25 03:03 01/27/25 03:00 01/27/25 02:57 Laboratory Results Short CBC 01/27/25 Range/Units 03:34 WBC 10.97 H (4.8-10.8) K/ul Hgb 9.4 L (14.0-18.0) g/dl Hct 30.0 L (42.0-52.0) % Plt Count 213 (130-400) K/uL BMP 01/27/25 03:34 Sodium 139 Potassium 3.7 Chloride 105 Carbon Dioxide 28 BUN 18 Creatinine 1.00 Glucose 177 H Calcium 8.6
--- NOTE | 2025-01-27 15:13 | Cardiology Consultation ---
Date of Consultation January 27, 2025 Assessment & Plan (1) Atrial fibrillation with rapid ventricular response: * Patient with a previous history of paroxysmal atrial fibrillation outpatient Zio patch monitor performed in April, revealed persistent atrial fibrillation/flutter with average rate of 80 bpm. In the meantime ongoing rate control has been pursued with patient taking metoprolol succinate 100 mg in the morning and 62.5 mg in the evening. * Previous chronic anticoagulation with Pradaxa, discontinued in 2023 with recurrent bleeding/anemia from sacral wound * At present, patient is tolerating heparin infusion per * Given his n.p.o. status, I think it is reasonable to continue diltiazem infusion for acute rate control * If nasogastric tube placed or if patient is able to progress to taking oral medication otherwise, will transition off of diltiazem and back to oral metoprolol, perhaps with metoprolol tartrate 50 mg twice daily to start and titrate from there. (2) Bilateral pulmonary embolism: * Echocardiogram consistent with right-sided heart strain with given moderately elevated right ventricular systolic pressures in the range of 50-60 mm Hg that were not noted on previous studies. * Continue heparin infusion (3) Bleeding from wound: * Complex recent issues of bleeding/anemia, which will require ongoing surveillance History of Present Illness Attending Physician: Favio Murray MD History of Present Illness Renan Harris is a 74 year old male seen in cardiology consultation per the request of Dr Murray for the evaluation of atrial fibrillation. The patient was admitted via the emergency department 3 days ago. Per review of records, EMS had checked on the patient when the family had not heard from him and on the arrival of EMS he was found to be unresponsive with a glucose level of 32 mg/dL. There were concerns about aspiration and the patient underwent intubation to protect his airway. A CT chest was performed with the patient on mechanical ventilation on 01/24/2025 revealing acute bilateral pulmonary embolism with CT report describing large clot burden and concerns about right ventricular strain. EKG performed at 01/24/2025 at 1827 shortly after arrival to the hospital revealed atrial fibrillation with mildly with a ventricular rate of 104 bpm nonspecific repolarization abnormalities. The patient was placed on a diltiazem infusion for rate control and remains on this medication at a dose of 10 mg/h. He was placed on heparin for anticoagulation given the findings of acute pulmonary embolism and atrial fibrillation. He was intubated from 01/24/2025 until 01/26/2025. There have been ongoing concerns with regards to his cognitive status. He was able to answer questions for me and to introduce me to his brother who is at the bedside. Speech/swallow evaluation had been attempted today but could not be performed due to decreased level of consciousness. The patient was previously anticoagulated with Pradaxa, the last prescription I see for this in his outpatient chart dates back to December,. Over the last year he has had recurrent bleeding due to bilateral buttock varicosities/vascular malformations and has undergone previous incision and debridement by general surgery. He also has a history of a past remote subarachnoid hemorrhage. Anticoagulation at therefore previously been held due to recurrent anemia from bleeding related to the buttock wounds. Tentative plan had been for consultations as an outpatient with vascular surgery and plastic surgery for this most recent event. History: 1. Paroxysmal (now permanent ) atrial fibrillation initially diagnosed around 2014; on sotalol about 6-8 episodes requiring DCCV x2 02/12/2018 & 02/02/2018 digoxin was added and sotalol discontinued 04/2018 on Pradaxa [id number] 3 (age, HTN, DM); recurrent episode 04/2018 had DCCV but reoccurred about 10 minutes later so started on amiodarone 04/2018, amiodarone discontinued due to significant rash September 2018. At that time continued on metoprolol alone. 3. 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 HTN 5. HLD 6. DM 7. KARUNA on CPAP 8. Obesity 9. H/O ETOH dependence in remission 10. 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 Allergies Allergy/AdvReac Type Severity Reaction Status Date / Time simvastatin Allergy Intermediate myalgias Verified 01/07/25 19:41 sildenafil Allergy Unknown severe Verified 01/07/25 19:41 headache amiodarone Allergy Rash Verified 01/07/25 19:41 Home Medications Medication Instructions Recorded Confirmed Type clonidine HCl 0.3 mg tablet 0.3 mg PO BID 03/18/18 01/24/25 History terazosin 2 mg capsule 2 mg PO HS 04/28/18 01/24/25 History empagliflozin 10 mg tablet 10 mg PO QAM 12/02/23 01/24/25 History (Jardiance) insulin glargine 100 unit/mL (3 75 unit subcut HS 12/02/23 01/24/25 History mL) subcutaneous pen (Lantus Solostar U-100 Insulin) liraglutide 0.6 mg/0.1 mL (18 mg/3 1.2 mg subcut QAM 12/02/23 01/24/25 History mL) subcutaneous pen injector (Victoza 3-Jak) lisinopril 20 mg tablet 20 mg PO PM 12/02/23 01/24/25 History metoprolol succinate 100 mg 100 mg PO QAM 12/02/23 01/24/25 History tablet,extended release 24 hr metoprolol succinate 25 mg 12.5 mg PO QPM 12/02/23 01/24/25 History tablet,extended release 24 hr metoprolol succinate 50 mg 50 mg PO HS 12/02/23 01/24/25 History tablet,extended release 24 hr spironolactone 25 mg tablet 12.5 mg PO QAM 12/02/23 01/24/25 History torsemide 20 mg tablet 40 mg PO BID 12/02/23 01/24/25 History zolpidem 10 mg tablet 10 mg PO HS PRN Sleep 12/25/23 01/24/25 History allopurinol 300 mg tablet 300 mg PO QAM 01/07/25 01/24/25 History atorvastatin 40 mg tablet 40 mg PO QAM 01/07/25 01/24/25 History levothyroxine 75 mcg tablet 75 mcg PO DAILYBB 01/07/25 01/24/25 History metformin 500 mg tablet 500 mg PO BIDM 01/07/25 01/24/25 History gabapentin 100 mg capsule 100 mg PO DAILY 01/24/25 01/24/25 History pantoprazole 40 mg tablet,delayed 40 mg PO BID 01/24/25 01/24/25 History release Patient History Medical History Atrial flutter, paroxysmal Atrial fibrillation with rapid ventricular response Atrial fibrillation AA (alcohol abuse) "Last drink 1990 " Gout Cerebral aneurysm "SAH Non-aneurysmal SAH ([place] 3, H&H, 1, [facility]FNS 1). No f/u needed 2012" On 09/17/15 12:09 Jennifer Falcon wrote "SAH" BPH (benign prostatic hyperplasia) Morbid obesity Surgical History H/O removal of cyst "knee-bakers cyst" History of repair of anterior cruciate ligament of right knee History of inguinal hernia repair Family History Other Family history non-contributory Social History Smoking Status: Unknown if ever smoked Second Hand Exposure: No; Do You Dip or Chew Tobacco: No; Hx Alcohol Use: No Hx Substance Use: No Preferred Language: Hungarian Communication Ability: Impaired Motorcycle Racer Required: No Beliefs That Will Affect Care: None marital status: Current Living Situation: Spouse Other Information That Helps Us Care for You: No Feels Safe at Home: Yes Diet: regular caffeine: Yes during the past year weight has: decreased > 10 lbs Dental Care, Regularly: No Physical Activity Frequency: Does not Exercise Assistive Devices: None Review of Systems Review of Systems: All systems reviewed & are unremarkable except as noted in HPI & below Physical Exam Constitutional: + ill appearing (Chronically ill in appe arance) Neck: trachea midline Cardiovascular: Rate/Rhythm: + tachycardic and + irregularly irregular Heart Sounds: no murmur Vessels: no JVD Gastrointestinal (Abdomen): normal bowel sounds, soft, nontender, no hepatosplenomegaly Skin: Sacral wound Neurologic: Moves all 4 extremities, reduced level of consciousness noted, other providers have expressed concerns Genitourinary: Daniels catheter in place draining clear yellow urine Results & Data Vital Signs (Past 12 Hours) Vital Signs Temp Pulse Pulse Resp BP BP Pulse Ox 01/27/25 13:01 106 H 21 151/85 H 93 01/27/25 12:00 37.0 C 102 H 20 145/83 H 93 01/27/25 11:04 106 H 20 142/80 H 93 01/27/25 10:00 106 H 21 136/75 95 01/27/25 08:00 93 H 22 139/80 93 01/27/25 07:50 01/27/25 07:00 91 H 18 158/71 H 99 01/27/25 07:00 37.1 C 01/27/25 06:00 37.2 C 142/78 H 01/27/25 06:00 103 H 19 89 L 01/27/25 05:00 137/74 01/27/25 05:00 108 H 19 93 01/27/25 04:09 103 H 17 99 01/27/25 04:00 37.2 C 129/77 01/27/25 04:00 129/77 01/27/25 03:57 106 H 17 99 O2 Del Method O2 Flow Rate 01/27/25 13:01 Room Air 01/27/25 12:00 Nasal Cannula 2 01/27/25 11:04 Nasal Cannula 1 01/27/25 10:00 Nasal Cannula 2 01/27/25 08:00 Nasal Cannula 2 01/27/25 07:50 Nasal Cannula 2 01/27/25 07:00 BiPAP 01/27/25 07:00 01/27/25 06:00 01/27/25 06:00 01/27/25 05:00 01/27/25 05:00 01/27/25 04:09 01/27/25 04:00 01/27/25 04:00 01/27/25 03:57 Laboratory Results CBC 01/27/25 Range/Units 03:34 WBC 10.97 H (4.8-10.8) K/ul RBC 3.54 L (4.70-6.10) M/uL Hgb 9.4 L (14.0-18.0) g/dl Hct 30.0 L (42.0-52.0) % Plt Count 213 (130-400) K/uL Neut # (Auto) 7.77 H (1.40-6.50) K/uL Lymph # (Auto) 1.94 (1.20-3.40) K/uL [place] # (Auto) 1.11 H (0.11-0.59) K/uL Eos # (Auto) 0.07 (0.00-0.50) K/uL Baso # (Auto) 0.03 (0.00-0.20) K/uL Comprehensive Metabolic Panel 01/27/25 Range/Units 03:34 Sodium 139 (136-145) mmol/L Potassium 3.7 (3.5-5.1) mmol/L Chloride 105 (98-107) mmol/L Carbon Dioxide 28 (21-32) mmol/L BUN 18 (6-23) mg/dl Creatinine 1.00 (0.6-1.4) mg/dl Glucose 177 H (70-99(Fasting)) mg/dl Calcium 8.6 (8.6-10.3) mg/dl Intake and Output 01/27/25 01/27/25 01/27/25 06:59 14:59 22:59 Intake Total 628.583 / 2275.100 1429.966 / 1429.966 Output Total 580 / 2395 685 / 685 Balance 48.583 / -119.900 744.966 / 744.966 Intake: IV 628.583 / 2275.100 1429.966 / 1429.966 Heparin 58905 Unit/500 ml D5w 420.8 / 420.8 25,000 units In 500 ml @ 1,500 UNITS/HR 30 mls/hr IV .[id number] [facility] Rx#:[id number] Piperacillin/Tazobactam 4.5 gm 91.25 / 291.25 100 / 100 In 100 ml @ 25 mls/hr IV Q8H [facility] Rx#:[id number] Plasma-Lyte A 1,000 ml @ 50 mls 690.833 / 690.833 /hr IV .Q20H [facility] Rx#:[id number] Potassium Chloride / Wtr 10 meq 200 / 200 200 / 200 In 100 ml @ 100 mls/hr IV Q1H [facility] Rx#:[id number] Potassium Phosphate 15 mmol In 255 / 255 Sodium Chloride 0.9% 250 ml @ 88 mls/hr IV ONE ONE Rx#: [id number] dilTIAZem HCL 125 mg In 82.333 / 94.833 18.333 / 18.333 Dextrose 5% 100 ml @ 10 MG/HR 10 mls/hr IV .[id number] [facility] Rx#: [id number] Output: Urine Amount (Catheter) 580 / 2395 685 / 685 Temp Sensing Daniels 580 / 2395 685 / 685 Other: Weight 115.7 kg Weight Measurement Method Built in [facility] Diagnostic Findings Transthoracic echocardiogram performed 01/25/2025: Revealed left atrial enlargement, moderate right atrial enlargement, normal right ventricular chamber size and systolic function, moderate septal hypokinesis, low normal LVEF in the range of 50 to 55%, elevated right ventricular systolic pressure in the range of 50 to 60 mmHg. - Compared to the report of the outpatient echocardiogram performed in July,, LVEF was in the range of 50 to 59% at that time without noted regional wall motion abnormalities. The right ventricular systolic pressure is estimated to be about 20 mm Hg at that time PG Care Time/CCT Total # of Minutes Spent Total Time Spent with Patient: Total time spent is greater than 50% in coordination of care (as documented) at patient's floor/unit and/or counseling patient: Coding Level of Care Code 84606 IN/OBS CONSULT LVL 4,60M Diagnoses Atrial fibrillation with rapid ventricular response I48.91 Bilateral pulmonary embolism I26.99 Bleeding from wound T14.8XXA
[2025-01-28 05:49] LABS: Hematocrit (blood only) 32.2 % (42.0-52.0); Hemoglobin 9.9 g/dl (14.0-18.0); Mean Corpuscular Hemoglobin 26.4 pg (25.0-34.0); Mean Corpuscular Volume 85.9 fL (80.0-100.0); Platelet Count 261 K/uL (130-400); RDW Standard Deviation 48.0 fL (36.4-46.3); Red Blood Count 3.75 M/uL (4.70-6.10); White Blood Count 8.27 K/ul (4.8-10.8)
[2025-01-28 06:11] LABS: ANTI-Xa, UFH(UnfractionatedHep 0.23 IU/ml (0.3-0.7)
[2025-01-28 06:35] LABS: Anion Gap 7.0 (3-11); Blood Urea Nitrogen 12.0 mg/dl (6-23); Calcium 9.1 mg/dl (8.6-10.3); Carbon Dioxide 29.0 mmol/L (21-32); Chloride 107.0 mmol/L (98-107); Creatinine Clr Calc Pharmacy 77.6 ml/min; Glucose 148.0 mg/dl (70-99(Fasting)); Magnesium 2.2 mg/dl (1.7-2.4); Potassium 3.4 mmol/L (3.5-5.1); Sodium 143.0 mmol/L (136-145)
--- NOTE | 2025-01-28 07:49 | Cardiology Progress Note ---
Date of Service January 28, 2025 Assessment & Plan (1) Atrial fibrillation with rapid ventricular response: Plan: * Patient with a previous history of paroxysmal atrial fibrillation outpatient Zio patch monitor performed in April, revealed persistent atrial fibrillation/flutter with average rate of 80 bpm. In the meantime ongoing rate control has been pursued with patient taking metoprolol succinate 100 mg in the morning and 62.5 mg in the evening. 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 (3) Bleeding from wound: Plan: * Complex recent issues of bleeding/anemia Plan 74-year-old male who was initially seen by cardiology for the evaluation of atrial fibrillation. Found to be unresponsive with glucose level of 32 mg/dL upon arrival. Concerns about aspiration and the patient underwent intubation to protect his airway. CT chest (01/24/25) revealed acute bilateral pulmonary embolism with large clot burden and concerns for right ventricular strain. EKG after arrival revealed AFIB with mildly elevated ventricular rate of 104 bpm. Started on diltiazem gtt for rate control and heparin gtt for anticoagulation. He was intubated from 01/24/25 to 01/26/25. 1. AFIB with RVR * AFIB with ventricular rates improved in 70-110s upon telemetry review * Continue IV heparin gtt for anticoagulation * Remains NPO and would continue IV diltiazem gtt for rate control * Will consider transition off of diltiazem and back to oral metoprolol tartrate 50 mg twice daily once patient is able to take oral medications 2. Bilateral PE * ECHO (01/25/25) with right-sided heart strain with moderately dilated right ventricle pressures at 50-60 mmHg * Remains stable with oxygen saturations in mid 90s on room air * Continue IV heparin gtt for anticoagulation * Will defer to primary 3. Bleeding from wound * Hemoglobin remains stable (9.4 -> 9.9) on AM labs * Continue to closely monitor H&H on anticoagulation Case discussed and coordinated with Dr. Blanchard. Please see Dr. Blanchard notes for further recommendations. I spent a total of 35 minutes coordinating, documenting, and providing care for this patient excluding time spent in the performance of separately billed services or time spent by another provider/QHP. MONICA Mckeon Department of Cardiology Admission and Anticipated Discharge Date Admission Date: January 24, 2025 Supervising Physician Co-Signing Physician Notes I spent a total of 30 minutes on the date of service in preparation, delivery, and documentation of the care provided to this patient, excluding any time spent in the performance of separately billed services. I have personally performed a history and physical examination on the patient. I have reviewed the advance practitioner's documentation, and I agree with, and take responsibility for the plan of care. Subjective Seen by cardiology today for examination and follow-up. Laying comfortably in bed on room air and in no acute distress. No significant events overnight per RN. Feels heart pounding and racing this morning. Denies chest pressure, pain, lightheadedness, orthopnea, PND, or worsening edema. Chart, medications, and telemetry personally reviewed. Review of Systems Review of Systems: See HPI for pertinent positives. All others negative other than those noted in the HPI. CONSTITUTIONAL: No change in weight, No weakness, No fatigue, No fevers, No sweats or chills. HEENT: No visual changes, No epistaxis, No bleeding gums, No dysphagia, PULMONARY: No cough, sputum, or hemoptysis, No wheezing, No shortness of breath, and No recent change in breathing. CARDIOVASCULAR: +palpitations. No chest pain, No dyspnea on exertion, No edema, No syncope, No claudication, No calf pain. GASTROINTESTINAL: No change in appetite, No abdominal pain, No change in bowel habits, No significant heartburn, No nausea, No vomiting, No diarrhea, No constipation, No blood in stools or black tarry stools, No dysphagia. HEMATOLOGIC: No abnormal bleeding and No bruising. NEUROLOGICAL: No falls, No dizziness, No lightheadedness, Normal balance, No headaches, and No weakness. PSYCH: No sleep disturbances, No mood changes. Physical Exam Physical Exam: Vital signs within normal limits as above. General: Well developed and nourished. No acute distress. A+Ox3. HEENT: Normocephalic. Atraumatic. EOMI. Conjunctiva and sclera clear. NECK: Trachea midline. No thyromegaly. No carotid bruits. No JVD. Carotid upstrokes are brisk. Heart: Irregularly irregular rhythm. Tachycardic. S1 and S2 noted. No murmur. No rubs or gallops. Abdomen: Normal bowel sounds. Soft. Nontender. No abdominal bruits. Extremities: Trace BLE edema. Chronic venous stasis changes. Pulses: radial=2/4, dorsal pedis=2/4. Skin: Warm and dry. NEURO: Confused. Results & Data Vital Signs (Past 12 Hours) Vital Signs Temp Pulse Pulse Resp BP BP Pulse Ox 01/28/25 03:47 36.7 C 92 H 16 140/75 97 01/28/25 00:00 112 H 01/27/25 22:54 37.3 C 104 H 19 135/67 92 01/27/25 20:00 37.1 C 104 H 19 133/78 96 O2 Del Method 01/28/25 03:47 Room Air 01/28/25 00:00 01/27/25 22:54 Room Air 01/27/25 20:00 Room Air Laboratory Results CBC 01/28/25 Range/Units 04:38 WBC 8.27 (4.8-10.8) K/ul RBC 3.75 L (4.70-6.10) M/uL Hgb 9.9 L (14.0-18.0) g/dl Hct 32.2 L (42.0-52.0) % Plt Count 261 (130-400) K/uL Comprehensive Metabolic Panel 01/28/25 Range/Units 04:38 Sodium 143 (136-145) mmol/L Potassium 3.4 L (3.5-5.1) mmol/L Chloride 107 (98-107) mmol/L Carbon Dioxide 29 (21-32) mmol/L BUN 12 (6-23) mg/dl Creatinine 1.00 (0.6-1.4) mg/dl Glucose 148 H (70-99(Fasting)) mg/dl Calcium 9.1 (8.6-10.3) mg/dl Intake and Output 01/27/25 01/28/25 01/28/25 22:59 06:59 14:59 Intake Total 410.833 / 2349.299 508.5 / 2349.299 36.533 / 36.533 Output Total 240 / 2525 1600 / 2525 Balance 170.833 / -175.701 -1091.5 / -175.701 36.533 / 36.533 Intake: IV 410.833 / 2349.299 508.5 / 2349.299 36.533 / 36.533 Heparin 16052 Unit/500 ml D5w 191 / 920.8 309 / 920.8 19.2 / 19.2 25,000 units In 500 ml @ 1,600 UNITS/HR 32 mls/hr IV .[id number] [facility] Rx#:[id number] Piperacillin/Tazobactam 4.5 gm 100 / 300 100 / 300 In 100 ml @ 25 mls/hr IV Q8H [facility] Rx#:[id number] dilTIAZem HCL 125 mg In 119.833 / 237.666 99.5 / 237.666 17.333 / 17.333 Dextrose 5% 100 ml @ 10 MG/HR 10 mls/hr IV .[id number] [facility] Rx#: [id number] Output: Urine Amount (Catheter) 220 / 2505 1600 / 2505 Temp Sensing Daniels 220 / 2505 1600 / 2505 Drain Output 20 / 20 Right Lower Lateral Abdomen JET 20 / 20 #1 Diagnostic Findings ECHO 01/25/25 Borderline left atrial enlargement Moderately dilated right atrium Right ventricular systolic pressure elevated at 50-60 mmHg Mild aortic root dilatation Mildly dilated inferior vena cava PG Care Time/CCT Total # of Minutes Spent Total Time Spent: 35 Total Time Spent with Patient: Total time spent is greater than 50% in coordination of care (as documented) at patient's floor/unit and/or counseling patient: Coding [place] [address] SUB INP/OBS CARE 3/50MIN Patient Type Established Diagnoses Atrial fibrillation with rapid ventricular response I48.91 Bilateral pulmonary embolism I26.99 Bleeding from wound T14.8XXA Time Spent (min) 50
[2025-01-28] MEDS ORDERED: SODIUM PHOSPHATE 3 MMOL/1 ML INFUSION IV ONE (09:27)
[2025-01-28] MEDS: POTASSIUM CHLORIDE / WTR 10 MEQ/100 ML PLCT IV SCH (09:51)
[2025-01-28] MEDS ORDERED: SODIUM PHOSPHATE 21 MMOL in SODIUM CHLORIDE 0.9% 500 ML IV ONE (10:00)
[2025-01-28 12:46] LABS: ANTI-Xa, UFH(UnfractionatedHep 0.30 IU/ml (0.3-0.7)
[2025-01-28] MEDS: THIAMINE HCL 100 MG in SYRINGE 9 ML IV SCH (12:56)
[2025-01-28] MEDS: SODIUM PHOSPHATE 21 MMOL in SODIUM CHLORIDE 0.9% 500 ML IV ONE (13:00)
--- NOTE | 2025-01-28 16:25 | Hospitalist Progress Note ---
Date of Service January 28, 2025 Assessment & Plan (1) Acute hypoxemic respiratory failure: Plan: Acute hypoxemic, hypercapnic respiratory failure Acute pulmonary embolism--POA Acute metabolic encephalopathy--POA Suspected multifocal pneumonia secondary to aspiration H/O KARUNA on CPAP H/O SAH --Chest CTA:Acute PE involving all lobes bilaterally. Moderate to large clot burden. RV to LV ratio greater than 1.1 concerning for right heart strain. Dependent consolidation in the lower lobes and lingula. Infection and/or atelectasis more likely than pulmonary infarct. --Venous Doppler:Left lower extremity DVT. No right-sided DVT. --ECHO: Left ventricular EF is normal. Right ventricle systolic function is normal. Borderline left atrial enlargement. Right atrium is moderately dilated. Right ventricular systolic pressure is elevated 50 to 60 mmHg. Mild aortic root dilatation. Inferior vena cava is mildly dilated. Moderate septal hypokinesis. Trace tricuspid regurgitation. 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 tentering machine off bearer help --Continue IV heparin --Continue Zosyn Plan for swallow eval today, speech therapy consulted Aspiration precautions Continue BiPAP at bedtime Continue current management Atrial fibrillation with RVR SVTs H/O SAH Given benefits > risks for anticoagulation, continue IV heparin for anticoagulation Continue IV Cardizem drip Home beta-blockers on hold Monitor and replete electrolytes as needed Appreciate cardiology input Plan to transition to oral medications once able to tolerate Acute metabolic encephalopathy Delirium Reorient frequently Started on thiamine Delirium precautions Acute kidney injury Avoid nephrotoxic agents as able Monitor renal function Creatinine levels back to baseline B/L buttock varicosities/vascular malformations Monitor for any bleeding issues while on anticoagulation Hypothyroidism Thyroid nodules Incidental finding on CT --Neck CT:No definite stenosis of the neck arteries. Indeterminate thyroid nodules. A follow-up thyroid ultrasound could be obtained -- Normal TSH Continue levothyroxine Follow-up as outpatient Microscopic hematuria Monitor CBC May need further evaluation as outpatient Chronic diastolic heart failure Valvular heart disease (moderate TR/mild AR) Echo as above Monitor volume status closely Lisinopril, Jardiance, beta-arlin, diuretics on hold DM II HbA1c 6.7 Hold p.o. medications Monitor blood glucose levels Continue insulin per protocol Other chronic conditions: Hypertension Hyperlipidemia PVD GERD Chronic anemia Past alcohol abuse Resume home medications as able DVT Px: IV Heparin Code Status Full code Disposition PT OT prior to discharge Admission and Anticipated Discharge Date Admission Date: January 24, 2025 Subjective Patient is seen and examined at bedside Pleasantly confused Admits to have intermittent palpitations On IV Cardizem, heparin drip No other complaints Tried to reach patient's son over the phone--no answer Review of Systems Review of Systems: All systems reviewed & are unremarkable except as noted in Subjective Physical Exam Physical Exam: Physical Exam: Vitals signs as noted above General Appearance:Obese, no apparent distress Head: normocephalic, Atraumatic Eyes: normal inspection, EOMI Neck: supple, Trachea midline Respiratory/Chest: Decreased breath sounds, CTA, No accessory muscle use Cardiovascular: Irregularly irregular, tachycardic, No murmur Abdomen/GI:Soft, Non tender, protuberant, Bowel sounds present Extremities/Musculoskeletal:normal inspection, + B/L chronic venous stasis changes Neurologic/Psych: Alert, awake, oriented x 2, follows simple commands, grossly no focal deficits Skin: normal color, warm Results & Data Results & Data Vital Signs (Past 12 Hours) Vital Signs Temp Pulse Resp BP Pulse Ox O2 Del Method 01/28/25 13:30 76 20 146/71 H 95 Room Air 01/28/25 11:14 37.0 C 82 20 170/81 H 97 Room Air 01/28/25 08:00 Room Air 01/28/25 07:00 36.8 C Laboratory Results Short CBC 01/28/25 Range/Units 04:38 WBC 8.27 (4.8-10.8) K/ul Hgb 9.9 L (14.0-18.0) g/dl Hct 32.2 L (42.0-52.0) % Plt Count 261 (130-400) K/uL BMP 01/28/25 04:38 Sodium 143 Potassium 3.4 L Chloride 107 Carbon Dioxide 29 BUN 12 Creatinine 1.00 Glucose 148 H Calcium 9.1
[2025-01-29 04:51] LABS: ANTI-Xa, UFH(UnfractionatedHep 0.29 IU/ml (0.3-0.7)
[2025-01-29 05:00] LABS: Anion Gap 7.0 (3-11); Blood Urea Nitrogen 10.0 mg/dl (6-23); Calcium 8.7 mg/dl (8.6-10.3); Carbon Dioxide 27.0 mmol/L (21-32); Chloride 108.0 mmol/L (98-107); Creatinine Clr Calc Pharmacy 74.6 ml/min; Glucose 163.0 mg/dl (70-99(Fasting)); Magnesium 2.0 mg/dl (1.7-2.4); Potassium 3.6 mmol/L (3.5-5.1); Sodium 142.0 mmol/L (136-145)
--- NOTE | 2025-01-29 07:33 | Cardiology Progress Note ---
Date of Service January 29, 2025 Assessment & Plan (1) Atrial fibrillation with rapid ventricular response: (2) Bilateral pulmonary embolism: (3) Bleeding from wound: Plan 74-year-old male who was initially seen by cardiology for the evaluation of atrial fibrillation. Patient with a previous history of paroxysmal AFIB with Zio monitor (04/2023) that revealed persistent atrial fibrillation/flutter with average rate of 80 bpm. Rates controlled with metoprolol succinate 100 mg in the morning and 62.5 mg in the evening prior to admission. 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 Found to be unresponsive with glucose level of 32 mg/dL upon arrival. Concerns about aspiration and the patient underwent intubation to protect his airway. CT chest (01/24/25) revealed acute bilateral pulmonary embolism with large clot burden and concerns for right ventricular strain. EKG after arrival revealed AFIB with mildly elevated ventricular rate of 104 bpm. Started on diltiazem gtt for rate control and heparin gtt for anticoagulation. He was intubated from 01/24/25 to 01/26/25. Evaluated by speech therapy and swallow evaluation yesterday (01/28). Still remains on aspiration precautions. 1. AFIB with RVR * AFIB with ventricular rates improved in 70-110s with intermittent rates in 120-130s overnight upon telemetry review * Continue IV heparin gtt for anticoagulation * Remains on aspiration precautions per speech therapy and would continue IV diltiazem gtt for rate control * Will consider transition off of diltiazem to oral metoprolol tartrate 50 mg twice daily once patient is able to take oral medications * Continue to monitor and replace electrolytes as needed (goal K+ 4.0; Mg 2.0) 2. Bilateral PE * ECHO (01/25/25) with right-sided heart strain with moderately dilated right ventricle pressures at 50-60 mmHg * Remains stable with good oxygen saturations on room air * Continue IV heparin gtt for anticoagulation 3. Bleeding from wound * Hemoglobin remains stable (9.4 -> 9.9) on AM labs * Continue to closely monitor H&H on anticoagulation Case discussed and coordinated with Dr. Blanchard. Please see Dr. Blanchard notes for further recommendations. I spent a total of 35 minutes coordinating, documenting, and providing care for this patient excluding time spent in the performance of separately billed services or time spent by another provider/QHP. MONICA Mckeon Department of Cardiology Admission and Anticipated Discharge Date Admission Date: January 24, 2025 Supervising Physician Co-Signing Physician Notes I spent a total of 25 minutes on the date of service in preparation, delivery, and documentation of the care provided to this patient, excluding any time spent in the performance of separately billed services. I have personally performed a history and physical examination on the patient. I have reviewed the advance practitioner's documentation, and I agree with, and take responsibility for the plan of care. Subjective Seen by cardiology today for examination and follow-up. Laying comfortably in bed on room air. Increased hallucinations and confusion overnight per RN. Evaluated by speech therapy and swallow evaluation yesterday. Remains on aspiration precautions. Still feels ongoing heart racing otherwise feeling well. Denies chest pressure, pain, lightheadedness, dizziness, syncope, orthopnea, PND, or worsening edema. Chart, medications, and telemetry personally reviewed. Review of Systems Review of Systems: See HPI for pertinent positives. All others negative other than those noted in the HPI. CONSTITUTIONAL: No change in weight, No weakness, No fatigue, No fevers, No sweats or chills. HEENT: No visual changes, No epistaxis, No bleeding gums, No dysphagia, PULMONARY: No cough, sputum, or hemoptysis, No wheezing, No shortness of breath, and No recent change in breathing. CARDIOVASCULAR: +palpitations. No chest pain, No dyspnea on exertion, No edema, No syncope, No claudication, No calf pain. GASTROINTESTINAL: No change in appetite, No abdominal pain, No change in bowel habits, No significant heartburn, No nausea, No vomiting, No diarrhea, No constipation, No blood in stools or black tarry stools, No dysphagia. HEMATOLOGIC: No abnormal bleeding and No bruising. NEUROLOGICAL: No falls, No dizziness, No lightheadedness, Normal balance, No headaches, and No weakness. PSYCH: No sleep disturbances, No mood changes. Physical Exam Physical Exam: Vital signs within normal limits as above. General: Well developed and nourished. No acute distress. A+Ox3. HEENT: Normocephalic. Atraumatic. EOMI. Conjunctiva and sclera clear. NECK: Trachea midline. No thyromegaly. No carotid bruits. No JVD. Carotid upstrokes are brisk. Heart: Irregularly irregular rhythm. Tachycardic. S1 and S2 noted. No murmur. No rubs or gallops. Abdomen: Normal bowel sounds. Soft. Nontender. No abdominal bruits. Extremities: Trace BLE edema. Chronic venous stasis changes. Pulses: radial=2/4, dorsal pedis=2/4. Skin: Warm and dry. NEURO: Confused. Results & Data Vital Signs (Past 12 Hours) Vital Signs Temp Pulse Resp BP Pulse Ox O2 Del Method 01/29/25 07:11 141/89 H 01/29/25 07:11 141/89 H 01/29/25 07:09 37.3 C 95 H 23 93 01/29/25 07:03 37.3 C 78 20 141/89 H 92 01/29/25 06:21 37.3 C 107 H 27 H 92 01/29/25 05:00 37.2 C 85 16 89 L 01/29/25 04:09 37.2 C 87 21 93 01/29/25 03:06 37.2 C 85 21 91 01/29/25 03:02 37.2 C 88 22 139/66 93 Room Air 01/29/25 00:00 96 H 01/28/25 22:59 37.0 C 103 H 36 H 165/79 H 95 Room Air 01/28/25 19:50 Room Air Laboratory Results Comprehensive Metabolic Panel 01/29/25 Range/Units 04:03 Sodium 142 (136-145) mmol/L Potassium 3.6 (3.5-5.1) mmol/L Chloride 108 H (98-107) mmol/L Carbon Dioxide 27 (21-32) mmol/L BUN 10 (6-23) mg/dl Creatinine 1.04 (0.6-1.4) mg/dl Glucose 163 H (70-99(Fasting)) mg/dl Calcium 8.7 (8.6-10.3) mg/dl Intake and Output 01/28/25 01/29/25 01/29/25 22:59 06:59 14:59 Intake Total 1207.467 / 2069.933 435.933 / 2069.933 67.5 / 67.5 Output Total 175 / 1300 400 / 1300 Balance 1032.467 / 769.933 35.933 / 769.933 67.5 / 67.5 Intake: IV 1207.467 / 2069.933 435.933 / 2069.933 67.5 / 67.5 Heparin 60387 Unit/500 ml D5w 480.800 / 730.933 230.933 / 730.933 59.5 / 59.5 25,000 units In 500 ml @ 1,700 UNITS/HR 34 mls/hr IV .[id number] [facility] Rx#:[id number] Piperacillin/Tazobactam 4.5 gm 100 / 300 100 / 300 In 100 ml @ 25 mls/hr IV Q8H [facility] Rx#:[id number] Sodium Phosphate 21 mmol In 507 / 507 Sodium Chloride 0.9% 500 ml @ 88 mls/hr IV [facility] Rx#: [id number] dilTIAZem HCL 125 mg In 119.667 / 242.000 105 / 242.000 8 / 8 Dextrose 5% 100 ml @ 10 MG/HR 10 mls/hr IV .[id number] [facility] Rx#: [id number] Oral 0 / 0 0 / 0 Output: Urine Amount (Catheter) 175 / 1300 400 / 1300 Temp Sensing Daniels 175 / 1300 400 / 1300 Other: Weight 115.5 kg Weight Measurement Method Built in [facility] Diagnostic Findings ECHO 01/25/25 Borderline left atrial enlargement Moderately dilated right atrium Right ventricular systolic pressure elevated at 50-60 mmHg Mild aortic root dilatation Mildly dilated inferior vena cava PG Care Time/CCT Total # of Minutes Spent Total Time Spent with Patient: Total time spent is greater than 50% in coordination of care (as documented) at patient's floor/unit and/or counseling patient: Coding [place] [address] SUB INP/OBS CARE 3/50MIN Patient Type Established Diagnoses Atrial fibrillation with rapid ventricular response I48.91 Bilateral pulmonary embolism I26.99 Bleeding from wound T14.8XXA Time Spent (min) 50
[2025-01-29] MEDS: ACETAMINOPHEN 325 MG TAB PO PRN (07:57)
[2025-01-29] MEDS: POTASSIUM CHLORIDE / WTR 10 MEQ/100 ML PLCT IV SCH (08:45)
[2025-01-29] MEDS: GABAPENTIN 100 MG CAP PO ONE (12:08)
[2025-01-29 12:09] LABS: ANTI-Xa, UFH(UnfractionatedHep 0.38 IU/ml (0.3-0.7)
[2025-01-29] MEDS: ACETAMINOPHEN 1,000 MG/100 ML VIAL IV PRN (12:12)
--- NOTE | 2025-01-29 14:54 | Hospitalist Progress Note ---
Date of Service January 29, 2025 Assessment & Plan (1) Acute hypoxemic respiratory failure: Plan: Acute hypoxemic, hypercapnic respiratory failure Acute pulmonary embolism--POA Acute metabolic encephalopathy--POA Suspected multifocal pneumonia secondary to aspiration H/O KARUNA on CPAP H/O SAH --Chest CTA:Acute PE involving all lobes bilaterally. Moderate to large clot burden. RV to LV ratio greater than 1.1 concerning for right heart strain. Depen dent consolidation in the lower lobes and lingula. Infection and/or atelectasis more likely than pulmonary infarct. --Venous Doppler:Left lower extremity DVT. No right-sided DVT. --ECHO: Left ventricular EF is normal. Right ventricle systolic function is normal. Borderline left atrial enlargement. Right atrium is moderately dilated. Right ventricular systolic pressure is elevated 50 to 60 mmHg. Mild aortic root dilatation. Inferior vena cava is mildly dilated. Moderate septal hypokinesis. Trace tricuspid regurgitation. 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 casing in line setter help --Continue IV heparin --Continue Zosyn>> will complete IV antibiotic course today Started on diet, aspiration precautions Advance diet as tolerated Continue BiPAP at bedtime Atrial fibrillation with RVR SVTs H/O SAH Given benefits > risks for anticoagulation, continue IV heparin for anticoagulation Continue IV Cardizem drip Home beta-blockers on hold Monitor and replete electrolytes as needed Appreciate cardiology input Plan to transition to oral medications as able Acute metabolic encephalopathy Delirium Reorient frequently Continue thiamine for now Melatonin as needed for insomnia Delirium precautions Acute kidney injury Avoid nephrotoxic agents as able Monitor renal function Creatinine levels back to baseline B/L buttock varicosities/vascular malformations Monitor for any bleeding issues while on anticoagulation Hypothyroidism Thyroid nodules Incidental finding on CT --Neck CT:No definite stenosis of the neck arteries. Indeterminate thyroid nodules. A follow-up thyroid ultrasound could be obtained -- Normal TSH Continue levothyroxine Follow-up as outpatient Microscopic hematuria Monitor CBC May need further evaluation as outpatient Chronic diastolic heart failure Valvular heart disease (moderate TR/mild AR) Echo as above Monitor volume status closely Lisinopril, Jardiance, beta-arlin, diuretics on hold DM II HbA1c 6.7 Hold p.o. medications Monitor blood glucose levels Continue insulin per protocol Other chronic conditions: Hypertension Hyperlipidemia PVD GERD Chronic anemia Past alcohol abuse Resume home gabapentin DVT Px: IV Heparin Code Status Full code Disposition PT OT prior to discharge Admission and Anticipated Discharge Date Admission Date: January 24, 2025 Subjective Patient is seen and examined at bedside Remains delirious requiring frequent reorientation Sitter at bedside Complains of bilateral leg pain Heart rate is well-controlled on monitor On IV Cardizem, heparin drip Review of Systems Review of Systems: All systems reviewed & are unremarkable except as noted in Subjective Physical Exam Physical Exam: Physical Exam: Vitals signs as noted above General Appearance:Obese, no apparent distress Head: normocephalic, Atraumatic Eyes: normal inspection, EOMI Neck: supple, Trachea midline Respiratory/Chest: Decreased breath sounds, CTA, No accessory muscle use Cardiovascular: Irregularly irregular, tachycardic, No murmur Abdomen/GI:Soft, Non tender, protuberant, Bowel sounds present Extremities/Musculoskeletal:normal inspection, + B/L chronic venous stasis changes Neurologic/Psych: Alert, awake, oriented x 2, follows simple commands, grossly no focal deficits Skin: normal color, warm Results & Data Results & Data Vital Signs (Past 12 Hours) Vital Signs Temp Pulse Pulse Resp BP BP Pulse Ox 01/29/25 11:35 37.2 C 72 18 122/65 95 01/29/25 11:09 37.1 C 72 22 95 01/29/25 10:00 36.8 C 92 H 25 H 93 01/29/25 09:00 37.0 C 119 H 18 96 01/29/25 08:15 37.1 C 71 22 90 01/29/25 08:00 72 01/29/25 07:30 01/29/25 07:12 37.3 C 81 17 93 01/29/25 07:11 141/89 H 01/29/25 07:11 141/89 H 01/29/25 07:09 37.3 C 95 H 23 93 01/29/25 07:03 37.3 C 78 20 141/89 H 92 01/29/25 06:21 37.3 C 107 H 27 H 92 01/29/25 05:00 37.2 C 85 16 89 L 01/29/25 04:09 37.2 C 87 21 93 01/29/25 03:06 37.2 C 85 21 91 01/29/25 03:02 37.2 C 88 22 139/66 93 O2 Del Method 01/29/25 11:35 Room Air 01/29/25 11:09 01/29/25 10:00 01/29/25 09:00 01/29/25 08:15 01/29/25 08:00 01/29/25 07:30 Room Air 01/29/25 07:12 01/29/25 07:11 01/29/25 07:11 01/29/25 07:09 01/29/25 07:03 01/29/25 06:21 01/29/25 05:00 01/29/25 04:09 01/29/25 03:06 01/29/25 03:02 Room Air Laboratory Results BMP 01/29/25 04:03 Sodium 142 Potassium 3.6 Chloride 108 H Carbon Dioxide 27 BUN 10 Creatinine 1.04 Glucose 163 H Calcium 8.7
[2025-01-29] MEDS: GABAPENTIN 100 MG CAP PO SCH (21:03)
[2025-01-29] MEDS: MELATONIN 3 MG TAB PO SCH (21:09)
[2025-01-30 05:44] LABS: Hematocrit (blood only) 30.2 % (42.0-52.0); Hemoglobin 9.5 g/dl (14.0-18.0); Mean Corpuscular Hemoglobin 26.8 pg (25.0-34.0); Mean Corpuscular Volume 85.1 fL (80.0-100.0); Platelet Count 232 K/uL (130-400); RDW Standard Deviation 48.5 fL (36.4-46.3); Red Blood Count 3.55 M/uL (4.70-6.10); White Blood Count 7.22 K/ul (4.8-10.8)
[2025-01-30 06:00] LABS: Anion Gap 6.0 (3-11); Blood Urea Nitrogen 10.0 mg/dl (6-23); Calcium 8.7 mg/dl (8.6-10.3); Carbon Dioxide 26.0 mmol/L (21-32); Chloride 109.0 mmol/L (98-107); Creatinine Clr Calc Pharmacy 73.9 ml/min; Glucose 171.0 mg/dl (70-99(Fasting)); Magnesium 2.1 mg/dl (1.7-2.4); Potassium 3.6 mmol/L (3.5-5.1); Sodium 141.0 mmol/L (136-145)
[2025-01-30 06:14] LABS: ANTI-Xa, UFH(UnfractionatedHep 0.44 IU/ml (0.3-0.7)
[2025-01-30] MEDS ORDERED: INSULIN ASPART PER UNIT CHARGE SC SCH (08:15)
[2025-01-30] MEDS: LANTUS PER UNIT CHARGE SQ SCH (09:56)
[2025-01-30] MEDS: INSULIN ASPART PER UNIT CHARGE SC SCH (11:49)
--- NOTE | 2025-01-30 15:58 | Cardiology Progress Note ---
Date of Service January 30, 2025 Assessment & Plan (1) Bilateral pulmonary embolism: (2) Atrial fibrillation with rapid ventricular response: (3) Bleeding from wound: (4) Acute encephalopathy: Plan: Continue heparin infusion Continue IV diltiazem. When able to tolerate oral medications, plan on transitioning back to metoprolol, with starting dose of metoprolol succinate 50 mg twice daily. Daniella Lin DO Admission and Anticipated Discharge Date Admission Date: January 24, 2025 Subjective Patient seen cardiology follow-up. Resting comfortably. Still on one-to-one supervision due to issues with regards to his mentation. Still not taking oral medications. Telemetry reveals rate controlled atrial fibrillation in 70s. Physical Exam Constitutional: WD/WN, vitals as above Respiratory: Auscultation: + diminished lung sounds (Mildly decreased breath sounds at the base); no crackles and no wheezes Cardiovascular: Rate/Rhythm: + irregularly irregular Heart Sounds: no murmur Extremities: no edema Gastrointestinal (Abdomen): normal bowel sounds, soft, nontender, no hepatosplenomegaly Neurologic: somnolent Results & Data Vital Signs (Past 12 Hours) Vital Signs Temp Pulse Pulse Resp BP BP Pulse Ox 01/30/25 15:43 37.4 C 75 16 133/66 91 01/30/25 14:17 106 H 01/30/25 12:35 01/30/25 11:18 36.7 C 71 16 93 01/30/25 10:45 36.7 C 71 21 95 01/30/25 09:00 36.9 C 72 19 94 01/30/25 08:49 136/73 01/30/25 08:00 01/30/25 08:00 37.0 C 74 20 95 01/30/25 08:00 73 01/30/25 07:00 37.1 C 77 23 95 01/30/25 06:03 37.2 C 73 24 96 01/30/25 05:00 37.3 C 74 22 93 01/30/25 04:03 37.4 C 80 25 H 95 O2 Del Method 01/30/25 15:43 Room Air 01/30/25 14:17 01/30/25 12:35 Room Air 01/30/25 11:18 01/30/25 10:45 01/30/25 09:00 01/30/25 08:49 01/30/25 08:00 Room Air 01/30/25 08:00 01/30/25 08:00 01/30/25 07:00 01/30/25 06:03 01/30/25 05:00 01/30/25 04:03 Coding Level of Care Code 48130 SUB INP/OBS CARE 2/35MIN Diagnoses Bilateral pulmonary embolism I26.99 Atrial fibrillation with rapid ventricular response I48.91 Bleeding from wound T14.8XXA Acute encephalopathy G93.40
--- NOTE | 2025-01-30 17:33 | Hospitalist Progress Note ---
Date of Service January 30, 2025 Assessment & Plan (1) Acute hypoxemic respiratory failure: Plan: Acute hypoxemic, hypercapnic respiratory failure Acute pulmonary embolism--POA Acute metabolic encephalopathy--POA Suspected multifocal pneumonia secondary to aspiration H/O KARUNA on CPAP H/O SAH --Chest CTA:Acute PE involving all lobes bilaterally. Moderate to large clot burden. RV to LV ratio greater than 1.1 concerning for right heart strain. Depen dent consolidation in the lower lobes and lingula. Infection and/or atelectasis more likely than pulmonary infarct. --Venous Doppler:Left lower extremity DVT. No right-sided DVT. --ECHO: Left ventricular EF is normal. Right ventricle systolic function is normal. Borderline left atrial enlargement. Right atrium is moderately dilated. Right ventricular systolic pressure is elevated 50 to 60 mmHg. Mild aortic root dilatation. Inferior vena cava is mildly dilated. Moderate septal hypokinesis. Trace tricuspid regurgitation. 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 case briefer help --Continue IV heparin --Completed IV Zosyn course Advance diet as tolerated Continue BiPAP at bedtime Saturating low 90s on room air Plan to transition to oral anticoagulation as able Hold sedating medications as able Atrial fibrillation with RVR SVTs H/O SAH Given benefits > risks for anticoagulation, continue IV heparin for anticoagulation Continue IV Cardizem drip Home beta-blockers on hold Monitor and replete electrolytes as needed Appreciate cardiology input Plan to transition to oral medications as able Cardiology following Acute metabolic encephalopathy Delirium Reorient frequently Continue thiamine Melatonin as needed for insomnia Delirium precautions Acute kidney injury Avoid nephrotoxic agents as able Monitor renal function JERSON resolved B/L buttock varicosities/vascular malformations Monitor for any bleeding issues while on anticoagulation Hypothyroidism Thyroid nodules Incidental finding on CT --Neck CT:No definite stenosis of the neck arteries. Indeterminate thyroid nodules. A follow-up thyroid ultrasound could be obtained -- Normal TSH Continue levothyroxine Follow-up as outpatient Microscopic hematuria Monitor CBC May need further evaluation as outpatient Chronic diastolic heart failure Valvular heart disease (moderate TR/mild AR) Echo as above Monitor volume status closely Lisinopril, Jardiance, beta-arlin, diuretics on hold DM II HbA1c 6.7 Hold p.o. medications Monitor blood glucose levels Continue insulin per protocol Other chronic conditions: Hypertension Hyperlipidemia PVD GERD Chronic anemia Past alcohol abuse Resume home gabapentin DVT Px: IV Heparin Code Status Full code Disposition PT OT prior to discharge Admission and Anticipated Discharge Date Admission Date: January 24, 2025 Subjective Patient is seen and examined at bedside Drowsy during my encounter this morning Patient received Zyprexa overnight for agitation Unable to obtain much history No distress on exam Heart rate is controlled on monitor No bleeding issues while on IV heparin Review of Systems Review of Systems: All systems reviewed & are unremarkable except as noted in Subjective Physical Exam Physical Exam: Physical Exam: Vitals signs as noted above General Appearance:Obese, no apparent distress Head: normocephalic, Atraumatic Eyes: normal inspection, EOMI Neck: supple, Trachea midline Respiratory/Chest: Decreased breath sounds, CTA, No accessory muscle use Cardiovascular: Irregularly irregular, tachycardic, No murmur Abdomen/GI:Soft, Non tender, protuberant, Bowel sounds present Extremities/Musculoskeletal:normal inspection, + B/L chronic venous stasis changes Neurologic/Psych: Alert, awake, oriented x 2, follows simple commands, grossly no focal deficits Skin: normal color, warm Results & Data Results & Data Vital Signs (Past 12 Hours) Vital Signs Temp Pulse Pulse Resp BP BP Pulse Ox 01/30/25 15:43 37.4 C 75 16 133/66 91 01/30/25 14:17 106 H 01/30/25 12:35 01/30/25 11:18 36.7 C 71 16 93 01/30/25 10:45 36.7 C 71 21 95 01/30/25 09:00 36.9 C 72 19 94 01/30/25 08:49 136/73 01/30/25 08:00 01/30/25 08:00 37.0 C 74 20 95 01/30/25 08:00 73 01/30/25 07:00 37.1 C 77 23 95 01/30/25 06:03 37.2 C 73 24 96 O2 Del Method 01/30/25 15:43 Room Air 01/30/25 14:17 01/30/25 12:35 Room Air 01/30/25 11:18 01/30/25 10:45 01/30/25 09:00 01/30/25 08:49 01/30/25 08:00 Room Air 01/30/25 08:00 01/30/25 08:00 01/30/25 07:00 01/30/25 06:03 Laboratory Results Short CBC 01/30/25 Range/Units 04:57 WBC 7.22 (4.8-10.8) K/ul Hgb 9.5 L (14.0-18.0) g/dl Hct 30.2 L (42.0-52.0) % Plt Count 232 (130-400) K/uL BMP 01/30/25 04:57 Sodium 141 Potassium 3.6 Chloride 109 H Carbon Dioxide 26 BUN 10 Creatinine 1.05 Glucose 171 H Calcium 8.7
[2025-01-30] MEDS: MELATONIN 3 MG TAB PO PRN (21:13)
[2025-01-31 07:09] LABS: Anion Gap 5.0 (3-11); Blood Urea Nitrogen 9.0 mg/dl (6-23); Calcium 8.6 mg/dl (8.6-10.3); Carbon Dioxide 27.0 mmol/L (21-32); Chloride 109.0 mmol/L (98-107); Creatinine Clr Calc Pharmacy 88.7 ml/min; Glucose 170.0 mg/dl (70-99(Fasting)); Iron 18.0 mcg/dl (35-175); Magnesium 2.0 mg/dl (1.7-2.4); Potassium 3.9 mmol/L (3.5-5.1); Sodium 141.0 mmol/L (136-145); Transferrin 163.0 mg/dl (200-360)
[2025-01-31 07:16] LABS: ANTI-Xa, UFH(UnfractionatedHep 0.64 IU/ml (0.3-0.7)
[2025-01-31 07:28] LABS: Ferritin 57.9 ng/ml (8-388)
[2025-01-31 07:30] LABS: Folate (Folic Acid),Ser orPlas 7.19 ng/ml (>5.38)
[2025-01-31 07:31] LABS: Vitamin B12 625.0 pg/ml (180-914)
[2025-01-31] MEDS: THIAMINE HCL 100 MG TAB PO SCH (08:22)
[2025-01-31] MEDS: FERROUS SULFATE 325 MG TAB PO SCH (09:43)
[2025-01-31] MEDS: METOPROLOL TARTRATE 1 MG/ML VIAL IV STA (14:31)
[2025-01-31] MEDS: METOPROLOL SUCC 50MG EXT REL TAB PO SCH (14:36)
--- NOTE | 2025-01-31 15:12 | Cardiology Progress Note ---
Date of Service January 31, 2025 Assessment & Plan (1) Bilateral pulmonary embolism: (2) Atrial fibrillation with rapid ventricular response: (3) Bleeding from wound: (4) Acute encephalopathy: Plan: Assessment: 74 year old male admitted with acute respiratory failure after being found at his place of residence unresponsive with a blood glucose level of 32mg/dL. Patient was initially intubated for airway protection out of concern for possible aspiration. CT imaging revealed bilateral pulmonary emboli with large clot burden and additional concern for RV strain. EKG demonstrated Atrial fibrillation (known history) and patient was placed on a Cardizem gtt for rate control. Heparin gtt was started due to clot burden. Plan: Bilateral Pulmonary emboli: -as noted on CT chest with elevated clot burden. patient carries a history of like permanent atrial fibrillation; however, has been intolerant of AC therapy (previously on Pradaxa) in the past due to recurrent bleeding issues related to bilateral buttock varicosities/vascular malformations with prior intervention by general surgery. -Continue heparin infusion with close monitoring of labs as well as for any vasiliy bleeding. Atrial fibrillation with RVR -review of telemetry shows A-fib/flutter rates 60-100bpm. no acute events overnight. -confirmed with nursing staff that patient is now tolerating PO intake. Will stop Cardizem gtt and start Metoprolol succinate 50mg PO BID. Close monitoring on telemetry. -Euvolemic on exam Bleeding from wound: -known history of bleeding/anemia associated with a sacral wound. will require close monitoring. -check CBC in AM Case has been discussed with Dr. Whiteside. Further recommendations regarding plan of care as per his assessment. I spent a total of 35 minutes on the date of service in preparation, delivery, documentation of the care provided to the patient excluding any time spent in the performance of separately billed services. MONICA Dupont [facility] Cardiology [facility] Plan Full assessment plan as outlined by advanced provider as above. Care and management discussed and endorsed. Now taking p.o. without difficulty will discontinue IV diltiazem and begin metoprolol succinate 50 mg twice per day. Patient has anticoagulation indications for atrial fibrillation as well as bilateral pulmonary emboli. Admission and Anticipated Discharge Date Admission Date: January 24, 2025 Subjective 01/31/2025: Patient seen and examined in follow up today. Feeling fair. Patient's mentation status remains guarded per discussion with nursing staff; however, patient answers yes and no to questions. Offers no acute concerns. Labs, vitals, diagnostics, telemetry and documentation reviewed. Telemetry reviewed showing A-fib/flutter rates 60-100bpm. No acute events overnight. On Cardizem gtt overnight. Patient's nurse in room at time of exam and confirms that patient is now tolerating PO intake without concern. Review of Systems Review of Systems: All systems reviewed & are unremarkable except as noted in HPI & below limited ability to obtain ROS due to mental status, mostly "yes and no" reply Physical Exam Constitutional: well developed and well nourished; no acute distress and not ill appearing Neck: normal visual inspection and trachea midline Respiratory: normal respiratory effort, lungs clear to auscultation Cardiovascular: Rate/Rhythm: + irregularly irregular Heart Sounds: normal S1 and normal S2; no murmur Vessels: no JVD Extremities: no edema Skin: no rashes, warm and dry Psychiatric: Orientation: alert and oriented to person Results & Data Vital Signs (Past 12 Hours) Vital Signs Temp Pulse Pulse Resp BP BP Pulse Ox 01/31/25 14:54 82 01/31/25 14:49 87 01/31/25 14:31 110 H 143/112 H 01/31/25 13:39 01/31/25 11:07 36.9 C 72 18 137/83 95 01/31/25 08:00 71 01/31/25 07:39 36.6 C 69 18 141/85 H 95 O2 Del Method 01/31/25 14:54 01/31/25 14:49 01/31/25 14:31 01/31/25 13:39 Room Air 01/31/25 11:07 Room Air 01/31/25 08:00 01/31/25 07:39 Room Air Laboratory Results Comprehensive Metabolic Panel 01/31/25 Range/Units 05:58 Sodium 141 (136-145) mmol/L Potassium 3.9 (3.5-5.1) mmol/L Chloride 109 H (98-107) mmol/L Carbon Dioxide 27 (21-32) mmol/L BUN 9 (6-23) mg/dl Creatinine 0.88 (0.6-1.4) mg/dl Glucose 170 H (70-99(Fasting)) mg/dl Calcium 8.6 (8.6-10.3) mg/dl Intake and Output 01/31/25 01/31/25 01/31/25 06:59 14:59 22:59 Intake Total 1575.000 / 1575.000 Output Total 275 / 1251 1650 / 1650 Balance -275 / -401.000 -75.000 / -75.000 Intake: IV 625.000 / 625.000 Heparin 07783 Unit/500 ml D5w 500.000 / 500.000 25,000 units In 500 ml @ 1,700 UNITS/HR 34 mls/hr IV .[id number] FRANCY Rx#:[id number] dilTIAZem HCL 125 mg In 125.000 / 125.000 Dextrose 5% 100 ml @ 10 MG/HR 10 mls/hr IV .[id number] FRANCY Rx#: [id number] Oral 950 / 950 Output: Urine Amount (Catheter) 275 / 1250 1650 / 1650 Temp Sensing Daniels 275 / 1250 1650 / 1650 Other: Weight 116.9 kg Weight Measurement Method Built in [facility] PG Care Time/CCT Total # of Minutes Spent Total Time Spent with Patient: Total time spent is greater than 50% in coordination of care (as documented) at patient's floor/unit and/or counseling patient: Coding Level of Care Code 50051 SUB INP/OBS CARE 3/50MIN Diagnoses Bilateral pulmonary embolism I26.99 Atrial fibrillation with rapid ventricular response I48.91 Bleeding from wound T14.8XXA Acute encephalopathy G93.40 Time Spent (min) 35
--- NOTE | 2025-01-31 15:28 | Hospitalist Progress Note ---
Date of Service January 31, 2025 Assessment & Plan (1) Acute hypoxemic respiratory failure: Plan: Acute hypoxemic, hypercapnic respiratory failure Acute pulmonary embolism--POA Acute metabolic encephalopathy--POA Suspected multifocal pneumonia secondary to aspiration H/O KARUNA on CPAP H/O SAH --Chest CTA:Acute PE involving all lobes bilaterally. Moderate to large clot burden. RV to LV ratio greater than 1.1 concerning for right heart strain. Depen dent consolidation in the lower lobes and lingula. Infection and/or atelectasis more likely than pulmonary infarct. --Venous Doppler:Left lower extremity DVT. No right-sided DVT. --ECHO: Left ventricular EF is normal. Right ventricle systolic function is normal. Borderline left atrial enlargement. Right atrium is moderately dilated. Right ventricular systolic pressure is elevated 50 to 60 mmHg. Mild aortic root dilatation. Inferior vena cava is mildly dilated. Moderate septal hypokinesis. Trace tricuspid regurgitation. 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 regulator assembler help --Continue IV heparin --Completed IV Zosyn course Continue BiPAP at bedtime Tolerating regular diet Plan to transition to oral anticoagulation as able/long-term benefits versus risks of anticoagulation to be determined Atrial fibrillation with RVR SVTs H/O SAH Given benefits > risks for anticoagulation, continue IV heparin for anticoagulation Continue IV Cardizem drip Home beta-blockers on hold Monitor and replete electrolytes as needed Appreciate cardiology input Plan to transition to oral medications as able Cardiology following Acute metabolic encephalopathy Delirium Reorient frequently Continue thiamine Melatonin as needed for insomnia Delirium precautions Mental status much improved Acute kidney injury Avoid nephrotoxic agents as able Monitor renal function JERSON resolved B/L buttock varicosities/vascular malformations Monitor for any bleeding issues while on anticoagulation Hypothyroidism Thyroid nodules Incidental finding on CT --Neck CT:No definite stenosis of the neck arteries. Indeterminate thyroid nodules. A follow-up thyroid ultrasound could be obtained -- Normal TSH Continue levothyroxine Follow-up as outpatient Microscopic hematuria Monitor CBC May need further evaluation as outpatient Chronic diastolic heart failure Valvular heart disease (moderate TR/mild AR) Echo as above Monitor volume status closely Lisinopril, Jardiance, beta-arlin, diuretics on hold DM II HbA1c 6.7 Hold p.o. medications Monitor blood glucose levels Continue insulin per protocol Other chronic conditions: Hypertension Hyperlipidemia PVD GERD Chronic anemia Past alcohol abuse Resume home medication as when appropriate DVT Px: IV Heparin Code Status Full code Disposition Will need rehab placement when medically stable Admission and Anticipated Discharge Date Admission Date: January 24, 2025 Subjective Patient is seen and examined at bedside Alert, awake, oriented x 2 during my encounter Mental status seem to be much improved Tolerating current diet Was emotional when discussed regarding his family Offers no complaints today Saturating well on room air Review of Systems Review of Systems: All systems reviewed & are unremarkable except as noted in Subjective Physical Exam Physical Exam: Physical Exam: Vitals signs as noted above General Appearance:Obese, no apparent distress Head: normocephalic, Atraumatic Eyes: normal inspection, EOMI Neck: supple, Trachea midline Respiratory/Chest: Decreased breath sounds, CTA, No accessory muscle use Cardiovascular: Irregularly irregular, No murmur Abdomen/GI:Soft, Non tender, protuberant, Bowel sounds present Extremities/Musculoskeletal:normal inspection, + B/L chronic venous stasis changes Neurologic/Psych: Alert, awake, oriented x 2, grossly no focal deficits Skin: normal color, warm Results & Data Results & Data Vital Signs (Past 12 Hours) Vital Signs Temp Pulse Pulse Resp BP BP Pulse Ox 01/31/25 15:10 37.2 C 95 H 18 144/82 H 94 01/31/25 14:54 82 01/31/25 14:49 87 01/31/25 14:31 110 H 143/112 H 01/31/25 13:39 01/31/25 11:07 36.9 C 72 18 137/83 95 01/31/25 08:00 71 01/31/25 07:39 36.6 C 69 18 141/85 H 95 O2 Del Method 01/31/25 15:10 Room Air 01/31/25 14:54 01/31/25 14:49 01/31/25 14:31 01/31/25 13:39 Room Air 01/31/25 11:07 Room Air 01/31/25 08:00 01/31/25 07:39 Room Air Laboratory Results BMP 01/31/25 05:58 Sodium 141 Potassium 3.9 Chloride 109 H Carbon Dioxide 27 BUN 9 Creatinine 0.88 Glucose 170 H Calcium 8.6
--- NOTE | 2025-01-31 15:30 | Cardiology Progress Note ---
Date of Service January 31, 2025 Assessment & Plan (1) Bilateral pulmonary embolism: (2) Atrial fibrillation with rapid ventricular response: (3) Bleeding from wound: (4) Acute encephalopathy: Plan Recommend transitioning IV diltiazem to oral metoprolol succinate 50 mg twice p er day. Patient has anticoagulation indications to pulmonary embolus and atrial fibrillation Admission and Anticipated Discharge Date Admission Date: January 24, 2025 Subjective Patient seen. More alert than on prior descriptions per nursing staff. Able to take oral medication Results & Data Vital Signs (Past 12 Hours) Vital Signs Temp Pulse Pulse Resp BP Pulse Ox O2 Del Method 01/31/25 11:07 36.9 C 72 18 137/83 95 Room Air 01/31/25 08:00 71 01/31/25 07:39 36.6 C 69 18 141/85 H 95 Room Air 01/31/25 02:47 36.4 C L 71 26 H 138/74 95 Room Air PG Care Time/CCT Total # of Minutes Spent Total Time Spent with Patient: Total time spent is greater than 50% in coordination of care (as documented) at patient's floor/unit and/or counseling patient: Coding Level of Care Code 13044 SUB INP/OBS CARE 2/35MIN Diagnoses Bilateral pulmonary embolism I26.99 Atrial fibrillation with rapid ventricular response I48.91 Bleeding from wound T14.8XXA Acute encephalopathy G93.40
[2025-02-01 06:40] LABS: Hematocrit (blood only) 31.9 % (42.0-52.0); Hemoglobin 9.6 g/dl (14.0-18.0); Mean Corpuscular Hemoglobin 26.0 pg (25.0-34.0); Mean Corpuscular Volume 86.4 fL (80.0-100.0); Platelet Count 216 K/uL (130-400); RDW Standard Deviation 49.4 fL (36.4-46.3); Red Blood Count 3.69 M/uL (4.70-6.10); White Blood Count 6.36 K/ul (4.8-10.8)
[2025-02-01 06:59] LABS: Anion Gap 4.0 (3-11); Blood Urea Nitrogen 12.0 mg/dl (6-23); Calcium 8.6 mg/dl (8.6-10.3); Carbon Dioxide 27.0 mmol/L (21-32); Chloride 111.0 mmol/L (98-107); Creatinine Clr Calc Pharmacy 85.6 ml/min; Glucose 180.0 mg/dl (70-99(Fasting)); Magnesium 2.0 mg/dl (1.7-2.4); Potassium 3.7 mmol/L (3.5-5.1); Sodium 142.0 mmol/L (136-145)
[2025-02-01] MEDS: METOPROLOL SUCC 50MG EXT REL TAB PO SCH (08:52)
[2025-02-01 10:05] LABS: ANTI-Xa, UFH(UnfractionatedHep 0.66 IU/ml (0.3-0.7)
--- NOTE | 2025-02-01 13:04 | Hospitalist Progress Note ---
Date of Service February 01, 2025 Assessment & Plan (1) Acute hypoxemic respiratory failure: Plan: Acute hypoxemic, hypercapnic respiratory failure( required intubation on admission) Acute pulmonary embolism--POA Acute metabolic encephalopathy--POA Suspected multifocal pneumonia secondary to aspiration H/O KARUNA on CPAP H/O SAH --Chest CTA:Acute PE involving all lobes bilaterally. Moderate to large clot burden. RV to LV ratio greater than 1.1 concerning for right heart strain. Dependent consolidation in the lower lobes and lingula. Infection and/or atelectasis more likely than pulmonary infarct. --Venous Doppler:Left lower extremity DVT. No right-sided DVT. --ECHO: Left ventricular EF is normal. Right ventricle systolic function is normal. Borderline left atrial enlargement. Right atrium is moderately dilated. Right ventricular systolic pressure is elevated 50 to 60 mmHg. Mild aortic root dilatation. Inferior vena cava is mildly dilated. Moderate septal hypokinesis. Trace tricuspid regurgitation. 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 electrical superintendent help --Continue IV heparin --Completed IV Zosyn course Continue BiPAP at bedtime Tolerating regular diet Plan to transition to oral anticoagulation as able/long-term benefits versus risks of anticoagulation to be determined Remains clinically stable and denies any significant symptoms except weakness No evidence of bleeding on intravenous heparin Will need to continue oral anticoagulation given pulmonary embolism and also atrial fibrillation Will start Eliquis from this evening Atrial fibrillation with RVR SVTs H/O SAH Given benefits > risks for anticoagulation, continue IV heparin for anticoagulation Continue IV Cardizem drip Home beta-blockers on hold Monitor and replete electrolytes as needed Appreciate cardiology input and recommendation Cardizem drip has been discontinued and the patient has been on metoprolol succinate 50 mg twice daily Remains tachycardic at 106/min- awaiting further recommendation from the gas pumper Acute metabolic encephalopathy Delirium Continue thiamine Melatonin as needed for insomnia Delirium precautions Mental status much improved- and seems to be at his baseline Acute kidney injury Avoid nephrotoxic agents as able Monitor renal function JERSON resolved B/L buttock varicosities/vascular malformations Monitor for any bleeding issues while on anticoagulation No evidence of bleeding from the varicosities on intravenous heparin Hypothyroidism Thyroid nodules Incidental finding on CT --Neck CT:No definite stenosis of the neck arteries. Indeterminate thyroid nodules. A follow-up thyroid ultrasound could be obtained -- Normal TSH Continue levothyroxine Follow-up as outpatient Microscopic hematuria Monitor CBC May need further evaluation as outpatient No more hematuria Chronic diastolic heart failure Valvular heart disease (moderate TR/mild AR) Echo as above Monitor volume status closely Lisinopril, Jardiance, diuretics on hold DM II HbA1c 6.7 Hold p.o. medications Monitor blood glucose levels Continue insulin per protocol Other chronic conditions: Hypertension Hyperlipidemia PVD GERD Chronic anemia Past alcohol abuse Resume home medication as when appropriate DVT Px: IV Heparin Code Status Full code Disposition Will need rehab placement when medically stable Admission and Anticipated Discharge Date Admission Date: January 24, 2025 Subjective 02/01/2025 The patient was seen and examined in telemetry unit He has been stable denies any significant symptoms except weakness He does not have any chest pain, palpitation or shortness of breath at rest He denies any other significant symptoms Review of Systems Review of Systems: All systems reviewed and are unremarkable except as noted below Physical Exam Physical Exam: Lying in bed without any acute distress Constitutional: well developed, well nourished, + ill appearing and + obese Eyes: PERRL, conjunctivae normal, anicteric sclerae ENMT: external ear and nose normal, oropharynx normal Neck: trachea midline, no thyromegaly Respiratory: no respiratory distress Auscultation: + diminished lung sounds and + crackles ( minimal crackles at the bases) Cardiovascular: Rate/Rhythm: + tachycardic and + irregularly irregular Heart Sounds: normal S1 and normal S2; no murmur Extremities: no edema Gastrointestinal (Abdomen): Inspection/Auscultation: normal bowel sounds; abdomen not distended Percussion/Palpation: abdomen soft; abdomen nontender Musculoskeletal: no acute arthritis involving any of the joint Neurologic: normal touch/pain/proprioception and moves all extremities; no focal motor deficits Lymphatic: no cervical or axillary lymphadenopathy Results & Data Results & Data Vital Signs (Past 12 Hours) Vital Signs Temp Pulse Pulse Resp BP Pulse Ox O2 Del Method 02/01/25 11:02 36.8 C 106 H 19 136/85 96 Room Air 02/01/25 07:27 36.9 C 94 H 18 138/84 95 Room Air 02/01/25 05:56 85 02/01/25 04:00 37.0 C 88 23 131/92 92 Room Air Laboratory Results Short CBC 02/01/25 Range/Units 05:45 WBC 6.36 (4.8-10.8) K/ul Hgb 9.6 L (14.0-18.0) g/dl Hct 31.9 L (42.0-52.0) % Plt Count 216 (130-400) K/uL BMP 02/01/25 05:45 Sodium 142 Potassium 3.7 Chloride 111 H Carbon Dioxide 27 BUN 12 Creatinine 0.92 Glucose 180 H Calcium 8.6 Medications Administered Current Inpatient Medications Allopurinol ([facility]op[facility] 300 Mg Tab) [facility] [place] Stop: 02/24/25 08:59 Last Admin: 02/01/25 08:53 Dose: 300 mg Atorvastatin Calcium (Atorvastatin 40 Mg Tab) 40 mg NG QAM [facility] Stop: 02/24/25 08:59 Last Admin: 02/01/25 08:54 Dose: 40 mg Dextrose (Dextrose 50% 50 Ml Syringe) 25 - 50 ml IV UD PRN; Protocol PRN Reason: Hypoglycemia Protocol Stop: 02/23/25 21:30 Ferrous Sulfate (Ferrous Sulfate 325 Mg Tab) 325 mg PO QAM [facility] Stop: 03/02/25 08:59 Last Admin: 02/01/25 08:55 Dose: 325 mg Gabapentin (Gabapentin 100 Mg Cap) 100 mg PO TID [facility] Stop: 02/28/25 20:59 Last Admin: 02/01/25 08:53 Dose: 100 mg Glucagon (Glucagon For Inj 1 Mg Vial) 1 mg SQ UD PRN; Protocol PRN Reason: Hypoglycemia Protocol Stop: 02/23/25 21:30 Glucose (Glucose 40% Gel 15 Gm Tube) 15 - 30 gm PO UD PRN; Protocol PRN Reason: Hypoglycemia Protocol Stop: 02/23/25 21:30 Glucose (Glucose 10 Tab/Tube) 4 - 8 tab PO UD PRN; Protocol PRN Reason: Hypoglycemia Protocol Stop: 02/23/25 21:30 Heparin Sodium/Dextrose (Heparin 90898 Unit/500 Ml D5w) 25,000 units in 500 mls @ 34 mls/hr IV .[id number] [facility]; Protocol Stop: 02/23/25 22:29 Last Titration: 02/01/25 07:07 Dose: 1,700 units/hr, 34 mls/hr Insulin Aspart (Insulin Aspart Per Unit Charge) 0 units SC ACHS [facility] Stop: 03/01/25 10:59 Last Admin: 02/01/25 12:12 Dose: 4 units Insulin Glargine (Lantus Per Unit Charge) 5 units SQ BID [facility] Stop: 03/01/25 08:59 Last Admin: 02/01/25 08:51 Dose: 5 units Levothyroxine Sodium (Levothyroxine Sodium 75 Mcg Tablet) 75 mcg NG DAILYBB [facility] Stop: 02/24/25 06:29 Last Admin: 02/01/25 06:15 Dose: 75 mcg Melatonin (Melatonin 3 Mg Tab) 3 mg PO HS PRN PRN Reason: Sleep Stop: 03/01/25 20:59 Last Admin: 01/30/25 21:13 Dose: 3 mg Metoprolol Succinate (Metoprolol Succ 50mg Ext Rel Tab) 50 mg PO BID [facility] Stop: 03/03/25 08:59 Last Admin: 02/01/25 08:52 Dose: 50 mg Miconazole Nitrate (Miconazole Nitrate Powder 85 Gm) 1 appln EXT BID [facility] Stop: 02/24/25 20:59 Last Admin: 02/01/25 08:55 Dose: 1 appln Miscellaneous (Carbohydrates For Hypoglycemia ) 15 - 30 gm PO UD PRN PRN Reason: Hypoglycemia Protocol Stop: 02/23/25 21:30 Multi-Ingredient Cream (Eucerin Cr 120 Gm Jar) 1 appln EXT BID [facility] Stop: 02/24/25 20:59 Last Admin: 02/01/25 08:54 Dose: 1 appln Multivitamins/Minerals (Multi Vit W/Minerals Liquid 15 Ml Udc) 15 ml NG QAM [facility] Stop: 02/25/25 08:59 Last Admin: 02/01/25 08:55 Dose: 15 ml Olanzapine (Olanzapine 10 Mg/2.1 Ml Sdv) 2.5 mg IM Q8H PRN PRN Reason: Agitation Stop: 02/26/25 22:45 Pantoprazole Sodium (Pantoprazole 40 Mg Tab) 40 mg PO BID [facility] Stop: 02/28/25 20:59 Last Admin: 02/01/25 08:54 Dose: 40 mg Thiamine HCl (Thiamine Hcl 100 Mg Tab) 100 mg PO QAM [facility] Stop: 03/02/25 08:59 Last Admin: 02/01/25 08:55 Dose: 100 mg
[2025-02-02 06:44] LABS: Hematocrit (blood only) 31.3 % (42.0-52.0); Hemoglobin 9.7 g/dl (14.0-18.0); Immature Granulocytes # (auto) 0.06 K/uL (0.01-0.20); Immature Granulocytes % (auto) 0.9 %; Mean Corpuscular Hemoglobin 26.6 pg (25.0-34.0); Mean Corpuscular Volume 86.0 fL (80.0-100.0); Platelet Count 225 K/uL (130-400); RDW Standard Deviation 49.1 fL (36.4-46.3); Red Blood Count 3.64 M/uL (4.70-6.10); White Blood Count 6.88 K/ul (4.8-10.8)
[2025-02-02 07:00] LABS: Anion Gap 3.0 (3-11); Blood Urea Nitrogen 12.0 mg/dl (6-23); Calcium 8.7 mg/dl (8.6-10.3); Carbon Dioxide 26.0 mmol/L (21-32); Chloride 111.0 mmol/L (98-107); Creatinine Clr Calc Pharmacy 84.9 ml/min; Glucose 185.0 mg/dl (70-99(Fasting)); Magnesium 1.8 mg/dl (1.7-2.4); Potassium 3.8 mmol/L (3.5-5.1); Sodium 140.0 mmol/L (136-145)
[2025-02-02 07:11] LABS: ANTI-Xa, UFH(UnfractionatedHep 0.61 IU/ml (0.3-0.7)
[2025-02-02] MEDS ORDERED: POTASSIUM PHOS 3 MMOL/1 ML INFUSION IV STA (07:39)
[2025-02-02] MEDS: POTASSIUM PHOSPHATE 15 MMOL in SODIUM CHLORIDE 0.9% 250 ML IV ONE (08:28)
[2025-02-02] MEDS: APIXABAN 5 MG TABLET PO SCH (08:28)
--- NOTE | 2025-02-02 12:37 | Hospitalist Progress Note ---
Date of Service February 02, 2025 Assessment & Plan (1) Acute hypoxemic respiratory failure: Plan: Acute hypoxemic, hypercapnic respiratory failure( required intubation on admission) Acute pulmonary embolism--POA Acute metabolic encephalopathy--POA Suspected multifocal pneumonia secondary to aspiration H/O KARUNA on CPAP H/O SAH --Chest CTA:Acute PE involving all lobes bilaterally. Moderate to large clot burden. RV to LV ratio greater than 1.1 concerning for right heart strain. Dependent consolidation in the lower lobes and lingula. Infection and/or atelectasis more likely than pulmonary infarct. --Venous Doppler:Left lower extremity DVT. No right-sided DVT. --ECHO: Left ventricular EF is normal. Right ventricle systolic function is normal. Borderline left atrial enlargement. Right atrium is moderately dilated. Right ventricular systolic pressure is elevated 50 to 60 mmHg. Mild aortic root dilatation. Inferior vena cava is mildly dilated. Moderate septal hypokinesis. Trace tricuspid regurgitation. 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 marble setter help --Continue IV heparin --Completed IV Zosyn course Continue BiPAP at bedtime Tolerating regular diet Plan to transition to oral anticoagulation as able/long-term benefits versus risks of anticoagulation to be determined Remains clinically stable and denies any significant symptoms except weakness No evidence of bleeding on intravenous heparin Will need to continue oral anticoagulation given pulmonary embolism and also atrial fibrillation Remains medically stable and no evidence of bleeding on intravenous heparin Discussed with the son in detail about the pros and cons of anticoagulation and the patient was started with Eliquis from today 10 mg twice daily for 14 doses and then 5 mg twice daily thereafter to continue Atrial fibrillation with RVR SVTs H/O SAH Given benefits > risks for anticoagulation, continue IV heparin for anticoagulation Continue IV Cardizem drip Home beta-blockers on hold Monitor and replete electrolytes as needed Appreciate cardiology input and recommendation Cardizem drip has been discontinued and the patient has been on metoprolol succinate 50 mg twice daily Remains tachycardic at 106/min- awaiting further recommendation from the missile mechanic His heart rate seems to be stable at around 96 today and denies any cardiac symptoms Acute metabolic encephalopathy Delirium Continue thiamine Melatonin as needed for insomnia Delirium precautions Mental status much improved- and seems to be at his baseline No more delirium Acute kidney injury Avoid nephrotoxic agents as able Monitor renal function JERSON resolved B/L buttock varicosities/vascular malformations Monitor for any bleeding issues while on anticoagulation No evidence of bleeding from the varicosities on intravenous heparin Hypothyroidism Thyroid nodules Incidental finding on CT --Neck CT:No definite stenosis of the neck arteries. Indeterminate thyroid nodules. A follow-up thyroid ultrasound could be obtained -- Normal TSH Continue levothyroxine Follow-up as outpatient Microscopic hematuria Monitor CBC May need further evaluation as outpatient No more hematuria Chronic diastolic heart failure Valvular heart disease (moderate TR/mild AR) Echo as above Monitor volume status closely Lisinopril, Jardiance, diuretics on hold Awaiting missile mechanic to evaluate for the need for lisinopril to control blood pressure DM II HbA1c 6.7 Hold p.o. medications Monitor blood glucose levels Continue insulin per protocol Other chronic conditions: Hypertension Hyperlipidemia PVD GERD Chronic anemia Past alcohol abuse Resume home medication as when appropriate DVT Px: IV Heparin Code Status Full code Disposition Will need rehab placement when medically stable Discussed with the son in detailawaiting placement and likely discharge on Thursday Continue PT and OT Admission and Anticipated Discharge Date Admission Date: January 24, 2025 Subjective 02/01/2025 The patient was seen and examined in telemetry unit He has been stable denies any significant symptoms except weakness He does not have any chest pain, palpitation or shortness of breath at rest He denies any other significant symptoms 02/02/2025 The patient was seen and examined in telemetry unit He has been stable but weak and lethargic Denies any significant symptoms Review of Systems Review of Systems: All systems reviewed and are unremarkable except as noted below Physical Exam Physical Exam: Lying in bed without any acute distress Constitutional: well developed, well nourished, + ill appearing and + obese Eyes: PERRL, conjunctivae normal, anicteric sclerae ENMT: external ear and nose normal, oropharynx normal Neck: trachea midline, no thyromegaly Respiratory: no respiratory distress Auscultation: + diminished lung sounds and + crackles ( minimal crackles at the bases) Cardiovascular: Rate/Rhythm: + tachycardic and + irregularly irregular Heart Sounds: normal S1 and normal S2; no murmur Extremities: no edema Gastrointestinal (Abdomen): Inspection/Auscultation: normal bowel sounds; abdomen not distended Percussion/Palpation: abdomen soft; abdomen nontender Musculoskeletal: No acute arthritis involving any of the joint Neurologic: normal touch/pain/proprioception and moves all extremities; no focal motor deficits Lymphatic: no cervical or axillary lymphadenopathy Results & Data Results & Data Vital Signs (Past 12 Hours) Vital Signs Temp Pulse Resp BP Pulse Ox O2 Del Method 02/02/25 11:11 Room Air 02/02/25 11:00 36.7 C 96 H 19 154/83 H 95 Room Air 02/02/25 07:46 37 C 70 16 151/102 H 90 Room Air 02/02/25 03:11 37.0 C 94 H 18 126/79 92 Room Air Laboratory Results Short CBC 02/02/25 Range/Units 06:05 WBC 6.88 (4.8-10.8) K/ul Hgb 9.7 L (14.0-18.0) g/dl Hct 31.3 L (42.0-52.0) % Plt Count 225 (130-400) K/uL BMP 02/02/25 06:05 Sodium 140 Potassium 3.8 Chloride 111 H Carbon Dioxide 26 BUN 12 Creatinine 0.92 Glucose 185 H Calcium 8.7 Medications Administered Current Inpatient Medications Allopurinol (Allopurinol 300 Mg Tab) 300 mg NG QAM [facility] Stop: 02/24/25 08:59 Last Admin: 02/02/25 08:28 Dose: 300 mg Apixaban (Apixaban 5 Mg Tablet) 10 mg PO BID [facility] Stop: 02/08/25 21:01 Last Admin: 02/02/25 08:28 Dose: 10 mg Atorvastatin Calcium (Atorvastatin 40 Mg Tab) 40 mg NG QAM [facility] Stop: 02/24/25 08:59 Last Admin: 02/02/25 08:29 Dose: 40 mg Dextrose (Dextrose 50% 50 Ml Syringe) 25 - 50 ml IV UD PRN; Protocol PRN Reason: Hypoglycemia Protocol Stop: 02/23/25 21:30 Ferrous Sulfate (Ferrous Sulfate 325 Mg Tab) 325 mg PO QAM [facility] Stop: 03/02/25 08:59 Last Admin: 02/02/25 08:29 Dose: 325 mg Gabapentin (Gabapentin 100 Mg Cap) 100 mg PO TID [facility] Stop: 02/28/25 20:59 Last Admin: 02/02/25 08:29 Dose: 100 mg Glucagon (Glucagon For Inj 1 Mg Vial) 1 mg SQ UD PRN; Protocol PRN Reason: Hypoglycemia Protocol Stop: 02/23/25 21:30 Glucose (Glucose 40% Gel 15 Gm Tube) 15 - 30 gm PO UD PRN; Protocol PRN Reason: Hypoglycemia Protocol Stop: 02/23/25 21:30 Glucose (Glucose 10 Tab/Tube) 4 - 8 tab PO UD PRN; Protocol PRN Reason: Hypoglycemia Protocol Stop: 02/23/25 21:30 Insulin Aspart (Insulin Aspart Per Unit Charge) 0 units SC ACHS [facility] Stop: 03/01/25 10:59 Last Admin: 02/02/25 08:30 Dose: 10 units Insulin Glargine (Lantus Per Unit Charge) 5 units SQ BID [facility] Stop: 03/01/25 08:59 Last Admin: 02/02/25 08:30 Dose: 5 units Levothyroxine Sodium (Levothyroxine Sodium 75 Mcg Tablet) 75 mcg NG DAILYBB [facility] Stop: 02/24/25 06:29 Last Admin: 02/02/25 05:59 Dose: 75 mcg Melatonin (Melatonin 3 Mg Tab) 3 mg PO HS PRN PRN Reason: Sleep Stop: 03/01/25 20:59 Last Admin: 01/30/25 21:13 Dose: 3 mg Metoprolol Succinate (Metoprolol Succ 50mg Ext Rel Tab) 50 mg PO BID [facility] Stop: 03/03/25 08:59 Last Admin: 02/02/25 08:29 Dose: 50 mg Miconazole Nitrate (Miconazole Nitrate Powder 85 Gm) 1 appln EXT BID [facility] Stop: 02/24/25 20:59 Last Admin: 02/02/25 08:29 Dose: 1 appln Miscellaneous (Carbohydrates For Hypoglycemia ) 15 - 30 gm PO UD PRN PRN Reason: Hypoglycemia Protocol Stop: 02/23/25 21:30 Multi-Ingredient Cream (Eucerin Cr 120 Gm Jar) 1 appln EXT BID [facility] Stop: 02/24/25 20:59 Last Admin: 02/02/25 08:29 Dose: 1 appln Multivitamins/Minerals (Multi Vit W/Minerals Liquid 15 Ml Udc) 15 ml NG QAM [facility] Stop: 02/25/25 08:59 Last Admin: 02/02/25 08:29 Dose: 15 ml Olanzapine (Olanzapine 10 Mg/2.1 Ml Sdv) 2.5 mg IM Q8H PRN PRN Reason: Agitation Stop: 02/26/25 22:45 Pantoprazole Sodium (Pantoprazole 40 Mg Tab) 40 mg PO BID [facility] Stop: 02/28/25 20:59 Last Admin: 02/02/25 08:29 Dose: 40 mg Thiamine HCl (Thiamine Hcl 100 Mg Tab) 100 mg PO QAM [facility] Stop: 03/02/25 08:59 Last Admin: 02/02/25 08:29 Dose: 100 mg
[2025-02-03 06:22] LABS: Hematocrit (blood only) 30.1 % (42.0-52.0); Hemoglobin 9.3 g/dl (14.0-18.0); Immature Granulocytes # (auto) 0.11 K/uL (0.01-0.20); Immature Granulocytes % (auto) 1.5 %; Mean Corpuscular Hemoglobin 26.5 pg (25.0-34.0); Mean Corpuscular Volume 85.8 fL (80.0-100.0); Platelet Count 214 K/uL (130-400); RDW Standard Deviation 49.0 fL (36.4-46.3); Red Blood Count 3.51 M/uL (4.70-6.10); White Blood Count 7.24 K/ul (4.8-10.8)
[2025-02-03 06:43] LABS: Anion Gap 2.0 (3-11); Blood Urea Nitrogen 12.0 mg/dl (6-23); Calcium 8.6 mg/dl (8.6-10.3); Carbon Dioxide 27.0 mmol/L (21-32); Chloride 111.0 mmol/L (98-107); Creatinine Clr Calc Pharmacy 75.1 ml/min; Glucose 180.0 mg/dl (70-99(Fasting)); Magnesium 1.7 mg/dl (1.7-2.4); Potassium 4.1 mmol/L (3.5-5.1); Sodium 140.0 mmol/L (136-145)
--- NOTE | 2025-02-03 14:23 | Hospitalist Progress Note ---
Date of Service February 03, 2025 Assessment & Plan (1) Acute hypoxemic respiratory failure: Plan: Acute hypoxemic, hypercapnic respiratory failure( required intubation on admission) Acute pulmonary embolism--POA Acute metabolic encephalopathy--POA Suspected multifocal pneumonia secondary to aspiration H/O KARUNA on CPAP H/O SAH --Chest CTA:Acute PE involving all lobes bilaterally. Moderate to large clot burden. RV to LV ratio greater than 1.1 concerning for right heart strain. Dependent consolidation in the lower lobes and lingula. Infection and/or atelectasis more likely than pulmonary infarct. --Venous Doppler:Left lower extremity DVT. No right-sided DVT. --ECHO: Left ventricular EF is normal. Right ventricle systolic function is normal. Borderline left atrial enlargement. Right atrium is moderately dilated. Right ventricular systolic pressure is elevated 50 to 60 mmHg. Mild aortic root dilatation. Inferior vena cava is mildly dilated. Moderate septal hypokinesis. Trace tricuspid regurgitation. 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 analyst geochemical prospecting help --Continue IV heparin --Completed IV Zosyn course Continue BiPAP at bedtime Tolerating regular diet Plan to transition to oral anticoagulation as able/long-term benefits versus risks of anticoagulation to be determined Remains clinically stable and denies any significant symptoms except weakness No evidence of bleeding on intravenous heparin Will need to continue oral anticoagulation given pulmonary embolism and also atrial fibrillation Remains medically stable and no evidence of bleeding on intravenous heparin Discussed with the son in detail about the pros and cons of anticoagulation and the patient was started with Eliquis from today 10 mg twice daily for 14 doses and then 5 mg twice daily thereafter to continue He has been stable on current medications and there is no evidence of bleeding He will be discharged to the facility on approval Atrial fibrillation with RVR SVTs H/O SAH Given benefits > risks for anticoagulation, continue IV heparin for anticoagulation Continue IV Cardizem drip Home beta-blockers on hold Monitor and replete electrolytes as needed Appreciate cardiology input and recommendation Cardizem drip has been discontinued and the patient has been on metoprolol succinate 50 mg twice daily Remains tachycardic at 106/min- awaiting further recommendation from the lighting engineering technician His heart rate seems to be stable at around 96 today and denies any cardiac symptoms Heart rate remains mildly elevated at 109 without any symptoms Acute metabolic encephalopathy Delirium Continue thiamine Melatonin as needed for insomnia Delirium precautions Mental status much improved- and seems to be at his baseline No more delirium and he seems to be at his baseline Acute kidney injury Avoid nephrotoxic agents as able Monitor renal function JERSON resolved B/L buttock varicosities/vascular malformations Monitor for any bleeding issues while on anticoagulation No evidence of bleeding from the varicosities on intravenous heparin No evidence of bleeding from the varicosities with Eliquis Hypothyroidism Thyroid nodules Incidental finding on CT --Neck CT:No definite stenosis of the neck arteries. Indeterminate thyroid nodules. A follow-up thyroid ultrasound could be obtained -- Normal TSH Continue levothyroxine Follow-up as outpatient Microscopic hematuria Monitor CBC May need further evaluation as outpatient No more hematuria Chronic diastolic heart failure Valvular heart disease (moderate TR/mild AR) Echo as above Monitor volume status closely Lisinopril, Jardiance, diuretics on hold Awaiting lighting engineering technician to evaluate for the need for lisinopril to control blood pressure DM II HbA1c 6.7 Hold p.o. medications Monitor blood glucose levels Continue insulin per protocol Other chronic conditions: Hypertension Hyperlipidemia PVD GERD Chronic anemia Past alcohol abuse Resume home medication as when appropriate DVT Px: IV Heparin Code Status Full code Disposition Will need rehab placement when medically stable Discussed with the son in detailawaiting placement and likely discharge on Thursday Continue PT and OT -recommending rehab and awaiting placement Admission and Anticipated Discharge Date Admission Date: January 24, 2025 Subjective 02/01/2025 The patient was seen and examined in telemetry unit He has been stable denies any significant symptoms except weakness He does not have any chest pain, palpitation or shortness of breath at rest He denies any other significant symptoms 02/02/2025 The patient was seen and examined in telemetry unit He has been stable but weak and lethargic Denies any significant symptoms 02/03/2025 The patient was seen and examined in telemetry unit He has been feeling much better and denies any significant symptoms Awaiting placement Review of Systems Review of Systems: All systems reviewed and are unremarkable except as noted below Physical Exam Physical Exam: Lying in bed without any acute distress Constitutional: well developed, well nourished, + ill appearing and + obese Eyes: PERRL, conjunctivae normal, anicteric sclerae ENMT: external ear and nose normal, oropharynx normal Neck: trachea midline, no thyromegaly Respiratory: no respiratory distress Auscultation: + diminished lung sounds and + crackles ( minimal crackles at the bases) Cardiovascular: Rate/Rhythm: + tachycardic and + irregularly irregular Heart Sounds: normal S1 and normal S2; no murmur Extremities: no edema Gastrointestinal (Abdomen): Inspection/Auscultation: normal bowel sounds; abdomen not distended Percussion/Palpation: abdomen soft; abdomen nontender Neurologic: normal touch/pain/proprioception and moves all extremities; no focal motor deficits Lymphatic: no cervical or axillary lymphadenopathy Results & Data Results & Data Vital Signs (Past 12 Hours) Vital Signs Temp Pulse Pulse Resp BP Pulse Ox O2 Del Method 02/03/25 11:03 36.8 C 109 H 15 132/89 95 Room Air 02/03/25 10:00 100 H 02/03/25 07:53 36.5 C 87 15 131/87 98 Room Air 02/03/25 07:30 Room Air 02/03/25 03:45 36.6 C 88 17 125/94 97 Room Air Laboratory Results Short CBC 02/03/25 Range/Units 05:59 WBC 7.24 (4.8-10.8) K/ul Hgb 9.3 L (14.0-18.0) g/dl Hct 30.1 L (42.0-52.0) % Plt Count 214 (130-400) K/uL BMP 02/03/25 05:59 Sodium 140 Potassium 4.1 Chloride 111 H Carbon Dioxide 27 BUN 12 Creatinine 1.04 Glucose 180 H Calcium 8.6 Medications Administered Current Inpatient Medications Allopurinol (Allopurinol 300 Mg Tab) 300 mg NG QAM FRANCY Stop: 02/24/25 08:59 Last Admin: 02/03/25 08:38 Dose: 300 mg Apixaban (Apixaban 5 Mg Tablet) 10 mg PO BID FRANCY Stop: 02/08/25 21:01 Last Admin: 02/03/25 08:38 Dose: 10 mg Atorvastatin Calcium (Atorvastatin 40 Mg Tab) 40 mg NG QAM FRANCY Stop: 02/24/25 08:59 Last Admin: 02/03/25 08:38 Dose: 40 mg Dextrose (Dextrose 50% 50 Ml Syringe) 25 - 50 ml IV UD PRN; Protocol PRN Reason: Hypoglycemia Protocol Stop: 02/23/25 21:30 Ferrous Sulfate (Ferrous Sulfate 325 Mg Tab) 325 mg PO QAM FRANCY Stop: 03/02/25 08:59 Last Admin: 02/03/25 08:38 Dose: 325 mg Gabapentin (Gabapentin 100 Mg Cap) 100 mg PO TID FRANCY Stop: 02/28/25 20:59 Last Admin: 02/03/25 08:38 Dose: 100 mg Glucagon (Glucagon For Inj 1 Mg Vial) 1 mg SQ UD PRN; Protocol PRN Reason: Hypoglycemia Protocol Stop: 02/23/25 21:30 Glucose (Glucose 40% Gel 15 Gm Tube) 15 - 30 gm PO UD PRN; Protocol PRN Reason: Hypoglycemia Protocol Stop: 02/23/25 21:30 Glucose (Glucose 10 Tab/Tube) 4 - 8 tab PO UD PRN; Protocol PRN Reason: Hypoglycemia Protocol Stop: 02/23/25 21:30 Insulin Aspart (Insulin Aspart Per Unit Charge) 0 units SC ACHS FRANCY Stop: 03/01/25 10:59 Last Admin: 02/03/25 11:47 Dose: 13 units Insulin Glargine (Lantus Per Unit Charge) 5 units SQ BID FRANCY Stop: 03/01/25 08:59 Last Admin: 02/03/25 08:39 Dose: 5 units Levothyroxine Sodium (Levothyroxine Sodium 75 Mcg Tablet) 75 mcg NG DAILYBB [facility] Stop: 02/24/25 06:29 Last Admin: 02/03/25 06:34 Dose: 75 mcg Lisinopril (Lisinopril 20 Mg Tab) 20 mg PO PM FRANCY Stop: 03/04/25 20:59 Last Admin: 02/02/25 21:24 Dose: 20 mg Melatonin (Melatonin 3 Mg Tab) 3 mg PO HS PRN PRN Reason: Sleep Stop: 03/01/25 20:59 Last Admin: 01/30/25 21:13 Dose: 3 mg Metoprolol Succinate (Metoprolol Succ 50mg Ext Rel Tab) 50 mg PO BID FRANCY Stop: 03/03/25 08:59 Last Admin: 02/03/25 08:38 Dose: 50 mg Miconazole Nitrate (Miconazole Nitrate Powder 85 Gm) 1 appln EXT BID FRANCY Stop: 02/24/25 20:59 Last Admin: 02/03/25 08:39 Dose: 1 appln Miscellaneous (Carbohydrates For Hypoglycemia ) 15 - 30 gm PO UD PRN PRN Reason: Hypoglycemia Protocol Stop: 02/23/25 21:30 Multi-Ingredient Cream (Eucerin Cr 120 Gm Jar) 1 appln EXT BID FRANCY Stop: 02/24/25 20:59 Last Admin: 02/03/25 08:39 Dose: 1 appln Multivitamins/Minerals (Multi Vit W/Minerals Liquid 15 Ml Udc) 15 ml NG QAM FRANCY Stop: 02/25/25 08:59 Last Admin: 02/03/25 08:39 Dose: 15 ml Olanzapine (Olanzapine 10 Mg/2.1 Ml Sdv) 2.5 mg IM Q8H PRN PRN Reason: Agitation Stop: 02/26/25 22:45 Pantoprazole Sodium (Pantoprazole 40 Mg Tab) 40 mg PO BID FRANCY Stop: 02/28/25 20:59 Last Admin: 02/03/25 08:38 Dose: 40 mg Thiamine HCl (Thiamine Hcl 100 Mg Tab) 100 mg PO QAM FRANCY Stop: 03/02/25 08:59 Last Admin: 02/03/25 08:38 Dose: 100 mg
[2025-02-04 07:00] LABS: Hematocrit (blood only) 33.5 % (42.0-52.0); Hemoglobin 10.1 g/dl (14.0-18.0); Immature Granulocytes # (auto) 0.05 K/uL (0.01-0.20); Immature Granulocytes % (auto) 0.7 %; Mean Corpuscular Hemoglobin 26.1 pg (25.0-34.0); Mean Corpuscular Volume 86.6 fL (80.0-100.0); Platelet Count 236 K/uL (130-400); RDW Standard Deviation 50.5 fL (36.4-46.3); Red Blood Count 3.87 M/uL (4.70-6.10); White Blood Count 6.70 K/ul (4.8-10.8)
[2025-02-04 07:18] LABS: Anion Gap 4.0 (3-11); Blood Urea Nitrogen 14.0 mg/dl (6-23); Calcium 8.9 mg/dl (8.6-10.3); Carbon Dioxide 24.0 mmol/L (21-32); Chloride 112.0 mmol/L (98-107); Creatinine Clr Calc Pharmacy 82.8 ml/min; Glucose 177.0 mg/dl (70-99(Fasting)); Magnesium 1.6 mg/dl (1.7-2.4); Potassium 4.3 mmol/L (3.5-5.1); Sodium 140.0 mmol/L (136-145)
[2025-02-04] MEDS: MAGNESIUM SULFATE / D5W 1 GM/100 ML BAG IV ONE (08:12)
--- NOTE | 2025-02-04 12:51 | Hospitalist Progress Note ---
Date of Service February 04, 2025 Assessment & Plan (1) Acute hypoxemic respiratory failure: Plan: Acute hypoxemic, hypercapnic respiratory failure( required intubation on admission) Acute pulmonary embolism--POA Acute metabolic encephalopathy--POA Suspected multifocal pneumonia secondary to aspiration H/O KARUNA on CPAP H/O SAH --Chest CTA:Acute PE involving all lobes bilaterally. Moderate to large clot burden. RV to LV ratio greater than 1.1 concerning for right heart strain. Dependent consolidation in the lower lobes and lingula. Infection and/or atelectasis more likely than pulmonary infarct. --Venous Doppler:Left lower extremity DVT. No right-sided DVT. --ECHO: Left ventricular EF is normal. Right ventricle systolic function is normal. Borderline left atrial enlargement. Right atrium is moderately dilated. Right ventricular systolic pressure is elevated 50 to 60 mmHg. Mild aortic root dilatation. Inferior vena cava is mildly dilated. Moderate septal hypokinesis. Trace tricuspid regurgitation. 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 car shagger help --Continue IV heparin --Completed IV Zosyn course Continue BiPAP at bedtime Tolerating regular diet Plan to transition to oral anticoagulation as able/long-term benefits versus risks of anticoagulation to be determined Remains clinically stable and denies any significant symptoms except weakness No evidence of bleeding on intravenous heparin Will need to continue oral anticoagulation given pulmonary embolism and also atrial fibrillation Remains medically stable and no evidence of bleeding on intravenous heparin Discussed with the son in detail about the pros and cons of anticoagulation and the patient was started with Eliquis from today 10 mg twice daily for 14 doses and then 5 mg twice daily thereafter to continue He has been stable on current medications and there is no evidence of bleeding He will be discharged to the facility on approval He remains medically stable and denies any significant symptoms Atrial fibrillation with RVR SVTs H/O SAH Given benefits > risks for anticoagulation, continue IV heparin for anticoagulation Continue IV Cardizem drip Home beta-blockers on hold Monitor and replete electrolytes as needed Appreciate cardiology input and recommendation Cardizem drip has been discontinued and the patient has been on metoprolol succinate 50 mg twice daily Remains tachycardic at 106/min- awaiting further recommendation from the art conservator His heart rate seems to be stable at around 96 today and denies any cardiac symptoms Heart rate remains mildly elevated at 109 without any symptoms Heart rate remains elevated at 110 and will increase metoprolol succinate to 100 mg in the morning and 50 mg in the afternoon Acute metabolic encephalopathy Delirium Continue thiamine Melatonin as needed for insomnia Delirium precautions Mental status much improved- and seems to be at his baseline No more delirium and he seems to be at his baseline Acute kidney injury Avoid nephrotoxic agents as able Monitor renal function JERSON resolved B/L buttock varicosities/vascular malformations Monitor for any bleeding issues while on anticoagulation No evidence of bleeding from the varicosities on intravenous heparin No evidence of bleeding from the varicosities with Eliquis Hypothyroidism Thyroid nodules Incidental finding on CT --Neck CT:No definite stenosis of the neck arteries. Indeterminate thyroid nodules. A follow-up thyroid ultrasound could be obtained -- Normal TSH Continue levothyroxine Follow-up as outpatient Microscopic hematuria Monitor CBC May need further evaluation as outpatient No more hematuria Chronic diastolic heart failure Valvular heart disease (moderate TR/mild AR) Echo as above Monitor volume status closely Lisinopril, Jardiance, diuretics on hold Awaiting art conservator to evaluate for the need for lisinopril to control blood pressure DM II HbA1c 6.7 Hold p.o. medications Monitor blood glucose levels Continue insulin per protocol Other chronic conditions: Hypertension Hyperlipidemia PVD GERD Chronic anemia Past alcohol abuse Resume home medication as when appropriate DVT Px: IV Heparin Code Status Full code Disposition Will need rehab placement when medically stable Discussed with the son in detailawaiting placement and likely discharge on Thursday Continue PT and OT -recommending rehab and awaiting placement Admission and Anticipated Discharge Date Admission Date: January 24, 2025 Subjective 02/01/2025 The patient was seen and examined in telemetry unit He has been stable denies any significant symptoms except weakness He does not have any chest pain, palpitation or shortness of breath at rest He denies any other significant symptoms 02/02/2025 The patient was seen and examined in telemetry unit He has been stable but weak and lethargic Denies any significant symptoms 02/03/2025 The patient was seen and examined in telemetry unit He has been feeling much better and denies any significant symptoms Awaiting placement 02/04/2025 The patient was seen and examined in telemetry unit He has been much better today and denies any significant symptoms Heart rate remains elevated though Awaiting placement Review of Systems Review of Systems: All systems reviewed and are unremarkable except as noted below Physical Exam Physical Exam: Lying in bed without any acute distress Constitutional: well developed, well nourished, + ill appearing and + obese Eyes: PERRL, conjunctivae normal, anicteric sclerae ENMT: external ear and nose normal, oropharynx normal Neck: trachea midline, no thyromegaly Respiratory: no respiratory distress Auscultation: + diminished lung sounds and + crackles ( minimal crackles at the bases) Cardiovascular: Rate/Rhythm: + tachycardic and + irregularly irregular Heart Sounds: normal S1 and normal S2; no murmur Extremities: no edema Gastrointestinal (Abdomen): Inspection/Auscultation: normal bowel sounds; abdomen not distended Percussion/Palpation: abdomen soft; abdomen nontender Neurologic: normal touch/pain/proprioception and moves all extremities; no focal motor deficits Lymphatic: no cervical or axillary lymphadenopathy Results & Data Results & Data Vital Signs (Past 12 Hours) Vital Signs Temp Pulse Resp BP Pulse Ox O2 Del Method 02/04/25 12:28 36.9 C 110 H 22 112/79 95 Room Air 02/04/25 08:12 36.7 C 102 H 18 127/77 96 Room Air 02/04/25 03:54 36.6 C 97 H 16 130/79 95 Room Air Laboratory Results Short CBC 02/04/25 Range/Units 06:44 WBC 6.70 (4.8-10.8) K/ul Hgb 10.1 L (14.0-18.0) g/dl Hct 33.5 L (42.0-52.0) % Plt Count 236 (130-400) K/uL BMP 02/04/25 06:44 Sodium 140 Potassium 4.3 Chloride 112 H Carbon Dioxide 24 BUN 14 Creatinine 0.93 Glucose 177 H Calcium 8.9 Medications Administered Current Inpatient Medications Allopurinol (Allopurinol 300 Mg Tab) 300 mg NG QAM FRANCY Stop: 02/24/25 08:59 Last Admin: 02/04/25 08:10 Dose: 300 mg Apixaban (Apixaban 5 Mg Tablet) 10 mg PO BID FRANCY Stop: 02/08/25 21:01 Last Admin: 02/04/25 08:09 Dose: 10 mg Atorvastatin Calcium (Atorvastatin 40 Mg Tab) 40 mg NG QAM FRANCY Stop: 02/24/25 08:59 Last Admin: 02/04/25 08:10 Dose: 40 mg Dextrose (Dextrose 50% 50 Ml Syringe) 25 - 50 ml IV UD PRN; Protocol PRN Reason: Hypoglycemia Protocol Stop: 02/23/25 21:30 Ferrous Sulfate (Ferrous Sulfate 325 Mg Tab) 325 mg PO QAM FRANCY Stop: 03/02/25 08:59 Last Admin: 02/04/25 08:10 Dose: 325 mg Gabapentin (Gabapentin 100 Mg Cap) 100 mg PO TID FRANCY Stop: 02/28/25 20:59 Last Admin: 02/04/25 08:10 Dose: 100 mg Glucagon (Glucagon For Inj 1 Mg Vial) 1 mg SQ UD PRN; Protocol PRN Reason: Hypoglycemia Protocol Stop: 02/23/25 21:30 Glucose (Glucose 40% Gel 15 Gm Tube) 15 - 30 gm PO UD PRN; Protocol PRN Reason: Hypoglycemia Protocol Stop: 02/23/25 21:30 Glucose (Glucose 10 Tab/Tube) 4 - 8 tab PO UD PRN; Protocol PRN Reason: Hypoglycemia Protocol Stop: 02/23/25 21:30 Insulin Aspart (Insulin Aspart Per Unit Charge) 0 units SC ACHS [facility] Stop: 03/01/25 10:59 Last Admin: 02/04/25 12:20 Dose: 10 units Insulin Glargine (Lantus Per Unit Charge) 5 units SQ BID FRANCY Stop: 03/01/25 08:59 Last Admin: 02/04/25 08:08 Dose: 5 units Levothyroxine Sodium (Levothyroxine Sodium 75 Mcg Tablet) 75 mcg NG DAILYBB FRANCY Stop: 02/24/25 06:29 Last Admin: 02/04/25 06:00 Dose: 75 mcg Lisinopril (Lisinopril 20 Mg Tab) 20 mg PO PM FRANCY Stop: 03/04/25 20:59 Last Admin: 02/03/25 19:36 Dose: 20 mg Melatonin (Melatonin 3 Mg Tab) 3 mg PO HS PRN PRN Reason: Sleep Stop: 03/01/25 20:59 Last Admin: 01/30/25 21:13 Dose: 3 mg Metoprolol Succinate (Metoprolol Succ 50mg Ext Rel Tab) 100 mg PO QAM [facility] Stop: 03/07/25 08:59 Metoprolol Succinate (Metoprolol Succ 50mg Ext Rel Tab) 50 mg PO QPM FRANCY Stop: 03/06/25 20:59 Miconazole Nitrate (Miconazole Nitrate Powder 85 Gm) 1 appln EXT BID FRANCY Stop: 02/24/25 20:59 Last Admin: 02/04/25 08:10 Dose: 1 appln Miscellaneous (Carbohydrates For Hypoglycemia ) 15 - 30 gm PO UD PRN PRN Reason: Hypoglycemia Protocol Stop: 02/23/25 21:30 Multi-Ingredient Cream (Eucerin Cr 120 Gm Jar) 1 appln EXT BID FRANCY Stop: 02/24/25 20:59 Last Admin: 02/04/25 08:11 Dose: 1 appln Multivitamins/Minerals (Multi Vit W/Minerals Liquid 15 Ml Udc) 15 ml NG QAM FRANCY Stop: 02/25/25 08:59 Last Admin: 02/04/25 08:10 Dose: 15 ml Olanzapine (Olanzapine 10 Mg/2.1 Ml Sdv) 2.5 mg IM Q8H PRN PRN Reason: Agitation Stop: 02/26/25 22:45 Pantoprazole Sodium (Pantoprazole 40 Mg Tab) 40 mg PO BID FRANCY Stop: 02/28/25 20:59 Last Admin: 02/04/25 08:10 Dose: 40 mg Thiamine HCl (Thiamine Hcl 100 Mg Tab) 100 mg PO QAM FRANCY Stop: 03/02/25 08:59 Last Admin: 02/04/25 08:10 Dose: 100 mg
[2025-02-04] MEDS: TAMSULOSIN HCL 0.4 MG CAP PO SCH (13:55)
[2025-02-04] MEDS: METOPROLOL TARTRATE 25 MG TAB PO ONE (17:48)
[2025-02-04] MEDS: METOPROLOL SUCC 50MG EXT REL TAB PO SCH (20:18)
[2025-02-05] MEDS: METOPROLOL SUCC 50MG EXT REL TAB PO SCH (07:47)
--- NOTE | 2025-02-05 10:47 | Hospitalist Progress Note ---
Date of Service February 05, 2025 Assessment & Plan (1) Acute hypoxemic respiratory failure: Plan: Acute hypoxemic, hypercapnic respiratory failure( required intubation on admission) Acute pulmonary embolism--POA Acute metabolic encephalopathy--POA Suspected multifocal pneumonia secondary to aspiration H/O KARUNA on CPAP H/O SAH --Chest CTA:Acute PE involving all lobes bilaterally. Moderate to large clot burden. RV to LV ratio greater than 1.1 concerning for right heart strain. Dependent consolidation in the lower lobes and lingula. Infection and/or atelectasis more likely than pulmonary infarct. --Venous Doppler:Left lower extremity DVT. No right-sided DVT. --ECHO: Left ventricular EF is normal. Right ventricle systolic function is normal. Borderline left atrial enlargement. Right atrium is moderately dilated. Right ventricular systolic pressure is elevated 50 to 60 mmHg. Mild aortic root dilatation. Inferior vena cava is mildly dilated. Moderate septal hypokinesis. Trace tricuspid regurgitation. 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 customer manager help --Continue IV heparin --Completed IV Zosyn course Continue BiPAP at bedtime Tolerating regular diet Plan to transition to oral anticoagulation as able/long-term benefits versus risks of anticoagulation to be determined Remains clinically stable and denies any significant symptoms except weakness No evidence of bleeding on intravenous heparin Will need to continue oral anticoagulation given pulmonary embolism and also atrial fibrillation Remains medically stable and no evidence of bleeding on intravenous heparin Discussed with the son in detail about the pros and cons of anticoagulation and the patient was started with Eliquis from today 10 mg twice daily for 14 doses and then 5 mg twice daily thereafter to continue He has been stable on current medications and there is no evidence of bleeding He will be discharged to the facility on approval He remains medically stable and denies any significant symptoms No further issues, no bleeding and no respiratory or cardiac symptoms Atrial fibrillation with RVR SVTs H/O SAH Given benefits > risks for anticoagulation, continue IV heparin for anticoagulation Continue IV Cardizem drip Home beta-blockers on hold Monitor and replete electrolytes as needed Appreciate cardiology input and recommendation Cardizem drip has been discontinued and the patient has been on metoprolol succ inate 50 mg twice daily Remains tachycardic at 106/min- awaiting further recommendation from the metal coater His heart rate seems to be stable at around 96 today and denies any cardiac symptoms Heart rate remains mildly elevated at 109 without any symptoms Heart rate remains elevated at 110 and will increase metoprolol succinate to 100 mg in the morning and 50 mg in the afternoon Heart rate seems to be stable with increasing dose of beta-arlin Acute metabolic encephalopathy Delirium Continue thiamine Melatonin as needed for insomnia Delirium precautions Mental status much improved- and seems to be at his baseline No more delirium and he seems to be at his baseline Acute kidney injury Avoid nephrotoxic agents as able Monitor renal function JERSON resolved B/L buttock varicosities/vascular malformations Monitor for any bleeding issues while on anticoagulation No evidence of bleeding from the varicosities on intravenous heparin No evidence of bleeding from the varicosities with Eliquis No bleeding with Eliquis Hypothyroidism Thyroid nodules Incidental finding on CT --Neck CT:No definite stenosis of the neck arteries. Indeterminate thyroid nodules. A follow-up thyroid ultrasound could be obtained -- Normal TSH Continue levothyroxine Follow-up as outpatient Microscopic hematuria Monitor CBC May need further evaluation as outpatient No more hematuria Chronic diastolic heart failure Valvular heart disease (moderate TR/mild AR) Echo as above Monitor volume status closely Lisinopril, Jardiance, diuretics on hold Awaiting metal coater to evaluate for the need for lisinopril to control blood pressure His lisinopril has been restarted DM II HbA1c 6.7 Hold p.o. medications Monitor blood glucose levels Continue insulin per protocol Other chronic conditions: Hypertension Hyperlipidemia PVD GERD Chronic anemia Past alcohol abuse Resume home medication as when appropriate DVT Px: IV Heparin Code Status Full code Disposition Will need rehab placement when medically stable Discussed with the son in detailawaiting placement and likely discharge on Thursday Continue PT and OT -recommending rehab and awaiting placement Admission and Anticipated Discharge Date Admission Date: January 24, 2025 Subjective 02/01/2025 The patient was seen and examined in telemetry unit He has been stable denies any significant symptoms except weakness He does not have any chest pain, palpitation or shortness of breath at rest He denies any other significant symptoms 02/02/2025 The patient was seen and examined in telemetry unit He has been stable but weak and lethargic Denies any significant symptoms 02/03/2025 The patient was seen and examined in telemetry unit He has been feeling much better and denies any significant symptoms Awaiting placement 02/04/2025 The patient was seen and examined in telemetry unit He has been much better today and denies any significant symptoms Heart rate remains elevated though Awaiting placement 02/05/2025 The patient was seen and examined in telemetry unit He has been stable and the heart rate seems to be controlled on increasing dose of beta-arlin Denies any significant symptoms and remains generally weak Review of Systems Review of Systems: All systems reviewed and are unremarkable except as noted below Physical Exam Physical Exam: Lying in bed without any acute distress Constitutional: well developed, well nourished, + ill appearing and + obese Eyes: PERRL, conjunctivae normal, anicteric sclerae ENMT: external ear and nose normal, oropharynx normal Neck: trachea midline, no thyromegaly Respiratory: no respiratory distress Auscultation: + diminished lung sounds and + crackles ( minimal crackles at the bases) Cardiovascular: Rate/Rhythm: + tachycardic and + irregularly irregular Heart Sounds: normal S1 and normal S2; no murmur Extremities: no edema Gastrointestinal (Abdomen): Inspection/Auscultation: normal bowel sounds; abdomen not distended Percussion/Palpation: abdomen soft; abdomen nontender Neurologic: normal touch/pain/proprioception and moves all extremities; no focal motor deficits Lymphatic: no cervical or axillary lymphadenopathy Results & Data Results & Data Vital Signs (Past 12 Hours) Vital Signs Temp Pulse Resp BP Pulse Ox O2 Del Method 02/05/25 08:06 36.4 C L 90 29 H 129/87 98 Room Air 02/05/25 03:43 36.6 C 115 H 18 122/88 95 Room Air 02/04/25 23:57 36.8 C 108 H 18 118/83 92 Room Air Medications Administered Current Inpatient Medications Allopurinol (Allopurinol 300 Mg Tab) 300 mg NG QAM [facility] Stop: 02/24/25 08:59 Last Admin: 02/05/25 07:47 Dose: 300 mg Apixaban (Apixaban 5 Mg Tablet) 10 mg PO BID [facility] Stop: 02/08/25 21:01 Last Admin: 02/05/25 07:47 Dose: 10 mg Atorvastatin Calcium (Atorvastatin 40 Mg Tab) 40 mg NG QAM [facility] Stop: 02/24/25 08:59 Last Admin: 02/05/25 07:47 Dose: 40 mg Dextrose (Dextrose 50% 50 Ml Syringe) 25 - 50 ml IV UD PRN; Protocol PRN Reason: Hypoglycemia Protocol Stop: 02/23/25 21:30 Ferrous Sulfate (Ferrous Sulfate 325 Mg Tab) 325 mg PO QAM [facility] Stop: 03/02/25 08:59 Last Admin: 02/05/25 07:47 Dose: 325 mg Gabapentin (Gabapentin 100 Mg Cap) 100 mg PO TID [facility] Stop: 02/28/25 20:59 Last Admin: 02/05/25 07:47 Dose: 100 mg Glucagon (Glucagon For Inj 1 Mg Vial) 1 mg SQ UD PRN; Protocol PRN Reason: Hypoglycemia Protocol Stop: 02/23/25 21:30 Glucose (Glucose 40% Gel 15 Gm Tube) 15 - 30 gm PO UD PRN; Protocol PRN Reason: Hypoglycemia Protocol Stop: 02/23/25 21:30 Glucose (Glucose 10 Tab/Tube) 4 - 8 tab PO UD PRN; Protocol PRN Reason: Hypoglycemia Protocol Stop: 02/23/25 21:30 Insulin Aspart (Insulin Aspart Per Unit Charge) 0 units SC ACHS [facility] Stop: 03/01/25 10:59 Last Admin: 02/05/25 07:48 Dose: 11 units Insulin Glargine (Lantus Per Unit Charge) 5 units SQ BID [facility] Stop: 03/01/25 08:59 Last Admin: 02/05/25 07:50 Dose: 5 units Levothyroxine Sodium (Levothyroxine Sodium 75 Mcg Tablet) 75 mcg NG DAILYBB [facility] Stop: 02/24/25 06:29 Last Admin: 02/05/25 06:29 Dose: 75 mcg Lisinopril (Lisinopril 20 Mg Tab) 20 mg PO PM [facility] Stop: 03/04/25 20:59 Last Admin: 02/04/25 20:18 Dose: 20 mg Melatonin (Melatonin 3 Mg Tab) 3 mg PO HS PRN PRN Reason: Sleep Stop: 03/01/25 20:59 Last Admin: 01/30/25 21:13 Dose: 3 mg Metoprolol Succinate (Metoprolol Succ 50mg Ext Rel Tab) 100 mg PO QAM [facility] Stop: 03/07/25 08:59 Last Admin: 02/05/25 07:47 Dose: 100 mg Metoprolol Succinate (Metoprolol Succ 50mg Ext Rel Tab) 50 mg PO QPM [facility] Stop: 03/06/25 20:59 Last Admin: 02/04/25 20:18 Dose: 50 mg Miconazole Nitrate (Miconazole Nitrate Powder 85 Gm) 1 appln EXT BID [facility] Stop: 02/24/25 20:59 Last Admin: 02/05/25 07:49 Dose: 1 appln Miscellaneous (Carbohydrates For Hypoglycemia ) 15 - 30 gm PO UD PRN PRN Reason: Hypoglycemia Protocol Stop: 02/23/25 21:30 Multi-Ingredient Cream (Eucerin Cr 120 Gm Jar) 1 appln EXT BID [facility] Stop: 02/24/25 20:59 Last Admin: 02/05/25 07:49 Dose: 1 appln Multivitamins/Minerals (Multi Vit W/Minerals Liquid 15 Ml Udc) 15 ml NG QAM [facility] Stop: 02/25/25 08:59 Last Admin: 02/05/25 07:48 Dose: 15 ml Olanzapine (Olanzapine 10 Mg/2.1 Ml Sdv) 2.5 mg IM Q8H PRN PRN Reason: Agitation Stop: 02/26/25 22:45 Pantoprazole Sodium (Pantoprazole 40 Mg Tab) 40 mg PO BID [facility] Stop: 02/28/25 20:59 Last Admin: 02/05/25 07:48 Dose: 40 mg Tamsulosin HCl (Tamsulosin Hcl 0.4 Mg Cap) 0.4 mg PO QAM [facility] Stop: 03/06/25 13:14 Last Admin: 02/05/25 07:48 Dose: 0.4 mg Thiamine HCl (Thiamine Hcl 100 Mg Tab) 100 mg PO QAM [facility] Stop: 03/02/25 08:59 Last Admin: 02/05/25 07:48 Dose: 100 mg
[2025-02-06 06:02] LABS: Hematocrit (blood only) 31.8 % (42.0-52.0); Hemoglobin 9.6 g/dl (14.0-18.0); Immature Granulocytes # (auto) 0.03 K/uL (0.01-0.20); Immature Granulocytes % (auto) 0.4 %; Mean Corpuscular Hemoglobin 25.7 pg (25.0-34.0); Mean Corpuscular Volume 85.0 fL (80.0-100.0); Platelet Count 253 K/uL (130-400); RDW Standard Deviation 49.7 fL (36.4-46.3); Red Blood Count 3.74 M/uL (4.70-6.10); White Blood Count 8.47 K/ul (4.8-10.8)
[2025-02-06 06:19] LABS: Anion Gap 4.0 (3-11); Blood Urea Nitrogen 15.0 mg/dl (6-23); Calcium 8.9 mg/dl (8.6-10.3); Carbon Dioxide 23.0 mmol/L (21-32); Chloride 109.0 mmol/L (98-107); Creatinine Clr Calc Pharmacy 73.3 ml/min; Glucose 194.0 mg/dl (70-99(Fasting)); Magnesium 1.6 mg/dl (1.7-2.4); Potassium 4.5 mmol/L (3.5-5.1); Sodium 136.0 mmol/L (136-145)
--- NOTE | 2025-02-06 10:20 | Hospitalist Progress Note ---
Date of Service February 06, 2025 Assessment & Plan (1) Acute hypoxemic respiratory failure: Plan: Acute hypoxemic, hypercapnic respiratory failure( required intubation on admission) Acute pulmonary embolism--POA Acute metabolic encephalopathy--POA Suspected multifocal pneumonia secondary to aspiration H/O KARUNA on CPAP H/O SAH --Chest CTA:Acute PE involving all lobes bilaterally. Moderate to large clot burden. RV to LV ratio greater than 1.1 concerning for right heart strain. Dependent consolidation in the lower lobes and lingula. Infection and/or atelectasis more likely than pulmonary infarct. --Venous Doppler:Left lower extremity DVT. No right-sided DVT. --ECHO: Left ventricular EF is normal. Right ventricle systolic function is normal. Borderline left atrial enlargement. Right atrium is moderately dilated. Right ventricular systolic pressure is elevated 50 to 60 mmHg. Mild aortic root dilatation. Inferior vena cava is mildly dilated. Moderate septal hypokinesis. Trace tricuspid regurgitation. 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 director on air help --Continue IV heparin --Completed IV Zosyn course Continue BiPAP at bedtime Tolerating regular diet Plan to transition to oral anticoagulation as able/long-term benefits versus risks of anticoagulation to be determined Remains clinically stable and denies any significant symptoms except weakness No evidence of bleeding on intravenous heparin Will need to continue oral anticoagulation given pulmonary embolism and also atrial fibrillation Remains medically stable and no evidence of bleeding on intravenous heparin Discussed with the son in detail about the pros and cons of anticoagulation and the patient was started with Eliquis from today 10 mg twice daily for 14 doses and then 5 mg twice daily thereafter to continue He has been stable on current medications and there is no evidence of bleeding He will be discharged to the facility on approval He remains medically stable and denies any significant symptoms He has been tolerating Eliquis without any evidence of bleeding and hemoglobin remained stable He will be transferred to the facility when accepted Atrial fibrillation with RVR SVTs H/O SAH Given benefits > risks for anticoagulation, continue IV heparin for anticoagulation Continue IV Cardizem drip Home beta-blockers on hold Monitor and replete electrolytes as needed Appreciate cardiology input and recommendation Cardizem drip has been discontinued and the patient has been on metoprolol succinate 50 mg twice daily Remains tachycardic at 106/min- awaiting further recommendation from the rn or lpn His heart rate seems to be stable at around 96 today and denies any cardiac symptoms Heart rate remains mildly elevated at 109 without any symptoms Heart rate remains elevated at 110 and will increase metoprolol succinate to 100 mg in the morning and 50 mg in the afternoon Heart rate seems to be stable with increasing dose of beta-arlin Heart rate is controlled with current doses of beta-arlin Acute metabolic encephalopathy Delirium Continue thiamine Melatonin as needed for insomnia Delirium precautions Mental status much improved- and seems to be at his baseline No more delirium and he seems to be at his baseline Acute kidney injury Avoid nephrotoxic agents as able Monitor renal function JERSON resolved B/L buttock varicosities/vascular malformations Monitor for any bleeding issues while on anticoagulation No evidence of bleeding from the varicosities on intravenous heparin No evidence of bleeding from the varicosities with Eliquis No bleeding with Eliquis Hypothyroidism Thyroid nodules Incidental finding on CT --Neck CT:No definite stenosis of the neck arteries. Indeterminate thyroid nodules. A follow-up thyroid ultrasound could be obtained -- Normal TSH Continue levothyroxine Follow-up as outpatient Microscopic hematuria Monitor CBC May need further evaluation as outpatient No more hematuria Chronic diastolic heart failure Valvular heart disease (moderate TR/mild AR) Echo as above Monitor volume status closely Lisinopril, Jardiance, diuretics on hold Awaiting rn or lpn to evaluate for the need for lisinopril to control blood pressure His lisinopril has been restarted And his torsemide with a smaller dose and spironolactone will be restarted on discharge DM II HbA1c 6.7 Hold p.o. medications Monitor blood glucose levels Continue insulin per protocol Other chronic conditions: Hypertension Hyperlipidemia PVD GERD Chronic anemia Past alcohol abuse Resume home medication as when appropriate DVT Px: IV Heparin Code Status Full code Disposition Will need rehab placement when medically stable Discussed with the son in detailawaiting placement and likely discharge on Thursday Continue PT and OT -recommending rehab and awaiting placement Admission and Anticipated Discharge Date Admission Date: January 24, 2025 Subjective 02/01/2025 The patient was seen and examined in telemetry unit He has been stable denies any significant symptoms except weakness He does not have any chest pain, palpitation or shortness of breath at rest He denies any other significant symptoms 02/02/2025 The patient was seen and examined in telemetry unit He has been stable but weak and lethargic Denies any significant symptoms 02/03/2025 The patient was seen and examined in telemetry unit He has been feeling much better and denies any significant symptoms Awaiting placement 02/04/2025 The patient was seen and examined in telemetry unit He has been much better today and denies any significant symptoms Heart rate remains elevated though Awaiting placement 02/05/2025 The patient was seen and examined in telemetry unit He has been stable and the heart rate seems to be controlled on increasing dose of beta-arlin Denies any significant symptoms and remains generally weak 02/06/2025 The patient was seen and examined in telemetry unit He has been stable and denies any significant symptoms Heart rate remains minimally elevated at 108 He is stable to be transferred to the facility when accepted Review of Systems Review of Systems: All systems reviewed and are unremarkable except as noted below Physical Exam Physical Exam: Lying in bed without any acute distress Constitutional: well developed, well nourished, + ill appearing and + obese Eyes: PERRL, conjunctivae normal, anicteric sclerae ENMT: external ear and nose normal, oropharynx normal Neck: trachea midline, no thyromegaly Respiratory: no respiratory distress Auscultation: + diminished lung sounds and + crackles ( minimal crackles at the bases) Cardiovascular: Rate/Rhythm: + tachycardic and + irregularly irregular Heart Sounds: normal S1 and normal S2; no murmur Extremities: no edema Gastrointestinal (Abdomen): Inspection/Auscultation: normal bowel sounds; abdomen not distended Percussion/Palpation: abdomen soft; abdomen nontender Musculoskeletal: No acute arthritis involving any of the joint Neurologic: normal touch/pain/proprioception and moves all extremities; no focal motor deficits Lymphatic: no cervical or axillary lymphadenopathy Results & Data Results & Data Vital Signs (Past 12 Hours) Vital Signs Temp Pulse Resp BP Pulse Ox O2 Del Method 02/06/25 07:12 37.3 C 108 H 18 127/78 94 Room Air 02/06/25 03:50 37.4 C 113 H 18 127/79 93 Room Air 02/06/25 00:18 37.5 C 116 H 18 131/78 95 Room Air Laboratory Results Short CBC 02/06/25 Range/Units 05:40 WBC 8.47 (4.8-10.8) K/ul Hgb 9.6 L (14.0-18.0) g/dl Hct 31.8 L (42.0-52.0) % Plt Count 253 (130-400) K/uL [facility] 02/06/25 05:40 Sodium 136 Potassium 4.5 Chloride 109 H Carbon Dioxide 23 BUN 15 Creatinine 1.05 Glucose 194 H Calcium 8.9 Medications Administered Current Inpatient Medications Allopurinol (Allopurinol 300 Mg Tab) 300 mg NG QAM [facility] Stop: 02/24/25 08:59 Last Admin: 02/06/25 07:47 Dose: 300 mg Apixaban (Apixaban 5 Mg Tablet) 10 mg PO BID [facility] Stop: 02/08/25 21:01 Last Admin: 02/06/25 07:46 Dose: 10 mg Atorvastatin Calcium (Atorvastatin 40 Mg Tab) 40 mg NG QAM [facility] Stop: 02/24/25 08:59 Last Admin: 02/06/25 07:48 Dose: 40 mg Dextrose (Dextrose 50% 50 Ml Syringe) 25 - 50 ml IV UD PRN; Protocol PRN Reason: Hypoglycemia Protocol Stop: 02/23/25 21:30 Ferrous Sulfate (Ferrous Sulfate 325 Mg Tab) 325 mg PO QAM [facility] Stop: 03/02/25 08:59 Last Admin: 02/06/25 07:48 Dose: 325 mg Gabapentin (Gabapentin 100 Mg Cap) 100 mg PO TID [facility] Stop: 02/28/25 20:59 Last Admin: 02/06/25 07:47 Dose: 100 mg Glucagon (Glucagon For Inj 1 Mg Vial) 1 mg SQ UD PRN; Protocol PRN Reason: Hypoglycemia Protocol Stop: 02/23/25 21:30 Glucose (Glucose 40% Gel 15 Gm Tube) 15 - 30 gm PO UD PRN; Protocol PRN Reason: Hypoglycemia Protocol Stop: 02/23/25 21:30 Glucose (Glucose 10 Tab/Tube) 4 - 8 tab PO UD PRN; Protocol PRN Reason: Hypoglycemia Protocol Stop: 02/23/25 21:30 Insulin Aspart (Insulin Aspart Per Unit Charge) 0 units SC ACHS [facility] Stop: 03/01/25 10:59 Last Admin: 02/06/25 07:49 Dose: 9 units Insulin Glargine (Lantus Per Unit Charge) 5 units SQ BID [facility] Stop: 03/01/25 08:59 Last Admin: 08/18/25 07:49 Dose: 5 units Levothyroxine Sodium (Levothyroxine Sodium 75 Mcg Tablet) 75 mcg NG DAILYBB [facility] Stop: 02/24/25 06:29 Last Admin: 02/06/25 05:44 Dose: 75 mcg Lisinopril (Lisinopril 20 Mg Tab) 20 mg PO PM [facility] Stop: 03/04/25 20:59 Last Admin: 02/05/25 20:29 Dose: 20 mg Melatonin (Melatonin 3 Mg Tab) 3 mg PO HS PRN PRN Reason: Sleep Stop: 03/01/25 20:59 Last Admin: 01/30/25 21:13 Dose: 3 mg Metoprolol Succinate (Metoprolol Succ 50mg Ext Rel Tab) 100 mg PO QAM [facility] Stop: 03/07/25 08:59 Last Admin: 02/06/25 07:47 Dose: 100 mg Metoprolol Succinate (Metoprolol Succ 50mg Ext Rel Tab) 50 mg PO QPM [facility] Stop: 03/06/25 20:59 Last Admin: 02/05/25 20:30 Dose: 50 mg Miconazole Nitrate (Miconazole Nitrate Powder 85 Gm) 1 appln EXT BID [facility] Stop: 02/24/25 20:59 Last Admin: 02/06/25 07:48 Dose: 1 appln Miscellaneous (Carbohydrates For Hypoglycemia ) 15 - 30 gm PO UD PRN PRN Reason: Hypoglycemia Protocol Stop: 02/23/25 21:30 Multi-Ingredient Cream (Eucerin Cr 120 Gm Jar) 1 appln EXT BID [facility] Stop: 02/24/25 20:59 Last Admin: 02/06/25 07:49 Dose: 1 appln Multivitamins/Minerals (Multi Vit W/Minerals Liquid 15 Ml Udc) 15 ml NG QAM [facility] Stop: 02/25/25 08:59 Last Admin: 02/06/25 07:46 Dose: 15 ml Olanzapine (Olanzapine 10 Mg/2.1 Ml Sdv) 2.5 mg IM Q8H PRN PRN Reason: Agitation Stop: 02/26/25 22:45 Pantoprazole Sodium (Pantoprazole 40 Mg Tab) 40 mg PO BID [facility] Stop: 02/28/25 20:59 Last Admin: 02/06/25 07:47 Dose: 40 mg Tamsulosin HCl (Tamsulosin Hcl 0.4 Mg Cap) 0.4 mg PO QAM [facility] Stop: 03/06/25 13:14 Last Admin: 02/06/25 07:48 Dose: 0.4 mg Thiamine HCl (Thiamine Hcl 100 Mg Tab) 100 mg PO QAM [facility] Stop: 03/02/25 08:59 Last Admin: 02/06/25 07:48 Dose: 100 mg
[2025-02-06] MEDS: TORSEMIDE 20 MG TAB PO SCH (11:33)
[2025-02-06] MEDS: SPIRONOLACTONE 12.5 MG TAB PO SCH (11:33)
--- NOTE | 2025-02-06 16:02 | Cardiology Progress Note ---
Date of Service February 06, 2025 Assessment & Plan (1) Bilateral pulmonary embolism: (2) Atrial fibrillation with rapid ventricular response: (3) Bleeding from wound: (4) Acute encephalopathy: Plan: Assessment: 74 year old male admitted with acute respiratory failure after being found at his place of residence unresponsive with a blood glucose level of 32mg/dL. Patient was initially intubated for airway protection out of concern for possible aspiration. CT imaging revealed bilateral pulmonary emboli with large clot burden and additional concern for RV strain. EKG demonstrated Atrial fibrillation (known history) and patient was placed on a Cardizem gtt for rate control. Heparin gtt was started due to clot burden and has since been transitioned to Eliquis. * increase metoprolol succinate from 100 mg am / 50 mg PM to 100 mg by mouth twice daily. * Add digoxin * Supplement magnesium and recheck Mg level tomorrow. I spent a total of 35 minutes on the date of service in preparation, delivery, and documentation of the care provided to this patient, excluding any time spent in the performance of separately billed services. Daniella Lin,DO Admission and Anticipated Discharge Date Admission Date: January 24, 2025 Subjective Patient seen in cardiology follow up. More alert than he was when I saw him a week ago. Patient reassessed per request of Dr Colon for ongoing elevated ventricular rates. Rates 110-115 bpm during my assessment. Patient with no subjective symptom of elevated HR. Physical Exam Constitutional: WD/WN, vitals as above + ill appearing (Chronically ill in appearance) Neck: trachea midline Respiratory: Auscultation: + diminished lung sounds (Mildly decreased breath sounds at the base); no crackles and no wheezes Cardiovascular: Rate/Rhythm: + tachycardic and + irregularly irregular Heart Sounds: no murmur Vessels: no JVD Extremities: no edema Gastrointestinal (Abdomen): normal bowel sounds, soft, nontender, no hepatosplenomegaly Results & Data Vital Signs (Past 12 Hours) Vital Signs Temp Pulse Resp BP BP Pulse Ox O2 Del Method 02/06/25 15:30 37.0 C 118 H 19 120/71 96 Room Air 02/06/25 11:08 36.6 C 125 H 22 101/74 95 Room Air 02/06/25 07:12 37.3 C 108 H 18 127/78 94 Room Air Laboratory Results CBC 02/06/25 Range/Units 05:40 WBC 8.47 (4.8-10.8) K/ul RBC 3.74 L (4.70-6.10) M/uL Hgb 9.6 L (14.0-18.0) g/dl Hct 31.8 L (42.0-52.0) % Plt Count 253 (130-400) K/uL Neut # (Auto) 6.06 (1.40-6.50) K/uL Lymph # (Auto) 1.37 (1.20-3.40) K/uL [place] # (Auto) 0.83 H (0.11-0.59) K/uL Eos # (Auto) 0.15 (0.00-0.50) K/uL Baso # (Auto) 0.03 (0.00-0.20) K/uL Comprehensive Metabolic Panel 02/06/25 Range/Units 05:40 Sodium 136 (136-145) mmol/L Potassium 4.5 (3.5-5.1) mmol/L Chloride 109 H (98-107) mmol/L Carbon Dioxide 23 (21-32) mmol/L BUN 15 (6-23) mg/dl Creatinine 1.05 (0.6-1.4) mg/dl Glucose 194 H (70-99(Fasting)) mg/dl Calcium 8.9 (8.6-10.3) mg/dl Coding Level of Care Code 99270 SUB INP/OBS CARE 2/35MIN Diagnoses Bilateral pulmonary embolism I26.99 Atrial fibrillation with rapid ventricular response I48.91 Bleeding from wound T14.8XXA Acute encephalopathy G93.40
[2025-02-06] MEDS: DIGOXIN 250 MCG in SYRINGE 9 ML IV STA (16:19)
[2025-02-06] MEDS: MAGNESIUM OXIDE 400 MG TAB PO ONE (16:20)
[2025-02-06] MEDS: METOPROLOL SUCC 50MG EXT REL TAB PO SCH (20:22)
[2025-02-07 07:26] VITALS: PULSE 94; RESP 22; TEMP 97.7; O2SAT 93
[2025-02-07] MEDS: MAGNESIUM OXIDE 400 MG TAB PO SCH (08:11)
--- NOTE | 2025-02-07 10:10 | Discharge Summary ---
Discharge Summary Date of Service February 07, 2025 Principal Dx & Hospital Course #1 = Principal Diagnosis (1) Acute hypoxemic respiratory failure: (2) Aspiration into airway: (3) Bilateral pulmonary embolism: (4) Acute encephalopathy: (5) Atrial fibrillation with rapid ventricular response: (6) HTN (hypertension): (7) DM (diabetes mellitus): (8) Paroxysmal a-fib: (9) Aspiration pneumonia: (10) Venous malformation: (11) Acute kidney injury: (12) Left leg DVT: Plan Patient 75-year-old gentleman who Presented to the emergency room after he was found unresponsive on a welfare check. Unknown downtime in the field. Patient was severely encephalopathic and cannot protect his airway and was intubated and placed on the ventilator. Patient was admitted to the ICU. He was diagnosed with bilateral pulmonary embolism as well as multifocal aspiration pneumonia. He was treated with antibiotics. He was placed on anticoagulation for his DVT PE. Patient has a known venous malformation that does bleed intermittently on his buttocks however this remains stable throughout his hospitalization. His ICU stay was complicated by atrial fibrillation with rapid ventricular response. Cardiology consultation was obtained. His rates were controlled with increasing beta-arlin in addition to digoxin. The patient's encephalopathy recovered. He was able to be extubated. His vital signs stabilized and was transferred out of the ICU. He was transition to oral anticoagulation with Eliquis. He completed a course of antibiotics here in the hospital. He also had some urinary retention due to his acute illness. Daniels catheter was placed. He started Flomax. And Daniels catheter will be maintained while he undergoes therapies at correction facility. Patient was seen by therapies. He was severely deconditioned. Case management was involved in his care and help coordinate discharge to correction facility for rehabilitation. Echocardiogram performed during this hospitalization showed normal ejection fraction some slightly increased right ventricular pressures. On the day of discharge patient's atrial fibrillation overall was controlled. He was tolerating his diet. He was overall weak but steadily improving. On oral medications continue his care and rehabilitation and correction facility. Notes For Next Care Provider Continue therapies Will need anticoagulation lifelong in the setting of atrial fibrillation Consider following laboratory studies in 10 to 14 days As patient continues to improve and appetite improves may need additional adjustments in his diabetes regimen Medication Changes From Visit Eliquis for treatment of DVT/PE will need lifelong anticoagulation for atrial f ibrillation Insulin dosing adjusted, diet altered here in the hospital versus what he was at home Admission HPI Per Admitting Provider History obtained from ED provider and records. Unable to obtain history from patient secondary to unresponsive/intubated state. 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 Recent confinement last month for intermittently bleeding sacrococcygeal wounds. Outpatient vascular and plastic surgery consultations recommended by surgery. Hemoglobin down to 10 from 13 at time of discharge. No recurrence of bleeding since discharge as per outpatient PCP follow-up note from 2 weeks ago. [facility] vascular surgery later recommended IR referral for management of buttock venous malformation upon correspondence with PCP. Patient noted to be unresponsive on welfare check today. BSG 30s. Patient brought to ER for evaluation. Concern for aspiration with gasping/gurgling respiration as per ED provider. Lowest O2 sats of 60s documented. Subsequent intubation done at the ER. 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 Lungs: Clear to auscultation, decreased, no wheezes rales or rhonchi CV: S1-S2, irregular Abdomen: Soft, nontender, nondistended Extremities: No significant edema Neuro: No focal deficits, generalized weakness Psych: Cooperative, normal mood Updated Medication List Medication Instructions Recorded Confirmed Type clonidine HCl 0.3 mg tablet 0.3 mg PO BID 03/18/18 01/24/25 History terazosin 2 mg capsule 2 mg PO HS 04/28/18 01/24/25 History empagliflozin 10 mg tablet 10 mg PO QAM 12/02/23 01/24/25 History (Jardiance) insulin glargine 100 unit/mL (3 75 unit subcut HS 06/12/24 08/05/25 History mL) subcutaneous pen (Lantus Solostar U-100 Insulin) liraglutide 0.6 mg/0.1 mL (18 mg/3 1.2 mg subcut QAM 12/02/23 01/24/25 History mL) subcutaneous pen injector (Victoza 3-Jak) metoprolol succinate 100 mg 100 mg PO QAM 12/02/23 01/24/25 History tablet,extended release 24 hr metoprolol succinate 25 mg 12.5 mg PO QPM 12/02/23 01/24/25 History tablet,extended release 24 hr metoprolol succinate 50 mg 50 mg PO HS 12/02/23 01/24/25 History tablet,extended release 24 hr torsemide 20 mg tablet 40 mg PO BID 12/02/23 01/24/25 History zolpidem 10 mg tablet 10 mg PO HS PRN Sleep 12/25/23 01/24/25 History pantoprazole 40 mg tablet,delayed 40 mg PO BID 01/24/25 01/24/25 History release allopurinol 300 mg tablet 300 mg PO QAM #30 tabs 02/07/25 Rx apixaban 5 mg tablet (Eliquis) See Rx Instructions .Route 02/07/25 Rx .COMPLEX #74 tabs atorvastatin 40 mg tablet 40 mg PO QAM #30 tabs 02/07/25 Rx digoxin 125 mcg (0.125 mg) tablet 0.125 mg PO DAILY@1600 #30 tabs 02/07/25 Rx (Digitek) ferrous sulfate 325 mg (65 mg 325 mg PO QAM #30 tabs 02/07/25 Rx iron) tablet,delayed release gabapentin 100 mg capsule 100 mg PO TID #90 caps 02/07/25 Rx insulin glargine 100 unit/mL 5 unit (0.05 mL) subcut BID #10 mL 02/07/25 Rx subcutaneous solution (Lantus U-100 Insulin) levothyroxine 75 mcg tablet 75 mcg PO DAILYBB #30 tabs 02/07/25 Rx lisinopril 20 mg tablet 20 mg PO PM #30 tabs 02/07/25 Rx magnesium oxide 400 mg (241.3 mg 400 mg PO QAM #30 tabs 02/07/25 Rx magnesium) tablet melatonin 3 mg tablet 3 mg PO HS PRN sleep #10 tabs 02/07/25 Rx metformin 500 mg tablet 500 mg PO BIDM #60 tabs 02/07/25 Rx metoprolol succinate 50 mg 100 mg (2 x 50 mg) PO BID #60 tabs 02/07/25 Rx tablet,extended release 24 hr miconazole nitrate 2 % topical 1 applic EXT BID #85 grams 02/07/25 Rx powder (Desenex) spironolactone 25 mg tablet 12.5 mg (1/2 x 25 mg) PO QAM #30 02/07/25 Rx tabs tamsulosin 0.4 mg capsule 0.4 mg PO QAM #30 caps 02/07/25 Rx thiamine HCl (vitamin B1) 100 mg 100 mg PO QAM #30 tabs 02/07/25 Rx tablet Hospital Stay Data Consultations 01/24/25 20:22 ED Decision to Admit Stat 01/24/25 21:31 Consult Elevator Operator Freight Routine 01/27/25 10:02 Consult Cardiology Routine Diagnostic Imagining Performed 01/24/25 18:34 CT head/brain wo con Stat 01/24/25 19:09 CT abd pelvis IV con only Stat CT chest diagnostic w con Stat CTA head w con [CT angio head w con] Stat CTA neck with con [CT angio neck with con] Stat 01/24/25 20:23 CT for pulmonary embolism PE [CT angio chest PE protocol] Stat 01/25/25 US venous doppler LE BI Routine Reviewed imaging, laboratory and diagnostic studies. Pertinent findings as below. Echocardiogram showed some mildly increased right ventricular pressures, I refer to full report for details most recent chest x-ray from 01/27/2025 showed some atelectasis, no consolidation Ultrasound of the lower extremities revealed left lower extremity DVT within the popliteal vein CTA of the chest showed bilateral pulmonary embolism with moderate to large clot burden and some evidence of right ventricular strain Head CT showed old infarctions and chronic small vessel disease but no acute infarction Hemoglobin 9.6 Platelets of 253 Electrolytes stable Creatinine 1.05 Magnesium 1.7 Pending Results Patient Have Any Pending Studies at Discharge: No Discharge Instructions Given to Patient (Per Discharging Provider) Continue with therapies Continue with anticoagulation Monitor CBC and BMP in approximately 1 week Total Time Total Time Spent Total Time Spent (In Minutes): 39
[2025-02-07 11:46] VITALS: BP 120/71
[2025-02-07] MEDS ORDERED: DIGOXIN 0.125 MG TAB PO SCH (16:00)
== END 2025-02-07 13:31 | DRG 208 ==
LOC: ED 18:23 → SUATTDRO 20:53 → 1E 20:53 → 2E 01-30 12:00